=== PATIENT | female | born 1955 | race Caucasian/White ===

== ENCOUNTER 2016-11-17 13:54 | Outpatient (CLI) | payer MEDICAID | END 2016-11-17 13:55 | disposition home or self-care (01) | DX: M47.812 Spondylosis without myelopathy or radiculopathy, cervical region (principal) ==

== ENCOUNTER 2016-12-26 06:44 | Emergency (ER) | payer MEDICAID ==
[2016-12-26] MEDS ORDERED: ONDANSETRON ODT 4 MG TABLET TL STA (07:37)
[2016-12-26] MEDS ORDERED: MECLIZINE 12.5 MG TABLET PO STA (07:37)
[2016-12-26] MEDS ORDERED: MECLIZINE 12.5 MG TABLET PO ONE (07:41)
[2016-12-26] MEDS ORDERED: ONDANSETRON ODT 4 MG TABLET ONE (07:41)
== END 2016-12-26 09:35 | disposition home or self-care (01) ==
DX: R11.0 Nausea (principal); R42 Dizziness and giddiness
CPT/HCPCS: 36415; 80053; 82533; 83690; 83735; 85025; 85651; 87339; 99283; A9270; Q0162

== ENCOUNTER 2017-02-01 01:32 | Emergency (ER) | payer MEDICAID ==
[2017-02-01] MEDS ORDERED: OXYBUTYNIN 5MG TABLET PO STA (02:41)
== END 2017-02-01 02:56 | disposition home or self-care (01) ==
DX: R35.0 Frequency of micturition (principal); R30.0 Dysuria; R03.0 Elevated blood-pressure reading, without diagnosis of hypertension
CPT/HCPCS: 81003; 99283; A9270

== ENCOUNTER 2017-04-19 09:00 | Outpatient (CLI) | payer MEDICAID ==
[2017-04-19 09:49] LABS: FERRITIN 44.4 ng/mL (11.0-306.8)
[2017-04-19 09:54] LABS: FOLATE 21.55 ng/mL (5.90 - >24.8)
== END 2017-04-19 09:01 | disposition home or self-care (01) ==
LOC: LAB 09:00
PROVIDERS: ATTEND Family Medicine
DX: E87.6 Hypokalemia (principal)
CPT/HCPCS: 36415; 82728; 82746

== ENCOUNTER 2017-05-04 14:08 | Emergency (ER) | payer MEDICAID ==
--- NOTE | 2017-05-04 14:18 | ED Physician Documentation ---
PD HPI DYSPNEA - Stated complaint Stated Complaint: SOA - Chief complaint Chief Complaint: Resp - History obtained from History obtained from: Patient - History of Present Illness Timing - onset: How many days ago (9) Timing - onset during: Light activity Timing - duration: Days (9) Timing - details: Gradual onset, Still present, Waxing and waning Inciting event(s): URI (has had chest cough and congestion for 9 days, increased the past 2 days and with dyspnea at times.) Improved by: Sitting up Worsened by: Laying flat, Coughing Associated symptoms: Cough, Wheezing (tightness with cough). No: Fever, Hemoptysis, Palpitations, Bilateral edema Recently seen: Not recently seen Review of Systems Constitutional: reports: Chills (the past 2 days), Myalgias. denies: Fever Nose: reports: Congestion. denies: Rhinorrhea / runny nose Throat: denies: Sore throat Cardiac: denies: Chest pain / pressure, Palpitations Respiratory: reports: Dyspnea, Cough GI: denies: Nausea, Vomiting, Diarrhea Skin: denies: Rash, Lesions Neurologic: reports: Generalized weakness. 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 HEENT: Tonsil/Adenoidectomy - Present Medications Home Medications: Ambulatory Orders Medication Instructions Recorded Confirmed Cyclobenzaprine [Flexeril] 5 mg PO QPM PRN 12/15/14 02/01/17 Acetaminophen/Cod 300/30 [Tylenol 0.5 tab PO Q4HR PRN 08/04/15 02/01/17 #3] Cholecalciferol (Vitamin D3) 1,000 unit PO DAILY 10/14/16 02/01/17 [Vitamin D3] Cyanocobalamin (Vitamin B-12) 1,000 mcg PO DAILY 10/14/16 02/01/17 [Vitamin B-12] Multiple Herbs 10/14/16 Red Marine Algae 10/14/16 clonazePAM [KlonoPIN] 0.25 mg PO BID 10/14/16 02/01/17 Amitriptyline [Elavil] 10 mg ORAL QPM 12/26/16 02/01/17 Meclizine [Antivert] 12.5 mg PO Q6H PRN #30 tablet 12/26/16 02/01/17 Ondansetron HCl [Zofran] 4 mg PO Q6H PRN #20 tablet 12/26/16 02/01/17 Oxybutynin Chloride [Ditropan Xl] 5 mg PO DAILY #10 tab.er.24 02/01/17 Azithromycin [Zithromax] 250 mg PO DAILY #6 tablet 05/04/17 Dexamethasone [Decadron] 4 mg PO DAILY #5 tablet 05/04/17 - Allergies Allergies/Adverse Reactions: Allergies Allergy/AdvReac Type Severity Reaction Status Date / Time lithium [[place]] Allergy Severe swelling Verified 02/01/17 01:41 albuterol Allergy Intermediate tachycardia Verified 02/01/17 01:41 hydromorphone HCl * Allergy Mild itchy Verified 02/01/17 01:41 [From Dilaudid] - Social History Does the pt smoke?: No Smoking Status: Never smoker Does the pt drink ETOH?: No Does the pt have substance abuse?: Yes - Immunizations Immunizations are current?: Yes - POLST Patient has POLST: No PD ED PE NORMAL - Vitals Vital signs reviewed: Yes - General General: Alert and oriented X 3, No acute distress, Well developed/nourished - HEENT HEENT: Ears normal, Moist mucous membranes, Pharynx benign - Neck Neck: Supple, no meningeal sign, No adenopathy - Cardiac Cardiac: RRR, No murmur - Respiratory Respiratory: Clear bilaterally - Abdomen Abdomen: Normal bowel sounds, Soft, Non tender - Back Back: No CVA TTP - Derm Derm: Normal color, Warm and dry - Extremities Extremities: No edema, No calf tenderness / cord - Neuro Neuro: Alert and oriented X 3, No motor deficit, Normal speech Results - Vitals Vitals: Vital Signs - 24 hr 05/04/17 05/04/17 05/04/17 14:13 15:18 16:11 Temperature 36.8 C 36.9 C Heart Rate 117 H 79 77 Respiratory 22 18 16 Rate Blood Pressure 179/87 H 139/57 H 132/62 H O2 Saturation 99 99 98 Oxygen O2 Source Room air - Labs Labs: Laboratory Tests 05/04/17 05/04/17 05/04/17 15:07 15:07 15:07 WBC 5.5 RBC 4.53 Hgb 13.5 Hct 39.2 MCV 86.6 MCH 29.9 MCHC 34.5 RDW 12.3 Plt Count 254 MPV 7.3 L Neut # 3.1 Lymph # 1.9 [place] # 0.5 Eos # 0.1 Baso # 0.0 Absolute Nucleated RBC 0.00 Nucleated RBCs 0.0 Sodium 139 Potassium 3.7 Chloride 106 Carbon Dioxide 26 Anion Gap 7.0 BUN 12 Creatinine 0.6 Estimated GFR (MDRD) 101 Glucose 99 Calcium 9.3 Total Bilirubin 0.4 AST 21 ALT 12 Alkaline Phosphatase 96 Troponin I < 0.04 B-Natriuretic Peptide Total Protein 7.0 Albumin 4.6 Globulin 2.4 Albumin/Globulin Ratio 1.9 Lipase 34 05/04/17 15:07 WBC RBC Hgb Hct MCV MCH MCHC RDW Plt Count MPV Neut # Lymph # [place] # Eos # Baso # Absolute Nucleated RBC Nucleated RBCs Sodium Potassium Chloride Carbon Dioxide Anion Gap BUN Creatinine Estimated GFR (MDRD) Glucose Calcium Total Bilirubin AST ALT Alkaline Phosphatase Troponin I B-Natriuretic Peptide 30 Total Protein Albumin Globulin Albumin/Globulin Ratio Lipase - Rads (name of study) chest Radiology: Prelim report reviewed, EMP read contemporaneously (no infiltrates nor acute process) PD MEDICAL DECISION MAKING - ED course Complexity details: reviewed results, considered differential, d/w patient (she says she gets very jittery with Albuterol MDI. SOunds likely viral URI, though with some increased symptoms the past 2 days. Could be bacterial starting. She prefers not taking abx and they would have low chance of working, so will go with steroids and hebal tea/honey. She will contact her PMD tomorrow, but in case of worsening and delay in getting PMD, I wrote for steroid/abx combination in case. ) Departure - Departure Disposition: 01 Home, Self Care Clinical Impression: Dyspnea Qualifiers: Dyspnea type: shortness of breath Qualified Code(s): R06.02 - Shortness of breath Upper respiratory infection Qualifiers: URI type: unspecified URI Qualified Code(s): J06.9 - Acute upper respiratory infection, unspecified Condition: Stable Record reviewed to determine appropriate education?: Yes Instructions: ED URI Viral W Wheezing Follow-Up: Summer Price DO [Primary Care Provider] - Prescriptions: Dexamethasone [Decadron] 4 mg PO DAILY #5 tablet Azithromycin [Zithromax] 250 mg PO DAILY #6 tablet Comments: At this point, it sounds like a viral illness. No signs of heart attack, heart failure, pneumonia, other bad things. I would have you drink lots of fluids. We gave an anti-inflammatory dose here that will last for 2-3 days, so see how much improved you are. Follow up with your PMD. If you get worse and there is any problem with getting into her, then you could start the Zithromax antibiotic and continue the Decadron steroid for 5 days. I would not start those right now with current symptoms as I don't think an antibiotic would help right now. Your initial blood pressure was elevated here, but then it improved. Recheck with your PMD to see that it is consistently okay in follow up. Discharge Date/Time: 05/04/17 16:11
--- NOTE | 2017-05-04 15:07 | XRAY Preliminary Report ---
Exam: XR Chest 2 View PA/LAT IMPRESSION: Normal 2-view chest radiography. [facility] SITE ID: [id number]
--- NOTE | 2017-05-04 15:12 | XRAY Report ---
EXAM: CHEST RADIOGRAPHY EXAM DATE: 05/04/2017 02:53 PM. CLINICAL HISTORY: Dyspnea and congestion for 8-9 days. COMPARISON: 11/17/2014. TECHNIQUE: 2 views. FINDINGS: Lungs/Pleura: No focal opacities evident. No pleural effusion. No pneumothorax. Normal volumes. Mediastinum: Heart and mediastinal contours are unremarkable. Other: None. IMPRESSION: Normal 2-view chest radiography. [facility] Referring Provider Line: [phone] SITE ID: [id number]
[2017-05-04 15:20] LABS: BASOPHILS % (AUTO) 0.6 %; EOSINOPHILS # (AUTO) 0.1 10^3/uL (0.0-0.7); EOSINOPHILS % (AUTO) 1.2 %; HCT - HEMATOCRIT 39.2 % (37.0-47.0); HGB - HEMOGLOBIN 13.5 g/dL (12.0-16.0); LYMPHOCYTES # (AUTO) 1.9 10^3/uL (1.5-3.5); LYMPHOCYTES % (AUTO) 33.5 %; MEAN CORPUSCULAR HEMOGLOBIN 29.9 pg (27.0-31.0); MEAN CORPUSCULAR HGB CONC 34.5 g/dL (32.0-36.0); MEAN CORPUSCULAR VOLUME 86.6 fL (81.0-99.0); MEAN PLATELET VOLUME 7.3 fL (7.9-10.8); MONOCYTES # (AUTO) 0.5 10^3/uL (0.0-1.0); MONOCYTES % (AUTO) 8.3 %; NEUTROPHILS # (AUTO) 3.1 10^3/uL (1.5-6.6); NEUTROPHILS % (AUTO) 56.4 %; RED BLOOD COUNT 4.53 10^6/uL (4.20-5.40); RED CELL DISTRIBUTION WIDTH 12.3 % (12.0-15.0); UNCORRECTED WHITE BLOOD COUNT 5.5 x10^3/uL; WHITE BLOOD COUNT 5.5 x10^3/uL (4.8-10.8)
[2017-05-04 15:28] LABS: ALBUMIN/GLOBULIN RATIO 1.9 (1.0-2.2); BILIRUBIN,TOTAL 0.4 mg/dL (0.2-1.0); CALCIUM 9.3 mg/dL (8.5-10.3); CREATININE 0.6 mg/dL (0.4-1.0); POTASSIUM 3.7 mmol/L (3.5-5.0)
[2017-05-04] MEDS ORDERED: DEXAMETHASONE 10 MG/ML VIAL PO STA (16:05)
[2017-05-04] MEDS ORDERED: DEXAMETHASONE 10 MG/ML VIAL ONE (16:07)
[2017-05-04] MEDS ORDERED: CHERRY SYRUP 10 ML UDC PO ONE (16:07)
[2017-05-04 16:13] VITALS: BP 132/62
== END 2017-05-04 16:11 | disposition home or self-care (01) ==
LOC: ED 14:08
DX: J06.9 Acute upper respiratory infection, unspecified (principal); R03.0 Elevated blood-pressure reading, without diagnosis of hypertension
CPT/HCPCS: 36415; 71020; 80053; 83690; 83880; 84484; 85025; 93005; 99283; 99284; A9270

== ENCOUNTER 2017-07-02 09:25 | Outpatient (CLI) | payer MEDICAID | END 2017-07-02 09:26 | disposition home or self-care (01) | LOC: LAB 09:25 | PROVIDERS: ATTEND Family Medicine | DX: E87.6 Hypokalemia (principal) | CPT/HCPCS: 36415; 84132 ==

== ENCOUNTER 2017-09-23 13:08 | Outpatient (CLI) | payer MEDICAID ==
[2017-09-23 14:03] LABS: BASOPHILS % (AUTO) 0.6 %; EOSINOPHILS % (AUTO) 0.8 %; HCT - HEMATOCRIT 38.4 % (37.0-47.0); HGB - HEMOGLOBIN 13.3 g/dL (12.0-16.0); LYMPHOCYTES # (AUTO) 2.1 10^3/uL (1.5-3.5); LYMPHOCYTES % (AUTO) 41.9 %; MEAN CORPUSCULAR HEMOGLOBIN 30.1 pg (27.0-31.0); MEAN CORPUSCULAR HGB CONC 34.7 g/dL (32.0-36.0); MEAN CORPUSCULAR VOLUME 86.7 fL (81.0-99.0); MEAN PLATELET VOLUME 7.7 fL (7.9-10.8); MONOCYTES # (AUTO) 0.4 10^3/uL (0.0-1.0); MONOCYTES % (AUTO) 8.2 %; NEUTROPHILS # (AUTO) 2.4 10^3/uL (1.5-6.6); NEUTROPHILS % (AUTO) 48.5 %; RED BLOOD COUNT 4.43 10^6/uL (4.20-5.40); RED CELL DISTRIBUTION WIDTH 12.3 % (12.0-15.0); UNCORRECTED WHITE BLOOD COUNT 4.9 x10^3/uL; WHITE BLOOD COUNT 4.9 x10^3/uL (4.8-10.8)
[2017-09-23 14:41] LABS: THYROID STIMULATING HORMONE 0.49 uIU/mL (0.34-5.60)
== END 2017-09-23 13:09 | disposition home or self-care (01) ==
LOC: LAB 13:08
PROVIDERS: ATTEND Family Medicine
DX: E53.8 Deficiency of other specified B group vitamins (principal); K90.9 Intestinal malabsorption, unspecified
CPT/HCPCS: 36415; 83690; 84207; 84439; 84443; 84481; 85025

== ENCOUNTER 2017-10-07 11:44 | Emergency (ER) | payer MEDICAID ==
--- NOTE | 2017-10-07 12:12 | ED Physician Documentation ---
PD HPI ABD PAIN - Stated complaint Stated Complaint: ABD PX/FEVER - Chief complaint Chief Complaint: Abd Pain - History obtained from History obtained from: Patient - History of Present Illness Timing - onset: How many months ago Timing - duration: Months Timing - details: Gradual onset, Waxing and waning Quality: Cramping, Aching, Sharp, Pain Location: LLQ Improved by: No: BM, Position Worsened by: Eating. No: Position Associated symptoms: Nausea, Diarrhea, Constipation (alternates stool type from soft to solid, without blood nor melena, no mucous.), Chest pain (left lower ribs pain from costchondral inflammation chronically.). No: Fever, Vomiting, Dysuria, Near syncope / syncope Similar symptoms before: No diagnosis Recently seen: Clinic (about 12 days ago, with lab tests. Patient says her PMD was going to do U/S of left abd about this pain.) Review of Systems Constitutional: reports: Myalgias, Fatigue. denies: Fever, Chills Nose: denies: Rhinorrhea / runny nose, Congestion Throat: denies: Sore throat Respiratory: denies: Cough GI: reports: Nausea, Constipation, Diarrhea. denies: Vomiting, Bloody / black stool : denies: Dysuria, Frequency Skin: denies: Rash, Lesions Neurologic: reports: Generalized weakness. 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 HEENT: Tonsil/Adenoidectomy - Present Medications Home Medications: Ambulatory Orders Medication Instructions Recorded Confirmed Cyclobenzaprine [Flexeril] 5 mg PO QPM PRN 12/15/14 02/01/17 Acetaminophen/Cod 300/30 [Tylenol 0.5 tab PO Q4HR PRN 08/04/15 02/01/17 #3] Cholecalciferol (Vitamin D3) 1,000 unit PO DAILY 10/14/16 02/01/17 [Vitamin D3] Cyanocobalamin (Vitamin B-12) 1,000 mcg PO DAILY 12/07/16 03/27/17 [Vitamin B-12] Multiple Herbs 10/14/16 Red Marine Algae 10/14/16 clonazePAM [KlonoPIN] 0.25 mg PO BID 10/14/16 02/01/17 Amitriptyline [Elavil] 10 mg ORAL QPM 12/26/16 02/01/17 Meclizine [Antivert] 12.5 mg PO Q6H PRN #30 tablet 12/26/16 02/01/17 Ondansetron HCl [Zofran] 4 mg PO Q6H PRN #20 tablet 12/26/16 02/01/17 Oxybutynin Chloride [Ditropan Xl] 5 mg PO DAILY #10 tab.er.24 02/01/17 Azithromycin [Zithromax] 250 mg PO DAILY #6 tablet 05/04/17 Dexamethasone [Decadron] 4 mg PO DAILY #5 tablet 05/04/17 Digestive 8/L.acidoph/Pectin 2 each PO DAILY #60 tablet 10/07/17 [Digestive Enzymes Tablet] Psyllium [Metamucil] 1 each PO DAILY #30 packet 10/07/17 - Allergies Allergies/Adverse Reactions: Allergies Allergy/AdvReac Type Severity Reaction Status Date / Time lithium [[place]] Allergy Severe swelling Verified 10/07/17 12:00 albuterol Allergy Intermediate tachycardia Verified 10/07/17 12:00 hydromorphone HCl * Allergy Mild itchy Verified 10/07/17 12:00 [From Dilaudid] - Social History Does the pt smoke?: No Smoking Status: Never smoker Does the pt drink ETOH?: No Does the pt have substance abuse?: Yes - Immunizations Immunizations are current?: Yes - POLST Patient has POLST: No PD ED PE NORMAL - Vitals Vital signs reviewed: Yes - General General: Alert and oriented X 3, No acute distress, Well developed/nourished - HEENT HEENT: Atraumatic, Ears normal, Moist mucous membranes, Pharynx benign - Neck Neck: Supple, no meningeal sign, No adenopathy, Thyroid normal - Cardiac Cardiac: RRR, No murmur, No rub - Respiratory Respiratory: Clear bilaterally, Other (left lower costal margin with cartilage tenderness. ) - Abdomen Abdomen: Normal bowel sounds, Soft, Non distended, No organomegaly, Other ( tender left mid to lower abd without guarding nor percussion tenderness. ) - Female Female : Deferred - Rectal Rectal: Deferred - Back Back: No CVA TTP - Derm Derm: Normal color, Warm and dry, No rash - Extremities Extremities: No deformity, No tenderness to palpate, Normal ROM s pain, No edema , No calf tenderness / cord - Neuro Neuro: Alert and oriented X 3, No motor deficit, Normal speech Eye Opening: Spontaneous Motor: Obeys Commands Verbal: Oriented GCS Score: 15 - Psych Psych: Normal mood Results - Vitals Vitals: Vital Signs - 24 hr 10/07/17 10/07/17 10/07/17 11:50 13:37 15:17 Temperature 36.9 C Heart Rate 134 H 82 76 Respiratory 18 16 16 Rate Blood Pressure 137/79 H 135/75 H 132/67 H O2 Saturation 100 99 17 L Oxygen O2 Source Room air - Labs Labs: Laboratory Tests 10/07/17 10/07/17 10/07/17 12:15 12:15 12:15 WBC 6.7 RBC 4.56 Hgb 13.9 Hct 39.3 MCV 86.3 MCH 30.4 MCHC 35.3 RDW 12.5 Plt Count 255 MPV 7.2 L Neut # 4.3 Lymph # 1.9 [place] # 0.5 Eos # 0.0 Baso # 0.0 Absolute Nucleated RBC 0.00 Nucleated RBC % 0.0 ESR 5 Sodium 138 Potassium 3.6 Chloride 103 Carbon Dioxide 26 Anion Gap 9.0 BUN 10 Creatinine 0.7 Estimated GFR (MDRD) 85 L Glucose 131 H Calcium 9.1 Total Bilirubin 0.6 AST 18 ALT < 10 L Alkaline Phosphatase 86 C-Reactive Protein < 0.5 Total Protein 7.2 Albumin 4.9 Globulin 2.3 Albumin/Globulin Ratio 2.1 Lipase 23 Vitamin B12 Cortisol Urine Color Urine Clarity Urine pH Ur Specific [place] Urine Protein Urine Glucose (UA) Urine Ketones Urine Occult Blood Urine Nitrite Urine Bilirubin Urine Urobilinogen Ur Leukocyte Esterase Ur Microscopic Review Urine Culture Comments 10/07/17 10/07/17 12:15 13:22 WBC RBC Hgb Hct MCV MCH MCHC RDW Plt Count MPV Neut # Lymph # [place] # Eos # Baso # Absolute Nucleated RBC Nucleated RBC % ESR Sodium Potassium Chloride Carbon Dioxide Anion Gap BUN Creatinine Estimated GFR (MDRD) Glucose Calcium Total Bilirubin AST ALT Alkaline Phosphatase C-Reactive Protein Total Protein Albumin Globulin Albumin/Globulin Ratio Lipase Vitamin B12 > 7000 H Cortisol 12.6 Urine Color YELLOW Urine Clarity CLEAR Urine pH 6.5 Ur Specific [place] 1.015 Urine Protein NEGATIVE Urine Glucose (UA) NEGATIVE Urine Ketones NEGATIVE Urine Occult Blood TRACE-INTA Urine Nitrite NEGATIVE Urine Bilirubin NEGATIVE Urine Urobilinogen 0.2 (NORMAL) Ur Leukocyte Esterase NEGATIVE Ur Microscopic Review NOT INDICATED Urine Culture Comments NOT INDICATED - Rads (name of study) abd CT Radiology: Prelim report reviewed (no acute process seen) PD MEDICAL DECISION MAKING - ED course Complexity details: reviewed results, considered differential, d/w patient Departure - Departure Disposition: Home, Self Care Clinical Impression: Abdominal pain Qualifiers: Abdominal location: left upper quadrant Qualified Code(s): R10.12 - Left upper quadrant pain Condition: Stable Record reviewed to determine appropriate education?: Yes Instructions: ED Abdominal Pain Unkn Cause Follow-Up: Summre Price DO [Primary Care Provider] - Prescriptions: Digestive 8/L.acidoph/Pectin [Digestive Enzymes Tablet] 2 each PO DAILY #60 tablet Psyllium [Metamucil] 1 each PO DAILY #30 packet Comments: There is not an obvious cause of your pain based on the CT scan or blood tests we did today. I did print the results of what we had done. There is one test still pending results which is a heavy metal screen. Continue usual medications. Consider possible irritable bowel and you could try daily added fiber (I knew you eat well vegan diet already) and digestive enzymes daily. Follow-up with your primary care for further evaluation. Discharge Date/Time: 10/07/17 15:23
[2017-10-07] MEDS ORDERED: KETOROLAC 60 MG/2 ML VIAL IVP STA (12:35)
[2017-10-07] MEDS ORDERED: SODIUM CHLORIDE 0.9% 1,000 ML IV ONE (12:35)
[2017-10-07] MEDS ORDERED: KETOROLAC 30 MG/ML VIAL ONE (12:57)
[2017-10-07 13:07] LABS: BASOPHILS % (AUTO) 0.4 %; EOSINOPHILS % (AUTO) 0.7 %; HCT - HEMATOCRIT 39.3 % (37.0-47.0); HGB - HEMOGLOBIN 13.9 g/dL (12.0-16.0); LYMPHOCYTES # (AUTO) 1.9 10^3/uL (1.5-3.5); LYMPHOCYTES % (AUTO) 27.7 %; MEAN CORPUSCULAR HEMOGLOBIN 30.4 pg (27.0-31.0); MEAN CORPUSCULAR HGB CONC 35.3 g/dL (32.0-36.0); MEAN CORPUSCULAR VOLUME 86.3 fL (81.0-99.0); MEAN PLATELET VOLUME 7.2 fL (7.9-10.8); MONOCYTES # (AUTO) 0.5 10^3/uL (0.0-1.0); MONOCYTES % (AUTO) 7.6 %; NEUTROPHILS # (AUTO) 4.3 10^3/uL (1.5-6.6); NEUTROPHILS % (AUTO) 63.6 %; RED BLOOD COUNT 4.56 10^6/uL (4.20-5.40); RED CELL DISTRIBUTION WIDTH 12.5 % (12.0-15.0); UNCORRECTED WHITE BLOOD COUNT 6.7 x10^3/uL; WHITE BLOOD COUNT 6.7 x10^3/uL (4.8-10.8)
[2017-10-07 13:17] LABS: ALBUMIN/GLOBULIN RATIO 2.1 (1.0-2.2); BILIRUBIN,TOTAL 0.6 mg/dL (0.2-1.0); BUN - BLOOD UREA NITROGEN 10 mg/dL (6-20); CALCIUM 9.1 mg/dL (8.5-10.3); CARBON DIOXIDE - CO2 26 mmol/L (21-32); CHLORIDE 103 mmol/L (101-111); CREATININE 0.7 mg/dL (0.4-1.0); GFR - MDRD 85 (>89); GLUCOSE 131 mg/dL (70-100); LIPASE 23 U/L (22-51); POTASSIUM 3.6 mmol/L (3.5-5.0); SODIUM 138 mmol/L (135-145); TOTAL PROTEIN 7.2 g/dL (6.7-8.2)
[2017-10-07] MEDS ORDERED: IOPAMIDOL-300 100 ML VIAL ONE (13:25)
[2017-10-07 13:28] LABS: CORTISOL 12.6 ug/dL
[2017-10-07 13:41] LABS: BILIRUBIN,URINE NEGATIVE (NEGATIVE); PH,URINE 6.5 PH (5.0-7.5)
[2017-10-07 13:43] LABS: UA CHARGE (STRIP ONLY) YES; UR CULTURE IF IND NOT INDICATED
[2017-10-07] MEDS ORDERED: IOPAMIDOL-300 100 ML VIAL IVP ONE (13:53)
--- NOTE | 2017-10-07 14:12 | CT Preliminary Report ---
Exam: CT ABDOMEN/PELVIS W/ IMPRESSION: Normal abdomen and pelvis CT. [facility] SITE ID: [id number]
--- NOTE | 2017-10-07 14:15 | CT Report ---
EXAM: CT ABDOMEN AND PELVIS EXAM DATE: 10/07/2017 01:54 PM. CLINICAL HISTORY: Left sided abd pain for months. COMPARISONS: 12/08/2014. TECHNIQUE: Routine helical CT imaging was performed through the abdomen and pelvis. IV contrast: Isov ue 300 100mL. Enteric contrast: No. Reconstructions: Coronal and sagittal. In accordance with CT protocol optimization, one or more of the following dose reduction techniques w ere utilized for this exam: automated exposure control, adjustment of mA and/or KV based on patient s ize, or use of iterative reconstructive technique. FINDINGS: Lung Bases: Unremarkable. Liver: Normal. No masses. Gallbladder/Bile Ducts: Unremarkable. Spleen: Normal. Small accessory spleen. Pancreas: Normal. Adrenal Glands: Normal. Kidneys: Normal. No masses or hydronephrosis. Peritoneal Cavity/Bowel: Normal. No free fluid, free air or adenopathy. No masses or acute inflammato ry process. The appendix is well visualized and normal. Pelvic Organs: Normal. The bladder and visualized pelvic organs are within normal limits. Vasculature: No aneurysms or other significant abnormality. Bones: No significant abnormality. Other: None. IMPRESSION: Normal abdomen and pelvis CT. [facility] Referring Provider Line: [phone] SITE ID: [id number]
[2017-10-07 15:18] VITALS: BP 132/67
[2017-10-12 09:01] LABS: LEAD (B) COLLECTION SAMPLE Venous
== END 2017-10-07 15:23 | disposition home or self-care (01) ==
LOC: ED 11:44
DX: R10.32 Left lower quadrant pain (principal); R50.9 Fever, unspecified; R11.0 Nausea; E03.9 Hypothyroidism, unspecified
CPT/HCPCS: 36415; 74177; 80053; 81003; 82175; 82533; 82607; 83655; 83690; 83825; 85025; 85651; 86140; 96361; 96374; 99283; Q9967; 81001; 87086

== ENCOUNTER 2017-11-01 05:40 | Emergency (ER) | payer MEDICAID ==
--- NOTE | 2017-11-01 06:05 | ED Physician Documentation ---
History of Present Illness - Stated complaint Stated Complaint: BLINDNESS RT EYE - Chief complaint Chief Complaint: Heent - History obtained from History obtained from: Patient (pt here for evaluation of loss of vision to the right eye. states that it has happened 3 jackson over the past week. no pain with the symptoms. states that it happended this AM when she walked out of the bathroom (light to dark). lasted a few minutes, no pain, completely resolved. No fevers, does wear glasses. staetes that she had a "complete" eye exam a couple months ago for "neurologic problems".) Review of Systems Constitutional: denies: Fever, Chills Eyes: reports: Loss of vision. denies: Decreased vision, Photophobia, Discharge , Irritation Ears: denies: Loss of hearing, Ear pain, Drainage/discharge Nose: denies: Epistaxis, Sinus pressure / pain, Foreign Body Throat: denies: Dental pain / toothache Cardiac: denies: Chest pain / pressure, Palpitations Respiratory: denies: Dyspnea, Cough GI: denies: Abdominal Pain, Nausea, Vomiting, Constipation, Diarrhea : denies: Dysuria Skin: denies: Rash, Lesions Musculoskeletal: denies: Neck pain, Back pain Neurologic: denies: Generalized weakness, Focal weakness, Headache PD PAST MEDICAL HISTORY - Past Medical History Cardiovascular: None Respiratory: None Neuro: None Endocrine/Autoimmune: HyPOthyroidism GI: Hiatal hernia 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 : None HEENT: Other Psych: Anxiety Musculoskeletal: None Derm: None Other Past Medical History: B12 deficiency - Past Surgical History Past Surgical History: Yes General: Hiatal hernia 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: Breast 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 HEENT: Tonsil/Adenoidectomy - Present Medications Home Medications: Ambulatory Orders Medication Instructions Recorded Confirmed Cyclobenzaprine [Flexeril] 10 mg PO PRN PRN 12/15/14 02/01/17 Acetaminophen/Cod 300/30 [Tylenol 0.5 tab PO PRN PRN 08/04/15 02/01/17 #3] Cholecalciferol (Vitamin D3) 1,000 unit PO DAILY 10/14/16 11/01/17 [Vitamin D3] Cyanocobalamin (Vitamin B-12) 1,000 mcg PO DAILY 10/14/16 02/01/17 [Vitamin B-12] Multiple Herbs 10/14/16 Red Marine Algae 12/07/16 clonazePAM [KlonoPIN] 0.5 mg PO PRN PRN 10/14/16 11/01/17 Amitriptyline [Elavil] 10 mg ORAL PRN PRN 12/26/16 02/01/17 Digestive 8/L.acidoph/Pectin 2 each PO DAILY #60 tablet 10/07/17 [Digestive Enzymes Tablet] Ondansetron HCl [Zofran] 4 mg PO PRN PRN 11/01/17 11/01/17 - Allergies Allergies/Adverse Reactions: Allergies Allergy/AdvReac Type Severity Reaction Status Date / Time lithium [[place]] Allergy Severe swelling Verified 10/07/17 12:00 albuterol Allergy Intermediate tachycardia Verified 10/07/17 12:00 hydromorphone HCl * Allergy Mild itchy Verified 10/07/17 12:00 [From Dilaudid] - Social History Does the pt smoke?: No Smoking Status: Never smoker Does the pt drink ETOH?: No Does the pt have substance abuse?: Yes - Immunizations Immunizations are current?: Yes - POLST Patient has POLST: No PD ED PE NORMAL - Vitals Vital signs reviewed: Yes - General General: Alert and oriented X 3, No acute distress, Well developed/nourished - HEENT HEENT: Atraumatic, PERRL, EOMI, Moist mucous membranes, Pharynx benign - Neck Neck: Supple, no meningeal sign, No bony TTP - Cardiac Cardiac: No murmur. No: RRR (tachycardic to 03 but regular) - Respiratory Respiratory: No respiratory distress - Derm Derm: Normal color, Warm and dry, No rash - Neuro Neuro: Alert and oriented X 3, electrophysiology nurse practitioner 2-12 intact, No motor deficit, No sensory deficit, Normal speech Eye Opening: Spontaneous Motor: Obeys Commands Verbal: Oriented GCS Score: 15 - Psych Psych: Normal mood, Normal affect PD ED PE EXPANDED - Eyes Eyes: Visual acuity - see nn, PERRL, Normal accommodation, EOMI, Normal eyelids , Nl conjunctiva/sclera, Normal corneas, Temp arteries nontender, Other (IOP right eye 18, IOP left eye 20). No: Unequal pupils, Abnormal accommodation, Injected conj/sclera, Subconj hemorrhage, Corneal FB, Corneal abrasion, Corneal ulcer, Fluorescein uptake, Temp artery TTP Results - Vitals Vitals: Vital Signs - 24 hr 11/01/17 05:47 Temperature 36.7 C Heart Rate 103 H Respiratory 18 Rate Blood Pressure 154/79 H O2 Saturation 99 Oxygen O2 Source Room air - Rads (name of study) Head CT Radiology: Final report received PD MEDICAL DECISION MAKING - ED course Complexity details: reviewed results, re-evaluated patient, considered differential, d/w patient ED course: pt with painless vision loss to her right eye this morning that has since resolved. she has no symptoms at the time of my evaluation. head CT neg. discussed her symptoms with her. she has a primary care provider and a eye provider. she discussed return precautions. doubt emergent condition today. Departure - Departure Disposition: 01 Home, Self Care Clinical Impression: Vision loss Condition: Good Instructions: Vision Probs Follow-Up: Summer Price DO [Primary Care Provider] - Comments: You need to follow up with your primary care provider to discuss a consult to see neurology and an eye provider. Return to the ER for any new or worsening symptoms.
--- NOTE | 2017-11-01 06:39 | CT Preliminary Report ---
Exam: CT HEAD W/O IMPRESSION: Generalized age-related cortical atrophic changes without evidence of acute intracranial abnormality. [facility] SITE ID: [id number]
--- NOTE | 2017-11-01 06:44 | CT Report ---
EXAM: CT HEAD EXAM DATE: 11/01/2017 06:21 AM. CLINICAL HISTORY: Right-sided vision loss. COMPARISON: Brain CT from 10/14/2016 and brain MRI from 11/17/2016. TECHNIQUE: Multiaxial CT images were obtained from the foramen magnum to the vertex. Reformats: Coron al. IV contrast: None. In accordance with CT protocol optimization, one or more of the following dose reduction techniques w ere utilized for this exam: automated exposure control, adjustment of mA and/or KV based on patient s ize, or use of iterative reconstructive technique. FINDINGS: Parenchyma: No intraparenchymal hemorrhage. No evidence of mass, midline shift, or CT findings of acu te infarction. Balbuena-white differentiation is distinct. Diffuse chronic microangiopathic white matter changes are evident. Extraaxial Spaces: Normal for age. No subdural or epidural collections identified. Ventricles: The ventricles and cortical sulci are mildly enlarged, consistent with age-related tissue loss. Sinuses and orbits: A small mucous retention cyst is noted in the left maxillary sinus. The orbits an d mastoid sinuses are unremarkable. Bones: No evidence of fracture or calvarial defect. Other: Mild intracranial atherosclerosis is noted. IMPRESSION: Generalized age-related cortical atrophic changes without evidence of acute intracranial abnormality. [facility] Referring Provider Line: [phone] SITE ID: [id number]
[2017-11-01 06:57] VITALS: BP 137/69
== END 2017-11-01 07:02 | disposition home or self-care (01) ==
LOC: ED 05:40
DX: H54.61 Unqualified visual loss, right eye, normal vision left eye (principal); E03.9 Hypothyroidism, unspecified; E53.8 Deficiency of other specified B group vitamins; K44.9 Diaphragmatic hernia without obstruction or gangrene
CPT/HCPCS: 70450; 99283

== ENCOUNTER 2017-12-14 07:11 | Outpatient (CLI) | payer MEDICAID ==
[2017-12-14 07:56] LABS: CALCIUM 9.2 mg/dL (8.5-10.3); CREATININE 0.7 mg/dL (0.4-1.0)
[2017-12-14 08:16] LABS: THYROID STIMULATING HORMONE 0.25 uIU/mL (0.34-5.60)
[2017-12-14 08:18] LABS: FREE T4 (FREE THYROXINE) 0.85 ng/dL (0.58-1.64)
[2017-12-14 08:23] LABS: FERRITIN 68.3 ng/mL (11.0-306.8)
[2017-12-15 11:51] LABS: HOMOCYSTEINE 6.3 umol/L (<10.4)
== END 2017-12-14 07:12 | disposition home or self-care (01) ==
LOC: LAB 07:11
PROVIDERS: ATTEND Family Medicine
DX: E53.8 Deficiency of other specified B group vitamins (principal); G62.9 Polyneuropathy, unspecified; E55.9 Vitamin D deficiency, unspecified; E03.9 Hypothyroidism, unspecified
CPT/HCPCS: 36415; 80048; 82306; 82728; 82746; 83090; 83921; 84439; 84443; 84481

== ENCOUNTER 2018-01-20 06:57 | Emergency (ER) | payer MEDICAID ==
[2018-01-20] MEDS ORDERED: DEXAMETHASONE 10 MG/ML VIAL PO STA (07:24)
--- NOTE | 2018-01-20 07:27 | ED Physician Documentation ---
PD HPI BACK PAIN - Stated complaint Stated Complaint: LOW BACK PX - Chief complaint Chief Complaint: Back Pain - History obtained from History obtained from: Patient - History of Present Illness Timing - onset: How many days ago (3) Timing - duration: Days (3) Timing - details: Gradual onset, Still present, Waxing and waning Location: Lower Quality: Pain, Spasm, Sharp, Similar to prior episodes Associated symptoms: No: Fever, Weakness, Numbness, Incontinent of urine, Unable to urinate, Hematuria, Incontinent of stool Improves with: Rest, Position, Meds Worsened by: Movement Contributing factors: Lifting Similar symptoms before: Diagnosis (sciatica) Recently seen: Clinic - Additional information Additional information: 62-year-old female reports that she has chronic low back pain and muscle spasms as well as sciatic symptoms. She had an adjustment done by her primary care doctor and the following day she lifted something heavy and her back is been in spasm since. She has had a hard time sleeping she is taking some pain medication muscle relaxant. She gives additional history that she is constantly and chronically having a hard time staying hydrated and she feels she has some nutritional deficiencies. Review of Systems Constitutional: denies: Fever Eyes: reports: Loss of vision (now resolved) Ears: denies: Ear pain Nose: denies: Congestion Throat: denies: Sore throat Respiratory: reports: Dyspnea. denies: Cough GI: reports: Abdominal Pain, Nausea : reports: Dysuria. denies: Frequency Skin: denies: Rash Musculoskeletal: reports: Back pain, Extremity pain. denies: Neck pain Neurologic: reports: Generalized weakness. denies: Focal weakness, Numbness PD PAST MEDICAL HISTORY - Past Medical History Cardiovascular: None Respiratory: None Neuro: None Endocrine/Autoimmune: HyPOthyroidism GI: Hiatal hernia YACHT HAND: None : None HEENT: Other Psych: Anxiety Musculoskeletal: None Derm: None - Past Surgical History Past Surgical History: Yes General: Hiatal hernia repair /YACHT HAND: Breast reduction HEENT: Tonsil/Adenoidectomy - Present Medications Home Medications: Ambulatory Orders Medication Instructions Recorded Confirmed Cyclobenzaprine [Flexeril] 10 mg PO PRN PRN 12/15/14 02/01/17 Acetaminophen/Cod 300/30 [Tylenol 0.5 tab PO PRN PRN 08/04/15 02/01/17 #3] Cholecalciferol (Vitamin D3) 1,000 unit PO DAILY 10/14/16 11/01/17 [Vitamin D3] Cyanocobalamin (Vitamin B-12) 1,000 mcg PO DAILY 10/14/16 02/01/17 [Vitamin B-12] Multiple Herbs 10/14/16 Red Marine Algae 10/14/16 clonazePAM [KlonoPIN] 0.5 mg PO PRN PRN 10/14/16 11/01/17 Amitriptyline [Elavil] 10 mg ORAL PRN PRN 12/26/16 02/01/17 Digestive 8/L.acidoph/Pectin 2 each PO DAILY #60 tablet 10/07/17 [Digestive Enzymes Tablet] Ondansetron HCl [Zofran] 4 mg PO PRN PRN 11/01/17 11/01/17 - Allergies Allergies/Adverse Reactions: Allergies Allergy/AdvReac Type Severity Reaction Status Date / Time lithium [[place]] Allergy Severe swelling Verified 10/07/17 12:00 albuterol Allergy Intermediate tachycardia Verified 10/07/17 12:00 hydromorphone HCl * Allergy Mild itchy Verified 10/07/17 12:00 [From Dilaudid] - Social History Does the pt smoke?: No Smoking Status: Never smoker Does the pt drink ETOH?: No Does the pt have substance abuse?: Yes - Immunizations Immunizations are current?: Yes - POLST Patient has POLST: No PD ED PE NORMAL - Vitals Vital signs reviewed: Yes (tachy and hypertensive ) - General General: Alert and oriented X 3, Well developed/nourished, 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 The patient is thin and the muscles are small and densely in spasm. ) - Derm Derm: Normal color, Warm and dry, No rash - Extremities Extremities: No deformity, No edema - Neuro Neuro: Alert and oriented X 3, No motor deficit, No sensory deficit, Normal speech Eye Opening: Spontaneous Motor: Obeys Commands Verbal: Oriented GCS Score: 15 - Psych Psych: Other (mood is helpless and the affect is flat. ) Results - Vitals Vitals: Vital Signs - 24 hr 01/20/18 01/20/18 01/20/18 07:00 08:40 10:57 Temperature 36.6 C 36.3 C L Heart Rate 114 H 74 82 Respiratory 20 14 15 Rate Blood Pressure 174/73 H 113/54 L 129/74 O2 Saturation 99 98 97 Oxygen O2 Source Room air - Labs Labs: Laboratory Tests 01/20/18 01/20/18 01/20/18 07:51 07:51 08:20 WBC 7.5 RBC 4.68 Hgb 13.9 Hct 40.7 MCV 87.1 MCH 29.7 MCHC 34.0 RDW 12.6 Plt Count 242 MPV 7.2 L Neut # 5.2 Lymph # 1.7 [place] # 0.6 Eos # 0.0 Baso # 0.1 Absolute Nucleated RBC 0.00 Nucleated RBC % 0.0 Sodium 138 Potassium 3.6 Chloride 101 Carbon Dioxide 29 Anion Gap 8.0 BUN 11 Creatinine 0.7 Estimated GFR (MDRD) 85 L Glucose 122 H Calcium 9.5 Total Bilirubin 0.5 AST 20 ALT 11 Alkaline Phosphatase 92 Total Protein 7.6 Albumin 4.9 Globulin 2.7 Albumin/Globulin Ratio 1.8 Lipase 22 Urine Color YELLOW Urine Clarity CLEAR Urine pH 7.0 Ur Specific [place] 1.010 Urine Protein NEGATIVE Urine Glucose (UA) NEGATIVE Urine Ketones NEGATIVE Urine Occult Blood NEGATIVE Urine Nitrite NEGATIVE Urine Bilirubin NEGATIVE Urine Urobilinogen 0.2 (NORMAL) Ur Leukocyte Esterase NEGATIVE Ur Microscopic Review NOT INDICATED Urine Culture Comments NOT INDICATED Procedures - IVC sono (time) 0730 Bedside IVC sono: IVC measures (cm) (0.71), IVC collapsed c insp (cm) (complete) , Significant dehydration (est 3 liter deficit) PD MEDICAL DECISION MAKING - ED course Complexity details: reviewed old records, reviewed results, re-evaluated patient , considered differential, d/w patient ED course: 62-year-old female with a history of depression and chronic back pain has developed worsening of her back pain and has dense muscle spasm. The patient presents to the emergency department with a heart rate of 114 And has dense spasm of her muscles. I suspected dehydration as a etiology of the tachycardia and the denseness of the muscle spasm. In addition in review of her history she appears to have had episodes of loss of vision which I also suspect are related to dehydration. She relates further history that her episodes of dizziness and lightheadedness are worse than usual. I suspect she has an issue with chronic dehydration. On interrogation of the inferior vena cava her level of dehydration is significant in fact the estimation of the deficit is about 3 L. I suspect that a lot of the symptoms the patient is experiencing are related specifically to dehydration and I have offered intravenous hydration to the patient and she has accepted. She is administered 2 liters of saline IV with improvement in her symptoms. Departure - Departure Disposition: 01 Home, Self Care Clinical Impression: Dehydration, Spasm of back muscles Condition: Stable Instructions: ED Spasm Back No Trauma, ED Dehydration Follow-Up: Summer Price DO [Primary Care Provider] - Discharge Date/Time: 01/20/18 10:57
[2018-01-20] MEDS ORDERED: SODIUM CHLORIDE 0.9% 1,000 ML IV ONE ×2 (07:42→08:48)
[2018-01-20] MEDS ORDERED: DEXAMETHASONE 10 MG/ML VIAL IVP STA (07:42)
[2018-01-20 07:56] LABS: BASOPHILS # (AUTO) 0.1 10^3/uL (0.0-0.1); BASOPHILS % (AUTO) 0.8 %; EOSINOPHILS % (AUTO) 0.5 %; HGB - HEMOGLOBIN 13.9 g/dL (12.0-16.0); LYMPHOCYTES # (AUTO) 1.7 10^3/uL (1.5-3.5); LYMPHOCYTES % (AUTO) 22.4 %; MEAN CORPUSCULAR HEMOGLOBIN 29.7 pg (27.0-31.0); MEAN CORPUSCULAR VOLUME 87.1 fL (81.0-99.0); MEAN PLATELET VOLUME 7.2 fL (7.9-10.8); MONOCYTES # (AUTO) 0.6 10^3/uL (0.0-1.0); MONOCYTES % (AUTO) 7.4 %; NEUTROPHILS # (AUTO) 5.2 10^3/uL (1.5-6.6); NEUTROPHILS % (AUTO) 68.9 %; PLT - PLATELET COUNT 242 10^3/uL (130-450); RED BLOOD COUNT 4.68 10^6/uL (4.20-5.40); RED CELL DISTRIBUTION WIDTH 12.6 % (12.0-15.0); WHITE BLOOD COUNT 7.5 x10^3/uL (4.8-10.8)
[2018-01-20 08:09] LABS: ALBUMIN 4.9 g/dL (3.2-5.5); ALBUMIN/GLOBULIN RATIO 1.8 (1.0-2.2); BILIRUBIN,TOTAL 0.5 mg/dL (0.2-1.0); CALCIUM 9.5 mg/dL (8.5-10.3); CREATININE 0.7 mg/dL (0.4-1.0); TOTAL PROTEIN 7.6 g/dL (6.7-8.2)
[2018-01-20 08:24] LABS: BILIRUBIN,URINE NEGATIVE (NEGATIVE); GLUCOSE, URINE (UA) NEGATIVE (NEGATIVE); KETONES,URINE (UA) NEGATIVE (NEGATIVE); LEUKOCYTE ESTERASE, URINE NEGATIVE (NEGATIVE); NITRITE,URINE NEGATIVE (NEGATIVE); OCCULT BLOOD,URINE NEGATIVE (NEGATIVE); PROTEIN,URINE NEGATIVE (NEGATIVE); UROBILINOGEN,URINE 0.2 (NORMAL) E.U./dL (NORMAL)
[2018-01-20 08:28] LABS: CLARITY,URINE CLEAR (CLEAR)
[2018-01-20 10:58] VITALS: BP 129/74
== END 2018-01-20 10:57 | disposition home or self-care (01) ==
LOC: ED 06:57
DX: E86.0 Dehydration (principal); M62.830 Muscle spasm of back; M54.5 Low back pain; G89.29 Other chronic pain; F32.9 Major depressive disorder, single episode, unspecified; E03.9 Hypothyroidism, unspecified
CPT/HCPCS: 36415; 80053; 81001; 81003; 83690; 85025; 87086; 99283

== ENCOUNTER 2018-01-20 14:42 | Outpatient (CLI) | payer MEDICAID | END 2018-01-20 14:43 | disposition critical access hospital (66) | LOC: EMS 14:42 | PROVIDERS: ATTEND Surgery | DX: R53.81 Other malaise (principal) | CPT/HCPCS: A0425; A0427 ==

== ENCOUNTER 2018-01-20 14:47 | Emergency (ER) | payer MEDICAID ==
[2018-01-20] MEDS ORDERED: IOPAMIDOL-300 100 ML VIAL IVP ONE ×3 (14:48→16:37)
--- NOTE | 2018-01-20 15:22 | ED Physician Documentation ---
History of Present Illness - Stated complaint Stated Complaint: RHR - Chief complaint Chief Complaint: Cardiac - History obtained from History obtained from: Patient - History of Present Illness Timing: Today - Additonal information Additional information: 62-year-old female who was seen in the emergency department earlier today for low back pain was found to be significantly dehydrated and was hydrated with 2 L of normal saline. She went home and drinks more fluids and she suddenly felt her heart race and called the ambulance. They found her with a heart rate of 121 and transported her to the hospital. The patient complains that she has had some issues with being short of breath for an extended period of time and having to spend most of her time in bed without energy. Review of Systems Constitutional: denies: Fever Eyes: denies: Decreased vision Ears: denies: Ear pain Nose: denies: Rhinorrhea / runny nose, Congestion Throat: denies: Sore throat Cardiac: reports: Chest pain / pressure. denies: Palpitations, Pedal edema, Calf pain Respiratory: reports: Dyspnea. 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 HEENT: Tonsil/Adenoidectomy - Present Medications Home Medications: Ambulatory Orders Medication Instructions Recorded Confirmed Cyclobenzaprine [Flexeril] 10 mg PO PRN PRN 12/15/14 02/01/17 Acetaminophen/Cod 300/30 [Tylenol 0.5 tab PO PRN PRN 08/04/15 02/01/17 #3] Cholecalciferol (Vitamin D3) 1,000 unit PO DAILY 10/14/16 11/01/17 [Vitamin D3] Cyanocobalamin (Vitamin B-12) 1,000 mcg PO DAILY 10/14/16 02/01/17 [Vitamin B-12] Multiple Herbs 10/14/16 Red Marine Algae 10/14/16 clonazePAM [KlonoPIN] 0.5 mg PO PRN PRN 10/14/16 11/01/17 Amitriptyline [Elavil] 10 mg ORAL PRN PRN 12/26/16 02/01/17 Digestive 8/L.acidoph/Pectin 2 each PO DAILY #60 tablet 10/07/17 [Digestive Enzymes Tablet] Ondansetron HCl [Zofran] 4 mg PO PRN PRN 11/01/17 11/01/17 - Allergies Allergies/Adverse Reactions: Allergies Allergy/AdvReac Type Severity Reaction Status Date / Time lithium [[place]] Allergy Severe swelling Verified 10/07/17 12:00 albuterol Allergy Intermediate tachycardia Verified 10/07/17 12:00 hydromorphone HCl * Allergy Mild itchy Verified 10/07/17 12:00 [From Dilaudid] - Social History Does the pt smoke?: No Smoking Status: Never smoker Does the pt drink ETOH?: No Does the pt have substance abuse?: Yes - Immunizations Immunizations are current?: Yes - POLST Patient has POLST: No PD ED PE NORMAL - Vitals Vital signs reviewed: Yes (Tachycardic and hypertensive) - General General: Alert and oriented X 3, No acute distress, Well developed/nourished - HEENT HEENT: Atraumatic, PERRL, EOMI - Neck Neck: Supple, no meningeal sign, No bony TTP - Cardiac Cardiac: RRR (Rate is 90), No murmur - Respiratory Respiratory: No respiratory distress, Clear bilaterally - Abdomen Abdomen: Soft, Non tender - Back Back: No CVA TTP, No spinal TTP - Derm Derm: Normal color, Warm and dry, No rash - Extremities Extremities: No deformity, No edema - Neuro Neuro: Alert and oriented X 3, clinical science liaison 2-12 intact, No motor deficit, No sensory deficit, Normal speech Eye Opening: Spontaneous Motor: Obeys Commands Verbal: Oriented GCS Score: 15 - Psych Psych: Normal mood, Other (affect is flat) Results - Vitals Vitals: Vital Signs - 24 hr 01/20/18 01/20/18 14:49 15:15 Temperature 36.7 C Heart Rate 114 H 107 H Respiratory 17 16 Rate Blood Pressure 152/82 H 142/72 H O2 Saturation 99 97 Oxygen O2 Source Room air - EKG (time done) 1455 Rate: Rate (enter#) (113) Rhythm: Sinus tachycardia Intervals: Prolonged QT Ischemia: ST depression (lateral leads) Compare to prior EKG: Changed from prior EKG (SPT 05-04-17 rate has increased, QT is prolonged and ST depression laterally has occurred. ) Computer interpretation: Agree with computer - Labs Labs: Laboratory Tests 01/20/18 01/20/18 01/20/18 15:35 15:35 15:35 WBC 5.6 RBC 4.66 Hgb 14.0 Hct 40.3 MCV 86.6 MCH 30.1 MCHC 34.8 RDW 12.4 Plt Count 242 MPV 7.4 L Neut # 5.2 Lymph # 0.3 L [place] # 0.0 Eos # 0.0 Baso # 0.0 Absolute Nucleated RBC 0.00 Nucleated RBC % 0.0 Sodium 138 Potassium 3.6 Chloride 105 Carbon Dioxide 19 L Anion Gap 14.0 H BUN 8 Creatinine 0.7 Estimated GFR (MDRD) 85 L Glucose 167 H Calcium 9.6 Magnesium 2.0 Total Bilirubin 0.6 AST 33 ALT 12 Alkaline Phosphatase 91 Troponin I < 0.04 B-Natriuretic Peptide Total Protein 7.7 Albumin 5.1 Globulin 2.6 Albumin/Globulin Ratio 2.0 Lipase 19 L TSH Urine Color Urine Clarity Urine pH Ur Specific [place] Urine Protein Urine Glucose (UA) Urine Ketones Urine Occult Blood Urine Nitrite Urine Bilirubin Urine Urobilinogen Ur Leukocyte Esterase Ur Microscopic Review Urine Culture Comments Ethyl Alcohol < 5.0 01/20/18 01/20/18 01/20/18 15:35 15:35 15:52 WBC RBC Hgb Hct MCV MCH MCHC RDW Plt Count MPV Neut # Lymph # [place] # Eos # Baso # Absolute Nucleated RBC Nucleated RBC % Sodium Potassium Chloride Carbon Dioxide Anion Gap BUN Creatinine Estimated GFR (MDRD) Glucose Calcium Magnesium Total Bilirubin AST ALT Alkaline Phosphatase Troponin I B-Natriuretic Peptide 53 Total Protein Albumin Globulin Albumin/Globulin Ratio Lipase TSH 0.27 L Urine Color YELLOW Urine Clarity CLEAR Urine pH 6.5 Ur Specific [place] 1.010 Urine Protein NEGATIVE Urine Glucose (UA) NEGATIVE Urine Ketones NEGATIVE Urine Occult Blood TRACE-INTA Urine Nitrite NEGATIVE Urine Bilirubin NEGATIVE Urine Urobilinogen 0.2 (NORMAL) Ur Leukocyte Esterase NEGATIVE Ur Microscopic Review NOT INDICATED Urine Culture Comments NOT INDICATED Ethyl Alcohol 01/20/18 17:14 WBC RBC Hgb Hct MCV MCH MCHC RDW Plt Count MPV Neut # Lymph # [place] # Eos # Baso # Absolute Nucleated RBC Nucleated RBC % Sodium Potassium Chloride Carbon Dioxide Anion Gap BUN Creatinine Estimated GFR (MDRD) Glucose Calcium Magnesium Total Bilirubin AST ALT Alkaline Phosphatase Troponin I < 0.04 B-Natriuretic Peptide Total Protein Albumin Globulin Albumin/Globulin Ratio Lipase TSH Urine Color Urine Clarity Urine pH Ur Specific [place] Urine Protein Urine Glucose (UA) Urine Ketones Urine Occult Blood Urine Nitrite Urine Bilirubin Urine Urobilinogen Ur Leukocyte Esterase Ur Microscopic Review Urine Culture Comments Ethyl Alcohol Procedures - IVC sono (time) 1510 Bedside IVC sono: IVC measures (cm) (1.34), IVC collapsed c insp (cm) (complete) , Dehydration (mild about 500ml deficit marked improvement from this morning.) PD MEDICAL DECISION MAKING - ED course Complexity details: reviewed old records, reviewed results, re-evaluated patient , considered differential, d/w patient ED course: 62 y/o female seen in the ED earlier today with back pain was diagnosed with dehydration and hydrated intravenously. She went home and developed some tachycardia and called the ambulance. On arrival here to the emergency department her heart rate is about 110 and does go down to about 85 on evaluation. She is reevaluated to include workup for pulmonary embolism and this is a negative study. She has no abnormalities within her chest.Troponins are negative 2 her TSH is low and a T4 is added onto her laboratories and she will follow-up with her primary care doctor for results of this. She is fixated on vitamin deficiency as a cause for not feeling well and she is taking a lot of supplements. Departure - Departure Disposition: 01 Home, Self Care Clinical Impression: Dehydration Condition: Stable Instructions: ED Dehydration Follow-Up: Summer Price DO [Primary Care Provider] - Comments: Today we did not find any additional abnormalities with the exception of a low TSH. Low TSH can indicate an elevated thyroid function and this result will be available to your primary care doctor tomorrow.
[2018-01-20 15:42] LABS: BASOPHILS % (AUTO) 0.2 %; LYMPHOCYTES # (AUTO) 0.3 10^3/uL (1.5-3.5); LYMPHOCYTES % (AUTO) 5.6 %; MEAN CORPUSCULAR HEMOGLOBIN 30.1 pg (27.0-31.0); MEAN CORPUSCULAR HGB CONC 34.8 g/dL (32.0-36.0); MEAN CORPUSCULAR VOLUME 86.6 fL (81.0-99.0); MEAN PLATELET VOLUME 7.4 fL (7.9-10.8); MONOCYTES % (AUTO) 0.4 %; NEUTROPHILS # (AUTO) 5.2 10^3/uL (1.5-6.6); NEUTROPHILS % (AUTO) 93.8 %; PLT - PLATELET COUNT 242 10^3/uL (130-450); RED BLOOD COUNT 4.66 10^6/uL (4.20-5.40); RED CELL DISTRIBUTION WIDTH 12.4 % (12.0-15.0); WHITE BLOOD COUNT 5.6 x10^3/uL (4.8-10.8)
[2018-01-20 15:58] LABS: ALBUMIN 5.1 g/dL (3.2-5.5); ALKALINE PHOSPHATASE 91 IU/L (42-121); ALT ALANINE AMINOTRANSFERASE 12 IU/L (10-60); AST ASPARTATE AMINOTRANSFERASE 33 IU/L (10-42); BILIRUBIN,TOTAL 0.6 mg/dL (0.2-1.0); BUN - BLOOD UREA NITROGEN 8 mg/dL (6-20); CALCIUM 9.6 mg/dL (8.5-10.3); CARBON DIOXIDE - CO2 19 mmol/L (21-32); CHLORIDE 105 mmol/L (101-111); CREATININE 0.7 mg/dL (0.4-1.0); GFR - MDRD 85 (>89); GLUCOSE 167 mg/dL (70-100); LIPASE 19 U/L (22-51); SODIUM 138 mmol/L (135-145); TOTAL PROTEIN 7.7 g/dL (6.7-8.2)
[2018-01-20 16:00] LABS: BILIRUBIN,URINE NEGATIVE (NEGATIVE); GLUCOSE, URINE (UA) NEGATIVE (NEGATIVE); KETONES,URINE (UA) NEGATIVE (NEGATIVE); LEUKOCYTE ESTERASE, URINE NEGATIVE (NEGATIVE); NITRITE,URINE NEGATIVE (NEGATIVE); OCCULT BLOOD,URINE TRACE-INTA (NEGATIVE); PH,URINE 6.5 PH (5.0-7.5); PROTEIN,URINE NEGATIVE (NEGATIVE); UROBILINOGEN,URINE 0.2 (NORMAL) E.U./dL (NORMAL)
[2018-01-20 16:02] LABS: CLARITY,URINE CLEAR (CLEAR)
[2018-01-20] MEDS ORDERED: IOPAMIDOL-300 100 ML VIAL ONE (16:19)
--- NOTE | 2018-01-20 16:54 | CT Preliminary Report ---
Exam: CT CHEST ANGIO (PE) IMPRESSION: 1. Negative for pulmonary embolism. 2. Clear lungs. 3. No other acute abnormality in the chest. [facility] SITE ID: [id number]
--- NOTE | 2018-01-20 16:54 | CT Report ---
EXAM: CT ANGIOGRAM CHEST EXAM DATE: 01/20/2018 04:32 PM. CLINICAL HISTORY: Shortness of air and tachycardia COMPARISON: None. TECHNIQUE: Routine helical imaging was performed through the chest in the pulmonary arterial phase. I V Contrast: 80 cc Isovue 300 IV. Reconstructions: Coronal 3-D MIP reconstructions.Sagittal and agustin l. In accordance with CT protocol optimization, one or more of the following dose reduction techniques w ere utilized for this exam: automated exposure control, adjustment of mA and/or KV based on patient s ize, or use of iterative reconstructive technique. FINDINGS: Pulmonary Arteries: Diagnostic quality: Adequate through the segmental arteries. Negative for acute pulmonary embolism. The main pulmonary artery is normal in size. Lungs/Pleura: No consolidation, nodules, or edema. No effusions or pneumothorax. Mediastinum: Normal. No cardiac enlargement or adenopathy. Thoracic Aorta: Thoracic aorta is normal in caliber. There is mild to moderate calcified plaque. Upper Abdomen: Unremarkable. Other: None. IMPRESSION: 1. Negative for pulmonary embolism. 2. Clear lungs. 3. No other acute abnormality in the chest. [facility] Referring Provider Line: [phone] SITE ID: [id number]
[2018-01-20 18:13] VITALS: BP 150/66
== END 2018-01-20 18:16 | disposition home or self-care (01) ==
LOC: EDUNIT# → ED 14:47
DX: E86.0 Dehydration (principal); M54.5 Low back pain; G89.29 Other chronic pain; M62.830 Muscle spasm of back; F32.9 Major depressive disorder, single episode, unspecified; E03.9 Hypothyroidism, unspecified; R30.0 Dysuria; R10.9 Unspecified abdominal pain
CPT/HCPCS: 36415; 71275; 80053; 80320; 81003; 83690; 83735; 83880; 84436; 84443; 84484; 85025; 93005; 96361; 96374; 99283; 99284; Q9967; 81001; 87086

== ENCOUNTER 2018-01-25 02:31 | Emergency (ER) | payer MEDICAID ==
[2018-01-25 02:40] VITALS: BP 148/81
[2018-01-25 02:51] LABS: BILIRUBIN,URINE NEGATIVE (NEGATIVE); GLUCOSE, URINE (UA) NEGATIVE (NEGATIVE); KETONES,URINE (UA) NEGATIVE (NEGATIVE); LEUKOCYTE ESTERASE, URINE NEGATIVE (NEGATIVE); NITRITE,URINE NEGATIVE (NEGATIVE); OCCULT BLOOD,URINE NEGATIVE (NEGATIVE); PH,URINE 5.5 PH (5.0-7.5); PROTEIN,URINE NEGATIVE (NEGATIVE); UROBILINOGEN,URINE 0.2 (NORMAL) E.U./dL (NORMAL)
[2018-01-25 02:52] LABS: CLARITY,URINE CLEAR (CLEAR)
--- NOTE | 2018-01-25 03:10 | ED Physician Documentation ---
PD HPI FEMALE - Stated complaint Stated Complaint: FEMALE - Chief complaint Chief Complaint: Abd Pain - History obtained from History obtained from: Patient - History of Present Illness Timing - onset: Today Timing - details: Gradual onset, Still present Associated symptoms: Pelvic pain, Dysuria Similar symptoms before: Has not had sx before Recently seen: Emergency Dept - Additional information Additional information: Patient is a 62 year old female who is presenting to the emergency department for pelvic pain and dysuria. Patient states that the pain has been going on for the last couple of days. patient reports that she thinks it started after taking dexamethasone. Review of Systems Constitutional: denies: Fever, Chills Eyes: reports: Reviewed and negative Ears: reports: Reviewed and negative Nose: reports: Reviewed and negative Throat: reports: Reviewed and negative Cardiac: reports: Reviewed and negative Respiratory: reports: Reviewed and negative GI: denies: Abdominal Pain, Nausea, Vomiting : reports: Dysuria. 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 HEENT: Tonsil/Adenoidectomy - Present Medications Home Medications: Ambulatory Orders Medication Instructions Recorded Confirmed Cyclobenzaprine [Flexeril] 10 mg PO PRN PRN 12/15/14 02/01/17 Acetaminophen/Cod 300/30 [Tylenol 0.5 tab PO PRN PRN 08/04/15 02/01/17 #3] Cholecalciferol (Vitamin D3) 1,000 unit PO DAILY 10/14/16 11/01/17 [Vitamin D3] Cyanocobalamin (Vitamin B-12) 1,000 mcg PO DAILY 10/14/16 02/01/17 [Vitamin B-12] Multiple Herbs 10/14/16 Red Marine Algae 10/14/16 clonazePAM [KlonoPIN] 0.5 mg PO PRN PRN 10/14/16 11/01/17 Amitriptyline [Elavil] 10 mg ORAL PRN PRN 12/26/16 02/01/17 Digestive 8/L.acidoph/Pectin 2 each PO DAILY #60 tablet 10/07/17 [Digestive Enzymes Tablet] Ondansetron HCl [Zofran] 4 mg PO PRN PRN 11/01/17 11/01/17 Clotrimazole [Clotrimazole AF] 1 applic TP BID #28 gm 01/25/18 - Allergies Allergies/Adverse Reactions: Allergies Allergy/AdvReac Type Severity Reaction Status Date / Time lithium [[place]] Allergy Severe swelling Verified 01/25/18 02:40 albuterol Allergy Intermediate tachycardia Verified 01/25/18 02:40 hydromorphone HCl * Allergy Mild itchy Verified 01/25/18 02:40 [From Dilaudid] - Social History Does the pt smoke?: No Smoking Status: Never smoker Does the pt drink ETOH?: No Does the pt have substance abuse?: Yes - Immunizations Immunizations are current?: Yes - POLST Patient has POLST: No PD ED PE NORMAL - Vitals Vital signs reviewed: Yes - General General: Alert and oriented X 3, No acute distress - HEENT HEENT: Atraumatic - Neck Neck: Supple, no meningeal sign - Cardiac Cardiac: RRR - Respiratory Respiratory: No respiratory distress - Abdomen Abdomen: Soft, Non tender, Non distended - Extremities Extremities: No deformity - Neuro Neuro: Alert and oriented X 3, Normal speech Eye Opening: Spontaneous PD ED PE EXPANDED - Female Female : Skin lesions (rash consistent with tinea crusis) Results - Vitals Vitals: Vital Signs - 24 hr 01/25/18 02:36 Temperature 36.9 C Heart Rate 100 Respiratory 16 Rate Blood Pressure 148/81 H O2 Saturation 98 Oxygen O2 Source Room air - Labs Labs: Laboratory Tests 01/25/18 02:45 Urine Color YELLOW Urine Clarity CLEAR Urine pH 5.5 Ur Specific [place] <=1.005 Urine Protein NEGATIVE Urine Glucose (UA) NEGATIVE Urine Ketones NEGATIVE Urine Occult Blood NEGATIVE Urine Nitrite NEGATIVE Urine Bilirubin NEGATIVE Urine Urobilinogen 0.2 (NORMAL) Ur Leukocyte Esterase NEGATIVE Ur Microscopic Review NOT INDICATED Urine Culture Comments NOT INDICATED PD MEDICAL DECISION MAKING - ED course Complexity details: reviewed old records, reviewed results, re-evaluated patient , considered differential, d/w patient ED course: patient was seen and examined at bedside. urine was collected and sent. physical exam revealed tinea crusis. Patient's urinalysis was unremarkable. prescriptions were written and patient was stable for discharge with outpatient follow up. Departure - Departure Disposition: 01 Home, Self Care Clinical Impression: Tinea cruris Condition: Good Instructions: ED Tinea Cruris General Follow-Up: Summer Price DO [Primary Care Provider] - As Needed Prescriptions: Clotrimazole [Clotrimazole AF] 1 applic TP BID #28 gm Comments: Your symptoms today are being caused by a fungal infection. You will need to apply the cream twice a day until your rash clears. You should follow up with your doctor for further care. You may return to the emergency department at any time for new, worsening or uncontrollable symptoms.
== END 2018-01-25 03:22 | disposition home or self-care (01) ==
LOC: ED 02:31
DX: B35.6 Tinea cruris (principal); E03.9 Hypothyroidism, unspecified
CPT/HCPCS: 81001; 81003; 87086; 99283

== ENCOUNTER 2018-01-26 14:05 | Outpatient (CLI) | payer MEDICAID ==
--- NOTE | 2018-01-26 15:38 | XRAY Report ---
THREE VIEW LUMBAR SPINE: 01/26/2018 CLINICAL INDICATION: Low back pain. FINDINGS: AP, lateral, coned down views of the lumbar spine demonstrate mild degenerative disk and facet disease. There is no evidence of fracture or subluxation. The bowel gas pattern is normal. IMPRESSION: MILD DEGENERATIVE CHANGES. TD: 01/26/2018 15:36
== END 2018-01-26 14:06 | disposition home or self-care (01) ==
LOC: DI 14:05
PROVIDERS: ATTEND Family Medicine
DX: M51.36 Other intervertebral disc degeneration, lumbar region (principal); M47.896 Other spondylosis, lumbar region
CPT/HCPCS: 72100

== ENCOUNTER 2018-03-17 07:09 | Outpatient (CLI) | payer MEDICAID ==
[2018-03-17 07:51] LABS: BILIRUBIN,URINE NEGATIVE (NEGATIVE); GLUCOSE, URINE (UA) NEGATIVE (NEGATIVE); KETONES,URINE (UA) NEGATIVE (NEGATIVE); LEUKOCYTE ESTERASE, URINE NEGATIVE (NEGATIVE); NITRITE,URINE NEGATIVE (NEGATIVE); OCCULT BLOOD,URINE NEGATIVE (NEGATIVE); PROTEIN,URINE NEGATIVE (NEGATIVE); UROBILINOGEN,URINE 0.2 (NORMAL) E.U./dL (NORMAL)
[2018-03-17 07:58] LABS: BACTERIA,URINE Rare /HPF (None Seen); CLARITY,URINE CLEAR (CLEAR); RBC,URINE 0-5 /HPF (0-5); SQUAMOUS EPITHELIAL CELL,UR RARE Squamous (<= Few)
[2018-03-18 12:12] LABS: HOMOCYSTEINE 7.7 umol/L (<10.4)
== END 2018-03-17 07:10 | disposition home or self-care (01) ==
LOC: LAB 07:09
PROVIDERS: ATTEND Family Medicine
DX: F41.9 Anxiety disorder, unspecified (principal); E03.9 Hypothyroidism, unspecified; E53.8 Deficiency of other specified B group vitamins; M81.8 Other osteoporosis without current pathological fracture
CPT/HCPCS: 36415; 81001; 82306; 82728; 83090; 83921

== ENCOUNTER 2018-04-01 18:25 | Emergency (ER) | payer MEDICAID ==
--- NOTE | 2018-04-01 19:01 | XRAY Report ---
EXAM: CHEST RADIOGRAPHY EXAM DATE: 04/01/2018 06:50 PM. CLINICAL HISTORY: Shortness of breath COMPARISON: 05/04/2017 chest x-ray. TECHNIQUE: 2 views. FINDINGS: Lungs/Pleura: No focal opacities evident. No pleural effusion. No pneumothorax. Normal volumes. Mediastinum: Heart and mediastinal contours are unremarkable. Other: None. IMPRESSION: Normal 2-view chest radiography. [facility] Referring Provider Line: [phone] SITE ID: [id number]
--- NOTE | 2018-04-01 19:39 | ED Physician Documentation ---
PD HPI DYSPNEA - Stated complaint Stated Complaint: SOA - Chief complaint Chief Complaint: Resp - History obtained from History obtained from: Patient - History of Present Illness Timing - onset: How many days ago (several days) Timing - onset during: Light activity (she is feeling short of breath both at rest and with activity. No chest pain. No orthopnea.) Timing - duration: Days Timing - details: Gradual onset, Still present Inciting event(s): No: Out of meds, URI Improved by: Rest Worsened by: Exertion Associated symptoms: No: Fever, Cough, Wheezing, Chest pain / discomfort, Palpitations, Bilateral edema Similar symptoms before: No diagnosis (normal heart tests in the past, but was about 7 years ago (ECHO, Stress test).) Review of Systems Constitutional: denies: Fever, Chills Nose: denies: Rhinorrhea / runny nose, Congestion Throat: denies: Sore throat Respiratory: denies: Cough GI: denies: Abdominal Pain, Nausea, Vomiting, Diarrhea Skin: denies: Rash, Lesions PD PAST MEDICAL HISTORY - Past Medical History Cardiovascular: None Respiratory: None Endocrine/Autoimmune: HyPOthyroidism GI: Hiatal hernia 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 : None HEENT: Other Psych: Anxiety Musculoskeletal: None Derm: None - Past Surgical History Past Surgical History: Yes General: Hiatal hernia repair /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 SCIENCES PROFESSOR: Breast reduction HEENT: Tonsil/Adenoidectomy - Present Medications Home Medications: Ambulatory Orders Medication Instructions Recorded Confirmed Cyclobenzaprine [Flexeril] 10 mg PO PRN PRN 12/15/14 02/01/17 Acetaminophen/Cod 300/30 [Tylenol 0.5 tab PO PRN PRN 08/04/15 02/01/17 #3] Cholecalciferol (Vitamin D3) 1,000 unit PO DAILY 10/14/16 11/01/17 [Vitamin D3] Cyanocobalamin (Vitamin B-12) 1,000 mcg PO DAILY 10/14/16 02/01/17 [Vitamin B-12] Multiple Herbs 10/14/16 Red Marine Algae 10/14/16 clonazePAM [KlonoPIN] 0.5 mg PO PRN PRN 10/14/16 11/01/17 Amitriptyline [Elavil] 10 mg ORAL PRN PRN 12/26/16 02/01/17 Digestive 8/L.acidoph/Pectin 2 each PO DAILY #60 tablet 11/30/17 [Digestive Enzymes Tablet] Ondansetron HCl [Zofran] 4 mg PO PRN PRN 11/01/17 11/01/17 Clotrimazole [Clotrimazole AF] 1 applic TP BID #28 gm 01/25/18 - Allergies Allergies/Adverse Reactions: Allergies Allergy/AdvReac Type Severity Reaction Status Date / Time lithium [[place]] Allergy Severe swelling Verified 01/25/18 02:40 albuterol Allergy Intermediate tachycardia Verified 01/25/18 02:40 hydromorphone HCl * Allergy Mild itchy Verified 01/25/18 02:40 [From Dilaudid] - Social History Does the pt smoke?: No Smoking Status: Never smoker Does the pt drink ETOH?: No Does the pt have substance abuse?: Yes - Immunizations Immunizations are current?: Yes - POLST Patient has POLST: No PD ED PE NORMAL - Vitals Vital signs reviewed: Yes - General General: Alert and oriented X 3, Well developed/nourished - HEENT HEENT: Ears normal, Pharynx benign - Neck Neck: Supple, no meningeal sign, No adenopathy - Cardiac Cardiac: RRR, No murmur - Respiratory Respiratory: No: Clear bilaterally (with just slight wheezing diffusely) - Abdomen Abdomen: Soft, Non tender Results - Vitals Vitals: Vital Signs - 24 hr 04/01/18 04/01/18 18:30 21:22 Temperature 36.9 C Heart Rate 82 61 Respiratory 16 13 Rate Blood Pressure 144/58 H 138/78 H O2 Saturation 96 98 Oxygen O2 Source Room air - EKG (time done) 18:40 Rate: Rate (enter#) (68) Rhythm: NSR [place]: Normal Intervals: Normal [place] QRS: Normal Ischemia: Normal ST segments. No: ST elevation c/w ischemia, ST depression - Labs Labs: Laboratory Tests 04/01/18 04/01/18 04/01/18 19:40 19:40 19:40 WBC 5.4 RBC 4.10 L Hgb 12.2 Hct 36.1 L MCV 88.1 MCH 29.7 MCHC 33.8 RDW 12.4 Plt Count 239 MPV 7.2 L Neut # 2.7 Lymph # 2.0 [place] # 0.6 Eos # 0.1 Baso # 0.0 Absolute Nucleated RBC 0.00 Nucleated RBC % 0.0 Sodium 138 Potassium 4.1 Chloride 103 Carbon Dioxide 29 Anion Gap 6.0 BUN 15 Creatinine 0.6 Estimated GFR (MDRD) 101 Glucose 92 Calcium 9.2 Total Bilirubin 0.6 AST 16 ALT 12 Alkaline Phosphatase 84 Troponin I < 0.04 Total Protein 6.5 L Albumin 4.3 Globulin 2.2 Albumin/Globulin Ratio 2.0 Lipase 29 - Rads (name of study) chest Radiology: Prelim report reviewed, EMP read contemporaneously (no acute infiltrates. ) PD MEDICAL DECISION MAKING - ED course Complexity details: reviewed results (no suggestion of [place],CAD, CHF by labs and CXR and exam. Seems pulmonary. ), considered differential (she says MDI/nebs make her too jittery, and steroids "shot yeast through my body immediately" and she got "jock itch" and other yeast infections. I asked how we can help her, and she said she mainly wnated to ensure "it is not my heart". ), d/w patient Departure - Departure Disposition: 01 Home, Self Care Clinical Impression: Dyspnea Qualifiers: Dyspnea type: dyspnea on exertion Qualified Code(s): R06.09 - Other forms of dyspnea Condition: Stable Record reviewed to determine appropriate education?: Yes Instructions: ED Dyspnea Shortness of Breath Follow-Up: Summer Price DO [Primary Care Provider] - Comments: Your shortness of breath is more likely lung related and can be from airway irritation from allergies or smoking. There is no signs of heart failure or heart attack at this time. If you did not have the sensitivities to the medicine, an inhaler or steroids may be helpful but not if they make it feel worse. Continue usual medications. Follow-up with the hoop puncher as you have planned. Discharge Date/Time: 04/01/18 21:30
[2018-04-01 19:45] LABS: BASOPHILS % (AUTO) 0.8 %; EOSINOPHILS # (AUTO) 0.1 10^3/uL (0.0-0.7); EOSINOPHILS % (AUTO) 1.4 %; HGB - HEMOGLOBIN 12.2 g/dL (12.0-16.0); LYMPHOCYTES % (AUTO) 37.2 %; MEAN CORPUSCULAR HEMOGLOBIN 29.7 pg (27.0-31.0); MEAN CORPUSCULAR HGB CONC 33.8 g/dL (32.0-36.0); MEAN CORPUSCULAR VOLUME 88.1 fL (81.0-99.0); MEAN PLATELET VOLUME 7.2 fL (7.9-10.8); MONOCYTES # (AUTO) 0.6 10^3/uL (0.0-1.0); MONOCYTES % (AUTO) 10.6 %; NEUTROPHILS # (AUTO) 2.7 10^3/uL (1.5-6.6); PLT - PLATELET COUNT 239 10^3/uL (130-450); RED CELL DISTRIBUTION WIDTH 12.4 % (12.0-15.0); WHITE BLOOD COUNT 5.4 x10^3/uL (4.8-10.8)
[2018-04-01 20:07] LABS: ALBUMIN 4.3 g/dL (3.2-5.5); BILIRUBIN,TOTAL 0.6 mg/dL (0.2-1.0); CREATININE 0.6 mg/dL (0.4-1.0); TOTAL PROTEIN 6.5 g/dL (6.7-8.2)
[2018-04-01 20:18] LABS: CALCIUM 9.2 mg/dL (8.5-10.3)
[2018-04-01 21:23] VITALS: BP 138/78
== END 2018-04-01 21:30 | disposition home or self-care (01) ==
LOC: ED 18:25
DX: R06.02 Shortness of breath (principal)
CPT/HCPCS: 36415; 71046; 80053; 83690; 84484; 85025; 93005; 99282; 99284

== ENCOUNTER 2018-04-12 17:50 | Emergency (ER) | payer MEDICAID ==
[2018-04-12 18:11] VITALS: BP 175/66
[2018-04-12 18:48] LABS: BASOPHILS % (AUTO) 0.6 %; EOSINOPHILS % (AUTO) 0.4 %; LYMPHOCYTES # (AUTO) 2.2 10^3/uL (1.5-3.5); LYMPHOCYTES % (AUTO) 28.9 %; MEAN CORPUSCULAR HGB CONC 34.6 g/dL (32.0-36.0); MEAN CORPUSCULAR VOLUME 86.7 fL (81.0-99.0); MEAN PLATELET VOLUME 7.1 fL (7.9-10.8); MONOCYTES # (AUTO) 0.5 10^3/uL (0.0-1.0); MONOCYTES % (AUTO) 6.8 %; NEUTROPHILS # (AUTO) 4.7 10^3/uL (1.5-6.6); NEUTROPHILS % (AUTO) 63.3 %; PLT - PLATELET COUNT 239 10^3/uL (130-450); RED BLOOD COUNT 4.35 10^6/uL (4.20-5.40); RED CELL DISTRIBUTION WIDTH 12.5 % (12.0-15.0); WHITE BLOOD COUNT 7.5 x10^3/uL (4.8-10.8)
[2018-04-12 19:12] LABS: ALBUMIN 4.8 g/dL (3.2-5.5); ALBUMIN/GLOBULIN RATIO 1.9 (1.0-2.2); BILIRUBIN,TOTAL 0.5 mg/dL (0.2-1.0); CALCIUM 9.4 mg/dL (8.5-10.3); CREATININE 0.6 mg/dL (0.4-1.0); TOTAL PROTEIN 7.3 g/dL (6.7-8.2)
== END 2018-04-12 19:59 | disposition left against medical advice (07) ==
LOC: ED 17:50
DX: Z53.21 Procedure and treatment not carried out due to patient leaving prior to being seen by health care provider (principal)
CPT/HCPCS: 36415; 80053; 83690; 85025

== ENCOUNTER 2018-04-13 06:05 | Emergency (ER) | payer MEDICAID ==
[2018-04-13 06:31] LABS: BASOPHILS # (AUTO) 0.1 10^3/uL (0.0-0.1); BASOPHILS % (AUTO) 0.7 %; EOSINOPHILS % (AUTO) 0.5 %; HGB - HEMOGLOBIN 13.8 g/dL (12.0-16.0); LYMPHOCYTES # (AUTO) 2.5 10^3/uL (1.5-3.5); LYMPHOCYTES % (AUTO) 33.7 %; MEAN CORPUSCULAR HEMOGLOBIN 29.6 pg (27.0-31.0); MEAN CORPUSCULAR HGB CONC 34.2 g/dL (32.0-36.0); MEAN CORPUSCULAR VOLUME 86.7 fL (81.0-99.0); MEAN PLATELET VOLUME 7.5 fL (7.9-10.8); MONOCYTES # (AUTO) 0.7 10^3/uL (0.0-1.0); MONOCYTES % (AUTO) 9.2 %; NEUTROPHILS # (AUTO) 4.2 10^3/uL (1.5-6.6); NEUTROPHILS % (AUTO) 55.9 %; PLT - PLATELET COUNT 272 10^3/uL (130-450); RED BLOOD COUNT 4.64 10^6/uL (4.20-5.40); RED CELL DISTRIBUTION WIDTH 12.5 % (12.0-15.0); WHITE BLOOD COUNT 7.4 x10^3/uL (4.8-10.8)
[2018-04-13 06:42] LABS: ALBUMIN/GLOBULIN RATIO 1.9 (1.0-2.2); CALCIUM 9.4 mg/dL (8.5-10.3); CREATININE 0.6 mg/dL (0.4-1.0); TOTAL PROTEIN 7.6 g/dL (6.7-8.2)
[2018-04-13 06:43] LABS: BILIRUBIN,URINE NEGATIVE (NEGATIVE); GLUCOSE, URINE (UA) NEGATIVE (NEGATIVE); KETONES,URINE (UA) NEGATIVE (NEGATIVE); LEUKOCYTE ESTERASE, URINE NEGATIVE (NEGATIVE); NITRITE,URINE NEGATIVE (NEGATIVE); OCCULT BLOOD,URINE SMALL (NEGATIVE); PH,URINE 5.5 PH (5.0-7.5); PROTEIN,URINE NEGATIVE (NEGATIVE); UROBILINOGEN,URINE 0.2 (NORMAL) E.U./dL (NORMAL)
[2018-04-13 06:50] LABS: CLARITY,URINE CLEAR (CLEAR)
[2018-04-13 06:51] LABS: BACTERIA,URINE Rare /HPF (None Seen); MUCUS,URINE Moderate Strands; RBC,URINE 0-5 /HPF (0-5); SQUAMOUS EPITHELIAL CELL,UR FEW Squamous (<= Few)
[2018-04-13] MEDS ORDERED: MAG HYDROX/AL HYDROX/SIMETH 30 ML UDC PO STA (07:46)
[2018-04-13] MEDS ORDERED: LIDOCAINE VISCOUS 2% 15 ML UDC MM STA (07:46)
--- NOTE | 2018-04-13 08:25 | ED Physician Documentation ---
PD HPI ABD PAIN - Stated complaint Stated Complaint: ABDOMINAL PAIN - Chief complaint Chief Complaint: Abd Pain - History obtained from History obtained from: Patient - History of Present Illness Timing - onset: How many years ago (2) Timing - duration: Years (2) Timing - details: Gradual onset, Still present, Waxing and waning Quality: Sharp, Pain Location: LUQ Improved by: Other (nothing) Worsened by: Eating Associated symptoms: Nausea, Vomiting, Near syncope / syncope, Loss of appetite Similar symptoms before: No diagnosis Recently seen: Clinic - Additional information Additional information: 63-year-old female with a long history of intestinal symptoms complains of left upper quadrant pain that is worse when she tries to eat or drink anything. 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 She has found the food that she is eating is making her feel discomfort in the left upper quadrant and she developes some nausea and gas. Review of Systems Constitutional: denies: Fever Eyes: denies: Decreased vision Ears: denies: Ear pain Nose: denies: Rhinorrhea / runny nose, Congestion Throat: denies: Sore throat Cardiac: denies: Chest pain / pressure, Palpitations Respiratory: reports: Dyspnea. denies: Cough GI: reports: Abdominal Pain, Nausea, Constipation, Diarrhea : denies: Dysuria, Frequency Skin: denies: Rash Musculoskeletal: denies: Neck pain Neurologic: reports: Generalized weakness. 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 : None HEENT: Other Psych: Anxiety Musculoskeletal: None Derm: None - Past Surgical History Past Surgical History: Yes General: Hiatal hernia repair /FASHION COORDINATOR: Breast reduction HEENT: Tonsil/Adenoidectomy - Present Medications Home Medications: Ambulatory Orders Medication Instructions Recorded Confirmed Cyclobenzaprine [Flexeril] 10 mg PO PRN PRN 12/15/14 02/01/17 Acetaminophen/Cod 300/30 [Tylenol 0.5 tab PO PRN PRN 08/04/15 02/01/17 #3] Cholecalciferol (Vitamin D3) 1,000 unit PO DAILY 10/14/16 11/01/17 [Vitamin D3] Cyanocobalamin (Vitamin B-12) 1,000 mcg PO DAILY 10/14/16 02/01/17 [Vitamin B-12] Multiple Herbs 10/14/16 Red Marine Algae 10/14/16 clonazePAM [KlonoPIN] 0.5 mg PO PRN PRN 10/14/16 11/01/17 Amitriptyline [Elavil] 10 mg ORAL PRN PRN 12/26/16 02/01/17 Digestive 8/L.acidoph/Pectin 2 each PO DAILY #60 tablet 10/07/17 [Digestive Enzymes Tablet] Ondansetron HCl [Zofran] 4 mg PO PRN PRN 11/01/17 11/01/17 Clotrimazole [Clotrimazole AF] 1 applic TP BID #28 gm 01/25/18 Sucralfate [Carafate] 1 gm PO ACHS #30 tablet 04/13/18 - Allergies Allergies/Adverse Reactions: Allergies Allergy/AdvReac Type Severity Reaction Status Date / Time lithium [[place]] Allergy Severe swelling Verified 04/13/18 06:21 albuterol Allergy Intermediate tachycardia Verified 04/13/18 06:21 hydromorphone HCl * Allergy Mild itchy Verified 04/13/18 06:21 [From Dilaudid] - Social History Does the pt smoke?: No Smoking Status: Never smoker Does the pt drink ETOH?: No Does the pt have substance abuse?: Yes - Immunizations Immunizations are current?: Yes - POLST Patient has POLST: No PD ED PE NORMAL - Vitals Vital signs reviewed: Yes (tachy and hypertensive ) - General General: Alert and oriented X 3, No acute distress, Well developed/nourished - HEENT HEENT: Atraumatic, PERRL, EOMI - Neck Neck: Supple, no meningeal sign - Cardiac Cardiac: No murmur, Other (tachy to 100) - Respiratory Respiratory: No respiratory distress, Clear bilaterally - Abdomen Abdomen: Soft, Other (minimal tenderness to the LUQ) - Back Back: No CVA TTP, No spinal TTP - Derm Derm: Normal color, Warm and dry, No rash - Extremities Extremities: No deformity, No edema - Neuro Neuro: No motor deficit, No sensory deficit Eye Opening: Spontaneous Motor: Obeys Commands Verbal: Oriented GCS Score: 15 - Psych Psych: Other (mood is defeated and the affect is flat. ) Results - Vitals Vitals: Vital Signs - 24 hr 04/13/18 06:12 Temperature 36.9 C Heart Rate 122 H Respiratory 22 Rate Blood Pressure 154/92 H O2 Saturation 99 Oxygen O2 Source Room air - Labs Labs: Laboratory Tests 04/13/1818 18 06:18 06:18 06:28 WBC 7.4 RBC 4.64 Hgb 13.8 Hct 40.3 MCV 86.7 MCH 29.6 MCHC 34.2 RDW 12.5 Plt Count 272 MPV 7.5 L Neut # (Auto) 4.2 Lymph # (Auto) 2.5 [place] # (Auto) 0.7 Eos # (Auto) 0.0 Baso # (Auto) 0.1 Absolute Nucleated RBC 0.01 Nucleated RBC % 0.1 Sodium 137 Potassium 3.1 L Chloride 102 Carbon Dioxide 24 Anion Gap 11.0 BUN 10 Creatinine 0.6 Estimated GFR (MDRD) 101 Glucose 122 H Calcium 9.4 Total Bilirubin 1.0 AST 23 ALT 12 Alkaline Phosphatase 93 Total Protein 7.6 Albumin 5.0 Globulin 2.6 Albumin/Globulin Ratio 1.9 Lipase 36 Urine Color YELLOW Urine Clarity CLEAR Urine pH 5.5 Ur Specific [place] 1.015 Urine Protein NEGATIVE Urine Glucose (UA) NEGATIVE Urine Ketones NEGATIVE Urine Occult Blood SMALL H Urine Nitrite NEGATIVE Urine Bilirubin NEGATIVE Urine Urobilinogen 0.2 (NORMAL) Ur Leukocyte Esterase NEGATIVE Urine RBC 0-5 Urine WBC 0-3 Ur Squamous Epith Cells FEW Squamous Urine Bacteria Rare Urine Mucus Moderate Strands Ur Microscopic Review INDICATED Urine Culture Comments NOT INDICATED Procedures - IVC sono (time) 0810 Bedside IVC sono: IVC measures (cm) (1.34), IVC collapsed c insp (cm) (complete) , Dehydration (mild est <1 liter deficit) PD MEDICAL DECISION MAKING - ED course Complexity details: reviewed old records, reviewed results, re-evaluated patient , considered differential, d/w patient ED course: 63-year-old female with chronic complaints of abdominal malabsorption and left upper quadrant pain by history likely has a gastritis. She was able to ingest viscous lidocaine and Mylanta with some improvement in her pain. She has not been able to follow through with upper GI that she has had scheduled twice previously. This is likely the only interrogation of the patient's stomach and we will be able to get and I have discussed with her treatment of gastritis as a short course of a H2 bernardino and avoidance of proton pump inhibitor as well as 1 week of Carafate. She has a regular physician to follow-up with her list of chronic complaints. Departure - Departure Disposition: 01 Home, Self Care Clinical Impression: Dehydration Gastritis Qualifiers: Gastritis type: unspecified gastritis Chronicity: chronic Gastritis bleeding: without bleeding Qualified Code(s): K29.50 - Unspecified chronic gastritis without bleeding Condition: Stable Instructions: ED Dehydration, ED Gastritis Follow-Up: Summer Price DO [Primary Care Provider] - Prescriptions: Sucralfate [Carafate] 1 gm PO ACHS #30 tablet Comments: Today it appears that there is inflammation in the lining of your stomach. I recommend that you take Pepcid daily for at least 1 week. In addition take the Carafate as prescribed before meals and at bedtime. Allow the tablet to dissolve on your tongue befor swallowing.
[2018-04-13 09:05] VITALS: BP 153/87
== END 2018-04-13 09:03 | disposition home or self-care (01) ==
LOC: ED 06:05
DX: K29.50 Unspecified chronic gastritis without bleeding (principal); E86.0 Dehydration; E03.9 Hypothyroidism, unspecified
CPT/HCPCS: 36415; 80053; 81001; 83690; 85025; 99283; 99284; A9270; 81003; 87086

== ENCOUNTER 2018-05-27 07:28 | Outpatient (CLI) | payer MEDICAID ==
[2018-05-27 08:59] LABS: % IRON SATURATION 23 % (20-50); BUN - BLOOD UREA NITROGEN 10 mg/dL (6-20); CALCIUM 9.1 mg/dL (8.5-10.3); CARBON DIOXIDE - CO2 28 mmol/L (21-32); CHLORIDE 102 mmol/L (101-111); CREATININE 0.6 mg/dL (0.4-1.0); GFR - MDRD 101 (>89); GLUCOSE 106 mg/dL (70-100); IRON 82 ug/dL (28-170); SODIUM 138 mmol/L (135-145); TOTAL IRON BINDING CAPACITY 353 ug/dL (250-450); TRANSFERRIN 252 mg/dL (192-382)
[2018-05-27 09:13] LABS: THYROID STIMULATING HORMONE 0.73 uIU/mL (0.34-5.60)
[2018-05-27 09:19] LABS: FERRITIN 61.2 ng/mL (11.0-306.8)
== END 2018-05-27 07:29 | disposition home or self-care (01) ==
LOC: LAB 07:28
PROVIDERS: ATTEND Family Medicine
DX: E61.1 Iron deficiency (principal); E55.9 Vitamin D deficiency, unspecified; F32.9 Major depressive disorder, single episode, unspecified; E03.9 Hypothyroidism, unspecified; E53.8 Deficiency of other specified B group vitamins
CPT/HCPCS: 36415; 80048; 82306; 82728; 82747; 83540; 84443; 84466

== ENCOUNTER 2018-08-21 04:13 | Emergency (ER) | payer MEDICAID ==
[2018-08-21] MEDS ORDERED: SODIUM CHLORIDE 0.9% 1,000 ML IV ONE (05:00)
[2018-08-21] MEDS ORDERED: FAMOTIDINE 20 MG/50 ML 50 ML IV ONE (05:00)
[2018-08-21 05:43] LABS: EOSINOPHILS # (AUTO) 0.1 10^3/uL (0.0-0.7); MONOCYTES # (AUTO) 0.4 10^3/uL (0.0-1.0); NEUTROPHILS # (AUTO) 3.1 10^3/uL (1.5-6.6); WHITE BLOOD COUNT 5.3 x10^3/uL (4.8-10.8)
[2018-08-21 05:48] LABS: BASOPHILS % (AUTO) 0.7 %; EOSINOPHILS % (AUTO) 0.9 %; HGB - HEMOGLOBIN 13.9 g/dL (12.0-16.0); LYMPHOCYTES # (AUTO) 1.7 10^3/uL (1.5-3.5); LYMPHOCYTES % (AUTO) 31.6 %; MEAN CORPUSCULAR HEMOGLOBIN 30.2 pg (27.0-31.0); MEAN CORPUSCULAR HGB CONC 35.1 g/dL (32.0-36.0); MEAN CORPUSCULAR VOLUME 86.2 fL (81.0-99.0); MEAN PLATELET VOLUME 7.3 fL (7.9-10.8); NEUTROPHILS % (AUTO) 58.8 %; PLT - PLATELET COUNT 274 10^3/uL (130-450); RED BLOOD COUNT 4.59 10^6/uL (4.20-5.40); RED CELL DISTRIBUTION WIDTH 12.6 % (12.0-15.0)
[2018-08-21 05:57] LABS: BILIRUBIN,URINE NEGATIVE (NEGATIVE); GLUCOSE, URINE (UA) NEGATIVE (NEGATIVE); KETONES,URINE (UA) NEGATIVE (NEGATIVE); LEUKOCYTE ESTERASE, URINE NEGATIVE (NEGATIVE); NITRITE,URINE NEGATIVE (NEGATIVE); OCCULT BLOOD,URINE TRACE-LYSE (NEGATIVE); PROTEIN,URINE NEGATIVE (NEGATIVE); UROBILINOGEN,URINE 0.2 (NORMAL) E.U./dL (NORMAL)
[2018-08-21 05:58] LABS: CLARITY,URINE CLEAR (CLEAR)
[2018-08-21 05:58] LABS: ALBUMIN 4.6 g/dL (3.2-5.5); ALBUMIN/GLOBULIN RATIO 1.9 (1.0-2.2); CALCIUM 9.3 mg/dL (8.5-10.3); CREATININE 0.7 mg/dL (0.4-1.0)
--- NOTE | 2018-08-21 06:17 | ED Physician Documentation ---
PD HPI ABD PAIN - Stated complaint Stated Complaint: ABD PAIN - Chief complaint Chief Complaint: Abd Pain - History obtained from History obtained from: Patient - History of Present Illness Timing - onset: How many years ago (2+) Timing - duration: Years Timing - details: Gradual onset, Still present, Waxing and waning Quality: Sharp, Pain Location: LUQ Improved by: Other (nothing) Worsened by: Eating, Position, Palpation Associated symptoms: Nausea, Loss of appetite. No: Fever, Vomiting Similar symptoms before: Diagnosis (gastritis) Recently seen: Clinic - Additional information Additional information: 63-year-old female complains of a chronic left upper quadrant abdominal pain that sometimes limits what she can eat and is keeping her awake at night. She states that she has been awake all night with this pain in her left upper quadrant. She was able to eat only once yesterday. She states she has been hydrating with herbal teas. She takes a number of herbal preparations and is averse to taking prescribed medications. She sees a natural path as well as her primary care doctor. The patient indicates that she has had an endoscopy with a capsule and she has not had follow-up from that. She has not had endoscopy of her stomach. She relates that she feels she has some malabsorption issues and requires extra vitamins for replacement. She brings a bag with her containing a number of supplements. She was seen here in April of this year with similar symptoms at that time she had improvement with use of a GI cocktail and it was recommended she take both Carafate and Pepcid at that time. She did not take either of these medications. Review of Systems Constitutional: reports: Sweats. denies: Fever Eyes: denies: Decreased vision Ears: denies: Ear pain Nose: denies: Congestion Throat: denies: Sore throat Cardiac: denies: Chest pain / pressure, Palpitations Respiratory: denies: Dyspnea, Cough GI: reports: Abdominal Pain, Nausea. denies: Vomiting : denies: Dysuria, Frequency Skin: denies: Rash Musculoskeletal: denies: Neck pain, Back pain, Extremity pain Neurologic: reports: Generalized weakness. denies: Focal weakness, Numbness PD PAST MEDICAL HISTORY - Past Medical History Cardiovascular: None Respiratory: None Endocrine/Autoimmune: HyPOthyroidism GI: Hiatal hernia RN IV THERAPY: None : None HEENT: Other Psych: Anxiety Musculoskeletal: None Derm: None - Past Surgical History Past Surgical History: Yes General: Hiatal hernia repair /RN IV THERAPY: Breast reduction HEENT: Tonsil/Adenoidectomy - Present Medications Home Medications: Ambulatory Orders Medication Instructions Recorded Confirmed Cyclobenzaprine [Flexeril] 10 mg PO PRN PRN 12/15/14 02/01/17 Acetaminophen/Cod 300/30 [Tylenol 0.5 tab PO PRN PRN 08/04/15 02/01/17 #3] Cholecalciferol (Vitamin D3) 1,000 unit PO DAILY 10/14/16 11/01/17 [Vitamin D3] Cyanocobalamin (Vitamin B-12) 1,000 mcg PO DAILY 10/14/16 02/01/17 [Vitamin B-12] Multiple Herbs 10/14/16 Red Marine Algae 10/14/16 clonazePAM [KlonoPIN] 0.5 mg PO PRN PRN 10/14/16 11/01/17 Amitriptyline [Elavil] 10 mg ORAL PRN PRN 12/26/16 02/01/17 Digestive 8/L.acidoph/Pectin 2 each PO DAILY #60 tablet 10/07/17 [Digestive Enzymes Tablet] Ondansetron HCl [Zofran] 4 mg PO PRN PRN 11/01/17 11/01/17 Clotrimazole [Clotrimazole AF] 1 applic TP BID #28 gm 01/25/18 Sucralfate [Carafate] 1 gm PO ACHS #30 tablet 04/13/18 Sucralfate [Carafate] 1 gm PO ACHS #30 tablet 08/21/18 - Allergies Allergies/Adverse Reactions: Allergies Allergy/AdvReac Type Severity Reaction Status Date / Time lithium [[place]] Allergy Severe swelling Verified 08/21/18 04:21 albuterol Allergy Intermediate tachycardia Verified 08/21/18 04:21 hydromorphone HCl * Allergy Mild itchy Verified 08/21/18 04:21 [From Dilaudid] - Social History Does the pt smoke?: No Smoking Status: Never smoker Does the pt drink ETOH?: No Does the pt have substance abuse?: Yes - Immunizations Immunizations are current?: Yes - POLST Patient has POLST: No PD ED PE NORMAL - Vitals Vital signs reviewed: Yes (tachycardic and hypertensive) - General General: Alert and oriented X 3, No acute distress, Well developed/nourished - HEENT HEENT: Atraumatic, PERRL, EOMI - Neck Neck: Supple, no meningeal sign, No bony TTP - Cardiac Cardiac: RRR, No murmur - Respiratory Respiratory: No respiratory distress, Clear bilaterally - Abdomen Abdomen: Soft, Other (mild left upper quadrant tenderness) - Back Back: No CVA TTP, No spinal TTP - Derm Derm: Normal color, Warm and dry, No rash - Extremities Extremities: No deformity, No edema - Neuro Neuro: Alert and oriented X 3, treatment coordinator 2-12 intact, No motor deficit, No sensory deficit, Normal speech Eye Opening: Spontaneous Motor: Obeys Commands Verbal: Oriented GCS Score: 15 - Psych Psych: Normal mood, Normal affect Results - Vitals Vitals: Vital Signs - 24 hr 08/21/18 08/21/18 04:17 06:18 Temperature 36.6 C Heart Rate 139 H 88 Respiratory 20 16 Rate Blood Pressure 177/88 H 133/78 H O2 Saturation 99 98 Oxygen O2 Source Room air - Labs Labs: Laboratory Tests 08/21/18 08/21/18 08/21/18 05:20 05:20 05:20 WBC 5.3 RBC 4.59 Hgb 13.9 Hct 39.6 MCV 86.2 MCH 30.2 MCHC 35.1 RDW 12.6 Plt Count 274 MPV 7.3 L Neut # (Auto) 3.1 Lymph # (Auto) 1.7 [place] # (Auto) 0.4 Eos # (Auto) 0.1 Baso # (Auto) 0.0 Absolute Nucleated RBC 0.01 Nucleated RBC % 0.1 Sodium 139 Potassium 3.6 Chloride 103 Carbon Dioxide 23 Anion Gap 13.0 BUN 12 Creatinine 0.7 Estimated GFR (MDRD) 84 L Glucose 106 H Calcium 9.3 Total Bilirubin 1.0 AST 26 ALT 11 Alkaline Phosphatase 97 Troponin I < 0.04 Total Protein 7.0 Albumin 4.6 Globulin 2.4 Albumin/Globulin Ratio 1.9 Lipase 26 Urine Color Urine Clarity Urine pH Ur Specific Cost Urine Protein Urine Glucose (UA) Urine Ketones Urine Occult Blood Urine Nitrite Urine Bilirubin Urine Urobilinogen Ur Leukocyte Esterase Ur Microscopic Review Urine Culture Comments 08/21/18 05:50 WBC RBC Hgb Hct MCV MCH MCHC RDW Plt Count MPV Neut # (Auto) Lymph # (Auto) [place] # (Auto) Eos # (Auto) Baso # (Auto) Absolute Nucleated RBC Nucleated RBC % Sodium Potassium Chloride Carbon Dioxide Anion Gap BUN Creatinine Estimated GFR (MDRD) Glucose Calcium Total Bilirubin AST ALT Alkaline Phosphatase Troponin I Total Protein Albumin Globulin Albumin/Globulin Ratio Lipase Urine Color YELLOW Urine Clarity CLEAR Urine pH 7.0 Ur Specific [place] 1.010 Urine Protein NEGATIVE Urine Glucose (UA) NEGATIVE Urine Ketones NEGATIVE Urine Occult Blood TRACE-LYSE Urine Nitrite NEGATIVE Urine Bilirubin NEGATIVE Urine Urobilinogen 0.2 (NORMAL) Ur Leukocyte Esterase NEGATIVE Ur Microscopic Review NOT INDICATED Urine Culture Comments NOT INDICATED Procedures - IVC sono (time) 0450 Bedside IVC sono: IVC measures (cm) (0.84), IVC collapsed c insp (cm) (complete), Dehydration (est 2 liter deficit) PD MEDICAL DECISION MAKING - ED course Complexity details: reviewed old records, reviewed results, re-evaluated patient, considered differential, d/w patient ED course: 63-year-old female again with left upper quadrant abdominal pain and a decreased appetite appears dehydrated on interrogation of the inferior vena cava. She has been diagnosed previously with gastritis and has not completed a course of treatment. Here in the emergency department she is administered intravenous saline and an intravenous dose of famotidine. I have recommended she complete a course of treatment with the encouragement that this would be a short course and not a continued treatment. Departure - Departure Disposition: 01 Home, Self Care Clinical Impression: Gastritis Qualifiers: Gastritis type: unspecified gastritis Chronicity: chronic Gastritis bleeding: without bleeding Qualified Code(s): K29.50 - Unspecified chronic gastritis wit hout bleeding Condition: Stable Instructions: ED PUD Vs Gastritis Follow-Up: Summer Price DO [Primary Care Provider] - Prescriptions: Sucralfate [Carafate] 1 gm PO ACHS #30 tablet Comments: Today it appears the pain in your stomach is related to irritation of the s tomach lining. I recommend you take famotadine 20mg daily to reduce acid in your stomach and the carafate to help the stomach heal. This treatment should only be needed temporarily. Give it a try.
[2018-08-21 06:20] VITALS: BP 133/78
== END 2018-08-21 06:42 | disposition home or self-care (01) ==
LOC: ED 04:13
DX: K29.50 Unspecified chronic gastritis without bleeding (principal); E03.9 Hypothyroidism, unspecified
CPT/HCPCS: 36415; 80053; 81001; 81003; 83690; 84484; 85025; 87086; 96374; 99283

== ENCOUNTER 2018-09-19 07:33 | Outpatient (CLI) | payer MEDICAID ==
[2018-09-19 08:16] LABS: THYROID STIMULATING HORMONE 1.26 uIU/mL (0.34-5.60)
[2018-09-19 08:18] LABS: FREE T4 (FREE THYROXINE) 0.61 ng/dL (0.58-1.64)
== END 2018-09-19 07:34 | disposition home or self-care (01) ==
LOC: LAB 07:33
PROVIDERS: ATTEND Family Medicine
DX: E03.9 Hypothyroidism, unspecified (principal)
CPT/HCPCS: 36415; 84439; 84443; 84481

== ENCOUNTER 2018-11-18 07:54 | Emergency (ER) | payer MEDICAID ==
[2018-11-18 08:42] LABS: BILIRUBIN,URINE NEGATIVE (NEGATIVE); GLUCOSE, URINE (UA) NEGATIVE (NEGATIVE); KETONES,URINE (UA) NEGATIVE (NEGATIVE); LEUKOCYTE ESTERASE, URINE NEGATIVE (NEGATIVE); NITRITE,URINE NEGATIVE (NEGATIVE); OCCULT BLOOD,URINE TRACE-INTA (NEGATIVE); PROTEIN,URINE NEGATIVE (NEGATIVE); UROBILINOGEN,URINE 0.2 (NORMAL) E.U./dL (NORMAL)
[2018-11-18 08:46] LABS: CLARITY,URINE CLEAR (CLEAR)
[2018-11-18 09:23] LABS: BASOPHILS % (AUTO) 0.7 %; EOSINOPHILS % (AUTO) 0.8 %; HGB - HEMOGLOBIN 12.6 g/dL (12.0-16.0); LYMPHOCYTES # (AUTO) 1.4 10^3/uL (1.5-3.5); LYMPHOCYTES % (AUTO) 25.9 %; MEAN CORPUSCULAR HEMOGLOBIN 30.5 pg (27.0-31.0); MEAN CORPUSCULAR HGB CONC 35.6 g/dL (32.0-36.0); MEAN CORPUSCULAR VOLUME 85.7 fL (81.0-99.0); MONOCYTES # (AUTO) 0.5 10^3/uL (0.0-1.0); MONOCYTES % (AUTO) 8.4 %; NEUTROPHILS # (AUTO) 3.5 10^3/uL (1.5-6.6); NEUTROPHILS % (AUTO) 64.2 %; PLT - PLATELET COUNT 229 10^3/uL (130-450); RED BLOOD COUNT 4.14 10^6/uL (4.20-5.40); RED CELL DISTRIBUTION WIDTH 12.6 % (12.0-15.0); WHITE BLOOD COUNT 5.4 x10^3/uL (4.8-10.8)
[2018-11-18 09:36] LABS: ALBUMIN 4.3 g/dL (3.2-5.5); ALBUMIN/GLOBULIN RATIO 2.2 (1.0-2.2); BILIRUBIN,TOTAL 0.5 mg/dL (0.2-1.0); CALCIUM 8.9 mg/dL (8.5-10.3); CREATININE 0.7 mg/dL (0.4-1.0); TOTAL PROTEIN 6.3 g/dL (6.7-8.2)
[2018-11-18] MEDS ORDERED: MAG HYDROX/AL HYDROX/SIMETH 30 ML UDC PO STA (09:55)
--- NOTE | 2018-11-18 10:43 | ED Physician Documentation ---
History of Present Illness - Stated complaint Stated Complaint: ABD PX - Chief complaint Chief Complaint: Back Pain - History obtained from History obtained from: Patient - Additonal information Additional information: The patient is a 63-year-old female who complains of lower back pain that has been waxing and waning for the past month, radiating to her buttocks. She also reports dysuria, urgency of urination, and suprapubic abdominal discomfort. She reports nausea, without vomiting. She denies fever or diarrhea. She has a history of gastritis and gastroesophageal reflux disease. She has been taking a "detoxifying diet" consisting of numerous herbs and supplements for the past month. Part of this regimen includes drinking a vinegar containing liquid solution. She has been prescribed medication for GERD in the past, but she refuses to take the medication, stating it would counteract the detoxifying regimen that she has been pursuing. Review of Systems Constitutional: denies: Fever Nose: denies: Congestion Throat: denies: Sore throat Cardiac: denies: Chest pain / pressure Respiratory: denies: Dyspnea, Cough GI: reports: Abdominal Pain (suprapubic.), Nausea. denies: Vomiting, Diarrhea : reports: Dysuria, Frequency Skin: denies: Rash Musculoskeletal: reports: Back pain. 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 : None HEENT: Other Psych: Anxiety Musculoskeletal: None Derm: None - Past Surgical History Past Surgical History: Yes General: Hiatal hernia repair /EARLY CHILDHOOD ASSISTANT: Breast reduction HEENT: Tonsil/Adenoidectomy - Present Medications Home Medications: Ambulatory Orders Medication Instructions Recorded Confirmed Cyclobenzaprine [Flexeril] 10 mg PO PRN PRN 12/15/14 02/01/17 Cholecalciferol (Vitamin D3) 1,000 unit PO DAILY 10/14/16 11/01/17 [Vitamin D3] Cyanocobalamin (Vitamin B-12) 1,000 mcg PO DAILY 10/14/16 02/01/17 [Vitamin B-12] Multiple Herbs 0 10/14/16 Red Marine Algae 0 10/14/16 Digestive 8/L.acidoph/Pectin 2 each PO DAILY #60 tablet 10/07/17 [Digestive Enzymes Tablet] Clotrimazole [Clotrimazole AF] 1 applic TP BID #28 gm 01/25/18 - Allergies Allergies/Adverse Reactions: Allergies Allergy/AdvReac Type Severity Reaction Status Date / Time lithium [Amorita] Allergy Severe swelling Verified 08/21/18 04:21 albuterol Allergy Intermediate tachycardia Verified 08/21/18 04:21 hydromorphone HCl * Allergy Mild itchy Verified 08/21/18 04:21 [From Dilaudid] - Social History Does the pt smoke?: No Smoking Status: Never smoker Does the pt drink ETOH?: No Does the pt have substance abuse?: Yes - Immunizations Immunizations are current?: Yes - POLST Patient has POLST: No PD ED PE NORMAL - Vitals Vital signs reviewed: Yes (Initially hypertensive.) - General General: Alert and oriented X 3, Well developed/nourished, Other (Has a worried appearance.) - HEENT HEENT: Atraumatic, EOMI, Moist mucous membranes, Pharynx benign - Neck Neck: Supple, no meningeal sign, No adenopathy, No JVD - Cardiac Cardiac: RRR, No murmur - Respiratory Respiratory: No respiratory distress, Clear bilaterally - Abdomen Abdomen: Soft, Non tender - Back Back: No CVA TTP - Derm Derm: No rash - Extremities Extremities: No edema, No calf tenderness / cord - Neuro Neuro: Alert and oriented X 3, No motor deficit, No sensory deficit, Normal speech Results - Vitals Vitals: Oxygen O2 Source Room air - Labs Labs: Laboratory Tests 11/18/18 11/18/18 11/18/18 08:09 08:49 08:49 WBC 5.4 RBC 4.14 L Hgb 12.6 Hct 35.5 L MCV 85.7 MCH 30.5 MCHC 35.6 RDW 12.6 Plt Count 229 MPV 7.0 L Neut # (Auto) 3.5 Lymph # (Auto) 1.4 L [place] # (Auto) 0.5 Eos # (Auto) 0.0 Baso # (Auto) 0.0 Absolute Nucleated RBC 0.01 Nucleated RBC % 0.1 Sodium 139 Potassium 3.8 Chloride 104 Carbon Dioxide 27 Anion Gap 8.0 BUN 14 Creatinine 0.7 Estimated GFR (MDRD) 84 L Glucose 104 H Calcium 8.9 Total Bilirubin 0.5 AST 19 ALT 11 Alkaline Phosphatase 75 Total Protein 6.3 L Albumin 4.3 Globulin 2.0 L Albumin/Globulin Ratio 2.2 Lipase 37 Urine Color COLORLESS Urine Clarity CLEAR Urine pH 5.0 Ur Specific [place] <=1.005 Urine Protein NEGATIVE Urine Glucose (UA) NEGATIVE Urine Ketones NEGATIVE Urine Occult Blood TRACE-INTA Urine Nitrite NEGATIVE Urine Bilirubin NEGATIVE Urine Urobilinogen 0.2 (NORMAL) Ur Leukocyte Esterase NEGATIVE Ur Microscopic Review NOT INDICATED Urine Culture Comments NOT INDICATED PD MEDICAL DECISION MAKING - ED course Complexity details: reviewed old records, reviewed results, re-evaluated patient, considered differential, d/w patient ED course: The underlying cause for the patient's symptoms is unclear at this time. There is no evidence of urinary tract infection, with a completely negative UA. There is no specific finding on physical examination. CBC and chemistry panel are unremarkable. I suspect the patient's peculiar use of a potpourri of herbs, supplements, and vinegar water contributing to her symptoms. She is quite adamant that this is the course she wants to continue. She declines the use of any medication to help with gastritis or gastroesophageal reflux. I discussed with her the importance of outpatient follow-up, as well as potentially worrisome signs or symptoms that should prompt reevaluation in the emergency department. Departure - Departure Disposition: 01 Home, Self Care Clinical Impression: Urinary frequency, H/O gastritis Back pain Qualifiers: Back pain location: low back pain Chronicity: chronic Back pain laterality: bilateral Sciatica presence: without sciatica Qualified Code(s): M54.5 - Low back pain Condition: Stable Instructions: ED Abdominal Pain Unkn Cause, ED Low Back Pain Injury Follow-Up: Summer Price DO [Primary Care Provider] - Comments: You can try using liquid antacid, such as Maalox or Mylanta, if you develop recurrent gastric pain. Discuss with your primary physician the detox regimen which you are taking. Call to schedule follow-up appointment Return to the emergency department if you develop increasing pain, persistent vomiting, or otherwise worsening symptoms. Discharge Date/Time: 11/18/18 10:51
[2018-11-18 10:51] VITALS: BP 125/65
== END 2018-11-18 10:51 | disposition home or self-care (01) ==
LOC: ED 07:54
DX: R35.0 Frequency of micturition (principal); M54.5 Low back pain; E03.9 Hypothyroidism, unspecified
CPT/HCPCS: 36415; 80053; 81003; 83690; 85025; 99282; 99283; A9270; 81001; 87086

== ENCOUNTER 2018-11-21 15:29 | Outpatient (CLI) | payer MEDICAID ==
--- NOTE | 2018-11-22 01:53 | XRAY Report ---
Reason: BACK PAIN,DORSALGIA, UNSPECIFIED Procedure Date: 11/21/2018 Accession Number: [id number] / [id number] Procedure: XR - Lumbar Spine 2 View CPT Code: FULL RESULT: EXAM: LUMBOSACRAL SPINE RADIOGRAPHY EXAM DATE: 11/21/2018 04:18 PM. CLINICAL HISTORY: BACK PAIN,DORSALGIA, UNSPECIFIED. COMPARISONS: LUMBAR SPINE 2 VIEW 01/26/2018 2:07 PM. TECHNIQUE: 2 views. FINDINGS: Alignment: Normal. No spondylolisthesis or scoliosis. Bones: Five [id number] lumbar vertebral bodies are present. No fractures or bone lesions. Disks: Mild degenerative disk disease. Facets: Mild facet arthropathy. Sacroiliac Joints: Unremarkable. Soft Tissues: Normal. The visualized bowel gas pattern is normal. IMPRESSION: Mild degenerative changes. No evidence of fracture. RADIA
== END 2018-11-21 15:30 | disposition home or self-care (01) ==
LOC: DI 15:29
PROVIDERS: ATTEND Family Medicine
DX: M51.36 Other intervertebral disc degeneration, lumbar region (principal)
CPT/HCPCS: 72100

== ENCOUNTER 2018-12-06 07:01 | Outpatient (CLI) | payer MEDICAID ==
[2018-12-06] MEDS ORDERED: IOVERSOL 320 100 ML VIAL IVP ONE (07:12)
[2018-12-06] MEDS ORDERED: IOVERSOL 320 50 ML VIAL ONE (07:12)
[2018-12-06] MEDS: IOVERSOL 320 100 ML VIAL IVP ONE (08:51)
[2018-12-06] MEDS: IOVERSOL 320 50 ML VIAL PO ONE (08:51)
--- NOTE | 2018-12-06 11:12 | CT Report ---
Reason: ABDOMINAL PAIN,BLADDER PAIN,PARESTHESIA Procedure Date: 12/06/2018 Accession Number: [id number] / [id number] Procedure: CT - Abdomen/Pelvis W/ CPT Code: FULL RESULT: EXAM: CT ABDOMEN AND PELVIS EXAM DATE: 12/06/2018 08:15 AM. CLINICAL HISTORY: Abdominal pain, bladder pain, paresthesia. COMPARISONS: ABDOMEN/PELVIS W/ 10/07/2017 1:50 PM. TECHNIQUE: Routine helical CT imaging was performed through the abdomen and pelvis. IV contrast: OPTI 320 90 mL. Enteric contrast: Yes. Reconstructions: Coronal and sagittal. In accordance with CT protocol optimization, one or more of the following dose reduction techniques were utilized for this exam: automated exposure control, adjustment of mA and/or KV based on patient size, or use of iterative reconstructive technique. FINDINGS: Lung Bases: Unremarkable. Liver: Normal. No masses. Gallbladder/Bile Ducts: Unremarkable. Spleen: Normal. Pancreas: Normal. Adrenal Glands: Normal. Kidneys: Normal. No masses or hydronephrosis. Peritoneal Cavity/Bowel: Normal. No free fluid, free air or adenopathy. No masses or acute inflammatory process. The appendix is well visualized and normal. Pelvic Organs: Normal. The bladder and visualized pelvic organs are within normal limits. Vasculature: Mild to moderate atherosclerotic disease without aneurysm. Bones: No significant abnormality. Other: None. IMPRESSION: The etiology of the patient's abdominal and bladder pain is not identified. RADIA
--- NOTE | 2018-12-06 13:12 | CT Report ---
Reason: ABDOMINAL PAIN,BLADDER PAIN,PARESTHESIA Procedure Date: 12/06/2018 Accession Number: [id number] / [id number] Procedure: CT - Lumbar Spine W/ CPT Code: FULL RESULT: EXAM: CT LUMBAR SPINE WITH CONTRAST EXAM DATE: 12/06/2018 08:48 AM. CLINICAL HISTORY: Abdominal pain, bladder pain, paresthesia. COMPARISONS: Lumbar spine radiographs 11/21/2018. TECHNIQUE: Thin-section axial images were acquired of the lumbar spine from T12 to S1 after administration of intravenous contrast. Post-processing: Coronal and sagittal reformats. Other: None. IV contrast: OPTI 320 [address] mL. In accordance with [address] protocol optimization, one or more of the following dose reduction techniques were utilized for this exam: automated exposure control, adjustment of mA and/or KV based on patient size, or use of iterative reconstructive technique. FINDINGS: No suspicious lytic or blastic lesion is present in the lumbar vertebral bodies or in the sacrum. No fracture line is present in the lumbar vertebral bodies. No significant spondylolisthesis is present. Disk space height is preserved throughout the lumbar spine. Mild loss of disk space height is seen at T12-L1 with a minimal posterior disk protrusion at T12-L1. L1-L2: A minimal posterior disk protrusion is seen. No central canal or foraminal stenosis. L2-L3: A minimal posterior disk protrusion is seen. No central canal or foraminal stenosis. L3-L4: No posterior disk protrusion. L4-L5: Minimal posterior disk protrusion. L5-S1: No posterior disk protrusion. No central canal or foraminal stenosis. IMPRESSION: 1. Minimal posterior disk protrusions are present. No central canal or foraminal stenosis is identified. 2. No significant spondylolisthesis is present. 3. No suspicious lytic or blastic region is identified in the lumbar vertebral bodies. RADIA
== END 2018-12-06 07:02 | disposition home or self-care (01) ==
LOC: DI 07:01
PROVIDERS: ATTEND Family Medicine
DX: R10.9 Unspecified abdominal pain (principal); R39.89 Other symptoms and signs involving the genitourinary system; M51.26 Other intervertebral disc displacement, lumbar region; M51.25 Other intervertebral disc displacement, thoracolumbar region
CPT/HCPCS: 72132; 74177; Q9967

== ENCOUNTER 2019-02-22 07:16 | Outpatient (CLI) | payer MEDICAID ==
[2019-02-22 08:14] LABS: FERRITIN 64.5 ng/mL (11.0-306.8)
[2019-02-22 09:09] LABS: HB2 TOTAL 14.4 g/dL; HEMOGLOBIN A1C 0.53 g/dL; HEMOGLOBIN A1C % 5.5 % (4.6-6.2)
== END 2019-02-22 07:17 | disposition home or self-care (01) ==
LOC: LAB 07:16
PROVIDERS: ATTEND Family Medicine
DX: E72.12 Methylenetetrahydrofolate reductase deficiency (principal); E61.1 Iron deficiency; G35 Multiple sclerosis; Z13.1 Encounter for screening for diabetes mellitus
CPT/HCPCS: 36415; 82306; 82607; 82728; 83036

== ENCOUNTER 2019-03-02 07:35 | Outpatient (CLI) | payer MEDICAID, MEDICARE ==
[2019-03-02 07:56] LABS: BASOPHILS % (AUTO) 0.5 %; EOSINOPHILS % (AUTO) 0.8 %; LYMPHOCYTES % (AUTO) 34.7 %; MEAN CORPUSCULAR HEMOGLOBIN 29.9 pg (27.0-31.0); MEAN CORPUSCULAR HGB CONC 33.8 g/dL (32.0-36.0); MEAN CORPUSCULAR VOLUME 88.5 fL (81.0-99.0); MEAN PLATELET VOLUME 6.9 fL (7.9-10.8); MONOCYTES # (AUTO) 0.5 10^3/uL (0.0-1.0); MONOCYTES % (AUTO) 9.2 %; NEUTROPHILS # (AUTO) 3.1 10^3/uL (1.5-6.6); NEUTROPHILS % (AUTO) 54.8 %; PLT - PLATELET COUNT 269 10^3/uL (130-450); RED BLOOD COUNT 4.68 10^6/uL (4.20-5.40); RED CELL DISTRIBUTION WIDTH 12.5 % (12.0-15.0); WHITE BLOOD COUNT 5.7 x10^3/uL (4.8-10.8)
== END 2019-03-02 07:36 | disposition home or self-care (01) ==
LOC: LAB 07:35
PROVIDERS: ATTEND Family Medicine
DX: D52.9 Folate deficiency anemia, unspecified (principal); E61.1 Iron deficiency
CPT/HCPCS: 36415; 82746; 85025

== ENCOUNTER 2019-03-09 04:54 | Emergency (ER) | payer MEDICAID, MEDICARE ==
--- NOTE | 2019-03-09 05:05 | ED Physician Documentation ---
PD HPI CHEST PAIN - Stated complaint Stated Complaint: CHEST PX - Chief complaint Chief Complaint: Cardiac - History obtained from History obtained from: Patient - History of Present Illness Timing - onset: How many hours ago (4 11/09), Today Timing - onset during: Sleep (She states she awoke from sleep with a feeling of her heart racing, short of breath and lightheaded. This lasted for several minutes and then decreased. She continued with the feeling of her heart going fast at times. She was concerned about it being a "heart event".) Timing - duration: Minutes Timing - details: Abrupt onset, Now resolved Quality: Tightness. No: Pressure Location: Substernal Radiation: Back Improved by: Other (sitting up and doing breathing exercises) Associated symptoms: Shortness of air, Feeling faint / dizzy, Palpitations. No: Nausea, Cough Similar symptoms before: Has not had sx before Review of Systems Constitutional: reports: Myalgias, Fatigue. denies: Fever, Chills, Weight Loss Nose: denies: Rhinorrhea / runny nose, Congestion Throat: denies: Sore throat Respiratory: denies: Cough GI: reports: Nausea. 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 : None HEENT: Other Psych: Anxiety Musculoskeletal: None Derm: None - Past Surgical History Past Surgical History: Yes General: Hiatal hernia repair /PROCESS TREATER: Breast reduction HEENT: Tonsil/Adenoidectomy - Present Medications Home Medications: Ambulatory Orders Medication Instructions Recorded Confirmed Cyclobenzaprine [Flexeril] 10 mg PO PRN PRN 12/15/14 02/01/17 Cholecalciferol (Vitamin D3) 1,000 unit PO DAILY 10/14/16 11/01/17 [Vitamin D3] Cyanocobalamin (Vitamin B-12) 1,000 mcg PO DAILY 10/14/16 02/01/17 [Vitamin B-12] Multiple Herbs 0 10/14/16 Red Marine Algae 0 10/14/16 Digestive 8/L.acidoph/Pectin 2 each PO DAILY #60 tablet 10/07/17 [Digestive Enzymes Tablet] Clotrimazole [Clotrimazole AF] 1 applic TP BID #28 gm 01/25/18 - Allergies Allergies/Adverse Reactions: Allergies Allergy/AdvReac Type Severity Reaction Status Date / Time lithium [[place]] Allergy Severe swelling Verified 03/09/19 05:06 albuterol Allergy Intermediate tachycardia Verified 03/09/19 05:06 hydromorphone HCl * Allergy Mild itchy Verified 03/09/19 05:06 [From Dilaudid] - Social History Does the pt smoke?: No Smoking Status: Never smoker Does the pt drink ETOH?: No Does the pt have substance abuse?: Yes - Immunizations Immunizations are current?: Yes - POLST Patient has POLST: No PD ED PE NORMAL - Vitals Vital signs reviewed: Yes - General General: Alert and oriented X 3, No acute distress, Well developed/nourished - HEENT HEENT: Pharynx benign - Neck Neck: Supple, no meningeal sign, No adenopathy - Cardiac Cardiac: RRR, No murmur - Respiratory Respiratory: Clear bilaterally - Abdomen Abdomen: Normal bowel sounds, Soft, Non tender - Back Back: No CVA TTP - Derm Derm: Normal color, Warm and dry - Extremities Extremities: No deformity, No tenderness to palpate, Normal ROM s pain, No edema, No calf tenderness / cord - Neuro Neuro: Alert and oriented X 3, No motor deficit, Normal speech Eye Opening: Spontaneous Motor: Obeys Commands Verbal: Oriented GCS Score: 15 Results - Vitals Vitals: Vital Signs - 24 hr 03/09/19 03/09/19 03/09/19 05:03 05:47 06:20 Temperature 36.5 C Heart Rate 106 H 91 87 Respiratory 21 15 12 Rate Blood Pressure 164/76 H 154/79 H 154/79 H O2 Saturation 99 99 100 Oxygen O2 Source Room air - EKG (time done) 05:07 Rate: Rate (enter#) (104) Rhythm: Sinus tachycardia [place]: Normal Intervals: Normal CT QRS: Normal Ischemia: Normal ST segments. No: ST elevation c/w ischemia, ST depression - Labs Labs: Laboratory Tests 03/09/19 03/09/19 03/09/19 05:49 05:49 05:49 WBC 5.4 RBC 4.59 Hgb 13.6 Hct 40.2 MCV 87.6 MCH 29.7 MCHC 33.9 RDW 12.7 Plt Count 268 MPV 6.9 L Neut # (Auto) 3.1 Lymph # (Auto) 1.8 [place] # (Auto) 0.4 Eos # (Auto) 0.0 Baso # (Auto) 0.0 Absolute Nucleated RBC 0.00 Nucleated RBC % 0.0 Sodium 140 Potassium 3.6 Chloride 103 Carbon Dioxide 26 Anion Gap 11.0 BUN 9 Creatinine 0.5 Estimated GFR (MDRD) 124 Glucose 107 H Calcium 9.4 Total Bilirubin 1.0 AST 21 ALT 13 Alkaline Phosphatase 91 Troponin I < 0.04 B-Natriuretic Peptide Total Protein 6.9 Albumin 4.7 Globulin 2.2 Albumin/Globulin Ratio 2.1 Lipase 32 03/09/19 05:49 WBC RBC Hgb Hct MCV MCH MCHC RDW Plt Count MPV Neut # (Auto) Lymph # (Auto) [place] # (Auto) Eos # (Auto) Baso # (Auto) Absolute Nucleated RBC Nucleated RBC % Sodium Potassium Chloride Carbon Dioxide Anion Gap BUN Creatinine Estimated GFR (MDRD) Glucose Calcium Total Bilirubin AST ALT Alkaline Phosphatase Troponin I B-Natriuretic Peptide 34 Total Protein Albumin Globulin Albumin/Globulin Ratio Lipase PD MEDICAL DECISION MAKING - ED course Complexity details: reviewed results, considered differential (Sounds like it ma y have been reflux or heartburn or vasovagal lightheadedness. She is slightly tachycardic but does not have symptoms here and has a normal EKG and troponin.), d/w patient Departure - Departure Disposition: 01 Home, Self Care Clinical Impression: Chest discomfort, Near syncope Clinical Impression: (Ruled Out): Myocardial infarction Condition: Stable Record reviewed to determine appropriate education?: Yes Instructions: ED Chest Pain Atypical Unkn Cause Follow-Up: Summer Price DO [Primary Care Provider] - Comments: Your EKG and blood tests are good without any signs of a heart event. Continue usual medications. Stay well-hydrated. Follow-up with your primary care.
[2019-03-09 05:55] LABS: BASOPHILS % (AUTO) 0.7 %; EOSINOPHILS % (AUTO) 0.4 %; HGB - HEMOGLOBIN 13.6 g/dL (12.0-16.0); LYMPHOCYTES # (AUTO) 1.8 10^3/uL (1.5-3.5); LYMPHOCYTES % (AUTO) 32.8 %; MEAN CORPUSCULAR HEMOGLOBIN 29.7 pg (27.0-31.0); MEAN CORPUSCULAR HGB CONC 33.9 g/dL (32.0-36.0); MEAN CORPUSCULAR VOLUME 87.6 fL (81.0-99.0); MEAN PLATELET VOLUME 6.9 fL (7.9-10.8); MONOCYTES # (AUTO) 0.4 10^3/uL (0.0-1.0); MONOCYTES % (AUTO) 7.5 %; NEUTROPHILS # (AUTO) 3.1 10^3/uL (1.5-6.6); NEUTROPHILS % (AUTO) 58.6 %; PLT - PLATELET COUNT 268 10^3/uL (130-450); RED BLOOD COUNT 4.59 10^6/uL (4.20-5.40); RED CELL DISTRIBUTION WIDTH 12.7 % (12.0-15.0); WHITE BLOOD COUNT 5.4 x10^3/uL (4.8-10.8)
[2019-03-09 06:08] LABS: ALBUMIN 4.7 g/dL (3.2-5.5); ALBUMIN/GLOBULIN RATIO 2.1 (1.0-2.2); CALCIUM 9.4 mg/dL (8.5-10.3); CREATININE 0.5 mg/dL (0.4-1.0); TOTAL PROTEIN 6.9 g/dL (6.7-8.2)
[2019-03-09 06:38] VITALS: BP 144/69
== END 2019-03-09 06:48 | disposition home or self-care (01) ==
LOC: ED 04:54
DX: R07.89 Other chest pain (principal); R55 Syncope and collapse; R00.0 Tachycardia, unspecified
CPT/HCPCS: 36415; 80053; 83690; 83880; 84484; 85025; 93005; 99283; 99284

== ENCOUNTER 2019-08-16 07:23 | Outpatient (CLI) | payer MEDICARE, MEDICAID ==
[2019-08-16 07:48] LABS: CALCIUM 9.1 mg/dL (8.5-10.3); CREATININE 0.6 mg/dL (0.4-1.0)
== END 2019-08-16 07:24 | disposition home or self-care (01) ==
LOC: LAB 07:23
PROVIDERS: ATTEND Family Medicine
DX: E61.1 Iron deficiency (principal); E72.12 Methylenetetrahydrofolate reductase deficiency; E03.9 Hypothyroidism, unspecified; B53.8 Other malaria, not elsewhere classified; M81.8 Other osteoporosis without current pathological fracture; E55.9 Vitamin D deficiency, unspecified
CPT/HCPCS: 36415; 80048

== ENCOUNTER 2019-09-18 08:00 | Outpatient (CLI) | payer MEDICARE, MEDICAID | END 2019-09-18 23:59 | disposition home or self-care (01) | LOC: LAB.R 08:00 | PROVIDERS: ATTEND Physician Assistant | DX: R19.7 Diarrhea, unspecified (principal) | CPT/HCPCS: 81599; 87507 ==

== ENCOUNTER 2019-11-07 12:40 | Emergency (ER) | payer MEDICARE, MEDICAID ==
--- NOTE | 2019-11-07 13:01 | ED Physician Documentation ---
PD HPI HEADACHE - Stated complaint Stated Complaint: HEADACHE - Chief complaint Chief Complaint: Heent - History obtained from History obtained from: Patient - History of Present Illness Timing - onset: Yesterday (64-year-old woman with history of occipital neuralgia presents with headache since yesterday. It is over the bridge of the nose and over the maxillary sinuses. It does not worsen with change of position. She is unable to state whether it is similar to or different than prior headaches or episodes of occipital neuralgia. She states her pain started yesterday after a bout of crying related to something her [id number] said that was mean. She denies fevers or chills. No dental pain. No visual difficulty but she was photophobic more than normal yesterday, but she says she is also always photophobic to some extent. She denies neck stiffness or fevers.) Review of Systems Constitutional: reports: Fatigue (Chronic). 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 : None HEENT: Other Psych: Anxiety Musculoskeletal: None Derm: None - Past Surgical History Past Surgical History: Yes General: Hiatal hernia repair /SENIOR SPECIALIST: Breast reduction HEENT: Tonsil/Adenoidectomy - Present Medications Home Medications: Ambulatory Orders Medication Instructions Recorded Confirmed Cyclobenzaprine [Flexeril] 10 mg PO PRN PRN 12/15/14 02/01/17 Cholecalciferol (Vitamin D3) 1,000 unit PO DAILY 10/14/16 11/01/17 [Vitamin D3] Cyanocobalamin (Vitamin B-12) 1,000 mcg PO DAILY 10/14/16 02/01/17 [Vitamin B-12] Multiple Herbs 0 10/14/16 Red Marine Algae 0 10/14/16 Digestive 8/L.acidoph/Pectin 2 each PO DAILY #60 tablet 10/07/17 [Digestive Enzymes Tablet] Clotrimazole [Clotrimazole AF] 1 applic TP BID #28 gm 03/20/18 Amox/Clav 875/125 [Augmentin] 1 each PO Q12H #20 tablet 11/07/19 Mometasone Furoate [Nasonex] 1 spray NS BID #1 spray.pump 11/07/19 - Allergies Allergies/Adverse Reactions: Allergies Allergy/AdvReac Type Severity Reaction Status Date / Time lithium [Flushing] Allergy Severe swelling Verified 11/07/19 12:42 albuterol Allergy Intermediate tachycardia Verified 11/07/19 12:42 hydromorphone HCl * Allergy Mild itchy Verified 11/07/19 12:42 [From Dilaudid] - Social History Does the pt smoke?: No Smoking Status: Never smoker Does the pt drink ETOH?: No Does the pt have substance abuse?: Yes - Immunizations Immunizations are current?: Yes - POLST Patient has POLST: No PD ED PE NORMAL - Vitals Vital signs reviewed: Yes - General General: Alert and oriented X 3, No acute distress - HEENT HEENT: PERRL, EOMI, Ears normal, Pharynx benign, Other (No tenderness over the sinuses or temporal arteries) - Neck Neck: Supple, no meningeal sign, No bony TTP - Derm Derm: No rash - Neuro Neuro: Alert and oriented 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, 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, No motor deficit, No sensory deficit, Normal speech - Psych Psych: Normal mood, Normal affect Results - Vitals Vitals: Vital Signs - 24 hr 11/07/19 12:43 Temperature 36.6 C Heart Rate 93 Respiratory 18 Rate Blood Pressure 160/82 H O2 Saturation 98 Oxygen O2 Source Room air - Labs Labs: Laboratory Tests 11/07/19 11/07/19 11/07/19 13:10 13:10 13:10 WBC 7.5 RBC 4.67 Hgb 14.2 Hct 41.0 MCV 87.8 MCH 30.4 MCHC 34.6 RDW 12.0 Plt Count 285 MPV 8.5 Neut # (Auto) 4.0 Lymph # (Auto) 2.7 [place] # (Auto) 0.7 Eos # (Auto) 0.1 Baso # (Auto) 0.0 Absolute Nucleated RBC 0.00 Nucleated RBC % 0.0 ESR 7 Sodium 139 Potassium 3.4 L Chloride 101 Carbon Dioxide 26 Anion Gap 12.0 BUN 11 Creatinine 0.7 Estimated GFR (MDRD) 84 L Glucose 107 H Calcium 9.6 Total Bilirubin 0.9 AST 22 ALT 15 Alkaline Phosphatase 95 C-Reactive Protein < 1.0 Total Protein 7.1 Albumin 4.8 Globulin 2.3 Albumin/Globulin Ratio 2.1 Lipase 37 PD MEDICAL DECISION MAKING - ED course ED course: 64-year-old woman presents with facial pain, distribution is most consistent with sinusitis, and her age though other/vasculitis etiologies were considered but her sed rate and CRP are negative. Departure - Departure Disposition: Home, Self Care Clinical Impression: Sinusitis Qualifiers: Sinusitis location: maxillary Chronicity: acute Recurrence: recurrent Qualified Code(s): J01.01 - Acute recurrent maxillary sinusitis Condition: Good Record reviewed to determine appropriate education?: Yes Instructions: ED Sinusitis Abx Tx Prescriptions: Amox/Clav 875/125 [Augmentin] 1 each PO Q12H #20 tablet Mometasone Furoate [Nasonex] 1 spray NS BID #1 spray.pump Comments: Call your doctor to arrange a follow-up appointment, make the next available appointment. In the interim, return anytime if worse or if new symptoms develop. Your blood pressure was elevated today on check into the emergency department. This does not mean that you have hypertension, it is a common phenomenon to come to the emergency department and have elevated blood pressure. I recommend that you see your primary care physician within the week to have it rechecked when you are feeling better.
[2019-11-07 13:19] LABS: BASOPHILS % (AUTO) 0.4 %; EOSINOPHILS # (AUTO) 0.1 10^3/uL (0.0-0.7); EOSINOPHILS % (AUTO) 0.7 %; HGB - HEMOGLOBIN 14.2 g/dL (12.0-16.0); LYMPHOCYTES # (AUTO) 2.7 10^3/uL (1.5-3.5); MEAN CORPUSCULAR HEMOGLOBIN 30.4 pg (27.0-31.0); MEAN CORPUSCULAR HGB CONC 34.6 g/dL (32.0-36.0); MEAN CORPUSCULAR VOLUME 87.8 fL (81.0-99.0); MEAN PLATELET VOLUME 8.5 fL (7.9-10.8); MONOCYTES # (AUTO) 0.7 10^3/uL (0.0-1.0); MONOCYTES % (AUTO) 8.7 %; NEUTROPHILS % (AUTO) 53.9 %; PLT - PLATELET COUNT 285 10^3/uL (130-450); RED BLOOD COUNT 4.67 10^6/uL (4.20-5.40); WHITE BLOOD COUNT 7.5 x10^3/uL (4.8-10.8)
[2019-11-07 13:37] LABS: ALBUMIN 4.8 g/dL (3.2-5.5); ALBUMIN/GLOBULIN RATIO 2.1 (1.0-2.2); ALKALINE PHOSPHATASE 95 IU/L (42-121); ALT ALANINE AMINOTRANSFERASE 15 IU/L (10-60); AST ASPARTATE AMINOTRANSFERASE 22 IU/L (10-42); BILIRUBIN,TOTAL 0.9 mg/dL (0.2-1.0); BUN - BLOOD UREA NITROGEN 11 mg/dL (6-20); CALCIUM 9.6 mg/dL (8.5-10.3); CARBON DIOXIDE - CO2 26 mmol/L (21-32); CHLORIDE 101 mmol/L (101-111); CREATININE 0.7 mg/dL (0.4-1.0); GFR - MDRD 84 (>89); GLUCOSE 107 mg/dL (70-100); LIPASE 37 U/L (22-51); SODIUM 139 mmol/L (135-145); TOTAL PROTEIN 7.1 g/dL (6.7-8.2)
[2019-11-07 13:43] LABS: CRP - C-REACTIVE PROTEIN < 1.0 mg/dL (0-1.0)
[2019-11-07 13:56] VITALS: BP 143/72
== END 2019-11-07 14:29 | disposition home or self-care (01) ==
LOC: ED 12:40
DX: J01.01 Acute recurrent maxillary sinusitis (principal); R03.0 Elevated blood-pressure reading, without diagnosis of hypertension
CPT/HCPCS: 36415; 80053; 83690; 85025; 85651; 86140; 99283; 99284

== ENCOUNTER 2019-11-22 05:56 | Emergency (ER) | payer MEDICARE, MEDICAID ==
[2019-11-22] MEDS ORDERED: MAG HYDROX/AL HYDROX/SIMETH 30 ML UDC PO STA ×2 (06:44→09:26)
[2019-11-22] MEDS ORDERED: LIDOCAINE VISCOUS 2% 15 ML UDC MM STA ×2 (06:44→09:26)
--- NOTE | 2019-11-22 06:48 | ED Physician Documentation ---
PD HPI ABD PAIN - Stated complaint Stated Complaint: UPPER ABD PX - Chief complaint Chief Complaint: Abd Pain - History obtained from History obtained from: Patient - History of Present Illness Timing - onset: How many weeks ago (2) Timing - duration: Weeks (2) Timing - details: Gradual onset, Still present Quality: Sharp, Pain Location: Epigastric Radiation: Chest Improved by: Other (nothing) Worsened by: Eating Associated symptoms: No: Fever, Nausea, Vomiting, Hematemesis, Diarrhea, Constipation Similar symptoms before: Diagnosis (esophagitis and gastritis) Recently seen: Other - Additional information Additional information: 64-year-old female who has had a prior diagnosis of gastritis and duodenitis has had an endoscopy done 6 weeks ago and following that she took 2 weeks of Diflucan for esophageal candidiasis. She states that she did not feel that she had esophageal pain but that the left upper quadrant pain that she had been experiencing improved and she felt that that was most improved with the use of Pepcid AC.The patient is a poor historian and usually has some circumlocution revolving around use of supplements and things that are bad for her or good for her. She does a lot of self diagnosis and self treatment with herbs and teas. She indicates that she thinks she has been drinking lots of fluids yesterday. Review of Systems Constitutional: reports: Weight Loss, Other (Reports that her temperature is usually low and has something to do with her thyroid and now its normal.). denies: Fever Eyes: denies: Decreased vision Ears: denies: Ear pain Nose: denies: Congestion Throat: denies: Sore throat Cardiac: denies: Chest pain / pressure, Palpitations Respiratory: denies: Dyspnea, Cough GI: reports: Abdominal Pain, Nausea. 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 : None HEENT: Other Psych: Anxiety Musculoskeletal: None Derm: None Other Past Medical History: B12 deficiency, Occipital neuralgia - Past Surgical History Past Surgical History: Yes General: Hiatal hernia repair, EGD /COMPUTER NETWORK SPECIALIST: Breast reduction HEENT: Tonsil/Adenoidectomy - Present Medications Home Medications: Ambulatory Orders Medication Instructions Recorded Confirmed Cyclobenzaprine [Flexeril] 10 mg PO PRN PRN 12/15/14 02/01/17 Cholecalciferol (Vitamin D3) 1,000 unit PO DAILY 10/14/16 11/01/17 [Vitamin D3] Cyanocobalamin (Vitamin B-12) 1,000 mcg PO DAILY 10/14/16 02/01/17 [Vitamin B-12] Multiple Herbs 0 10/14/16 Red Marine Algae 0 10/14/16 Digestive 8/L.acidoph/Pectin 2 each PO DAILY #60 tablet 10/07/17 [Digestive Enzymes Tablet] Clotrimazole [Clotrimazole AF] 1 applic TP BID #28 gm 01/25/18 Amox/Clav 875/125 [Augmentin] 1 each PO Q12H #20 tablet 11/07/19 Mometasone Furoate [Nasonex] 1 spray NS BID #1 spray.pump 11/07/19 Sucralfate [Carafate] 1 gm PO ACHS #60 tablet 11/22/19 - Allergies Allergies/Adverse Reactions: Allergies Allergy/AdvReac Type Severity Reaction Status Date / Time lithium [[place]ex] Allergy Severe swelling Verified 11/07/19 12:42 albuterol Allergy Intermediate tachycardia Verified 11/07/19 12:42 hydromorphone HCl * Allergy Mild itchy Verified 11/07/19 12:42 [From Dilaudid] gluten Allergy Unknown Verified 11/22/19 06:25 - Social History Does the pt smoke?: No Smoking Status: Never smoker Does the pt drink ETOH?: No Does the pt have substance abuse?: Yes Substance Use and Type: Marijuana - Immunizations Immunizations are current?: Yes - POLST Patient has POLST: No PD ED PE NORMAL - Vitals Vital signs reviewed: Yes (Tachycardic and hypertensive) - General General: Alert and oriented X 3, No acute distress, Well developed/nourished - HEENT HEENT: Atraumatic, PERRL, EOMI - Neck Neck: Supple, no meningeal sign, No bony TTP - Cardiac Cardiac: No murmur, Other (tachy to 120) - Abdomen Abdomen: Soft, Non tender - Back Back: No CVA TTP, No spinal TTP - Derm Derm: Normal color, Warm and dry, No rash - Extremities Extremities: No deformity, No edema - Neuro Neuro: Alert and oriented X 3, pals specialist 2-12 intact, No motor deficit, No sensory deficit, Normal speech Eye Opening: Spontaneous Motor: Obeys Commands Verbal: Oriented GCS Score: 15 - Psych Psych: Normal mood, Normal affect Results - Vitals Vitals: Vital Signs - 24 hr 11/22/19 06:03 Heart Rate 156 H Respiratory 20 Rate Blood Pressure 139/88 H O2 Saturation 96 Oxygen O2 Source Room air - EKG (time done) 0609 Rate: Rate (enter#) (140) Rhythm: Sinus tachycardia Intervals: Prolonged QT Ischemia: ST depression Compare to prior EKG: Changed from prior EKG (SPT 03-09-2019 the rate has increased and the ST depressions have deepened. ) Computer interpretation: Agree with computer - Labs Labs: Laboratory Tests 11/22/19 11/22/19 11/22/19 06:50 06:50 06:50 WBC 4.3 L RBC 4.54 Hgb 13.6 Hct 38.8 MCV 85.5 MCH 30.0 MCHC 35.1 RDW 11.7 L Plt Count 271 MPV 8.6 Neut # (Auto) 1.8 Lymph # (Auto) 2.1 [place] # (Auto) 0.4 Eos # (Auto) 0.0 Baso # (Auto) 0.0 Absolute Nucleated RBC 0.00 Nucleated RBC % 0.0 Sodium 141 Potassium 2.9 L Chloride 105 Carbon Dioxide 22 Anion Gap 14.0 H BUN 11 Creatinine 0.8 Estimated GFR (MDRD) 72 L Glucose 114 H Calcium 10.0 Total Bilirubin 1.1 H AST 25 ALT 12 Alkaline Phosphatase 87 Troponin I High Sens < 2.3 L Total Protein 7.0 Albumin 4.7 Globulin 2.3 Albumin/Globulin Ratio 2.0 Lipase 36 Procedures - IVC sono (time) 0640 Bedside IVC sono: IVC measures (cm) (0.71), IVC collapsed c insp (cm) (complete), Significant dehydration (>2 liter deficit) PD MEDICAL DECISION MAKING - ED course Complexity details: reviewed old records, reviewed results, re-evaluated patient, considered differential, d/w patient ED course: 64-year-old female who uses a lot of supplements and teas has recently been treated for esophageal candidiasis and she is now having some epigastric pain that has been keeping her awake at night and has been present for about 2 weeks. She feels she is lost weight she is decreased her appetite and despite her thinking she is drinking plenty of fluids see significantly dehydrated and arrives to the emergency department with a heart rate of 140. Her IVC measures 0.71 with a complete collapse and estimated volume deficit of greater than 2 L. Patient is administered viscous lidocaine and Mylanta with improvement in her symptoms and once fluids are started her heart rate comes down as well. I have encouraged the patient again to take the Carafate as prescribed we will prescribe her some Carafate today and we have given her a dose here in the emergency department. Departure - Departure Clinical Impression: Dehydration, Hypokalemia Gastritis Qualifiers: Gastritis type: unspecified gastritis Chronicity: acute Gastritis bleeding: without bleeding Qualified Code(s): K29.00 - Acute gastritis without bleeding Condition: Stable Instructions: ED Dehydration, ED PUD Vs Gastritis, ED Diet High Potassium, ED Potassium Deficiency Follow-Up: Summer Price DO [Primary Care Provider] - Prescriptions: Sucralfate [Carafate] 1 gm PO ACHS #60 tablet
[2019-11-22] MEDS ORDERED: SODIUM CHLORIDE 0.9% 1,000 ML IV ONE (06:50)
[2019-11-22 06:58] LABS: BASOPHILS % (AUTO) 0.5 %; EOSINOPHILS % (AUTO) 0.9 %; HGB - HEMOGLOBIN 13.6 g/dL (12.0-16.0); LYMPHOCYTES # (AUTO) 2.1 10^3/uL (1.5-3.5); LYMPHOCYTES % (AUTO) 47.8 %; MEAN CORPUSCULAR HGB CONC 35.1 g/dL (32.0-36.0); MEAN CORPUSCULAR VOLUME 85.5 fL (81.0-99.0); MEAN PLATELET VOLUME 8.6 fL (7.9-10.8); MONOCYTES # (AUTO) 0.4 10^3/uL (0.0-1.0); NEUTROPHILS # (AUTO) 1.8 10^3/uL (1.5-6.6); NEUTROPHILS % (AUTO) 41.6 %; PLT - PLATELET COUNT 271 10^3/uL (130-450); RED BLOOD COUNT 4.54 10^6/uL (4.20-5.40); RED CELL DISTRIBUTION WIDTH 11.7 % (12.0-15.0); WHITE BLOOD COUNT 4.3 x10^3/uL (4.8-10.8)
[2019-11-22 07:15] LABS: ALBUMIN 4.7 g/dL (3.2-5.5); BILIRUBIN,TOTAL 1.1 mg/dL (0.2-1.0); CREATININE 0.8 mg/dL (0.4-1.0)
[2019-11-22] MEDS ORDERED: SUCRALFATE 1 GM/10 ML UDC PO STA (07:20)
[2019-11-22] MEDS ORDERED: POTASSIUM CHLOR 10 MEQ/100 ML 10 MEQ/100 ML BAG IV ONE (07:22)
[2019-11-22] MEDS ORDERED: POTASSIUM CHLORIDE 20 MEQ TABLET PO STA (07:22)
[2019-11-22 08:04] VITALS: BP 151/83
== END 2019-11-22 09:43 | disposition home or self-care (01) ==
LOC: ED 05:56
DX: E86.0 Dehydration (principal); E87.6 Hypokalemia; K29.00 Acute gastritis without bleeding; I45.81 Long QT syndrome
CPT/HCPCS: 36415; 80053; 83690; 84484; 85025; 93005; 96361; 96365; 99284; A9270

== ENCOUNTER 2019-12-05 07:30 | Outpatient (CLI) | payer MEDICARE, MEDICAID | END 2019-12-05 07:31 | disposition home or self-care (01) | LOC: LAB 07:30 | PROVIDERS: ATTEND Family Medicine | DX: E87.6 Hypokalemia (principal); K22.8 Other specified diseases of esophagus | CPT/HCPCS: 36415; 81599; 82088; 84132; 84244 ==

== ENCOUNTER 2019-12-13 00:50 | Emergency (ER) | payer MEDICARE, MEDICAID ==
--- NOTE | 2019-12-13 00:58 | ED Physician Documentation ---
History of Present Illness - Stated complaint Stated Complaint: THROAT PX/POST OP - History obtained from History obtained from: Patient (The patient is a 64-year-old female who had an EGD done yesterday by Dr. Lea Hastings, Because of the patient's dysphasia patient was dilated with a 50 [place] dilator. According to records she underwent a successful esophageal dilation. The patient's complaining of some left-sided neck pain anteriorly. She reports she is able to swallow but it hurts.She denies any swelling of the neck she denies any difficulty breathing she denies any drooling she denies any bleeding.) Review of Systems Constitutional: reports: Reviewed and negative Eyes: reports: Reviewed and negative Ears: reports: Reviewed and negative Nose: reports: Reviewed and negative Throat: reports: Sore throat, Other (dysphagia) Cardiac: reports: Reviewed and negative Respiratory: reports: Reviewed and negative GI: reports: Reviewed and negative : reports: Reviewed and negative Skin: reports: Reviewed and negative Musculoskeletal: reports: Reviewed and negative Neurologic: reports: Reviewed and negative Psychiatric: reports: Reviewed and negative Endocrine: reports: Reviewed and negative Immunocompromised: reports: Reviewed and negative PD PAST MEDICAL HISTORY - Past Medical History Cardiovascular: None Respiratory: None Neuro: Other Endocrine/Autoimmune: HyPOthyroidism GI: Hiatal hernia, Other 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 : None HEENT: Other Psych: Anxiety Musculoskeletal: None Derm: None - Past Surgical History Past Surgical History: Yes General: Hiatal hernia repair, EGD /SHIPPING/RECEIVING MANAGER: Breast reduction HEENT: Tonsil/Adenoidectomy - Present Medications Home Medications: Ambulatory Orders Medication Instructions Recorded Confirmed Cyclobenzaprine [Flexeril] 10 mg PO PRN PRN 12/15/14 02/01/17 Cholecalciferol (Vitamin D3) 1,000 unit PO DAILY 10/14/16 11/01/17 [Vitamin D3] Cyanocobalamin (Vitamin B-12) 1,000 mcg PO DAILY 10/14/16 02/01/17 [Vitamin B-12] Multiple Herbs 0 10/14/16 Red Marine Algae 0 10/14/16 Digestive 8/L.acidoph/Pectin 2 each PO DAILY #60 tablet 10/07/17 [Digestive Enzymes Tablet] Clotrimazole [Clotrimazole AF] 1 applic TP BID #28 gm 03/20/18 Amox/Clav 875/125 [Augmentin] 1 each PO Q12H #20 tablet 11/07/19 Mometasone Furoate [Nasonex] 1 spray NS BID #1 spray.pump 11/07/19 Lidocaine Viscous 2% [Xylocaine 5 ml PO Q4H PRN #100 ml 11/22/19 Viscous 2%] Sucralfate [Carafate] 1 gm PO ACHS #60 tablet 11/22/19 - Allergies Allergies/Adverse Reactions: Allergies Allergy/AdvReac Type Severity Reaction Status Date / Time lithium [[place]] Allergy Severe swelling Verified 12/13/19 01:00 albuterol Allergy Intermediate tachycardia Verified 12/13/19 01:00 hydromorphone HCl * Allergy Mild itchy Verified 12/13/19 01:00 [From Dilaudid] gluten Allergy Unknown Verified 12/13/19 01:00 - Social History Does the pt smoke?: No Smoking Status: Never smoker Does the pt drink ETOH?: No Does the pt have substance abuse?: Yes - Immunizations Immunizations are current?: Yes - POLST Patient has POLST: No PD ED PE NORMAL - Vitals Vital signs reviewed: Yes - General General: Alert and oriented X 3, No acute distress - HEENT HEENT: Atraumatic, PERRL, EOMI, Ears normal, Moist mucous membranes, Pharynx benign, Dentition benign, Other - Neck Neck: Supple, no meningeal sign, No bony TTP, No adenopathy, Thyroid normal, No JVD, No bruit, Other (Trachea midline there is no swelling, there is no crepitus there is mild tenderness between the left anterior sternocleidomastoid and the trachea the trachea is midline there is no thyromegaly there is no JVD and no carotid bruits there is no pulsatile mass there is no swelling or ecchymosis.) - Cardiac Cardiac: RRR, No murmur - Respiratory Respiratory: No respiratory distress, Clear bilaterally - Abdomen Abdomen: Normal bowel sounds, Soft, Non tender, Non distended - Derm Derm: Warm and dry - Extremities Extremities: No deformity - Neuro Neuro: Alert and oriented X 3 - Psych Psych: Normal mood, Normal affect Results - Vitals Vitals: Vital Signs - 24 hr 12/13/19 00:57 Temperature 36.5 C Heart Rate 94 Respiratory 17 Rate Blood Pressure 146/71 H O2 Saturation 98 Oxygen O2 Source Room air PD MEDICAL DECISION MAKING - ED course Complexity details: other (Postoperative pain from esophageal dilation.) Departure - Departure Disposition: 01 Home, Self Care Clinical Impression: Post-op pain Condition: Good Instructions: ED Post Op Pain Follow-Up: LEA PAIZ MD [Physician No Access] - 12/13/19
[2019-12-13 01:00] VITALS: BP 146/71
--- NOTE | 2019-12-13 02:06 | XRAY Report ---
Reason: post egd neck pain Procedure Date: 12/13/2019 Accession Number: [id number] / [id number] Procedure: XR - Neck Soft Tissue CPT Code: Final Report FULL RESULT: EXAM: SOFT TISSUE NECK RADIOGRAPHY EXAM DATE: 12/13/2019 01:50 AM. CLINICAL HISTORY: Post EGD neck pain. COMPARISONS: None. TECHNIQUE: 2 views. FINDINGS: Soft Tissues: No prevertebral soft tissue swelling or air. The epiglottis and aryepiglottic folds are unremarkable. No tonsillar or adenoidal enlargement. No radiopaque foreign body. Regional Skeleton: Mild degenerative changes of cervical spine, most prominent at C6-C7. Other: The visualized lung apices are clear. IMPRESSION: Unremarkable soft tissue neck radiography. [facility]
== END 2019-12-13 02:21 | disposition home or self-care (01) ==
LOC: ED 00:50
DX: G89.18 Other acute postprocedural pain (principal); R13.19 Other dysphagia; Z98.890 Other specified postprocedural states
CPT/HCPCS: 70360; 99283

== ENCOUNTER 2020-04-09 07:22 | Outpatient (CLI) | payer MEDICARE, MEDICAID ==
[2020-04-09 08:08] LABS: % IRON SATURATION 21 % (20-50); ALBUMIN 4.5 g/dL (3.2-5.5); ALBUMIN/GLOBULIN RATIO 2.1 (1.0-2.2); ALKALINE PHOSPHATASE 94 IU/L (42-121); ALT ALANINE AMINOTRANSFERASE 17 IU/L (10-60); AST ASPARTATE AMINOTRANSFERASE 24 IU/L (10-42); BILIRUBIN,TOTAL 0.7 mg/dL (0.2-1.0); BUN - BLOOD UREA NITROGEN 14 mg/dL (6-20); CALCIUM 9.1 mg/dL (8.5-10.3); CARBON DIOXIDE - CO2 25 mmol/L (21-32); CHLORIDE 104 mmol/L (101-111); CHOL/HDL RATIO 3.9 (<4.4); CHOLESTEROL 257 mg/dL; CREATININE 0.6 mg/dL (0.4-1.0); GLUCOSE 98 mg/dL (70-100); HDL CHOLESTEROL 66 mg/dL; IRON 72 ug/dL (28-170); LDL CHOLESTEROL,CALCULATED 156 mg/dL; LDL/HDL RATIO 2.4 (<4.4); SODIUM 139 mmol/L (135-145); TOTAL IRON BINDING CAPACITY 337 ug/dL (250-450); TOTAL PROTEIN 6.6 g/dL (6.7-8.2); TRANSFERRIN 241 mg/dL (192-382); VLDL CHOLESTEROL 35 mg/dL
[2020-04-09 08:17] LABS: BASOPHILS % (AUTO) 0.4 %; EOSINOPHILS # (AUTO) 0.1 10^3/uL (0.0-0.7); EOSINOPHILS % (AUTO) 1.3 %; HGB - HEMOGLOBIN 13.1 g/dL (12.0-16.0); LYMPHOCYTES # (AUTO) 2.4 10^3/uL (1.5-3.5); LYMPHOCYTES % (AUTO) 35.4 %; MEAN CORPUSCULAR HEMOGLOBIN 29.4 pg (27.0-31.0); MEAN CORPUSCULAR HGB CONC 33.7 g/dL (32.0-36.0); MEAN CORPUSCULAR VOLUME 87.2 fL (81.0-99.0); MEAN PLATELET VOLUME 8.8 fL (7.9-10.8); MONOCYTES # (AUTO) 0.7 10^3/uL (0.0-1.0); MONOCYTES % (AUTO) 10.6 %; NEUTROPHILS # (AUTO) 3.5 10^3/uL (1.5-6.6); NEUTROPHILS % (AUTO) 51.9 %; PLT - PLATELET COUNT 267 10^3/uL (130-450); RED BLOOD COUNT 4.46 10^6/uL (4.20-5.40); WHITE BLOOD COUNT 6.8 x10^3/uL (4.8-10.8)
[2020-04-09 08:19] LABS: THYROID STIMULATING HORMONE 2.59 uIU/mL (0.34-5.60)
[2020-04-09 08:21] LABS: FREE T3 2.79 pg/mL (2.5-3.9); FREE T4 (FREE THYROXINE) 0.73 ng/dL (0.58-1.64)
[2020-04-09 08:26] LABS: FERRITIN 74.2 ng/mL (11.0-306.8)
== END 2020-04-09 07:23 | disposition home or self-care (01) ==
LOC: LAB 07:22
PROVIDERS: ATTEND Family Medicine
DX: E72.12 Methylenetetrahydrofolate reductase deficiency (principal); E53.8 Deficiency of other specified B group vitamins; E61.1 Iron deficiency; E03.9 Hypothyroidism, unspecified; K58.0 Irritable bowel syndrome with diarrhea
CPT/HCPCS: 36415; 80053; 80061; 82728; 83540; 83721; 84432; 84439; 84443; 84466; 84481; 85025; 86800

== ENCOUNTER 2020-07-05 07:42 | Outpatient (CLI) | payer MEDICARE, MEDICAID ==
[2020-07-05 08:02] LABS: CALCIUM 9.2 mg/dL (8.5-10.3); CREATININE 0.8 mg/dL (0.4-1.0); MAGNESIUM 2.2 mg/dL (1.7-2.8)
== END 2020-07-05 07:43 | disposition home or self-care (01) ==
LOC: LAB 07:42
PROVIDERS: ATTEND Family Medicine
DX: E87.6 Hypokalemia (principal); R25.2 Cramp and spasm
CPT/HCPCS: 36415; 80048; 83735

== ENCOUNTER 2020-08-27 06:49 | Outpatient (CLI) | payer MEDICARE, MEDICAID ==
[2020-08-27] MEDS ORDERED: SINCALIDE 5 MCG VIAL ONE (10:22)
[2020-08-27] MEDS ORDERED: SODIUM CHLORIDE 0.9% IV ONE (10:56)
[2020-08-27] MEDS ORDERED: SINCALIDE IV ONE (10:56)
--- NOTE | 2020-08-27 12:22 | Nuclear Medicine Report ---
PROCEDURE: Hepatobiliary HIDA w/ Rx INDICATIONS: RUQ PAIN RADIOPHARMACEUTICAL: 5.1 mCi Tc-99m mebrofenin intravenously and 1.27 ?g sincalide intravenously TECHNIQUE: Following intravenous administration of Tc-99m mebrofenin, sequential anterior abdominal images were obtained through 60 minutes. To evaluate the contractile response of the gallbladder in response to Cholecystokinin (CCK), 1.27 microgram sincalide (0.02 ?g/kg) was administered by slow int ravenous infusion approximately 16 minutes after the administration of the radiopharmaceutical. Sequ ential imaging was continued for 30 minutes after the start of CCK infusion. Gallbladder ejection fr action was calculated. COMPARISON: None. FINDINGS: Biliary scan: There is normal tracer uptake and excretion by the liver. There is normal visualizati on of the intrahepatic ducts, common bile duct, and gallbladder. There is normal tracer transit into the duodenum. CCK stimulation: There is normal contractile response of the gallbladder to CCK infusion. The calcu lated gallbladder ejection fraction is 67%; normal values are above 35%. IMPRESSION: 1. Normal biliary imaging study. 2. Normal contractile response of gallbladder to CCK infusion.. Reviewed by: Cody Archer MD on 08/27/2020 12:20 PM PDT Approved by: Cody Archer MD on 08/27/2020 12:20 PM PDT Station ID: [id number]
--- NOTE | 2020-08-27 13:22 | Ultrasound Report ---
PROCEDURE: Abdomen Complete INDICATIONS: EPIGASTRIC PX TECHNIQUE: Real-time scanning was performed of the abdominal and retroperitoneal organs, with image documentatio n. COMPARISON: None. FINDINGS: Liver: The liver demonstrates diffusely increased hepatic echotexture without focal intrahepatic abno rmalities. Findings may be compatible with diffuse hepatic steatosis or sequela of chronic hepatocell ular disease. Liver is normal in size. Gallbladder: Gallbladder is normal in appearance without gallstones, gallbladder wall thickening, or pericholecystic fluid. Negative sonographic Evangelista's sign. Biliary ducts: Intrahepatic bile ducts are non-dilated. Extrahepatic bile duct caliber measures 4 m m. Normal is 6-7 mm or less in diameter, or 10 mm or less post-cholecystectomy. Pancreas: Visualized portions of the pancreas are sonographically normal. Spleen: Spleen is normal in size and homogeneous in echotexture. Kidneys: Kidneys are normal in size and echotexture. Right kidney measures 10.3 cm long; left kidne y measures 10.1 cm long. No hydronephrosis or nephrolithiasis. No solid masses. Aorta: Visualized aorta is normal in caliber at less than 3 cm. Scattered atherosclerotic plaques s een throughout the abdominal aorta. No abdominal aneurysm seen. Proximal abdominal aorta measures up to 2.3 cm in diameter. Iliacs: Proximal common iliac arteries are normal in caliber at less than 2.5 cm. IVC: Intrahepatic inferior vena cava is patent. Miscellaneous: No free abdominal fluid. IMPRESSION: 1. Diffuse hepatic steatosis versus chronic hepatocellular disease. Recommend correlation with liver function tests. 2. Atherosclerosis without aneurysmal dilatation of the abdominal aorta. Reviewed by: Aries Min MD on 08/27/2020 1:21 PM PDT Approved by: Aries Min MD on 08/27/2020 1:21 PM PDT Station ID: [id number]
== END 2020-08-27 06:50 | disposition home or self-care (01) ==
LOC: DI 06:49
PROVIDERS: ATTEND Internal Medicine
DX: R93.5 Abnormal findings on diagnostic imaging of other abdominal regions, including retroperitoneum (principal); R10.13 Epigastric pain; R14.0 Abdominal distension (gaseous); R10.11 Right upper quadrant pain; I70.0 Atherosclerosis of aorta
CPT/HCPCS: 76700; 78227; J7040

== ENCOUNTER 2021-01-07 17:33 | Emergency (ER) | payer MEDICARE, MEDICAID ==
[2021-01-07 18:35] LABS: BASOPHILS % (AUTO) 0.4 %; EOSINOPHILS # (AUTO) 0.1 10^3/uL (0.0-0.7); EOSINOPHILS % (AUTO) 0.8 %; HGB - HEMOGLOBIN 13.5 g/dL (12.0-16.0); LYMPHOCYTES # (AUTO) 2.3 10^3/uL (1.5-3.5); LYMPHOCYTES % (AUTO) 31.6 %; MEAN CORPUSCULAR HEMOGLOBIN 30.8 pg (27.0-31.0); MEAN CORPUSCULAR HGB CONC 34.6 g/dL (32.0-36.0); MEAN CORPUSCULAR VOLUME 88.8 fL (81.0-99.0); MEAN PLATELET VOLUME 8.1 fL (7.9-10.8); MONOCYTES # (AUTO) 0.7 10^3/uL (0.0-1.0); MONOCYTES % (AUTO) 8.9 %; NEUTROPHILS # (AUTO) 4.3 10^3/uL (1.5-6.6); NEUTROPHILS % (AUTO) 58.2 %; PLT - PLATELET COUNT 277 10^3/uL (130-450); RED BLOOD COUNT 4.39 10^6/uL (4.20-5.40); RED CELL DISTRIBUTION WIDTH 11.9 % (12.0-15.0); WHITE BLOOD COUNT 7.3 x10^3/uL (4.8-10.8)
[2021-01-07 18:47] LABS: ALBUMIN 4.4 g/dL (3.2-5.5); BILIRUBIN,TOTAL 0.4 mg/dL (0.2-1.0); CALCIUM 9.5 mg/dL (8.5-10.3); CREATININE 0.7 mg/dL (0.4-1.0); POTASSIUM 3.4 mmol/L (3.5-5.0); TOTAL PROTEIN 6.6 g/dL (6.7-8.2)
[2021-01-07 19:07] LABS: BILIRUBIN,URINE NEGATIVE (NEGATIVE); GLUCOSE, URINE (UA) NEGATIVE (NEGATIVE); KETONES,URINE (UA) NEGATIVE (NEGATIVE); LEUKOCYTE ESTERASE, URINE NEGATIVE (NEGATIVE); NITRITE,URINE NEGATIVE (NEGATIVE); OCCULT BLOOD,URINE TRACE-INTA (NEGATIVE); PH,URINE 5.5 PH (5.0-7.5); PROTEIN,URINE NEGATIVE (NEGATIVE); UROBILINOGEN,URINE 0.2 (NORMAL) E.U./dL (NORMAL)
[2021-01-07 19:09] LABS: CLARITY,URINE CLEAR (CLEAR)
[2021-01-07] MEDS ORDERED: CHERRY SYRUP 10 ML UDC PO ONE (19:17)
[2021-01-07] MEDS ORDERED: KETOROLAC 30 MG/ML VIAL IM STA (19:17)
[2021-01-07] MEDS ORDERED: DEXAMETHASONE 10 MG/ML VIAL PO STA (19:17)
[2021-01-07] MEDS ORDERED: methocarbamoL 500 MG TABLET PO STA (19:18)
--- NOTE | 2021-01-07 19:58 | CT Report ---
PROCEDURE: HEAD WO INDICATIONS: headache TECHNIQUE: Noncontrast 4.5 mm thick angled axial sections acquired from the foramen magnum to the vertex. For r adiation dose reduction, the following was used: automated exposure control, adjustment of mA and/or kV according to patient size. COMPARISON: None. FINDINGS: Image quality: Excellent. CSF spaces: Basal cisterns are patent. No extra-axial fluid collections. Ventricles are normal in size and shape. Brain: No midline shift. No intracranial masses or hemorrhage. Balbuena-white matter interface is norm al. Skull and face: Calvarium and visualized facial bones are intact, without suspicious lesions. Left maxillary mucous retention cyst or polyp. IMPRESSION: No acute intracranial process. Reviewed by: Benjamín Huertas MD on 01/07/2021 7:57 PM [facility] Approved by: Benjamín Huertas MD on 01/07/2021 7:57 PM [facility] Station ID: [id number]
--- NOTE | 2021-01-07 20:00 | CT Report ---
PROCEDURE: CERVICAL SPINE WO INDICATIONS: neck pain TECHNIQUE: Noncontrast 3 mm thick sections acquired from the skull base to the T4 level. Sagittal and coronal r eformats were then constructed. For radiation dose reduction, the following was used: automated exp osure control, adjustment of mA and/or kV according to patient size. COMPARISON: None. FINDINGS: Image quality: Excellent. Bones: No fractures or dislocations. Scattered multilevel endplate spurring and diffuse facet arthro ld. Visualized superior ribs are intact. Soft tissues: Prevertebral soft tissues are normal in thickness. No paravertebral hematomas. No ap ical pneumothoraces. Bilateral maxillary sinus disease with mucous retention cysts versus polyps. IMPRESSION: No fracture Mild bilateral maxillary sinus disease Reviewed by: Benjamín Huertas MD on 01/07/2021 7:59 PM PST Approved by: Benjamín Huertas MD on 01/07/2021 7:59 PM PST Station ID: [id number]
--- NOTE | 2021-01-07 20:29 | ED Physician Documentation ---
PD HPI HEADACHE - Stated complaint Stated Complaint: LAMBERT,NUMBNESS - Chief complaint Chief Complaint: General - History obtained from History obtained from: Patient - History of Present Illness Timing - onset: How many days ago (3) Timing - onset during: Light activity Timing - duration: Days (3) Timing - details: Gradual onset, Still present Worst headache ever?: No: Worst headache ever? (has had occipital neuralgia in the past but had been doing better with it. Had increased neck pain and headache for the past 3 days.) Location: Back, Right Quality: Throbbing, Aching Associated symptoms: Nausea, Numbness (some tingling feeling right back and side of head.). No: Fever, Stiff neck, Vomiting, Weakness, Syncope, Vision changes Improved by: No: Rest Worsened by: No: Light, Noise Contributing factors: No: Hypertension, Recent illness, Trauma Similar symptoms before: Diagnosis (occipital neuralgia and FM in the past. The current pain is similar but a bit worse. No noted rash nor sores. Has some tenderness scalp right occipital area.) Recently seen: Not recently seen Review of Systems Constitutional: denies: Fever, Chills Nose: denies: Rhinorrhea / runny nose, Congestion Throat: denies: Sore throat Cardiac: denies: Chest pain / pressure, Palpitations Respiratory: denies: Cough GI: reports: Nausea. denies: Abdominal Pain, Vomiting Skin: denies: Rash, Lesions Neurologic: reports: Headache. denies: Focal weakness, Near syncope, Altered mental status, Head injury, LOC PD PAST MEDICAL HISTORY - Past Medical History Past Medical History: Yes Cardiovascular: None Respiratory: None Neuro: None, Other Endocrine/Autoimmune: HyPOthyroidism GI: Hiatal hernia, Other AQUATICS LIFEGUARD: None : None HEENT: Other Psych: Anxiety Musculoskeletal: None Derm: None - Past Surgical History Past Surgical History: Yes General: Hiatal hernia repair, EGD /AQUATICS LIFEGUARD: Breast reduction HEENT: Tonsil/Adenoidectomy - Present Medications Home Medications: Ambulatory Orders Medication Instructions Recorded Confirmed Cyclobenzaprine [Flexeril] 10 mg PO PRN PRN 12/15/14 02/01/17 Cholecalciferol (Vitamin D3) 1,000 unit PO DAILY 10/14/16 11/01/17 [Vitamin D3] Cyanocobalamin (Vitamin B-12) 1,000 mcg PO DAILY 10/14/16 02/01/17 [Vitamin B-12] Multiple Herbs 0 10/14/16 Red Marine Algae 0 10/14/16 Digestive 8/L.acidoph/Pectin 2 each PO DAILY #60 tablet 10/07/17 [Digestive Enzymes Tablet] Clotrimazole [Clotrimazole AF] 1 applic TP BID #28 gm 01/25/18 Amox/Clav 875/125 [Augmentin] 1 each PO Q12H #20 tablet 11/07/19 Mometasone Furoate [Nasonex] 1 spray NS BID #1 spray.pump 11/07/19 Lidocaine Viscous 2% [Xylocaine 5 ml PO Q4H PRN #100 ml 11/22/19 Viscous 2%] Sucralfate [Carafate] 1 gm PO ACHS #60 tablet 11/22/19 Cyclobenzaprine [Flexeril] 10 mg PO TID PRN #14 tablet 04/23/20 Oxycodone HCl/Acetaminophen 1 - 2 each PO Q6H PRN #10 tablet 04/23/20 [Percocet 5-325 mg Tablet] dexAMETHasone [Decadron] 4 mg PO DAILY #5 tablet 01/07/21 tiZANidine [Zanaflex] 4 mg PO Q8H PRN #25 tablet 01/07/21 - Allergies Allergies/Adverse Reactions: Allergies Allergy/AdvReac Type Severity Reaction Status Date / Time lithium [[place]] Allergy Severe swelling Verified 01/07/21 17:48 albuterol Allergy Intermediate tachycardia Verified 01/07/21 17:48 hydromorphone HCl * Allergy Mild itchy Verified 01/07/21 17:48 [From Dilaudid] gluten Allergy Unknown Verified 01/07/21 17:48 - Social History Does the pt smoke?: No Smoking Status: Never smoker Does the pt drink ETOH?: No Does the pt have substance abuse?: Yes - Immunizations Immunizations are current?: Yes - POLST Patient has POLST: No PD ED PE NORMAL - Vitals Vital signs reviewed: Yes - General General: Alert and oriented X 3, No acute distress, Well developed/nourished - HEENT HEENT: Moist mucous membranes, Pharynx benign - Neck Neck: Supple, no meningeal sign, No adenopathy, Other (tender right occipital ridge area. No redness, sores, rash. 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, No motor deficit, Normal speech Results - Vitals Vitals: Vital Signs - 24 hr 01/07/21 01/07/21 17:40 20:41 Temperature 37.9 C 36.8 C Heart Rate 115 H 85 Respiratory 18 16 Rate Blood Pressure 150/77 H 147/76 H O2 Saturation 96 96 Oxygen O2 Source Room air - Labs Labs: Laboratory Tests 01/07/21 01/07/21 01/07/21 18:27 18:27 18:27 WBC 7.3 RBC 4.39 Hgb 13.5 Hct 39.0 MCV 88.8 MCH 30.8 MCHC 34.6 RDW 11.9 L Plt Count 277 MPV 8.1 Neut # (Auto) 4.3 Lymph # (Auto) 2.3 [place] # (Auto) 0.7 Eos # (Auto) 0.1 Baso # (Auto) 0.0 Absolute Nucleated RBC 0.00 Nucleated RBC % 0.0 ESR 7 Sodium 138 Potassium 3.4 L Chloride 100 L Carbon Dioxide 26 Anion Gap 12.0 BUN 14 Creatinine 0.7 Estimated GFR (MDRD) 84 L Glucose 123 H Calcium 9.5 Total Bilirubin 0.4 AST 23 ALT 18 Alkaline Phosphatase 116 Total Protein 6.6 L Albumin 4.4 Globulin 2.2 Albumin/Globulin Ratio 2.0 Lipase 30 Urine Color Urine Clarity Urine pH Ur Specific [place] Urine Protein Urine Glucose (UA) Urine Ketones Urine Occult Blood Urine Nitrite Urine Bilirubin Urine Urobilinogen Ur Leukocyte Esterase Ur Microscopic Review Urine Culture Comments 01/07/21 18:58 WBC RBC Hgb Hct MCV MCH MCHC RDW Plt Count MPV Neut # (Auto) Lymph # (Auto) [place] # (Auto) Eos # (Auto) Baso # (Auto) Absolute Nucleated RBC Nucleated RBC % ESR Sodium Potassium Chloride Carbon Dioxide Anion Gap BUN Creatinine Estimated GFR (MDRD) Glucose Calcium Total Bilirubin AST ALT Alkaline Phosphatase Total Protein Albumin Globulin Albumin/Globulin Ratio Lipase Urine Color LT. YELLOW Urine Clarity CLEAR Urine pH 5.5 Ur Specific [place] <=1.005 Urine Protein NEGATIVE Urine Glucose (UA) NEGATIVE Urine Ketones NEGATIVE Urine Occult Blood TRACE-INTA Urine Nitrite NEGATIVE Urine Bilirubin NEGATIVE Urine Urobilinogen 0.2 (NORMAL) Ur Leukocyte Esterase NEGATIVE Ur Microscopic Review NOT INDICATED Urine Culture Comments NOT INDICATED - Rads (name of study) head CT Radiology: Prelim report reviewed (no acute process), Other cervical CT Radiology: Prelim report reviewed (some mild facet arthropathy. No fractures, acute process. ), See rad report PD MEDICAL DECISION MAKING - ED course Complexity details: considered differential (likely some occipital neuralgia. No rash yet, but consider early shingles. May have just neck strain from looking down at new phone part of the day. Doubt mass lesion or bone process, but can get CT. ), d/w patient (she is concerned about mass lesion back of head, given not just current headache but some occipital pain longer term. ) Departure - Departure Disposition: 01 Home, Self Care Clinical Impression: Occipital neuralgia of right side Neck strain Qualifiers: Encounter type: initial encounter Qualified Code(s): S16.1XXA - Strain of muscle, fascia and tendon at neck level, initial encounter Condition: Stable Record reviewed to determine appropriate education?: Yes Instructions: ED Neck Pain No Trauma Follow-Up: Summer Price DO [Primary Care Provider] - Prescriptions: dexAMETHasone [Decadron] 4 mg PO DAILY #5 tablet tiZANidine [Zanaflex] 4 mg PO Q8H PRN #25 tablet PRN Reason: Spasms Comments: Watch for develpment of any rash or skin sores that might suggest shingles. Otherwise will treat it as muscle irritation and nerve irritation of occipital nerve. Add Decadron daily for 5 days, anti-inflammatory. Can try Tizanidine muscle relaxant instead of current one to see if any different. Add oxycodone as needed for pains. Discharge Date/Time: 01/07/21 20:42
[2021-01-07 20:42] VITALS: BP 147/76
== END 2021-01-07 20:42 | disposition home or self-care (01) ==
LOC: ED 17:33
DX: M54.81 Occipital neuralgia (principal); S16.1XXA Strain of muscle, fascia and tendon at neck level, initial encounter; X50.1XXA Overexertion from prolonged static or awkward postures, initial encounter; Y93.89 Activity, other specified; R00.0 Tachycardia, unspecified; J32.0 Chronic maxillary sinusitis
CPT/HCPCS: 70450; 72125; 80053; 81003; 83690; 85025; 85651; 93005; 96372; 99284; A9270; 81001; 87086

== ENCOUNTER 2021-04-09 07:33 | Outpatient (CLI) | payer MEDICARE, MEDICAID ==
[2021-04-09 08:27] LABS: THYROID STIMULATING HORMONE 2.39 uIU/mL (0.34-5.60)
[2021-04-09 08:28] LABS: FREE T3 3.57 pg/mL (2.5-3.9)
[2021-04-09 08:29] LABS: FREE T4 (FREE THYROXINE) 0.71 ng/dL (0.58-1.64)
== END 2021-04-09 07:34 | disposition home or self-care (01) ==
LOC: LAB 07:33
PROVIDERS: ATTEND Family Medicine
DX: E03.9 Hypothyroidism, unspecified (principal)
CPT/HCPCS: 36415; 84439; 84443; 84481

== ENCOUNTER 2021-04-21 03:00 | Emergency (ER) | payer MEDICARE, MEDICAID ==
--- OUTSIDE RECORDS SUMMARY | 2021-04-21 03:04 | EXTERNAL MEDICAL SUMMARY RPT | Continuity of Care Document ---
:1955 Demographics Phone Unavailable Preferred Language Japanese Marital Status Unknown Druze Affiliation Unknown Race Unknown Ethnic Group Unknown Author Organization [facility] Address [address] [phone] Phone Care Team Providers Name Role Phone Albert Unavailable Unavailable Allergies Encounters Medications date description facility 20210303 Cyclobenzaprine hydrochloride 10 MG Ora l [facility] 20210303 Clonazepam 1 MG Oral Tablet [facility] pital Problems Procedures date description facility 20210404 [facility] 20210303 [facility] Results Vital Signs date measurement value source 20210303 weight_standard 70.76 lb 20210303 weight_metric 32.1 kg 20210303 height_standard 63.5 in 20210303 height_metric 161.29 cm 20210303 heart_rate 71 /min 20210303 BP_systolic 136 mm[Hg] 20210303 BP_diastolic 68 mm[Hg] 20210303 BMI 27.1 kg/m2 20210404 weight_standard 71.21 lb 20210404 weight_metric 32.3 kg 20210404 height_standard 63.5 in 20210404 height_metric 161.29 cm 20210404 heart_rate 67 /min 20210404 BP_systolic 140 mm[Hg] 20210404 BP_diastolic 64 mm[Hg] 20210404 BMI 27.3 kg/m2
--- OUTSIDE RECORDS SUMMARY | 2021-04-21 03:06 | EXTERNAL MEDICAL SUMMARY RPT | Continuity of Care Document ---
:1955 Demographics Phone Unavailable Preferred Language Kuwaiti Marital Status Unknown Episcopal Affiliation Unknown Race Unknown Ethnic Group Unknown Author Organization [facility] Address [address] [phone] Phone Care Team Providers Name Role Phone Albert Unavailable Unavailable Allergies Encounters Medications date description facility 20210303 Cyclobenzaprine hydrochloride 10 MG Ora l [facility] 20210303 Clonazepam 1 MG Oral Tablet [facility] pital Problems Procedures date description facility 20210404 [facility] 20210303 [facility] Results Vital Signs date measurement value source [...]
[2021-04-21] MEDS ORDERED: DEXAMETHASONE 10 MG/ML VIAL PO STA (03:38)
[2021-04-21] MEDS ORDERED: CHERRY SYRUP 10 ML UDC PO ONE (03:38)
[2021-04-21] MEDS ORDERED: KETOROLAC 60 MG/2 ML VIAL IM STA (03:38)
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
[2021-04-21 05:29] VITALS: BP 182/98
--- NOTE | 2021-04-21 08:13 | XRAY Report ---
PROCEDURE: Thoracic Spine 2 View INDICATIONS: Lower thoracic spine pain TECHNIQUE: 3 views of the thoracic spine were acquired. COMPARISON: 04/01/2018 FINDINGS: Bones: There is shallow central depression of the inferior T7 endplate which is new from 04/01/2018 ex am, but is age indeterminate otherwise. Remaining thoracic vertebral body heights are maintained. Nor mal alignment of the thoracic spine. No suspicious lytic or blastic osseous lesion. Partially visuali zed ribs are intact. Soft tissues: No paravertebral stripe thickening. Included portions of the lungs are clear IMPRESSION: Shallow central depression of the inferior T7 endplate is new from 04/01/2018 exam but is age-indeterm inate otherwise. Correlate for any point tenderness in this region to evaluate for acute component. C T or MRI of the thoracic spine would be helpful if there is concern for an acute compression fracture . Reviewed by: Cody Archer MD on 04/21/2021 8:12 AM PDT Approved by: Cody Archer MD on 04/21/2021 8:12 AM PDT Station ID: [id number]
== END 2021-04-21 05:28 | disposition home or self-care (01) ==
LOC: ED 03:00
DX: S22.060A Wedge compression fracture of T7-T8 vertebra, initial encounter for closed fracture (principal); X50.0XXA Overexertion from strenuous movement or load, initial encounter; Y93.89 Activity, other specified; M62.830 Muscle spasm of back
CPT/HCPCS: 72070; 96372; 99283; 99284; A9270

== ENCOUNTER 2021-05-05 15:22 | Emergency (ER) | payer MEDICARE, MEDICAID ==
--- NOTE | 2021-05-05 15:45 | XRAY Report ---
PROCEDURE: Chest 1 View X-Ray INDICATIONS: Chest pain TECHNIQUE: One view of the chest was acquired. COMPARISON: None FINDINGS: Surgical changes and devices: None. Lungs and pleura: No pleural effusions or pneumothorax. Lungs are clear. Mediastinum: Mediastinal contours appear normal. Heart size is normal. Bones and chest wall: No suspicious bony lesions. Overlying soft tissues appear unremarkable. IMPRESSION: No acute cardiopulmonary pathology. Reviewed by: Dima Padilla MD on 05/05/2021 3:44 PM PDT Approved by: Dima Padilla MD on 05/05/2021 3:44 PM PDT Station ID: [id number]
[2021-05-05 15:49] LABS: BASOPHILS % (AUTO) 0.3 %; EOSINOPHILS # (AUTO) 0.1 10^3/uL (0.0-0.7); EOSINOPHILS % (AUTO) 0.6 %; HCT - HEMATOCRIT 38.7 % (37.0-47.0); HGB - HEMOGLOBIN 13.5 g/dL (12.0-16.0); LYMPHOCYTES # (AUTO) 3.5 10^3/uL (1.5-3.5); LYMPHOCYTES % (AUTO) 30.9 %; MEAN CORPUSCULAR HEMOGLOBIN 30.3 pg (27.0-31.0); MEAN CORPUSCULAR HGB CONC 34.9 g/dL (32.0-36.0); MEAN PLATELET VOLUME 8.2 fL (7.9-10.8); MONOCYTES # (AUTO) 1.2 10^3/uL (0.0-1.0); MONOCYTES % (AUTO) 10.5 %; NEUTROPHILS # (AUTO) 6.6 10^3/uL (1.5-6.6); NEUTROPHILS % (AUTO) 57.4 %; PLT - PLATELET COUNT 282 10^3/uL (130-450); RED BLOOD COUNT 4.45 10^6/uL (4.20-5.40); RED CELL DISTRIBUTION WIDTH 11.9 % (12.0-15.0); WHITE BLOOD COUNT 11.5 x10^3/uL (4.8-10.8)
[2021-05-05 16:05] LABS: ALBUMIN 4.7 g/dL (3.2-5.5); ALBUMIN/GLOBULIN RATIO 2.4 (1.0-2.2); BILIRUBIN,TOTAL 0.8 mg/dL (0.2-1.0); CALCIUM 9.6 mg/dL (8.5-10.3); CREATININE 0.9 mg/dL (0.4-1.0); POTASSIUM 3.4 mmol/L (3.5-5.0); TOTAL PROTEIN 6.7 g/dL (6.7-8.2)
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
[2021-05-05] MEDS ORDERED: SODIUM CHLORIDE 0.9% 1,000 ML IV STA (17:27)
[2021-05-05 17:45] VITALS: BP 147/70
== END 2021-05-05 17:48 | disposition home or self-care (01) ==
LOC: ED 15:22
DX: R07.89 Other chest pain (principal); R60.0 Localized edema; I49.3 Ventricular premature depolarization; M48.54XD Collapsed vertebra, not elsewhere classified, thoracic region, subsequent encounter for fracture with routine healing
CPT/HCPCS: 36415; 80053; 83690; 84484; 85025; 85379; 93005; 99284

== ENCOUNTER 2022-03-17 12:35 | Outpatient (CLI) | payer MEDICARE, MEDICAID ==
--- NOTE | 2022-03-17 16:48 | XRAY Report ---
PROCEDURE: Ankle 3 View LT INDICATIONS: ANKLE PAIN TECHNIQUE: 3 views of the ankle were acquired. COMPARISON: None FINDINGS: Bones: No fractures or dislocations. Ankle mortise is normally aligned. No suspicious bony lesions . Soft tissues: No tibiotalar joint effusion. Achilles tendon appears normal. IMPRESSION: No visualized acute fracture or dislocation. However, occult injury cannot be excluded. Recommend short interval imaging follow-up in 7-10 days as clinically indicated for additional evalua tion. Reviewed by: Nataliya Garcia MD on 03/17/2022 4:47 PM PDT Approved by: Nataliya Garcia MD on 03/17/2022 4:47 PM PDT Station ID: [id number]
== END 2022-03-17 12:36 | disposition home or self-care (01) ==
LOC: DI 12:35
PROVIDERS: ATTEND Physician Assistant
DX: M25.572 Pain in left ankle and joints of left foot (principal)

== ENCOUNTER 2023-01-01 11:15 | Emergency (ER) | payer MEDICARE, MEDICAID ==
[2023-01-01] MEDS ORDERED: KETOROLAC 60 MG/2 ML VIAL IM STA (11:46)
--- NOTE | 2023-01-01 11:48 | ED Physician Documentation ---
History of Present Illness - Stated complaint Stated Complaint: R FOOT INJ/L SHLDR PX - Chief complaint Chief Complaint: Trauma Ext - History obtained from History obtained from: Patient - Additonal information Additional information: 67-year-old woman with pernicious anemia and subsequently lower extremity neuropathy was 2-3 steps up on a ladder and slipped and fell. Initially hit her left shoulder which is mildly painful but then landed on the right leg which is much more painful about the foot radiating up to the hip. No head injury or loss of consciousness. Not anticoagulated. No neck pain. 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 PAINT: Breast reduction HEENT: Tonsil/Adenoidectomy - Present Medications Home Medications: Ambulatory Orders Medication Instructions Recorded Confirmed Cyclobenzaprine [Flexeril] 10 mg PO PRN PRN 12/15/14 05/05/21 Cholecalciferol (Vitamin D3) 1,000 unit PO DAILY 10/14/16 05/05/21 [Vitamin D3] Cyanocobalamin (Vitamin B-12) 1,000 mcg PO DAILY 10/14/16 05/05/21 [Vitamin B-12] Red Marine Algae 0 10/14/16 Cyclobenzaprine [Flexeril] 10 mg PO TID PRN #14 tablet 04/23/20 05/05/21 tiZANidine [Zanaflex] 4 mg PO Q8H PRN #25 tablet 01/07/21 05/05/21 clonazePAM [Clonazepam] 1 tab PO DAILY 05/05/21 05/05/21 Acetaminophen/Cod 300/30 [Tylenol 1 each PO Q4-6H PRN #30 tablet 01/01/23 #3] - Allergies Allergies/Adverse Reactions: Allergies Allergy/AdvReac Type Severity Reaction Status Date / Time lithium [[place]] Allergy Severe swelling Verified 01/01/23 11:28 albuterol Allergy Intermediate tachycardia Verified 01/01/23 11:28 hydromorphone HCl * Allergy Mild itchy Verified 01/01/23 11:28 [From Dilaudid] gluten Allergy Unknown Verified 01/01/23 11:28 peanut Allergy Unknown Verified 01/01/23 11:28 sesame seed Allergy Unknown Verified 01/01/23 11:28 wheat Allergy Unknown Verified 01/01/23 11:28 hydrocodone AdvReac Itching Verified 01/01/23 11:28 oxycodone AdvReac Itching Verified 01/01/23 11:28 dairy Allergy Unknown Uncoded 01/01/23 11:28 - Social History Does the pt smoke?: No Smoking Status: Never smoker Does the pt drink ETOH?: No Does the pt have substance abuse?: Yes - Immunizations Immunizations are current?: Yes - POLST Patient has POLST: No PD ED PE NORMAL - Vitals Vital signs reviewed: Yes - General General: Alert and oriented X 3, No acute distress - HEENT HEENT: PERRL, EOMI - Neck Neck: Supple, no meningeal sign, No bony TTP, C-Spine cleared by NEXUS criteria - Respiratory Respiratory: Clear bilaterally - Abdomen Abdomen: Non tender - Back Back: No spinal TTP - Extremities Extremities: Other (Mild tenderness about the right hip but able to internally externally rotate without pain. She has pain of the left shoulder with extreme lifting and mild tenderness. But relatively good range of motion. Diffuse tenderness about the proximal forefoot on the right. Good pedal pulses and sensation) - Neuro Neuro: Alert and oriented X 3, No motor deficit, No sensory deficit, Normal speech Eye Opening: Spontaneous Motor: Obeys Commands Verbal: Oriented GCS Score: 15 Results - Vitals Vitals: Vital Signs - 24 hr 01/01/23 01/01/23 11:23 14:33 Temperature 37.1 C 36.6 C Heart Rate 115 H 72 Respiratory 16 14 Rate Blood Pressure 146/71 H 143/54 H O2 Saturation 98 100 Oxygen O2 Source Room air - Rads (name of study) Three-view x-ray of the right ankle demonstrates a likely tibiotalar joint effusion without fracture Radiology: Final report received, EMP read indepedently X-ray of the right hip and pelvis and left shoulder are negative. Radiology: Final report received, EMP read indepedently X-ray of the right foot demonstrates possible calcaneal fracture. Radiology: Final report received, EMP read indepedently (I also wonder if there is a proximal fifth metatarsal fracture) CT of the lower extremity demonstrates an impacted calcaneal fracture. Mottled appearance of the bone concerning for osteopenia versus metabolic diso Radiology: Final report received, EMP read indepedently Procedures - Splint (location) - Minor She was placed in a bulky Neil splint with multiple layers of cotton and Manish wrap's for immobilization. Right lower extremity, short leg Splint applied by: Physician Medical Decision Making - ED course ED course: 67-year-old woman presents with a fall from a ladder and found to have a right calcaneus fracture. Remainder of her imaging was negative. She was placed in a bulky Neil splint and discussed Ortho follow-up. She has crutches and knee scooter at home. Departure - Departure Disposition: Home, Self Care Clinical Impression: Right calcaneal fracture Qualifiers: Encounter type: initial encounter Calcaneus location: body Fracture type: closed Fracture alignment: displaced Qualified Code(s): S92.011A - Displaced fracture of body of right calcaneus, initial encounter for closed fracture Contusion of right hip Qualifiers: Encounter type: initial encounter Qualified Code(s): S70.01XA - Contusion of right hip, initial encounter Contusion of right shoulder Qualifiers: Encounter type: initial encounter Qualified Code(s): S40.011A - Contusion of right shoulder, initial encounter Fall from ladder Qualifiers: Encounter type: initial encounter Qualified Code(s): W11.XXXA - Fall on and from ladder, initial encounter Condition: Good Record reviewed to determine appropriate education?: Yes Instructions: ED Fx Foot Follow-Up: Orthopedic Care [Provider Group] Prescriptions: Acetaminophen/Cod 300/30 [Tylenol #3] 1 each PO Q4-6H PRN #30 tablet PRN Reason: Pain Comments: You should follow-up with the orthopedic clinic regarding the calcaneus fracture. Thankfully you already have crutches and knee scooter at home. I sent a prescription for Tylenol 3 to the [facility] pharmacy here in town. If you need a "lift assist" from the fire departments, you can call the [facility] emergency services nonemergency line at [phone]. Call the orthopedic office on Wednesday for the next available appointment. Until then elevate foot is much as possible, do not walk or bear weight on it. I am prescribing a short course of narcotic pain medication for you. These are potentially dangerous and addictive medications that should be used carefully. These medications may constipate you. Take an axqh-[id number] stool softener (docusate) twice daily with plenty of water while taking these medications. If you go 24 hours without a bowel movement, take [id number] miralax, per package instructions. Do not drink or drive while taking these medications. If you received narcotic or sedating medications while in the emergency department, do not drive for 24 hours. Store this medication in a safe, secure place and out of reach of children. It is a violation of federal law to give or sell this medication to another rson or to use in a manner other than prescribed. The ED will not refill narcotic prescriptions, including prescriptions lost or stolen. To dispose of unwanted medications: 1. [facility] [address] in [place] has a medication drop box. They accept prescription medications (in pill form) Wednesday through Wednesday 9:00 a.m. to 5:00 p.m. 2. The [facility] accepts prescription medications (in pill form only) for disposal year round. Call for more information. 3. Contact the [facility] for the next [facility] sponsored prescription drug collection event. , [phone], or [phone]; Note that many narcotic pain relievers also contain Tylenol/acetaminophen. Please ensure that your total dose of acetaminophen from all sources does not exceed 3 g (3000 mg) per day. Discharge Date/Time: 01/01/23 15:00
--- NOTE | 2023-01-01 12:28 | XRAY Report ---
PROCEDURE: Ankle 3 View RT INDICATIONS: Fall from ladder with shoulder and leg injuries TECHNIQUE: 3 views of the ankle were acquired. COMPARISON: None FINDINGS: Bones: Generalized decreased osseous mineralization present No fractures or dislocations. Ankle mor tise is normally aligned. No suspicious bony lesions. Soft tissues: Probable tibiotalar joint effusion noted. Achilles tendon appears normal. IMPRESSION: Probable tibiotalar joint effusion without evidence of fracture. Osteopenia Reviewed by: Jude Meneses MD on 01/01/2023 11:27 AM [facility] Approved by: Jude Meneses MD on 01/01/2023 11:27 AM [facility] Station ID: [id number]
--- NOTE | 2023-01-01 12:32 | XRAY Report ---
PROCEDURE: Foot 3 View RT INDICATIONS: Fall from ladder with shoulder and leg injuries TECHNIQUE: 3 views of the foot were acquired. COMPARISON: None FINDINGS: Bones: There is trabecular irregularity in the calcaneus. Generalized decreased osseous mineralizatio n present. Possible tibiotalar joint effusion Soft tissues: No tibiotalar joint effusion. Achilles tendon appears normal. IMPRESSION: Possible calcaneal nondisplaced fracture. Consider follow-up CT or MRI evaluation Reviewed by: Jude Meneses MD on 01/01/2023 11:31 AM [facility] Approved by: Jude Meneses MD on 01/01/2023 11:31 AM [facility] Station ID: [id number]
--- NOTE | 2023-01-01 12:35 | XRAY Report ---
PROCEDURE: Hip w/Pelvis 2-3V RT INDICATIONS: Fall from ladder with shoulder and leg injuries TECHNIQUE: AP pelvis with lateral view(s) of the right hip(s). COMPARISON: None. FINDINGS: Bones: No fractures or dislocations. Pelvic ring appears intact. No suspicious bony lesions. Soft tissues: The visualized bowel gas pattern is normal. No suspicious soft tissue calcifications. IMPRESSION: Unremarkable pelvis and right hip radiographs Reviewed by: Jude Meneses MD on 01/01/2023 11:34 AM [facility] Approved by: Jude Meneses MD on 01/01/2023 11:34 AM [facility] Station ID: [id number]
--- OUTSIDE RECORDS SUMMARY | 2023-01-01 12:38 | EXTERNAL MEDICAL SUMMARY RPT | Continuity of Care Document ---
:1955 Author Organization [facility] Address [address] [place] [address] Phone Care Team Providers Name Role Phone Summer Price Unavailable Unavailable Allergies and Intolerances date description facility type (no date) [facility] (unknown) Encounters No information. Functional Status No information. Immunizations No information. Medications date description facility 2022-11-17 00:00 Acetaminophen-Codeine [facility] Problems date description facility 2022-11-17 00:00 Post viral syndrome [facility] Procedures No information. Results/Labs test date author facility value unit interpret ation Result panel 1 (unknown) (no (unknown) (unknown) (no value) (units (unk nown) date) unknown) (unknown) (no (unknown) (unknown) [id number] (units (unkn own) date) unknown) (unknown) (no (unknown) (unknown) 11/11/22 (units (unkno wn) date) unknown) (unknown) (no (unknown) (unknown) Age/Sex: 67 / F (units (unknown) date) Date of Service: unknown) (unknown) (no (unknown) (unknown) Allergies (units (unkn own) date) unknown) (unknown) (no (unknown) (unknown) [place], [place] (units ( unknown) date) [id number] unknown) (unknown) (no (unknown) (unknown) Attending Dr: (units ( unknown) date) Laura Parikh D.O. unknown) (unknown) (no (unknown) (unknown) DAIRY Allergy (units ( unknown) date) (Intermediate, unknown) Uncoded 09/15/22 10:25) (unknown) (no (unknown) (unknown) : 1955 (units (unknown) date) Acct:[id number] unknown) (unknown) (no (unknown) (unknown) Dept at (units (unkno wn) date) . unknown) (unknown) (no (unknown) (unknown) Documented By: (units (unknown) date) Laura Parikh D.O. unknown) 11/11/22 1254 (unknown) (no (unknown) (unknown) Draft (units (unkno wn) date) unknown) (unknown) (no (unknown) (unknown) [facility] ([facility]) (unknown) (no (unknown) (unknown) Hives (units (unkno wn) date) unknown) (unknown) (no (unknown) (unknown) 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) unknown) (unknown) (no (unknown) (unknown) Intake performed (units (unknown) date) by: unknown) Charo Hale (unknown) (no (unknown) (unknown) Intake (units (unkno wn) date) unknown) (unknown) (no (unknown) (unknown) Intake- Clincial (units (unknown) date) Staff unknown) (unknown) (no (unknown) (unknown) Last Menstural (units (unknown) date) Cycle + Details unknown) (unknown) (no (unknown) (unknown) Loc: [facility] (units (unkno wn) date) unknown) (unknown) (no (unknown) (unknown) Nurse Office (units (u nknown) date) Visit unknown) (unknown) (no (unknown) (unknown) Other Menstrual (units (unknown) date) Period: unknown) Postmenopausal (unknown) (no (unknown) (unknown) Patient: (units (unkno wn) date) Whitley Oakes unknown) MR#: M (unknown) (no (unknown) (unknown) Reason For Visit (units (unknown) date) unknown) (unknown) (no (unknown) (unknown) SWELLING (units (unkno wn) date) unknown) (unknown) (no (unknown) (unknown) Signed By: (units (unk nown) date) unknown) (unknown) (no (unknown) (unknown) Smoking Status: (units (unknown) date) Former smoker unknown) (unknown) (no (unknown) (unknown) This note may (units ( unknown) date) have been all or unknown) partially generated using voice recognition (unknown) (no (unknown) (unknown) Tobacco Status (units (unknown) date) unknown) (unknown) (no (unknown) (unknown) Visit Reasons: (units (unknown) date) B12 shot unknown) (unknown) (no (unknown) (unknown) albuterol (units (unkn own) date) [ALBUTEROL] unknown) Allergy (Unknown, Verified 09/15/22 10:25) (unknown) (no (unknown) (unknown) bladder pain (units (u nknown) date) unknown) (unknown) (no (unknown) (unknown) congestion and (units (unknown) date) stomach problems unknown) (unknown) (no (unknown) (unknown) dexamethasone (units ( unknown) date) Adverse Reaction unknown) (Severe, Unverified 09/15/22 10:25) (unknown) (no (unknown) (unknown) gluten [GLUTEN] (units (unknown) date) Allergy (Unknown, unknown) Verified 09/15/22 10:25) (unknown) (no (unknown) (unknown) grass pollen (units (u nknown) date) Allergy (Severe, unknown) Verified 09/15/22 10:25) (unknown) (no (unknown) (unknown) have occurred. (units (unknown) date) If there are any unknown) questions, please contact the Medical Records (unknown) (no (unknown) (unknown) hydromorphone (units ( unknown) date) [HYDROMORPHONE] unknown) Allergy (Mild, Verified 09/15/22 10:25) (unknown) (no (unknown) (unknown) lithium (units (unkno wn) date) [LITHIUM] Allergy unknown) (Unknown, Verified 09/15/22 10:25) (unknown) (no (unknown) (unknown) may occur. (units (unk nown) date) Occasional unknown) wrong-word or 'sound-alike' substitutions may have (unknown) (no (unknown) (unknown) occurred due to (units (unknown) date) the inherent unknown) limitations of voice recognition software. Please (unknown) (no (unknown) (unknown) read the note (units ( unknown) date) carefully and unknown) recognize, using context, where these substitutions (unknown) (no (unknown) (unknown) software. 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 errors (unknown) (no (unknown) (unknown) tachycardia (units (un known) date) unknown) Result panel 2 (unknown) (no (unknown) (unknown) (no value) (units (unk nown) date) unknown) (unknown) (no (unknown) (unknown) (1) Vitamin B (units ( unknown) date) deficiency: unknown) (unknown) (no (unknown) (unknown) [id number] (units (unkn own) date) unknown) (unknown) (no (unknown) (unknown) 11/11/22 (units (unkno wn) date) unknown) (unknown) (no (unknown) (unknown) 1,000 mcg IM right (units (unknown) date) deltoid [id number] unknown) 02/06/24 [id number] [facility] (unknown) (no (unknown) (unknown) Administered by: (units (unknown) date) Diana Hale, unknown) RN on 11/11/22 13:04 (unknown) (no (unknown) (unknown) Age/Sex: 67 / F (units (unknown) date) Date of Service: unknown) (unknown) (no (unknown) (unknown) Allergies (units (unkn own) date) unknown) (unknown) (no (unknown) (unknown) AMIE [place] (units ( unknown) date) [id number] unknown) (unknown) (no (unknown) (unknown) Attending Dr: Laura (units (unknown) date) Jl D.O. unknown) (unknown) (no (unknown) (unknown) Chief Complaint: (units (unknown) date) B-12 injection unknown) (unknown) (no (unknown) (unknown) Code(s): (units (unkno wn) date) unknown) (unknown) (no (unknown) (unknown) Comments: Pt (units (u nknown) date) tolerated well unknown) (unknown) (no (unknown) (unknown) DAIRY Allergy (units ( unknown) date) (Intermediate, unknown) Uncoded 09/15/22 10:25) (unknown) (no (unknown) (unknown) : 1955 (units (unknown) date) Acct:[id number] unknown) (unknown) (no (unknown) (unknown) Dept at (units (unkno wn) date) . unknown) (unknown) (no (unknown) (unknown) Documented By: (units (unknown) date) Laura Parikh D.O. unknown) 11/11/22 1254 (unknown) (no (unknown) (unknown) Dose Route Admin (units (unknown) date) Location Lot Number unknown) Expiration Date NDC (unknown) (no (unknown) (unknown) Draft (units (unkno wn) date) unknown) (unknown) (no (unknown) (unknown) E53.9 - Vitamin B (units (unknown) date) deficiency, unknown) unspecified (unknown) (no (unknown) (unknown) [facility]) (unknown) (no (unknown) (unknown) Hives (units (unkno wn) date) unknown) (unknown) (no (unknown) (unknown) 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) unknown) (unknown) (no (unknown) (unknown) Intake performed (units (unknown) date) by: unknown) Diana Hale (unknown) (no (unknown) (unknown) Intake (units (unkno wn) date) unknown) (unknown) (no (unknown) (unknown) Intake- Clincial (units (unknown) date) Staff unknown) (unknown) (no (unknown) (unknown) Last Menstural (units (unknown) date) Cycle + Details unknown) (unknown) (no (unknown) (unknown) Loc: [facility] (units (unkno wn) date) unknown) (unknown) (no (unknown) (unknown) 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) (unknown) (no (unknown) (unknown) Note (units (unkno wn) date) unknown) (unknown) (no (unknown) (unknown) Note: (units (unkno wn) date) unknown) (unknown) (no (unknown) (unknown) Nurse Office Visit (units (unknown) date) unknown) (unknown) (no (unknown) (unknown) Office Meds (units (un known) date) unknown) (unknown) (no (unknown) (unknown) Other Menstrual (units (unknown) date) Period: unknown) Postmenopausal (unknown) (no (unknown) (unknown) Patient: (units (unkno wn) date) Violette,Whitley D unknown) MR#: M (unknown) (no (unknown) (unknown) Performing (units (unk nown) date) Provider: Laura unknown) DO Jl (unknown) (no (unknown) (unknown) Pt presents for IM (units (unknown) date) injection of B-12. unknown) She had been expecting hydroxycobalamin (unknown) (no (unknown) (unknown) Reason For Visit (units (unknown) date) unknown) (unknown) (no (unknown) (unknown) SWELLING (units (unkno wn) date) unknown) (unknown) (no (unknown) (unknown) Signed By: (units (unk nown) date) unknown) (unknown) (no (unknown) (unknown) Smoking Status: (units (unknown) date) Former smoker unknown) (unknown) (no (unknown) (unknown) This note may have (units (unknown) date) been all or unknown) partially generated using voice recognition (unknown) (no (unknown) (unknown) Tobacco Status (units (unknown) date) unknown) (unknown) (no (unknown) (unknown) Visit Diagnosis (units (unknown) date) unknown) (unknown) (no (unknown) (unknown) Visit Reasons: B12 (units (unknown) date) shot unknown) (unknown) (no (unknown) (unknown) albuterol (units (unkn own) date) [ALBUTEROL] Allergy unknown) (Unknown, Verified 09/15/22 10:25) (unknown) (no (unknown) (unknown) bladder pain (units (u nknown) date) unknown) (unknown) (no (unknown) (unknown) congestion and (units (unknown) date) stomach problems unknown) (unknown) (no (unknown) (unknown) cyanocobalamin (units (unknown) date) (vitamin B-12) unknown) (unknown) (no (unknown) (unknown) dexamethasone (units ( unknown) date) Adverse Reaction unknown) (Severe, Unverified 09/15/22 10:25) (unknown) (no (unknown) (unknown) gluten [GLUTEN] (units (unknown) date) Allergy (Unknown, unknown) Verified 09/15/22 10:25) (unknown) (no (unknown) (unknown) grass pollen (units (u nknown) date) Allergy (Severe, unknown) Verified 09/15/22 10:25) (unknown) (no (unknown) (unknown) have occurred. If (units (unknown) date) there are any unknown) questions, please contact the Medical Records (unknown) (no (unknown) (unknown) her own medication (units (unknown) date) as she reports that unknown) she has had better results with that (unknown) (no (unknown) (unknown) hydromorphone (units ( unknown) date) [HYDROMORPHONE] unknown) Allergy (Mild, Verified 09/15/22 10:25) (unknown) (no (unknown) (unknown) lithium [LITHIUM] (units (unknown) date) Allergy (Unknown, unknown) Verified 09/15/22 10:25) (unknown) (no (unknown) (unknown) may occur. (units (unk nown) date) Occasional unknown) wrong-word or 'sound-alike' substitutions may have (unknown) (no (unknown) (unknown) occurred due to (units (unknown) date) the inherent unknown) limitations of voice recognition software. Please (unknown) (no (unknown) (unknown) other formulation (units (unknown) date) of B-12. unknown) (unknown) (no (unknown) (unknown) read the note (units ( unknown) date) carefully and unknown) recognize, using context, where these substitutions (unknown) (no (unknown) (unknown) software. 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 (unknown) (no (unknown) (unknown) tachycardia (units (un known) date) unknown) (unknown) (no (unknown) (unknown) which is not a (units (unknown) date) medication that we unknown) can get in clinic. In future she will provide Result panel 3 (unknown) (no (unknown) (unknown) (no value) (units (unk nown) date) unknown) (unknown) (no (unknown) (unknown) (1) Vitamin B (units ( unknown) date) deficiency: unknown) (unknown) (no (unknown) (unknown) [id number] (units (unkn own) date) unknown) (unknown) (no (unknown) (unknown) 11/11/22 1315 (units ( unknown) date) unknown) (unknown) (no (unknown) (unknown) 11/11/22 (units (unkno wn) date) unknown) (unknown) (no (unknown) (unknown) 1,000 mcg IM right (units (unknown) date) deltoid [id number] unknown) 02/06/24 [id number] [facility] (unknown) (no (unknown) (unknown) Administered by: (units (unknown) date) Diana Hale unknown) RN on 11/11/22 13:04 (unknown) (no (unknown) (unknown) Age/Sex: 67 / F (units (unknown) date) Date of Service: unknown) (unknown) (no (unknown) (unknown) Allergies (units (unkn own) date) unknown) (unknown) (no (unknown) (unknown) [place], [place] (units ( unknown) date) [id number] unknown) (unknown) (no (unknown) (unknown) Attending Dr: Laura (units (unknown) date) Jl D.O. unknown) (unknown) (no (unknown) (unknown) Chief Complaint: (units (unknown) date) B-12 injection unknown) (unknown) (no (unknown) (unknown) Code(s): (units (unkno wn) date) unknown) (unknown) (no (unknown) (unknown) Comments: Pt (units (u nknown) date) tolerated well unknown) (unknown) (no (unknown) (unknown) DAIRY Allergy (units ( unknown) date) (Intermediate, unknown) Uncoded 09/15/22 10:25) (unknown) (no (unknown) (unknown) : 1955 (units (unknown) date) Acct:[id number] unknown) (unknown) (no (unknown) (unknown) Dept at (units (unkno wn) date) . unknown) (unknown) (no (unknown) (unknown) Documented By: (units (unknown) date) Laura Parikh D.O. unknown) 11/11/22 1254 (unknown) (no (unknown) (unknown) Dose Route Admin (units (unknown) date) Location Lot Number unknown) Expiration Date NDC (unknown) (no (unknown) (unknown) E53.9 - Vitamin B (units (unknown) date) deficiency, unknown) unspecified (unknown) (no (unknown) (unknown) [facility] ([facility]) (unknown) (no (unknown) (unknown) Hives (units (unkno wn) date) unknown) (unknown) (no (unknown) (unknown) 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) unknown) (unknown) (no (unknown) (unknown) Intake performed (units (unknown) date) by: unknown) Diana Hale (unknown) (no (unknown) (unknown) Intake (units (unkno wn) date) unknown) (unknown) (no (unknown) (unknown) Intake- Clincial (units (unknown) date) Staff unknown) (unknown) (no (unknown) (unknown) Last Menstural (units (unknown) date) Cycle + Details unknown) (unknown) (no (unknown) (unknown) Loc: [facility] (units (unkno wn) date) unknown) (unknown) (no (unknown) (unknown) 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) (unknown) (no (unknown) (unknown) Note (units (unkno wn) date) unknown) (unknown) (no (unknown) (unknown) Note: (units (unkno wn) date) unknown) (unknown) (no (unknown) (unknown) Nurse Office Visit (units (unknown) date) unknown) (unknown) (no (unknown) (unknown) Office Meds (units (un known) date) unknown) (unknown) (no (unknown) (unknown) Other Menstrual (units (unknown) date) Period: unknown) Postmenopausal (unknown) (no (unknown) (unknown) Patient: (units (unkno wn) date) Whitley Oakes unknown) MR#: M (unknown) (no (unknown) (unknown) Performing (units (unk nown) date) Provider: Laura unknown) Weeks, DO (unknown) (no (unknown) (unknown) Pt presents for IM (units (unknown) date) injection of B-12. unknown) She had been expecting hydroxycobalamin (unknown) (no (unknown) (unknown) Reason For Visit (units (unknown) date) unknown) (unknown) (no (unknown) (unknown) SWELLING (units (unkno wn) date) unknown) (unknown) (no (unknown) (unknown) Signed By: (units (unk nown) date) <Electronically unknown) signed by Laura Parikh D.O.> (unknown) (no (unknown) (unknown) Signed (units (unkno wn) date) unknown) (unknown) (no (unknown) (unknown) Smoking Status: (units (unknown) date) Former smoker unknown) (unknown) (no (unknown) (unknown) This note may have (units (unknown) date) been all or unknown) partially generated using voice recognition (unknown) (no (unknown) (unknown) Tobacco Status (units (unknown) date) unknown) (unknown) (no (unknown) (unknown) Visit Diagnosis (units (unknown) date) unknown) (unknown) (no (unknown) (unknown) Visit Reasons: B12 (units (unknown) date) shot unknown) (unknown) (no (unknown) (unknown) albuterol (units (unkn own) date) [ALBUTEROL] Allergy unknown) (Unknown, Verified 09/15/22 10:25) (unknown) (no (unknown) (unknown) bladder pain (units (u nknown) date) unknown) (unknown) (no (unknown) (unknown) congestion and (units (unknown) date) stomach problems unknown) (unknown) (no (unknown) (unknown) cyanocobalamin (units (unknown) date) (vitamin B-12) unknown) (unknown) (no (unknown) (unknown) dexamethasone (units ( unknown) date) Adverse Reaction unknown) (Severe, Unverified 09/15/22 10:25) (unknown) (no (unknown) (unknown) gluten [GLUTEN] (units (unknown) date) Allergy (Unknown, unknown) Verified 09/15/22 10:25) (unknown) (no (unknown) (unknown) grass pollen (units (u nknown) date) Allergy (Severe, unknown) Verified 09/15/22 10:25) (unknown) (no (unknown) (unknown) have occurred. If (units (unknown) date) there are any unknown) questions, please contact the Medical Records (unknown) (no (unknown) (unknown) her own medication (units (unknown) date) as she reports that unknown) she has had better results with that (unknown) (no (unknown) (unknown) hydromorphone (units ( unknown) date) [HYDROMORPHONE] unknown) Allergy (Mild, Verified 09/15/22 10:25) (unknown) (no (unknown) (unknown) lithium [LITHIUM] (units (unknown) date) Allergy (Unknown, unknown) Verified 09/15/22 10:25) (unknown) (no (unknown) (unknown) may occur. (units (unk nown) date) Occasional unknown) wrong-word or 'sound-alike' substitutions may have (unknown) (no (unknown) (unknown) occurred due to (units (unknown) date) the inherent unknown) limitations of voice recognition software. Please (unknown) (no (unknown) (unknown) other formulation (units (unknown) date) of B-12. unknown) (unknown) (no (unknown) (unknown) read the note (units ( unknown) date) carefully and unknown) recognize, using context, where these substitutions (unknown) (no (unknown) (unknown) software. 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 (unknown) (no (unknown) (unknown) tachycardia (units (un known) date) unknown) (unknown) (no (unknown) (unknown) which is not a (units (unknown) date) medication that we unknown) can get in clinic. In future she will provide Result panel 4 (unknown) (no (unknown) (unknown) (no value) (units (unk nown) date) unknown) (unknown) (no (unknown) (unknown) [id number] (units (unkn own) date) unknown) (unknown) (no (unknown) (unknown) 11/17/22 (units (unkno wn) date) unknown) (unknown) (no (unknown) (unknown) Acute pain of (units ( unknown) date) left shoulder unknown) (unknown) (no (unknown) (unknown) Age/Sex: 67 / F (units (unknown) date) Date of Service: unknown) (unknown) (no (unknown) (unknown) Allergic (units (unkno wn) date) reaction to grass unknown) pollen (unknown) (no (unknown) (unknown) Allergic to cats (units (unknown) date) unknown) (unknown) (no (unknown) (unknown) Allergies (units (unkn own) date) unknown) (unknown) (no (unknown) (unknown) [place], [place] (units ( unknown) date) [id number] unknown) (unknown) (no (unknown) (unknown) Anesthesia (units (unk nown) date) unknown) (unknown) (no (unknown) (unknown) Angina pectoris (units (unknown) date) unknown) (unknown) (no (unknown) (unknown) Ankle pain, (units (un known) date) chronic (2013) unknown) (unknown) (no (unknown) (unknown) Ankle pain, (units (un known) date) chronic unknown) (unknown) (no (unknown) (unknown) Anxiety (units (unkno wn) date) unknown) (unknown) (no (unknown) (unknown) Attending Dr: (units ( unknown) date) Laura Parikh D.O. unknown) (unknown) (no (unknown) (unknown) Bipolar disorder (units (unknown) date) unknown) (unknown) (no (unknown) (unknown) Brain cancer (units (u nknown) date) unknown) (unknown) (no (unknown) (unknown) Cervical somatic (units (unknown) date) dysfunction unknown) (unknown) (no (unknown) (unknown) Chicken pox (units (un known) date) unknown) (unknown) (no (unknown) (unknown) Child Age: 34 Hx (units (unknown) date) of appendectomy unknown) (unknown) (no (unknown) (unknown) Child Age: 37 (units ( unknown) date) Penicillin unknown) allergy (unknown) (no (unknown) (unknown) Child Age: 46 (units ( unknown) date) Hay fever unknown) (unknown) (no (unknown) (unknown) 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 (unknown) (no (unknown) (unknown) Chronic (units (unkno wn) date) left-sided unknown) thoracic back pain (unknown) (no (unknown) (unknown) 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 () (unknown) (no (unknown) (unknown) Compression (units (un known) date) fracture of body unknown) of thoracic vertebra (-04/2021) (unknown) (no (unknown) (unknown) Cranial somatic (units (unknown) date) dysfunction unknown) (unknown) (no (unknown) (unknown) DAIRY Allergy (units ( unknown) date) (Intermediate, unknown) Uncoded 09/15/22 10:25) (unknown) (no (unknown) (unknown) : 1955 (units (unknown) date) Acct:[id number] unknown) (unknown) (no (unknown) (unknown) Depression (units (unk nown) date) (09/21/14) unknown) (unknown) (no (unknown) (unknown) Depression (units (unk nown) date) unknown) (unknown) (no (unknown) (unknown) Dept at (units (unkno wn) date) . unknown) (unknown) (no (unknown) (unknown) Documented By: (units (unknown) date) Laura Parikh D.O. unknown) 11/17/22 1441 (unknown) (no (unknown) (unknown) Draft (units (unkno wn) date) unknown) (unknown) (no (unknown) (unknown) Environmental (units ( unknown) date) allergies unknown) (unknown) (no (unknown) (unknown) Esophageal (units (unk nown) date) stricture unknown) (unknown) (no (unknown) (unknown) Esophagitis (units (un known) date) unknown) (unknown) (no (unknown) (unknown) Family History (units (unknown) date) (Updated 06/08/18 unknown) @ 12:37 by Raiba Jacob) (unknown) (no (unknown) (unknown) Family Practice (units (unknown) date) Office Visit unknown) (unknown) (no (unknown) (unknown) Fibromyalgia (units (u nknown) date) unknown) (unknown) (no (unknown) (unknown) [facility]units ([facility] date[facility] unknown) (unknown) (no (unknown) (unknown) Foot pain (2012) (units (unknown) date) unknown) (unknown) (no (unknown) (unknown) Gastropathy (units (un known) date) unknown) (unknown) (no (unknown) (unknown) Grandmother (units (un known) date) Diabetes mellitus unknown) (unknown) (no (unknown) (unknown) Hayfever (units (unkno wn) date) unknown) (unknown) (no (unknown) (unknown) Heart disease (units ( unknown) date) unknown) (unknown) (no (unknown) (unknown) Hemorrhoids (units (un known) date) unknown) (unknown) (no (unknown) (unknown) Hiatal hernia (units ( unknown) date) unknown) (unknown) (no (unknown) (unknown) High cholesterol (units (unknown) date) unknown) (unknown) (no (unknown) (unknown) History of (units (unk nown) date) diabetes mellitus unknown) (unknown) (no (unknown) (unknown) History of (units (unk nown) date) fundoplication unknown) (unknown) (no (unknown) (unknown) History of (units (unk nown) date) repair of hiatal unknown) hernia (11/2011) (unknown) (no (unknown) (unknown) History of (units (unk nown) date) tonsillectomy unknown) (1972) (unknown) (no (unknown) (unknown) Hives (units (unkno wn) date) unknown) (unknown) (no (unknown) (unknown) Hypertension (units (u nknown) date) unknown) (unknown) (no (unknown) (unknown) Hypothyroidism (units (unknown) date) unknown) (unknown) (no (unknown) (unknown) IBS (irritable (units (unknown) date) bowel syndrome) unknown) (unknown) (no (unknown) (unknown) 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) unknown) (unknown) (no (unknown) (unknown) Intake (units (unkno wn) date) unknown) (unknown) (no (unknown) (unknown) Last Menstural (units (unknown) date) Cycle + Details unknown) (unknown) (no (unknown) (unknown) Liver cancer (units (u nknown) date) unknown) (unknown) (no (unknown) (unknown) Loc: [facility] (units (unkno wn) date) unknown) (unknown) (no (unknown) (unknown) Lumbar facet (units (u nknown) date) arthropathy unknown) (2013) (unknown) (no (unknown) (unknown) Lumbar region (units ( unknown) date) somatic unknown) dysfunction (unknown) (no (unknown) (unknown) Lung cancer (units (un known) date) unknown) (unknown) (no (unknown) (unknown) Medical History (units (unknown) date) (Updated 09/08/22 unknown) @ 11:04 by Reinier Pettit DO) (unknown) (no (unknown) (unknown) Mother (units (unknown) date) Diabetes mellitus unknown) (unknown) (no (unknown) (unknown) Obesity (units (unkno wn) date) unknown) (unknown) (no (unknown) (unknown) Osteoarthritis (units (unknown) date) (2011) unknown) (unknown) (no (unknown) (unknown) 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 unknown) (unknown) (no (unknown) (unknown) Osteoporosis (units (u nknown) date) unknown) (unknown) (no (unknown) (unknown) Other Menstrual (units (unknown) date) Period: unknown) Postmenopausal (unknown) (no (unknown) (unknown) PFSH (units (unkno wn) date) unknown) (unknown) (no (unknown) (unknown) PTSD (units (unkno wn) date) (post-traumatic unknown) stress disorder) (unknown) (no (unknown) (unknown) Patient: (units (unkno wn) date) Whitley Oakes unknown) MR#: M (unknown) (no (unknown) (unknown) Pelvic somatic (units (unknown) date) dysfunction unknown) (unknown) (no (unknown) (unknown) Pernicious (units (unk nown) date) anemia unknown) (unknown) (no (unknown) (unknown) Personality (units (un known) date) disorder unknown) (unknown) (no (unknown) (unknown) 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) unknown) (unknown) (no (unknown) (unknown) Reason For Visit (units (unknown) date) unknown) (unknown) (no (unknown) (unknown) Right shoulder (units (unknown) date) pain unknown) (unknown) (no (unknown) (unknown) SWELLING (units (unkno wn) date) unknown) (unknown) (no (unknown) (unknown) Sacral region (units ( unknown) date) somatic unknown) dysfunction (unknown) (no (unknown) (unknown) Sacroiliitis (units (u nknown) date) (2012) unknown) (unknown) (no (unknown) (unknown) Seborrheic (units (unk nown) date) keratosis unknown) (unknown) (no (unknown) (unknown) Segmental and (units ( unknown) date) somatic unknown) dysfunction of abdomen and other regions (unknown) (no (unknown) (unknown) Signed By: (units (unk nown) date) unknown) (unknown) (no (unknown) (unknown) Sister (units (unknown) date) Diabetes mellitus unknown) (unknown) (no (unknown) (unknown) Smoking Status: (units (unknown) date) Former smoker unknown) (unknown) (no (unknown) (unknown) Status post (units (un known) date) colonoscopy unknown) (09/2019) (unknown) (no (unknown) (unknown) Status post (units (un known) date) endoscopy unknown) (12/2019) (unknown) (no (unknown) (unknown) Status post (units (un known) date) reduction unknown) mammoplasty (07/2010) (unknown) (no (unknown) (unknown) Stroke (units (unkno wn) date) unknown) (unknown) (no (unknown) (unknown) Substance abuse (units (unknown) date) unknown) (unknown) (no (unknown) (unknown) Surgical History (units (unknown) date) (Updated 01/18/20 unknown) @ 15:38 by Summer Price DO) (unknown) (no (unknown) (unknown) This note may (units ( unknown) date) have been all or unknown) partially generated using voice recognition (unknown) (no (unknown) (unknown) Thoracic region (units (unknown) date) somatic unknown) dysfunction (unknown) (no (unknown) (unknown) Tinnitus (units (unkno wn) date) unknown) (unknown) (no (unknown) (unknown) Tobacco + (units (unkn own) date) Substance Use unknown) (unknown) (no (unknown) (unknown) Tobacco Status (units (unknown) date) unknown) (unknown) (no (unknown) (unknown) Tubular adenoma (units (unknown) date) of colon unknown) (12/2014) (unknown) (no (unknown) (unknown) Visit Reasons: (units (unknown) date) [facility]) OMT (unknown) (no (unknown) (unknown) albuterol (units (unkn own) date) [ALBUTEROL] unknown) Allergy (Unknown, Verified 09/15/22 10:25) (unknown) (no (unknown) (unknown) bladder pain (units (u nknown) date) unknown) (unknown) (no (unknown) (unknown) congestion and (units (unknown) date) stomach problems unknown) (unknown) (no (unknown) (unknown) dexamethasone (units ( unknown) date) Adverse Reaction unknown) (Severe, Unverified 09/15/22 10:25) (unknown) (no (unknown) (unknown) gluten [GLUTEN] (units (unknown) date) Allergy (Unknown, unknown) Verified 09/15/22 10:25) (unknown) (no (unknown) (unknown) grass pollen (units (u nknown) date) Allergy (Severe, unknown) Verified 09/15/22 10:25) (unknown) (no (unknown) (unknown) have occurred. (units (unknown) date) If there are any unknown) questions, please contact the Medical Records (unknown) (no (unknown) (unknown) hydromorphone (units ( unknown) date) [HYDROMORPHONE] unknown) Allergy (Mild, Verified 09/15/22 10:25) (unknown) (no (unknown) (unknown) lithium (units (unkno wn) date) [LITHIUM] Allergy unknown) (Unknown, Verified 09/15/22 10:25) (unknown) (no (unknown) (unknown) may occur. (units (unk nown) date) Occasional unknown) wrong-word or 'sound-alike' substitutions may have (unknown) (no (unknown) (unknown) occurred due to (units (unknown) date) the inherent unknown) limitations of voice recognition software. Please (unknown) (no (unknown) (unknown) read the note (units ( unknown) date) carefully and unknown) recognize, using context, where these substitutions (unknown) (no (unknown) (unknown) software. 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 errors (unknown) (no (unknown) (unknown) tachycardia (units (un known) date) unknown) Result panel 5 (unknown) (no (unknown) (unknown) (no value) (units (unk nown) date) unknown) (unknown) (no (unknown) (unknown) [id number] (units (unkn own) date) unknown) (unknown) (no (unknown) (unknown) 11/17/22 (units (unkno wn) date) unknown) (unknown) (no (unknown) (unknown) 67 yo female (units (u nknown) date) presents today unknown) for [facility] follow from 11/04/22 for COVID (unknown) (no (unknown) (unknown) Accompanied by: (units (unknown) date) Self / Same As unknown) Patient (unknown) (no (unknown) (unknown) Acute pain of (units ( unknown) date) left shoulder unknown) (unknown) (no (unknown) (unknown) Age/Sex: 67 / F (units (unknown) date) Date of Service: unknown) (unknown) (no (unknown) (unknown) Allergic (units (unkno wn) date) reaction to grass unknown) pollen (unknown) (no (unknown) (unknown) Allergic to cats (units (unknown) date) unknown) (unknown) (no (unknown) (unknown) Allergies (units (unkn own) date) unknown) (unknown) (no (unknown) (unknown) [place], [place] (units ( unknown) date) [id number] unknown) (unknown) (no (unknown) (unknown) Anesthesia (units (unk nown) date) unknown) (unknown) (no (unknown) (unknown) Angina pectoris (units (unknown) date) unknown) (unknown) (no (unknown) (unknown) Ankle pain, (units (un known) date) chronic (2014) unknown) (unknown) (no (unknown) (unknown) Ankle pain, (units (un known) date) chronic unknown) (unknown) (no (unknown) (unknown) Anxiety (units (unkno wn) date) unknown) (unknown) (no (unknown) (unknown) Attending Dr: (units ( unknown) date) Laura Parikh D.O. unknown) (unknown) (no (unknown) (unknown) Bipolar disorder (units (unknown) date) unknown) (unknown) (no (unknown) (unknown) Brain cancer (units (u nknown) date) unknown) (unknown) (no (unknown) (unknown) Cervical somatic (units (unknown) date) dysfunction unknown) (unknown) (no (unknown) (unknown) Chicken pox (units (un known) date) unknown) (unknown) (no (unknown) (unknown) Child Age: 34 Hx (units (unknown) date) of appendectomy unknown) (unknown) (no (unknown) (unknown) Child Age: 37 (units ( unknown) date) Penicillin unknown) allergy (unknown) (no (unknown) (unknown) Child Age: 46 (units ( unknown) date) Hay fever unknown) (unknown) (no (unknown) (unknown) 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 (unknown) (no (unknown) (unknown) Chronic (units (unkno wn) date) left-sided unknown) thoracic back pain (unknown) (no (unknown) (unknown) 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 () (unknown) (no (unknown) (unknown) Compression (units (un known) date) fracture of body unknown) of thoracic vertebra () (unknown) (no (unknown) (unknown) Cranial somatic (units (unknown) date) dysfunction unknown) (unknown) (no (unknown) (unknown) DAIRY Allergy (units ( unknown) date) (Intermediate, unknown) Uncoded 09/15/22 10:25) (unknown) (no (unknown) (unknown) : 1955 (units (unknown) date) Acct:[id number] unknown) (unknown) (no (unknown) (unknown) Depression (units (unk nown) date) (09/21/14) unknown) (unknown) (no (unknown) (unknown) Depression (units (unk nown) date) unknown) (unknown) (no (unknown) (unknown) Dept at (units (unkno wn) date) . unknown) (unknown) (no (unknown) (unknown) Documented By: (units (unknown) date) Laura Parikh D.O. unknown) 11/17/22 1441 (unknown) (no (unknown) (unknown) Draft (units (unkno wn) date) unknown) (unknown) (no (unknown) (unknown) Environmental (units ( unknown) date) allergies unknown) (unknown) (no (unknown) (unknown) Esophageal (units (unk nown) date) stricture unknown) (unknown) (no (unknown) (unknown) Esophagitis (units (un known) date) unknown) (unknown) (no (unknown) (unknown) Experiences (units (un known) date) increase unknown) temperature ratings (Normally 96*F and reading 99*F most (unknown) (no (unknown) (unknown) Family History (units (unknown) date) (Updated 06/08/18 unknown) @ 12:37 by Rabia Jacob) (unknown) (no (unknown) (unknown) Family Practice (units (unknown) date) Office Visit unknown) (unknown) (no (unknown) (unknown) Fibromyalgia (units (u nknown) date) unknown) (unknown) (no (unknown) (unknown) [facility] ([facility] unknown) (unknown) (no (unknown) (unknown) Foot pain (2011) (units (unknown) date) unknown) (unknown) (no (unknown) (unknown) Gastropathy (units (un known) date) unknown) (unknown) (no (unknown) (unknown) Grandmother (units (un known) date) Diabetes mellitus unknown) (unknown) (no (unknown) (unknown) Hayfever (units (unkno wn) date) unknown) (unknown) (no (unknown) (unknown) Heart disease (units ( unknown) date) unknown) (unknown) (no (unknown) (unknown) Hemorrhoids (units (un known) date) unknown) (unknown) (no (unknown) (unknown) Hiatal hernia (units ( unknown) date) unknown) (unknown) (no (unknown) (unknown) High cholesterol (units (unknown) date) unknown) (unknown) (no (unknown) (unknown) History of (units (unk nown) date) diabetes mellitus unknown) (unknown) (no (unknown) (unknown) History of (units (unk nown) date) fundoplication unknown) (unknown) (no (unknown) (unknown) History of (units (unk nown) date) repair of hiatal unknown) hernia (11/2011) (unknown) (no (unknown) (unknown) History of (units (unk nown) date) tonsillectomy unknown) (1972) (unknown) (no (unknown) (unknown) Hives (units (unkno wn) date) unknown) (unknown) (no (unknown) (unknown) Hypertension (units (u nknown) date) unknown) (unknown) (no (unknown) (unknown) Hypothyroidism (units (unknown) date) unknown) (unknown) (no (unknown) (unknown) IBS (irritable (units (unknown) date) bowel syndrome) unknown) (unknown) (no (unknown) (unknown) 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) unknown) (unknown) (no (unknown) (unknown) Intake Note: (units (u nknown) date) unknown) (unknown) (no (unknown) (unknown) Intake (units (unkno wn) date) unknown) (unknown) (no (unknown) (unknown) Last Menstural (units (unknown) date) Cycle + Details unknown) (unknown) (no (unknown) (unknown) Liver cancer (units (u nknown) date) unknown) (unknown) (no (unknown) (unknown) Loc: [facility] (units (unkno wn) date) unknown) (unknown) (no (unknown) (unknown) Lumbar facet (units (u nknown) date) arthropathy unknown) (2013) (unknown) (no (unknown) (unknown) Lumbar region (units ( unknown) date) somatic unknown) dysfunction (unknown) (no (unknown) (unknown) Lung cancer (units (un known) date) unknown) (unknown) (no (unknown) (unknown) Medical History (units (unknown) date) (Updated 09/08/22 unknown) @ 11:04 by Reinier Pettit DO) (unknown) (no (unknown) (unknown) Mother (units (unknown) date) Diabetes mellitus unknown) (unknown) (no (unknown) (unknown) Obesity (units (unkno wn) date) unknown) (unknown) (no (unknown) (unknown) Osteoarthritis (units (unknown) date) (2012) unknown) (unknown) (no (unknown) (unknown) 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 unknown) (unknown) (no (unknown) (unknown) Osteoporosis (units (u nknown) date) unknown) (unknown) (no (unknown) (unknown) Other Menstrual (units (unknown) date) Period: unknown) Postmenopausal (unknown) (no (unknown) (unknown) PFSH (units (unkno wn) date) unknown) (unknown) (no (unknown) (unknown) PTSD (units (unkno wn) date) (post-traumatic unknown) stress disorder) (unknown) (no (unknown) (unknown) Patient: (units (unkno wn) date) Whitley Oakes unknown) MR#: M (unknown) (no (unknown) (unknown) Pelvic somatic (units (unknown) date) dysfunction unknown) (unknown) (no (unknown) (unknown) Pernicious (units (unk nown) date) anemia unknown) (unknown) (no (unknown) (unknown) Personality (units (un known) date) disorder unknown) (unknown) (no (unknown) (unknown) 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) unknown) (unknown) (no (unknown) (unknown) Reason For Visit (units (unknown) date) unknown) (unknown) (no (unknown) (unknown) Right shoulder (units (unknown) date) pain unknown) (unknown) (no (unknown) (unknown) SWELLING (units (unkno wn) date) unknown) (unknown) (no (unknown) (unknown) Sacral region (units ( unknown) date) somatic unknown) dysfunction (unknown) (no (unknown) (unknown) Sacroiliitis (units (u nknown) date) (2012) unknown) (unknown) (no (unknown) (unknown) Seborrheic (units (unk nown) date) keratosis unknown) (unknown) (no (unknown) (unknown) Segmental and (units ( unknown) date) somatic unknown) dysfunction of abdomen and other regions (unknown) (no (unknown) (unknown) Signed By: (units (unk nown) date) unknown) (unknown) (no (unknown) (unknown) Sister (units (unknown) date) Diabetes mellitus unknown) (unknown) (no (unknown) (unknown) Smoking Status: (units (unknown) date) Former smoker unknown) (unknown) (no (unknown) (unknown) Status post (units (un known) date) colonoscopy unknown) (09/2019) (unknown) (no (unknown) (unknown) Status post (units (un known) date) endoscopy unknown) (12/2019) (unknown) (no (unknown) (unknown) Status post (units (un known) date) reduction unknown) mammoplasty (07/2010) (unknown) (no (unknown) (unknown) Stroke (units (unkno wn) date) unknown) (unknown) (no (unknown) (unknown) Substance abuse (units (unknown) date) unknown) (unknown) (no (unknown) (unknown) Surgical History (units (unknown) date) (Updated 01/18/20 unknown) @ 15:38 by Summer Price DO) (unknown) (no (unknown) (unknown) This note may (units ( unknown) date) have been all or unknown) partially generated using voice recognition (unknown) (no (unknown) (unknown) Thoracic region (units (unknown) date) somatic unknown) dysfunction (unknown) (no (unknown) (unknown) Tinnitus (units (unkno wn) date) unknown) (unknown) (no (unknown) (unknown) Tobacco + (units (unkn own) date) Substance Use unknown) (unknown) (no (unknown) (unknown) Tobacco Status (units (unknown) date) unknown) (unknown) (no (unknown) (unknown) Tubular adenoma (units (unknown) date) of colon unknown) (12/2014) (unknown) (no (unknown) (unknown) Visit Reasons: (units (unknown) date) [facility]) OMT (unknown) (no (unknown) (unknown) [facility] unknown) due to fever and cough (unknown) (no (unknown) (unknown) albuterol (units (unkn own) date) [ALBUTEROL] unknown) Allergy (Unknown, Verified 09/15/22 10:25) (unknown) (no (unknown) (unknown) bladder pain (units (u nknown) date) unknown) (unknown) (no (unknown) (unknown) congestion and (units (unknown) date) stomach problems unknown) (unknown) (no (unknown) (unknown) dexamethasone (units ( unknown) date) Adverse Reaction unknown) (Severe, Unverified 09/15/22 10:25) (unknown) (no (unknown) (unknown) gluten [GLUTEN] (units (unknown) date) Allergy (Unknown, unknown) Verified 09/15/22 10:25) (unknown) (no (unknown) (unknown) grass pollen (units (u nknown) date) Allergy (Severe, unknown) Verified 09/15/22 10:25) (unknown) (no (unknown) (unknown) have occurred. (units (unknown) date) If there are any unknown) questions, please contact the Medical Records (unknown) (no (unknown) (unknown) hydromorphone (units ( unknown) date) [HYDROMORPHONE] unknown) Allergy (Mild, Verified 09/15/22 10:25) (unknown) (no (unknown) (unknown) lithium (units (unkno wn) date) [LITHIUM] Allergy unknown) (Unknown, Verified 09/15/22 10:25) (unknown) (no (unknown) (unknown) may occur. (units (unk nown) date) Occasional unknown) wrong-word or 'sound-alike' substitutions may have (unknown) (no (unknown) (unknown) nights) (units (unkno wn) date) unknown) (unknown) (no (unknown) (unknown) occurred due to (units (unknown) date) the inherent unknown) limitations of voice recognition software. Please (unknown) (no (unknown) (unknown) read the note (units ( unknown) date) carefully and unknown) recognize, using context, where these substitutions (unknown) (no (unknown) (unknown) software. 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 errors (unknown) (no (unknown) (unknown) tachycardia (units (un known) date) unknown) Result panel 6 (unknown) (no (unknown) (unknown) (no value) (units (unk nown) date) unknown) (unknown) (no (unknown) (unknown) [id number] (units (unkn own) date) unknown) (unknown) (no (unknown) (unknown) 11/17/22 (units (unkno wn) date) unknown) (unknown) (no (unknown) (unknown) 11/17/22] (units (unkn own) date) unknown) (unknown) (no (unknown) (unknown) 12/26/17 [History (units (unknown) date) Confirmed 11/17/22] unknown) (unknown) (no (unknown) (unknown) 03/25/22 [Rx (units (u nknown) date) Confirmed 11/17/22] unknown) (unknown) (no (unknown) (unknown) 04/25/21 [Rx (units (u nknown) date) Confirmed 11/17/22] unknown) (unknown) (no (unknown) (unknown) 14:53 (units (unkno wn) date) unknown) (unknown) (no (unknown) (unknown) 67 yo female (units (u nknown) date) presents today for unknown) [facility] follow from 11/04/22 for COVID (unknown) (no (unknown) (unknown) Accompanied by: (units (unknown) date) Self / Same As unknown) Patient (unknown) (no (unknown) (unknown) Acute pain of left (units (unknown) date) shoulder unknown) (unknown) (no (unknown) (unknown) Age/Sex: 67 / F (units (unknown) date) Date of Service: unknown) (unknown) (no (unknown) (unknown) Allergic reaction (units (unknown) date) to grass pollen unknown) (unknown) (no (unknown) (unknown) Allergic to cats (units (unknown) date) unknown) (unknown) (no (unknown) (unknown) Allergies (units (unkn own) date) unknown) (unknown) (no (unknown) (unknown) [place], [place] (units ( unknown) date) [id number] unknown) (unknown) (no (unknown) (unknown) Anesthesia (units (unk nown) date) unknown) (unknown) (no (unknown) (unknown) Angina pectoris (units (unknown) date) unknown) (unknown) (no (unknown) (unknown) Ankle pain, (units (un known) date) chronic (2014) unknown) (unknown) (no (unknown) (unknown) Ankle pain, (units (un known) date) chronic unknown) (unknown) (no (unknown) (unknown) Anxiety (units (unkno wn) date) unknown) (unknown) (no (unknown) (unknown) Attending Dr: Laura (units (unknown) date) Weeks D.O. unknown) (unknown) (no (unknown) (unknown) BMI 28.3 (units (unkno wn) date) unknown) (unknown) (no (unknown) (unknown) BP 156/88 H (units (un known) date) unknown) (unknown) (no (unknown) (unknown) Bipolar disorder (units (unknown) date) unknown) (unknown) (no (unknown) (unknown) Blood Pressure (units (unknown) date) Location Lt unknown) brachial (unknown) (no (unknown) (unknown) Brain cancer (units (u nknown) date) 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 (unknown) (no (unknown) (unknown) Chronic left-sided (units (unknown) date) thoracic back pain unknown) (unknown) (no (unknown) (unknown) 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 [id number] () (unknown) (no (unknown) (unknown) Compression (units (un known) date) fracture of body of unknown) thoracic vertebra () (unknown) (no (unknown) (unknown) Confirmed (units (unkn own) date) 11/17/22] unknown) (unknown) (no (unknown) (unknown) Cranial somatic (units (unknown) date) dysfunction unknown) (unknown) (no (unknown) (unknown) DAIRY Allergy (units ( unknown) date) (Intermediate, unknown) Uncoded 11/17/22 14:53) (unknown) (no (unknown) (unknown) : 1955 (units (unknown) date) Acct:[id number] unknown) (unknown) (no (unknown) (unknown) Depression (units (unk nown) date) (09/21/14) unknown) (unknown) (no (unknown) (unknown) Depression (units (unk nown) date) unknown) (unknown) (no (unknown) (unknown) Dept at (units (unkno wn) date) . unknown) (unknown) (no (unknown) (unknown) Disabled Parking (units (unknown) date) Permit #1 ea unknown) 04/08/22 [Rx Confirmed 11/17/22] (unknown) (no (unknown) (unknown) Documented By: (units (unknown) date) Laura Parikh D.O. unknown) 11/17/22 1441 (unknown) (no (unknown) (unknown) Draft (units (unkno wn) date) unknown) (unknown) (no (unknown) (unknown) Environmental (units ( unknown) date) allergies unknown) (unknown) (no (unknown) (unknown) Esophageal (units (unk nown) date) stricture unknown) (unknown) (no (unknown) (unknown) Esophagitis (units (un known) date) unknown) (unknown) (no (unknown) (unknown) Experiences (units (un known) date) increase unknown) temperature ratings (Normally 96*F and reading 99*F most (unknown) (no (unknown) (unknown) Family History (units (unknown) date) (Updated 06/08/18 @ unknown) 12:37 by Rabia Jacob) (unknown) (no (unknown) (unknown) Family Practice (units (unknown) date) Office Visit unknown) (unknown) (no (unknown) (unknown) Fibromyalgia (units (u nknown) date) unknown) (unknown) (no (unknown) (unknown) [facility]units ([facility] date[facility] unknown) (unknown) (no (unknown) (unknown) Fine) See Rx (units (u nknown) date) Instructions .Route unknown) .COMPLEX #[id number] ea 08/04/22 [Rx Confirmed (unknown) (no (unknown) (unknown) Foot pain (2011) (units (unknown) date) unknown) (unknown) (no (unknown) (unknown) Gastropathy (units (un known) date) unknown) (unknown) (no (unknown) (unknown) Grandmother (units (un known) date) Diabetes mellitus unknown) (unknown) (no (unknown) (unknown) Hayfever (units (unkno wn) date) unknown) (unknown) (no (unknown) (unknown) Health Management (units (unknown) date) reviewed with unknown) patient: No (unknown) (no (unknown) (unknown) Health Management (units (unknown) date) unknown) (unknown) (no (unknown) (unknown) Heart disease (units ( unknown) date) unknown) (unknown) (no (unknown) (unknown) Height 5 ft 3.5 in (units (unknown) date) unknown) (unknown) (no (unknown) (unknown) Hemorrhoids (units (un known) date) unknown) (unknown) (no (unknown) (unknown) Hiatal hernia (units ( unknown) date) unknown) (unknown) (no (unknown) (unknown) High cholesterol (units (unknown) date) unknown) (unknown) (no (unknown) (unknown) History of (units (unk nown) date) diabetes mellitus unknown) (unknown) (no (unknown) (unknown) History of (units (unk nown) date) fundoplication unknown) (unknown) (no (unknown) (unknown) History of repair (units (unknown) date) of hiatal hernia unknown) (11/2011) (unknown) (no (unknown) (unknown) History of (units (unk nown) date) tonsillectomy unknown) (1972) (unknown) (no (unknown) (unknown) Hives (units (unkno wn) date) unknown) (unknown) (no (unknown) (unknown) Hypertension (units (u nknown) date) unknown) (unknown) (no (unknown) (unknown) Hypothyroidism (units (unknown) date) unknown) (unknown) (no (unknown) (unknown) IBS (irritable (units (unknown) date) bowel syndrome) unknown) (unknown) (no (unknown) (unknown) 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) unknown) (unknown) (no (unknown) (unknown) Intake Note: (units (u nknown) date) unknown) (unknown) (no (unknown) (unknown) Intake performed (units (unknown) date) by: Lani Benavides unknown) (unknown) (no (unknown) (unknown) Intake (units (unkno wn) date) unknown) (unknown) (no (unknown) (unknown) Intake- Clincial (units (unknown) date) Staff unknown) (unknown) (no (unknown) (unknown) Last Menstural (units (unknown) date) Cycle + Details unknown) (unknown) (no (unknown) (unknown) Liver cancer (units (u nknown) date) unknown) (unknown) (no (unknown) (unknown) Loc: [facility] (units (unkno wn) date) unknown) (unknown) (no (unknown) (unknown) Lumbar facet (units (u nknown) date) arthropathy (2014) unknown) (unknown) (no (unknown) (unknown) Lumbar region (units ( unknown) date) somatic dysfunction unknown) (unknown) (no (unknown) (unknown) Lung cancer (units (un known) date) unknown) (unknown) (no (unknown) (unknown) Medical History (units (unknown) date) (Updated 09/08/22 @ unknown) 11:04 by Reinier Pettit DO) (unknown) (no (unknown) (unknown) Medications (units (un known) date) unknown) (unknown) (no (unknown) (unknown) Mother (units (unknown) date) Diabetes mellitus unknown) (unknown) (no (unknown) (unknown) Obesity (units (unkno wn) date) unknown) (unknown) (no (unknown) (unknown) Osteoarthritis (units (unknown) date) (2012) unknown) (unknown) (no (unknown) (unknown) 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 unknown) (unknown) (no (unknown) (unknown) Osteoporosis (units (u nknown) date) unknown) (unknown) (no (unknown) (unknown) Other Menstrual (units (unknown) date) Period: unknown) Postmenopausal (unknown) (no (unknown) (unknown) Oxygen Delivery (units (unknown) date) Method room air unknown) (unknown) (no (unknown) (unknown) PFSH (units (unkno wn) date) unknown) (unknown) (no (unknown) (unknown) PTSD (units (unkno wn) date) (post-traumatic unknown) stress disorder) (unknown) (no (unknown) (unknown) Patient: (units (unkno wn) date) VioletteWhitley unknown) MR#: M (unknown) (no (unknown) (unknown) Pelvic somatic (units (unknown) date) dysfunction unknown) (unknown) (no (unknown) (unknown) Pernicious anemia (units (unknown) date) unknown) (unknown) (no (unknown) (unknown) Personality (units (un known) date) disorder unknown) (unknown) (no (unknown) (unknown) Position Sitting (units (unknown) date) unknown) (unknown) (no (unknown) (unknown) Pulse 89 (units (unkno wn) date) unknown) (unknown) (no (unknown) (unknown) Pulse Oximetry (%) (units (unknown) date) 97 unknown) (unknown) (no (unknown) (unknown) Pulse Source (units (u nknown) date) Monitor unknown) (unknown) (no (unknown) (unknown) [id number] #1 mL (units (unknown) date) 08/04/22 [Rx unknown) Confirmed 11/17/22] (unknown) (no (unknown) (unknown) RLS (restless legs (units (unknown) date) syndrome) unknown) (unknown) (no (unknown) (unknown) Reason For Visit (units (unknown) date) unknown) (unknown) (no (unknown) (unknown) Right shoulder (units (unknown) date) pain unknown) (unknown) (no (unknown) (unknown) SWELLING (units (unkno wn) date) unknown) (unknown) (no (unknown) (unknown) Sacral region (units ( unknown) date) somatic dysfunction unknown) (unknown) (no (unknown) (unknown) Sacroiliitis (units (u nknown) date) (2012) unknown) (unknown) (no (unknown) (unknown) Seborrheic (units (unk nown) date) keratosis unknown) (unknown) (no (unknown) (unknown) Segmental and (units ( unknown) date) somatic dysfunction unknown) of abdomen and other regions (unknown) (no (unknown) (unknown) Signed By: (units (unk nown) date) unknown) (unknown) (no (unknown) (unknown) Sister (units (unknown) date) Diabetes mellitus unknown) (unknown) (no (unknown) (unknown) Smoking Status: (units (unknown) date) Former smoker unknown) (unknown) (no (unknown) (unknown) Status post (units (un known) date) colonoscopy unknown) (09/2019) (unknown) (no (unknown) (unknown) Status post (units (un known) date) endoscopy (12/2019) unknown) (unknown) (no (unknown) (unknown) Status post (units (un known) date) reduction unknown) mammoplasty (07/2010) (unknown) (no (unknown) (unknown) Stroke (units (unkno wn) date) unknown) (unknown) (no (unknown) (unknown) Substance abuse (units (unknown) date) unknown) (unknown) (no (unknown) (unknown) Surgical History (units (unknown) date) (Updated 01/18/20 @ unknown) 15:38 by Summer Price DO) (unknown) (no (unknown) (unknown) Temp 97.1 F L (units ( unknown) date) unknown) (unknown) (no (unknown) (unknown) Temp Source (units (un known) date) Temporal Artery unknown) Scan (unknown) (no (unknown) (unknown) This note may have (units (unknown) date) been all or unknown) partially generated using voice recognition (unknown) (no (unknown) (unknown) Thoracic region (units (unknown) date) somatic dysfunction unknown) (unknown) (no (unknown) (unknown) Tinnitus (units (unkno wn) date) unknown) (unknown) (no (unknown) (unknown) Tobacco + (units (unkn own) date) Substance Use unknown) (unknown) (no (unknown) (unknown) Tobacco Status (units (unknown) date) unknown) (unknown) (no (unknown) (unknown) Tubular adenoma of (units (unknown) date) colon (12/2014) unknown) (unknown) (no (unknown) (unknown) Visit Reasons: [place]units ([place]) date) F/U / discuss OMT unknown) (unknown) (no (unknown) (unknown) Vitals (units (unkno wn) date) unknown) (unknown) (no (unknown) (unknown) Was seen @ [facility] on (units (unknown) date) [facility] due unknown) to fever and cough (unknown) (no (unknown) (unknown) Weight 162 lb 6 oz (units (unknown) date) unknown) (unknown) (no (unknown) (unknown) Would like to (units ( unknown) date) discuss OMT for unknown) chronic shoulder pain, was seeing Dr Pettit (unknown) (no (unknown) (unknown) acetaminophen 300 (units (unknown) date) mg-codeine 30 mg unknown) tablet 1 tab PO Q6HP PRN pain #30 tabs (unknown) (no (unknown) (unknown) albuterol (units (unkn own) date) [ALBUTEROL] Allergy unknown) (Unknown, Verified 11/17/22 14:53) (unknown) (no (unknown) (unknown) bladder pain (units (u nknown) date) unknown) (unknown) (no (unknown) (unknown) cholecalciferol (units (unknown) date) (vitamin D3) 250 unknown) mcg (10,000 unit) tablet 10,000 tab PO QDAY ##0 (unknown) (no (unknown) (unknown) clonazepam 1 mg (units (unknown) date) tablet 0.5 mg PO unknown) BID PRN anxiety #10 tabs 02/19/22 [Rx Confirmed (unknown) (no (unknown) (unknown) congestion and (units (unknown) date) stomach problems unknown) (unknown) (no (unknown) (unknown) cyanocobalamin (units (unknown) date) (vitamin B-12) unknown) 1,000 mcg/mL injection solution 1,000 mcg IM (unknown) (no (unknown) (unknown) dexamethasone (units ( unknown) date) Adverse Reaction unknown) (Severe, Unverified 11/17/22 14:53) (unknown) (no (unknown) (unknown) folic acid 5 mg PO (units (unknown) date) 04/08/22 [History unknown) Confirmed 11/17/22] (unknown) (no (unknown) (unknown) gentle iron PO (units (unknown) date) 12/09/21 [History unknown) Confirmed 11/17/22] (unknown) (no (unknown) (unknown) gluten [GLUTEN] (units (unknown) date) Allergy (Unknown, unknown) Verified 11/17/22 14:53) (unknown) (no (unknown) (unknown) grass pollen (units (u nknown) date) Allergy (Severe, unknown) Verified 11/17/22 14:53) (unknown) (no (unknown) (unknown) have occurred. If (units (unknown) date) there are any unknown) questions, please contact the Medical Records (unknown) (no (unknown) (unknown) hydromorphone (units ( unknown) date) [HYDROMORPHONE] unknown) Allergy (Mild, Verified 11/17/22 14:53) (unknown) (no (unknown) (unknown) hydroxocobalamin (units (unknown) date) 1,000 mcg/mL unknown) intramuscular solution 500 mcg (0.5 mL) IM BID #30 (unknown) (no (unknown) (unknown) insulin (units (unkno wn) date) syringe-needle unknown) U-100 1 mL 30 gauge x 1/2' (BD Insulin Syringe Ultra (unknown) (no (unknown) (unknown) k2 with vit D PO (units (unknown) date) 12/09/21 [History unknown) Confirmed 11/17/22] (unknown) (no (unknown) (unknown) lithium [LITHIUM] (units (unknown) date) Allergy (Unknown, unknown) Verified 11/17/22 14:53) (unknown) (no (unknown) (unknown) loratadine 10 mg (units (unknown) date) tablet (Claritin) unknown) 10 mg PO DAILY PRN allergic symptoms #90 tabs (unknown) (no (unknown) (unknown) mL 08/04/22 [Rx (units (unknown) date) Confirmed 11/17/22] unknown) (unknown) (no (unknown) (unknown) may occur. (units (unk nown) date) Occasional unknown) wrong-word or 'sound-alike' substitutions may have (unknown) (no (unknown) (unknown) nights) (units (unkno wn) date) unknown) (unknown) (no (unknown) (unknown) occurred due to (units (unknown) date) the inherent unknown) limitations of voice recognition software. Please (unknown) (no (unknown) (unknown) ondansetron HCl 4 (units (unknown) date) mg tablet (Zofran) unknown) 4 mg PO Q4HP PRN #20 tabs 11/25/17 [Rx (unknown) (no (unknown) (unknown) previously (units (unk nown) date) unknown) (unknown) (no (unknown) (unknown) read the note (units ( unknown) date) carefully and unknown) recognize, using context, where these substitutions (unknown) (no (unknown) (unknown) software. 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 (unknown) (no (unknown) (unknown) tachycardia (units (un known) date) unknown) (unknown) (no (unknown) (unknown) tizanidine 4 mg (units (unknown) date) tablet 4 mg PO Q8H unknown) PRN muscle spasticity #20 tabs 02/05/22 [Rx (unknown) (no (unknown) (unknown) vitamin c 1000 mg (units (unknown) date) PO 12/09/21 unknown) [History Confirmed 11/17/22] Result panel 7 (unknown) (no (unknown) (unknown) (no value) (units (unk nown) date) unknown) (unknown) (no (unknown) (unknown) [id number] (units (unkn own) date) unknown) (unknown) (no (unknown) (unknown) 11/17/22 (units (unkno wn) date) unknown) (unknown) (no (unknown) (unknown) 11/17/22] (units (unkn own) date) unknown) (unknown) (no (unknown) (unknown) 12/26/17 [History (units (unknown) date) Confirmed 11/17/22] unknown) (unknown) (no (unknown) (unknown) 03/25/22 [Rx (units (u nknown) date) Confirmed 11/17/22] unknown) (unknown) (no (unknown) (unknown) 04/25/21 [Rx (units (u nknown) date) Confirmed 11/17/22] unknown) (unknown) (no (unknown) (unknown) 14:53 (units (unkno wn) date) unknown) (unknown) (no (unknown) (unknown) 67 yo female (units (u nknown) date) presents today for unknown) [facility] follow from 11/04/22 for COVID (unknown) (no (unknown) (unknown) Accompanied by: (units (unknown) date) Self / Same As unknown) Patient (unknown) (no (unknown) (unknown) Acute pain of left (units (unknown) date) shoulder unknown) (unknown) (no (unknown) (unknown) Age/Sex: 67 / F (units (unknown) date) Date of Service: unknown) (unknown) (no (unknown) (unknown) Allergic reaction (units (unknown) date) to grass pollen unknown) (unknown) (no (unknown) (unknown) Allergic to cats (units (unknown) date) unknown) (unknown) (no (unknown) (unknown) Allergies (units (unkn own) date) unknown) (unknown) (no (unknown) (unknown) [place], [place] (units ( unknown) date) [id number] unknown) (unknown) (no (unknown) (unknown) Anesthesia (units (unk nown) date) unknown) (unknown) (no (unknown) (unknown) Angina pectoris (units (unknown) date) unknown) (unknown) (no (unknown) (unknown) Ankle pain, (units (un known) date) chronic (2014) unknown) (unknown) (no (unknown) (unknown) Ankle pain, (units (un known) date) chronic unknown) (unknown) (no (unknown) (unknown) Anxiety (units (unkno wn) date) unknown) (unknown) (no (unknown) (unknown) Attending Dr: Laura (units (unknown) date) Weeks D.O. unknown) (unknown) (no (unknown) (unknown) BMI 28.3 (units (unkno wn) date) unknown) (unknown) (no (unknown) (unknown) BP 156/88 H (units (un known) date) unknown) (unknown) (no (unknown) (unknown) Bipolar disorder (units (unknown) date) unknown) (unknown) (no (unknown) (unknown) Blood Pressure (units (unknown) date) Location Lt unknown) brachial (unknown) (no (unknown) (unknown) Brain cancer (units (u nknown) date) unknown) (unknown) (no (unknown) (unknown) Cervical somatic (units (unknown) date) dysfunction unknown) (unknown) (no (unknown) (unknown) Chicken pox (units (un known) date) unknown) (unknown) (no (unknown) (unknown) Chief Complaint (units (unknown) date) unknown) (unknown) (no (unknown) (unknown) Chief Complaint: (units (unknown) date) [place] walk in unknown) follow up (unknown) (no (unknown) (unknown) Child Age: 34 Hx (units (unknown) date) of appendectomy unknown) (unknown) (no (unknown) (unknown) Child Age: 37 (units ( unknown) date) Penicillin allergy unknown) (unknown) (no (unknown) (unknown) Child Age: 46 Hay (units (unknown) date) fever unknown) (unknown) (no (unknown) (unknown) 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 (unknown) (no (unknown) (unknown) Chronic left-sided (units (unknown) date) thoracic back pain unknown) (unknown) (no (unknown) (unknown) 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) (unknown) (no (unknown) (unknown) Compression (units (un known) date) fracture of body of unknown) thoracic vertebra () (unknown) (no (unknown) (unknown) Confirmed (units (unkn own) date) 11/17/22] unknown) (unknown) (no (unknown) (unknown) Cranial somatic (units (unknown) date) dysfunction unknown) (unknown) (no (unknown) (unknown) DAIRY Allergy (units ( unknown) date) (Intermediate, unknown) Uncoded 11/17/22 14:53) (unknown) (no (unknown) (unknown) : 1955 (units (unknown) date) Acct:[id number] unknown) (unknown) (no (unknown) (unknown) Depression (units (unk nown) date) (09/21/14) unknown) (unknown) (no (unknown) (unknown) Depression (units (unk nown) date) unknown) (unknown) (no (unknown) (unknown) Dept at (units (unkno wn) date) . unknown) (unknown) (no (unknown) (unknown) Details: (units (unkno wn) date) unknown) (unknown) (no (unknown) (unknown) Disabled Parking (units (unknown) date) Permit #1 ea unknown) 04/08/22 [Rx Confirmed 11/17/22] (unknown) (no (unknown) (unknown) Documented By: (units (unknown) date) Laura Parikh D.O. unknown) 11/17/22 1441 (unknown) (no (unknown) (unknown) Draft (units (unkno wn) date) unknown) (unknown) (no (unknown) (unknown) Eating a high (units ( unknown) date) potassium and high unknown) magnesium diet. (unknown) (no (unknown) (unknown) Environmental (units ( unknown) date) allergies unknown) (unknown) (no (unknown) (unknown) Esophageal (units (unk nown) date) stricture unknown) (unknown) (no (unknown) (unknown) Esophagitis (units (un known) date) unknown) (unknown) (no (unknown) (unknown) Experiences (units (un known) date) increase unknown) temperature ratings (Normally 96*F and reading 99*F most (unknown) (no (unknown) (unknown) Family History (units (unknown) date) (Updated 06/08/18 @ unknown) 12:37 by Rabia Jacob) (unknown) (no (unknown) (unknown) Family Practice (units (unknown) date) Office Visit unknown) (unknown) (no (unknown) (unknown) Fibromyalgia (units (u nknown) date) unknown) (unknown) (no (unknown) (unknown) [facility]) (unknown) (no (unknown) (unknown) Fine) See Rx (units (u nknown) date) Instructions .Route unknown) .COMPLEX #200 ea 08/04/22 [Rx Confirmed (unknown) (no (unknown) (unknown) Foot pain (2011) (units (unknown) date) unknown) (unknown) (no (unknown) (unknown) Gastropathy (units (un known) date) unknown) (unknown) (no (unknown) (unknown) Grandmother (units (un known) date) Diabetes mellitus unknown) (unknown) (no (unknown) (unknown) HPI (units (unkno wn) date) unknown) (unknown) (no (unknown) (unknown) Hayfever (units (unkno wn) date) unknown) (unknown) (no (unknown) (unknown) Health Management (units (unknown) date) reviewed with unknown) patient: No (unknown) (no (unknown) (unknown) Health Management (units (unknown) date) unknown) (unknown) (no (unknown) (unknown) Heart disease (units ( unknown) date) unknown) (unknown) (no (unknown) (unknown) Height 5 ft 3.5 in (units (unknown) date) unknown) (unknown) (no (unknown) (unknown) Hemorrhoids (units (un known) date) unknown) (unknown) (no (unknown) (unknown) Hiatal hernia (units ( unknown) date) unknown) (unknown) (no (unknown) (unknown) High cholesterol (units (unknown) date) unknown) (unknown) (no (unknown) (unknown) History of (units (unk nown) date) diabetes mellitus unknown) (unknown) (no (unknown) (unknown) History of (units (unk nown) date) fundoplication unknown) (unknown) (no (unknown) (unknown) History of repair (units (unknown) date) of hiatal hernia unknown) (11/2011) (unknown) (no (unknown) (unknown) History of (units (unk nown) date) tonsillectomy unknown) (1972) (unknown) (no (unknown) (unknown) Hives (units (unkno wn) date) unknown) (unknown) (no (unknown) (unknown) Hypertension (units (u nknown) date) unknown) (unknown) (no (unknown) (unknown) Hypothyroidism (units (unknown) date) unknown) (unknown) (no (unknown) (unknown) IBS (irritable (units (unknown) date) bowel syndrome) unknown) (unknown) (no (unknown) (unknown) 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) unknown) (unknown) (no (unknown) (unknown) Intake Note: (units (u nknown) date) unknown) (unknown) (no (unknown) (unknown) Intake performed (units (unknown) date) by: Lani Benavides unknown) (unknown) (no (unknown) (unknown) Intake (units (unkno wn) date) unknown) (unknown) (no (unknown) (unknown) Intake- Clincial (units (unknown) date) Staff unknown) (unknown) (no (unknown) (unknown) Last Menstural (units (unknown) date) Cycle + Details unknown) (unknown) (no (unknown) (unknown) Liver cancer (units (u nknown) date) unknown) (unknown) (no (unknown) (unknown) Loc: [facility] (units (unkno wn) date) unknown) (unknown) (no (unknown) (unknown) Lumbar facet (units (u nknown) date) arthropathy (2013) unknown) (unknown) (no (unknown) (unknown) Lumbar region (units ( unknown) date) somatic dysfunction unknown) (unknown) (no (unknown) (unknown) Lung cancer (units (un known) date) unknown) (unknown) (no (unknown) (unknown) Medical History (units (unknown) date) (Updated 09/08/22 @ unknown) 11:04 by Reinier Pettit DO) (unknown) (no (unknown) (unknown) Medications (units (un known) date) unknown) (unknown) (no (unknown) (unknown) Mother (units (unknown) date) Diabetes mellitus unknown) (unknown) (no (unknown) (unknown) Obesity (units (unkno wn) date) unknown) (unknown) (no (unknown) (unknown) Osteoarthritis (units (unknown) date) (2012) unknown) (unknown) (no (unknown) (unknown) 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 unknown) (unknown) (no (unknown) (unknown) Osteoporosis (units (u nknown) date) unknown) (unknown) (no (unknown) (unknown) Other Menstrual (units (unknown) date) Period: unknown) Postmenopausal (unknown) (no (unknown) (unknown) Oxygen Delivery (units (unknown) date) Method room air unknown) (unknown) (no (unknown) (unknown) PFSH (units (unkno wn) date) unknown) (unknown) (no (unknown) (unknown) PTSD (units (unkno wn) date) (post-traumatic unknown) stress disorder) (unknown) (no (unknown) (unknown) Patient: (units (unkno wn) date) Nivia Oakesraji Pagan unknown) MR#: M (unknown) (no (unknown) (unknown) Pelvic somatic (units (unknown) date) dysfunction unknown) (unknown) (no (unknown) (unknown) Pernicious anemia (units (unknown) date) unknown) (unknown) (no (unknown) (unknown) Personality (units (un known) date) disorder unknown) (unknown) (no (unknown) (unknown) Position Sitting (units (unknown) date) unknown) (unknown) (no (unknown) (unknown) Post covid, still (units (unknown) date) having elevated unknown) temperatures 99 deg nightly (unknown) (no (unknown) (unknown) Pulse 89 (units (unkno wn) date) unknown) (unknown) (no (unknown) (unknown) Pulse Oximetry (%) (units (unknown) date) 97 unknown) (unknown) (no (unknown) (unknown) Pulse Source (units (u nknown) date) Monitor unknown) (unknown) (no (unknown) (unknown) A3WZCHIV #1 mL (units (unknown) date) 08/04/22 [Rx unknown) Confirmed 11/17/22] (unknown) (no (unknown) (unknown) RLS (restless legs (units (unknown) date) syndrome) unknown) (unknown) (no (unknown) (unknown) Reason For Visit (units (unknown) date) unknown) (unknown) (no (unknown) (unknown) Right shoulder (units (unknown) date) pain unknown) (unknown) (no (unknown) (unknown) SWELLING (units (unkno wn) date) unknown) (unknown) (no (unknown) (unknown) Sacral region (units ( unknown) date) somatic dysfunction unknown) (unknown) (no (unknown) (unknown) Sacroiliitis (units (u nknown) date) (2012) unknown) (unknown) (no (unknown) (unknown) Seborrheic (units (unk nown) date) keratosis unknown) (unknown) (no (unknown) (unknown) Segmental and (units ( unknown) date) somatic dysfunction unknown) of abdomen and other regions (unknown) (no (unknown) (unknown) Signed By: (units (unk nown) date) unknown) (unknown) (no (unknown) (unknown) Sister (units (unknown) date) Diabetes mellitus unknown) (unknown) (no (unknown) (unknown) Smoking Status: (units (unknown) date) Former smoker unknown) (unknown) (no (unknown) (unknown) Status post (units (un known) date) colonoscopy unknown) (09/2019) (unknown) (no (unknown) (unknown) Status post (units (un known) date) endoscopy (12/2019) unknown) (unknown) (no (unknown) (unknown) Status post (units (un known) date) reduction unknown) mammoplasty (07/2010) (unknown) (no (unknown) (unknown) Staying hydrated (units (unknown) date) unknown) (unknown) (no (unknown) (unknown) Stroke (units (unkno wn) date) unknown) (unknown) (no (unknown) (unknown) Substance abuse (units (unknown) date) unknown) (unknown) (no (unknown) (unknown) Surgical History (units (unknown) date) (Updated 01/18/20 @ unknown) 15:38 by Summer Price DO) (unknown) (no (unknown) (unknown) Temp 97.1 F L (units ( unknown) date) unknown) (unknown) (no (unknown) (unknown) Temp Source (units (un known) date) Temporal Artery unknown) Scan (unknown) (no (unknown) (unknown) This note may have (units (unknown) date) been all or unknown) partially generated using voice recognition (unknown) (no (unknown) (unknown) Thoracic region (units (unknown) date) somatic dysfunction unknown) (unknown) (no (unknown) (unknown) Tinnitus (units (unkno wn) date) unknown) (unknown) (no (unknown) (unknown) Tobacco + (units (unkn own) date) Substance Use unknown) (unknown) (no (unknown) (unknown) Tobacco Status (units (unknown) date) unknown) (unknown) (no (unknown) (unknown) Tubular adenoma of (units (unknown) date) colon (12/2014) unknown) (unknown) (no (unknown) (unknown) Using tylenol w (units (unknown) date) codeine for b/l unknown) ankle pain, seeing podiatry mid month (unknown) (no (unknown) (unknown) Visit Reasons: [facility] (units ([facility]) date) F/U / discuss OMT unknown) (unknown) (no (unknown) (unknown) Vitals (units (unkno wn) date) unknown) (unknown) (no (unknown) (unknown) Was seen @ [facility] on (units (unknown) date) [facility] due unknown) to fever and cough (unknown) (no (unknown) (unknown) Weight 162 lb 6 oz (units (unknown) date) unknown) (unknown) (no (unknown) (unknown) Would like to (units ( unknown) date) discuss OMT for unknown) chronic shoulder pain, was seeing Dr Pettit (unknown) (no (unknown) (unknown) acetaminophen 300 (units (unknown) date) mg-codeine 30 mg unknown) tablet 1 tab PO Q6HP PRN pain #30 tabs (unknown) (no (unknown) (unknown) albuterol (units (unkn own) date) [ALBUTEROL] Allergy unknown) (Unknown, Verified 11/17/22 14:53) (unknown) (no (unknown) (unknown) bladder pain (units (u nknown) date) unknown) (unknown) (no (unknown) (unknown) cholecalciferol (units (unknown) date) (vitamin D3) 250 unknown) mcg (10,000 unit) tablet 10,000 tab PO QDAY ##0 (unknown) (no (unknown) (unknown) clonazepam 1 mg (units (unknown) date) tablet 0.5 mg PO unknown) BID PRN anxiety #10 tabs 02/19/22 [Rx Confirmed (unknown) (no (unknown) (unknown) congestion and (units (unknown) date) stomach problems unknown) (unknown) (no (unknown) (unknown) cyanocobalamin (units (unknown) date) (vitamin B-12) unknown) 1,000 mcg/mL injection solution 1,000 mcg IM (unknown) (no (unknown) (unknown) dexamethasone (units ( unknown) date) Adverse Reaction unknown) (Severe, Unverified 11/17/22 14:53) (unknown) (no (unknown) (unknown) folic acid 5 mg PO (units (unknown) date) 04/08/22 [History unknown) Confirmed 11/17/22] (unknown) (no (unknown) (unknown) gentle iron PO (units (unknown) date) 12/09/21 [History unknown) Confirmed 11/17/22] (unknown) (no (unknown) (unknown) gluten [GLUTEN] (units (unknown) date) Allergy (Unknown, unknown) Verified 11/17/22 14:53) (unknown) (no (unknown) (unknown) grass pollen (units (u nknown) date) Allergy (Severe, unknown) Verified 11/17/22 14:53) (unknown) (no (unknown) (unknown) have occurred. If (units (unknown) date) there are any unknown) questions, please contact the Medical Records (unknown) (no (unknown) (unknown) hydromorphone (units ( unknown) date) [HYDROMORPHONE] unknown) Allergy (Mild, Verified 11/17/22 14:53) (unknown) (no (unknown) (unknown) hydroxocobalamin (units (unknown) date) 1,000 mcg/mL unknown) intramuscular solution 500 mcg (0.5 mL) IM BID #30 (unknown) (no (unknown) (unknown) insulin (units (unkno wn) date) syringe-needle unknown) U-100 1 mL 30 gauge x 1/2' (BD Insulin Syringe Ultra (unknown) (no (unknown) (unknown) k2 with vit D PO (units (unknown) date) 12/09/21 [History unknown) Confirmed 11/17/22] (unknown) (no (unknown) (unknown) lithium [LITHIUM] (units (unknown) date) Allergy (Unknown, unknown) Verified 11/17/22 14:53) (unknown) (no (unknown) (unknown) loratadine 10 mg (units (unknown) date) tablet (Claritin) unknown) 10 mg PO DAILY PRN allergic symptoms #90 tabs (unknown) (no (unknown) (unknown) mL 08/04/22 [Rx (units (unknown) date) Confirmed 11/17/22] unknown) (unknown) (no (unknown) (unknown) magnesium oil and (units (unknown) date) epsom salt unknown) (unknown) (no (unknown) (unknown) may occur. (units (unk nown) date) Occasional unknown) wrong-word or 'sound-alike' substitutions may have (unknown) (no (unknown) (unknown) nights) (units (unkno wn) date) unknown) (unknown) (no (unknown) (unknown) occurred due to (units (unknown) date) the inherent unknown) limitations of voice recognition software. Please (unknown) (no (unknown) (unknown) ondansetron HCl 4 (units (unknown) date) mg tablet (Zofran) unknown) 4 mg PO Q4HP PRN #20 tabs 11/25/17 [Rx (unknown) (no (unknown) (unknown) previously (units (unk nown) date) unknown) (unknown) (no (unknown) (unknown) read the note (units ( unknown) date) carefully and unknown) recognize, using context, where these substitutions (unknown) (no (unknown) (unknown) software. 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 (unknown) (no (unknown) (unknown) tachycardia (units (un known) date) unknown) (unknown) (no (unknown) (unknown) tizanidine 4 mg (units (unknown) date) tablet 4 mg PO Q8H unknown) PRN muscle spasticity #20 tabs 02/05/22 [Rx (unknown) (no (unknown) (unknown) tolerating PO, but (units (unknown) date) only from scratch unknown) cooking (unknown) (no (unknown) (unknown) vitamin c 1000 mg (units (unknown) date) PO 12/09/21 unknown) [History Confirmed 11/17/22] Result panel 8 (unknown) (no (unknown) (unknown) (no value) (units (unk nown) date) unknown) (unknown) (no (unknown) (unknown) (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: unknown) (unknown) (no (unknown) (unknown) (2) Ankle pain, (units (unknown) date) chronic: unknown) (unknown) (no (unknown) (unknown) (3) IBS (irritable (units (unknown) date) bowel syndrome): unknown) (unknown) (no (unknown) (unknown) (4) Pernicious (units (unknown) date) anemia: unknown) (unknown) (no (unknown) (unknown) [id number] (units (unkn own) date) unknown) (unknown) (no (unknown) (unknown) 11/17/22 1657 (units ( unknown) date) unknown) (unknown) (no (unknown) (unknown) 11/17/22 (units (unkno wn) date) unknown) (unknown) (no (unknown) (unknown) 11/17/22] (units (unkn own) date) unknown) (unknown) (no (unknown) (unknown) 12/26/17 [History (units (unknown) date) Confirmed 11/17/22] unknown) (unknown) (no (unknown) (unknown) 03/25/22 [Rx (units (u nknown) date) Confirmed 11/17/22] unknown) (unknown) (no (unknown) (unknown) 14:53 (units (unkno wn) date) unknown) (unknown) (no (unknown) (unknown) 67 yo female (units (u nknown) date) presents today for unknown) [facility] follow from 11/04/22 for COVID (unknown) (no (unknown) (unknown) Accompanied by: (units (unknown) date) Self / Same As unknown) Patient (unknown) (no (unknown) (unknown) Acute pain of left (units (unknown) date) shoulder unknown) (unknown) (no (unknown) (unknown) Age/Sex: 67 / F (units (unknown) date) Date of Service: unknown) (unknown) (no (unknown) (unknown) Allergic reaction (units (unknown) date) to grass pollen unknown) (unknown) (no (unknown) (unknown) Allergic to cats (units (unknown) date) unknown) (unknown) (no (unknown) (unknown) Allergies (units (unkn own) date) unknown) (unknown) (no (unknown) (unknown) [place], [place] (units ( unknown) date) [id number] unknown) (unknown) (no (unknown) (unknown) Anesthesia (units (unk nown) date) unknown) (unknown) (no (unknown) (unknown) Angina pectoris (units (unknown) date) unknown) (unknown) (no (unknown) (unknown) Ankle pain, (units (un known) date) chronic (2014) unknown) (unknown) (no (unknown) (unknown) Ankle pain, (units (un known) date) chronic unknown) (unknown) (no (unknown) (unknown) Anxiety (units (unkno wn) date) unknown) (unknown) (no (unknown) (unknown) Assessment + Plan (units (unknown) date) unknown) (unknown) (no (unknown) (unknown) Attending Dr: Laura (units (unknown) date) Weeks D.O. unknown) (unknown) (no (unknown) (unknown) BMI 28.3 (units (unkno wn) date) unknown) (unknown) (no (unknown) (unknown) BP 156/88 H (units (un known) date) unknown) (unknown) (no (unknown) (unknown) Bipolar disorder (units (unknown) date) unknown) (unknown) (no (unknown) (unknown) Blood Pressure (units (unknown) date) Location Lt unknown) brachial (unknown) (no (unknown) (unknown) Brain cancer (units (u nknown) date) unknown) (unknown) (no (unknown) (unknown) Cardio: regular (units (unknown) date) rate and rhythm, no unknown) murmurs (unknown) (no (unknown) (unknown) Cervical somatic (units (unknown) date) dysfunction unknown) (unknown) (no (unknown) (unknown) Changed (units (unkno wn) date) unknown) (unknown) (no (unknown) (unknown) Chicken pox (units (un known) date) unknown) (unknown) (no (unknown) (unknown) Chief Complaint (units (unknown) date) unknown) (unknown) (no (unknown) (unknown) Chief Complaint: (units (unknown) date) [place] walk in unknown) follow up (unknown) (no (unknown) (unknown) Child Age: 34 Hx (units (unknown) date) of appendectomy unknown) (unknown) (no (unknown) (unknown) Child Age: 37 (units ( unknown) date) Penicillin allergy unknown) (unknown) (no (unknown) (unknown) Child Age: 46 Hay (units (unknown) date) fever unknown) (unknown) (no (unknown) (unknown) 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 (unknown) (no (unknown) (unknown) Chronic left-sided (units (unknown) date) thoracic back pain unknown) (unknown) (no (unknown) (unknown) 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 () (unknown) (no (unknown) (unknown) Compression (units (un known) date) fracture of body of unknown) thoracic vertebra (-04/2021) (unknown) (no (unknown) (unknown) Confirmed (units (unkn own) date) 11/17/22] unknown) (unknown) (no (unknown) (unknown) Cranial somatic (units (unknown) date) dysfunction unknown) (unknown) (no (unknown) (unknown) DAIRY Allergy (units ( unknown) date) (Intermediate, unknown) Uncoded 11/17/22 14:53) (unknown) (no (unknown) (unknown) : 1955 (units (unknown) date) Acct:[id number] unknown) (unknown) (no (unknown) (unknown) Depression (units (unk nown) date) (09/21/14) unknown) (unknown) (no (unknown) (unknown) Depression (units (unk nown) date) unknown) (unknown) (no (unknown) (unknown) Dept at (units (unkno wn) date) . unknown) (unknown) (no (unknown) (unknown) Details: (units (unkno wn) date) unknown) (unknown) (no (unknown) (unknown) Disabled Parking (units (unknown) date) Permit #1 ea unknown) 04/08/22 [Rx Confirmed 11/17/22] (unknown) (no (unknown) (unknown) Documented By: (units (unknown) date) Laura Parikh D.O. unknown) 11/17/22 1441 (unknown) (no (unknown) (unknown) Eating a high (units ( unknown) date) potassium and high unknown) magnesium diet. (unknown) (no (unknown) (unknown) Environmental (units ( unknown) date) allergies unknown) (unknown) (no (unknown) (unknown) Esophageal (units (unk nown) date) stricture unknown) (unknown) (no (unknown) (unknown) Esophagitis (units (un known) date) unknown) (unknown) (no (unknown) (unknown) Exam Narrative (units (unknown) date) unknown) (unknown) (no (unknown) (unknown) Exam Narrative: (units (unknown) date) unknown) (unknown) (no (unknown) (unknown) Exam (units (unkno wn) date) unknown) (unknown) (no (unknown) (unknown) Experiences (units (un known) date) increase unknown) temperature ratings (Normally 96*F and reading 99*F most (unknown) (no (unknown) (unknown) Family History (units (unknown) date) (Updated 06/08/18 @ unknown) 12:37 by Rabia Jacob) (unknown) (no (unknown) (unknown) Family Practice (units (unknown) date) Office Visit unknown) (unknown) (no (unknown) (unknown) Fibromyalgia (units (u nknown) date) unknown) (unknown) (no (unknown) (unknown) [facility]) (unknown) (no (unknown) (unknown) Fine) See Rx (units (u nknown) date) Instructions .Route unknown) .COMPLEX #200 ea 08/04/22 [Rx Confirmed (unknown) (no (unknown) (unknown) Foot pain (2011) (units (unknown) date) unknown) (unknown) (no (unknown) (unknown) From (units (unkno wn) date) acetaminophen-codei unknown) ne 300-30 mg 1 tab PO Q6HP PRN 30 tabs 0RF pain (unknown) (no (unknown) (unknown) Gastropathy (units (un known) date) unknown) (unknown) (no (unknown) (unknown) General: pleasant, (units (unknown) date) cooperative, unknown) +central adiposity, sitting comfortably in no (unknown) (no (unknown) (unknown) Grandmother (units (un known) date) Diabetes mellitus unknown) (unknown) (no (unknown) (unknown) HPI (units (unkno wn) date) unknown) (unknown) (no (unknown) (unknown) Hayfever (units (unkno wn) date) unknown) (unknown) (no (unknown) (unknown) Health Management (units (unknown) date) reviewed with unknown) patient: No (unknown) (no (unknown) (unknown) Health Management (units (unknown) date) unknown) (unknown) (no (unknown) (unknown) Heart disease (units ( unknown) date) unknown) (unknown) (no (unknown) (unknown) Height 5 ft 3.5 in (units (unknown) date) unknown) (unknown) (no (unknown) (unknown) Hemorrhoids (units (un known) date) unknown) (unknown) (no (unknown) (unknown) Hiatal hernia (units ( unknown) date) unknown) (unknown) (no (unknown) (unknown) High cholesterol (units (unknown) date) unknown) (unknown) (no (unknown) (unknown) History of (units (unk nown) date) diabetes mellitus unknown) (unknown) (no (unknown) (unknown) History of (units (unk nown) date) fundoplication unknown) (unknown) (no (unknown) (unknown) History of repair (units (unknown) date) of hiatal hernia unknown) (11/2011) (unknown) (no (unknown) (unknown) History of (units (unk nown) date) tonsillectomy unknown) (1972) (unknown) (no (unknown) (unknown) Hives (units (unkno wn) date) unknown) (unknown) (no (unknown) (unknown) Hypertension (units (u nknown) date) unknown) (unknown) (no (unknown) (unknown) Hypothyroidism (units (unknown) date) unknown) (unknown) (no (unknown) (unknown) IBS (irritable (units (unknown) date) bowel syndrome) unknown) (unknown) (no (unknown) (unknown) 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) unknown) (unknown) (no (unknown) (unknown) Intake Note: (units (u nknown) date) unknown) (unknown) (no (unknown) (unknown) Intake performed (units (unknown) date) by: Lani Benavides unknown) (unknown) (no (unknown) (unknown) Intake (units (unkno wn) date) unknown) (unknown) (no (unknown) (unknown) Intake- Clincial (units (unknown) date) Staff unknown) (unknown) (no (unknown) (unknown) Irritable bowel (units (unknown) date) syndrome type: with unknown) both diarrhea and constipation (unknown) (no (unknown) (unknown) Last Menstural (units (unknown) date) Cycle + Details unknown) (unknown) (no (unknown) (unknown) Laterality: left (units (unknown) date) Qualified Code(s): unknown) M25.572 - Pain in left ankle and (unknown) (no (unknown) (unknown) Liver cancer (units (u nknown) date) unknown) (unknown) (no (unknown) (unknown) Loc: [facility] (units (unkno wn) date) unknown) (unknown) (no (unknown) (unknown) Lumbar facet (units (u nknown) date) arthropathy (2013) unknown) (unknown) (no (unknown) (unknown) Lumbar region (units ( unknown) date) somatic dysfunction unknown) (unknown) (no (unknown) (unknown) Lung cancer (units (un known) date) unknown) (unknown) (no (unknown) (unknown) Managing IBS and (units (unknown) date) pernicious anemia unknown) with supplementation and dietary (unknown) (no (unknown) (unknown) Medical History (units (unknown) date) (Updated 11/17/22 @ unknown) 16:55 by Laura Parikh DO) (unknown) (no (unknown) (unknown) Medications (units (un known) date) unknown) (unknown) (no (unknown) (unknown) Medications: (units (u nknown) date) unknown) (unknown) (no (unknown) (unknown) Mother (units (unknown) date) Diabetes mellitus unknown) (unknown) (no (unknown) (unknown) Neuro: alert and (units (unknown) date) oriented to person unknown) and situation, moving all limbs normally, (unknown) (no (unknown) (unknown) OMT as available. (units (unknown) date) unknown) (unknown) (no (unknown) (unknown) [facility] walk in (units (unknown) date) follow up, post unknown) viral. Having exacerbated autonomic (unknown) (no (unknown) (unknown) Obesity (units (unkno wn) date) unknown) (unknown) (no (unknown) (unknown) Osteoarthritis (units (unknown) date) (2012) unknown) (unknown) (no (unknown) (unknown) 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 unknown) (unknown) (no (unknown) (unknown) Osteoporosis (units (u nknown) date) unknown) (unknown) (no (unknown) (unknown) Other Menstrual (units (unknown) date) Period: unknown) Postmenopausal (unknown) (no (unknown) (unknown) Oxygen Delivery (units (unknown) date) Method room air unknown) (unknown) (no (unknown) (unknown) PFSH (units (unkno wn) date) unknown) (unknown) (no (unknown) (unknown) PTSD (units (unkno wn) date) (post-traumatic unknown) stress disorder) (unknown) (no (unknown) (unknown) Patient: (units (unkno wn) date) Whitley Oakes unknown) MR#: M (unknown) (no (unknown) (unknown) Pelvic somatic (units (unknown) date) dysfunction unknown) (unknown) (no (unknown) (unknown) Pernicious anemia (units (unknown) date) unknown) (unknown) (no (unknown) (unknown) Personality (units (un known) date) disorder unknown) (unknown) (no (unknown) (unknown) Plan (units (unkno wn) date) unknown) (unknown) (no (unknown) (unknown) Position Sitting (units (unknown) date) unknown) (unknown) (no (unknown) (unknown) Post covid, still (units (unknown) date) having elevated unknown) temperatures 99 deg nightly (unknown) (no (unknown) (unknown) Psych: well kempt, (units (unknown) date) speech and movement unknown) normal, normal affect (unknown) (no (unknown) (unknown) Pulse 89 (units (unkno wn) date) unknown) (unknown) (no (unknown) (unknown) Pulse Oximetry (%) (units (unknown) date) 97 unknown) (unknown) (no (unknown) (unknown) Pulse Source (units (u nknown) date) Monitor unknown) (unknown) (no (unknown) (unknown) Q1EVBFSO #1 mL (units (unknown) date) 08/04/22 [Rx unknown) Confirmed 11/17/22] (unknown) (no (unknown) (unknown) Qualified Code(s): (units (unknown) date) K58.2 - Mixed unknown) irritable bowel syndrome (unknown) (no (unknown) (unknown) Qualifiers: (units (un known) date) unknown) (unknown) (no (unknown) (unknown) RLS (restless legs (units (unknown) date) syndrome) unknown) (unknown) (no (unknown) (unknown) Reason For Visit (units (unknown) date) unknown) (unknown) (no (unknown) (unknown) Resp: normal (units (u nknown) date) effort, able to unknown) speak in complete sentences, clear to auscultation (unknown) (no (unknown) (unknown) Right shoulder (units (unknown) date) pain unknown) (unknown) (no (unknown) (unknown) SWELLING (units (unkno wn) date) unknown) (unknown) (no (unknown) (unknown) Sacral region (units ( unknown) date) somatic dysfunction unknown) (unknown) (no (unknown) (unknown) Sacroiliitis (units (u nknown) date) (2011) unknown) (unknown) (no (unknown) (unknown) Seborrheic (units (unk nown) date) keratosis unknown) (unknown) (no (unknown) (unknown) Segmental and (units ( unknown) date) somatic dysfunction unknown) of abdomen and other regions (unknown) (no (unknown) (unknown) Signed By: (units (unk nown) date) <Electronically unknown) signed by Laura Parikh D.O.> (unknown) (no (unknown) (unknown) Signed (units (unkno wn) date) unknown) (unknown) (no (unknown) (unknown) Sister (units (unknown) date) Diabetes mellitus unknown) (unknown) (no (unknown) (unknown) Smoking Status: (units (unknown) date) Former smoker unknown) (unknown) (no (unknown) (unknown) Status post (units (un known) date) colonoscopy unknown) (09/2019) (unknown) (no (unknown) (unknown) Status post (units (un known) date) endoscopy (12/2019) unknown) (unknown) (no (unknown) (unknown) Status post (units (un known) date) reduction unknown) mammoplasty (07/2010) (unknown) (no (unknown) (unknown) Status: Acute (units ( unknown) date) unknown) (unknown) (no (unknown) (unknown) Status: Chronic (units (unknown) date) unknown) (unknown) (no (unknown) (unknown) Staying hydrated (units (unknown) date) unknown) (unknown) (no (unknown) (unknown) Stroke (units (unkno wn) date) unknown) (unknown) (no (unknown) (unknown) Substance abuse (units (unknown) date) unknown) (unknown) (no (unknown) (unknown) Surgical History (units (unknown) date) (Updated 01/18/20 @ unknown) 15:38 by Summer Price DO) (unknown) (no (unknown) (unknown) Temp 97.1 F L (units ( unknown) date) unknown) (unknown) (no (unknown) (unknown) Temp Source (units (un known) date) Temporal Artery unknown) Scan (unknown) (no (unknown) (unknown) This note may have (units (unknown) date) been all or unknown) partially generated using voice recognition (unknown) (no (unknown) (unknown) Thoracic region (units (unknown) date) somatic dysfunction unknown) (unknown) (no (unknown) (unknown) Tinnitus (units (unkno wn) date) unknown) (unknown) (no (unknown) (unknown) To (units (unkno wn) date) acetaminophen-codei unknown) ne 300-30 mg 1 tab PO Q6H PRN 5 tabs 0RF pain (unknown) (no (unknown) (unknown) Tobacco + (units (unkn own) date) Substance Use unknown) (unknown) (no (unknown) (unknown) Tobacco Status (units (unknown) date) unknown) (unknown) (no (unknown) (unknown) Tubular adenoma of (units (unknown) date) colon (12/2014) unknown) (unknown) (no (unknown) (unknown) Using tylenol w (units (unknown) date) codeine for b/l unknown) ankle pain, seeing podiatry mid month (unknown) (no (unknown) (unknown) Visit Reasons: [place] date[place] F/U / discuss OMT unknown) (unknown) (no (unknown) (unknown) Vitals (units (unkno wn) date) unknown) (unknown) (no (unknown) (unknown) Was [facility] to fever and cough (unknown) (no (unknown) (unknown) Weight 162 lb 6 oz (units (unknown) date) unknown) (unknown) (no (unknown) (unknown) Would like to (units ( unknown) date) discuss OMT for unknown) chronic shoulder pain, was seeing Dr Pettit (unknown) (no (unknown) (unknown) [Rx Confirmed (units ( unknown) date) 11/17/22] unknown) (unknown) (no (unknown) (unknown) acetaminophen 300 (units (unknown) date) mg-codeine 30 mg unknown) tablet 1 tab PO Q6H PRN pain #5 tabs 11/17/22 (unknown) (no (unknown) (unknown) acute distress, (units (unknown) date) and able to unknown) transfer easily (unknown) (no (unknown) (unknown) albuterol (units (unkn own) date) [ALBUTEROL] Allergy unknown) (Unknown, Verified 11/17/22 14:53) (unknown) (no (unknown) (unknown) ankles. Will renew (units (unknown) date) tylenol w codeine, unknown) uses very judiciously. Will schedule for (unknown) (no (unknown) (unknown) bilaterally (units (un known) date) unknown) (unknown) (no (unknown) (unknown) bladder pain (units (u nknown) date) unknown) (unknown) (no (unknown) (unknown) cholecalciferol (units (unknown) date) (vitamin D3) 250 unknown) mcg (10,000 unit) tablet 10,000 tab PO QDAY ##0 (unknown) (no (unknown) (unknown) clonazepam 1 mg (units (unknown) date) tablet 0.5 mg PO unknown) BID PRN anxiety #10 tabs 02/19/22 [Rx Confirmed (unknown) (no (unknown) (unknown) congestion and (units (unknown) date) stomach problems unknown) (unknown) (no (unknown) (unknown) cyanocobalamin (units (unknown) date) (vitamin B-12) unknown) 1,000 mcg/mL injection solution 1,000 mcg IM (unknown) (no (unknown) (unknown) dexamethasone (units ( unknown) date) Adverse Reaction unknown) (Severe, Unverified 11/17/22 14:53) (unknown) (no (unknown) (unknown) folic acid 5 mg PO (units (unknown) date) 04/08/22 [History unknown) Confirmed 11/17/22] (unknown) (no (unknown) (unknown) gentle iron PO (units (unknown) date) 12/09/21 [History unknown) Confirmed 11/17/22] (unknown) (no (unknown) (unknown) gluten [GLUTEN] (units (unknown) date) Allergy (Unknown, unknown) Verified 11/17/22 14:53) (unknown) (no (unknown) (unknown) grass pollen (units (u nknown) date) Allergy (Severe, unknown) Verified 11/17/22 14:53) (unknown) (no (unknown) (unknown) have occurred. If (units (unknown) date) there are any unknown) questions, please contact the Medical Records (unknown) (no (unknown) (unknown) hydromorphone (units ( unknown) date) [HYDROMORPHONE] unknown) Allergy (Mild, Verified 11/17/22 14:53) (unknown) (no (unknown) (unknown) hydroxocobalamin (units (unknown) date) 1,000 mcg/mL unknown) intramuscular solution 500 mcg (0.5 mL) IM BID #30 (unknown) (no (unknown) (unknown) instability. Pain (units (unknown) date) worse than unknown) baseline. Does have upcoming podiatry to eval b/l (unknown) (no (unknown) (unknown) insulin (units (unkno wn) date) syringe-needle unknown) U-100 1 mL 30 gauge x 1/2' (BD Insulin Syringe Ultra (unknown) (no (unknown) (unknown) joints of left (units (unknown) date) foot; G89.29 - unknown) Other chronic pain (unknown) (no (unknown) (unknown) k2 with vit D PO (units (unknown) date) 12/09/21 [History unknown) Confirmed 11/17/22] (unknown) (no (unknown) (unknown) lithium [LITHIUM] (units (unknown) date) Allergy (Unknown, unknown) Verified 11/17/22 14:53) (unknown) (no (unknown) (unknown) loratadine 10 mg (units (unknown) date) tablet (Claritin) unknown) 10 mg PO DAILY PRN allergic symptoms #90 tabs (unknown) (no (unknown) (unknown) mL 08/04/22 [Rx (units (unknown) date) Confirmed 11/17/22] unknown) (unknown) (no (unknown) (unknown) magnesium oil and (units (unknown) date) epsom salt unknown) (unknown) (no (unknown) (unknown) may occur. (units (unk nown) date) Occasional unknown) wrong-word or 'sound-alike' substitutions may have (unknown) (no (unknown) (unknown) modifications. (units (unknown) date) unknown) (unknown) (no (unknown) (unknown) nights) (units (unkno wn) date) unknown) (unknown) (no (unknown) (unknown) normal gait (units (un known) date) unknown) (unknown) (no (unknown) (unknown) occurred due to (units (unknown) date) the inherent unknown) limitations of voice recognition software. Please (unknown) (no (unknown) (unknown) ondansetron HCl 4 (units (unknown) date) mg tablet (Zofran) unknown) 4 mg PO Q4HP PRN #20 tabs 11/25/17 [Rx (unknown) (no (unknown) (unknown) previously (units (unk nown) date) unknown) (unknown) (no (unknown) (unknown) read the note (units ( unknown) date) carefully and unknown) recognize, using context, where these substitutions (unknown) (no (unknown) (unknown) software. 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 (unknown) (no (unknown) (unknown) tachycardia (units (un known) date) unknown) (unknown) (no (unknown) (unknown) tizanidine 4 mg (units (unknown) date) tablet 4 mg PO Q8H unknown) PRN muscle spasticity #20 tabs 02/05/22 [Rx (unknown) (no (unknown) (unknown) tolerating PO, but (units (unknown) date) only from scratch unknown) cooking (unknown) (no (unknown) (unknown) vitamin c 1000 mg (units (unknown) date) PO 12/09/21 unknown) [History Confirmed 11/17/22] Result panel 9 (unknown) (no (unknown) (unknown) (no value) (units (unk nown) date) unknown) (unknown) (no (unknown) (unknown) [id number] (units (unkn own) date) unknown) (unknown) (no (unknown) (unknown) 11/24/22 (units (unkno wn) date) unknown) (unknown) (no (unknown) (unknown) Acute pain of (units ( unknown) date) left shoulder unknown) (unknown) (no (unknown) (unknown) Age/Sex: 67 / F (units (unknown) date) Date of Service: unknown) (unknown) (no (unknown) (unknown) Allergic (units (unkno wn) date) reaction to grass unknown) pollen (unknown) (no (unknown) (unknown) Allergic to cats (units (unknown) date) unknown) (unknown) (no (unknown) (unknown) Allergies (units (unkn own) date) unknown) (unknown) (no (unknown) (unknown) [place], [place] (units ( unknown) date) [id number] unknown) (unknown) (no (unknown) (unknown) Anesthesia (units (unk nown) date) unknown) (unknown) (no (unknown) (unknown) Angina pectoris (units (unknown) date) unknown) (unknown) (no (unknown) (unknown) Ankle pain, (units (un known) date) chronic (2014) unknown) (unknown) (no (unknown) (unknown) Ankle pain, (units (un known) date) chronic unknown) (unknown) (no (unknown) (unknown) Anxiety (units (unkno wn) date) unknown) (unknown) (no (unknown) (unknown) Attending Dr: (units ( unknown) date) Laura Parikh D.O. unknown) (unknown) (no (unknown) (unknown) Bipolar disorder (units (unknown) date) unknown) (unknown) (no (unknown) (unknown) Brain cancer (units (u nknown) date) unknown) (unknown) (no (unknown) (unknown) COVID Booster (units ( unknown) date) unknown) (unknown) (no (unknown) (unknown) Cervical somatic (units (unknown) date) dysfunction unknown) (unknown) (no (unknown) (unknown) Chicken pox (units (un known) date) unknown) (unknown) (no (unknown) (unknown) Child Age: 34 Hx (units (unknown) date) of appendectomy unknown) (unknown) (no (unknown) (unknown) Child Age: 37 (units ( unknown) date) Penicillin unknown) allergy (unknown) (no (unknown) (unknown) Child Age: 46 (units ( unknown) date) Hay fever unknown) (unknown) (no (unknown) (unknown) 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 (unknown) (no (unknown) (unknown) Chronic (units (unkno wn) date) left-sided unknown) thoracic back pain (unknown) (no (unknown) (unknown) 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 () (unknown) (no (unknown) (unknown) Compression (units (un known) date) fracture of body unknown) of thoracic vertebra () (unknown) (no (unknown) (unknown) Cranial somatic (units (unknown) date) dysfunction unknown) (unknown) (no (unknown) (unknown) DAIRY Allergy (units ( unknown) date) (Intermediate, unknown) Uncoded 11/17/22 14:53) (unknown) (no (unknown) (unknown) : 1955 (units (unknown) date) Acct:[id number] unknown) (unknown) (no (unknown) (unknown) Depression (units (unk nown) date) (09/21/14) unknown) (unknown) (no (unknown) (unknown) Depression (units (unk nown) date) unknown) (unknown) (no (unknown) (unknown) Dept at (units (unkno wn) date) . unknown) (unknown) (no (unknown) (unknown) Documented By: (units (unknown) date) Laura Parikh D.O. unknown) 11/24/22 1123 (unknown) (no (unknown) (unknown) Draft (units (unkno wn) date) unknown) (unknown) (no (unknown) (unknown) Environmental (units ( unknown) date) allergies unknown) (unknown) (no (unknown) (unknown) Esophageal (units (unk nown) date) stricture unknown) (unknown) (no (unknown) (unknown) Esophagitis (units (un known) date) unknown) (unknown) (no (unknown) (unknown) Family History (units (unknown) date) (Updated 06/08/18 unknown) @ 12:37 by Rabia Jacob) (unknown) (no (unknown) (unknown) Family Practice (units (unknown) date) Office Visit unknown) (unknown) (no (unknown) (unknown) Fibromyalgia (units (u nknown) date) unknown) (unknown) (no (unknown) (unknown) [facility] ([facility]) (unknown) (no (unknown) (unknown) Foot pain (2012) (units (unknown) date) unknown) (unknown) (no (unknown) (unknown) Gastropathy (units (un known) date) unknown) (unknown) (no (unknown) (unknown) Grandmother (units (un known) date) Diabetes mellitus unknown) (unknown) (no (unknown) (unknown) Hayfever (units (unkno wn) date) unknown) (unknown) (no (unknown) (unknown) Heart disease (units ( unknown) date) unknown) (unknown) (no (unknown) (unknown) Hemorrhoids (units (un known) date) unknown) (unknown) (no (unknown) (unknown) Hiatal hernia (units ( unknown) date) unknown) (unknown) (no (unknown) (unknown) High cholesterol (units (unknown) date) unknown) (unknown) (no (unknown) (unknown) History of (units (unk nown) date) diabetes mellitus unknown) (unknown) (no (unknown) (unknown) History of (units (unk nown) date) fundoplication unknown) (unknown) (no (unknown) (unknown) History of (units (unk nown) date) repair of hiatal unknown) hernia (11/2011) (unknown) (no (unknown) (unknown) History of (units (unk nown) date) tonsillectomy unknown) (1971) (unknown) (no (unknown) (unknown) Hives (units (unkno wn) date) unknown) (unknown) (no (unknown) (unknown) Hypertension (units (u nknown) date) unknown) (unknown) (no (unknown) (unknown) Hypothyroidism (units (unknown) date) unknown) (unknown) (no (unknown) (unknown) IBS (irritable (units (unknown) date) bowel syndrome) unknown) (unknown) (no (unknown) (unknown) 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) unknown) (unknown) (no (unknown) (unknown) Intake Note: (units (u nknown) date) unknown) (unknown) (no (unknown) (unknown) Intake performed (units (unknown) date) by: Yara Schmitz unknown) D (unknown) (no (unknown) (unknown) Intake (units (unkno wn) date) unknown) (unknown) (no (unknown) (unknown) Intake- Clincial (units (unknown) date) Staff unknown) (unknown) (no (unknown) (unknown) Last Menstural (units (unknown) date) Cycle + Details unknown) (unknown) (no (unknown) (unknown) Liver cancer (units (u nknown) date) unknown) (unknown) (no (unknown) (unknown) Loc: [facility] (units (unkno wn) date) unknown) (unknown) (no (unknown) (unknown) Lumbar facet (units (u nknown) date) arthropathy unknown) (2013) (unknown) (no (unknown) (unknown) Lumbar region (units ( unknown) date) somatic unknown) dysfunction (unknown) (no (unknown) (unknown) Lung cancer (units (un known) date) unknown) (unknown) (no (unknown) (unknown) Medical History (units (unknown) date) (Updated 11/17/22 unknown) @ 16:55 by Laura Parikh DO) (unknown) (no (unknown) (unknown) Mother (units (unknown) date) Diabetes mellitus unknown) (unknown) (no (unknown) (unknown) OMT. (units (unkno wn) date) unknown) (unknown) (no (unknown) (unknown) Obesity (units (unkno wn) date) unknown) (unknown) (no (unknown) (unknown) Osteoarthritis (units (unknown) date) (2012) unknown) (unknown) (no (unknown) (unknown) 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 unknown) (unknown) (no (unknown) (unknown) Osteoporosis (units (u nknown) date) unknown) (unknown) (no (unknown) (unknown) Other Menstrual (units (unknown) date) Period: unknown) Postmenopausal (unknown) (no (unknown) (unknown) PFSH (units (unkno wn) date) unknown) (unknown) (no (unknown) (unknown) PTSD (units (unkno wn) date) (post-traumatic unknown) stress disorder) (unknown) (no (unknown) (unknown) Patient: (units (unkno wn) date) Whitley Oakes unknown) MR#: M (unknown) (no (unknown) (unknown) Pelvic somatic (units (unknown) date) dysfunction unknown) (unknown) (no (unknown) (unknown) Pernicious (units (unk nown) date) anemia unknown) (unknown) (no (unknown) (unknown) Personality (units (un known) date) disorder unknown) (unknown) (no (unknown) (unknown) 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) unknown) (unknown) (no (unknown) (unknown) Reason For Visit (units (unknown) date) unknown) (unknown) (no (unknown) (unknown) Right shoulder (units (unknown) date) pain unknown) (unknown) (no (unknown) (unknown) SWELLING (units (unkno wn) date) unknown) (unknown) (no (unknown) (unknown) Sacral region (units ( unknown) date) somatic unknown) dysfunction (unknown) (no (unknown) (unknown) Sacroiliitis (units (u nknown) date) (2012) unknown) (unknown) (no (unknown) (unknown) Seborrheic (units (unk nown) date) keratosis unknown) (unknown) (no (unknown) (unknown) Segmental and (units ( unknown) date) somatic unknown) dysfunction of abdomen and other regions (unknown) (no (unknown) (unknown) Signed By: (units (unk nown) date) unknown) (unknown) (no (unknown) (unknown) Sister (units (unknown) date) Diabetes mellitus unknown) (unknown) (no (unknown) (unknown) Smoking Status: (units (unknown) date) Former smoker unknown) (unknown) (no (unknown) (unknown) Status post (units (un known) date) colonoscopy unknown) (09/2019) (unknown) (no (unknown) (unknown) Status post (units (un known) date) endoscopy unknown) (12/2019) (unknown) (no (unknown) (unknown) Status post (units (un known) date) reduction unknown) mammoplasty (07/2010) (unknown) (no (unknown) (unknown) Stroke (units (unkno wn) date) unknown) (unknown) (no (unknown) (unknown) Substance abuse (units (unknown) date) unknown) (unknown) (no (unknown) (unknown) Surgical History (units (unknown) date) (Updated 01/18/20 unknown) @ 15:38 by Summer Price DO) (unknown) (no (unknown) (unknown) This note may (units ( unknown) date) have been all or unknown) partially generated using voice recognition (unknown) (no (unknown) (unknown) Thoracic region (units (unknown) date) somatic unknown) dysfunction (unknown) (no (unknown) (unknown) Tinnitus (units (unkno wn) date) unknown) (unknown) (no (unknown) (unknown) Tobacco + (units (unkn own) date) Substance Use unknown) (unknown) (no (unknown) (unknown) Tobacco Status (units (unknown) date) unknown) (unknown) (no (unknown) (unknown) Tubular adenoma (units (unknown) date) of colon unknown) (12/2014) (unknown) (no (unknown) (unknown) Visit Reasons: (units (unknown) date) OMT #1/covid unknown) booster (unknown) (no (unknown) (unknown) albuterol (units (unkn own) date) [ALBUTEROL] unknown) Allergy (Unknown, Verified 11/17/22 14:53) (unknown) (no (unknown) (unknown) bladder pain (units (u nknown) date) unknown) (unknown) (no (unknown) (unknown) congestion and (units (unknown) date) stomach problems unknown) (unknown) (no (unknown) (unknown) dexamethasone (units ( unknown) date) Adverse Reaction unknown) (Severe, Unverified 11/17/22 14:53) (unknown) (no (unknown) (unknown) gluten [GLUTEN] (units (unknown) date) Allergy (Unknown, unknown) Verified 11/17/22 14:53) (unknown) (no (unknown) (unknown) grass pollen (units (u nknown) date) Allergy (Severe, unknown) Verified 11/17/22 14:53) (unknown) (no (unknown) (unknown) have occurred. (units (unknown) date) If there are any unknown) questions, please contact the Medical Records (unknown) (no (unknown) (unknown) hydromorphone (units ( unknown) date) [HYDROMORPHONE] unknown) Allergy (Mild, Verified 11/17/22 14:53) (unknown) (no (unknown) (unknown) lithium (units (unkno wn) date) [LITHIUM] Allergy unknown) (Unknown, Verified 11/17/22 14:53) (unknown) (no (unknown) (unknown) may occur. (units (unk nown) date) Occasional unknown) wrong-word or 'sound-alike' substitutions may have (unknown) (no (unknown) (unknown) occurred due to (units (unknown) date) the inherent unknown) limitations of voice recognition software. Please (unknown) (no (unknown) (unknown) read the note (units ( unknown) date) carefully and unknown) recognize, using context, where these substitutions (unknown) (no (unknown) (unknown) software. 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 errors (unknown) (no (unknown) (unknown) tachycardia (units (un known) date) unknown) Result panel 10 (unknown) (no (unknown) (unknown) (no value) (units (unk nown) date) unknown) (unknown) (no (unknown) (unknown) [id number] (units (unkn own) date) unknown) (unknown) (no (unknown) (unknown) 11/24/22 (units (unkno wn) date) unknown) (unknown) (no (unknown) (unknown) 11/24/22] (units (unkn own) date) unknown) (unknown) (no (unknown) (unknown) 12/26/17 [History (units (unknown) date) Confirmed 11/24/22] unknown) (unknown) (no (unknown) (unknown) 03/25/22 [Rx (units (u nknown) date) Confirmed 11/24/22] unknown) (unknown) (no (unknown) (unknown) Acute pain of left (units (unknown) date) shoulder unknown) (unknown) (no (unknown) (unknown) Age/Sex: 67 / F (units (unknown) date) Date of Service: unknown) (unknown) (no (unknown) (unknown) Allergic reaction (units (unknown) date) to grass pollen unknown) (unknown) (no (unknown) (unknown) Allergic to cats (units (unknown) date) unknown) (unknown) (no (unknown) (unknown) Allergies (units (unkn own) date) unknown) (unknown) (no (unknown) (unknown) [place], [place] (units ( unknown) date) [id number] unknown) (unknown) (no (unknown) (unknown) Anesthesia (units (unk nown) date) unknown) (unknown) (no (unknown) (unknown) Angina pectoris (units (unknown) date) unknown) (unknown) (no (unknown) (unknown) Ankle pain, (units (un known) date) chronic (2014) unknown) (unknown) (no (unknown) (unknown) Ankle pain, (units (un known) date) chronic unknown) (unknown) (no (unknown) (unknown) Anxiety (units (unkno wn) date) unknown) (unknown) (no (unknown) (unknown) Attending Dr: Laura (units (unknown) date) Jl D.OElliott unknown) (unknown) (no (unknown) (unknown) Bipolar disorder (units (unknown) date) unknown) (unknown) (no (unknown) (unknown) Brain cancer (units (u nknown) date) unknown) (unknown) (no (unknown) (unknown) COVID Booster (units ( unknown) date) 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 (unknown) (no (unknown) (unknown) Chronic left-sided (units (unknown) date) thoracic back pain unknown) (unknown) (no (unknown) (unknown) 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 [id number] () (unknown) (no (unknown) (unknown) Compression (units (un known) date) fracture of body of unknown) thoracic vertebra () (unknown) (no (unknown) (unknown) Confirmed (units (unkn own) date) 11/24/22] unknown) (unknown) (no (unknown) (unknown) Cranial somatic (units (unknown) date) dysfunction unknown) (unknown) (no (unknown) (unknown) DAIRY Allergy (units ( unknown) date) (Intermediate, unknown) Uncoded 11/24/22 11:27) (unknown) (no (unknown) (unknown) : 1955 (units (unknown) date) Acct:[id number] unknown) (unknown) (no (unknown) (unknown) Depression (units (unk nown) date) (09/21/14) unknown) (unknown) (no (unknown) (unknown) Depression (units (unk nown) date) unknown) (unknown) (no (unknown) (unknown) Dept at (units (unkno wn) date) . unknown) (unknown) (no (unknown) (unknown) Disabled Parking (units (unknown) date) Permit #1 ea unknown) 04/08/22 [Rx Confirmed 11/24/22] (unknown) (no (unknown) (unknown) Documented By: (units (unknown) date) Laura Parikh D.O. unknown) 11/24/22 1123 (unknown) (no (unknown) (unknown) Draft (units (unkno wn) date) unknown) (unknown) (no (unknown) (unknown) Environmental (units ( unknown) date) allergies unknown) (unknown) (no (unknown) (unknown) Esophageal (units (unk nown) date) stricture unknown) (unknown) (no (unknown) (unknown) Esophagitis (units (un known) date) unknown) (unknown) (no (unknown) (unknown) Family History (units (unknown) date) (Updated 06/08/18 @ unknown) 12:37 by Rabia Jacob) (unknown) (no (unknown) (unknown) Family Practice (units (unknown) date) Office Visit unknown) (unknown) (no (unknown) (unknown) Fibromyalgia (units (u nknown) date) unknown) (unknown) (no (unknown) (unknown) [facility] date[facility] unknown) (unknown) (no (unknown) (unknown) Fine) See Rx (units (u nknown) date) Instructions .Route unknown) .COMPLEX #200 ea 08/04/22 [Rx Confirmed (unknown) (no (unknown) (unknown) Foot pain (2011) (units (unknown) date) unknown) (unknown) (no (unknown) (unknown) Gastropathy (units (un known) date) unknown) (unknown) (no (unknown) (unknown) Grandmother (units (un known) date) Diabetes mellitus unknown) (unknown) (no (unknown) (unknown) Hayfever (units (unkno wn) date) unknown) (unknown) (no (unknown) (unknown) Heart disease (units ( unknown) date) unknown) (unknown) (no (unknown) (unknown) Hemorrhoids (units (un known) date) unknown) (unknown) (no (unknown) (unknown) Hiatal hernia (units ( unknown) date) unknown) (unknown) (no (unknown) (unknown) High cholesterol (units (unknown) date) unknown) (unknown) (no (unknown) (unknown) History of (units (unk nown) date) diabetes mellitus unknown) (unknown) (no (unknown) (unknown) History of (units (unk nown) date) fundoplication unknown) (unknown) (no (unknown) (unknown) History of repair (units (unknown) date) of hiatal hernia unknown) (11/2011) (unknown) (no (unknown) (unknown) History of (units (unk nown) date) tonsillectomy unknown) (1972) (unknown) (no (unknown) (unknown) Hives (units (unkno wn) date) unknown) (unknown) (no (unknown) (unknown) Hypertension (units (u nknown) date) unknown) (unknown) (no (unknown) (unknown) Hypothyroidism (units (unknown) date) unknown) (unknown) (no (unknown) (unknown) IBS (irritable (units (unknown) date) bowel syndrome) unknown) (unknown) (no (unknown) (unknown) 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) unknown) (unknown) (no (unknown) (unknown) Intake Note: (units (u nknown) date) unknown) (unknown) (no (unknown) (unknown) Intake performed (units (unknown) date) by: Yara Schmitz unknown) (unknown) (no (unknown) (unknown) Intake (units (unkno wn) date) unknown) (unknown) (no (unknown) (unknown) Intake- Clincial (units (unknown) date) Staff unknown) (unknown) (no (unknown) (unknown) Last Menstural (units (unknown) date) Cycle + Details unknown) (unknown) (no (unknown) (unknown) Liver cancer (units (u nknown) date) unknown) (unknown) (no (unknown) (unknown) Loc: [facility] (units (unkno wn) date) unknown) (unknown) (no (unknown) (unknown) Lumbar facet (units (u nknown) date) arthropathy (2014) unknown) (unknown) (no (unknown) (unknown) Lumbar region (units ( unknown) date) somatic dysfunction unknown) (unknown) (no (unknown) (unknown) Lung cancer (units (un known) date) unknown) (unknown) (no (unknown) (unknown) Medical History (units (unknown) date) (Updated 11/17/22 @ unknown) 16:55 by Laura Parikh DO) (unknown) (no (unknown) (unknown) Medications (units (un known) date) unknown) (unknown) (no (unknown) (unknown) Mother (units (unknown) date) Diabetes mellitus unknown) (unknown) (no (unknown) (unknown) OMT. (units (unkno wn) date) unknown) (unknown) (no (unknown) (unknown) Obesity (units (unkno wn) date) unknown) (unknown) (no (unknown) (unknown) Osteoarthritis (units (unknown) date) (2012) unknown) (unknown) (no (unknown) (unknown) 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 unknown) (unknown) (no (unknown) (unknown) Osteoporosis (units (u nknown) date) unknown) (unknown) (no (unknown) (unknown) Other Menstrual (units (unknown) date) Period: unknown) Postmenopausal (unknown) (no (unknown) (unknown) PFSH (units (unkno wn) date) unknown) (unknown) (no (unknown) (unknown) PTSD (units (unkno wn) date) (post-traumatic unknown) stress disorder) (unknown) (no (unknown) (unknown) Patient: (units (unkno wn) date) Whitley Oakes unknown) MR#: M (unknown) (no (unknown) (unknown) Pelvic somatic (units (unknown) date) dysfunction unknown) (unknown) (no (unknown) (unknown) Pernicious anemia (units (unknown) date) unknown) (unknown) (no (unknown) (unknown) Personality (units (un known) date) disorder unknown) (unknown) (no (unknown) (unknown) [id number] #1 mL (units (unknown) date) 08/04/22 [Rx unknown) Confirmed 11/24/22] (unknown) (no (unknown) (unknown) RLS (restless legs (units (unknown) date) syndrome) unknown) (unknown) (no (unknown) (unknown) Reason For Visit (units (unknown) date) unknown) (unknown) (no (unknown) (unknown) Review/Discuss. (units (unknown) date) unknown) (unknown) (no (unknown) (unknown) Right shoulder (units (unknown) date) pain unknown) (unknown) (no (unknown) (unknown) SWELLING (units (unkno wn) date) unknown) (unknown) (no (unknown) (unknown) Sacral region (units ( unknown) date) somatic dysfunction unknown) (unknown) (no (unknown) (unknown) Sacroiliitis (units (u nknown) date) (2012) unknown) (unknown) (no (unknown) (unknown) Seborrheic (units (unk nown) date) keratosis unknown) (unknown) (no (unknown) (unknown) Segmental and (units ( unknown) date) somatic dysfunction unknown) of abdomen and other regions (unknown) (no (unknown) (unknown) Signed By: (units (unk nown) date) unknown) (unknown) (no (unknown) (unknown) Sister (units (unknown) date) Diabetes mellitus unknown) (unknown) (no (unknown) (unknown) Smoking Status: (units (unknown) date) Former smoker unknown) (unknown) (no (unknown) (unknown) Status post (units (un known) date) colonoscopy unknown) (09/2019) (unknown) (no (unknown) (unknown) Status post (units (un known) date) endoscopy (12/2019) unknown) (unknown) (no (unknown) (unknown) Status post (units (un known) date) reduction unknown) mammoplasty (07/2010) (unknown) (no (unknown) (unknown) Stroke (units (unkno wn) date) unknown) (unknown) (no (unknown) (unknown) Substance abuse (units (unknown) date) unknown) (unknown) (no (unknown) (unknown) Surgical History (units (unknown) date) (Updated 01/18/20 @ unknown) 15:38 by Summer Price DO) (unknown) (no (unknown) (unknown) This note may have (units (unknown) date) been all or unknown) partially generated using voice recognition (unknown) (no (unknown) (unknown) Thoracic region (units (unknown) date) somatic dysfunction unknown) (unknown) (no (unknown) (unknown) Tinnitus (units (unkno wn) date) unknown) (unknown) (no (unknown) (unknown) Tobacco + (units (unkn own) date) Substance Use unknown) (unknown) (no (unknown) (unknown) Tobacco Status (units (unknown) date) unknown) (unknown) (no (unknown) (unknown) Tubular adenoma of (units (unknown) date) colon (12/2014) unknown) (unknown) (no (unknown) (unknown) Visit Reasons: OMT (units (unknown) date) #1/covid booster unknown) (unknown) (no (unknown) (unknown) [Rx Confirmed (units ( unknown) date) 11/24/22] unknown) (unknown) (no (unknown) (unknown) acetaminophen 300 (units (unknown) date) mg-codeine 30 mg unknown) tablet 1 tab PO Q6H PRN pain #5 tabs 11/17/22 (unknown) (no (unknown) (unknown) albuterol (units (unkn own) date) [ALBUTEROL] Allergy unknown) (Unknown, Verified 11/24/22 11:27) (unknown) (no (unknown) (unknown) bladder pain (units (u nknown) date) unknown) (unknown) (no (unknown) (unknown) cholecalciferol (units (unknown) date) (vitamin D3) 250 unknown) mcg (10,000 unit) tablet 10,000 tab PO QDAY ##0 (unknown) (no (unknown) (unknown) clonazepam 1 mg (units (unknown) date) tablet 0.5 mg PO unknown) BID PRN anxiety #10 tabs 02/19/22 [Rx Confirmed (unknown) (no (unknown) (unknown) congestion and (units (unknown) date) stomach problems unknown) (unknown) (no (unknown) (unknown) cyanocobalamin (units (unknown) date) (vitamin B-12) unknown) 1,000 mcg/mL injection solution 1,000 mcg IM (unknown) (no (unknown) (unknown) dexamethasone (units ( unknown) date) Adverse Reaction unknown) (Severe, Verified 11/24/22 11:27) (unknown) (no (unknown) (unknown) folic acid 5 mg PO (units (unknown) date) 04/08/22 [History unknown) Confirmed 11/24/22] (unknown) (no (unknown) (unknown) gentle iron PO (units (unknown) date) 12/09/21 [History unknown) Confirmed 11/24/22] (unknown) (no (unknown) (unknown) gluten [GLUTEN] (units (unknown) date) Allergy (Unknown, unknown) Verified 11/24/22 11:27) (unknown) (no (unknown) (unknown) grass pollen (units (u nknown) date) Allergy (Severe, unknown) Verified 11/24/22 11:27) (unknown) (no (unknown) (unknown) have occurred. If (units (unknown) date) there are any unknown) questions, please contact the Medical Records (unknown) (no (unknown) (unknown) hydromorphone (units ( unknown) date) [HYDROMORPHONE] unknown) Allergy (Mild, Verified 11/24/22 11:27) (unknown) (no (unknown) (unknown) hydroxocobalamin (units (unknown) date) 1,000 mcg/mL unknown) intramuscular solution 500 mcg (0.5 mL) IM BID #30 (unknown) (no (unknown) (unknown) insulin (units (unkno wn) date) syringe-needle unknown) U-100 1 mL 30 gauge x 1/2' (BD Insulin Syringe Ultra (unknown) (no (unknown) (unknown) k2 with vit D PO (units (unknown) date) 12/09/21 [History unknown) Confirmed 11/24/22] (unknown) (no (unknown) (unknown) lithium [LITHIUM] (units (unknown) date) Allergy (Unknown, unknown) Verified 11/24/22 11:27) (unknown) (no (unknown) (unknown) loratadine 10 mg (units (unknown) date) tablet (Claritin) unknown) 10 mg PO DAILY PRN allergic symptoms #90 tabs (unknown) (no (unknown) (unknown) mL 08/04/22 [Rx (units (unknown) date) Confirmed 11/24/22] unknown) (unknown) (no (unknown) (unknown) may occur. (units (unk nown) date) Occasional unknown) wrong-word or 'sound-alike' substitutions may have (unknown) (no (unknown) (unknown) occurred due to (units (unknown) date) the inherent unknown) limitations of voice recognition software. Please (unknown) (no (unknown) (unknown) ondansetron HCl 4 (units (unknown) date) mg tablet (Zofran) unknown) 4 mg PO Q4HP PRN #20 tabs 11/25/17 [Rx (unknown) (no (unknown) (unknown) read the note (units ( unknown) date) carefully and unknown) recognize, using context, where these substitutions (unknown) (no (unknown) (unknown) software. 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 (unknown) (no (unknown) (unknown) tachycardia (units (un known) date) unknown) (unknown) (no (unknown) (unknown) tizanidine 4 mg (units (unknown) date) tablet 4 mg PO Q8H unknown) PRN muscle spasticity #20 tabs 02/05/22 [Rx (unknown) (no (unknown) (unknown) vitamin c 1000 mg (units (unknown) date) PO 12/09/21 unknown) [History Confirmed 11/24/22] Result panel 11 (unknown) (no (unknown) (unknown) (no value) (units (unk nown) date) unknown) (unknown) (no (unknown) (unknown) [id number] (units (unkn own) date) unknown) (unknown) (no (unknown) (unknown) 11/24/22 (units (unkno wn) date) unknown) (unknown) (no (unknown) (unknown) 11/24/22] (units (unkn own) date) unknown) (unknown) (no (unknown) (unknown) 12/26/17 [History (units (unknown) date) Confirmed 11/24/22] unknown) (unknown) (no (unknown) (unknown) 03/25/22 [Rx (units (u nknown) date) Confirmed 11/24/22] unknown) (unknown) (no (unknown) (unknown) 11:33 (units (unkno wn) date) unknown) (unknown) (no (unknown) (unknown) Acute pain of left (units (unknown) date) shoulder unknown) (unknown) (no (unknown) (unknown) Age/Sex: 67 / F (units (unknown) date) Date of Service: unknown) (unknown) (no (unknown) (unknown) Allergic reaction (units (unknown) date) to grass pollen unknown) (unknown) (no (unknown) (unknown) Allergic to cats (units (unknown) date) unknown) (unknown) (no (unknown) (unknown) Allergies (units (unkn own) date) unknown) (unknown) (no (unknown) (unknown) [place], [place] (units ( unknown) date) [id number] unknown) (unknown) (no (unknown) (unknown) Anesthesia (units (unk nown) date) unknown) (unknown) (no (unknown) (unknown) Angina pectoris (units (unknown) date) unknown) (unknown) (no (unknown) (unknown) Ankle pain, (units (un known) date) chronic (2014) unknown) (unknown) (no (unknown) (unknown) Ankle pain, (units (un known) date) chronic unknown) (unknown) (no (unknown) (unknown) Anxiety (units (unkno wn) date) unknown) (unknown) (no (unknown) (unknown) Attending Dr: Laura (units (unknown) date) Weeks D.O. unknown) (unknown) (no (unknown) (unknown) BP 140/84 (units (unkn own) date) unknown) (unknown) (no (unknown) (unknown) Bipolar disorder (units (unknown) date) unknown) (unknown) (no (unknown) (unknown) Blood Pressure (units (unknown) date) Location Lt unknown) brachial (unknown) (no (unknown) (unknown) Brain cancer (units (u nknown) date) unknown) (unknown) (no (unknown) (unknown) COVID Booster -- (units (unknown) date) left arm preferred. 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 (unknown) (no (unknown) (unknown) Chronic left-sided (units (unknown) date) thoracic back pain unknown) (unknown) (no (unknown) (unknown) Comment PT (units (unk nown) date) declined weight unknown) today (unknown) (no (unknown) (unknown) 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 (-12/2016) (unknown) (no (unknown) (unknown) Compression (units (un known) date) fracture of body of unknown) thoracic vertebra (-04/2021) (unknown) (no (unknown) (unknown) Confirmed (units (unkn own) date) 11/24/22] unknown) (unknown) (no (unknown) (unknown) Cranial somatic (units (unknown) date) dysfunction unknown) (unknown) (no (unknown) (unknown) DAIRY Allergy (units ( unknown) date) (Intermediate, unknown) Uncoded 11/24/22 11:27) (unknown) (no (unknown) (unknown) : 1955 (units (unknown) date) Acct:[id number] unknown) (unknown) (no (unknown) (unknown) Depression (units (unk nown) date) (09/21/14) unknown) (unknown) (no (unknown) (unknown) Depression (units (unk nown) date) unknown) (unknown) (no (unknown) (unknown) Dept at (units (unkno wn) date) . unknown) (unknown) (no (unknown) (unknown) Disabled Parking (units (unknown) date) Permit #1 ea unknown) 04/08/22 [Rx Confirmed 11/24/22] (unknown) (no (unknown) (unknown) Documented By: (units (unknown) date) Laura Parikh D.O. unknown) 11/24/22 1123 (unknown) (no (unknown) (unknown) Draft (units (unkno wn) date) unknown) (unknown) (no (unknown) (unknown) Environmental (units ( unknown) date) allergies unknown) (unknown) (no (unknown) (unknown) Esophageal (units (unk nown) date) stricture unknown) (unknown) (no (unknown) (unknown) Esophagitis (units (un known) date) unknown) (unknown) (no (unknown) (unknown) Family History (units (unknown) date) (Updated 06/08/18 @ unknown) 12:37 by Rabia Jacob) (unknown) (no (unknown) (unknown) Family Practice (units (unknown) date) Office Visit unknown) (unknown) (no (unknown) (unknown) Fibromyalgia (units (u nknown) date) unknown) (unknown) (no (unknown) (unknown) [facility]) (unknown) (no (unknown) (unknown) Fine) See Rx (units (u nknown) date) Instructions .Route unknown) .COMPLEX #200 ea 08/04/22 [Rx Confirmed (unknown) (no (unknown) (unknown) Foot pain (2011) (units (unknown) date) unknown) (unknown) (no (unknown) (unknown) Gastropathy (units (un known) date) unknown) (unknown) (no (unknown) (unknown) Grandmother (units (un known) date) Diabetes mellitus unknown) (unknown) (no (unknown) (unknown) Hayfever (units (unkno wn) date) unknown) (unknown) (no (unknown) (unknown) Heart disease (units ( unknown) date) unknown) (unknown) (no (unknown) (unknown) Height 5 ft 3.5 in (units (unknown) date) unknown) (unknown) (no (unknown) (unknown) Hemorrhoids (units (un known) date) unknown) (unknown) (no (unknown) (unknown) Hiatal hernia (units ( unknown) date) unknown) (unknown) (no (unknown) (unknown) High cholesterol (units (unknown) date) unknown) (unknown) (no (unknown) (unknown) History of (units (unk nown) date) diabetes mellitus unknown) (unknown) (no (unknown) (unknown) History of (units (unk nown) date) fundoplication unknown) (unknown) (no (unknown) (unknown) History of repair (units (unknown) date) of hiatal hernia unknown) (11/2011) (unknown) (no (unknown) (unknown) History of (units (unk nown) date) tonsillectomy unknown) (1972) (unknown) (no (unknown) (unknown) Hives (units (unkno wn) date) unknown) (unknown) (no (unknown) (unknown) Hypertension (units (u nknown) date) unknown) (unknown) (no (unknown) (unknown) Hypothyroidism (units (unknown) date) unknown) (unknown) (no (unknown) (unknown) IBS (irritable (units (unknown) date) bowel syndrome) unknown) (unknown) (no (unknown) (unknown) 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) unknown) (unknown) (no (unknown) (unknown) Intake Note: (units (u nknown) date) unknown) (unknown) (no (unknown) (unknown) Intake performed (units (unknown) date) by: Yara Schmitz unknown) (unknown) (no (unknown) (unknown) Intake (units (unkno wn) date) unknown) (unknown) (no (unknown) (unknown) Intake- Clincial (units (unknown) date) Staff unknown) (unknown) (no (unknown) (unknown) Last Menstural (units (unknown) date) Cycle + Details unknown) (unknown) (no (unknown) (unknown) Liver cancer (units (u nknown) date) unknown) (unknown) (no (unknown) (unknown) Loc: [facility] (units (unkno wn) date) unknown) (unknown) (no (unknown) (unknown) Lumbar facet (units (u nknown) date) arthropathy (2014) unknown) (unknown) (no (unknown) (unknown) Lumbar region (units ( unknown) date) somatic dysfunction unknown) (unknown) (no (unknown) (unknown) Lung cancer (units (un known) date) unknown) (unknown) (no (unknown) (unknown) Medical History (units (unknown) date) (Updated 11/17/22 @ unknown) 16:55 by Laura Parikh DO) (unknown) (no (unknown) (unknown) Medications (units (un known) date) unknown) (unknown) (no (unknown) (unknown) Mother (units (unknown) date) Diabetes mellitus unknown) (unknown) (no (unknown) (unknown) OMT. (units (unkno wn) date) unknown) (unknown) (no (unknown) (unknown) Obesity (units (unkno wn) date) unknown) (unknown) (no (unknown) (unknown) Osteoarthritis (units (unknown) date) (2012) unknown) (unknown) (no (unknown) (unknown) 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 unknown) (unknown) (no (unknown) (unknown) Osteoporosis (units (u nknown) date) unknown) (unknown) (no (unknown) (unknown) Other Menstrual (units (unknown) date) Period: unknown) Postmenopausal (unknown) (no (unknown) (unknown) Oxygen Delivery (units (unknown) date) Method room air unknown) (unknown) (no (unknown) (unknown) PFSH (units (unkno wn) date) unknown) (unknown) (no (unknown) (unknown) PTSD (units (unkno wn) date) (post-traumatic unknown) stress disorder) (unknown) (no (unknown) (unknown) Patient: (units (unkno wn) date) Whitley Oakes unknown) MR#: M (unknown) (no (unknown) (unknown) Pelvic somatic (units (unknown) date) dysfunction unknown) (unknown) (no (unknown) (unknown) Pernicious anemia (units (unknown) date) unknown) (unknown) (no (unknown) (unknown) Personality (units (un known) date) disorder unknown) (unknown) (no (unknown) (unknown) Position Sitting (units (unknown) date) unknown) (unknown) (no (unknown) (unknown) Pulse 112 H (units (un known) date) unknown) (unknown) (no (unknown) (unknown) Pulse Oximetry (%) (units (unknown) date) 97 unknown) (unknown) (no (unknown) (unknown) Pulse Source (units (u nknown) date) Monitor unknown) (unknown) (no (unknown) (unknown) N0MYHVRS #1 mL (units (unknown) date) 08/04/22 [Rx unknown) Confirmed 11/24/22] (unknown) (no (unknown) (unknown) RLS (restless legs (units (unknown) date) syndrome) unknown) (unknown) (no (unknown) (unknown) Reason For Visit (units (unknown) date) unknown) (unknown) (no (unknown) (unknown) Review/Discuss. (units (unknown) date) unknown) (unknown) (no (unknown) (unknown) Right shoulder (units (unknown) date) pain unknown) (unknown) (no (unknown) (unknown) SWELLING (units (unkno wn) date) unknown) (unknown) (no (unknown) (unknown) Sacral region (units ( unknown) date) somatic dysfunction unknown) (unknown) (no (unknown) (unknown) Sacroiliitis (units (u nknown) date) (2012) unknown) (unknown) (no (unknown) (unknown) Seborrheic (units (unk nown) date) keratosis unknown) (unknown) (no (unknown) (unknown) Segmental and (units ( unknown) date) somatic dysfunction unknown) of abdomen and other regions (unknown) (no (unknown) (unknown) Signed By: (units (unk nown) date) unknown) (unknown) (no (unknown) (unknown) Sister (units (unknown) date) Diabetes mellitus unknown) (unknown) (no (unknown) (unknown) Smoking Status: (units (unknown) date) Former smoker unknown) (unknown) (no (unknown) (unknown) Status post (units (un known) date) colonoscopy unknown) (09/2019) (unknown) (no (unknown) (unknown) Status post (units (un known) date) endoscopy (12/2019) unknown) (unknown) (no (unknown) (unknown) Status post (units (un known) date) reduction unknown) mammoplasty (07/2010) (unknown) (no (unknown) (unknown) Stroke (units (unkno wn) date) unknown) (unknown) (no (unknown) (unknown) Substance abuse (units (unknown) date) unknown) (unknown) (no (unknown) (unknown) Surgical History (units (unknown) date) (Updated 01/18/20 @ unknown) 15:38 by Summer Price DO) (unknown) (no (unknown) (unknown) This note may have (units (unknown) date) been all or unknown) partially generated using voice recognition (unknown) (no (unknown) (unknown) Thoracic region (units (unknown) date) somatic dysfunction unknown) (unknown) (no (unknown) (unknown) Tinnitus (units (unkno wn) date) unknown) (unknown) (no (unknown) (unknown) Tobacco + (units (unkn own) date) Substance Use unknown) (unknown) (no (unknown) (unknown) Tobacco Status (units (unknown) date) unknown) (unknown) (no (unknown) (unknown) Tubular adenoma of (units (unknown) date) colon (12/2014) unknown) (unknown) (no (unknown) (unknown) Visit Reasons: OMT (units (unknown) date) #1/covid booster unknown) (unknown) (no (unknown) (unknown) Vitals (units (unkno wn) date) unknown) (unknown) (no (unknown) (unknown) [Rx Confirmed (units ( unknown) date) 11/24/22] unknown) (unknown) (no (unknown) (unknown) acetaminophen 300 (units (unknown) date) mg-codeine 30 mg unknown) tablet 1 tab PO Q6H PRN pain #5 tabs 11/17/22 (unknown) (no (unknown) (unknown) albuterol (units (unkn own) date) [ALBUTEROL] Allergy unknown) (Unknown, Verified 11/24/22 11:27) (unknown) (no (unknown) (unknown) bladder pain (units (u nknown) date) unknown) (unknown) (no (unknown) (unknown) cholecalciferol (units (unknown) date) (vitamin D3) 250 unknown) mcg (10,000 unit) tablet 10,000 tab PO QDAY ##0 (unknown) (no (unknown) (unknown) clonazepam 1 mg (units (unknown) date) tablet 0.5 mg PO unknown) BID PRN anxiety #10 tabs 02/19/22 [Rx Confirmed (unknown) (no (unknown) (unknown) congestion and (units (unknown) date) stomach problems unknown) (unknown) (no (unknown) (unknown) cyanocobalamin (units (unknown) date) (vitamin B-12) unknown) 1,000 mcg/mL injection solution 1,000 mcg IM (unknown) (no (unknown) (unknown) dexamethasone (units ( unknown) date) Adverse Reaction unknown) (Severe, Verified 11/24/22 11:27) (unknown) (no (unknown) (unknown) folic acid 5 mg PO (units (unknown) date) 04/08/22 [History unknown) Confirmed 11/24/22] (unknown) (no (unknown) (unknown) gentle iron PO (units (unknown) date) 12/09/21 [History unknown) Confirmed 11/24/22] (unknown) (no (unknown) (unknown) gluten [GLUTEN] (units (unknown) date) Allergy (Unknown, unknown) Verified 11/24/22 11:27) (unknown) (no (unknown) (unknown) grass pollen (units (u nknown) date) Allergy (Severe, unknown) Verified 11/24/22 11:27) (unknown) (no (unknown) (unknown) have occurred. If (units (unknown) date) there are any unknown) questions, please contact the Medical Records (unknown) (no (unknown) (unknown) hydromorphone (units ( unknown) date) [HYDROMORPHONE] unknown) Allergy (Mild, Verified 11/24/22 11:27) (unknown) (no (unknown) (unknown) hydroxocobalamin (units (unknown) date) 1,000 mcg/mL unknown) intramuscular solution 500 mcg (0.5 mL) IM BID #30 (unknown) (no (unknown) (unknown) insulin (units (unkno wn) date) syringe-needle unknown) U-100 1 mL 30 gauge x 1/2' (BD Insulin Syringe Ultra (unknown) (no (unknown) (unknown) k2 with vit D PO (units (unknown) date) 12/09/21 [History unknown) Confirmed 11/24/22] (unknown) (no (unknown) (unknown) lithium [LITHIUM] (units (unknown) date) Allergy (Unknown, unknown) Verified 11/24/22 11:27) (unknown) (no (unknown) (unknown) loratadine 10 mg (units (unknown) date) tablet (Claritin) unknown) 10 mg PO DAILY PRN allergic symptoms #90 tabs (unknown) (no (unknown) (unknown) mL 08/04/22 [Rx (units (unknown) date) Confirmed 11/24/22] unknown) (unknown) (no (unknown) (unknown) may occur. (units (unk nown) date) Occasional unknown) wrong-word or 'sound-alike' substitutions may have (unknown) (no (unknown) (unknown) occurred due to (units (unknown) date) the inherent unknown) limitations of voice recognition software. Please (unknown) (no (unknown) (unknown) ondansetron HCl 4 (units (unknown) date) mg tablet (Zofran) unknown) 4 mg PO Q4HP PRN #20 tabs 11/25/17 [Rx (unknown) (no (unknown) (unknown) read the note (units ( unknown) date) carefully and unknown) recognize, using context, where these substitutions (unknown) (no (unknown) (unknown) software. 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 (unknown) (no (unknown) (unknown) tachycardia (units (un known) date) unknown) (unknown) (no (unknown) (unknown) tizanidine 4 mg (units (unknown) date) tablet 4 mg PO Q8H unknown) PRN muscle spasticity #20 tabs 02/05/22 [Rx (unknown) (no (unknown) (unknown) vitamin c 1000 mg (units (unknown) date) PO 12/09/21 unknown) [History Confirmed 11/24/22] Result panel 12 (unknown) (no (unknown) (unknown) (no value) (units (unk nown) date) unknown) (unknown) (no (unknown) (unknown) 0.3 mL IM Left (units (unknown) date) Deltoid [id number] unknown) 06/07/23 [address]-1 [employer] CONS.HLT (unknown) (no (unknown) (unknown) [id number] (units (unkn own) date) unknown) (unknown) (no (unknown) (unknown) 11/24/22 Single (units (unknown) date) Vaccine 07/14/22 unknown) (unknown) (no (unknown) (unknown) 11/24/22 (units (unkno wn) date) unknown) (unknown) (no (unknown) (unknown) 11/24/22] (units (unkn own) date) unknown) (unknown) (no (unknown) (unknown) 12/26/17 [History (units (unknown) date) Confirmed 11/24/22] unknown) (unknown) (no (unknown) (unknown) 05/18/22 [Rx (units (u nknown) date) Confirmed 11/24/22] unknown) (unknown) (no (unknown) (unknown) 11:33 (units (unkno wn) date) unknown) (unknown) (no (unknown) (unknown) Acute pain of left (units (unknown) date) shoulder unknown) (unknown) (no (unknown) (unknown) Administered by: (units (unknown) date) Lani Benavides CMA unknown) on 11/24/22 12:15 (unknown) (no (unknown) (unknown) Age/Sex: 67 / F (units (unknown) date) Date of Service: unknown) (unknown) (no (unknown) (unknown) Allergic reaction (units (unknown) date) to grass pollen unknown) (unknown) (no (unknown) (unknown) Allergic to cats (units (unknown) date) unknown) (unknown) (no (unknown) (unknown) Allergies (units (unkn own) date) unknown) (unknown) (no (unknown) (unknown) [place], [place] (units ( unknown) date) [id number] unknown) (unknown) (no (unknown) (unknown) Anesthesia (units (unk nown) date) unknown) (unknown) (no (unknown) (unknown) Angina pectoris (units (unknown) date) unknown) (unknown) (no (unknown) (unknown) Ankle pain, (units (un known) date) chronic (2014) unknown) (unknown) (no (unknown) (unknown) Ankle pain, (units (un known) date) chronic unknown) (unknown) (no (unknown) (unknown) Anxiety (units (unkno wn) date) unknown) (unknown) (no (unknown) (unknown) Assessment + Plan (units (unknown) date) unknown) (unknown) (no (unknown) (unknown) Attending Dr: Laura (units (unknown) date) Weeks D.O. unknown) (unknown) (no (unknown) (unknown) BP 140/84 (units (unkn own) date) unknown) (unknown) (no (unknown) (unknown) Bipolar disorder (units (unknown) date) unknown) (unknown) (no (unknown) (unknown) Blood Pressure (units (unknown) date) Location Lt unknown) brachial (unknown) (no (unknown) (unknown) Brain cancer (units (u nknown) date) unknown) (unknown) (no (unknown) (unknown) COVID PFIZER (units (u nknown) date) Bivalent Booster unknown) Today Z23 - Encounter for immunization (unknown) (no (unknown) (unknown) COVID-19 vac, bv (units (unknown) date) (Pfizer)(PF) 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 (unknown) (no (unknown) (unknown) Chronic left-sided (units (unknown) date) thoracic back pain unknown) (unknown) (no (unknown) (unknown) Comment PT (units (unk nown) date) declined weight unknown) today (unknown) (no (unknown) (unknown) 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 [id number] (-12/2016) (unknown) (no (unknown) (unknown) Compression (units (un known) date) fracture of body of unknown) thoracic vertebra () (unknown) (no (unknown) (unknown) Confirmed (units (unkn own) date) 11/24/22] unknown) (unknown) (no (unknown) (unknown) Cranial somatic (units (unknown) date) dysfunction unknown) (unknown) (no (unknown) (unknown) DAIRY Allergy (units ( unknown) date) (Intermediate, unknown) Uncoded 11/24/22 11:27) (unknown) (no (unknown) (unknown) : 1955 (units (unknown) date) Acct:[id number] unknown) (unknown) (no (unknown) (unknown) Depression (units (unk nown) date) (09/21/14) unknown) (unknown) (no (unknown) (unknown) Depression (units (unk nown) date) unknown) (unknown) (no (unknown) (unknown) Dept at (units (unkno wn) date) . unknown) (unknown) (no (unknown) (unknown) Disabled Parking (units (unknown) date) Permit #1 ea unknown) 04/08/22 [Rx Confirmed 11/24/22] (unknown) (no (unknown) (unknown) Documented By: (units (unknown) date) Laura Parikh D.O. unknown) 11/24/22 1136 (unknown) (no (unknown) (unknown) Dose Route Admin (units (unknown) date) Location Lot Number unknown) Expiration Date NDC (unknown) (no (unknown) (unknown) Draft (units (unkno wn) date) unknown) (unknown) (no (unknown) (unknown) Eligibility (units (un known) date) Eligibility Date unknown) Funding Source (unknown) (no (unknown) (unknown) Environmental (units ( unknown) date) allergies unknown) (unknown) (no (unknown) (unknown) Esophageal (units (unk nown) date) stricture unknown) (unknown) (no (unknown) (unknown) Esophagitis (units (un known) date) unknown) (unknown) (no (unknown) (unknown) Family History (units (unknown) date) (Updated 06/08/18 @ unknown) 12:37 by Rabia Jacob) (unknown) (no (unknown) (unknown) Family Practice (units (unknown) date) Office Visit unknown) (unknown) (no (unknown) (unknown) Fibromyalgia (units (u nknown) date) unknown) (unknown) (no (unknown) (unknown) [facility] (units (unknown) date[facility] unknown) (unknown) (no (unknown) (unknown) Fine) See Rx (units (u nknown) date) Instructions .Route unknown) .COMPLEX #200 ea 08/04/22 [Rx Confirmed (unknown) (no (unknown) (unknown) Foot pain (2011) (units (unknown) date) unknown) (unknown) (no (unknown) (unknown) Gastropathy (units (un known) date) unknown) (unknown) (no (unknown) (unknown) Grandmother (units (un known) date) Diabetes mellitus unknown) (unknown) (no (unknown) (unknown) Hayfever (units (unkno wn) date) unknown) (unknown) (no (unknown) (unknown) Heart disease (units ( unknown) date) unknown) (unknown) (no (unknown) (unknown) Height 5 ft 3.5 in (units (unknown) date) unknown) (unknown) (no (unknown) (unknown) Hemorrhoids (units (un known) date) unknown) (unknown) (no (unknown) (unknown) Hiatal hernia (units ( unknown) date) unknown) (unknown) (no (unknown) (unknown) High cholesterol (units (unknown) date) unknown) (unknown) (no (unknown) (unknown) History of (units (unk nown) date) diabetes mellitus unknown) (unknown) (no (unknown) (unknown) History of (units (unk nown) date) fundoplication unknown) (unknown) (no (unknown) (unknown) History of repair (units (unknown) date) of hiatal hernia unknown) (11/2011) (unknown) (no (unknown) (unknown) History of (units (unk nown) date) tonsillectomy unknown) (1972) (unknown) (no (unknown) (unknown) Hives (units (unkno wn) date) unknown) (unknown) (no (unknown) (unknown) Hypertension (units (u nknown) date) unknown) (unknown) (no (unknown) (unknown) Hypothyroidism (units (unknown) date) unknown) (unknown) (no (unknown) (unknown) IBS (irritable (units (unknown) date) bowel syndrome) unknown) (unknown) (no (unknown) (unknown) 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) unknown) (unknown) (no (unknown) (unknown) Immunizations (units ( unknown) date) unknown) (unknown) (no (unknown) (unknown) Intake (units (unkno wn) date) unknown) (unknown) (no (unknown) (unknown) Last Menstural (units (unknown) date) Cycle + Details unknown) (unknown) (no (unknown) (unknown) Liver cancer (units (u nknown) date) unknown) (unknown) (no (unknown) (unknown) Loc: [facility] (units (unkno wn) date) unknown) (unknown) (no (unknown) (unknown) Lumbar facet (units (u nknown) date) arthropathy (2014) unknown) (unknown) (no (unknown) (unknown) Lumbar region (units ( unknown) date) somatic dysfunction unknown) (unknown) (no (unknown) (unknown) Lung cancer (units (un known) date) unknown) (unknown) (no (unknown) (unknown) 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) (unknown) (no (unknown) (unknown) Medical History (units (unknown) date) (Updated 11/17/22 @ unknown) 16:55 by Laura Parikh DO) (unknown) (no (unknown) (unknown) Medications (units (un known) date) unknown) (unknown) (no (unknown) (unknown) Mother (units (unknown) date) Diabetes mellitus unknown) (unknown) (no (unknown) (unknown) Not [facility] Eligible (units (unknown) date) 11/24/22 Private unknown) Funds (unknown) (no (unknown) (unknown) Obesity (units (unkno wn) date) unknown) (unknown) (no (unknown) (unknown) Orders (units (unkno wn) date) unknown) (unknown) (no (unknown) (unknown) Orders: (units (unkno wn) date) unknown) (unknown) (no (unknown) (unknown) Osteoarthritis (units (unknown) date) (2011) unknown) (unknown) (no (unknown) (unknown) 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 unknown) (unknown) (no (unknown) (unknown) Osteoporosis (units (u nknown) date) unknown) (unknown) (no (unknown) (unknown) Other Menstrual (units (unknown) date) Period: unknown) Postmenopausal (unknown) (no (unknown) (unknown) Oxygen Delivery (units (unknown) date) Method room air unknown) (unknown) (no (unknown) (unknown) PFSH (units (unkno wn) date) unknown) (unknown) (no (unknown) (unknown) PTSD (units (unkno wn) date) (post-traumatic unknown) stress disorder) (unknown) (no (unknown) (unknown) Patient: (units (unkno wn) date) Whitley Oakes unknown) MR#: M (unknown) (no (unknown) (unknown) Pelvic somatic (units (unknown) date) dysfunction unknown) (unknown) (no (unknown) (unknown) Performing (units (unk nown) date) Provider: Laura unknown) Weeks, DO (unknown) (no (unknown) (unknown) Pernicious anemia (units (unknown) date) unknown) (unknown) (no (unknown) (unknown) Personality (units (un known) date) disorder unknown) (unknown) (no (unknown) (unknown) Position Sitting (units (unknown) date) unknown) (unknown) (no (unknown) (unknown) Pulse 112 H (units (un known) date) unknown) (unknown) (no (unknown) (unknown) Pulse Oximetry (%) (units (unknown) date) 97 unknown) (unknown) (no (unknown) (unknown) Pulse Source (units (u nknown) date) Monitor unknown) (unknown) (no (unknown) (unknown) [id number] #1 mL (units (unknown) date) 08/04/22 [Rx unknown) Confirmed 11/24/22] (unknown) (no (unknown) (unknown) RLS (restless legs (units (unknown) date) syndrome) unknown) (unknown) (no (unknown) (unknown) Reason For Visit (units (unknown) date) unknown) (unknown) (no (unknown) (unknown) Right shoulder (units (unknown) date) pain unknown) (unknown) (no (unknown) (unknown) SWELLING (units (unkno wn) date) unknown) (unknown) (no (unknown) (unknown) Sacral region (units ( unknown) date) somatic dysfunction unknown) (unknown) (no (unknown) (unknown) Sacroiliitis (units (u nknown) date) (2012) unknown) (unknown) (no (unknown) (unknown) Seborrheic (units (unk nown) date) keratosis unknown) (unknown) (no (unknown) (unknown) Segmental and (units ( unknown) date) somatic dysfunction unknown) of abdomen and other regions (unknown) (no (unknown) (unknown) Signed By: (units (unk nown) date) unknown) (unknown) (no (unknown) (unknown) Sister (units (unknown) date) Diabetes mellitus unknown) (unknown) (no (unknown) (unknown) Smoking Status: (units (unknown) date) Former smoker unknown) (unknown) (no (unknown) (unknown) Status post (units (un known) date) colonoscopy unknown) (09/2019) (unknown) (no (unknown) (unknown) Status post (units (un known) date) endoscopy (12/2019) unknown) (unknown) (no (unknown) (unknown) Status post (units (un known) date) reduction unknown) mammoplasty (07/2010) (unknown) (no (unknown) (unknown) Stroke (units (unkno wn) date) unknown) (unknown) (no (unknown) (unknown) Substance abuse (units (unknown) date) unknown) (unknown) (no (unknown) (unknown) Surgical History (units (unknown) date) (Updated 01/18/20 @ unknown) 15:38 by Summer Price DO) (unknown) (no (unknown) (unknown) This note may have (units (unknown) date) been all or unknown) partially generated using voice recognition (unknown) (no (unknown) (unknown) Thoracic region (units (unknown) date) somatic dysfunction unknown) (unknown) (no (unknown) (unknown) Tinnitus (units (unkno wn) date) unknown) (unknown) (no (unknown) (unknown) Tobacco + (units (unkn own) date) Substance Use unknown) (unknown) (no (unknown) (unknown) Tobacco Status (units (unknown) date) unknown) (unknown) (no (unknown) (unknown) Tubular adenoma of (units (unknown) date) colon (12/2014) unknown) (unknown) (no (unknown) (unknown) VIS Given Date VIS (units (unknown) date) Provided VIS unknown) Publication Date (unknown) (no (unknown) (unknown) Visit Reasons: OMT (units (unknown) date) #1/covid booster unknown) (unknown) (no (unknown) (unknown) Vitals (units (unkno wn) date) unknown) (unknown) (no (unknown) (unknown) [Rx Confirmed (units ( unknown) date) 11/24/22] unknown) (unknown) (no (unknown) (unknown) acetaminophen 300 (units (unknown) date) mg-codeine 30 mg unknown) tablet 1 tab PO Q6H PRN pain #5 tabs 11/17/22 (unknown) (no (unknown) (unknown) albuterol (units (unkn own) date) [ALBUTEROL] Allergy unknown) (Unknown, Verified 11/24/22 11:27) (unknown) (no (unknown) (unknown) bladder pain (units (u nknown) date) unknown) (unknown) (no (unknown) (unknown) cholecalciferol (units (unknown) date) (vitamin D3) 250 unknown) mcg (10,000 unit) tablet 10,000 tab PO QDAY ##0 (unknown) (no (unknown) (unknown) clonazepam 1 mg (units (unknown) date) tablet 0.5 mg PO unknown) BID PRN anxiety #10 tabs 02/19/22 [Rx Confirmed (unknown) (no (unknown) (unknown) congestion and (units (unknown) date) stomach problems unknown) (unknown) (no (unknown) (unknown) cyanocobalamin (units (unknown) date) (vitamin B-12) unknown) 1,000 mcg/mL injection solution 1,000 mcg IM (unknown) (no (unknown) (unknown) dexamethasone (units ( unknown) date) Adverse Reaction unknown) (Severe, Verified 11/24/22 11:27) (unknown) (no (unknown) (unknown) folic acid 5 mg PO (units (unknown) date) 04/08/22 [History unknown) Confirmed 11/24/22] (unknown) (no (unknown) (unknown) gentle iron PO (units (unknown) date) 12/09/21 [History unknown) Confirmed 11/24/22] (unknown) (no (unknown) (unknown) gluten [GLUTEN] (units (unknown) date) Allergy (Unknown, unknown) Verified 11/24/22 11:27) (unknown) (no (unknown) (unknown) grass pollen (units (u nknown) date) Allergy (Severe, unknown) Verified 11/24/22 11:27) (unknown) (no (unknown) (unknown) have occurred. If (units (unknown) date) there are any unknown) questions, please contact the Medical Records (unknown) (no (unknown) (unknown) hydromorphone (units ( unknown) date) [HYDROMORPHONE] unknown) Allergy (Mild, Verified 11/24/22 11:27) (unknown) (no (unknown) (unknown) hydroxocobalamin (units (unknown) date) 1,000 mcg/mL unknown) intramuscular solution 500 mcg (0.5 mL) IM BID #30 (unknown) (no (unknown) (unknown) insulin (units (unkno wn) date) syringe-needle unknown) U-100 1 mL 30 gauge x 1/2' (BD Insulin Syringe Ultra (unknown) (no (unknown) (unknown) k2 with vit D PO (units (unknown) date) 12/09/21 [History unknown) Confirmed 11/24/22] (unknown) (no (unknown) (unknown) lithium [LITHIUM] (units (unknown) date) Allergy (Unknown, unknown) Verified 11/24/22 11:27) (unknown) (no (unknown) (unknown) loratadine 10 mg (units (unknown) date) tablet (Claritin) unknown) 10 mg PO DAILY PRN allergic symptoms #90 tabs (unknown) (no (unknown) (unknown) mL 08/04/22 [Rx (units (unknown) date) Confirmed 11/24/22] unknown) (unknown) (no (unknown) (unknown) may occur. (units (unk nown) date) Occasional unknown) wrong-word or 'sound-alike' substitutions may have (unknown) (no (unknown) (unknown) occurred due to (units (unknown) date) the inherent unknown) limitations of voice recognition software. Please (unknown) (no (unknown) (unknown) ondansetron HCl 4 (units (unknown) date) mg tablet (Zofran) unknown) 4 mg PO Q4HP PRN #20 tabs 11/25/17 [Rx (unknown) (no (unknown) (unknown) read the note (units ( unknown) date) carefully and unknown) recognize, using context, where these substitutions (unknown) (no (unknown) (unknown) software. 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 (unknown) (no (unknown) (unknown) tachycardia (units (un known) date) unknown) (unknown) (no (unknown) (unknown) tizanidine 4 mg (units (unknown) date) tablet 4 mg PO Q8H unknown) PRN muscle spasticity #20 tabs 02/05/22 [Rx (unknown) (no (unknown) (unknown) vitamin c 1000 mg (units (unknown) date) PO 12/09/21 unknown) [History Confirmed 11/24/22] Result panel 13 (unknown) (no (unknown) (unknown) (no value) (units (unk nown) date) unknown) (unknown) (no (unknown) (unknown) 0.3 mL IM Left (units (unknown) date) Deltoid [id number] unknown) 06/07/23 [id number] [employer] CONS.HLT (unknown) (no (unknown) (unknown) [id number] (units (unkn own) date) unknown) (unknown) (no (unknown) (unknown) 11/24/22 Single (units (unknown) date) Vaccine 07/14/22 unknown) (unknown) (no (unknown) (unknown) 11/24/22 (units (unkno wn) date) unknown) (unknown) (no (unknown) (unknown) 11/24/22] (units (unkn own) date) unknown) (unknown) (no (unknown) (unknown) 12/26/17 [History (units (unknown) date) Confirmed 11/24/22] unknown) (unknown) (no (unknown) (unknown) 03/25/22 [Rx (units (u nknown) date) Confirmed 11/24/22] unknown) (unknown) (no (unknown) (unknown) 11:33 (units (unkno wn) date) unknown) (unknown) (no (unknown) (unknown) Acute pain of left (units (unknown) date) shoulder unknown) (unknown) (no (unknown) (unknown) Administered by: (units (unknown) date) Lani Benavides CMA unknown) on 11/24/22 12:15 (unknown) (no (unknown) (unknown) Age/Sex: 67 / F (units (unknown) date) Date of Service: unknown) (unknown) (no (unknown) (unknown) Allergic reaction (units (unknown) date) to grass pollen unknown) (unknown) (no (unknown) (unknown) Allergic to cats (units (unknown) date) unknown) (unknown) (no (unknown) (unknown) Allergies (units (unkn own) date) unknown) (unknown) (no (unknown) (unknown) [place], [place] (units ( unknown) date) [id number] unknown) (unknown) (no (unknown) (unknown) Anesthesia (units (unk nown) date) unknown) (unknown) (no (unknown) (unknown) Angina pectoris (units (unknown) date) unknown) (unknown) (no (unknown) (unknown) Ankle pain, (units (un known) date) chronic (2014) unknown) (unknown) (no (unknown) (unknown) Ankle pain, (units (un known) date) chronic unknown) (unknown) (no (unknown) (unknown) Anxiety (units (unkno wn) date) unknown) (unknown) (no (unknown) (unknown) Assessment + Plan (units (unknown) date) unknown) (unknown) (no (unknown) (unknown) Attending Dr: Laura (units (unknown) date) Weeks D.O. unknown) (unknown) (no (unknown) (unknown) BP 140/84 (units (unkn own) date) unknown) (unknown) (no (unknown) (unknown) Bipolar disorder (units (unknown) date) unknown) (unknown) (no (unknown) (unknown) Blood Pressure (units (unknown) date) Location Lt unknown) brachial (unknown) (no (unknown) (unknown) Brain cancer (units (u nknown) date) unknown) (unknown) (no (unknown) (unknown) COVID PFIZER (units (u nknown) date) Bivalent Booster unknown) Today Z23 - Encounter for immunization (unknown) (no (unknown) (unknown) COVID-19 vac, bv (units (unknown) date) (Pfizer)(PF) unknown) (unknown) (no (unknown) (unknown) Cancelled (units (unkn own) date) 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 (unknown) (no (unknown) (unknown) Chronic left-sided (units (unknown) date) thoracic back pain unknown) (unknown) (no (unknown) (unknown) Comment PT (units (unk nown) date) declined weight unknown) today (unknown) (no (unknown) (unknown) 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 () (unknown) (no (unknown) (unknown) Compression (units (un known) date) fracture of body of unknown) thoracic vertebra () (unknown) (no (unknown) (unknown) Confirmed (units (unkn own) date) 11/24/22] unknown) (unknown) (no (unknown) (unknown) Cranial somatic (units (unknown) date) dysfunction unknown) (unknown) (no (unknown) (unknown) DAIRY Allergy (units ( unknown) date) (Intermediate, unknown) Uncoded 11/24/22 11:27) (unknown) (no (unknown) (unknown) : 1955 (units (unknown) date) Acct:[id number] unknown) (unknown) (no (unknown) (unknown) Depression (units (unk nown) date) (09/21/14) unknown) (unknown) (no (unknown) (unknown) Depression (units (unk nown) date) unknown) (unknown) (no (unknown) (unknown) Dept at (units (unkno wn) date) . unknown) (unknown) (no (unknown) (unknown) Disabled Parking (units (unknown) date) Permit #1 ea unknown) 04/08/22 [Rx Confirmed 11/24/22] (unknown) (no (unknown) (unknown) Documented By: (units (unknown) date) Laura Parikh Te[place] unknown) 11/24/22 1136 (unknown) (no (unknown) (unknown) Dose Route Admin (units (unknown) date) Location Lot Number unknown) Expiration Date NDC (unknown) (no (unknown) (unknown) Eligibility (units (un known) date) Eligibility Date unknown) Funding Source (unknown) (no (unknown) (unknown) Environmental (units ( unknown) date) allergies unknown) (unknown) (no (unknown) (unknown) Esophageal (units (unk nown) date) stricture unknown) (unknown) (no (unknown) (unknown) Esophagitis (units (un known) date) unknown) (unknown) (no (unknown) (unknown) Family History (units (unknown) date) (Updated 06/08/18 @ unknown) 12:37 by Rabia Jacob) (unknown) (no (unknown) (unknown) Family Practice (units (unknown) date) Office Visit unknown) (unknown) (no (unknown) (unknown) Fibromyalgia (units (u nknown) date) unknown) (unknown) (no (unknown) (unknown) [facility]) (unknown) (no (unknown) (unknown) Fine) See Rx (units (u nknown) date) Instructions .Route unknown) .COMPLEX #200 ea 08/04/22 [Rx Confirmed (unknown) (no (unknown) (unknown) Foot pain (2011) (units (unknown) date) unknown) (unknown) (no (unknown) (unknown) Gastropathy (units (un known) date) unknown) (unknown) (no (unknown) (unknown) Grandmother (units (un known) date) Diabetes mellitus unknown) (unknown) (no (unknown) (unknown) Hayfever (units (unkno wn) date) unknown) (unknown) (no (unknown) (unknown) Heart disease (units ( unknown) date) unknown) (unknown) (no (unknown) (unknown) Height 5 ft 3.5 in (units (unknown) date) unknown) (unknown) (no (unknown) (unknown) Hemorrhoids (units (un known) date) unknown) (unknown) (no (unknown) (unknown) Hiatal hernia (units ( unknown) date) unknown) (unknown) (no (unknown) (unknown) High cholesterol (units (unknown) date) unknown) (unknown) (no (unknown) (unknown) History of (units (unk nown) date) diabetes mellitus unknown) (unknown) (no (unknown) (unknown) History of (units (unk nown) date) fundoplication unknown) (unknown) (no (unknown) (unknown) History of repair (units (unknown) date) of hiatal hernia unknown) (11/2011) (unknown) (no (unknown) (unknown) History of (units (unk nown) date) tonsillectomy unknown) (1972) (unknown) (no (unknown) (unknown) Hives (units (unkno wn) date) unknown) (unknown) (no (unknown) (unknown) Hypertension (units (u nknown) date) unknown) (unknown) (no (unknown) (unknown) Hypothyroidism (units (unknown) date) unknown) (unknown) (no (unknown) (unknown) IBS (irritable (units (unknown) date) bowel syndrome) unknown) (unknown) (no (unknown) (unknown) 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) unknown) (unknown) (no (unknown) (unknown) Immunizations (units ( unknown) date) unknown) (unknown) (no (unknown) (unknown) Intake (units (unkno wn) date) unknown) (unknown) (no (unknown) (unknown) Last Menstural (units (unknown) date) Cycle + Details unknown) (unknown) (no (unknown) (unknown) Liver cancer (units (u nknown) date) unknown) (unknown) (no (unknown) (unknown) Loc: [facility] (units (unkno wn) date) unknown) (unknown) (no (unknown) (unknown) Lumbar facet (units (u nknown) date) arthropathy (2014) unknown) (unknown) (no (unknown) (unknown) Lumbar region (units ( unknown) date) somatic dysfunction unknown) (unknown) (no (unknown) (unknown) Lung cancer (units (un known) date) unknown) (unknown) (no (unknown) (unknown) 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) (unknown) (no (unknown) (unknown) Medical History (units (unknown) date) (Updated 11/17/22 @ unknown) 16:55 by Laura Parikh DO) (unknown) (no (unknown) (unknown) Medications (units (un known) date) unknown) (unknown) (no (unknown) (unknown) Mother (units (unknown) date) Diabetes mellitus unknown) (unknown) (no (unknown) (unknown) Not [facility] Eligible (units (unknown) date) 11/24/22 Private unknown) Funds (unknown) (no (unknown) (unknown) Obesity (units (unkno wn) date) unknown) (unknown) (no (unknown) (unknown) Orders (units (unkno wn) date) unknown) (unknown) (no (unknown) (unknown) Orders: (units (unkno wn) date) unknown) (unknown) (no (unknown) (unknown) Osteoarthritis (units (unknown) date) (2012) unknown) (unknown) (no (unknown) (unknown) 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 unknown) (unknown) (no (unknown) (unknown) Osteoporosis (units (u nknown) date) unknown) (unknown) (no (unknown) (unknown) Other Menstrual (units (unknown) date) Period: unknown) Postmenopausal (unknown) (no (unknown) (unknown) Oxygen Delivery (units (unknown) date) Method room air unknown) (unknown) (no (unknown) (unknown) PFSH (units (unkno wn) date) unknown) (unknown) (no (unknown) (unknown) PTSD (units (unkno wn) date) (post-traumatic unknown) stress disorder) (unknown) (no (unknown) (unknown) Patient: (units (unkno wn) date) Whitley Oakes unknown) MR#: M (unknown) (no (unknown) (unknown) Pelvic somatic (units (unknown) date) dysfunction unknown) (unknown) (no (unknown) (unknown) Performing (units (unk nown) date) Provider: Laura unknown) DO Jl (unknown) (no (unknown) (unknown) Pernicious anemia (units (unknown) date) unknown) (unknown) (no (unknown) (unknown) Personality (units (un known) date) disorder unknown) (unknown) (no (unknown) (unknown) Position Sitting (units (unknown) date) unknown) (unknown) (no (unknown) (unknown) Pulse 112 H (units (un known) date) unknown) (unknown) (no (unknown) (unknown) Pulse Oximetry (%) (units (unknown) date) 97 unknown) (unknown) (no (unknown) (unknown) Pulse Source (units (u nknown) date) Monitor unknown) (unknown) (no (unknown) (unknown) [id number] #1 mL (units (unknown) date) 08/04/22 [Rx unknown) Confirmed 11/24/22] (unknown) (no (unknown) (unknown) RLS (restless legs (units (unknown) date) syndrome) unknown) (unknown) (no (unknown) (unknown) Reason For Visit (units (unknown) date) unknown) (unknown) (no (unknown) (unknown) Right shoulder (units (unknown) date) pain unknown) (unknown) (no (unknown) (unknown) SWELLING (units (unkno wn) date) unknown) (unknown) (no (unknown) (unknown) Sacral region (units ( unknown) date) somatic dysfunction unknown) (unknown) (no (unknown) (unknown) Sacroiliitis (units (u nknown) date) (2011) unknown) (unknown) (no (unknown) (unknown) Seborrheic (units (unk nown) date) keratosis unknown) (unknown) (no (unknown) (unknown) Segmental and (units ( unknown) date) somatic dysfunction unknown) of abdomen and other regions (unknown) (no (unknown) (unknown) Signed By: (units (unk nown) date) unknown) (unknown) (no (unknown) (unknown) Sister (units (unknown) date) Diabetes mellitus unknown) (unknown) (no (unknown) (unknown) Smoking Status: (units (unknown) date) Former smoker unknown) (unknown) (no (unknown) (unknown) Status post (units (un known) date) colonoscopy unknown) (09/2019) (unknown) (no (unknown) (unknown) Status post (units (un known) date) endoscopy (12/2019) unknown) (unknown) (no (unknown) (unknown) Status post (units (un known) date) reduction unknown) mammoplasty (07/2010) (unknown) (no (unknown) (unknown) Stroke (units (unkno wn) date) unknown) (unknown) (no (unknown) (unknown) Substance abuse (units (unknown) date) unknown) (unknown) (no (unknown) (unknown) Surgical History (units (unknown) date) (Updated 01/18/20 @ unknown) 15:38 by Summer Price DO) (unknown) (no (unknown) (unknown) This note may have (units (unknown) date) been all or unknown) partially generated using voice recognition (unknown) (no (unknown) (unknown) Thoracic region (units (unknown) date) somatic dysfunction unknown) (unknown) (no (unknown) (unknown) Tinnitus (units (unkno wn) date) unknown) (unknown) (no (unknown) (unknown) Tobacco + (units (unkn own) date) Substance Use unknown) (unknown) (no (unknown) (unknown) Tobacco Status (units (unknown) date) unknown) (unknown) (no (unknown) (unknown) Tubular adenoma of (units (unknown) date) colon (12/2014) unknown) (unknown) (no (unknown) (unknown) VIS Given Date VIS (units (unknown) date) Provided VIS unknown) Publication Date (unknown) (no (unknown) (unknown) Visit Reasons: OMT (units (unknown) date) #1/covid booster unknown) (unknown) (no (unknown) (unknown) Vitals (units (unkno wn) date) unknown) (unknown) (no (unknown) (unknown) [Rx Confirmed (units ( unknown) date) 11/24/22] unknown) (unknown) (no (unknown) (unknown) acetaminophen 300 (units (unknown) date) mg-codeine 30 mg unknown) tablet 1 tab PO Q6H PRN pain #5 tabs 11/17/22 (unknown) (no (unknown) (unknown) albuterol (units (unkn own) date) [ALBUTEROL] Allergy unknown) (Unknown, Verified 11/24/22 11:27) (unknown) (no (unknown) (unknown) bladder pain (units (u nknown) date) unknown) (unknown) (no (unknown) (unknown) cholecalciferol (units (unknown) date) (vitamin D3) 250 unknown) mcg (10,000 unit) tablet 10,000 tab PO QDAY ##0 (unknown) (no (unknown) (unknown) clonazepam 1 mg (units (unknown) date) tablet 0.5 mg PO unknown) BID PRN anxiety #10 tabs 02/19/22 [Rx Confirmed (unknown) (no (unknown) (unknown) congestion and (units (unknown) date) stomach problems unknown) (unknown) (no (unknown) (unknown) cyanocobalamin (units (unknown) date) (vitamin B-12) unknown) 1,000 mcg/mL injection solution 1,000 mcg IM (unknown) (no (unknown) (unknown) dexamethasone (units ( unknown) date) Adverse Reaction unknown) (Severe, Verified 11/24/22 11:27) (unknown) (no (unknown) (unknown) folic acid 5 mg PO (units (unknown) date) 04/08/22 [History unknown) Confirmed 11/24/22] (unknown) (no (unknown) (unknown) gentle iron PO (units (unknown) date) 12/09/21 [History unknown) Confirmed 11/24/22] (unknown) (no (unknown) (unknown) gluten [GLUTEN] (units (unknown) date) Allergy (Unknown, unknown) Verified 11/24/22 11:27) (unknown) (no (unknown) (unknown) grass pollen (units (u nknown) date) Allergy (Severe, unknown) Verified 11/24/22 11:27) (unknown) (no (unknown) (unknown) have occurred. If (units (unknown) date) there are any unknown) questions, please contact the Medical Records (unknown) (no (unknown) (unknown) hydromorphone (units ( unknown) date) [HYDROMORPHONE] unknown) Allergy (Mild, Verified 11/24/22 11:27) (unknown) (no (unknown) (unknown) hydroxocobalamin (units (unknown) date) 1,000 mcg/mL unknown) intramuscular solution 500 mcg (0.5 mL) IM BID #30 (unknown) (no (unknown) (unknown) insulin (units (unkno wn) date) syringe-needle unknown) U-100 1 mL 30 gauge x 1/2' (BD Insulin Syringe Ultra (unknown) (no (unknown) (unknown) k2 with vit D PO (units (unknown) date) 12/09/21 [History unknown) Confirmed 11/24/22] (unknown) (no (unknown) (unknown) lithium [LITHIUM] (units (unknown) date) Allergy (Unknown, unknown) Verified 11/24/22 11:27) (unknown) (no (unknown) (unknown) loratadine 10 mg (units (unknown) date) tablet (Claritin) unknown) 10 mg PO DAILY PRN allergic symptoms #90 tabs (unknown) (no (unknown) (unknown) mL 08/04/22 [Rx (units (unknown) date) Confirmed 11/24/22] unknown) (unknown) (no (unknown) (unknown) may occur. (units (unk nown) date) Occasional unknown) wrong-word or 'sound-alike' substitutions may have (unknown) (no (unknown) (unknown) occurred due to (units (unknown) date) the inherent unknown) limitations of voice recognition software. Please (unknown) (no (unknown) (unknown) ondansetron HCl 4 (units (unknown) date) mg tablet (Zofran) unknown) 4 mg PO Q4HP PRN #20 tabs 11/25/17 [Rx (unknown) (no (unknown) (unknown) read the note (units ( unknown) date) carefully and unknown) recognize, using context, where these substitutions (unknown) (no (unknown) (unknown) software. 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 (unknown) (no (unknown) (unknown) tachycardia (units (un known) date) unknown) (unknown) (no (unknown) (unknown) tizanidine 4 mg (units (unknown) date) tablet 4 mg PO Q8H unknown) PRN muscle spasticity #20 tabs 02/05/22 [Rx (unknown) (no (unknown) (unknown) vitamin c 1000 mg (units (unknown) date) PO 12/09/21 unknown) [History Confirmed 11/24/22] Result panel 14 (unknown) (no (unknown) (unknown) (no value) (units (unk nown) date) unknown) (unknown) (no (unknown) (unknown) 0.3 mL IM Left (units (unknown) date) Deltoid [id number] unknown) 06/07/23 [id number] PFIZER CONS.HLT (unknown) (no (unknown) (unknown) [id number] (units (unkn own) date) unknown) (unknown) (no (unknown) (unknown) 11/24/22 Single (units (unknown) date) Vaccine 07/14/22 unknown) (unknown) (no (unknown) (unknown) 11/24/22 (units (unkno wn) date) unknown) (unknown) (no (unknown) (unknown) 11/24/22] (units (unkn own) date) unknown) (unknown) (no (unknown) (unknown) 12/26/17 [History (units (unknown) date) Confirmed 11/24/22] unknown) (unknown) (no (unknown) (unknown) 03/25/22 [Rx (units (u nknown) date) Confirmed 11/24/22] unknown) (unknown) (no (unknown) (unknown) 11:33 (units (unkno wn) date) unknown) (unknown) (no (unknown) (unknown) Acute pain of left (units (unknown) date) shoulder unknown) (unknown) (no (unknown) (unknown) Administered by: (units (unknown) date) Lani Benavides CMA unknown) on 11/24/22 12:15 (unknown) (no (unknown) (unknown) Age/Sex: 67 / F (units (unknown) date) Date of Service: unknown) (unknown) (no (unknown) (unknown) Allergic reaction (units (unknown) date) to grass pollen unknown) (unknown) (no (unknown) (unknown) Allergic to cats (units (unknown) date) unknown) (unknown) (no (unknown) (unknown) Allergies (units (unkn own) date) unknown) (unknown) (no (unknown) (unknown) [place], [place] (units ( unknown) date) [id number] unknown) (unknown) (no (unknown) (unknown) Anesthesia (units (unk nown) date) unknown) (unknown) (no (unknown) (unknown) Angina pectoris (units (unknown) date) unknown) (unknown) (no (unknown) (unknown) Ankle pain, (units (un known) date) chronic (2014) unknown) (unknown) (no (unknown) (unknown) Ankle pain, (units (un known) date) chronic unknown) (unknown) (no (unknown) (unknown) Anxiety (units (unkno wn) date) unknown) (unknown) (no (unknown) (unknown) Assessment + Plan (units (unknown) date) unknown) (unknown) (no (unknown) (unknown) Attending Dr: Laura (units (unknown) date) Weeks D.O. unknown) (unknown) (no (unknown) (unknown) BP 140/84 (units (unkn own) date) unknown) (unknown) (no (unknown) (unknown) Bipolar disorder (units (unknown) date) unknown) (unknown) (no (unknown) (unknown) Blood Pressure (units (unknown) date) Location Lt unknown) brachial (unknown) (no (unknown) (unknown) Brain cancer (units (u nknown) date) unknown) (unknown) (no (unknown) (unknown) COVID Booster -- (units (unknown) date) left arm preferred. unknown) (unknown) (no (unknown) (unknown) COVID PFIZER (units (u nknown) date) Bivalent Booster unknown) Today Z23 - Encounter for immunization (unknown) (no (unknown) (unknown) COVID-19 vac, bv (units (unknown) date) (Pfizer)(PF) 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 (unknown) (no (unknown) (unknown) Chronic left-sided (units (unknown) date) thoracic back pain unknown) (unknown) (no (unknown) (unknown) Comment PT (units (unk nown) date) declined weight unknown) today (unknown) (no (unknown) (unknown) 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 (-12/2016) (unknown) (no (unknown) (unknown) Compression (units (un known) date) fracture of body of unknown) thoracic vertebra (-04/2021) (unknown) (no (unknown) (unknown) Confirmed (units (unkn own) date) 11/24/22] unknown) (unknown) (no (unknown) (unknown) Cranial somatic (units (unknown) date) dysfunction unknown) (unknown) (no (unknown) (unknown) DAIRY Allergy (units ( unknown) date) (Intermediate, unknown) Uncoded 11/24/22 11:27) (unknown) (no (unknown) (unknown) : 1955 (units (unknown) date) Acct:[id number] unknown) (unknown) (no (unknown) (unknown) Depression (units (unk nown) date) (09/21/14) unknown) (unknown) (no (unknown) (unknown) Depression (units (unk nown) date) unknown) (unknown) (no (unknown) (unknown) Dept at (units (unkno wn) date) . unknown) (unknown) (no (unknown) (unknown) Disabled Parking (units (unknown) date) Permit #1 ea unknown) 04/08/22 [Rx Confirmed 11/24/22] (unknown) (no (unknown) (unknown) Documented By: (units (unknown) date) Laura Parikh D.O. unknown) 11/24/22 1123 (unknown) (no (unknown) (unknown) Dose Route Admin (units (unknown) date) Location Lot Number unknown) Expiration Date NDC (unknown) (no (unknown) (unknown) Draft (units (unkno wn) date) unknown) (unknown) (no (unknown) (unknown) Eligibility (units (un known) date) Eligibility Date unknown) Funding Source (unknown) (no (unknown) (unknown) Environmental (units ( unknown) date) allergies unknown) (unknown) (no (unknown) (unknown) Esophageal (units (unk nown) date) stricture unknown) (unknown) (no (unknown) (unknown) Esophagitis (units (un known) date) unknown) (unknown) (no (unknown) (unknown) Family History (units (unknown) date) (Updated 06/08/18 @ unknown) 12:37 by Rabia Jacob) (unknown) (no (unknown) (unknown) Family Practice (units (unknown) date) Office Visit unknown) (unknown) (no (unknown) (unknown) Fibromyalgia (units (u nknown) date) unknown) (unknown) (no (unknown) (unknown) [facility] ([facility] unknown) (unknown) (no (unknown) (unknown) Fine) See Rx (units (u nknown) date) Instructions .Route unknown) .COMPLEX #200 ea 08/04/22 [Rx Confirmed (unknown) (no (unknown) (unknown) Foot pain (2011) (units (unknown) date) unknown) (unknown) (no (unknown) (unknown) Gastropathy (units (un known) date) unknown) (unknown) (no (unknown) (unknown) Grandmother (units (un known) date) Diabetes mellitus unknown) (unknown) (no (unknown) (unknown) Hayfever (units (unkno wn) date) unknown) (unknown) (no (unknown) (unknown) Heart disease (units ( unknown) date) unknown) (unknown) (no (unknown) (unknown) Height 5 ft 3.5 in (units (unknown) date) unknown) (unknown) (no (unknown) (unknown) Hemorrhoids (units (un known) date) unknown) (unknown) (no (unknown) (unknown) Hiatal hernia (units ( unknown) date) unknown) (unknown) (no (unknown) (unknown) High cholesterol (units (unknown) date) unknown) (unknown) (no (unknown) (unknown) History of (units (unk nown) date) diabetes mellitus unknown) (unknown) (no (unknown) (unknown) History of (units (unk nown) date) fundoplication unknown) (unknown) (no (unknown) (unknown) History of repair (units (unknown) date) of hiatal hernia unknown) (11/2011) (unknown) (no (unknown) (unknown) History of (units (unk nown) date) tonsillectomy unknown) (1972) (unknown) (no (unknown) (unknown) Hives (units (unkno wn) date) unknown) (unknown) (no (unknown) (unknown) Hypertension (units (u nknown) date) unknown) (unknown) (no (unknown) (unknown) Hypothyroidism (units (unknown) date) unknown) (unknown) (no (unknown) (unknown) IBS (irritable (units (unknown) date) bowel syndrome) unknown) (unknown) (no (unknown) (unknown) 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) unknown) (unknown) (no (unknown) (unknown) Immunizations (units ( unknown) date) unknown) (unknown) (no (unknown) (unknown) Intake Note: (units (u nknown) date) unknown) (unknown) (no (unknown) (unknown) Intake performed (units (unknown) date) by: Yara Schmitz unknown) (unknown) (no (unknown) (unknown) Intake (units (unkno wn) date) unknown) (unknown) (no (unknown) (unknown) Intake- Clincial (units (unknown) date) Staff unknown) (unknown) (no (unknown) (unknown) Last Menstural (units (unknown) date) Cycle + Details unknown) (unknown) (no (unknown) (unknown) Liver cancer (units (u nknown) date) unknown) (unknown) (no (unknown) (unknown) Loc: [facility] (units (unkno wn) date) unknown) (unknown) (no (unknown) (unknown) Lumbar facet (units (u nknown) date) arthropathy (2014) unknown) (unknown) (no (unknown) (unknown) Lumbar region (units ( unknown) date) somatic dysfunction unknown) (unknown) (no (unknown) (unknown) Lung cancer (units (un known) date) unknown) (unknown) (no (unknown) (unknown) 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 (units (unkno wn) date) unknown) (unknown) (no (unknown) (unknown) Obesity (units (unkno wn) date) unknown) (unknown) (no (unknown) (unknown) Orders (units (unkno wn) date) unknown) (unknown) (no (unknown) (unknown) Orders: (units (unkno wn) date) unknown) (unknown) (no (unknown) (unknown) Osteoarthritis (units (unknown) date) (2012) unknown) (unknown) (no (unknown) (unknown) 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 unknown) (unknown) (no (unknown) (unknown) Osteoporosis (units (u nknown) date) unknown) (unknown) (no (unknown) (unknown) Other Menstrual (units (unknown) date) Period: unknown) Postmenopausal (unknown) (no (unknown) (unknown) Oxygen Delivery (units (unknown) date) Method room air unknown) (unknown) (no (unknown) (unknown) PFSH (units (unkno wn) date) unknown) (unknown) (no (unknown) (unknown) PTSD (units (unkno wn) date) (post-traumatic unknown) stress disorder) (unknown) (no (unknown) (unknown) Patient: (units (unkno wn) date) Whitley Oakes unknown) MR#: M (unknown) (no (unknown) (unknown) Pelvic somatic (units (unknown) date) dysfunction unknown) (unknown) (no (unknown) (unknown) Performing (units (unk nown) date) Provider: Laura unknown) Weeks, DO (unknown) (no (unknown) (unknown) Pernicious anemia (units (unknown) date) unknown) (unknown) (no (unknown) (unknown) Personality (units (un known) date) disorder unknown) (unknown) (no (unknown) (unknown) Position Sitting (units (unknown) date) unknown) (unknown) (no (unknown) (unknown) Pulse 112 H (units (un known) date) unknown) (unknown) (no (unknown) (unknown) Pulse Oximetry (%) (units (unknown) date) 97 unknown) (unknown) (no (unknown) (unknown) Pulse Source (units (u nknown) date) Monitor unknown) (unknown) (no (unknown) (unknown) S0LIWNUV #1 mL (units (unknown) date) 08/04/22 [Rx unknown) Confirmed 11/24/22] (unknown) (no (unknown) (unknown) RLS (restless legs (units (unknown) date) syndrome) unknown) (unknown) (no (unknown) (unknown) Reason For Visit (units (unknown) date) unknown) (unknown) (no (unknown) (unknown) Review/Discuss. (units (unknown) date) unknown) (unknown) (no (unknown) (unknown) Right shoulder (units (unknown) date) pain unknown) (unknown) (no (unknown) (unknown) SWELLING (units (unkno wn) date) unknown) (unknown) (no (unknown) (unknown) Sacral region (units ( unknown) date) somatic dysfunction unknown) (unknown) (no (unknown) (unknown) Sacroiliitis (units (u nknown) date) (2011) unknown) (unknown) (no (unknown) (unknown) Seborrheic (units (unk nown) date) keratosis unknown) (unknown) (no (unknown) (unknown) Segmental and (units ( unknown) date) somatic dysfunction unknown) of abdomen and other regions (unknown) (no (unknown) (unknown) Signed By: (units (unk nown) date) unknown) (unknown) (no (unknown) (unknown) Sister (units (unknown) date) Diabetes mellitus unknown) (unknown) (no (unknown) (unknown) Smoking Status: (units (unknown) date) Former smoker unknown) (unknown) (no (unknown) (unknown) Status post (units (un known) date) colonoscopy unknown) (09/2019) (unknown) (no (unknown) (unknown) Status post (units (un known) date) endoscopy (12/2019) unknown) (unknown) (no (unknown) (unknown) Status post (units (un known) date) reduction unknown) mammoplasty (07/2010) (unknown) (no (unknown) (unknown) Stroke (units (unkno wn) date) unknown) (unknown) (no (unknown) (unknown) Substance abuse (units (unknown) date) unknown) (unknown) (no (unknown) (unknown) Surgical History (units (unknown) date) (Updated 01/18/20 @ unknown) 15:38 by Summer Price DO) (unknown) (no (unknown) (unknown) This note may have (units (unknown) date) been all or unknown) partially generated using voice recognition (unknown) (no (unknown) (unknown) Thoracic region (units (unknown) date) somatic dysfunction unknown) (unknown) (no (unknown) (unknown) Tinnitus (units (unkno wn) date) unknown) (unknown) (no (unknown) (unknown) Tobacco + (units (unkn own) date) Substance Use unknown) (unknown) (no (unknown) (unknown) Tobacco Status (units (unknown) date) unknown) (unknown) (no (unknown) (unknown) Tubular adenoma of (units (unknown) date) colon (12/2014) unknown) (unknown) (no (unknown) (unknown) VIS Given Date VIS (units (unknown) date) Provided VIS unknown) Publication Date (unknown) (no (unknown) (unknown) Visit Reasons: OMT (units (unknown) date) #1/covid booster unknown) (unknown) (no (unknown) (unknown) Vitals (units (unkno wn) date) unknown) (unknown) (no (unknown) (unknown) [Rx Confirmed (units ( unknown) date) 11/24/22] unknown) (unknown) (no (unknown) (unknown) acetaminophen 300 (units (unknown) date) mg-codeine 30 mg unknown) tablet 1 tab PO Q6H PRN pain #5 tabs 11/17/22 (unknown) (no (unknown) (unknown) albuterol (units (unkn own) date) [ALBUTEROL] Allergy unknown) (Unknown, Verified 11/24/22 11:27) (unknown) (no (unknown) (unknown) bladder pain (units (u nknown) date) unknown) (unknown) (no (unknown) (unknown) cholecalciferol (units (unknown) date) (vitamin D3) 250 unknown) mcg (10,000 unit) tablet 10,000 tab PO QDAY ##0 (unknown) (no (unknown) (unknown) clonazepam 1 mg (units (unknown) date) tablet 0.5 mg PO unknown) BID PRN anxiety #10 tabs 02/19/22 [Rx Confirmed (unknown) (no (unknown) (unknown) congestion and (units (unknown) date) stomach problems unknown) (unknown) (no (unknown) (unknown) cyanocobalamin (units (unknown) date) (vitamin B-12) unknown) 1,000 mcg/mL injection solution 1,000 mcg IM (unknown) (no (unknown) (unknown) dexamethasone (units ( unknown) date) Adverse Reaction unknown) (Severe, Verified 11/24/22 11:27) (unknown) (no (unknown) (unknown) folic acid 5 mg PO (units (unknown) date) 04/08/22 [History unknown) Confirmed 11/24/22] (unknown) (no (unknown) (unknown) gentle iron PO (units (unknown) date) 12/09/21 [History unknown) Confirmed 11/24/22] (unknown) (no (unknown) (unknown) gluten [GLUTEN] (units (unknown) date) Allergy (Unknown, unknown) Verified 11/24/22 11:27) (unknown) (no (unknown) (unknown) grass pollen (units (u nknown) date) Allergy (Severe, unknown) Verified 11/24/22 11:27) (unknown) (no (unknown) (unknown) have occurred. If (units (unknown) date) there are any unknown) questions, please contact the Medical Records (unknown) (no (unknown) (unknown) hydromorphone (units ( unknown) date) [HYDROMORPHONE] unknown) Allergy (Mild, Verified 11/24/22 11:27) (unknown) (no (unknown) (unknown) hydroxocobalamin (units (unknown) date) 1,000 mcg/mL unknown) intramuscular solution 500 mcg (0.5 mL) IM BID #30 (unknown) (no (unknown) (unknown) insulin (units (unkno wn) date) syringe-needle unknown) U-100 1 mL 30 gauge x 1/2' (BD Insulin Syringe Ultra (unknown) (no (unknown) (unknown) k2 with vit D PO (units (unknown) date) 12/09/21 [History unknown) Confirmed 11/24/22] (unknown) (no (unknown) (unknown) lithium [LITHIUM] (units (unknown) date) Allergy (Unknown, unknown) Verified 11/24/22 11:27) (unknown) (no (unknown) (unknown) loratadine 10 mg (units (unknown) date) tablet (Claritin) unknown) 10 mg PO DAILY PRN allergic symptoms #90 tabs (unknown) (no (unknown) (unknown) mL 08/04/22 [Rx (units (unknown) date) Confirmed 11/24/22] unknown) (unknown) (no (unknown) (unknown) may occur. (units (unk nown) date) Occasional unknown) wrong-word or 'sound-alike' substitutions may have (unknown) (no (unknown) (unknown) occurred due to (units (unknown) date) the inherent unknown) limitations of voice recognition software. Please (unknown) (no (unknown) (unknown) ondansetron HCl 4 (units (unknown) date) mg tablet (Zofran) unknown) 4 mg PO Q4HP PRN #20 tabs 11/25/17 [Rx (unknown) (no (unknown) (unknown) read the note (units ( unknown) date) carefully and unknown) recognize, using context, where these substitutions (unknown) (no (unknown) (unknown) software. 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 (unknown) (no (unknown) (unknown) tachycardia (units (un known) date) unknown) (unknown) (no (unknown) (unknown) tizanidine 4 mg (units (unknown) date) tablet 4 mg PO Q8H unknown) PRN muscle spasticity #20 tabs 02/05/22 [Rx (unknown) (no (unknown) (unknown) vitamin c 1000 mg (units (unknown) date) PO 12/09/21 unknown) [History Confirmed 11/24/22] Result panel 15 (unknown) (no (unknown) (unknown) (no value) (units (unk nown) date) unknown) (unknown) (no (unknown) (unknown) 0.3 mL IM Left (units (unknown) date) Deltoid [id number] unknown) 06/07/23 [id number] [employer] CONS.HLT (unknown) (no (unknown) (unknown) [id number] (units (unkn own) date) unknown) (unknown) (no (unknown) (unknown) 11/24/22 Single (units (unknown) date) Vaccine 07/14/22 unknown) (unknown) (no (unknown) (unknown) 11/24/22 (units (unkno wn) date) unknown) (unknown) (no (unknown) (unknown) 11/24/22] (units (unkn own) date) unknown) (unknown) (no (unknown) (unknown) 12/26/17 [History (units (unknown) date) Confirmed 11/24/22] unknown) (unknown) (no (unknown) (unknown) 03/25/22 [Rx (units (u nknown) date) Confirmed 11/24/22] unknown) (unknown) (no (unknown) (unknown) 11:33 (units (unkno wn) date) unknown) (unknown) (no (unknown) (unknown) 7th day [facility] (units (unknown) date) unknown) (unknown) (no (unknown) (unknown) Abdomen: linea (units (unknown) date) alba restr, celiac unknown) ganglion restr (unknown) (no (unknown) (unknown) Acute pain of left (units (unknown) date) shoulder unknown) (unknown) (no (unknown) (unknown) Add'l Complaint: (units (unknown) date) unknown) (unknown) (no (unknown) (unknown) Administered by: (units (unknown) date) Lani Benavides CMA unknown) on 11/24/22 12:15 (unknown) (no (unknown) (unknown) Age/Sex: 67 / F (units (unknown) date) Date of Service: unknown) (unknown) (no (unknown) (unknown) Allergic reaction (units (unknown) date) to grass pollen unknown) (unknown) (no (unknown) (unknown) Allergic to cats (units (unknown) date) unknown) (unknown) (no (unknown) (unknown) Allergies (units (unkn own) date) unknown) (unknown) (no (unknown) (unknown) AMIE Allen (units ( unknown) date) [id number] unknown) (unknown) (no (unknown) (unknown) Anesthesia (units (unk nown) date) unknown) (unknown) (no (unknown) (unknown) Angina pectoris (units (unknown) date) unknown) (unknown) (no (unknown) (unknown) Ankle pain, (units (un known) date) chronic (2014) unknown) (unknown) (no (unknown) (unknown) Ankle pain, (units (un known) date) chronic unknown) (unknown) (no (unknown) (unknown) Anxiety (units (unkno wn) date) unknown) (unknown) (no (unknown) (unknown) Assessment + Plan (units (unknown) date) unknown) (unknown) (no (unknown) (unknown) Attending Dr: Laura (units (unknown) date) Weeks D.O. unknown) (unknown) (no (unknown) (unknown) B12 (IM after (units ( unknown) date) failing high dose unknown) sublingual) for occipital neuralgia, as well as (unknown) (no (unknown) (unknown) BP 140/84 (units (unkn own) date) unknown) (unknown) (no (unknown) (unknown) Bipolar disorder (units (unknown) date) unknown) (unknown) (no (unknown) (unknown) Blood Pressure (units (unknown) date) Location Lt unknown) brachial (unknown) (no (unknown) (unknown) Brain cancer (units (u nknown) date) unknown) (unknown) (no (unknown) (unknown) COVID Booster -- (units (unknown) date) left arm preferred. unknown) (unknown) (no (unknown) (unknown) COVID PFIZER (units (u nknown) date) Bivalent Booster unknown) Today Z23 - Encounter for immunization (unknown) (no (unknown) (unknown) COVID-19 vac, bv (units (unknown) date) (Pfizer)(PF) unknown) (unknown) (no (unknown) (unknown) Cervical somatic (units (unknown) date) dysfunction unknown) (unknown) (no (unknown) (unknown) Cervical: C4 FRSL (units (unknown) date) ? 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 (unknown) (no (unknown) (unknown) Chronic left-sided (units (unknown) date) thoracic back pain unknown) (unknown) (no (unknown) (unknown) Comment PT (units (unk nown) date) declined weight unknown) today (unknown) (no (unknown) (unknown) 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 [id number] () (unknown) (no (unknown) (unknown) Compression (units (un known) date) fracture of body of unknown) thoracic vertebra () (unknown) (no (unknown) (unknown) Confirmed (units (unkn own) date) 11/24/22] unknown) (unknown) (no (unknown) (unknown) Cranial somatic (units (unknown) date) dysfunction unknown) (unknown) (no (unknown) (unknown) DAIRY Allergy (units ( unknown) date) (Intermediate, unknown) Uncoded 11/24/22 11:27) (unknown) (no (unknown) (unknown) : 1955 (units (unknown) date) Acct:[id number] unknown) (unknown) (no (unknown) (unknown) Depression (units (unk nown) date) (09/21/14) unknown) (unknown) (no (unknown) (unknown) Depression (units (unk nown) date) unknown) (unknown) (no (unknown) (unknown) Dept at (units (unkno wn) date) . unknown) (unknown) (no (unknown) (unknown) Details: (units (unkno wn) date) unknown) (unknown) (no (unknown) (unknown) Disabled Parking (units (unknown) date) Permit #1 ea unknown) 04/08/22 [Rx Confirmed 11/24/22] (unknown) (no (unknown) (unknown) Documented By: (units (unknown) date) Laura Parikh D.O. unknown) 11/24/22 1123 (unknown) (no (unknown) (unknown) Dose Route Admin (units (unknown) date) Location Lot Number unknown) Expiration Date NDC (unknown) (no (unknown) (unknown) Draft (units (unkno wn) date) unknown) (unknown) (no (unknown) (unknown) Eligibility (units (un known) date) Eligibility Date unknown) Funding Source (unknown) (no (unknown) (unknown) Environmental (units ( unknown) date) allergies unknown) (unknown) (no (unknown) (unknown) Esophageal (units (unk nown) date) stricture unknown) (unknown) (no (unknown) (unknown) Esophagitis (units (un known) date) unknown) (unknown) (no (unknown) (unknown) Exam Narrative (units (unknown) date) unknown) (unknown) (no (unknown) (unknown) Exam Narrative: (units (unknown) date) unknown) (unknown) (no (unknown) (unknown) Exam (units (unkno wn) date) unknown) (unknown) (no (unknown) (unknown) Family History (units (unknown) date) (Updated 06/08/18 @ unknown) 12:37 by Rabia Jacob) (unknown) (no (unknown) (unknown) Family Practice (units (unknown) date) Office Visit unknown) (unknown) (no (unknown) (unknown) Fibromyalgia (units (u nknown) date) unknown) (unknown) (no (unknown) (unknown) [facility] unknown) (unknown) (no (unknown) (unknown) Fine) See Rx (units (u nknown) date) Instructions .Route unknown) .COMPLEX #200 ea 08/04/22 [Rx Confirmed (unknown) (no (unknown) (unknown) Foot pain (2011) (units (unknown) date) unknown) (unknown) (no (unknown) (unknown) Gastropathy (units (un known) date) unknown) (unknown) (no (unknown) (unknown) General: pleasant, (units (unknown) date) cooperative, unknown) +central adiposity, sitting comfortably in no (unknown) (no (unknown) (unknown) Gets relief with (units (unknown) date) OMT unknown) (unknown) (no (unknown) (unknown) Grandmother (units (un known) date) Diabetes mellitus unknown) (unknown) (no (unknown) (unknown) HPI (units (unkno wn) date) unknown) (unknown) (no (unknown) (unknown) Hayfever (units (unkno wn) date) unknown) (unknown) (no (unknown) (unknown) Head: b/l OM (units (u nknown) date) restr, SBS compr unknown) (unknown) (no (unknown) (unknown) Heart disease (units ( unknown) date) unknown) (unknown) (no (unknown) (unknown) Height 5 ft 3.5 in (units (unknown) date) unknown) (unknown) (no (unknown) (unknown) Hemorrhoids (units (un known) date) unknown) (unknown) (no (unknown) (unknown) Hiatal hernia (units ( unknown) date) unknown) (unknown) (no (unknown) (unknown) High cholesterol (units (unknown) date) unknown) (unknown) (no (unknown) (unknown) History of (units (unk nown) date) diabetes mellitus unknown) (unknown) (no (unknown) (unknown) History of (units (unk nown) date) fundoplication unknown) (unknown) (no (unknown) (unknown) History of repair (units (unknown) date) of hiatal hernia unknown) (11/2011) (unknown) (no (unknown) (unknown) History of (units (unk nown) date) tonsillectomy unknown) (1972) (unknown) (no (unknown) (unknown) Hives (units (unkno wn) date) unknown) (unknown) (no (unknown) (unknown) Hypertension (units (u nknown) date) unknown) (unknown) (no (unknown) (unknown) Hypothyroidism (units (unknown) date) unknown) (unknown) (no (unknown) (unknown) IBS (irritable (units (unknown) date) bowel syndrome) unknown) (unknown) (no (unknown) (unknown) 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) unknown) (unknown) (no (unknown) (unknown) Immunizations (units ( unknown) date) unknown) (unknown) (no (unknown) (unknown) Intake Note: (units (u nknown) date) unknown) (unknown) (no (unknown) (unknown) Intake performed (units (unknown) date) by: Yara Schmitz unknown) (unknown) (no (unknown) (unknown) Intake (units (unkno wn) date) unknown) (unknown) (no (unknown) (unknown) Intake- Clincial (units (unknown) date) Staff unknown) (unknown) (no (unknown) (unknown) Last Menstural (units (unknown) date) Cycle + Details unknown) (unknown) (no (unknown) (unknown) Liver cancer (units (u nknown) date) unknown) (unknown) (no (unknown) (unknown) Loc: [facility] (units (unkno wn) date) unknown) (unknown) (no (unknown) (unknown) Lower extremities: (units (unknown) date) R subtalar restr unknown) (unknown) (no (unknown) (unknown) Lumbar facet (units (u nknown) date) arthropathy (2014) unknown) (unknown) (no (unknown) (unknown) Lumbar region (units ( unknown) date) somatic dysfunction unknown) (unknown) (no (unknown) (unknown) Lumbar: L1 FRSR (units (unknown) date) unknown) (unknown) (no (unknown) (unknown) Lung cancer (units (un known) date) unknown) (unknown) (no (unknown) (unknown) 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 (units (unkno wn) date) unknown) (unknown) (no (unknown) (unknown) Obesity (units (unkno wn) date) unknown) (unknown) (no (unknown) (unknown) Orders (units (unkno wn) date) unknown) (unknown) (no (unknown) (unknown) Orders: (units (unkno wn) date) unknown) (unknown) (no (unknown) (unknown) Osteoarthritis (units (unknown) date) (2012) unknown) (unknown) (no (unknown) (unknown) Osteopathic (units (un known) date) Structural Exam: unknown) (unknown) (no (unknown) (unknown) 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 unknown) (unknown) (no (unknown) (unknown) Osteoporosis (units (u nknown) date) unknown) (unknown) (no (unknown) (unknown) Other Menstrual (units (unknown) date) Period: unknown) Postmenopausal (unknown) (no (unknown) (unknown) Oxygen Delivery (units (unknown) date) Method room air unknown) (unknown) (no (unknown) (unknown) PFSH (units (unkno wn) date) unknown) (unknown) (no (unknown) (unknown) PTSD (units (unkno wn) date) (post-traumatic unknown) stress disorder) (unknown) (no (unknown) (unknown) Patient: (units (unkno wn) date) Whitley Oakes unknown) MR#: M (unknown) (no (unknown) (unknown) Pelvic somatic (units (unknown) date) dysfunction unknown) (unknown) (no (unknown) (unknown) Pelvis: L ant (units ( unknown) date) unknown) (unknown) (no (unknown) (unknown) Performing (units (unk nown) date) Provider: Laura unknown) Weeks, DO (unknown) (no (unknown) (unknown) Pernicious anemia (units (unknown) date) unknown) (unknown) (no (unknown) (unknown) Personality (units (un known) date) disorder unknown) (unknown) (no (unknown) (unknown) Position Sitting (units (unknown) date) unknown) (unknown) (no (unknown) (unknown) Psych: well kempt, (units (unknown) date) speech and movement unknown) normal, normal affect (unknown) (no (unknown) (unknown) Pulse 112 H (units (un known) date) unknown) (unknown) (no (unknown) (unknown) Pulse Oximetry (%) (units (unknown) date) 97 unknown) (unknown) (no (unknown) (unknown) Pulse Source (units (u nknown) date) Monitor unknown) (unknown) (no (unknown) (unknown) [id number] #1 mL (units (unknown) date) 08/04/22 [Rx unknown) Confirmed 11/24/22] (unknown) (no (unknown) (unknown) RLS (restless legs (units (unknown) date) syndrome) unknown) (unknown) (no (unknown) (unknown) Reason For Visit (units (unknown) date) unknown) (unknown) (no (unknown) (unknown) Resp: normal (units (u nknown) date) effort, able to unknown) speak in complete sentences (unknown) (no (unknown) (unknown) Review/Discuss. (units (unknown) date) unknown) (unknown) (no (unknown) (unknown) Ribcage: R2-3 post (units (unknown) date) unknown) (unknown) (no (unknown) (unknown) Right shoulder (units (unknown) date) pain unknown) (unknown) (no (unknown) (unknown) SWELLING (units (unkno wn) date) unknown) (unknown) (no (unknown) (unknown) Sacral region (units ( unknown) date) somatic dysfunction unknown) (unknown) (no (unknown) (unknown) Sacroiliitis (units (u nknown) date) (2012) unknown) (unknown) (no (unknown) (unknown) Sacrum: b/l F, L>R (units (unknown) date) SI restr unknown) (unknown) (no (unknown) (unknown) Seborrheic (units (unk nown) date) keratosis unknown) (unknown) (no (unknown) (unknown) Seeing podiatry (units (unknown) date) later today for now unknown) R>L, prev L>R ankle pain (unknown) (no (unknown) (unknown) Seems like small (units (unknown) date) stumbles cause unknown) injuries (unknown) (no (unknown) (unknown) Segmental and (units ( unknown) date) somatic dysfunction unknown) of abdomen and other regions (unknown) (no (unknown) (unknown) Signed By: (units (unk nown) date) unknown) (unknown) (no (unknown) (unknown) Sister (units (unknown) date) Diabetes mellitus unknown) (unknown) (no (unknown) (unknown) Smoking Status: (units (unknown) date) Former smoker unknown) (unknown) (no (unknown) (unknown) Status post (units (un known) date) colonoscopy unknown) (09/2019) (unknown) (no (unknown) (unknown) Status post (units (un known) date) endoscopy (12/2019) unknown) (unknown) (no (unknown) (unknown) Status post (units (un known) date) reduction unknown) mammoplasty (07/2010) (unknown) (no (unknown) (unknown) Stroke (units (unkno wn) date) unknown) (unknown) (no (unknown) (unknown) Substance abuse (units (unknown) date) unknown) (unknown) (no (unknown) (unknown) Surgical History (units (unknown) date) (Updated 01/18/20 @ unknown) 15:38 by Summer Price DO) (unknown) (no (unknown) (unknown) This note may have (units (unknown) date) been all or unknown) partially generated using voice recognition (unknown) (no (unknown) (unknown) Thoracic region (units (unknown) date) somatic dysfunction unknown) (unknown) (no (unknown) (unknown) Thoracic: T5-9 (units (unknown) date) paraspinal htn, T7 unknown) FRSR (unknown) (no (unknown) (unknown) Tinnitus (units (unkno wn) date) unknown) (unknown) (no (unknown) (unknown) Tobacco + (units (unkn own) date) Substance Use unknown) (unknown) (no (unknown) (unknown) Tobacco Status (units (unknown) date) unknown) (unknown) (no (unknown) (unknown) Tubular adenoma of (units (unknown) date) colon (12/2014) unknown) (unknown) (no (unknown) (unknown) Upper extremities: (units (unknown) date) unknown) (unknown) (no (unknown) (unknown) VIS Given Date VIS (units (unknown) date) Provided VIS unknown) Publication Date (unknown) (no (unknown) (unknown) Visit Reasons: OMT (units (unknown) date) #1/covid booster unknown) (unknown) (no (unknown) (unknown) Vitals (units (unkno wn) date) unknown) (unknown) (no (unknown) (unknown) Albert's (units (unkn own) date) unknown) (unknown) (no (unknown) (unknown) [Rx Confirmed (units ( unknown) date) 11/24/22] unknown) (unknown) (no (unknown) (unknown) acetaminophen 300 (units (unknown) date) mg-codeine 30 mg unknown) tablet 1 tab PO Q6H PRN pain #5 tabs 11/17/22 (unknown) (no (unknown) (unknown) acute distress, (units (unknown) date) has crutch for unknown) ambulation (unknown) (no (unknown) (unknown) albuterol (units (unkn own) date) [ALBUTEROL] Allergy unknown) (Unknown, Verified 11/24/22 11:27) (unknown) (no (unknown) (unknown) ankle pain (units (unk nown) date) unknown) (unknown) (no (unknown) (unknown) bladder pain (units (u nknown) date) unknown) (unknown) (no (unknown) (unknown) cholecalciferol (units (unknown) date) (vitamin D3) 250 unknown) mcg (10,000 unit) tablet 10,000 tab PO QDAY ##0 (unknown) (no (unknown) (unknown) clonazepam 1 mg (units (unknown) date) tablet 0.5 mg PO unknown) BID PRN anxiety #10 tabs 02/19/22 [Rx Confirmed (unknown) (no (unknown) (unknown) congestion and (units (unknown) date) stomach problems unknown) (unknown) (no (unknown) (unknown) cyanocobalamin (units (unknown) date) (vitamin B-12) unknown) 1,000 mcg/mL injection solution 1,000 mcg IM (unknown) (no (unknown) (unknown) dexamethasone (units ( unknown) date) Adverse Reaction unknown) (Severe, Verified 11/24/22 11:27) (unknown) (no (unknown) (unknown) did comprehensive (units (unknown) date) stool analysis unknown) through [facility] too (unknown) (no (unknown) (unknown) did have SIBO (units ( unknown) date) breath through unknown) [facility] but unable to get results because was Dr (unknown) (no (unknown) (unknown) folic acid 5 mg PO (units (unknown) date) 04/08/22 [History unknown) Confirmed 11/24/22] (unknown) (no (unknown) (unknown) folic acid (units (unk nown) date) unknown) (unknown) (no (unknown) (unknown) gastritis flares (units (unknown) date) unknown) (unknown) (no (unknown) (unknown) gentle iron PO (units (unknown) date) 12/09/21 [History unknown) Confirmed 11/24/22] (unknown) (no (unknown) (unknown) gluten [GLUTEN] (units (unknown) date) Allergy (Unknown, unknown) Verified 11/24/22 11:27) (unknown) (no (unknown) (unknown) gluten free vegan (units (unknown) date) unknown) (unknown) (no (unknown) (unknown) grass pollen (units (u nknown) date) Allergy (Severe, unknown) Verified 11/24/22 11:27) (unknown) (no (unknown) (unknown) have occurred. If (units (unknown) date) there are any unknown) questions, please contact the Medical Records (unknown) (no (unknown) (unknown) hoping to get a (units (unknown) date) formulation without unknown) additive (unknown) (no (unknown) (unknown) hydromorphone (units ( unknown) date) [HYDROMORPHONE] unknown) Allergy (Mild, Verified 11/24/22 11:27) (unknown) (no (unknown) (unknown) hydroxocobalamin (units (unknown) date) 1,000 mcg/mL unknown) intramuscular solution 500 mcg (0.5 mL) IM BID #30 (unknown) (no (unknown) (unknown) insulin (units (unkno wn) date) syringe-needle unknown) U-100 1 mL 30 gauge x 1/2' (BD Insulin Syringe Ultra (unknown) (no (unknown) (unknown) iodine and (units (unk nown) date) selenium for unknown) thyroid, rather than taking thyroid (unknown) (no (unknown) (unknown) k2 with vit D PO (units (unknown) date) 12/09/21 [History unknown) Confirmed 11/24/22] (unknown) (no (unknown) (unknown) lithium [LITHIUM] (units (unknown) date) Allergy (Unknown, unknown) Verified 11/24/22 11:27) (unknown) (no (unknown) (unknown) loratadine 10 mg (units (unknown) date) tablet (Claritin) unknown) 10 mg PO DAILY PRN allergic symptoms #90 tabs (unknown) (no (unknown) (unknown) mL 08/04/22 [Rx (units (unknown) date) Confirmed 11/24/22] unknown) (unknown) (no (unknown) (unknown) magnesium (units (unkn own) date) unknown) (unknown) (no (unknown) (unknown) may occur. (units (unk nown) date) Occasional unknown) wrong-word or 'sound-alike' substitutions may have (unknown) (no (unknown) (unknown) occurred due to (units (unknown) date) the inherent unknown) limitations of voice recognition software. Please (unknown) (no (unknown) (unknown) ondansetron HCl 4 (units (unknown) date) mg tablet (Zofran) unknown) 4 mg PO Q4HP PRN #20 tabs 11/25/17 [Rx (unknown) (no (unknown) (unknown) polyneuropathies (units (unknown) date) unknown) (unknown) (no (unknown) (unknown) read the note (units ( unknown) date) carefully and unknown) recognize, using context, where these substitutions (unknown) (no (unknown) (unknown) software. 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 (unknown) (no (unknown) (unknown) tachycardia (units (un known) date) unknown) (unknown) (no (unknown) (unknown) takes: (units (unkno wn) date) unknown) (unknown) (no (unknown) (unknown) tizanidine 4 mg (units (unknown) date) tablet 4 mg PO Q8H unknown) PRN muscle spasticity #20 tabs 02/05/22 [Rx (unknown) (no (unknown) (unknown) vitamin C / iron (units (unknown) date) 125mg plant based unknown) (unknown) (no (unknown) (unknown) vitamin D / K2 (units (unknown) date) / unknown) (unknown) (no (unknown) (unknown) vitamin c 1000 mg (units (unknown) date) PO 12/09/21 unknown) [History Confirmed 11/24/22] (unknown) (no (unknown) (unknown) wants refills on (units (unknown) date) B12 and needles unknown) Result panel 16 (unknown) (no (unknown) (unknown) (no value) (units (unk nown) date) unknown) (unknown) (no (unknown) (unknown) (1) Ankle pain, (units (unknown) date) chronic: unknown) (unknown) (no (unknown) (unknown) (10) Somatic (units (u nknown) date) dysfunction of unknown) abdominal region: (unknown) (no (unknown) (unknown) (11) Somatic (units (u nknown) date) dysfunction of rib unknown) region: (unknown) (no (unknown) (unknown) (12) Somatic (units (u nknown) date) dysfunction of unknown) lower extremity: (unknown) (no (unknown) (unknown) (2) IBS (irritable (units (unknown) date) bowel syndrome): unknown) (unknown) (no (unknown) (unknown) (3) Pernicious (units (unknown) date) anemia: unknown) (unknown) (no (unknown) (unknown) (4) Cranial (units (un known) date) somatic unknown) dysfunction: (unknown) (no (unknown) (unknown) (5) Cervical (units (u nknown) date) somatic unknown) dysfunction: (unknown) (no (unknown) (unknown) (6) Thoracic (units (u nknown) date) region somatic unknown) dysfunction: (unknown) (no (unknown) (unknown) (7) Lumbar region (units (unknown) date) somatic unknown) dysfunction: (unknown) (no (unknown) (unknown) (8) Pelvic somatic (units (unknown) date) dysfunction: unknown) (unknown) (no (unknown) (unknown) (9) Sacral region (units (unknown) date) somatic unknown) dysfunction: (unknown) (no (unknown) (unknown) 0.3 mL IM Left (units (unknown) date) Deltoid [id number] unknown) 06/07/23 [id number] PFIZER CONS.HLT (unknown) (no (unknown) (unknown) [id number] (units (unkn own) date) unknown) (unknown) (no (unknown) (unknown) 11/24/22 1349 (units ( unknown) date) unknown) (unknown) (no (unknown) (unknown) 11/24/22 Single (units (unknown) date) Vaccine 07/14/22 unknown) (unknown) (no (unknown) (unknown) 11/24/22 (units (unkno wn) date) unknown) (unknown) (no (unknown) (unknown) 11/24/22] (units (unkn own) date) unknown) (unknown) (no (unknown) (unknown) 12/26/17 [History (units (unknown) date) Confirmed 11/24/22] unknown) (unknown) (no (unknown) (unknown) 03/25/22 [Rx (units (u nknown) date) Confirmed 11/24/22] unknown) (unknown) (no (unknown) (unknown) 11:33 (units (unkno wn) date) unknown) (unknown) (no (unknown) (unknown) 7th day [facility] (units (unknown) date) unknown) (unknown) (no (unknown) (unknown) Abdomen: linea (units (unknown) date) alba restr, celiac unknown) ganglion restr (unknown) (no (unknown) (unknown) Acute pain of left (units (unknown) date) shoulder unknown) (unknown) (no (unknown) (unknown) Add'l Complaint: (units (unknown) date) unknown) (unknown) (no (unknown) (unknown) Administered by: (units (unknown) date) Lani Benavides CMA unknown) on 11/24/22 12:15 (unknown) (no (unknown) (unknown) Age/Sex: 67 / F (units (unknown) date) Date of Service: unknown) (unknown) (no (unknown) (unknown) Allergic reaction (units (unknown) date) to grass pollen unknown) (unknown) (no (unknown) (unknown) Allergic to cats (units (unknown) date) unknown) (unknown) (no (unknown) (unknown) Allergies (units (unkn own) date) unknown) (unknown) (no (unknown) (unknown) [place] (units ( unknown) date) [id number] unknown) (unknown) (no (unknown) (unknown) Anesthesia (units (unk nown) date) unknown) (unknown) (no (unknown) (unknown) Angina pectoris (units (unknown) date) unknown) (unknown) (no (unknown) (unknown) Ankle pain, (units (un known) date) chronic (2014) unknown) (unknown) (no (unknown) (unknown) Ankle pain, (units (un known) date) chronic unknown) (unknown) (no (unknown) (unknown) Anxiety (units (unkno wn) date) unknown) (unknown) (no (unknown) (unknown) Assessment + Plan (units (unknown) date) unknown) (unknown) (no (unknown) (unknown) Attending Dr: Laura (units (unknown) date) Weeks D.O. unknown) (unknown) (no (unknown) (unknown) B12 (IM after (units ( unknown) date) failing high dose unknown) sublingual) for occipital neuralgia, as well as (unknown) (no (unknown) (unknown) BP 140/84 (units (unkn own) date) unknown) (unknown) (no (unknown) (unknown) Billing- OMT (units (u nknown) date) Therapy: OMT 9-10 unknown) Body Regions- 89000 (unknown) (no (unknown) (unknown) Bipolar disorder (units (unknown) date) unknown) (unknown) (no (unknown) (unknown) Blood Pressure (units (unknown) date) Location Lt unknown) brachial (unknown) (no (unknown) (unknown) Brain cancer (units (u nknown) date) unknown) (unknown) (no (unknown) (unknown) COVID Booster -- (units (unknown) date) left arm preferred. unknown) (unknown) (no (unknown) (unknown) COVID PFIZER (units (u nknown) date) Bivalent Booster unknown) Today Z23 - Encounter for immunization (unknown) (no (unknown) (unknown) COVID-19 vac, bv (units (unknown) date) (Pfizer)(PF) unknown) (unknown) (no (unknown) (unknown) Cervical somatic (units (unknown) date) dysfunction unknown) (unknown) (no (unknown) (unknown) Cervical: C4 FRSL (units (unknown) date) ? 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 (unknown) (no (unknown) (unknown) Chronic left-sided (units (unknown) date) thoracic back pain unknown) (unknown) (no (unknown) (unknown) Comment PT (units (unk nown) date) declined weight unknown) today (unknown) (no (unknown) (unknown) 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) (unknown) (no (unknown) (unknown) Compression (units (un known) date) fracture of body of unknown) thoracic vertebra (-04/2021) (unknown) (no (unknown) (unknown) Confirmed (units (unkn own) date) 11/24/22] unknown) (unknown) (no (unknown) (unknown) Cranial somatic (units (unknown) date) dysfunction unknown) (unknown) (no (unknown) (unknown) DAIRY Allergy (units ( unknown) date) (Intermediate, unknown) Uncoded 11/24/22 11:27) (unknown) (no (unknown) (unknown) : 1955 (units (unknown) date) Acct:[id number] unknown) (unknown) (no (unknown) (unknown) Depression (units (unk nown) date) (09/21/14) unknown) (unknown) (no (unknown) (unknown) Depression (units (unk nown) date) unknown) (unknown) (no (unknown) (unknown) Dept at (units (unkno wn) date) . unknown) (unknown) (no (unknown) (unknown) Details: (units (unkno wn) date) unknown) (unknown) (no (unknown) (unknown) Disabled Parking (units (unknown) date) Permit #1 ea unknown) 04/08/22 [Rx Confirmed 11/24/22] (unknown) (no (unknown) (unknown) Documented By: (units (unknown) date) Laura Parikh D.O. unknown) 11/24/22 1123 (unknown) (no (unknown) (unknown) Dose Route Admin (units (unknown) date) Location Lot Number unknown) Expiration Date NDC (unknown) (no (unknown) (unknown) Eligibility (units (un known) date) Eligibility Date unknown) Funding Source (unknown) (no (unknown) (unknown) Environmental (units ( unknown) date) allergies unknown) (unknown) (no (unknown) (unknown) Esophageal (units (unk nown) date) stricture unknown) (unknown) (no (unknown) (unknown) Esophagitis (units (un known) date) unknown) (unknown) (no (unknown) (unknown) Exam Narrative (units (unknown) date) unknown) (unknown) (no (unknown) (unknown) Exam Narrative: (units (unknown) date) unknown) (unknown) (no (unknown) (unknown) Exam (units (unkno wn) date) unknown) (unknown) (no (unknown) (unknown) Family History (units (unknown) date) (Updated 06/08/18 @ unknown) 12:37 by Rabia Jacob) (unknown) (no (unknown) (unknown) Family Practice (units (unknown) date) Office Visit unknown) (unknown) (no (unknown) (unknown) Fibromyalgia (units (u nknown) date) unknown) (unknown) (no (unknown) (unknown) [facility] unknown) (unknown) (no (unknown) (unknown) Fine) See Rx (units (u nknown) date) Instructions .Route unknown) .COMPLEX #200 ea 08/04/22 [Rx Confirmed (unknown) (no (unknown) (unknown) Foot pain (2011) (units (unknown) date) unknown) (unknown) (no (unknown) (unknown) Gastropathy (units (un known) date) unknown) (unknown) (no (unknown) (unknown) General: pleasant, (units (unknown) date) cooperative, unknown) +central adiposity, sitting comfortably in no (unknown) (no (unknown) (unknown) Gets relief with (units (unknown) date) OMT unknown) (unknown) (no (unknown) (unknown) Grandmother (units (un known) date) Diabetes mellitus unknown) (unknown) (no (unknown) (unknown) HPI (units (unkno wn) date) unknown) (unknown) (no (unknown) (unknown) Hayfever (units (unkno wn) date) unknown) (unknown) (no (unknown) (unknown) Head: b/l OM (units (u nknown) date) restr, SBS compr unknown) (unknown) (no (unknown) (unknown) Heart disease (units ( unknown) date) unknown) (unknown) (no (unknown) (unknown) Height 5 ft 3.5 in (units (unknown) date) unknown) (unknown) (no (unknown) (unknown) Hemorrhoids (units (un known) date) unknown) (unknown) (no (unknown) (unknown) Hiatal hernia (units ( unknown) date) unknown) (unknown) (no (unknown) (unknown) High cholesterol (units (unknown) date) unknown) (unknown) (no (unknown) (unknown) History of (units (unk nown) date) diabetes mellitus unknown) (unknown) (no (unknown) (unknown) History of (units (unk nown) date) fundoplication unknown) (unknown) (no (unknown) (unknown) History of repair (units (unknown) date) of hiatal hernia unknown) (11/2011) (unknown) (no (unknown) (unknown) History of (units (unk nown) date) tonsillectomy unknown) (1972) (unknown) (no (unknown) (unknown) Hives (units (unkno wn) date) unknown) (unknown) (no (unknown) (unknown) Hypertension (units (u nknown) date) unknown) (unknown) (no (unknown) (unknown) Hypothyroidism (units (unknown) date) unknown) (unknown) (no (unknown) (unknown) IBS (irritable (units (unknown) date) bowel syndrome) unknown) (unknown) (no (unknown) (unknown) 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) unknown) (unknown) (no (unknown) (unknown) Immunizations (units ( unknown) date) unknown) (unknown) (no (unknown) (unknown) Informed consent (units (unknown) date) given: Yes unknown) (unknown) (no (unknown) (unknown) Intake Note: (units (u nknown) date) unknown) (unknown) (no (unknown) (unknown) Intake performed (units (unknown) date) by: Yara Schmitz unknown) (unknown) (no (unknown) (unknown) Intake (units (unkno wn) date) unknown) (unknown) (no (unknown) (unknown) Intake- Clincial (units (unknown) date) Staff unknown) (unknown) (no (unknown) (unknown) Irritable bowel (units (unknown) date) syndrome type: with unknown) both diarrhea and constipation (unknown) (no (unknown) (unknown) Last Menstural (units (unknown) date) Cycle + Details unknown) (unknown) (no (unknown) (unknown) Laterality: left (units (unknown) date) Qualified Code(s): unknown) M25.572 - Pain in left ankle and (unknown) (no (unknown) (unknown) Liver cancer (units (u nknown) date) unknown) (unknown) (no (unknown) (unknown) Loc: [facility] (units (unkno wn) date) unknown) (unknown) (no (unknown) (unknown) Lower extremities: (units (unknown) date) R subtalar restr unknown) (unknown) (no (unknown) (unknown) Lumbar facet (units (u nknown) date) arthropathy (2014) unknown) (unknown) (no (unknown) (unknown) Lumbar region (units ( unknown) date) somatic dysfunction unknown) (unknown) (no (unknown) (unknown) Lumbar: L1 FRSR (units (unknown) date) unknown) (unknown) (no (unknown) (unknown) Lung cancer (units (un known) date) unknown) (unknown) (no (unknown) (unknown) MFR, BLT, cranial, (units (unknown) date) GOT, PH unknown) (unknown) (no (unknown) (unknown) Managing IBS and (units (unknown) date) pernicious anemia unknown) with supplementation and dietary (unknown) (no (unknown) (unknown) 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) (unknown) (no (unknown) (unknown) Medical History (units (unknown) date) (Updated 11/24/22 @ unknown) 13:48 by Laura Parikh DO) (unknown) (no (unknown) (unknown) Medications (units (un known) date) unknown) (unknown) (no (unknown) (unknown) Mother (units (unknown) date) Diabetes mellitus unknown) (unknown) (no (unknown) (unknown) Neuro: alert and (units (unknown) date) oriented to person unknown) and situation (unknown) (no (unknown) (unknown) Not VFC Eligible (units (unknown) date) 11/24/22 Private unknown) Funds (unknown) (no (unknown) (unknown) OMM Procedure (units ( unknown) date) Notes: unknown) (unknown) (no (unknown) (unknown) OMT today per OSE (units (unknown) date) unknown) (unknown) (no (unknown) (unknown) OMT. (units (unkno wn) date) unknown) (unknown) (no (unknown) (unknown) Obesity (units (unkno wn) date) unknown) (unknown) (no (unknown) (unknown) Office Procedures (units (unknown) date) unknown) (unknown) (no (unknown) (unknown) Orders (units (unkno wn) date) unknown) (unknown) (no (unknown) (unknown) Orders: (units (unkno wn) date) unknown) (unknown) (no (unknown) (unknown) Osteoarthritis (units (unknown) date) (2012) unknown) (unknown) (no (unknown) (unknown) Osteopathic (units (un known) date) Structural Exam: unknown) (unknown) (no (unknown) (unknown) 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 unknown) (unknown) (no (unknown) (unknown) Osteoporosis (units (u nknown) date) unknown) (unknown) (no (unknown) (unknown) Other Menstrual (units (unknown) date) Period: unknown) Postmenopausal (unknown) (no (unknown) (unknown) Oxygen Delivery (units (unknown) date) Method room air unknown) (unknown) (no (unknown) (unknown) PFSH (units (unkno wn) date) unknown) (unknown) (no (unknown) (unknown) PTSD (units (unkno wn) date) (post-traumatic unknown) stress disorder) (unknown) (no (unknown) (unknown) Pain worse than (units (unknown) date) baseline. Does have unknown) upcoming podiatry to eval b/l ankles. (unknown) (no (unknown) (unknown) Patient: (units (unkno wn) date) Whitley Oakes unknown) MR#: M (unknown) (no (unknown) (unknown) Pelvic somatic (units (unknown) date) dysfunction unknown) (unknown) (no (unknown) (unknown) Pelvis: L ant (units ( unknown) date) unknown) (unknown) (no (unknown) (unknown) Performing (units (unk nown) date) Provider: Laura unknown) Weeks, DO (unknown) (no (unknown) (unknown) Pernicious anemia (units (unknown) date) unknown) (unknown) (no (unknown) (unknown) Personality (units (un known) date) disorder unknown) (unknown) (no (unknown) (unknown) Plan (units (unkno wn) date) unknown) (unknown) (no (unknown) (unknown) Position Sitting (units (unknown) date) unknown) (unknown) (no (unknown) (unknown) Psych: well kempt, (units (unknown) date) speech and movement unknown) normal, normal affect (unknown) (no (unknown) (unknown) Pulse 112 H (units (un known) date) unknown) (unknown) (no (unknown) (unknown) Pulse Oximetry (%) (units (unknown) date) 97 unknown) (unknown) (no (unknown) (unknown) Pulse Source (units (u nknown) date) Monitor unknown) (unknown) (no (unknown) (unknown) [id number] #1 mL (units (unknown) date) 08/04/22 [Rx unknown) Confirmed 11/24/22] (unknown) (no (unknown) (unknown) Qualified Code(s): (units (unknown) date) K58.2 - Mixed unknown) irritable bowel syndrome (unknown) (no (unknown) (unknown) Qualifiers: (units (un known) date) unknown) (unknown) (no (unknown) (unknown) RLS (restless legs (units (unknown) date) syndrome) unknown) (unknown) (no (unknown) (unknown) Reason For Visit (units (unknown) date) unknown) (unknown) (no (unknown) (unknown) Resp: normal (units (u nknown) date) effort, able to unknown) speak in complete sentences (unknown) (no (unknown) (unknown) Review/Discuss. (units (unknown) date) unknown) (unknown) (no (unknown) (unknown) Ribcage: R2-3 post (units (unknown) date) unknown) (unknown) (no (unknown) (unknown) Right shoulder (units (unknown) date) pain unknown) (unknown) (no (unknown) (unknown) SWELLING (units (unkno wn) date) unknown) (unknown) (no (unknown) (unknown) Sacral region (units ( unknown) date) somatic dysfunction unknown) (unknown) (no (unknown) (unknown) Sacroiliitis (units (u nknown) date) (2012) unknown) (unknown) (no (unknown) (unknown) Sacrum: b/l F, L>R (units (unknown) date) SI restr unknown) (unknown) (no (unknown) (unknown) Seborrheic (units (unk nown) date) keratosis unknown) (unknown) (no (unknown) (unknown) Seeing podiatry (units (unknown) date) later today for now unknown) R>L, prev L>R ankle pain (unknown) (no (unknown) (unknown) Seems like small (units (unknown) date) stumbles cause unknown) injuries (unknown) (no (unknown) (unknown) Signed By: (units (unk nown) date) <Electronically unknown) signed by aLura Parikh D.O.> (unknown) (no (unknown) (unknown) Signed (units (unkno wn) date) unknown) (unknown) (no (unknown) (unknown) Sister (units (unknown) date) Diabetes mellitus unknown) (unknown) (no (unknown) (unknown) Smoking Status: (units (unknown) date) Former smoker unknown) (unknown) (no (unknown) (unknown) Status post (units (un known) date) colonoscopy unknown) (09/2019) (unknown) (no (unknown) (unknown) Status post (units (un known) date) endoscopy (12/2019) unknown) (unknown) (no (unknown) (unknown) Status post (units (un known) date) reduction unknown) mammoplasty (07/2010) (unknown) (no (unknown) (unknown) Status: Acute (units ( unknown) date) unknown) (unknown) (no (unknown) (unknown) Status: Chronic (units (unknown) date) unknown) (unknown) (no (unknown) (unknown) Still having (units (u nknown) date) exacerbated unknown) autonomic instability. (unknown) (no (unknown) (unknown) Stroke (units (unkno wn) date) unknown) (unknown) (no (unknown) (unknown) Substance abuse (units (unknown) date) unknown) (unknown) (no (unknown) (unknown) Surgical History (units (unknown) date) (Updated 01/18/20 @ unknown) 15:38 by Summer Price DO) (unknown) (no (unknown) (unknown) This note may have (units (unknown) date) been all or unknown) partially generated using voice recognition (unknown) (no (unknown) (unknown) Thoracic region (units (unknown) date) somatic dysfunction unknown) (unknown) (no (unknown) (unknown) Thoracic: T5-9 (units (unknown) date) paraspinal htn, T7 unknown) FRSR (unknown) (no (unknown) (unknown) Time Coding (units (un known) date) Minutes Spent: unknown) (must be on same date of service/appointment ) (unknown) (no (unknown) (unknown) Time Spent (units (unk nown) date) unknown) (unknown) (no (unknown) (unknown) Tinnitus (units (unkno wn) date) unknown) (unknown) (no (unknown) (unknown) Tobacco + (units (unkn own) date) Substance Use unknown) (unknown) (no (unknown) (unknown) Tobacco Status (units (unknown) date) unknown) (unknown) (no (unknown) (unknown) Total visit time (units (unknown) date) apart from OMT 31 unknown) minutes today, including 20 minutes face to (unknown) (no (unknown) (unknown) Tubular adenoma of (units (unknown) date) colon (12/2014) unknown) (unknown) (no (unknown) (unknown) Upper extremities: (units (unknown) date) unknown) (unknown) (no (unknown) (unknown) VIS Given Date VIS (units (unknown) date) Provided VIS unknown) Publication Date (unknown) (no (unknown) (unknown) Visit Reasons: OMT (units (unknown) date) #1/covid booster unknown) (unknown) (no (unknown) (unknown) Vitals (units (unkno wn) date) unknown) (unknown) (no (unknown) (unknown) Albert's (units (unkn own) date) unknown) (unknown) (no (unknown) (unknown) [Rx Confirmed (units ( unknown) date) 11/24/22] unknown) (unknown) (no (unknown) (unknown) acetaminophen 300 (units (unknown) date) mg-codeine 30 mg unknown) tablet 1 tab PO Q6H PRN pain #5 tabs 11/17/22 (unknown) (no (unknown) (unknown) acute distress, (units (unknown) date) has crutch for unknown) ambulation (unknown) (no (unknown) (unknown) albuterol (units (unkn own) date) [ALBUTEROL] Allergy unknown) (Unknown, Verified 11/24/22 11:27) (unknown) (no (unknown) (unknown) ankle pain (units (unk nown) date) unknown) (unknown) (no (unknown) (unknown) bladder pain (units (u nknown) date) unknown) (unknown) (no (unknown) (unknown) cholecalciferol (units (unknown) date) (vitamin D3) 250 unknown) mcg (10,000 unit) tablet 10,000 tab PO QDAY ##0 (unknown) (no (unknown) (unknown) clonazepam 1 mg (units (unknown) date) tablet 0.5 mg PO unknown) BID PRN anxiety #10 tabs 02/19/22 [Rx Confirmed (unknown) (no (unknown) (unknown) congestion and (units (unknown) date) stomach problems unknown) (unknown) (no (unknown) (unknown) coordinating care. (units (unknown) date) unknown) (unknown) (no (unknown) (unknown) cyanocobalamin (units (unknown) date) (vitamin B-12) unknown) 1,000 mcg/mL injection solution 1,000 mcg IM (unknown) (no (unknown) (unknown) dexamethasone (units ( unknown) date) Adverse Reaction unknown) (Severe, Verified 11/24/22 11:27) (unknown) (no (unknown) (unknown) did comprehensive (units (unknown) date) stool analysis unknown) through [facility] too (unknown) (no (unknown) (unknown) did have SIBO (units ( unknown) date) breath through unknown) [facility] but unable to get results because was Dr (unknown) (no (unknown) (unknown) face on history, (units (unknown) date) exam, and unknown) counseling, and 11 minutes reviewing, charting, and (unknown) (no (unknown) (unknown) folic acid 5 mg PO (units (unknown) date) 04/08/22 [History unknown) Confirmed 11/24/22] (unknown) (no (unknown) (unknown) folic acid (units (unk nown) date) unknown) (unknown) (no (unknown) (unknown) gastritis flares (units (unknown) date) unknown) (unknown) (no (unknown) (unknown) gentle iron PO (units (unknown) date) 12/09/21 [History unknown) Confirmed 11/24/22] (unknown) (no (unknown) (unknown) gluten [GLUTEN] (units (unknown) date) Allergy (Unknown, unknown) Verified 11/24/22 11:27) (unknown) (no (unknown) (unknown) gluten free vegan (units (unknown) date) unknown) (unknown) (no (unknown) (unknown) grass pollen (units (u nknown) date) Allergy (Severe, unknown) Verified 11/24/22 11:27) (unknown) (no (unknown) (unknown) have occurred. If (units (unknown) date) there are any unknown) questions, please contact the Medical Records (unknown) (no (unknown) (unknown) hoping to get a (units (unknown) date) formulation without unknown) additive (unknown) (no (unknown) (unknown) hydromorphone (units ( unknown) date) [HYDROMORPHONE] unknown) Allergy (Mild, Verified 11/24/22 11:27) (unknown) (no (unknown) (unknown) hydroxocobalamin (units (unknown) date) 1,000 mcg/mL unknown) intramuscular solution 500 mcg (0.5 mL) IM BID #30 (unknown) (no (unknown) (unknown) insulin (units (unkno wn) date) syringe-needle unknown) U-100 1 mL 30 gauge x 1/2' (BD Insulin Syringe Ultra (unknown) (no (unknown) (unknown) iodine and (units (unk nown) date) selenium for unknown) thyroid, rather than taking thyroid (unknown) (no (unknown) (unknown) joints of left (units (unknown) date) foot; G89.29 - unknown) Other chronic pain (unknown) (no (unknown) (unknown) k2 with vit D PO (units (unknown) date) 12/09/21 [History unknown) Confirmed 11/24/22] (unknown) (no (unknown) (unknown) lithium [LITHIUM] (units (unknown) date) Allergy (Unknown, unknown) Verified 11/24/22 11:27) (unknown) (no (unknown) (unknown) loratadine 10 mg (units (unknown) date) tablet (Claritin) unknown) 10 mg PO DAILY PRN allergic symptoms #90 tabs (unknown) (no (unknown) (unknown) mL 08/04/22 [Rx (units (unknown) date) Confirmed 11/24/22] unknown) (unknown) (no (unknown) (unknown) magnesium (units (unkn own) date) unknown) (unknown) (no (unknown) (unknown) may occur. (units (unk nown) date) Occasional unknown) wrong-word or 'sound-alike' substitutions may have (unknown) (no (unknown) (unknown) modifications. (units (unknown) date) unknown) (unknown) (no (unknown) (unknown) occurred due to (units (unknown) date) the inherent unknown) limitations of voice recognition software. Please (unknown) (no (unknown) (unknown) ondansetron HCl 4 (units (unknown) date) mg tablet (Zofran) unknown) 4 mg PO Q4HP PRN #20 tabs 11/25/17 [Rx (unknown) (no (unknown) (unknown) polyneuropathies (units (unknown) date) unknown) (unknown) (no (unknown) (unknown) read the note (units ( unknown) date) carefully and unknown) recognize, using context, where these substitutions (unknown) (no (unknown) (unknown) software. 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 (unknown) (no (unknown) (unknown) tachycardia (units (un known) date) unknown) (unknown) (no (unknown) (unknown) takes: (units (unkno wn) date) unknown) (unknown) (no (unknown) (unknown) tizanidine 4 mg (units (unknown) date) tablet 4 mg PO Q8H unknown) PRN muscle spasticity #20 tabs 02/05/22 [Rx (unknown) (no (unknown) (unknown) vitamin C / iron (units (unknown) date) 125mg plant based unknown) (unknown) (no (unknown) (unknown) vitamin D / K2 (units (unknown) date) 10273/100 unknown) (unknown) (no (unknown) (unknown) vitamin c 1000 mg (units (unknown) date) PO 12/09/21 unknown) [History Confirmed 11/24/22] (unknown) (no (unknown) (unknown) wants refills on (units (unknown) date) B12 and needles unknown) Social History date description facility 2022-11-11 00:00 Ex-smoker (finding) [facility] 2022-11-17 00:00 Ex-smoker (finding) [facility] 2022-11-24 00:00 Ex-smoker (finding) [facility] Vital Signs date measurement value units 2022-11-17 00:00 BMI 28.3 kg/m2 2022-11-17 00:00 BP_diastolic 88 mmHg 2022-11-17 00:00 BP_systolic 156 mmHg 2022-11-17 00:00 heart_rate 89 /min 2022-11-17 00:00 height_metric 161.29 cm 2022-11-17 00:00 height_standard 63.5 in 2022-11-17 00:00 o2_saturation 97 % 2022-11-17 00:00 temperature_metric 36.17 C 2022-11-17 00:00 temperature_standard 97.1 F 2022-11-17 00:00 weight_metric 73.65 kg 2022-11-17 00:00 weight_standard 162.37 lb 2022-11-24 00:00 BP_diastolic 84 mmHg 2022-11-24 00:00 BP_systolic 140 mmHg 2022-11-24 00:00 heart_rate 112 /min 2022-11-24 00:00 height_metric 161.29 cm 2022-11-24 00:00 height_standard 63.5 in 2022-11-24 00:00 o2_saturation 97 %
--- NOTE | 2023-01-01 12:39 | XRAY Report ---
PROCEDURE: Shoulder 3 View LT INDICATIONS: Fall from ladder with shoulder and leg injuries TECHNIQUE: 3 views of the shoulder were acquired. COMPARISON: None. FINDINGS: Bones: No fractures or dislocations. No suspicious bony lesions. Visualized ribs appear intact. Soft tissues: No suspicious soft tissue calcifications. IMPRESSION: Unremarkable left shoulder radiographs Reviewed by: Jude Meneses MD on 01/01/2023 11:38 AM [facility] Approved by: Jude Meneses MD on 01/01/2023 11:38 AM [facility] Station ID: [id number]
[2023-01-01] MEDS ORDERED: diphenhydrAMINE INJ 50 MG/ML VIAL IM STA (12:53)
[2023-01-01] MEDS ORDERED: HYDROmorphone 1 MG/ML CARPUJECT IM STA (12:54)
--- NOTE | 2023-01-01 14:17 | CT Report ---
PROCEDURE: LOWER EXTREMITY WO - RT INDICATIONS: foot injury - poss calcaneal frx on xr TECHNIQUE: Noncontrast 3-mm axial sections acquired from the distal tibial shaft to the talar dome, with coronal and sagittal reformats. For radiation dose reduction, the following was used: automated exposure c ontrol, adjustment of mA and/or kV according to patient size. COMPARISON: Same-day radiographs FINDINGS: Image quality: Good Bones: Nondisplaced, impacted fracture of the proximal calcaneus. Subtalar joint remains congruent. Diffuse mottled appearance of the bones. Soft tissues: Soft tissue swelling is present. Impression: Impacted calcaneal fracture. Diffuse mottled appearance of the bones, possibly osteopenia/demineralization, with differential incl uding underlying metabolic disorder or malignancy. Correlate with clinical history. Reviewed by: Cesar Garcia MD on 01/01/2023 2:16 PM PST Approved by: Cesar Garcia MD on 01/01/2023 2:16 PM PST Station ID: [id number]
[2023-01-01 14:34] VITALS: BP 143/54
== END 2023-01-01 15:00 | disposition home or self-care (01) ==
LOC: ED 11:15
DX: S92.011A Displaced fracture of body of right calcaneus, initial encounter for closed fracture (principal); S70.01XA Contusion of right hip, initial encounter; S40.011A Contusion of right shoulder, initial encounter; W11.XXXA Fall on and from ladder, initial encounter
CPT/HCPCS: 29515; 73030; 73502; 73610; 73630; 73700; 96372; 99284; J1170; J1200

== ENCOUNTER 2023-03-03 15:54 | Outpatient (CLI) | payer MEDICARE, MEDICAID | END 2023-03-03 23:59 | disposition EMS.NT | LOC: EMS 15:54 | DX: Z03.89 Encounter for observation for other suspected diseases and conditions ruled out (principal) ==

== ENCOUNTER 2023-03-25 14:03 | Emergency (ER) | payer MEDICARE, MEDICAID ==
--- OUTSIDE RECORDS SUMMARY | 2023-03-25 14:40 | EXTERNAL MEDICAL SUMMARY RPT | Continuity of Care Document ---
Author Name Unknown Address [address] [place] [address] Phone Organization [facility] Address [address] [place] [address] Phone Care Team Providers Care Director Personal Name Role Phone Gaston Ismael Unavailable Unavailable Summer Price Unavailable Unavailable Allergies and Intolerances date description facility type (no date) [facility] (unknown) Medications date description facility 2023-01-26 00:00 [facility] 2023-01-26 00:00 [facility] 2023-01-05 00:00 [facility] 2023-01-05 00:00 [facility] Problems date description facility 2023-01-26 00:00 Pathological fractur e of right foot, initial encounter [facility] 2023-02-09 00:00 Pathological fracture of right foot, [facility] 2023-02-09 00:00 Pathological fracture of right foot, [facility] 2023-03-03 00:00 Paronychia of great toe of [facility] Results/Labs test date author facility value unit interpretation Result panel 1 (unknown) (no date) (unknown) [facility] (no value) (units unknown) (unknown) Result panel 2 (unknown) (no date) (unknown) [facility] (no value) (units unknown) (unknown) Result panel 3 (unknown) (no date) (unknown) [facility] (no value) (units unknown) (unknown) Result panel 4 (unknown) (no date) (unknown) [facility] (no value) (units unknown) (unknown) Result panel 5 (unknown) (no date) (unknown) [facility] (no value) (units unknown) (unknown) Result panel 6 (unknown) (no date) (unknown) [facility] (no value) (units unknown) (unknown) Result panel 7 (unknown) (no date) (unknown) [facility] (no value) (units unknown) (unknown) Result panel 8 (unknown) (no date) (unknown) [facility] (no value) (units unknown) (unknown) Result panel 9 (unknown) (no date) (unknown) [facility] (no value) (units unknown) (unknown) Result panel 10 (unknown) (no date) (unknown) [facility] (no value) (units unknown) (unknown) Result panel 11 (unknown) (no date) (unknown) [facility] (no value) (units unknown) (unknown) Result panel 12 (unknown) (no date) (unknown) [facility] (no value) (units unknown) (unknown) Result panel 13 (unknown) (no date) (unknown) [facility] (no value) (units unknown) (unknown) Result panel 14 (unknown) (no date) (unknown) [facility] (no value) (units unknown) (unknown) Result panel 15 (unknown) (no date) (unknown) [facility] (no value) (units unknown) (unknown) Result panel 16 (unknown) (no date) (unknown) [facility] (no value) (units unknown) (unknown) Result panel 17 (unknown) (no date) (unknown) [facility] (no value) (units unknown) (unknown) Result panel 18 (unknown) (no date) (unknown) [facility] (no value) (units unknown) (unknown) Result panel 19 (unknown) (no date) (unknown) [facility] (no value) (units unknown) (unknown) Result panel 20 (unknown) (no date) (unknown) [facility] (no value) (units unknown) (unknown) Result panel 21 (unknown) (no date) (unknown) [facility] (no value) (units unknown) (unknown) Result panel 22 (unknown) (no date) (unknown) [facility] (no value) (units unknown) (unknown) Result panel 23 (unknown) (no date) (unknown) [facility] (no value) (units unknown) (unknown) Result panel 24 (unknown) (no date) (unknown) [facility] (no value) (units unknown) (unknown) Result panel 25 (unknown) (no date) (unknown) [facility] (no value) (units unknown) (unknown) Result panel 26 (unknown) (no date) (unknown) [facility] (no value) (units unknown) (unknown) Result panel 27 (unknown) (no date) (unknown) (unknown) (no value) (units unknown) (unknown) (unknown) (no date) (unknown) (unknown) [id number] (units unknown) (unknown) (unknown) (no date) (unknown) (unknown) 01/26/23 (units unknown) (unknown) (unknown) (no date) (unknown) (unknown) 10:59 (units unknown) (unknown) (unknown) (no date) (unknown) (unknown) Acute pain of left shoulder (units unknown) (unknown) (unknown) (no date) (unknown) (unknown) Age/Sex: 67 / F Date of Service: (units unknown) (unknown) (unknown) (no date) (unknown) (unknown) Allergic react ion to grass pollen (units unknown) (unknown) (unknown) (no date) (unknown) (unknown) Allergic to cats (un its unknown) (unknown) (unknown) (no date) (unknown) (unknown) Allergies (units unknown) (unknown) (unknown) (no date) (unknown) (unknown) [place] [address] (units unknown) (unknown) (unknown) (no date) (unknown) (unknown) Anesthesia (units unknown) (unknown) (unknown) (no date) (unknown) (unknown) Angina pectoris (uni ts unknown) (unknown) (unknown) (no date) (unknown) (unknown) Ankle pain, ch ronic (2014) (units unknown) (unknown) (unknown) (no date) (unknown) (unknown) Ankle pain, chronic (units unknown) (unknown) (unknown) (no date) (unknown) (unknown) Anxiety (units unknown) (unknown) (unknown) (no date) (unknown) (unknown) Assessment + Plan (u nits unknown) (unknown) (unknown) (no date) (unknown) (unknown) Attending Dr: Laura Parikh D.O. (units unknown) (unknown) (unknown) (no date) (unknown) (unknown) Bipolar disorder (un its unknown) (unknown) (unknown) (no date) (unknown) (unknown) Brain cancer (units unknown) (unknown) (unknown) (no date) (unknown) (unknown) Cervical somat ic dysfunction (units unknown) (unknown) (unknown) (no date) (unknown) (unknown) Chicken pox (units unknown) (unknown) (unknown) (no date) (unknown) (unknown) Child Age: 34 Hx of appendectomy (units unknown) (unknown) (unknown) (no date) (unknown) (unknown) Child Age: 37 Penicillin allergy (units unknown) (unknown) (unknown) (no date) (unknown) (unknown) Child Age: 46 Hay fever (units unknown) (unknown) (unknown) (no date) (unknown) (unknown) 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 (units unknown) (unknown) (unknown) (no date) (unknown) (unknown) Chronic left-s ided thoracic back pain (units unknown) (unknown) (unknown) (no date) (unknown) (unknown) 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 () (units unknown) (unknown) (unknown) (no date) (unknown) (unknown) Compression fr acture of body of thoracic vertebra () (units unknown) (unknown) (unknown) (no date) (unknown) (unknown) Cranial somati c dysfunction (units unknown) (unknown) (unknown) (no date) (unknown) (unknown) DAIRY Allergy (Intermediate, Uncoded 11/24/22 11:27) (units unknown) (unknown) (unknown) (no date) (unknown) (unknown) : 4 Acct:[id number] (units unknown) (unknown) (unknown) (no date) (unknown) (unknown) Depression (09/21/14) (units unknown) (unknown) (unknown) (no date) (unknown) (unknown) Depression (units unknown) (unknown) (unknown) (no date) (unknown) (unknown) Dept at . (units unknown) (unknown) (unknown) (no date) (unknown) (unknown) Documented By: Laura Parikh D.O. 01/26/23 1059 (units unknown) (unknown) (unknown) (no date) (unknown) (unknown) Draft (units unknown) (unknown) (unknown) (no date) (unknown) (unknown) Environmental allergies (units unknown) (unknown) (unknown) (no date) (unknown) (unknown) Esophageal stricture (units unknown) (unknown) (unknown) (no date) (unknown) (unknown) Esophagitis (units unknown) (unknown) (unknown) (no date) (unknown) (unknown) Family History (Updated 06/08/18 @ 12:37 by Rabia Jacob) (units unknown) (unknown) (unknown) (no date) (unknown) (unknown) Family Practic e Office Visit (units unknown) (unknown) (unknown) (no date) (unknown) (unknown) Fibromyalgia (units unknown) (unknown) (unknown) (no date) (unknown) (unknown) [facility] (units unknown) (unknown) (unknown) (no date) (unknown) (unknown) Foot pain (2011) (un its unknown) (unknown) (unknown) (no date) (unknown) (unknown) Gastropathy (units unknown) (unknown) (unknown) (no date) (unknown) (unknown) Grandmother Di abetes mellitus (units unknown) (unknown) (unknown) (no date) (unknown) (unknown) Hayfever (units unknown) (unknown) (unknown) (no date) (unknown) (unknown) Heart disease (units unknown) (unknown) (unknown) (no date) (unknown) (unknown) Height 5 ft 3.5 in ( units unknown) (unknown) (unknown) (no date) (unknown) (unknown) Hemorrhoids (units unknown) (unknown) (unknown) (no date) (unknown) (unknown) Hiatal hernia (units unknown) (unknown) (unknown) (no date) (unknown) (unknown) High cholesterol (un its unknown) (unknown) (unknown) (no date) (unknown) (unknown) History of candice betes mellitus (units unknown) (unknown) (unknown) (no date) (unknown) (unknown) History of fundoplication (units unknown) (unknown) (unknown) (no date) (unknown) (unknown) History of rep air of hiatal hernia (11/2011) (units unknown) (unknown) (unknown) (no date) (unknown) (unknown) History of tonsillectomy (1971) (units unknown) (unknown) (unknown) (no date) (unknown) (unknown) Hives (units unknown) (unknown) (unknown) (no date) (unknown) (unknown) Hypertension (units unknown) (unknown) (unknown) (no date) (unknown) (unknown) Hypothyroidism (unit s unknown) (unknown) (unknown) (no date) (unknown) (unknown) IBS (irritable bowel syndrome) (units unknown) (unknown) (unknown) (no date) (unknown) (unknown) 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 unknown) (unknown) (unknown) (no date) (unknown) (unknown) Intake (units unknown) (unknown) (unknown) (no date) (unknown) (unknown) Last Menstural Cycle + Details (units unknown) (unknown) (unknown) (no date) (unknown) (unknown) Liver cancer (units unknown) (unknown) (unknown) (no date) (unknown) (unknown) Loc: [facility] (units unknown) (unknown) (unknown) (no date) (unknown) (unknown) Lumbar facet arthropathy (2013) (units unknown) (unknown) (unknown) (no date) (unknown) (unknown) Lumbar region somatic dysfunction (units unknown) (unknown) (unknown) (no date) (unknown) (unknown) Lung cancer (units unknown) (unknown) (unknown) (no date) (unknown) (unknown) Medical Histor y (Updated 11/24/22 @ 13:48 by Laura Parikh DO) (units unknown) (unknown) (unknown) (no date) (unknown) (unknown) Mother d Diabetes mellitus (units unknown) (unknown) (unknown) (no date) (unknown) (unknown) Obesity (units unknown) (unknown) (unknown) (no date) (unknown) (unknown) Orders (units unknown) (unknown) (unknown) (no date) (unknown) (unknown) Orders: (units unknown) (unknown) (unknown) (no date) (unknown) (unknown) Osteoarthritis (2011) (units unknown) (unknown) (unknown) (no date) (unknown) (unknown) Osteoporosis o f lumbar spine (units unknown) (unknown) (unknown) (no date) (unknown) (unknown) Osteoporosis (units unknown) (unknown) (unknown) (no date) (unknown) (unknown) Other Menstrua l Period: Postmenopausal (units unknown) (unknown) (unknown) (no date) (unknown) (unknown) PFSH (units unknown) (unknown) (unknown) (no date) (unknown) (unknown) POC Urine Dip Today R30.0 - Dysuria (units unknown) (unknown) (unknown) (no date) (unknown) (unknown) PTSD (post-tra umatic stress disorder) (units unknown) (unknown) (unknown) (no date) (unknown) (unknown) Patient: Whitley Oakes MR#: M (units unknown) (unknown) (unknown) (no date) (unknown) (unknown) Pelvic somatic dysfunction (units unknown) (unknown) (unknown) (no date) (unknown) (unknown) Pernicious anemia (u nits unknown) (unknown) (unknown) (no date) (unknown) (unknown) Personality disorder (units unknown) (unknown) (unknown) (no date) (unknown) (unknown) RLS (restless legs syndrome) (units unknown) (unknown) (unknown) (no date) (unknown) (unknown) Reason For Visit (un its unknown) (unknown) (unknown) (no date) (unknown) (unknown) Right shoulder pain (units unknown) (unknown) (unknown) (no date) (unknown) (unknown) SWELLING (units unknown) (unknown) (unknown) (no date) (unknown) (unknown) Sacral region somatic dysfunction (units unknown) (unknown) (unknown) (no date) (unknown) (unknown) Sacroiliitis (2011) (units unknown) (unknown) (unknown) (no date) (unknown) (unknown) Seborrheic keratosis (units unknown) (unknown) (unknown) (no date) (unknown) (unknown) Signed By: (units unknown) (unknown) (unknown) (no date) (unknown) (unknown) Sister d Diabetes mellitus (units unknown) (unknown) (unknown) (no date) (unknown) (unknown) Smoking Status : Former smoker (units unknown) (unknown) (unknown) (no date) (unknown) (unknown) Status post colonoscopy (09/2019) (units unknown) (unknown) (unknown) (no date) (unknown) (unknown) Status post endoscopy (12/2019) (units unknown) (unknown) (unknown) (no date) (unknown) (unknown) Status post reduction mammoplasty (07/2010) (units unknown) (unknown) (unknown) (no date) (unknown) (unknown) Stroke (units unknown) (unknown) (unknown) (no date) (unknown) (unknown) Substance abuse (uni ts unknown) (unknown) (unknown) (no date) (unknown) (unknown) Surgical Histo ry (Updated 01/18/20 @ 15:38 by Summer Price DO) (units unknown) (unknown) (unknown) (no date) (unknown) (unknown) This note may have been all or partially generated using voice recognition (units unknown) (unknown) (unknown) (no date) (unknown) (unknown) Thoracic regio n somatic dysfunction (units unknown) (unknown) (unknown) (no date) (unknown) (unknown) Tinnitus (units unknown) (unknown) (unknown) (no date) (unknown) (unknown) Tobacco + Subs tance Use (units unknown) (unknown) (unknown) (no date) (unknown) (unknown) Tobacco Status (unit s unknown) (unknown) (unknown) (no date) (unknown) (unknown) Tubular adenom a of colon (12/2014) (units unknown) (unknown) (unknown) (no date) (unknown) (unknown) Visit Reasons: OMT #3 [id number] (units unknown) (unknown) (unknown) (no date) (unknown) (unknown) Vitals (units unknown) (unknown) (unknown) (no date) (unknown) (unknown) albuterol [ALBUTEROL] Allergy (Unknown, Verified 11/24/22 11:27) (units unknown) (unknown) (unknown) (no date) (unknown) (unknown) bladder pain (units unknown) (unknown) (unknown) (no date) (unknown) (unknown) congestion and stomach problems (units unknown) (unknown) (unknown) (no date) (unknown) (unknown) dexamethasone Adverse Reaction (Severe, Verified 11/24/22 11:27) (units unknown) (unknown) (unknown) (no date) (unknown) (unknown) gluten [GLUTEN ] Allergy (Unknown, Verified 11/24/22 11:27) (units unknown) (unknown) (unknown) (no date) (unknown) (unknown) grass pollen A llergy (Severe, Verified 11/24/22 11:27) (units unknown) (unknown) (unknown) (no date) (unknown) (unknown) have occurred. If there are any questions, please contact the Medical Records (units unknown) (unknown) (unknown) (no date) (unknown) (unknown) hydromorphone [HYDROMORPHONE] Allergy (Mild, Verified 11/24/22 11:27) (units unknown) (unknown) (unknown) (no date) (unknown) (unknown) lithium [LITHI UM] Allergy (Unknown, Verified 11/24/22 11:27) (units unknown) (unknown) (unknown) (no date) (unknown) (unknown) may occur. Occasional wrong-word or 'sound-alike' substitutions may have (units unknown) (unknown) (unknown) (no date) (unknown) (unknown) occurred due t o the inherent limitations of voice recognition software. Please (units unknown) (unknown) (unknown) (no date) (unknown) (unknown) read the note carefully and recognize, using context, where these substitutions (units unknown) (unknown) (unknown) (no date) (unknown) (unknown) software. Alth ough every effort is made to edit content, hand cell tuber errors (units unknown) (unknown) (unknown) (no date) (unknown) (unknown) tachycardia (units unknown) (unknown) Result panel 28 (unknown) (no date) (unknown) (unknown) (no value) (units unknown) (unknown) (unknown) (no date) (unknown) (unknown) [id number] (units unknown) (unknown) (unknown) (no date) (unknown) (unknown) 01/26/23 (units unknown) (unknown) (unknown) (no date) (unknown) (unknown) 10:59 (units unknown) (unknown) (unknown) (no date) (unknown) (unknown) Acute pain of left shoulder (units unknown) (unknown) (unknown) (no date) (unknown) (unknown) Age/Sex: 67 / F Date of Service: (units unknown) (unknown) (unknown) (no date) (unknown) (unknown) Allergic react ion to grass pollen (units unknown) (unknown) (unknown) (no date) (unknown) (unknown) Allergic to cats (un its unknown) (unknown) (unknown) (no date) (unknown) (unknown) Allergies (units unknown) (unknown) (unknown) (no date) (unknown) (unknown) [place] [address] (units unknown) (unknown) (unknown) (no date) (unknown) (unknown) Anesthesia (units unknown) (unknown) (unknown) (no date) (unknown) (unknown) Angina pectoris (uni ts unknown) (unknown) (unknown) (no date) (unknown) (unknown) Ankle pain, ch ronic (2014) (units unknown) (unknown) (unknown) (no date) (unknown) (unknown) Ankle pain, chronic (units unknown) (unknown) (unknown) (no date) (unknown) (unknown) Anxiety (units unknown) (unknown) (unknown) (no date) (unknown) (unknown) Assessment + Plan (u nits unknown) (unknown) (unknown) (no date) (unknown) (unknown) Attending Dr: Laura Parikh D.OElliott (units unknown) (unknown) (unknown) (no date) (unknown) (unknown) BP 170/88 H (units unknown) (unknown) (unknown) (no date) (unknown) (unknown) Bipolar disorder (un its unknown) (unknown) (unknown) (no date) (unknown) (unknown) Blood Pressure Location Lt brachial (units unknown) (unknown) (unknown) (no date) (unknown) (unknown) Brain cancer (units unknown) (unknown) (unknown) (no date) (unknown) (unknown) Cervical somat ic dysfunction (units unknown) (unknown) (unknown) (no date) (unknown) (unknown) Chicken pox (units unknown) (unknown) (unknown) (no date) (unknown) (unknown) Child Age: 34 Hx of appendectomy (units unknown) (unknown) (unknown) (no date) (unknown) (unknown) Child Age: 37 Penicillin allergy (units unknown) (unknown) (unknown) (no date) (unknown) (unknown) Child Age: 46 Hay fever (units unknown) (unknown) (unknown) (no date) (unknown) (unknown) 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 (units unknown) (unknown) (unknown) (no date) (unknown) (unknown) Chronic left-s ided thoracic back pain (units unknown) (unknown) (unknown) (no date) (unknown) (unknown) Compound heterozygous MTHFR mutation [id number] (-12/2016) (units unknown) (unknown) (unknown) (no date) (unknown) (unknown) Compression fr acture of body of thoracic vertebra () (units unknown) (unknown) (unknown) (no date) (unknown) (unknown) Cranial somati c dysfunction (units unknown) (unknown) (unknown) (no date) (unknown) (unknown) DAIRY Allergy (Intermediate, Uncoded 11/24/22 11:27) (units unknown) (unknown) (unknown) (no date) (unknown) (unknown) : 4 Acct:[id number] (units unknown) (unknown) (unknown) (no date) (unknown) (unknown) Depression (09/21/14) (units unknown) (unknown) (unknown) (no date) (unknown) (unknown) Depression (units unknown) (unknown) (unknown) (no date) (unknown) (unknown) Dept at . (units unknown) (unknown) (unknown) (no date) (unknown) (unknown) Documented By: Laura Parikh D.O. 01/26/23 1059 (units unknown) (unknown) (unknown) (no date) (unknown) (unknown) Draft (units unknown) (unknown) (unknown) (no date) (unknown) (unknown) Environmental allergies (units unknown) (unknown) (unknown) (no date) (unknown) (unknown) Esophageal stricture (units unknown) (unknown) (unknown) (no date) (unknown) (unknown) Esophagitis (units unknown) (unknown) (unknown) (no date) (unknown) (unknown) Family History (Updated 06/08/18 @ 12:37 by Rabia Jacob) (units unknown) (unknown) (unknown) (no date) (unknown) (unknown) Family Practic e Office Visit (units unknown) (unknown) (unknown) (no date) (unknown) (unknown) Fibromyalgia (units unknown) (unknown) (unknown) (no date) (unknown) (unknown) [facility] (units unknown) (unknown) (unknown) (no date) (unknown) (unknown) Foot pain (2011) (un its unknown) (unknown) (unknown) (no date) (unknown) (unknown) Gastropathy (units unknown) (unknown) (unknown) (no date) (unknown) (unknown) Grandmother Di abetes mellitus (units unknown) (unknown) (unknown) (no date) (unknown) (unknown) Hayfever (units unknown) (unknown) (unknown) (no date) (unknown) (unknown) Heart disease (units unknown) (unknown) (unknown) (no date) (unknown) (unknown) Height 5 ft 3.5 in ( units unknown) (unknown) (unknown) (no date) (unknown) (unknown) Hemorrhoids (units unknown) (unknown) (unknown) (no date) (unknown) (unknown) Hiatal hernia (units unknown) (unknown) (unknown) (no date) (unknown) (unknown) High cholesterol (un its unknown) (unknown) (unknown) (no date) (unknown) (unknown) History of candice betes mellitus (units unknown) (unknown) (unknown) (no date) (unknown) (unknown) History of fundoplication (units unknown) (unknown) (unknown) (no date) (unknown) (unknown) History of rep air of hiatal hernia (11/2011) (units unknown) (unknown) (unknown) (no date) (unknown) (unknown) History of tonsillectomy (1971) (units unknown) (unknown) (unknown) (no date) (unknown) (unknown) Hives (units unknown) (unknown) (unknown) (no date) (unknown) (unknown) Hypertension (units unknown) (unknown) (unknown) (no date) (unknown) (unknown) Hypothyroidism (unit s unknown) (unknown) (unknown) (no date) (unknown) (unknown) IBS (irritable bowel syndrome) (units unknown) (unknown) (unknown) (no date) (unknown) (unknown) 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 unknown) (unknown) (unknown) (no date) (unknown) (unknown) Intake (units unknown) (unknown) (unknown) (no date) (unknown) (unknown) Last Menstural Cycle + Details (units unknown) (unknown) (unknown) (no date) (unknown) (unknown) Liver cancer (units unknown) (unknown) (unknown) (no date) (unknown) (unknown) Loc: [facility] (units unknown) (unknown) (unknown) (no date) (unknown) (unknown) Lumbar facet arthropathy (2013) (units unknown) (unknown) (unknown) (no date) (unknown) (unknown) Lumbar region somatic dysfunction (units unknown) (unknown) (unknown) (no date) (unknown) (unknown) Lung cancer (units unknown) (unknown) (unknown) (no date) (unknown) (unknown) Medical Histor y (Updated 11/24/22 @ 13:48 by Laura Parikh DO) (units unknown) (unknown) (unknown) (no date) (unknown) (unknown) Mother d Diabetes mellitus (units unknown) (unknown) (unknown) (no date) (unknown) (unknown) Obesity (units unknown) (unknown) (unknown) (no date) (unknown) (unknown) Orders (units unknown) (unknown) (unknown) (no date) (unknown) (unknown) Orders: (units unknown) (unknown) (unknown) (no date) (unknown) (unknown) Osteoarthritis (2011) (units unknown) (unknown) (unknown) (no date) (unknown) (unknown) Osteoporosis o f lumbar spine (units unknown) (unknown) (unknown) (no date) (unknown) (unknown) Osteoporosis (units unknown) (unknown) (unknown) (no date) (unknown) (unknown) Other Menstrua l Period: Postmenopausal (units unknown) (unknown) (unknown) (no date) (unknown) (unknown) Oxygen Deliver y Method room air (units unknown) (unknown) (unknown) (no date) (unknown) (unknown) PFSH (units unknown) (unknown) (unknown) (no date) (unknown) (unknown) POC Urine Dip Today R30.0 - Dysuria (units unknown) (unknown) (unknown) (no date) (unknown) (unknown) PTSD (post-tra umatic stress disorder) (units unknown) (unknown) (unknown) (no date) (unknown) (unknown) Patient: VioletteWhitley D MR#: M (units unknown) (unknown) (unknown) (no date) (unknown) (unknown) Pelvic somatic dysfunction (units unknown) (unknown) (unknown) (no date) (unknown) (unknown) Pernicious anemia (u nits unknown) (unknown) (unknown) (no date) (unknown) (unknown) Personality disorder (units unknown) (unknown) (unknown) (no date) (unknown) (unknown) Position Sitting (un its unknown) (unknown) (unknown) (no date) (unknown) (unknown) Pulse 111 H (units unknown) (unknown) (unknown) (no date) (unknown) (unknown) Pulse Oximetry (%) 98 (units unknown) (unknown) (unknown) (no date) (unknown) (unknown) Pulse Source Monitor (units unknown) (unknown) (unknown) (no date) (unknown) (unknown) RLS (restless legs syndrome) (units unknown) (unknown) (unknown) (no date) (unknown) (unknown) Reason For Visit (un its unknown) (unknown) (unknown) (no date) (unknown) (unknown) Right shoulder pain (units unknown) (unknown) (unknown) (no date) (unknown) (unknown) SWELLING (units unknown) (unknown) (unknown) (no date) (unknown) (unknown) Sacral region somatic dysfunction (units unknown) (unknown) (unknown) (no date) (unknown) (unknown) Sacroiliitis (2011) (units unknown) (unknown) (unknown) (no date) (unknown) (unknown) Seborrheic keratosis (units unknown) (unknown) (unknown) (no date) (unknown) (unknown) Signed By: (units unknown) (unknown) (unknown) (no date) (unknown) (unknown) Sister d Diabetes mellitus (units unknown) (unknown) (unknown) (no date) (unknown) (unknown) Smoking Status : Former smoker (units unknown) (unknown) (unknown) (no date) (unknown) (unknown) Status post colonoscopy (09/2019) (units unknown) (unknown) (unknown) (no date) (unknown) (unknown) Status post endoscopy (12/2019) (units unknown) (unknown) (unknown) (no date) (unknown) (unknown) Status post reduction mammoplasty (07/2010) (units unknown) (unknown) (unknown) (no date) (unknown) (unknown) Stroke (units unknown) (unknown) (unknown) (no date) (unknown) (unknown) Substance abuse (uni ts unknown) (unknown) (unknown) (no date) (unknown) (unknown) Surgical Histo ry (Updated 01/18/20 @ 15:38 by Summer Price DO) (units unknown) (unknown) (unknown) (no date) (unknown) (unknown) Temp 96.8 F L (units unknown) (unknown) (unknown) (no date) (unknown) (unknown) Temp Source Te mporal Artery Scan (units unknown) (unknown) (unknown) (no date) (unknown) (unknown) This note may have been all or partially generated using voice recognition (units unknown) (unknown) (unknown) (no date) (unknown) (unknown) Thoracic regio n somatic dysfunction (units unknown) (unknown) (unknown) (no date) (unknown) (unknown) Tinnitus (units unknown) (unknown) (unknown) (no date) (unknown) (unknown) Tobacco + Subs tance Use (units unknown) (unknown) (unknown) (no date) (unknown) (unknown) Tobacco Status (unit s unknown) (unknown) (unknown) (no date) (unknown) (unknown) Tubular adenom a of colon (12/2014) (units unknown) (unknown) (unknown) (no date) (unknown) (unknown) Visit Reasons: OMT #3 03 (units unknown) (unknown) (unknown) (no date) (unknown) (unknown) Vitals (units unknown) (unknown) (unknown) (no date) (unknown) (unknown) albuterol [ALBUTEROL] Allergy (Unknown, Verified 11/24/22 11:27) (units unknown) (unknown) (unknown) (no date) (unknown) (unknown) bladder pain (units unknown) (unknown) (unknown) (no date) (unknown) (unknown) congestion and stomach problems (units unknown) (unknown) (unknown) (no date) (unknown) (unknown) dexamethasone Adverse Reaction (Severe, Verified 11/24/22 11:27) (units unknown) (unknown) (unknown) (no date) (unknown) (unknown) gluten [GLUTEN ] Allergy (Unknown, Verified 11/24/22 11:27) (units unknown) (unknown) (unknown) (no date) (unknown) (unknown) grass pollen A llergy (Severe, Verified 11/24/22 11:27) (units unknown) (unknown) (unknown) (no date) (unknown) (unknown) have occurred. If there are any questions, please contact the Medical Records (units unknown) (unknown) (unknown) (no date) (unknown) (unknown) hydromorphone [HYDROMORPHONE] Allergy (Mild, Verified 11/24/22 11:27) (units unknown) (unknown) (unknown) (no date) (unknown) (unknown) lithium [LITHI UM] Allergy (Unknown, Verified 11/24/22 11:27) (units unknown) (unknown) (unknown) (no date) (unknown) (unknown) may occur. Occasional wrong-word or 'sound-alike' substitutions may have (units unknown) (unknown) (unknown) (no date) (unknown) (unknown) occurred due t o the inherent limitations of voice recognition software. Please (units unknown) (unknown) (unknown) (no date) (unknown) (unknown) read the note carefully and recognize, using context, where these substitutions (units unknown) (unknown) (unknown) (no date) (unknown) (unknown) software. Alth ough every effort is made to edit content, hand cell tuber errors (units unknown) (unknown) (unknown) (no date) (unknown) (unknown) tachycardia (units unknown) (unknown) Result panel 29 (unknown) (no date) (unknown) (unknown) (no value) (units unknown) (unknown) (unknown) (no date) (unknown) (unknown) [id number] (units unknown) (unknown) (unknown) (no date) (unknown) (unknown) 01/26/23 (units unknown) (unknown) (unknown) (no date) (unknown) (unknown) 10:59 (units unknown) (unknown) (unknown) (no date) (unknown) (unknown) Acute pain of left shoulder (units unknown) (unknown) (unknown) (no date) (unknown) (unknown) Age/Sex: 67 / F Date of Service: (units unknown) (unknown) (unknown) (no date) (unknown) (unknown) Allergic react ion to grass pollen (units unknown) (unknown) (unknown) (no date) (unknown) (unknown) Allergic to cats (un its unknown) (unknown) (unknown) (no date) (unknown) (unknown) Allergies (units unknown) (unknown) (unknown) (no date) (unknown) (unknown) [place] [id number] (units unknown) (unknown) (unknown) (no date) (unknown) (unknown) Anesthesia (units unknown) (unknown) (unknown) (no date) (unknown) (unknown) Angina pectoris (uni ts unknown) (unknown) (unknown) (no date) (unknown) (unknown) Ankle pain, ch ronic (2014) (units unknown) (unknown) (unknown) (no date) (unknown) (unknown) Ankle pain, chronic (units unknown) (unknown) (unknown) (no date) (unknown) (unknown) Anxiety (units unknown) (unknown) (unknown) (no date) (unknown) (unknown) Assessment + Plan (u nits unknown) (unknown) (unknown) (no date) (unknown) (unknown) Attending Dr: Laura Parikh D.O. (units unknown) (unknown) (unknown) (no date) (unknown) (unknown) BP 170/88 H (units unknown) (unknown) (unknown) (no date) (unknown) (unknown) Bipolar disorder (un its unknown) (unknown) (unknown) (no date) (unknown) (unknown) Blood Pressure Location Lt brachial (units unknown) (unknown) (unknown) (no date) (unknown) (unknown) Brain cancer (units unknown) (unknown) (unknown) (no date) (unknown) (unknown) Cervical somat ic dysfunction (units unknown) (unknown) (unknown) (no date) (unknown) (unknown) Chicken pox (units unknown) (unknown) (unknown) (no date) (unknown) (unknown) Child Age: 34 Hx of appendectomy (units unknown) (unknown) (unknown) (no date) (unknown) (unknown) Child Age: 37 Penicillin allergy (units unknown) (unknown) (unknown) (no date) (unknown) (unknown) Child Age: 46 Hay fever (units unknown) (unknown) (unknown) (no date) (unknown) (unknown) 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 (units unknown) (unknown) (unknown) (no date) (unknown) (unknown) Chronic left-s ided thoracic back pain (units unknown) (unknown) (unknown) (no date) (unknown) (unknown) 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 () (units unknown) (unknown) (unknown) (no date) (unknown) (unknown) Compression fr acture of body of thoracic vertebra () (units unknown) (unknown) (unknown) (no date) (unknown) (unknown) Cranial somati c dysfunction (units unknown) (unknown) (unknown) (no date) (unknown) (unknown) DAIRY Allergy (Intermediate, Uncoded 11/24/22 11:27) (units unknown) (unknown) (unknown) (no date) (unknown) (unknown) : 4 Acct:[id number] (units unknown) (unknown) (unknown) (no date) (unknown) (unknown) Depression (09/21/14) (units unknown) (unknown) (unknown) (no date) (unknown) (unknown) Depression (units unknown) (unknown) (unknown) (no date) (unknown) (unknown) Dept at . (units unknown) (unknown) (unknown) (no date) (unknown) (unknown) Documented By: Laura Parikh D.O. 01/26/23 1059 (units unknown) (unknown) (unknown) (no date) (unknown) (unknown) Draft (units unknown) (unknown) (unknown) (no date) (unknown) (unknown) Environmental allergies (units unknown) (unknown) (unknown) (no date) (unknown) (unknown) Esophageal stricture (units unknown) (unknown) (unknown) (no date) (unknown) (unknown) Esophagitis (units unknown) (unknown) (unknown) (no date) (unknown) (unknown) Family History (Updated 06/08/18 @ 12:37 by Rabia Jacob) (units unknown) (unknown) (unknown) (no date) (unknown) (unknown) Family Practic e Office Visit (units unknown) (unknown) (unknown) (no date) (unknown) (unknown) Fibromyalgia (units unknown) (unknown) (unknown) (no date) (unknown) (unknown) [facility] (units unknown) (unknown) (unknown) (no date) (unknown) (unknown) Foot pain (2011) (un its unknown) (unknown) (unknown) (no date) (unknown) (unknown) Gastropathy (units unknown) (unknown) (unknown) (no date) (unknown) (unknown) Grandmother Di abetes mellitus (units unknown) (unknown) (unknown) (no date) (unknown) (unknown) Hayfever (units unknown) (unknown) (unknown) (no date) (unknown) (unknown) Heart disease (units unknown) (unknown) (unknown) (no date) (unknown) (unknown) Height 5 ft 3.5 in ( units unknown) (unknown) (unknown) (no date) (unknown) (unknown) Hemorrhoids (units unknown) (unknown) (unknown) (no date) (unknown) (unknown) Hiatal hernia (units unknown) (unknown) (unknown) (no date) (unknown) (unknown) High cholesterol (un its unknown) (unknown) (unknown) (no date) (unknown) (unknown) History of candice betes mellitus (units unknown) (unknown) (unknown) (no date) (unknown) (unknown) History of fundoplication (units unknown) (unknown) (unknown) (no date) (unknown) (unknown) History of rep air of hiatal hernia (11/2011) (units unknown) (unknown) (unknown) (no date) (unknown) (unknown) History of tonsillectomy (1971) (units unknown) (unknown) (unknown) (no date) (unknown) (unknown) Hives (units unknown) (unknown) (unknown) (no date) (unknown) (unknown) Hypertension (units unknown) (unknown) (unknown) (no date) (unknown) (unknown) Hypothyroidism (unit s unknown) (unknown) (unknown) (no date) (unknown) (unknown) IBS (irritable bowel syndrome) (units unknown) (unknown) (unknown) (no date) (unknown) (unknown) 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 unknown) (unknown) (unknown) (no date) (unknown) (unknown) Intake (units unknown) (unknown) (unknown) (no date) (unknown) (unknown) Last Menstural Cycle + Details (units unknown) (unknown) (unknown) (no date) (unknown) (unknown) Liver cancer (units unknown) (unknown) (unknown) (no date) (unknown) (unknown) Loc: [facility] (units unknown) (unknown) (unknown) (no date) (unknown) (unknown) Lumbar facet arthropathy (2013) (units unknown) (unknown) (unknown) (no date) (unknown) (unknown) Lumbar region somatic dysfunction (units unknown) (unknown) (unknown) (no date) (unknown) (unknown) Lung cancer (units unknown) (unknown) (unknown) (no date) (unknown) (unknown) Medical Histor y (Updated 11/24/22 @ 13:48 by Laura Parikh DO) (units unknown) (unknown) (unknown) (no date) (unknown) (unknown) Mother d Diabetes mellitus (units unknown) (unknown) (unknown) (no date) (unknown) (unknown) Obesity (units unknown) (unknown) (unknown) (no date) (unknown) (unknown) Orders (units unknown) (unknown) (unknown) (no date) (unknown) (unknown) Orders: (units unknown) (unknown) (unknown) (no date) (unknown) (unknown) Osteoarthritis (2011) (units unknown) (unknown) (unknown) (no date) (unknown) (unknown) Osteoporosis o f lumbar spine (units unknown) (unknown) (unknown) (no date) (unknown) (unknown) Osteoporosis (units unknown) (unknown) (unknown) (no date) (unknown) (unknown) Other Menstrua l Period: Postmenopausal (units unknown) (unknown) (unknown) (no date) (unknown) (unknown) Oxygen Deliver y Method room air (units unknown) (unknown) (unknown) (no date) (unknown) (unknown) PFSH (units unknown) (unknown) (unknown) (no date) (unknown) (unknown) POC Urine Dip Today R30.0 - Dysuria (units unknown) (unknown) (unknown) (no date) (unknown) (unknown) PTSD (post-tra umatic stress disorder) (units unknown) (unknown) (unknown) (no date) (unknown) (unknown) Patient: Whitley Oakes MR#: M (units unknown) (unknown) (unknown) (no date) (unknown) (unknown) Pelvic somatic dysfunction (units unknown) (unknown) (unknown) (no date) (unknown) (unknown) Pernicious anemia (u nits unknown) (unknown) (unknown) (no date) (unknown) (unknown) Personality disorder (units unknown) (unknown) (unknown) (no date) (unknown) (unknown) Position Sitting (un its unknown) (unknown) (unknown) (no date) (unknown) (unknown) Pulse 111 H (units unknown) (unknown) (unknown) (no date) (unknown) (unknown) Pulse Oximetry (%) 98 (units unknown) (unknown) (unknown) (no date) (unknown) (unknown) Pulse Source Monitor (units unknown) (unknown) (unknown) (no date) (unknown) (unknown) RLS (restless legs syndrome) (units unknown) (unknown) (unknown) (no date) (unknown) (unknown) Reason For Visit (un its unknown) (unknown) (unknown) (no date) (unknown) (unknown) Right shoulder pain (units unknown) (unknown) (unknown) (no date) (unknown) (unknown) SWELLING (units unknown) (unknown) (unknown) (no date) (unknown) (unknown) Sacral region somatic dysfunction (units unknown) (unknown) (unknown) (no date) (unknown) (unknown) Sacroiliitis (2012) (units unknown) (unknown) (unknown) (no date) (unknown) (unknown) Seborrheic keratosis (units unknown) (unknown) (unknown) (no date) (unknown) (unknown) Signed By: (units unknown) (unknown) (unknown) (no date) (unknown) (unknown) Sister d Diabetes mellitus (units unknown) (unknown) (unknown) (no date) (unknown) (unknown) Smoking Status : Former smoker (units unknown) (unknown) (unknown) (no date) (unknown) (unknown) Status post colonoscopy (09/2019) (units unknown) (unknown) (unknown) (no date) (unknown) (unknown) Status post endoscopy (12/2019) (units unknown) (unknown) (unknown) (no date) (unknown) (unknown) Status post reduction mammoplasty (07/2010) (units unknown) (unknown) (unknown) (no date) (unknown) (unknown) Stroke (units unknown) (unknown) (unknown) (no date) (unknown) (unknown) Substance abuse (uni ts unknown) (unknown) (unknown) (no date) (unknown) (unknown) Surgical Histo ry (Updated 01/18/20 @ 15:38 by Summer Price DO) (units unknown) (unknown) (unknown) (no date) (unknown) (unknown) Temp 96.8 F L (units unknown) (unknown) (unknown) (no date) (unknown) (unknown) Temp Source Te mporal Artery Scan (units unknown) (unknown) (unknown) (no date) (unknown) (unknown) This note may have been all or partially generated using voice recognition (units unknown) (unknown) (unknown) (no date) (unknown) (unknown) Thoracic regio n somatic dysfunction (units unknown) (unknown) (unknown) (no date) (unknown) (unknown) Tinnitus (units unknown) (unknown) (unknown) (no date) (unknown) (unknown) Tobacco + Subs tance Use (units unknown) (unknown) (unknown) (no date) (unknown) (unknown) Tobacco Status (unit s unknown) (unknown) (unknown) (no date) (unknown) (unknown) Tubular adenom a of colon (12/2014) (units unknown) (unknown) (unknown) (no date) (unknown) (unknown) Visit Reasons: OMT #3 03 (units unknown) (unknown) (unknown) (no date) (unknown) (unknown) Vitals (units unknown) (unknown) (unknown) (no date) (unknown) (unknown) albuterol [ALBUTEROL] Allergy (Unknown, Verified 11/24/22 11:27) (units unknown) (unknown) (unknown) (no date) (unknown) (unknown) bladder pain (units unknown) (unknown) (unknown) (no date) (unknown) (unknown) congestion and stomach problems (units unknown) (unknown) (unknown) (no date) (unknown) (unknown) dexamethasone Adverse Reaction (Severe, Verified 11/24/22 11:27) (units unknown) (unknown) (unknown) (no date) (unknown) (unknown) gluten [GLUTEN ] Allergy (Unknown, Verified 11/24/22 11:27) (units unknown) (unknown) (unknown) (no date) (unknown) (unknown) grass pollen A llergy (Severe, Verified 11/24/22 11:27) (units unknown) (unknown) (unknown) (no date) (unknown) (unknown) have occurred. If there are any questions, please contact the Medical Records (units unknown) (unknown) (unknown) (no date) (unknown) (unknown) hydromorphone [HYDROMORPHONE] Allergy (Mild, Verified 11/24/22 11:27) (units unknown) (unknown) (unknown) (no date) (unknown) (unknown) lithium [LITHI UM] Allergy (Unknown, Verified 11/24/22 11:27) (units unknown) (unknown) (unknown) (no date) (unknown) (unknown) may occur. Occasional wrong-word or 'sound-alike' substitutions may have (units unknown) (unknown) (unknown) (no date) (unknown) (unknown) occurred due t o the inherent limitations of voice recognition software. Please (units unknown) (unknown) (unknown) (no date) (unknown) (unknown) read the note carefully and recognize, using context, where these substitutions (units unknown) (unknown) (unknown) (no date) (unknown) (unknown) software. Alth ough every effort is made to edit content, hand cell tuber errors (units unknown) (unknown) (unknown) (no date) (unknown) (unknown) tachycardia (units unknown) (unknown) Result panel 30 (unknown) (no date) (unknown) (unknown) (no value) (units unknown) (unknown) (unknown) (no date) (unknown) (unknown) / (units unknown) (unknown) (unknown) (no date) (unknown) (unknown) [id number] (units unknown) (unknown) (unknown) (no date) (unknown) (unknown) 01/26/23 (units unknown) (unknown) (unknown) (no date) (unknown) (unknown) 10:59 (units unknown) (unknown) (unknown) (no date) (unknown) (unknown) 11:15 (units unknown) (unknown) (unknown) (no date) (unknown) (unknown) 23 (units unknown) (unknown) (unknown) (no date) (unknown) (unknown) :15 (units unknown) (unknown) (unknown) (no date) (unknown) (unknown) Acute pain of left shoulder (units unknown) (unknown) (unknown) (no date) (unknown) (unknown) Age/Sex: 67 / F Date of Service: (units unknown) (unknown) (unknown) (no date) (unknown) (unknown) Allergic react ion to grass pollen (units unknown) (unknown) (unknown) (no date) (unknown) (unknown) Allergic to cats (un its unknown) (unknown) (unknown) (no date) (unknown) (unknown) Allergies (units unknown) (unknown) (unknown) (no date) (unknown) (unknown) [place] [id number] (units unknown) (unknown) (unknown) (no date) (unknown) (unknown) Anesthesia (units unknown) (unknown) (unknown) (no date) (unknown) (unknown) Angina pectoris (uni ts unknown) (unknown) (unknown) (no date) (unknown) (unknown) Ankle pain, ch ronic (2014) (units unknown) (unknown) (unknown) (no date) (unknown) (unknown) Ankle pain, chronic (units unknown) (unknown) (unknown) (no date) (unknown) (unknown) Anxiety (units unknown) (unknown) (unknown) (no date) (unknown) (unknown) Assessment + Plan (u nits unknown) (unknown) (unknown) (no date) (unknown) (unknown) Attending Dr: Laura Parikh D.O. (units unknown) (unknown) (unknown) (no date) (unknown) (unknown) BP 170/88 H (units unknown) (unknown) (unknown) (no date) (unknown) (unknown) Bipolar disorder (un its unknown) (unknown) (unknown) (no date) (unknown) (unknown) Blood Pressure Location Lt brachial (units unknown) (unknown) (unknown) (no date) (unknown) (unknown) Brain cancer (units unknown) (unknown) (unknown) (no date) (unknown) (unknown) Cervical somat ic dysfunction (units unknown) (unknown) (unknown) (no date) (unknown) (unknown) Chicken pox (units unknown) (unknown) (unknown) (no date) (unknown) (unknown) Child Age: 34 Hx of appendectomy (units unknown) (unknown) (unknown) (no date) (unknown) (unknown) Child Age: 37 Penicillin allergy (units unknown) (unknown) (unknown) (no date) (unknown) (unknown) Child Age: 46 Hay fever (units unknown) (unknown) (unknown) (no date) (unknown) (unknown) 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 (units unknown) (unknown) (unknown) (no date) (unknown) (unknown) Chronic left-s ided thoracic back pain (units unknown) (unknown) (unknown) (no date) (unknown) (unknown) Compound heterozygous MTHFR mutation [id number] (-12/2016) (units unknown) (unknown) (unknown) (no date) (unknown) (unknown) Compression fr acture of body of thoracic vertebra () (units unknown) (unknown) (unknown) (no date) (unknown) (unknown) Cranial somati c dysfunction (units unknown) (unknown) (unknown) (no date) (unknown) (unknown) DAIRY Allergy (Intermediate, Uncoded 11/24/22 11:27) (units unknown) (unknown) (unknown) (no date) (unknown) (unknown) : 4 Acct:[id number] (units unknown) (unknown) (unknown) (no date) (unknown) (unknown) Depression (09/21/14) (units unknown) (unknown) (unknown) (no date) (unknown) (unknown) Depression (units unknown) (unknown) (unknown) (no date) (unknown) (unknown) Dept at . (units unknown) (unknown) (unknown) (no date) (unknown) (unknown) Documented By: Laura Parikh D.O. 01/26/23 1059 (units unknown) (unknown) (unknown) (no date) (unknown) (unknown) Draft (units unknown) (unknown) (unknown) (no date) (unknown) (unknown) Environmental allergies (units unknown) (unknown) (unknown) (no date) (unknown) (unknown) Esophageal stricture (units unknown) (unknown) (unknown) (no date) (unknown) (unknown) Esophagitis (units unknown) (unknown) (unknown) (no date) (unknown) (unknown) Family History (Updated 06/08/18 @ 12:37 by Rabia Jacob) (units unknown) (unknown) (unknown) (no date) (unknown) (unknown) Family Practic e Office Visit (units unknown) (unknown) (unknown) (no date) (unknown) (unknown) Fibromyalgia (units unknown) (unknown) (unknown) (no date) (unknown) (unknown) [facility] (units unknown) (unknown) (unknown) (no date) (unknown) (unknown) Foot pain (2011) (un its unknown) (unknown) (unknown) (no date) (unknown) (unknown) Gastropathy (units unknown) (unknown) (unknown) (no date) (unknown) (unknown) Grandmother Di abetes mellitus (units unknown) (unknown) (unknown) (no date) (unknown) (unknown) Hayfever (units unknown) (unknown) (unknown) (no date) (unknown) (unknown) Heart disease (units unknown) (unknown) (unknown) (no date) (unknown) (unknown) Height 5 ft 3.5 in ( units unknown) (unknown) (unknown) (no date) (unknown) (unknown) Hemorrhoids (units unknown) (unknown) (unknown) (no date) (unknown) (unknown) Hiatal hernia (units unknown) (unknown) (unknown) (no date) (unknown) (unknown) High cholesterol (un its unknown) (unknown) (unknown) (no date) (unknown) (unknown) History of candice betes mellitus (units unknown) (unknown) (unknown) (no date) (unknown) (unknown) History of fundoplication (units unknown) (unknown) (unknown) (no date) (unknown) (unknown) History of rep air of hiatal hernia (11/2011) (units unknown) (unknown) (unknown) (no date) (unknown) (unknown) History of tonsillectomy (1971) (units unknown) (unknown) (unknown) (no date) (unknown) (unknown) Hives (units unknown) (unknown) (unknown) (no date) (unknown) (unknown) Hypertension (units unknown) (unknown) (unknown) (no date) (unknown) (unknown) Hypothyroidism (unit s unknown) (unknown) (unknown) (no date) (unknown) (unknown) IBS (irritable bowel syndrome) (units unknown) (unknown) (unknown) (no date) (unknown) (unknown) 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 unknown) (unknown) (unknown) (no date) (unknown) (unknown) Intake (units unknown) (unknown) (unknown) (no date) (unknown) (unknown) Last Menstural Cycle + Details (units unknown) (unknown) (unknown) (no date) (unknown) (unknown) Liver cancer (units unknown) (unknown) (unknown) (no date) (unknown) (unknown) Loc: [facility] (units unknown) (unknown) (unknown) (no date) (unknown) (unknown) Lumbar facet arthropathy (2013) (units unknown) (unknown) (unknown) (no date) (unknown) (unknown) Lumbar region somatic dysfunction (units unknown) (unknown) (unknown) (no date) (unknown) (unknown) Lung cancer (units unknown) (unknown) (unknown) (no date) (unknown) (unknown) Medical Histor y (Updated 11/24/22 @ 13:48 by Laura Parikh DO) (units unknown) (unknown) (unknown) (no date) (unknown) (unknown) Mother d Diabetes mellitus (units unknown) (unknown) (unknown) (no date) (unknown) (unknown) Obesity (units unknown) (unknown) (unknown) (no date) (unknown) (unknown) Orders (units unknown) (unknown) (unknown) (no date) (unknown) (unknown) Orders: (units unknown) (unknown) (unknown) (no date) (unknown) (unknown) Osteoarthritis (2011) (units unknown) (unknown) (unknown) (no date) (unknown) (unknown) Osteoporosis o f lumbar spine (units unknown) (unknown) (unknown) (no date) (unknown) (unknown) Osteoporosis (units unknown) (unknown) (unknown) (no date) (unknown) (unknown) Other Menstrua l Period: Postmenopausal (units unknown) (unknown) (unknown) (no date) (unknown) (unknown) Oxygen Deliver y Method room air (units unknown) (unknown) (unknown) (no date) (unknown) (unknown) PFSH (units unknown) (unknown) (unknown) (no date) (unknown) (unknown) POC Urine Dip Today R30.0 - Dysuria (units unknown) (unknown) (unknown) (no date) (unknown) (unknown) PTSD (post-tra umatic stress disorder) (units unknown) (unknown) (unknown) (no date) (unknown) (unknown) Patient: Whitley Oakes MR#: M (units unknown) (unknown) (unknown) (no date) (unknown) (unknown) Pelvic somatic dysfunction (units unknown) (unknown) (unknown) (no date) (unknown) (unknown) Pernicious anemia (u nits unknown) (unknown) (unknown) (no date) (unknown) (unknown) Personality disorder (units unknown) (unknown) (unknown) (no date) (unknown) (unknown) Position Sitting (un its unknown) (unknown) (unknown) (no date) (unknown) (unknown) Pulse 111 H (units unknown) (unknown) (unknown) (no date) (unknown) (unknown) Pulse Oximetry (%) 98 (units unknown) (unknown) (unknown) (no date) (unknown) (unknown) Pulse Source Monitor (units unknown) (unknown) (unknown) (no date) (unknown) (unknown) RLS (restless legs syndrome) (units unknown) (unknown) (unknown) (no date) (unknown) (unknown) Reason For Visit (un its unknown) (unknown) (unknown) (no date) (unknown) (unknown) Results (units unknown) (unknown) (unknown) (no date) (unknown) (unknown) Right shoulder pain (units unknown) (unknown) (unknown) (no date) (unknown) (unknown) SWELLING (units unknown) (unknown) (unknown) (no date) (unknown) (unknown) Sacral region somatic dysfunction (units unknown) (unknown) (unknown) (no date) (unknown) (unknown) Sacroiliitis (2012) (units unknown) (unknown) (unknown) (no date) (unknown) (unknown) Seborrheic keratosis (units unknown) (unknown) (unknown) (no date) (unknown) (unknown) Signed By: (units unknown) (unknown) (unknown) (no date) (unknown) (unknown) Sister d Diabetes mellitus (units unknown) (unknown) (unknown) (no date) (unknown) (unknown) Smoking Status : Former smoker (units unknown) (unknown) (unknown) (no date) (unknown) (unknown) Status post colonoscopy (09/2019) (units unknown) (unknown) (unknown) (no date) (unknown) (unknown) Status post endoscopy (12/2019) (units unknown) (unknown) (unknown) (no date) (unknown) (unknown) Status post reduction mammoplasty (07/2010) (units unknown) (unknown) (unknown) (no date) (unknown) (unknown) Stroke (units unknown) (unknown) (unknown) (no date) (unknown) (unknown) Substance abuse (uni ts unknown) (unknown) (unknown) (no date) (unknown) (unknown) Surgical Histo ry (Updated 01/18/20 @ 15:38 by Summer Price DO) (units unknown) (unknown) (unknown) (no date) (unknown) (unknown) Temp 96.8 F L (units unknown) (unknown) (unknown) (no date) (unknown) (unknown) Temp Source Te mporal Artery Scan (units unknown) (unknown) (unknown) (no date) (unknown) (unknown) This note may have been all or partially generated using voice recognition (units unknown) (unknown) (unknown) (no date) (unknown) (unknown) Thoracic regio n somatic dysfunction (units unknown) (unknown) (unknown) (no date) (unknown) (unknown) Tinnitus (units unknown) (unknown) (unknown) (no date) (unknown) (unknown) Tobacco + Subs tance Use (units unknown) (unknown) (unknown) (no date) (unknown) (unknown) Tobacco Status (unit s unknown) (unknown) (unknown) (no date) (unknown) (unknown) Tubular adenom a of colon (12/2014) (units unknown) (unknown) (unknown) (no date) (unknown) (unknown) Urine Appearan ce Clear Last Edit by Lani Benavides CMA on 01/26/23 11:15 (units unknown) (unknown) (unknown) (no date) (unknown) (unknown) Urine Bilirubi n Negative Last Edit by Lani Benavides CMA on 01/26/23 11:15 (units unknown) (unknown) (unknown) (no date) (unknown) (unknown) Urine Blood +- 10 Ashish/uL Last Edit by Lani Benavides, [facility] on 01/26/23 11:15 (units unknown) (unknown) (unknown) (no date) (unknown) (unknown) Urine Color Ye llow Last Edit by Lani Benavides, [facility] on 01/26/23 11:15 (units unknown) (unknown) (unknown) (no date) (unknown) (unknown) Urine Dipstick (unit s unknown) (unknown) (unknown) (no date) (unknown) (unknown) Urine Glucose Negative mg/dL Last Edit by Lani Benavides, [facility] on 01/26/23 11 (units unknown) (unknown) (unknown) (no date) (unknown) (unknown) Urine Ketones Negative Last Edit by Lani Benavides, [facility] on 01/26/23 11:15 (units unknown) (unknown) (unknown) (no date) (unknown) (unknown) Urine Leukocyt e Esterase Negative Last Edit by Lani Benavides, [facility] on 01/26 (units unknown) (unknown) (unknown) (no date) (unknown) (unknown) Urine Nitrate Negative Last Edit by Lani Benavides, [facility] on 01/26/23 11:15 (units unknown) (unknown) (unknown) (no date) (unknown) (unknown) Urine Protein Negative Last Edit by Lani Benavides, [facility] on 01/26/23 11:15 (units unknown) (unknown) (unknown) (no date) (unknown) (unknown) Urine Specific [place] 1.010 Last Edit by Lani Benavides [facility] on 01/26/23 (units unknown) (unknown) (unknown) (no date) (unknown) (unknown) Urine Urobilin ogen - 0.2 mg/dL Last Edit by Lani Benavides, [facility] on (units unknown) (unknown) (unknown) (no date) (unknown) (unknown) Urine pH 7.0 L ast Edit by Lani Benavides, [facility] on 01/26/23 11:15 (units unknown) (unknown) (unknown) (no date) (unknown) (unknown) Visit Reasons: OMT #3 03 (units unknown) (unknown) (unknown) (no date) (unknown) (unknown) Vitals (units unknown) (unknown) (unknown) (no date) (unknown) (unknown) albuterol [ALBUTEROL] Allergy (Unknown, Verified 11/24/22 11:27) (units unknown) (unknown) (unknown) (no date) (unknown) (unknown) bladder pain (units unknown) (unknown) (unknown) (no date) (unknown) (unknown) congestion and stomach problems (units unknown) (unknown) (unknown) (no date) (unknown) (unknown) dexamethasone Adverse Reaction (Severe, Verified 11/24/22 11:27) (units unknown) (unknown) (unknown) (no date) (unknown) (unknown) gluten [GLUTEN ] Allergy (Unknown, Verified 11/24/22 11:27) (units unknown) (unknown) (unknown) (no date) (unknown) (unknown) grass pollen A llergy (Severe, Verified 11/24/22 11:27) (units unknown) (unknown) (unknown) (no date) (unknown) (unknown) have occurred. If there are any questions, please contact the Medical Records (units unknown) (unknown) (unknown) (no date) (unknown) (unknown) hydromorphone [HYDROMORPHONE] Allergy (Mild, Verified 11/24/22 11:27) (units unknown) (unknown) (unknown) (no date) (unknown) (unknown) lithium [LITHI UM] Allergy (Unknown, Verified 11/24/22 11:27) (units unknown) (unknown) (unknown) (no date) (unknown) (unknown) may occur. Occasional wrong-word or 'sound-alike' substitutions may have (units unknown) (unknown) (unknown) (no date) (unknown) (unknown) occurred due t o the inherent limitations of voice recognition software. Please (units unknown) (unknown) (unknown) (no date) (unknown) (unknown) read the note carefully and recognize, using context, where these substitutions (units unknown) (unknown) (unknown) (no date) (unknown) (unknown) software. Alth ough every effort is made to edit content, hand cell tuber errors (units unknown) (unknown) (unknown) (no date) (unknown) (unknown) tachycardia (units unknown) (unknown) Result panel 31 (unknown) (no date) (unknown) (unknown) (no value) (units unknown) (unknown) (unknown) (no date) (unknown) (unknown) (1) Pathologic al fracture, right foot, initial encounter for fracture: (units unknown) (unknown) (unknown) (no date) (unknown) (unknown) (10) Sacral re gion somatic dysfunction: (units unknown) (unknown) (unknown) (no date) (unknown) (unknown) (11) Somatic dysfunction of abdominal region: (units unknown) (unknown) (unknown) (no date) (unknown) (unknown) (12) Somatic dysfunction of rib region: (units unknown) (unknown) (unknown) (no date) (unknown) (unknown) (13) Somatic dysfunction of lower extremity: (units unknown) (unknown) (unknown) (no date) (unknown) (unknown) (14) Somatic dysfunction of upper extremity: (units unknown) (unknown) (unknown) (no date) (unknown) (unknown) (2) IBS (irrit able bowel syndrome): (units unknown) (unknown) (unknown) (no date) (unknown) (unknown) (3) Vitamin D deficiency disease: (units unknown) (unknown) (unknown) (no date) (unknown) (unknown) (4) Pernicious anemia: (units unknown) (unknown) (unknown) (no date) (unknown) (unknown) (5) Cranial so matic dysfunction: (units unknown) (unknown) (unknown) (no date) (unknown) (unknown) (6) Cervical s omatic dysfunction: (units unknown) (unknown) (unknown) (no date) (unknown) (unknown) (7) Thoracic r egion somatic dysfunction: (units unknown) (unknown) (unknown) (no date) (unknown) (unknown) (8) Lumbar reg ion somatic dysfunction: (units unknown) (unknown) (unknown) (no date) (unknown) (unknown) (9) Pelvic zoey atic dysfunction: (units unknown) (unknown) (unknown) (no date) (unknown) (unknown) /23 (units unknown) (unknown) (unknown) (no date) (unknown) (unknown) 0.5 mL 0RF NS Z23 - Encounter for immunization (units unknown) (unknown) (unknown) (no date) (unknown) (unknown) [id number] (units unknown) (unknown) (unknown) (no date) (unknown) (unknown) 01/26/23 (units unknown) (unknown) (unknown) (no date) (unknown) (unknown) 10:59 (units unknown) (unknown) (unknown) (no date) (unknown) (unknown) 11:15 (units unknown) (unknown) (unknown) (no date) (unknown) (unknown) 23 (units unknown) (unknown) (unknown) (no date) (unknown) (unknown) 7th day Confucianism (u nits unknown) (unknown) (unknown) (no date) (unknown) (unknown) :15 (units unknown) (unknown) (unknown) (no date) (unknown) (unknown) Abdomen: magaly c ganglion restr (units unknown) (unknown) (unknown) (no date) (unknown) (unknown) Acute pain of left shoulder (units unknown) (unknown) (unknown) (no date) (unknown) (unknown) Adacel(Tdap Adolesn/Adult)(PF) (diph,pertuss(acel), tet vac(PF)) 0.5 mL IM ONCE (units unknown) (unknown) (unknown) (no date) (unknown) (unknown) Age/Sex: 67 / F Date of Service: (units unknown) (unknown) (unknown) (no date) (unknown) (unknown) Allergic react ion to grass pollen (units unknown) (unknown) (unknown) (no date) (unknown) (unknown) Allergic to cats (un its unknown) (unknown) (unknown) (no date) (unknown) (unknown) Allergies (units unknown) (unknown) (unknown) (no date) (unknown) (unknown) [place] [id number] (units unknown) (unknown) (unknown) (no date) (unknown) (unknown) Anesthesia (units unknown) (unknown) (unknown) (no date) (unknown) (unknown) Angina pectoris (uni ts unknown) (unknown) (unknown) (no date) (unknown) (unknown) Ankle pain, ch ronic (2014) (units unknown) (unknown) (unknown) (no date) (unknown) (unknown) Ankle pain, chronic (units unknown) (unknown) (unknown) (no date) (unknown) (unknown) Anxiety (units unknown) (unknown) (unknown) (no date) (unknown) (unknown) Assessment + Plan (u nits unknown) (unknown) (unknown) (no date) (unknown) (unknown) Attending Dr: Laura LittleO. (units unknown) (unknown) (unknown) (no date) (unknown) (unknown) B12 (Cyanocoba l) Injection Today D51.0 - Vitamin B12 deficiency anemia due to (units unknown) (unknown) (unknown) (no date) (unknown) (unknown) B12 (IM after failing high dose sublingual) for occipital neuralgia, as well as (units unknown) (unknown) (unknown) (no date) (unknown) (unknown) BP 170/88 H (units unknown) (unknown) (unknown) (no date) (unknown) (unknown) Basic Metaboli c Panel Today D51.0 - Vitamin B12 deficiency anemia due to (units unknown) (unknown) (unknown) (no date) (unknown) (unknown) Billing- OMT Therapy: OMT 9-10 Body Regions- 20655 (units unknown) (unknown) (unknown) (no date) (unknown) (unknown) Bipolar disorder (un its unknown) (unknown) (unknown) (no date) (unknown) (unknown) Blood Pressure Location Lt brachial (units unknown) (unknown) (unknown) (no date) (unknown) (unknown) Brain cancer (units unknown) (unknown) (unknown) (no date) (unknown) (unknown) Broke R foot, very painful, still not weight bearing. Seeing ortho and podiatry. (units unknown) (unknown) (unknown) (no date) (unknown) (unknown) Cervical somat ic dysfunction (units unknown) (unknown) (unknown) (no date) (unknown) (unknown) Cervical: C4 FRSL ? (units unknown) (unknown) (unknown) (no date) (unknown) (unknown) Chicken pox (units unknown) (unknown) (unknown) (no date) (unknown) (unknown) Chief Complaint (uni ts unknown) (unknown) (unknown) (no date) (unknown) (unknown) Chief Complain t: multiple pain complaints (units unknown) (unknown) (unknown) (no date) (unknown) (unknown) Child Age: 34 Hx of appendectomy (units unknown) (unknown) (unknown) (no date) (unknown) (unknown) Child Age: 37 Penicillin allergy (units unknown) (unknown) (unknown) (no date) (unknown) (unknown) Child Age: 46 Hay fever (units unknown) (unknown) (unknown) (no date) (unknown) (unknown) 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 (units unknown) (unknown) (unknown) (no date) (unknown) (unknown) Chronic left-s ided thoracic back pain (units unknown) (unknown) (unknown) (no date) (unknown) (unknown) Complete Blood Count NO DIFF Today D51.0 - Vitamin B12 deficiency anemia due to (units unknown) (unknown) (unknown) (no date) (unknown) (unknown) 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 () (units unknown) (unknown) (unknown) (no date) (unknown) (unknown) Compression fr acture of body of thoracic vertebra () (units unknown) (unknown) (unknown) (no date) (unknown) (unknown) Cranial somati c dysfunction (units unknown) (unknown) (unknown) (no date) (unknown) (unknown) DAIRY Allergy (Intermediate, Uncoded 11/24/22 11:27) (units unknown) (unknown) (unknown) (no date) (unknown) (unknown) : 4 Acct:[id number] (units unknown) (unknown) (unknown) (no date) (unknown) (unknown) Depression (09/21/14) (units unknown) (unknown) (unknown) (no date) (unknown) (unknown) Depression (units unknown) (unknown) (unknown) (no date) (unknown) (unknown) Dept at . (units unknown) (unknown) (unknown) (no date) (unknown) (unknown) Details: (units unknown) (unknown) (unknown) (no date) (unknown) (unknown) Documented By: Laura Parikh D.O. 01/26/23 1059 (units unknown) (unknown) (unknown) (no date) (unknown) (unknown) Draft (units unknown) (unknown) (unknown) (no date) (unknown) (unknown) E87.6 - Hypokalemia (units unknown) (unknown) (unknown) (no date) (unknown) (unknown) Environmental allergies (units unknown) (unknown) (unknown) (no date) (unknown) (unknown) Esophageal stricture (units unknown) (unknown) (unknown) (no date) (unknown) (unknown) Esophagitis (units unknown) (unknown) (unknown) (no date) (unknown) (unknown) Exam Narrative (unit s unknown) (unknown) (unknown) (no date) (unknown) (unknown) Exam Narrative: (uni ts unknown) (unknown) (unknown) (no date) (unknown) (unknown) Exam (units unknown) (unknown) (unknown) (no date) (unknown) (unknown) Family History (Updated 06/08/18 @ 12:37 by Rabia Jacob) (units unknown) (unknown) (unknown) (no date) (unknown) (unknown) Family Practic e Office Visit (units unknown) (unknown) (unknown) (no date) (unknown) (unknown) Ferritin Today D51.0 - Vitamin B12 deficiency anemia due to intrinsic factor (units unknown) (unknown) (unknown) (no date) (unknown) (unknown) Fibromyalgia (units unknown) (unknown) (unknown) (no date) (unknown) (unknown) [facility] (units unknown) (unknown) (unknown) (no date) (unknown) (unknown) Foot pain (2011) (un its unknown) (unknown) (unknown) (no date) (unknown) (unknown) Gastropathy (units unknown) (unknown) (unknown) (no date) (unknown) (unknown) General: pleas ant, cooperative, +central adiposity, sitting comfortably in no (units unknown) (unknown) (unknown) (no date) (unknown) (unknown) Gets relief with OMT (units unknown) (unknown) (unknown) (no date) (unknown) (unknown) Grandmother Di abetes mellitus (units unknown) (unknown) (unknown) (no date) (unknown) (unknown) HPI (units unknown) (unknown) (unknown) (no date) (unknown) (unknown) Hayfever (units unknown) (unknown) (unknown) (no date) (unknown) (unknown) Head: b/l OM r estr, SBS compr (units unknown) (unknown) (unknown) (no date) (unknown) (unknown) Heart disease (units unknown) (unknown) (unknown) (no date) (unknown) (unknown) Height 5 ft 3.5 in ( units unknown) (unknown) (unknown) (no date) (unknown) (unknown) Hemorrhoids (units unknown) (unknown) (unknown) (no date) (unknown) (unknown) Hiatal hernia (units unknown) (unknown) (unknown) (no date) (unknown) (unknown) High cholesterol (un its unknown) (unknown) (unknown) (no date) (unknown) (unknown) History of candice betes mellitus (units unknown) (unknown) (unknown) (no date) (unknown) (unknown) History of fundoplication (units unknown) (unknown) (unknown) (no date) (unknown) (unknown) History of rep air of hiatal hernia (11/2011) (units unknown) (unknown) (unknown) (no date) (unknown) (unknown) History of tonsillectomy (1971) (units unknown) (unknown) (unknown) (no date) (unknown) (unknown) Hives (units unknown) (unknown) (unknown) (no date) (unknown) (unknown) Hypertension (units unknown) (unknown) (unknown) (no date) (unknown) (unknown) Hypothyroidism (unit s unknown) (unknown) (unknown) (no date) (unknown) (unknown) IBS (irritable bowel syndrome) (units unknown) (unknown) (unknown) (no date) (unknown) (unknown) 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 unknown) (unknown) (unknown) (no date) (unknown) (unknown) Informed conse nt given: Yes (units unknown) (unknown) (unknown) (no date) (unknown) (unknown) Intake (units unknown) (unknown) (unknown) (no date) (unknown) (unknown) Iron deficienc y, E87.6 - Hypokalemia (units unknown) (unknown) (unknown) (no date) (unknown) (unknown) Irritable julien l syndrome type: with both diarrhea and constipation (units unknown) (unknown) (unknown) (no date) (unknown) (unknown) Last Menstural Cycle + Details (units unknown) (unknown) (unknown) (no date) (unknown) (unknown) Leg worse compensating for foot positions (units unknown) (unknown) (unknown) (no date) (unknown) (unknown) Liver cancer (units unknown) (unknown) (unknown) (no date) (unknown) (unknown) Loc: [facility] (units unknown) (unknown) (unknown) (no date) (unknown) (unknown) Lower extremit ies: R FH ant (units unknown) (unknown) (unknown) (no date) (unknown) (unknown) Lumbar facet arthropathy (2013) (units unknown) (unknown) (unknown) (no date) (unknown) (unknown) Lumbar region somatic dysfunction (units unknown) (unknown) (unknown) (no date) (unknown) (unknown) Lumbar: L1 FRSR (uni ts unknown) (unknown) (unknown) (no date) (unknown) (unknown) Lung cancer (units unknown) (unknown) (unknown) (no date) (unknown) (unknown) Managing IBS a nd pernicious anemia with supplementation and dietary (units unknown) (unknown) (unknown) (no date) (unknown) (unknown) Medical Histor y (Updated 01/26/23 @ 11:31 by Laura Parikh DO) (units unknown) (unknown) (unknown) (no date) (unknown) (unknown) Medications: (units unknown) (unknown) (unknown) (no date) (unknown) (unknown) Mother d Diabetes mellitus (units unknown) (unknown) (unknown) (no date) (unknown) (unknown) Neuro: alert a nd oriented to person and situation (units unknown) (unknown) (unknown) (no date) (unknown) (unknown) New (units unknown) (unknown) (unknown) (no date) (unknown) (unknown) OMM Procedure Notes: (units unknown) (unknown) (unknown) (no date) (unknown) (unknown) OMT with PH an d avoiding R distal LE, focus on autonomic nervous system today (units unknown) (unknown) (unknown) (no date) (unknown) (unknown) Obesity (units unknown) (unknown) (unknown) (no date) (unknown) (unknown) Office Procedures (u nits unknown) (unknown) (unknown) (no date) (unknown) (unknown) Orders (units unknown) (unknown) (unknown) (no date) (unknown) (unknown) Orders: (units unknown) (unknown) (unknown) (no date) (unknown) (unknown) Osteoarthritis (2012) (units unknown) (unknown) (unknown) (no date) (unknown) (unknown) Osteopathic Structural Exam: (units unknown) (unknown) (unknown) (no date) (unknown) (unknown) Osteoporosis o f lumbar spine (units unknown) (unknown) (unknown) (no date) (unknown) (unknown) Osteoporosis (units unknown) (unknown) (unknown) (no date) (unknown) (unknown) Other Menstrua l Period: Postmenopausal (units unknown) (unknown) (unknown) (no date) (unknown) (unknown) Oxygen Deliver y Method room air (units unknown) (unknown) (unknown) (no date) (unknown) (unknown) PCV13 Adult (P revnar 13) Today Z23 - Encounter for immunization (units unknown) (unknown) (unknown) (no date) (unknown) (unknown) PFSH (units unknown) (unknown) (unknown) (no date) (unknown) (unknown) PH, cranial, G OT, BLT, MFR (units unknown) (unknown) (unknown) (no date) (unknown) (unknown) POC Urine Dip Today R30.0 - Dysuria (units unknown) (unknown) (unknown) (no date) (unknown) (unknown) PTSD (post-tra umatic stress disorder) (units unknown) (unknown) (unknown) (no date) (unknown) (unknown) Patient: Whitley Oakes MR#: M (units unknown) (unknown) (unknown) (no date) (unknown) (unknown) Pelvic somatic dysfunction (units unknown) (unknown) (unknown) (no date) (unknown) (unknown) Pelvis: L ant (units unknown) (unknown) (unknown) (no date) (unknown) (unknown) Pernicious anemia (u nits unknown) (unknown) (unknown) (no date) (unknown) (unknown) Personality disorder (units unknown) (unknown) (unknown) (no date) (unknown) (unknown) Plan (units unknown) (unknown) (unknown) (no date) (unknown) (unknown) Position Sitting (un its unknown) (unknown) (unknown) (no date) (unknown) (unknown) Prevnar 13 (PF ) (pneumoc 13-memo conj-dip cr(PF)) 0.5 mL IM ONCE 0.5 mL 0RF NS (units unknown) (unknown) (unknown) (no date) (unknown) (unknown) Psych: well ke mpt, speech and movement normal, normal affect (units unknown) (unknown) (unknown) (no date) (unknown) (unknown) Pulse 111 H (units unknown) (unknown) (unknown) (no date) (unknown) (unknown) Pulse Oximetry (%) 98 (units unknown) (unknown) (unknown) (no date) (unknown) (unknown) Pulse Source Monitor (units unknown) (unknown) (unknown) (no date) (unknown) (unknown) Qualified Code (s): K58.2 - Mixed irritable bowel syndrome (units unknown) (unknown) (unknown) (no date) (unknown) (unknown) Qualifiers: (units unknown) (unknown) (unknown) (no date) (unknown) (unknown) RLS (restless legs syndrome) (units unknown) (unknown) (unknown) (no date) (unknown) (unknown) Reason For Visit (un its unknown) (unknown) (unknown) (no date) (unknown) (unknown) Resp: normal e ffort, able to speak in complete sentences (units unknown) (unknown) (unknown) (no date) (unknown) (unknown) Results (units unknown) (unknown) (unknown) (no date) (unknown) (unknown) Ribcage: R2-3 post, b/l 12 exh (units unknown) (unknown) (unknown) (no date) (unknown) (unknown) Right shoulder pain (units unknown) (unknown) (unknown) (no date) (unknown) (unknown) SWELLING (units unknown) (unknown) (unknown) (no date) (unknown) (unknown) Sacral region somatic dysfunction (units unknown) (unknown) (unknown) (no date) (unknown) (unknown) Sacroiliitis (2012) (units unknown) (unknown) (unknown) (no date) (unknown) (unknown) Sacrum: b/l F, L>R SI restr (units unknown) (unknown) (unknown) (no date) (unknown) (unknown) Seborrheic keratosis (units unknown) (unknown) (unknown) (no date) (unknown) (unknown) Seeing podiatr y, getting splint re foot fracture. Still not weighted, will re (units unknown) (unknown) (unknown) (no date) (unknown) (unknown) Shoulders and neck worse having to use wheel chair (units unknown) (unknown) (unknown) (no date) (unknown) (unknown) Signed By: (units unknown) (unknown) (unknown) (no date) (unknown) (unknown) Sister d Diabetes mellitus (units unknown) (unknown) (unknown) (no date) (unknown) (unknown) Smoking Status : Former smoker (units unknown) (unknown) (unknown) (no date) (unknown) (unknown) Status post colonoscopy (09/2019) (units unknown) (unknown) (unknown) (no date) (unknown) (unknown) Status post endoscopy (12/2019) (units unknown) (unknown) (unknown) (no date) (unknown) (unknown) Status post reduction mammoplasty (07/2010) (units unknown) (unknown) (unknown) (no date) (unknown) (unknown) Status: Acute (units unknown) (unknown) (unknown) (no date) (unknown) (unknown) Status: Chronic (uni ts unknown) (unknown) (unknown) (no date) (unknown) (unknown) Stroke (units unknown) (unknown) (unknown) (no date) (unknown) (unknown) Substance abuse (uni ts unknown) (unknown) (unknown) (no date) (unknown) (unknown) Surgical Histo ry (Updated 01/18/20 @ 15:38 by Summer Price DO) (units unknown) (unknown) (unknown) (no date) (unknown) (unknown) Tdap Adult (Ad acel) Today Z23 - Encounter for immunization (units unknown) (unknown) (unknown) (no date) (unknown) (unknown) Temp 96.8 F L (units unknown) (unknown) (unknown) (no date) (unknown) (unknown) Temp Source Te mporal Artery Scan (units unknown) (unknown) (unknown) (no date) (unknown) (unknown) This note may have been all or partially generated using voice recognition (units unknown) (unknown) (unknown) (no date) (unknown) (unknown) Thoracic regio n somatic dysfunction (units unknown) (unknown) (unknown) (no date) (unknown) (unknown) 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, T7 FRSR (units unknown) (unknown) (unknown) (no date) (unknown) (unknown) Time Coding Mi nutes Spent: (must be on same date of service/appointment) (units unknown) (unknown) (unknown) (no date) (unknown) (unknown) Time Spent (units unknown) (unknown) (unknown) (no date) (unknown) (unknown) Tinnitus (units unknown) (unknown) (unknown) (no date) (unknown) (unknown) Tobacco + Subs tance Use (units unknown) (unknown) (unknown) (no date) (unknown) (unknown) Tobacco Status (unit s unknown) (unknown) (unknown) (no date) (unknown) (unknown) Total visit ti me apart from OMT 31 minutes today, including 20 minutes face to (units unknown) (unknown) (unknown) (no date) (unknown) (unknown) Tubular adenom a of colon (12/2014) (units unknown) (unknown) (unknown) (no date) (unknown) (unknown) Upper extremit ies: b/l scapulothoracic restr and levator scap htn (units unknown) (unknown) (unknown) (no date) (unknown) (unknown) Urine Appearan ce Clear Last Edit by Lani Benavides CMA on 01/26/23 11:15 (units unknown) (unknown) (unknown) (no date) (unknown) (unknown) Urine Bilirubi n Negative Last Edit by Lani Benavides CMA on 01/26/23 11:15 (units unknown) (unknown) (unknown) (no date) (unknown) (unknown) Urine Blood +- 10 Ashish/uL Last Edit by Lani Benavides CMA on 01/26/23 11:15 (units unknown) (unknown) (unknown) (no date) (unknown) (unknown) Urine Color Ye llow Last Edit by Lani Benavides CMA on 01/26/23 11:15 (units unknown) (unknown) (unknown) (no date) (unknown) (unknown) Urine Dipstick (unit s unknown) (unknown) (unknown) (no date) (unknown) (unknown) Urine Glucose Negative mg/dL Last Edit by Lani Benavides CMA on 01/26/23 11 (units unknown) (unknown) (unknown) (no date) (unknown) (unknown) Urine Ketones Negative Last Edit by Lani Devriesers, [facility] on 01/26/23 11:15 (units unknown) (unknown) (unknown) (no date) (unknown) (unknown) Urine Leukocyt e Esterase Negative Last Edit by Lani Devriesers, [facility] on 01/26 (units unknown) (unknown) (unknown) (no date) (unknown) (unknown) Urine Nitrate Negative Last Edit by Lani Devriesers, [facility] on 01/26/23 11:15 (units unknown) (unknown) (unknown) (no date) (unknown) (unknown) Urine Protein Negative Last Edit by Lani Devriesers, [facility] on 01/26/23 11:15 (units unknown) (unknown) (unknown) (no date) (unknown) (unknown) Urine Specific [place] 1.010 Last Edit by Lani Benavides, [facility] on 01/26/23 (units unknown) (unknown) (unknown) (no date) (unknown) (unknown) Urine Urobilin ogen - 0.2 mg/dL Last Edit by Lani Benavides, [facility] on (units unknown) (unknown) (unknown) (no date) (unknown) (unknown) Urine pH 7.0 L ast Edit by Lani Benavides, [facility] on 01/26/23 11:15 (units unknown) (unknown) (unknown) (no date) (unknown) (unknown) Visit Reasons: OMT #3 03 (units unknown) (unknown) (unknown) (no date) (unknown) (unknown) Vitals (units unknown) (unknown) (unknown) (no date) (unknown) (unknown) Vitamin D 25 H ydroxy (D3) Today D51.0 - Vitamin B12 deficiency anemia due to (units unknown) (unknown) (unknown) (no date) (unknown) (unknown) Albert's (units unknown) (unknown) (unknown) (no date) (unknown) (unknown) Z23 - Encounte r for immunization (units unknown) (unknown) (unknown) (no date) (unknown) (unknown) acute distress , has crutch for ambulation (units unknown) (unknown) (unknown) (no date) (unknown) (unknown) albuterol [ALBUTEROL] Allergy (Unknown, Verified 11/24/22 11:27) (units unknown) (unknown) (unknown) (no date) (unknown) (unknown) bladder pain (units unknown) (unknown) (unknown) (no date) (unknown) (unknown) congestion and stomach problems (units unknown) (unknown) (unknown) (no date) (unknown) (unknown) coordinating care. ( units unknown) (unknown) (unknown) (no date) (unknown) (unknown) cyanocobalamin (vitamin B-12) 1,000 mcg IM ONCE 1 mL 0RF D51.0 - Vitamin B12 (units unknown) (unknown) (unknown) (no date) (unknown) (unknown) deficiency ane mi due to intrinsic factor deficiency, E53.9 - Vitamin B (units unknown) (unknown) (unknown) (no date) (unknown) (unknown) deficiency, E5 5.9 - Vitamin D deficiency, unspecified, E61.1 - Iron deficiency, (units unknown) (unknown) (unknown) (no date) (unknown) (unknown) deficiency, unspecified (units unknown) (unknown) (unknown) (no date) (unknown) (unknown) dexamethasone Adverse Reaction (Severe, Verified 11/24/22 11:27) (units unknown) (unknown) (unknown) (no date) (unknown) (unknown) did comprehens cassy stool analysis through [facility] too (units unknown) (unknown) (unknown) (no date) (unknown) (unknown) did have SIBO breath through [facility] but unable to get results because was Dr (units unknown) (unknown) (unknown) (no date) (unknown) (unknown) eval after nex t ortho f/u. (units unknown) (unknown) (unknown) (no date) (unknown) (unknown) face on histor y, exam, and counseling, and 11 minutes reviewing, charting, and (units unknown) (unknown) (unknown) (no date) (unknown) (unknown) folic acid (units unknown) (unknown) (unknown) (no date) (unknown) (unknown) gastritis flares (un its unknown) (unknown) (unknown) (no date) (unknown) (unknown) gluten [GLUTEN ] Allergy (Unknown, Verified 11/24/22 11:27) (units unknown) (unknown) (unknown) (no date) (unknown) (unknown) gluten free vegan (u nits unknown) (unknown) (unknown) (no date) (unknown) (unknown) grass pollen A llergy (Severe, Verified 11/24/22 11:27) (units unknown) (unknown) (unknown) (no date) (unknown) (unknown) have occurred. If there are any questions, please contact the Medical Records (units unknown) (unknown) (unknown) (no date) (unknown) (unknown) hydromorphone [HYDROMORPHONE] Allergy (Mild, Verified 11/24/22 11:27) (units unknown) (unknown) (unknown) (no date) (unknown) (unknown) intrinsic fact or deficiency (units unknown) (unknown) (unknown) (no date) (unknown) (unknown) intrinsic fact or deficiency, E53.9 - Vitamin B deficiency, unspecified (units unknown) (unknown) (unknown) (no date) (unknown) (unknown) intrinsic fact or deficiency, E55.9 - Vitamin D deficiency, unspecified, E61.1 (units unknown) (unknown) (unknown) (no date) (unknown) (unknown) iodine and osmany enium for thyroid, rather than taking thyroid (units unknown) (unknown) (unknown) (no date) (unknown) (unknown) lithium [LITHI UM] Allergy (Unknown, Verified 11/24/22 11:27) (units unknown) (unknown) (unknown) (no date) (unknown) (unknown) magnesium (units unknown) (unknown) (unknown) (no date) (unknown) (unknown) may occur. Occasional wrong-word or 'sound-alike' substitutions may have (units unknown) (unknown) (unknown) (no date) (unknown) (unknown) modifications. Labs today and B12 injection. (units unknown) (unknown) (unknown) (no date) (unknown) (unknown) occurred due t o the inherent limitations of voice recognition software. Please (units unknown) (unknown) (unknown) (no date) (unknown) (unknown) per OSE. (units unknown) (unknown) (unknown) (no date) (unknown) (unknown) polyneuropathies (un its unknown) (unknown) (unknown) (no date) (unknown) (unknown) read the note carefully and recognize, using context, where these substitutions (units unknown) (unknown) (unknown) (no date) (unknown) (unknown) software. Alth ough every effort is made to edit content, hand cell tuber errors (units unknown) (unknown) (unknown) (no date) (unknown) (unknown) tachycardia (units unknown) (unknown) (unknown) (no date) (unknown) (unknown) takes: (units unknown) (unknown) (unknown) (no date) (unknown) (unknown) vitamin C / ir on 125mg plant based (units unknown) (unknown) (unknown) (no date) (unknown) (unknown) vitamin D / K2 52965/100 (units unknown) (unknown) (unknown) (no date) (unknown) (unknown) wants ongoing B12 and needles, hoping to get a formulation without additive (units unknown) (unknown) Result panel 32 (unknown) (no date) (unknown) (unknown) (no value) (units unknown) (unknown) (unknown) (no date) (unknown) (unknown) (1) Pathologic al fracture, right foot, initial encounter for fracture: (units unknown) (unknown) (unknown) (no date) (unknown) (unknown) (10) Sacral re gion somatic dysfunction: (units unknown) (unknown) (unknown) (no date) (unknown) (unknown) (11) Somatic dysfunction of abdominal region: (units unknown) (unknown) (unknown) (no date) (unknown) (unknown) (12) Somatic dysfunction of rib region: (units unknown) (unknown) (unknown) (no date) (unknown) (unknown) (13) Somatic dysfunction of lower extremity: (units unknown) (unknown) (unknown) (no date) (unknown) (unknown) (14) Somatic dysfunction of upper extremity: (units unknown) (unknown) (unknown) (no date) (unknown) (unknown) (2) IBS (irrit able bowel syndrome): (units unknown) (unknown) (unknown) (no date) (unknown) (unknown) (3) Vitamin D deficiency disease: (units unknown) (unknown) (unknown) (no date) (unknown) (unknown) (4) Pernicious anemia: (units unknown) (unknown) (unknown) (no date) (unknown) (unknown) (5) Cranial so matic dysfunction: (units unknown) (unknown) (unknown) (no date) (unknown) (unknown) (6) Cervical s omatic dysfunction: (units unknown) (unknown) (unknown) (no date) (unknown) (unknown) (7) Thoracic r egion somatic dysfunction: (units unknown) (unknown) (unknown) (no date) (unknown) (unknown) (8) Lumbar reg ion somatic dysfunction: (units unknown) (unknown) (unknown) (no date) (unknown) (unknown) (9) Pelvic zoey atic dysfunction: (units unknown) (unknown) (unknown) (no date) (unknown) (unknown) / (units unknown) (unknown) (unknown) (no date) (unknown) (unknown) [id number] (units unknown) (unknown) (unknown) (no date) (unknown) (unknown) 01/26/23 (units unknown) (unknown) (unknown) (no date) (unknown) (unknown) 10:59 (units unknown) (unknown) (unknown) (no date) (unknown) (unknown) 11:15 (units unknown) (unknown) (unknown) (no date) (unknown) (unknown) 23 (units unknown) (unknown) (unknown) (no date) (unknown) (unknown) 7th day Confucianism (u nits unknown) (unknown) (unknown) (no date) (unknown) (unknown) :15 (units unknown) (unknown) (unknown) (no date) (unknown) (unknown) Abdomen: magaly c ganglion restr (units unknown) (unknown) (unknown) (no date) (unknown) (unknown) Acute pain of left shoulder (units unknown) (unknown) (unknown) (no date) (unknown) (unknown) Age/Sex: 67 / F Date of Service: (units unknown) (unknown) (unknown) (no date) (unknown) (unknown) Allergic react ion to grass pollen (units unknown) (unknown) (unknown) (no date) (unknown) (unknown) Allergic to cats (un its unknown) (unknown) (unknown) (no date) (unknown) (unknown) Allergies (units unknown) (unknown) (unknown) (no date) (unknown) (unknown) AMIE Allen [id number] (units unknown) (unknown) (unknown) (no date) (unknown) (unknown) Anesthesia (units unknown) (unknown) (unknown) (no date) (unknown) (unknown) Angina pectoris (uni ts unknown) (unknown) (unknown) (no date) (unknown) (unknown) Ankle pain, ch ronic (2014) (units unknown) (unknown) (unknown) (no date) (unknown) (unknown) Ankle pain, chronic (units unknown) (unknown) (unknown) (no date) (unknown) (unknown) Anxiety (units unknown) (unknown) (unknown) (no date) (unknown) (unknown) Assessment + Plan (u nits unknown) (unknown) (unknown) (no date) (unknown) (unknown) Attending Dr: Laura Parikh D.O. (units unknown) (unknown) (unknown) (no date) (unknown) (unknown) B12 (Cyanocoba l) Injection Today D51.0 - Vitamin B12 deficiency anemia due to (units unknown) (unknown) (unknown) (no date) (unknown) (unknown) B12 (IM after failing high dose sublingual) for occipital neuralgia, as well as (units unknown) (unknown) (unknown) (no date) (unknown) (unknown) BP 170/88 H (units unknown) (unknown) (unknown) (no date) (unknown) (unknown) Basic Metaboli c Panel Today D51.0 - Vitamin B12 deficiency anemia due to (units unknown) (unknown) (unknown) (no date) (unknown) (unknown) Billing- OMT Therapy: OMT 9-10 Body Regions- [id number] (units unknown) (unknown) (unknown) (no date) (unknown) (unknown) Bipolar disorder (un its unknown) (unknown) (unknown) (no date) (unknown) (unknown) Blood Pressure Location Lt brachial (units unknown) (unknown) (unknown) (no date) (unknown) (unknown) Brain cancer (units unknown) (unknown) (unknown) (no date) (unknown) (unknown) Broke R foot, very painful, still not weight bearing. Seeing ortho and podiatry. (units unknown) (unknown) (unknown) (no date) (unknown) (unknown) Cervical somat ic dysfunction (units unknown) (unknown) (unknown) (no date) (unknown) (unknown) Cervical: C4 FRSL ? (units unknown) (unknown) (unknown) (no date) (unknown) (unknown) Chicken pox (units unknown) (unknown) (unknown) (no date) (unknown) (unknown) Chief Complaint (uni ts unknown) (unknown) (unknown) (no date) (unknown) (unknown) Chief Complain t: multiple pain complaints (units unknown) (unknown) (unknown) (no date) (unknown) (unknown) Child Age: 34 Hx of appendectomy (units unknown) (unknown) (unknown) (no date) (unknown) (unknown) Child Age: 37 Penicillin allergy (units unknown) (unknown) (unknown) (no date) (unknown) (unknown) Child Age: 46 Hay fever (units unknown) (unknown) (unknown) (no date) (unknown) (unknown) 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 (units unknown) (unknown) (unknown) (no date) (unknown) (unknown) Chronic left-s ided thoracic back pain (units unknown) (unknown) (unknown) (no date) (unknown) (unknown) Complete Blood Count NO DIFF Today D51.0 - Vitamin B12 deficiency anemia due to (units unknown) (unknown) (unknown) (no date) (unknown) (unknown) 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) (units unknown) (unknown) (unknown) (no date) (unknown) (unknown) Compression fr acture of body of thoracic vertebra () (units unknown) (unknown) (unknown) (no date) (unknown) (unknown) Cranial somati c dysfunction (units unknown) (unknown) (unknown) (no date) (unknown) (unknown) DAIRY Allergy (Intermediate, Uncoded 11/24/22 11:27) (units unknown) (unknown) (unknown) (no date) (unknown) (unknown) : 4 Acct:[id number] (units unknown) (unknown) (unknown) (no date) (unknown) (unknown) Depression (09/21/14) (units unknown) (unknown) (unknown) (no date) (unknown) (unknown) Depression (units unknown) (unknown) (unknown) (no date) (unknown) (unknown) Dept at . (units unknown) (unknown) (unknown) (no date) (unknown) (unknown) Details: (units unknown) (unknown) (unknown) (no date) (unknown) (unknown) Documented By: Laura Parikh D.O. 01/26/23 1059 (units unknown) (unknown) (unknown) (no date) (unknown) (unknown) Draft (units unknown) (unknown) (unknown) (no date) (unknown) (unknown) E87.6 - Hypokalemia (units unknown) (unknown) (unknown) (no date) (unknown) (unknown) Environmental allergies (units unknown) (unknown) (unknown) (no date) (unknown) (unknown) Esophageal stricture (units unknown) (unknown) (unknown) (no date) (unknown) (unknown) Esophagitis (units unknown) (unknown) (unknown) (no date) (unknown) (unknown) Exam Narrative (unit s unknown) (unknown) (unknown) (no date) (unknown) (unknown) Exam Narrative: (uni ts unknown) (unknown) (unknown) (no date) (unknown) (unknown) Exam (units unknown) (unknown) (unknown) (no date) (unknown) (unknown) Family History (Updated 06/08/18 @ 12:37 by Rabia Jacob) (units unknown) (unknown) (unknown) (no date) (unknown) (unknown) Family Practic e Office Visit (units unknown) (unknown) (unknown) (no date) (unknown) (unknown) Ferritin Today D51.0 - Vitamin B12 deficiency anemia due to intrinsic factor (units unknown) (unknown) (unknown) (no date) (unknown) (unknown) Fibromyalgia (units unknown) (unknown) (unknown) (no date) (unknown) (unknown) [facility] (units unknown) (unknown) (unknown) (no date) (unknown) (unknown) Foot pain (2011) (un its unknown) (unknown) (unknown) (no date) (unknown) (unknown) Gastropathy (units unknown) (unknown) (unknown) (no date) (unknown) (unknown) General: pleas ant, cooperative, +central adiposity, sitting comfortably in no (units unknown) (unknown) (unknown) (no date) (unknown) (unknown) Gets relief with OMT (units unknown) (unknown) (unknown) (no date) (unknown) (unknown) Grandmother Di abetes mellitus (units unknown) (unknown) (unknown) (no date) (unknown) (unknown) HPI (units unknown) (unknown) (unknown) (no date) (unknown) (unknown) Hayfever (units unknown) (unknown) (unknown) (no date) (unknown) (unknown) Head: b/l OM r estr, SBS compr (units unknown) (unknown) (unknown) (no date) (unknown) (unknown) Heart disease (units unknown) (unknown) (unknown) (no date) (unknown) (unknown) Height 5 ft 3.5 in ( units unknown) (unknown) (unknown) (no date) (unknown) (unknown) Hemorrhoids (units unknown) (unknown) (unknown) (no date) (unknown) (unknown) Hiatal hernia (units unknown) (unknown) (unknown) (no date) (unknown) (unknown) High cholesterol (un its unknown) (unknown) (unknown) (no date) (unknown) (unknown) History of candice betes mellitus (units unknown) (unknown) (unknown) (no date) (unknown) (unknown) History of fundoplication (units unknown) (unknown) (unknown) (no date) (unknown) (unknown) History of rep air of hiatal hernia (11/2011) (units unknown) (unknown) (unknown) (no date) (unknown) (unknown) History of tonsillectomy (1971) (units unknown) (unknown) (unknown) (no date) (unknown) (unknown) Hives (units unknown) (unknown) (unknown) (no date) (unknown) (unknown) Hypertension (units unknown) (unknown) (unknown) (no date) (unknown) (unknown) Hypothyroidism (unit s unknown) (unknown) (unknown) (no date) (unknown) (unknown) IBS (irritable bowel syndrome) (units unknown) (unknown) (unknown) (no date) (unknown) (unknown) 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 unknown) (unknown) (unknown) (no date) (unknown) (unknown) Informed conse nt given: Yes (units unknown) (unknown) (unknown) (no date) (unknown) (unknown) Intake (units unknown) (unknown) (unknown) (no date) (unknown) (unknown) Iron deficienc y, E87.6 - Hypokalemia (units unknown) (unknown) (unknown) (no date) (unknown) (unknown) Irritable julien l syndrome type: with both diarrhea and constipation (units unknown) (unknown) (unknown) (no date) (unknown) (unknown) Last Menstural Cycle + Details (units unknown) (unknown) (unknown) (no date) (unknown) (unknown) Leg worse compensating for foot positions (units unknown) (unknown) (unknown) (no date) (unknown) (unknown) Liver cancer (units unknown) (unknown) (unknown) (no date) (unknown) (unknown) Loc: [facility] (units unknown) (unknown) (unknown) (no date) (unknown) (unknown) Lower extremit ies: R FH ant (units unknown) (unknown) (unknown) (no date) (unknown) (unknown) Lumbar facet arthropathy (2013) (units unknown) (unknown) (unknown) (no date) (unknown) (unknown) Lumbar region somatic dysfunction (units unknown) (unknown) (unknown) (no date) (unknown) (unknown) Lumbar: L1 FRSR (uni ts unknown) (unknown) (unknown) (no date) (unknown) (unknown) Lung cancer (units unknown) (unknown) (unknown) (no date) (unknown) (unknown) Managing IBS a nd pernicious anemia with supplementation and dietary (units unknown) (unknown) (unknown) (no date) (unknown) (unknown) Medical Histor y (Updated 01/26/23 @ 11:31 by Laura Parikh DO) (units unknown) (unknown) (unknown) (no date) (unknown) (unknown) Medications: (units unknown) (unknown) (unknown) (no date) (unknown) (unknown) Mother d Diabetes mellitus (units unknown) (unknown) (unknown) (no date) (unknown) (unknown) Neuro: alert a nd oriented to person and situation (units unknown) (unknown) (unknown) (no date) (unknown) (unknown) New (units unknown) (unknown) (unknown) (no date) (unknown) (unknown) OMM Procedure Notes: (units unknown) (unknown) (unknown) (no date) (unknown) (unknown) OMT with PH an d avoiding R distal LE, focus on autonomic nervous system today (units unknown) (unknown) (unknown) (no date) (unknown) (unknown) Obesity (units unknown) (unknown) (unknown) (no date) (unknown) (unknown) Office Procedures (u nits unknown) (unknown) (unknown) (no date) (unknown) (unknown) Orders (units unknown) (unknown) (unknown) (no date) (unknown) (unknown) Orders: (units unknown) (unknown) (unknown) (no date) (unknown) (unknown) Osteoarthritis (2012) (units unknown) (unknown) (unknown) (no date) (unknown) (unknown) Osteopathic Structural Exam: (units unknown) (unknown) (unknown) (no date) (unknown) (unknown) Osteoporosis o f lumbar spine (units unknown) (unknown) (unknown) (no date) (unknown) (unknown) Osteoporosis (units unknown) (unknown) (unknown) (no date) (unknown) (unknown) Other Menstrua l Period: Postmenopausal (units unknown) (unknown) (unknown) (no date) (unknown) (unknown) Oxygen Deliver y Method room air (units unknown) (unknown) (unknown) (no date) (unknown) (unknown) PFSH (units unknown) (unknown) (unknown) (no date) (unknown) (unknown) PH, cranial, G OT, BLT, MFR (units unknown) (unknown) (unknown) (no date) (unknown) (unknown) POC Urine Dip Today R30.0 - Dysuria (units unknown) (unknown) (unknown) (no date) (unknown) (unknown) PTSD (post-tra umatic stress disorder) (units unknown) (unknown) (unknown) (no date) (unknown) (unknown) Patient: VioletteWhitley MR#: M (units unknown) (unknown) (unknown) (no date) (unknown) (unknown) Pelvic somatic dysfunction (units unknown) (unknown) (unknown) (no date) (unknown) (unknown) Pelvis: L ant (units unknown) (unknown) (unknown) (no date) (unknown) (unknown) Pernicious anemia (u nits unknown) (unknown) (unknown) (no date) (unknown) (unknown) Personality disorder (units unknown) (unknown) (unknown) (no date) (unknown) (unknown) Plan (units unknown) (unknown) (unknown) (no date) (unknown) (unknown) Position Sitting (un its unknown) (unknown) (unknown) (no date) (unknown) (unknown) Psych: well ke mpt, speech and movement normal, normal affect (units unknown) (unknown) (unknown) (no date) (unknown) (unknown) Pulse 111 H (units unknown) (unknown) (unknown) (no date) (unknown) (unknown) Pulse Oximetry (%) 98 (units unknown) (unknown) (unknown) (no date) (unknown) (unknown) Pulse Source Monitor (units unknown) (unknown) (unknown) (no date) (unknown) (unknown) Qualified Code (s): K58.2 - Mixed irritable bowel syndrome (units unknown) (unknown) (unknown) (no date) (unknown) (unknown) Qualifiers: (units unknown) (unknown) (unknown) (no date) (unknown) (unknown) RLS (restless legs syndrome) (units unknown) (unknown) (unknown) (no date) (unknown) (unknown) Reason For Visit (un its unknown) (unknown) (unknown) (no date) (unknown) (unknown) Resp: normal e ffort, able to speak in complete sentences (units unknown) (unknown) (unknown) (no date) (unknown) (unknown) Results (units unknown) (unknown) (unknown) (no date) (unknown) (unknown) Ribcage: R2-3 post, b/l 12 exh (units unknown) (unknown) (unknown) (no date) (unknown) (unknown) Right shoulder pain (units unknown) (unknown) (unknown) (no date) (unknown) (unknown) SWELLING (units unknown) (unknown) (unknown) (no date) (unknown) (unknown) Sacral region somatic dysfunction (units unknown) (unknown) (unknown) (no date) (unknown) (unknown) Sacroiliitis (2012) (units unknown) (unknown) (unknown) (no date) (unknown) (unknown) Sacrum: b/l F, L>R SI restr (units unknown) (unknown) (unknown) (no date) (unknown) (unknown) Seborrheic keratosis (units unknown) (unknown) (unknown) (no date) (unknown) (unknown) Seeing podiatr y, getting splint re foot fracture. Still not weighted, will re (units unknown) (unknown) (unknown) (no date) (unknown) (unknown) Shoulders and neck worse having to use wheel chair (units unknown) (unknown) (unknown) (no date) (unknown) (unknown) Signed By: (units unknown) (unknown) (unknown) (no date) (unknown) (unknown) Sister d Diabetes mellitus (units unknown) (unknown) (unknown) (no date) (unknown) (unknown) Smoking Status : Former smoker (units unknown) (unknown) (unknown) (no date) (unknown) (unknown) Status post colonoscopy (09/2019) (units unknown) (unknown) (unknown) (no date) (unknown) (unknown) Status post endoscopy (12/2019) (units unknown) (unknown) (unknown) (no date) (unknown) (unknown) Status post reduction mammoplasty (07/2010) (units unknown) (unknown) (unknown) (no date) (unknown) (unknown) Status: Acute (units unknown) (unknown) (unknown) (no date) (unknown) (unknown) Status: Chronic (uni ts unknown) (unknown) (unknown) (no date) (unknown) (unknown) Stroke (units unknown) (unknown) (unknown) (no date) (unknown) (unknown) Substance abuse (uni ts unknown) (unknown) (unknown) (no date) (unknown) (unknown) Surgical Histo ry (Updated 01/18/20 @ 15:38 by Summer Price DO) (units unknown) (unknown) (unknown) (no date) (unknown) (unknown) Temp 96.8 F L (units unknown) (unknown) (unknown) (no date) (unknown) (unknown) Temp Source Te mporal Artery Scan (units unknown) (unknown) (unknown) (no date) (unknown) (unknown) This note may have been all or partially generated using voice recognition (units unknown) (unknown) (unknown) (no date) (unknown) (unknown) Thoracic regio n somatic dysfunction (units unknown) (unknown) (unknown) (no date) (unknown) (unknown) 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, T7 FRSR (units unknown) (unknown) (unknown) (no date) (unknown) (unknown) Time Coding Mi nutes Spent: (must be on same date of service/appointment) (units unknown) (unknown) (unknown) (no date) (unknown) (unknown) Time Spent (units unknown) (unknown) (unknown) (no date) (unknown) (unknown) Tinnitus (units unknown) (unknown) (unknown) (no date) (unknown) (unknown) Tobacco + Subs tance Use (units unknown) (unknown) (unknown) (no date) (unknown) (unknown) Tobacco Status (unit s unknown) (unknown) (unknown) (no date) (unknown) (unknown) Total visit ti me apart from OMT 31 minutes today, including 20 minutes face to (units unknown) (unknown) (unknown) (no date) (unknown) (unknown) Tubular adenom a of colon (12/2014) (units unknown) (unknown) (unknown) (no date) (unknown) (unknown) Upper extremit ies: b/l scapulothoracic restr and levator scap htn (units unknown) (unknown) (unknown) (no date) (unknown) (unknown) Urine Appearan ce Clear Last Edit by Lani Benavides CMA on 01/26/23 11:15 (units unknown) (unknown) (unknown) (no date) (unknown) (unknown) Urine Bilirubi n Negative Last Edit by Lani Benavides CMA on 01/26/23 11:15 (units unknown) (unknown) (unknown) (no date) (unknown) (unknown) Urine Blood +- 10 Ashish/uL Last Edit by Lani Benavides CMA on 01/26/23 11:15 (units unknown) (unknown) (unknown) (no date) (unknown) (unknown) Urine Color Ye llow Last Edit by Lani Benavides CMA on 01/26/23 11:15 (units unknown) (unknown) (unknown) (no date) (unknown) (unknown) Urine Dipstick (unit s unknown) (unknown) (unknown) (no date) (unknown) (unknown) Urine Glucose Negative mg/dL Last Edit by Lani Benavides, [facility] on 01/26/23 11 (units unknown) (unknown) (unknown) (no date) (unknown) (unknown) Urine Ketones Negative Last Edit by Lani Benavides, [facility] on 01/26/23 11:15 (units unknown) (unknown) (unknown) (no date) (unknown) (unknown) Urine Leukocyt e Esterase Negative Last Edit by Lani Benavides, [facility] on 01/26 (units unknown) (unknown) (unknown) (no date) (unknown) (unknown) Urine Nitrate Negative Last Edit by Lani Benavides, [facility] on 01/26/23 11:15 (units unknown) (unknown) (unknown) (no date) (unknown) (unknown) Urine Protein Negative Last Edit by Lani Benavides, [facility] on 01/26/23 11:15 (units unknown) (unknown) (unknown) (no date) (unknown) (unknown) Urine Specific [place] 1.010 Last Edit by Lani Benavides, [facility] on 01/26/23 (units unknown) (unknown) (unknown) (no date) (unknown) (unknown) Urine Urobilin ogen - 0.2 mg/dL Last Edit by Lani Benavides, [facility] on units unknown) (unknown) (unknown) (no date) (unknown) (unknown) Urine pH 7.0 L ast Edit by Lani Benavides, [facility] on 01/26/23 11:15 (units unknown) (unknown) (unknown) (no date) (unknown) (unknown) Visit Reasons: OMT #3 03 (units unknown) (unknown) (unknown) (no date) (unknown) (unknown) Vitals (units unknown) (unknown) (unknown) (no date) (unknown) (unknown) Vitamin D 25 H ydroxy (D3) Today D51.0 - Vitamin B12 deficiency anemia due to (units unknown) (unknown) (unknown) (no date) (unknown) (unknown) Albert's (units unknown) (unknown) (unknown) (no date) (unknown) (unknown) acute distress , has crutch for ambulation (units unknown) (unknown) (unknown) (no date) (unknown) (unknown) albuterol [ALBUTEROL] Allergy (Unknown, Verified 11/24/22 11:27) (units unknown) (unknown) (unknown) (no date) (unknown) (unknown) bladder pain (units unknown) (unknown) (unknown) (no date) (unknown) (unknown) congestion and stomach problems (units unknown) (unknown) (unknown) (no date) (unknown) (unknown) coordinating care. ( units unknown) (unknown) (unknown) (no date) (unknown) (unknown) cyanocobalamin (vitamin B-12) 1,000 mcg IM ONCE 1 mL 0RF D51.0 - Vitamin B12 (units unknown) (unknown) (unknown) (no date) (unknown) (unknown) deficiency ane mi due to intrinsic factor deficiency, E53.9 - Vitamin B (units unknown) (unknown) (unknown) (no date) (unknown) (unknown) deficiency, E5 5.9 - Vitamin D deficiency, unspecified, E61.1 - Iron deficiency, (units unknown) (unknown) (unknown) (no date) (unknown) (unknown) deficiency, unspecified (units unknown) (unknown) (unknown) (no date) (unknown) (unknown) dexamethasone Adverse Reaction (Severe, Verified 11/24/22 11:27) (units unknown) (unknown) (unknown) (no date) (unknown) (unknown) did comprehens cassy stool analysis through [facility] too (units unknown) (unknown) (unknown) (no date) (unknown) (unknown) did have SIBO breath through [facility] but unable to get results because was Dr (units unknown) (unknown) (unknown) (no date) (unknown) (unknown) eval after nex t ortho f/u. (units unknown) (unknown) (unknown) (no date) (unknown) (unknown) face on histor y, exam, and counseling, and 11 minutes reviewing, charting, and (units unknown) (unknown) (unknown) (no date) (unknown) (unknown) folic acid (units unknown) (unknown) (unknown) (no date) (unknown) (unknown) gastritis flares (un its unknown) (unknown) (unknown) (no date) (unknown) (unknown) gluten [GLUTEN ] Allergy (Unknown, Verified 11/24/22 11:27) (units unknown) (unknown) (unknown) (no date) (unknown) (unknown) gluten free vegan (u nits unknown) (unknown) (unknown) (no date) (unknown) (unknown) grass pollen A llergy (Severe, Verified 11/24/22 11:27) (units unknown) (unknown) (unknown) (no date) (unknown) (unknown) have occurred. If there are any questions, please contact the Medical Records (units unknown) (unknown) (unknown) (no date) (unknown) (unknown) hydromorphone [HYDROMORPHONE] Allergy (Mild, Verified 11/24/22 11:27) (units unknown) (unknown) (unknown) (no date) (unknown) (unknown) intrinsic fact or deficiency (units unknown) (unknown) (unknown) (no date) (unknown) (unknown) intrinsic fact or deficiency, E53.9 - Vitamin B deficiency, unspecified (units unknown) (unknown) (unknown) (no date) (unknown) (unknown) intrinsic fact or deficiency, E55.9 - Vitamin D deficiency, unspecified, E61.1 (units unknown) (unknown) (unknown) (no date) (unknown) (unknown) iodine and osmany enium for thyroid, rather than taking thyroid (units unknown) (unknown) (unknown) (no date) (unknown) (unknown) lithium [LITHI UM] Allergy (Unknown, Verified 11/24/22 11:27) (units unknown) (unknown) (unknown) (no date) (unknown) (unknown) magnesium (units unknown) (unknown) (unknown) (no date) (unknown) (unknown) may occur. Occasional wrong-word or 'sound-alike' substitutions may have (units unknown) (unknown) (unknown) (no date) (unknown) (unknown) modifications. Labs today and B12 injection. (units unknown) (unknown) (unknown) (no date) (unknown) (unknown) occurred due t o the inherent limitations of voice recognition software. Please (units unknown) (unknown) (unknown) (no date) (unknown) (unknown) per OSE. (units unknown) (unknown) (unknown) (no date) (unknown) (unknown) polyneuropathies (un its unknown) (unknown) (unknown) (no date) (unknown) (unknown) read the note carefully and recognize, using context, where these substitutions (units unknown) (unknown) (unknown) (no date) (unknown) (unknown) software. Alth ough every effort is made to edit content, hand cell tuber errors (units unknown) (unknown) (unknown) (no date) (unknown) (unknown) tachycardia (units unknown) (unknown) (unknown) (no date) (unknown) (unknown) takes: (units unknown) (unknown) (unknown) (no date) (unknown) (unknown) vitamin C / ir on 125mg plant based (units unknown) (unknown) (unknown) (no date) (unknown) (unknown) vitamin D / K2 75277/100 (units unknown) (unknown) (unknown) (no date) (unknown) (unknown) wants ongoing B12 and needles, hoping to get a formulation without additive (units unknown) (unknown) Result panel 33 (unknown) (no date) (unknown) (unknown) (no value) (units unknown) (unknown) (unknown) (no date) (unknown) (unknown) (1) Pathologic al fracture, right foot, initial encounter for fracture: (units unknown) (unknown) (unknown) (no date) (unknown) (unknown) (10) Sacral re gion somatic dysfunction: (units unknown) (unknown) (unknown) (no date) (unknown) (unknown) (11) Somatic dysfunction of abdominal region: (units unknown) (unknown) (unknown) (no date) (unknown) (unknown) (12) Somatic dysfunction of rib region: (units unknown) (unknown) (unknown) (no date) (unknown) (unknown) (13) Somatic dysfunction of lower extremity: (units unknown) (unknown) (unknown) (no date) (unknown) (unknown) (14) Somatic dysfunction of upper extremity: (units unknown) (unknown) (unknown) (no date) (unknown) (unknown) (2) IBS (irrit able bowel syndrome): (units unknown) (unknown) (unknown) (no date) (unknown) (unknown) (3) Vitamin D deficiency disease: (units unknown) (unknown) (unknown) (no date) (unknown) (unknown) (4) Pernicious anemia: (units unknown) (unknown) (unknown) (no date) (unknown) (unknown) (5) Cranial so matic dysfunction: (units unknown) (unknown) (unknown) (no date) (unknown) (unknown) (6) Cervical s omatic dysfunction: (units unknown) (unknown) (unknown) (no date) (unknown) (unknown) (7) Thoracic r egion somatic dysfunction: (units unknown) (unknown) (unknown) (no date) (unknown) (unknown) (8) Lumbar reg ion somatic dysfunction: (units unknown) (unknown) (unknown) (no date) (unknown) (unknown) (9) Pelvic zoey atic dysfunction: (units unknown) (unknown) (unknown) (no date) (unknown) (unknown) /23 (units unknown) (unknown) (unknown) (no date) (unknown) (unknown) [id number] (units unknown) (unknown) (unknown) (no date) (unknown) (unknown) 12/26/17 [Hist ory Confirmed 01/26/23] (units unknown) (unknown) (unknown) (no date) (unknown) (unknown) 01/26/23 (units unknown) (unknown) (unknown) (no date) (unknown) (unknown) 01/26/23] (units unknown) (unknown) (unknown) (no date) (unknown) (unknown) 03/25/22 [Rx Confirmed 01/26/23] (units unknown) (unknown) (unknown) (no date) (unknown) (unknown) 10:59 (units unknown) (unknown) (unknown) (no date) (unknown) (unknown) 11:15 (units unknown) (unknown) (unknown) (no date) (unknown) (unknown) 23 (units unknown) (unknown) (unknown) (no date) (unknown) (unknown) 67 yo female presents today for OMT #2 and B12 injection (units unknown) (unknown) (unknown) (no date) (unknown) (unknown) 7th day Confucianism (u nits unknown) (unknown) (unknown) (no date) (unknown) (unknown) :15 (units unknown) (unknown) (unknown) (no date) (unknown) (unknown) Abdomen: magaly c ganglion restr (units unknown) (unknown) (unknown) (no date) (unknown) (unknown) Accompanied by : (units unknown) (unknown) (unknown) (no date) (unknown) (unknown) Acute pain of left shoulder (units unknown) (unknown) (unknown) (no date) (unknown) (unknown) Adult (CMS 138/2/22/69/61/64/16 5) (units unknown) (unknown) (unknown) (no date) (unknown) (unknown) Age/Sex: 67 / F Date of Service: (units unknown) (unknown) (unknown) (no date) (unknown) (unknown) Allergic react ion to grass pollen (units unknown) (unknown) (unknown) (no date) (unknown) (unknown) Allergic to cats (un its unknown) (unknown) (unknown) (no date) (unknown) (unknown) Allergies (units unknown) (unknown) (unknown) (no date) (unknown) (unknown) [place] [id number] (units unknown) (unknown) (unknown) (no date) (unknown) (unknown) Anesthesia (units unknown) (unknown) (unknown) (no date) (unknown) (unknown) Angina pectoris (uni ts unknown) (unknown) (unknown) (no date) (unknown) (unknown) Ankle pain, ch ronic (2014) (units unknown) (unknown) (unknown) (no date) (unknown) (unknown) Ankle pain, chronic (units unknown) (unknown) (unknown) (no date) (unknown) (unknown) Anxiety (units unknown) (unknown) (unknown) (no date) (unknown) (unknown) Assessment + Plan (u nits unknown) (unknown) (unknown) (no date) (unknown) (unknown) Attending Dr: Laura Parikh DElliottOElliott (units unknown) (unknown) (unknown) (no date) (unknown) (unknown) B12 (Cyanocoba l) Injection Today D51.0 - Vitamin B12 deficiency anemia due to (units unknown) (unknown) (unknown) (no date) (unknown) (unknown) B12 (IM after failing high dose sublingual) for occipital neuralgia, as well as (units unknown) (unknown) (unknown) (no date) (unknown) (unknown) BMI Refused (units unknown) (unknown) (unknown) (no date) (unknown) (unknown) BMI Screening: Yes BMI screening not done Reason: Yes Patient refused (units unknown) (unknown) (unknown) (no date) (unknown) (unknown) BP 170/88 H (units unknown) (unknown) (unknown) (no date) (unknown) (unknown) Basic Metaboli c Panel Today D51.0 - Vitamin B12 deficiency anemia due to (units unknown) (unknown) (unknown) (no date) (unknown) (unknown) Billing- OMT Therapy: OMT 9-10 Body Regions- [id number] (units unknown) (unknown) (unknown) (no date) (unknown) (unknown) Bipolar disorder (un its unknown) (unknown) (unknown) (no date) (unknown) (unknown) Blood Pressure Location Lt brachial (units unknown) (unknown) (unknown) (no date) (unknown) (unknown) Brain cancer (units unknown) (unknown) (unknown) (no date) (unknown) (unknown) Broke R foot, very painful, still not weight bearing. Seeing ortho and podiatry. (units unknown) (unknown) (unknown) (no date) (unknown) (unknown) Cervical somat ic dysfunction (units unknown) (unknown) (unknown) (no date) (unknown) (unknown) Cervical: C4 FRSL ? (units unknown) (unknown) (unknown) (no date) (unknown) (unknown) Chicken pox (units unknown) (unknown) (unknown) (no date) (unknown) (unknown) Chief Complaint (uni ts unknown) (unknown) (unknown) (no date) (unknown) (unknown) Chief Complain t: multiple pain complaints (units unknown) (unknown) (unknown) (no date) (unknown) (unknown) Child Age: 34 Hx of appendectomy (units unknown) (unknown) (unknown) (no date) (unknown) (unknown) Child Age: 37 Penicillin allergy (units unknown) (unknown) (unknown) (no date) (unknown) (unknown) Child Age: 46 Hay fever (units unknown) (unknown) (unknown) (no date) (unknown) (unknown) 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 (units unknown) (unknown) (unknown) (no date) (unknown) (unknown) Chronic left-s ided thoracic back pain (units unknown) (unknown) (unknown) (no date) (unknown) (unknown) Complete Blood Count NO DIFF Today D51.0 - Vitamin B12 deficiency anemia due to (units unknown) (unknown) (unknown) (no date) (unknown) (unknown) 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) (units unknown) (unknown) (unknown) (no date) (unknown) (unknown) Compression fr acture of body of thoracic vertebra (-04/2021) (units unknown) (unknown) (unknown) (no date) (unknown) (unknown) Confirmed 01/26/23] (units unknown) (unknown) (unknown) (no date) (unknown) (unknown) Cranial somati c dysfunction (units unknown) (unknown) (unknown) (no date) (unknown) (unknown) DAIRY Allergy (Intermediate, Uncoded 01/26/23 11:45) (units unknown) (unknown) (unknown) (no date) (unknown) (unknown) : 4 Acct:[id number] (units unknown) (unknown) (unknown) (no date) (unknown) (unknown) Depression (09/21/14) (units unknown) (unknown) (unknown) (no date) (unknown) (unknown) Depression (units unknown) (unknown) (unknown) (no date) (unknown) (unknown) Dept at . (units unknown) (unknown) (unknown) (no date) (unknown) (unknown) Details: (units unknown) (unknown) (unknown) (no date) (unknown) (unknown) Disabled Katharine Permit #1 ea 04/08/22 [Rx Confirmed 01/26/23] (units unknown) (unknown) (unknown) (no date) (unknown) (unknown) Documented By: Laura Parikh D.O. 01/26/23 1059 (units unknown) (unknown) (unknown) (no date) (unknown) (unknown) Draft (units unknown) (unknown) (unknown) (no date) (unknown) (unknown) Due for PCV13, TDaP and Shingrix. (units unknown) (unknown) (unknown) (no date) (unknown) (unknown) E87.6 - Hypokalemia (units unknown) (unknown) (unknown) (no date) (unknown) (unknown) Environmental allergies (units unknown) (unknown) (unknown) (no date) (unknown) (unknown) Esophageal stricture (units unknown) (unknown) (unknown) (no date) (unknown) (unknown) Esophagitis (units unknown) (unknown) (unknown) (no date) (unknown) (unknown) Exam Narrative (unit s unknown) (unknown) (unknown) (no date) (unknown) (unknown) Exam Narrative: (uni ts unknown) (unknown) (unknown) (no date) (unknown) (unknown) Exam (units unknown) (unknown) (unknown) (no date) (unknown) (unknown) Family History (Updated 06/08/18 @ 12:37 by Rabia Jacob) (units unknown) (unknown) (unknown) (no date) (unknown) (unknown) Family Practic e Office Visit (units unknown) (unknown) (unknown) (no date) (unknown) (unknown) Ferritin Today D51.0 - Vitamin B12 deficiency anemia due to intrinsic factor (units unknown) (unknown) (unknown) (no date) (unknown) (unknown) Fibromyalgia (units unknown) (unknown) (unknown) (no date) (unknown) (unknown) [facility] (units unknown) (unknown) (unknown) (no date) (unknown) (unknown) Fine) See Rx Instructions .Route .COMPLEX #200 ea 01/15/23 [Rx Confirmed (units unknown) (unknown) (unknown) (no date) (unknown) (unknown) Foot pain (2011) (un its unknown) (unknown) (unknown) (no date) (unknown) (unknown) Gastropathy (units unknown) (unknown) (unknown) (no date) (unknown) (unknown) General: pleas ant, cooperative, +central adiposity, sitting comfortably in no (units unknown) (unknown) (unknown) (no date) (unknown) (unknown) Gets relief with OMT (units unknown) (unknown) (unknown) (no date) (unknown) (unknown) Grandmother Di abetes mellitus (units unknown) (unknown) (unknown) (no date) (unknown) (unknown) HPI (units unknown) (unknown) (unknown) (no date) (unknown) (unknown) Hayfever (units unknown) (unknown) (unknown) (no date) (unknown) (unknown) Head: b/l OM r estr, SBS compr (units unknown) (unknown) (unknown) (no date) (unknown) (unknown) Health Managem ent reviewed with patient: Yes (units unknown) (unknown) (unknown) (no date) (unknown) (unknown) Health Management (u nits unknown) (unknown) (unknown) (no date) (unknown) (unknown) Heart disease (units unknown) (unknown) (unknown) (no date) (unknown) (unknown) Height 5 ft 3.5 in ( units unknown) (unknown) (unknown) (no date) (unknown) (unknown) Hemorrhoids (units unknown) (unknown) (unknown) (no date) (unknown) (unknown) Hiatal hernia (units unknown) (unknown) (unknown) (no date) (unknown) (unknown) High cholesterol (un its unknown) (unknown) (unknown) (no date) (unknown) (unknown) History of candice betes mellitus (units unknown) (unknown) (unknown) (no date) (unknown) (unknown) History of fundoplication (units unknown) (unknown) (unknown) (no date) (unknown) (unknown) History of rep air of hiatal hernia (11/2011) (units unknown) (unknown) (unknown) (no date) (unknown) (unknown) History of tonsillectomy (1971) (units unknown) (unknown) (unknown) (no date) (unknown) (unknown) Hives (units unknown) (unknown) (unknown) (no date) (unknown) (unknown) Hypertension (units unknown) (unknown) (unknown) (no date) (unknown) (unknown) Hypothyroidism (unit s unknown) (unknown) (unknown) (no date) (unknown) (unknown) IBS (irritable bowel syndrome) (units unknown) (unknown) (unknown) (no date) (unknown) (unknown) 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 unknown) (unknown) (unknown) (no date) (unknown) (unknown) Informed conse nt given: Yes (units unknown) (unknown) (unknown) (no date) (unknown) (unknown) Intake Note: (units unknown) (unknown) (unknown) (no date) (unknown) (unknown) Intake perform ed by: Lani Benavides (units unknown) (unknown) (unknown) (no date) (unknown) (unknown) Intake (units unknown) (unknown) (unknown) (no date) (unknown) (unknown) Intake- Clinci al Staff (units unknown) (unknown) (unknown) (no date) (unknown) (unknown) Iron deficienc y, E87.6 - Hypokalemia (units unknown) (unknown) (unknown) (no date) (unknown) (unknown) Irritable julien l syndrome type: with both diarrhea and constipation (units unknown) (unknown) (unknown) (no date) (unknown) (unknown) Last Menstural Cycle + Details (units unknown) (unknown) (unknown) (no date) (unknown) (unknown) Leg worse compensating for foot positions (units unknown) (unknown) (unknown) (no date) (unknown) (unknown) Liver cancer (units unknown) (unknown) (unknown) (no date) (unknown) (unknown) Loc: [facility] (units unknown) (unknown) (unknown) (no date) (unknown) (unknown) Lower extremit ies: R FH ant (units unknown) (unknown) (unknown) (no date) (unknown) (unknown) Lumbar facet arthropathy (2013) (units unknown) (unknown) (unknown) (no date) (unknown) (unknown) Lumbar region somatic dysfunction (units unknown) (unknown) (unknown) (no date) (unknown) (unknown) Lumbar: L1 FRSR (uni ts unknown) (unknown) (unknown) (no date) (unknown) (unknown) Lung cancer (units unknown) (unknown) (unknown) (no date) (unknown) (unknown) Managing IBS a nd pernicious anemia with supplementation and dietary (units unknown) (unknown) (unknown) (no date) (unknown) (unknown) Medical Histor y (Updated 01/26/23 @ 11:31 by Laura Parikh DO) (units unknown) (unknown) (unknown) (no date) (unknown) (unknown) Medications (units unknown) (unknown) (unknown) (no date) (unknown) (unknown) Medications: (units unknown) (unknown) (unknown) (no date) (unknown) (unknown) Mother d Diabetes mellitus (units unknown) (unknown) (unknown) (no date) (unknown) (unknown) Neuro: alert a nd oriented to person and situation (units unknown) (unknown) (unknown) (no date) (unknown) (unknown) New (units unknown) (unknown) (unknown) (no date) (unknown) (unknown) OMM Procedure Notes: (units unknown) (unknown) (unknown) (no date) (unknown) (unknown) OMT with PH an d avoiding R distal LE, focus on autonomic nervous system today (units unknown) (unknown) (unknown) (no date) (unknown) (unknown) Obesity (units unknown) (unknown) (unknown) (no date) (unknown) (unknown) Office Procedures (u nits unknown) (unknown) (unknown) (no date) (unknown) (unknown) Orders (units unknown) (unknown) (unknown) (no date) (unknown) (unknown) Orders: (units unknown) (unknown) (unknown) (no date) (unknown) (unknown) Osteoarthritis (2011) (units unknown) (unknown) (unknown) (no date) (unknown) (unknown) Osteopathic Structural Exam: (units unknown) (unknown) (unknown) (no date) (unknown) (unknown) Osteoporosis o f lumbar spine (units unknown) (unknown) (unknown) (no date) (unknown) (unknown) Osteoporosis (units unknown) (unknown) (unknown) (no date) (unknown) (unknown) Other Menstrua l Period: Postmenopausal (units unknown) (unknown) (unknown) (no date) (unknown) (unknown) Oxygen Deliver y Method room air (units unknown) (unknown) (unknown) (no date) (unknown) (unknown) PFSH (units unknown) (unknown) (unknown) (no date) (unknown) (unknown) PH, cranial, G OT, BLT, MFR (units unknown) (unknown) (unknown) (no date) (unknown) (unknown) POC Urine Dip Today R30.0 - Dysuria (units unknown) (unknown) (unknown) (no date) (unknown) (unknown) PTSD (post-tra umatic stress disorder) (units unknown) (unknown) (unknown) (no date) (unknown) (unknown) Patient: Whitley Oakes Latasha MR#: M (units unknown) (unknown) (unknown) (no date) (unknown) (unknown) Pelvic somatic dysfunction (units unknown) (unknown) (unknown) (no date) (unknown) (unknown) Pelvis: L ant (units unknown) (unknown) (unknown) (no date) (unknown) (unknown) Pernicious anemia (u nits unknown) (unknown) (unknown) (no date) (unknown) (unknown) Personality disorder (units unknown) (unknown) (unknown) (no date) (unknown) (unknown) Plan (units unknown) (unknown) (unknown) (no date) (unknown) (unknown) Position Sitting (un its unknown) (unknown) (unknown) (no date) (unknown) (unknown) Psych: well ke mpt, speech and movement normal, normal affect (units unknown) (unknown) (unknown) (no date) (unknown) (unknown) Pulse 111 H (units unknown) (unknown) (unknown) (no date) (unknown) (unknown) Pulse Oximetry (%) 98 (units unknown) (unknown) (unknown) (no date) (unknown) (unknown) Pulse Source Monitor (units unknown) (unknown) (unknown) (no date) (unknown) (unknown) [id number] #1 mL 08/04/22 [Rx Confirmed 01/26/23] (units unknown) (unknown) (unknown) (no date) (unknown) (unknown) Qualified Code (s): K58.2 - Mixed irritable bowel syndrome (units unknown) (unknown) (unknown) (no date) (unknown) (unknown) Qualifiers: (units unknown) (unknown) (unknown) (no date) (unknown) (unknown) Quality Reporting (u nits unknown) (unknown) (unknown) (no date) (unknown) (unknown) RLS (restless legs syndrome) (units unknown) (unknown) (unknown) (no date) (unknown) (unknown) Reason For Visit (un its unknown) (unknown) (unknown) (no date) (unknown) (unknown) Resp: normal e ffort, able to speak in complete sentences (units unknown) (unknown) (unknown) (no date) (unknown) (unknown) Results (units unknown) (unknown) (unknown) (no date) (unknown) (unknown) Ribcage: R2-3 post, b/l 12 exh (units unknown) (unknown) (unknown) (no date) (unknown) (unknown) Right shoulder pain (units unknown) (unknown) (unknown) (no date) (unknown) (unknown) SWELLING (units unknown) (unknown) (unknown) (no date) (unknown) (unknown) Sacral region somatic dysfunction (units unknown) (unknown) (unknown) (no date) (unknown) (unknown) Sacroiliitis (2012) (units unknown) (unknown) (unknown) (no date) (unknown) (unknown) Sacrum: b/l F, L>R SI restr (units unknown) (unknown) (unknown) (no date) (unknown) (unknown) Seborrheic keratosis (units unknown) (unknown) (unknown) (no date) (unknown) (unknown) Seeing podiatr y, getting splint re foot fracture. Still not weighted, will re (units unknown) (unknown) (unknown) (no date) (unknown) (unknown) Shoulders and neck worse having to use wheel chair (units unknown) (unknown) (unknown) (no date) (unknown) (unknown) Signed By: (units unknown) (unknown) (unknown) (no date) (unknown) (unknown) Sister d Diabetes mellitus (units unknown) (unknown) (unknown) (no date) (unknown) (unknown) Smoking Status : Former smoker (units unknown) (unknown) (unknown) (no date) (unknown) (unknown) Status post colonoscopy (09/2019) (units unknown) (unknown) (unknown) (no date) (unknown) (unknown) Status post endoscopy (12/2019) (units unknown) (unknown) (unknown) (no date) (unknown) (unknown) Status post reduction mammoplasty (07/2010) (units unknown) (unknown) (unknown) (no date) (unknown) (unknown) Status: Acute (units unknown) (unknown) (unknown) (no date) (unknown) (unknown) Status: Chronic (uni ts unknown) (unknown) (unknown) (no date) (unknown) (unknown) Stroke (units unknown) (unknown) (unknown) (no date) (unknown) (unknown) Substance abuse (uni ts unknown) (unknown) (unknown) (no date) (unknown) (unknown) Surgical Histo ry (Updated 01/18/20 @ 15:38 by Summer Price DO) (units unknown) (unknown) (unknown) (no date) (unknown) (unknown) Temp 96.8 F L (units unknown) (unknown) (unknown) (no date) (unknown) (unknown) Temp Source Te mporal Artery Scan (units unknown) (unknown) (unknown) (no date) (unknown) (unknown) This note may have been all or partially generated using voice recognition (units unknown) (unknown) (unknown) (no date) (unknown) (unknown) Thoracic regio n somatic dysfunction (units unknown) (unknown) (unknown) (no date) (unknown) (unknown) 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, T7 FRSR (units unknown) (unknown) (unknown) (no date) (unknown) (unknown) Time Coding Mi nutes Spent: (must be on same date of service/appointment) (units unknown) (unknown) (unknown) (no date) (unknown) (unknown) Time Spent (units unknown) (unknown) (unknown) (no date) (unknown) (unknown) Tinnitus (units unknown) (unknown) (unknown) (no date) (unknown) (unknown) Tobacco + Subs tance Use (units unknown) (unknown) (unknown) (no date) (unknown) (unknown) Tobacco Status (unit s unknown) (unknown) (unknown) (no date) (unknown) (unknown) Total visit ti me apart from OMT 31 minutes today, including 20 minutes face to (units unknown) (unknown) (unknown) (no date) (unknown) (unknown) Tubular adenom a of colon (12/2014) (units unknown) (unknown) (unknown) (no date) (unknown) (unknown) Upper extremit ies: b/l scapulothoracic restr and levator scap htn (units unknown) (unknown) (unknown) (no date) (unknown) (unknown) Urine Appearan ce Clear Last Edit by Lani Benavides CMA on 01/26/23 11:15 (units unknown) (unknown) (unknown) (no date) (unknown) (unknown) Urine Bilirubi n Negative Last Edit by Lani Benavides CMA on 01/26/23 11:15 (units unknown) (unknown) (unknown) (no date) (unknown) (unknown) Urine Blood +- 10 Ashish/uL Last Edit by Lani Benavides CMA on 01/26/23 11:15 (units unknown) (unknown) (unknown) (no date) (unknown) (unknown) Urine Color Ye llow Last Edit by Lani Benavides, [facility] on 01/26/23 11:15 (units unknown) (unknown) (unknown) (no date) (unknown) (unknown) Urine Dipstick (unit s unknown) (unknown) (unknown) (no date) (unknown) (unknown) Urine Glucose Negative mg/dL Last Edit by Lani Benavides, [facility] on 01/26/23 11 (units unknown) (unknown) (unknown) (no date) (unknown) (unknown) Urine Ketones Negative Last Edit by Lani Benavides, [facility] on 01/26/23 11:15 (units unknown) (unknown) (unknown) (no date) (unknown) (unknown) Urine Leukocyt e Esterase Negative Last Edit by Lani Benavides, [facility] on 01/26 (units unknown) (unknown) (unknown) (no date) (unknown) (unknown) Urine Nitrate Negative Last Edit by Lani Benavides, [facility] on 01/26/23 11:15 (units unknown) (unknown) (unknown) (no date) (unknown) (unknown) Urine Protein Negative Last Edit by Lani Benavides, [facility] on 01/26/23 11:15 (units unknown) (unknown) (unknown) (no date) (unknown) (unknown) Urine Specific [place] 1.010 Last Edit by Lani Benavides, [facility] on 01/26/23 (units unknown) (unknown) (unknown) (no date) (unknown) (unknown) Urine Urobilin ogen - 0.2 mg/dL Last Edit by Lani Benavides [facility] on units unknown) (unknown) (unknown) (no date) (unknown) (unknown) Urine pH 7.0 L ast Edit by Lani Benavides, [facility] on 01/26/23 11:15 (units unknown) (unknown) (unknown) (no date) (unknown) (unknown) Visit Reasons: OMT #2 (units unknown) (unknown) (unknown) (no date) (unknown) (unknown) Vitals (units unknown) (unknown) (unknown) (no date) (unknown) (unknown) Vitamin D 25 H ydroxy (D3) Today D51.0 - Vitamin B12 deficiency anemia due to (units unknown) (unknown) (unknown) (no date) (unknown) (unknown) Albert's (units unknown) (unknown) (unknown) (no date) (unknown) (unknown) [Rx Confirmed 01/26/23] (units unknown) (unknown) (unknown) (no date) (unknown) (unknown) acetaminophen 300 mg-codeine 30 mg tablet 1 tab PO Q6H PRN pain #5 tabs 11/17/22 (units unknown) (unknown) (unknown) (no date) (unknown) (unknown) acute distress , has crutch for ambulation (units unknown) (unknown) (unknown) (no date) (unknown) (unknown) albuterol [ALBUTEROL] Allergy (Unknown, Verified 01/26/23 11:45) (units unknown) (unknown) (unknown) (no date) (unknown) (unknown) bladder pain (units unknown) (unknown) (unknown) (no date) (unknown) (unknown) cholecalcifero l (vitamin D3) 250 mcg (10,000 unit) tablet 10,000 tab PO QDAY ##0 (units unknown) (unknown) (unknown) (no date) (unknown) (unknown) clonazepam 1 m g tablet 0.5 mg PO BID PRN anxiety #10 tabs 02/19/22 [Rx Confirmed (units unknown) (unknown) (unknown) (no date) (unknown) (unknown) congestion and stomach problems (units unknown) (unknown) (unknown) (no date) (unknown) (unknown) coordinating care. ( units unknown) (unknown) (unknown) (no date) (unknown) (unknown) cyanocobalamin (vitamin B-12) 1,000 mcg IM ONCE 1 mL 0RF D51.0 - Vitamin B12 (units unknown) (unknown) (unknown) (no date) (unknown) (unknown) cyanocobalamin (vitamin B-12) 1,000 mcg/mL injection solution 1,000 mcg IM (units unknown) (unknown) (unknown) (no date) (unknown) (unknown) deficiency ane mi due to intrinsic factor deficiency, E53.9 - Vitamin B (units unknown) (unknown) (unknown) (no date) (unknown) (unknown) deficiency, E5 5.9 - Vitamin D deficiency, unspecified, E61.1 - Iron deficiency, (units unknown) (unknown) (unknown) (no date) (unknown) (unknown) deficiency, unspecified (units unknown) (unknown) (unknown) (no date) (unknown) (unknown) dexamethasone Adverse Reaction (Severe, Verified 01/26/23 11:45) (units unknown) (unknown) (unknown) (no date) (unknown) (unknown) did comprehens cassy stool analysis through [facility] [employer] [facility] too (units unknown) (unknown) (unknown) (no date) (unknown) (unknown) did have SIBO breath through [facility] but unable to get results because was Dr (units unknown) (unknown) (unknown) (no date) (unknown) (unknown) eval after nex t ortho f/u. (units unknown) (unknown) (unknown) (no date) (unknown) (unknown) face on histor y, exam, and counseling, and 11 minutes reviewing, charting, and (units unknown) (unknown) (unknown) (no date) (unknown) (unknown) folic acid 5 m g PO 04/08/22 [History Confirmed 01/26/23] (units unknown) (unknown) (unknown) (no date) (unknown) (unknown) folic acid (units unknown) (unknown) (unknown) (no date) (unknown) (unknown) gastritis flares (un its unknown) (unknown) (unknown) (no date) (unknown) (unknown) gentle iron PO 12/09/21 [History Confirmed 01/26/23] (units unknown) (unknown) (unknown) (no date) (unknown) (unknown) gluten [GLUTEN ] Allergy (Unknown, Verified 01/26/23 11:45) (units unknown) (unknown) (unknown) (no date) (unknown) (unknown) gluten free vegan (u nits unknown) (unknown) (unknown) (no date) (unknown) (unknown) grass pollen A llergy (Severe, Verified 01/26/23 11:45) (units unknown) (unknown) (unknown) (no date) (unknown) (unknown) have occurred. If there are any questions, please contact the Medical Records (units unknown) (unknown) (unknown) (no date) (unknown) (unknown) hydromorphone [HYDROMORPHONE] Allergy (Mild, Verified 01/26/23 11:45) (units unknown) (unknown) (unknown) (no date) (unknown) (unknown) hydroxocobalam in 1,000 mcg/mL intramuscular solution 500 mcg (0.5 mL) IM BID #30 (units unknown) (unknown) (unknown) (no date) (unknown) (unknown) insulin syringe-needle U-100 1 mL 30 gauge x 1/2' (BD Insulin Syringe Ultra (units unknown) (unknown) (unknown) (no date) (unknown) (unknown) intrinsic fact or deficiency (units unknown) (unknown) (unknown) (no date) (unknown) (unknown) intrinsic fact or deficiency, E53.9 - Vitamin B deficiency, unspecified (units unknown) (unknown) (unknown) (no date) (unknown) (unknown) intrinsic fact or deficiency, E55.9 - Vitamin D deficiency, unspecified, E61.1 (units unknown) (unknown) (unknown) (no date) (unknown) (unknown) iodine and osmany enium for thyroid, rather than taking thyroid (units unknown) (unknown) (unknown) (no date) (unknown) (unknown) k2 with vit D PO 12/09/21 [History Confirmed 01/26/23] (units unknown) (unknown) (unknown) (no date) (unknown) (unknown) lithium [LITHI UM] Allergy (Unknown, Verified 01/26/23 11:45) (units unknown) (unknown) (unknown) (no date) (unknown) (unknown) loratadine 10 mg tablet (Claritin) 10 mg PO DAILY PRN allergic symptoms #90 tabs (units unknown) (unknown) (unknown) (no date) (unknown) (unknown) mL 11/27/22 [R x Confirmed 01/26/23] (units unknown) (unknown) (unknown) (no date) (unknown) (unknown) magnesium (units unknown) (unknown) (unknown) (no date) (unknown) (unknown) may occur. Occasional wrong-word or 'sound-alike' substitutions may have (units unknown) (unknown) (unknown) (no date) (unknown) (unknown) modifications. Labs today and B12 injection. (units unknown) (unknown) (unknown) (no date) (unknown) (unknown) occurred due t o the inherent limitations of voice recognition software. Please (units unknown) (unknown) (unknown) (no date) (unknown) (unknown) ondansetron HC l 4 mg tablet (Zofran) 4 mg PO Q4HP PRN #20 tabs 11/25/17 [Rx (units unknown) (unknown) (unknown) (no date) (unknown) (unknown) per OSE. (units unknown) (unknown) (unknown) (no date) (unknown) (unknown) polyneuropathies (un its unknown) (unknown) (unknown) (no date) (unknown) (unknown) read the note carefully and recognize, using context, where these substitutions (units unknown) (unknown) (unknown) (no date) (unknown) (unknown) software. Alth ough every effort is made to edit content, hand cell tuber errors (units unknown) (unknown) (unknown) (no date) (unknown) (unknown) tachycardia (units unknown) (unknown) (unknown) (no date) (unknown) (unknown) takes: (units unknown) (unknown) (unknown) (no date) (unknown) (unknown) tizanidine 4 m g tablet 4 mg PO Q8H PRN muscle spasticity #20 tabs 01/05/23 [Rx (units unknown) (unknown) (unknown) (no date) (unknown) (unknown) vitamin C / ir on 125mg plant based (units unknown) (unknown) (unknown) (no date) (unknown) (unknown) vitamin D / K2 33858/100 (units unknown) (unknown) (unknown) (no date) (unknown) (unknown) vitamin c 1000 mg PO 12/09/21 [History Confirmed 01/26/23] (units unknown) (unknown) (unknown) (no date) (unknown) (unknown) wants ongoing B12 and needles, hoping to get a formulation without additive (units unknown) (unknown) Result panel 34 (unknown) (no date) (unknown) (unknown) (no value) (units unknown) (unknown) (unknown) (no date) (unknown) (unknown) (1) Pathologic al fracture, right foot, initial encounter for fracture: (units unknown) (unknown) (unknown) (no date) (unknown) (unknown) (10) Sacral re gion somatic dysfunction: (units unknown) (unknown) (unknown) (no date) (unknown) (unknown) (11) Somatic dysfunction of abdominal region: (units unknown) (unknown) (unknown) (no date) (unknown) (unknown) (12) Somatic dysfunction of rib region: (units unknown) (unknown) (unknown) (no date) (unknown) (unknown) (13) Somatic dysfunction of lower extremity: (units unknown) (unknown) (unknown) (no date) (unknown) (unknown) (14) Somatic dysfunction of upper extremity: (units unknown) (unknown) (unknown) (no date) (unknown) (unknown) (2) IBS (irrit able bowel syndrome): (units unknown) (unknown) (unknown) (no date) (unknown) (unknown) (3) Vitamin D deficiency disease: (units unknown) (unknown) (unknown) (no date) (unknown) (unknown) (4) Pernicious anemia: (units unknown) (unknown) (unknown) (no date) (unknown) (unknown) (5) Cranial so matic dysfunction: (units unknown) (unknown) (unknown) (no date) (unknown) (unknown) (6) Cervical s omatic dysfunction: (units unknown) (unknown) (unknown) (no date) (unknown) (unknown) (7) Thoracic r egion somatic dysfunction: (units unknown) (unknown) (unknown) (no date) (unknown) (unknown) (8) Lumbar reg ion somatic dysfunction: (units unknown) (unknown) (unknown) (no date) (unknown) (unknown) (9) Pelvic zoey atic dysfunction: (units unknown) (unknown) (unknown) (no date) (unknown) (unknown) (units unknown) (unknown) (unknown) (no date) (unknown) (unknown) [id number] (units unknown) (unknown) (unknown) (no date) (unknown) (unknown) 12/26/17 [Hist ory Confirmed 01/26/23] (units unknown) (unknown) (unknown) (no date) (unknown) (unknown) 01/26/23 (units unknown) (unknown) (unknown) (no date) (unknown) (unknown) 01/26/23] (units unknown) (unknown) (unknown) (no date) (unknown) (unknown) 03/25/22 [Rx Confirmed 01/26/23] (units unknown) (unknown) (unknown) (no date) (unknown) (unknown) 1. Little inte rest or pleasure in doing things: not at all (units unknown) (unknown) (unknown) (no date) (unknown) (unknown) 10:59 (units unknown) (unknown) (unknown) (no date) (unknown) (unknown) 11:15 (units unknown) (unknown) (unknown) (no date) (unknown) (unknown) 2. Feeling bailee n, depressed, or hopeless: several days (units unknown) (unknown) (unknown) (no date) (unknown) (unknown) 23 (units unknown) (unknown) (unknown) (no date) (unknown) (unknown) 3. Trouble fal ling or staying asleep, or sleeping too much: nearly every day (units unknown) (unknown) (unknown) (no date) (unknown) (unknown) 4. Feeling tir ed or having little energy: nearly every day (units unknown) (unknown) (unknown) (no date) (unknown) (unknown) 5. Poor appeti te or overeating: not at all (units unknown) (unknown) (unknown) (no date) (unknown) (unknown) 6. Feeling bad about yourself - or that you are a failure or have let yourself (units unknown) (unknown) (unknown) (no date) (unknown) (unknown) 67 yo female presents today for OMT #2 and B12 injection (units unknown) (unknown) (unknown) (no date) (unknown) (unknown) 7. Trouble concentrating on things, such as reading the newspaper or watching (units unknown) (unknown) (unknown) (no date) (unknown) (unknown) 7th day Confucianism (u nits unknown) (unknown) (unknown) (no date) (unknown) (unknown) 8. Moving or speaking so slowly that other people could have noticed? - Or the (units unknown) (unknown) (unknown) (no date) (unknown) (unknown) 9. Thoughts th at you would be better off or of hurting yourself in some (units unknown) (unknown) (unknown) (no date) (unknown) (unknown) :15 (units unknown) (unknown) (unknown) (no date) (unknown) (unknown) Abdomen: magaly c ganglion restr (units unknown) (unknown) (unknown) (no date) (unknown) (unknown) Accompanied by : (units unknown) (unknown) (unknown) (no date) (unknown) (unknown) Acute pain of left shoulder (units unknown) (unknown) (unknown) (no date) (unknown) (unknown) Adult (CMS 138/2/22/69/61/64/16 5) (units unknown) (unknown) (unknown) (no date) (unknown) (unknown) Age/Sex: 67 / F Date of Service: (units unknown) (unknown) (unknown) (no date) (unknown) (unknown) Allergic react ion to grass pollen (units unknown) (unknown) (unknown) (no date) (unknown) (unknown) Allergic to cats (un its unknown) (unknown) (unknown) (no date) (unknown) (unknown) Allergies (units unknown) (unknown) (unknown) (no date) (unknown) (unknown) [place] [address] (units unknown) (unknown) (unknown) (no date) (unknown) (unknown) Anesthesia (units unknown) (unknown) (unknown) (no date) (unknown) (unknown) Angina pectoris (uni ts unknown) (unknown) (unknown) (no date) (unknown) (unknown) Ankle pain, ch ronic (2014) (units unknown) (unknown) (unknown) (no date) (unknown) (unknown) Ankle pain, chronic (units unknown) (unknown) (unknown) (no date) (unknown) (unknown) Anxiety (units unknown) (unknown) (unknown) (no date) (unknown) (unknown) Assessment + Plan (u nits unknown) (unknown) (unknown) (no date) (unknown) (unknown) Attending Dr: Laura Parikh D.O. (units unknown) (unknown) (unknown) (no date) (unknown) (unknown) B12 (Cyanocoba l) Injection Today D51.0 - Vitamin B12 deficiency anemia due to (units unknown) (unknown) (unknown) (no date) (unknown) (unknown) B12 (IM after failing high dose sublingual) for occipital neuralgia, as well as (units unknown) (unknown) (unknown) (no date) (unknown) (unknown) BMI Refused (units unknown) (unknown) (unknown) (no date) (unknown) (unknown) BMI Screening: Yes BMI screening not done Reason: Yes Patient refused (units unknown) (unknown) (unknown) (no date) (unknown) (unknown) BP 170/88 H (units unknown) (unknown) (unknown) (no date) (unknown) (unknown) Basic Metaboli c Panel Today D51.0 - Vitamin B12 deficiency anemia due to (units unknown) (unknown) (unknown) (no date) (unknown) (unknown) Becoming easil y annoyed or irritable: 1 = Several days (units unknown) (unknown) (unknown) (no date) (unknown) (unknown) Being so restl ess that it is hard to sit still: 0 = Not at all (units unknown) (unknown) (unknown) (no date) (unknown) (unknown) Billing- OMT Therapy: OMT 9-10 Body Regions- [id number] (units unknown) (unknown) (unknown) (no date) (unknown) (unknown) Bipolar disorder (un its unknown) (unknown) (unknown) (no date) (unknown) (unknown) Blood Pressure Location Lt brachial (units unknown) (unknown) (unknown) (no date) (unknown) (unknown) Brain cancer (units unknown) (unknown) (unknown) (no date) (unknown) (unknown) Broke R foot, very painful, still not weight bearing. Seeing ortho and podiatry. (units unknown) (unknown) (unknown) (no date) (unknown) (unknown) Cervical somat ic dysfunction (units unknown) (unknown) (unknown) (no date) (unknown) (unknown) Cervical: C4 FRSL ? (units unknown) (unknown) (unknown) (no date) (unknown) (unknown) Chicken pox (units unknown) (unknown) (unknown) (no date) (unknown) (unknown) Chief Complaint (uni ts unknown) (unknown) (unknown) (no date) (unknown) (unknown) Chief Complain t: multiple pain complaints (units unknown) (unknown) (unknown) (no date) (unknown) (unknown) Child Age: 34 Hx of appendectomy (units unknown) (unknown) (unknown) (no date) (unknown) (unknown) Child Age: 37 Penicillin allergy (units unknown) (unknown) (unknown) (no date) (unknown) (unknown) Child Age: 46 Hay fever (units unknown) (unknown) (unknown) (no date) (unknown) (unknown) 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 (units unknown) (unknown) (unknown) (no date) (unknown) (unknown) Chronic left-s ided thoracic back pain (units unknown) (unknown) (unknown) (no date) (unknown) (unknown) Complete Blood Count NO DIFF Today D51.0 - Vitamin B12 deficiency anemia due to (units unknown) (unknown) (unknown) (no date) (unknown) (unknown) 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 () (units unknown) (unknown) (unknown) (no date) (unknown) (unknown) Compression fr acture of body of thoracic vertebra () (units unknown) (unknown) (unknown) (no date) (unknown) (unknown) Confirmed 01/26/23] (units unknown) (unknown) (unknown) (no date) (unknown) (unknown) Cranial somati c dysfunction (units unknown) (unknown) (unknown) (no date) (unknown) (unknown) DAIRY Allergy (Intermediate, Uncoded 01/26/23 11:45) (units unknown) (unknown) (unknown) (no date) (unknown) (unknown) : 4 Acct:[id number] (units unknown) (unknown) (unknown) (no date) (unknown) (unknown) Depression (09/21/14) (units unknown) (unknown) (unknown) (no date) (unknown) (unknown) Depression (units unknown) (unknown) (unknown) (no date) (unknown) (unknown) Depression/Bip olar (159/160/161/169/177 ) (units unknown) (unknown) (unknown) (no date) (unknown) (unknown) Dept at . (units unknown) (unknown) (unknown) (no date) (unknown) (unknown) Details: (units unknown) (unknown) (unknown) (no date) (unknown) (unknown) Disabled Katharine ng Permit #1 ea 04/08/22 [Rx Confirmed 03/21/23] (units unknown) (unknown) (unknown) (no date) (unknown) (unknown) Documented By: Laura Parikh D.O. 01/26/23 1059 (units unknown) (unknown) (unknown) (no date) (unknown) (unknown) Draft (units unknown) (unknown) (unknown) (no date) (unknown) (unknown) Due for PCV13, TDaP and Shingrix. (units unknown) (unknown) (unknown) (no date) (unknown) (unknown) E87.6 - Hypokalemia (units unknown) (unknown) (unknown) (no date) (unknown) (unknown) Environmental allergies (units unknown) (unknown) (unknown) (no date) (unknown) (unknown) Esophageal stricture (units unknown) (unknown) (unknown) (no date) (unknown) (unknown) Esophagitis (units unknown) (unknown) (unknown) (no date) (unknown) (unknown) Exam Narrative (unit s unknown) (unknown) (unknown) (no date) (unknown) (unknown) Exam Narrative: (uni ts unknown) (unknown) (unknown) (no date) (unknown) (unknown) Exam (units unknown) (unknown) (unknown) (no date) (unknown) (unknown) Family History (Updated 06/08/18 @ 12:37 by Rabia Jacob) (units unknown) (unknown) (unknown) (no date) (unknown) (unknown) Family Practic e Office Visit (units unknown) (unknown) (unknown) (no date) (unknown) (unknown) Feeling afraid as if something awful might happen: 0 = Not at all (units unknown) (unknown) (unknown) (no date) (unknown) (unknown) Feeling nervou s, anxious, or on edge: 1 = Several days (units unknown) (unknown) (unknown) (no date) (unknown) (unknown) Ferritin Today D51.0 - Vitamin B12 deficiency anemia due to intrinsic factor (units unknown) (unknown) (unknown) (no date) (unknown) (unknown) Fibromyalgia (units unknown) (unknown) (unknown) (no date) (unknown) (unknown) [facility] (units unknown) (unknown) (unknown) (no date) (unknown) (unknown) Fine) See Rx Instructions .Route .COMPLEX #200 ea 01/15/23 [Rx Confirmed (units unknown) (unknown) (unknown) (no date) (unknown) (unknown) Foot pain (2011) (un its unknown) (unknown) (unknown) (no date) (unknown) (unknown) ROSA-7 (units unknown) (unknown) (unknown) (no date) (unknown) (unknown) Gastropathy (units unknown) (unknown) (unknown) (no date) (unknown) (unknown) General: pleas ant, cooperative, +central adiposity, sitting comfortably in no (units unknown) (unknown) (unknown) (no date) (unknown) (unknown) Gets relief with OMT (units unknown) (unknown) (unknown) (no date) (unknown) (unknown) Grandmother Di abetes mellitus (units unknown) (unknown) (unknown) (no date) (unknown) (unknown) HPI (units unknown) (unknown) (unknown) (no date) (unknown) (unknown) Hayfever (units unknown) (unknown) (unknown) (no date) (unknown) (unknown) Head: b/l OM r estr, SBS compr (units unknown) (unknown) (unknown) (no date) (unknown) (unknown) Health Managem ent reviewed with patient: Yes (units unknown) (unknown) (unknown) (no date) (unknown) (unknown) Health Management (u nits unknown) (unknown) (unknown) (no date) (unknown) (unknown) Heart disease (units unknown) (unknown) (unknown) (no date) (unknown) (unknown) Height 5 ft 3.5 in ( units unknown) (unknown) (unknown) (no date) (unknown) (unknown) Hemorrhoids (units unknown) (unknown) (unknown) (no date) (unknown) (unknown) Hiatal hernia (units unknown) (unknown) (unknown) (no date) (unknown) (unknown) High cholesterol (un its unknown) (unknown) (unknown) (no date) (unknown) (unknown) History of candice betes mellitus (units unknown) (unknown) (unknown) (no date) (unknown) (unknown) History of fundoplication (units unknown) (unknown) (unknown) (no date) (unknown) (unknown) History of rep air of hiatal hernia (11/2011) (units unknown) (unknown) (unknown) (no date) (unknown) (unknown) History of tonsillectomy (1971) (units unknown) (unknown) (unknown) (no date) (unknown) (unknown) Hives (units unknown) (unknown) (unknown) (no date) (unknown) (unknown) Hypertension (units unknown) (unknown) (unknown) (no date) (unknown) (unknown) Hypothyroidism (unit s unknown) (unknown) (unknown) (no date) (unknown) (unknown) IBS (irritable bowel syndrome) (units unknown) (unknown) (unknown) (no date) (unknown) (unknown) 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 unknown) (unknown) (unknown) (no date) (unknown) (unknown) If you checked off any problems, how difficult have these problems made it for (units unknown) (unknown) (unknown) (no date) (unknown) (unknown) Informed conse nt given: Yes (units unknown) (unknown) (unknown) (no date) (unknown) (unknown) Intake Note: (units unknown) (unknown) (unknown) (no date) (unknown) (unknown) Intake perform ed by: Lani Benavides (units unknown) (unknown) (unknown) (no date) (unknown) (unknown) Intake (units unknown) (unknown) (unknown) (no date) (unknown) (unknown) Intake- Kasie carmichael Staff (units unknown) (unknown) (unknown) (no date) (unknown) (unknown) Iron deficienc y, E87.6 - Hypokalemia (units unknown) (unknown) (unknown) (no date) (unknown) (unknown) Irritable julien l syndrome type: with both diarrhea and constipation (units unknown) (unknown) (unknown) (no date) (unknown) (unknown) Last Menstural Cycle + Details (units unknown) (unknown) (unknown) (no date) (unknown) (unknown) Leg worse compensating for foot positions (units unknown) (unknown) (unknown) (no date) (unknown) (unknown) Liver cancer (units unknown) (unknown) (unknown) (no date) (unknown) (unknown) Loc: [facility] (units unknown) (unknown) (unknown) (no date) (unknown) (unknown) Lower extremit ies: R FH ant (units unknown) (unknown) (unknown) (no date) (unknown) (unknown) Lumbar facet arthropathy (2014) (units unknown) (unknown) (unknown) (no date) (unknown) (unknown) Lumbar region somatic dysfunction (units unknown) (unknown) (unknown) (no date) (unknown) (unknown) Lumbar: L1 FRSR (uni ts unknown) (unknown) (unknown) (no date) (unknown) (unknown) Lung cancer (units unknown) (unknown) (unknown) (no date) (unknown) (unknown) Managing IBS a nd pernicious anemia with supplementation and dietary (units unknown) (unknown) (unknown) (no date) (unknown) (unknown) Medical Histor y (Updated 01/26/23 @ 11:31 by Laura Parikh DO) (units unknown) (unknown) (unknown) (no date) (unknown) (unknown) Medications (units unknown) (unknown) (unknown) (no date) (unknown) (unknown) Medications: (units unknown) (unknown) (unknown) (no date) (unknown) (unknown) Mother d Diabetes mellitus (units unknown) (unknown) (unknown) (no date) (unknown) (unknown) Neuro: alert a nd oriented to person and situation (units unknown) (unknown) (unknown) (no date) (unknown) (unknown) New (units unknown) (unknown) (unknown) (no date) (unknown) (unknown) Not being able to stop or control worryin = Several days (units unknown) (unknown) (unknown) (no date) (unknown) (unknown) OMM Procedure Notes: (units unknown) (unknown) (unknown) (no date) (unknown) (unknown) OMT with PH an d avoiding R distal LE, focus on autonomic nervous system today (units unknown) (unknown) (unknown) (no date) (unknown) (unknown) Obesity (units unknown) (unknown) (unknown) (no date) (unknown) (unknown) Office Procedures (u nits unknown) (unknown) (unknown) (no date) (unknown) (unknown) Orders (units unknown) (unknown) (unknown) (no date) (unknown) (unknown) Orders: (units unknown) (unknown) (unknown) (no date) (unknown) (unknown) Osteoarthritis (2011) (units unknown) (unknown) (unknown) (no date) (unknown) (unknown) Osteopathic Structural Exam: (units unknown) (unknown) (unknown) (no date) (unknown) (unknown) Osteoporosis o f lumbar spine (units unknown) (unknown) (unknown) (no date) (unknown) (unknown) Osteoporosis (units unknown) (unknown) (unknown) (no date) (unknown) (unknown) Other Menstrua l Period: Postmenopausal (units unknown) (unknown) (unknown) (no date) (unknown) (unknown) Over the last 2 weeks, how often have you been bothered by any of the following (units unknown) (unknown) (unknown) (no date) (unknown) (unknown) Oxygen Deliver y Method room air (units unknown) (unknown) (unknown) (no date) (unknown) (unknown) PFSH (units unknown) (unknown) (unknown) (no date) (unknown) (unknown) PH, cranial, G OT, BLT, MFR (units unknown) (unknown) (unknown) (no date) (unknown) (unknown) PHQ-9 (units unknown) (unknown) (unknown) (no date) (unknown) (unknown) POC Urine Dip Today R30.0 - Dysuria (units unknown) (unknown) (unknown) (no date) (unknown) (unknown) PTSD (post-tra umatic stress disorder) (units unknown) (unknown) (unknown) (no date) (unknown) (unknown) Patient: Whitley Oakes MR#: M (units unknown) (unknown) (unknown) (no date) (unknown) (unknown) Pelvic somatic dysfunction (units unknown) (unknown) (unknown) (no date) (unknown) (unknown) Pelvis: L ant (units unknown) (unknown) (unknown) (no date) (unknown) (unknown) Pernicious anemia (u nits unknown) (unknown) (unknown) (no date) (unknown) (unknown) Personality disorder (units unknown) (unknown) (unknown) (no date) (unknown) (unknown) Plan (units unknown) (unknown) (unknown) (no date) (unknown) (unknown) Position Sitting (un its unknown) (unknown) (unknown) (no date) (unknown) (unknown) Psych: well ke mpt, speech and movement normal, normal affect (units unknown) (unknown) (unknown) (no date) (unknown) (unknown) Pulse 111 H (units unknown) (unknown) (unknown) (no date) (unknown) (unknown) Pulse Oximetry (%) 98 (units unknown) (unknown) (unknown) (no date) (unknown) (unknown) Pulse Source Monitor (units unknown) (unknown) (unknown) (no date) (unknown) (unknown) [id number] #1 mL 08/04/22 [Rx Confirmed 01/26/23] (units unknown) (unknown) (unknown) (no date) (unknown) (unknown) Qualified Code (s): K58.2 - Mixed irritable bowel syndrome (units unknown) (unknown) (unknown) (no date) (unknown) (unknown) Qualifiers: (units unknown) (unknown) (unknown) (no date) (unknown) (unknown) Quality Reporting (u nits unknown) (unknown) (unknown) (no date) (unknown) (unknown) Questionnaires (unit s unknown) (unknown) (unknown) (no date) (unknown) (unknown) RLS (restless legs syndrome) (units unknown) (unknown) (unknown) (no date) (unknown) (unknown) Reason For Visit (un its unknown) (unknown) (unknown) (no date) (unknown) (unknown) Resp: normal e ffort, able to speak in complete sentences (units unknown) (unknown) (unknown) (no date) (unknown) (unknown) Results (units unknown) (unknown) (unknown) (no date) (unknown) (unknown) Ribcage: R2-3 post, b/l 12 exh (units unknown) (unknown) (unknown) (no date) (unknown) (unknown) Right shoulder pain (units unknown) (unknown) (unknown) (no date) (unknown) (unknown) SWELLING (units unknown) (unknown) (unknown) (no date) (unknown) (unknown) Sacral region somatic dysfunction (units unknown) (unknown) (unknown) (no date) (unknown) (unknown) Sacroiliitis (2012) (units unknown) (unknown) (unknown) (no date) (unknown) (unknown) Sacrum: b/l F, L>R SI restr (units unknown) (unknown) (unknown) (no date) (unknown) (unknown) Seborrheic keratosis (units unknown) (unknown) (unknown) (no date) (unknown) (unknown) Seeing podiatr y, getting splint re foot fracture. Still not weighted, will re (units unknown) (unknown) (unknown) (no date) (unknown) (unknown) Shoulders and neck worse having to use wheel chair (units unknown) (unknown) (unknown) (no date) (unknown) (unknown) Signed By: (units unknown) (unknown) (unknown) (no date) (unknown) (unknown) Sister d Diabetes mellitus (units unknown) (unknown) (unknown) (no date) (unknown) (unknown) Smoking Status : Former smoker (units unknown) (unknown) (unknown) (no date) (unknown) (unknown) Source: [place] ped by Drs. Michael Kelsey, Anni Gunderson, Jay Spencer (units unknown) (unknown) (unknown) (no date) (unknown) (unknown) Status post colonoscopy (09/2019) (units unknown) (unknown) (unknown) (no date) (unknown) (unknown) Status post endoscopy (12/2019) (units unknown) (unknown) (unknown) (no date) (unknown) (unknown) Status post reduction mammoplasty (07/2010) (units unknown) (unknown) (unknown) (no date) (unknown) (unknown) Status: Acute (units unknown) (unknown) (unknown) (no date) (unknown) (unknown) Status: Chronic (uni ts unknown) (unknown) (unknown) (no date) (unknown) (unknown) Stroke (units unknown) (unknown) (unknown) (no date) (unknown) (unknown) Substance abuse (uni ts unknown) (unknown) (unknown) (no date) (unknown) (unknown) Surgical Histo ry (Updated 01/18/20 @ 15:38 by Summer Price DO) (units unknown) (unknown) (unknown) (no date) (unknown) (unknown) Temp 96.8 F L (units unknown) (unknown) (unknown) (no date) (unknown) (unknown) Temp Source Te mporal Artery Scan (units unknown) (unknown) (unknown) (no date) (unknown) (unknown) This note may have been all or partially generated using voice recognition (units unknown) (unknown) (unknown) (no date) (unknown) (unknown) Thoracic regio n somatic dysfunction (units unknown) (unknown) (unknown) (no date) (unknown) (unknown) 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, T7 FRSR (units unknown) (unknown) (unknown) (no date) (unknown) (unknown) Time Coding Mi nutes Spent: (must be on same date of service/appointment) (units unknown) (unknown) (unknown) (no date) (unknown) (unknown) Time Spent (units unknown) (unknown) (unknown) (no date) (unknown) (unknown) Tinnitus (units unknown) (unknown) (unknown) (no date) (unknown) (unknown) Tobacco + Subs tance Use (units unknown) (unknown) (unknown) (no date) (unknown) (unknown) Tobacco Status (unit s unknown) (unknown) (unknown) (no date) (unknown) (unknown) Total ROSA-7 sc ore (0-4 normal; 5-9 mild; 10-14 moderate; 15-21 severe): 4 (units unknown) (unknown) (unknown) (no date) (unknown) (unknown) Total score: 11 (uni ts unknown) (unknown) (unknown) (no date) (unknown) (unknown) Total visit ti me apart from OMT 31 minutes today, including 20 minutes face to (units unknown) (unknown) (unknown) (no date) (unknown) (unknown) Trouble relaxi n = Not at all (units unknown) (unknown) (unknown) (no date) (unknown) (unknown) Tubular adenom a of colon (12/2014) (units unknown) (unknown) (unknown) (no date) (unknown) (unknown) Upper extremit ies: b/l scapulothoracic restr and levator scap htn (units unknown) (unknown) (unknown) (no date) (unknown) (unknown) Urine Appearan ce Clear Last Edit by Lani Benavides CMA on 01/26/23 11:15 (units unknown) (unknown) (unknown) (no date) (unknown) (unknown) Urine Bilirubi n Negative Last Edit by Lani Benavides CMA on 01/26/23 11:15 (units unknown) (unknown) (unknown) (no date) (unknown) (unknown) Urine Blood +- 10 Ashish/uL Last Edit by Lani Benavides, [employer] on 01/26/23 11:15 (units unknown) (unknown) (unknown) (no date) (unknown) (unknown) Urine Color Ye llow Last Edit by Lani eBnavides, [facility] on 01/26/23 11:15 (units unknown) (unknown) (unknown) (no date) (unknown) (unknown) Urine Dipstick (unit s unknown) (unknown) (unknown) (no date) (unknown) (unknown) Urine Glucose Negative mg/dL Last Edit by Lani Benavides, [facility] on 01/26/23 11 (units unknown) (unknown) (unknown) (no date) (unknown) (unknown) Urine Ketones Negative Last Edit by Lani Benavides, [facility] on 01/26/23 11:15 (units unknown) (unknown) (unknown) (no date) (unknown) (unknown) Urine Leukocyt e Esterase Negative Last Edit by Lani Benavides, [facility] on 01/26 (units unknown) (unknown) (unknown) (no date) (unknown) (unknown) Urine Nitrate Negative Last Edit by Lani Benavides, [facility] on 01/26/23 11:15 (units unknown) (unknown) (unknown) (no date) (unknown) (unknown) Urine Protein Negative Last Edit by Lani Benavides, [facility] on 01/26/23 11:15 (units unknown) (unknown) (unknown) (no date) (unknown) (unknown) Urine Specific [place] 1.010 Last Edit by Lani Benavides, [facility] on 01/26/23 (units unknown) (unknown) (unknown) (no date) (unknown) (unknown) Urine Urobilin ogen - 0.2 mg/dL Last Edit by Lani Benavides, [facility] on units unknown) (unknown) (unknown) (no date) (unknown) (unknown) Urine pH 7.0 L ast Edit by Lani Benavides, [facility] on 01/26/23 11:15 (units unknown) (unknown) (unknown) (no date) (unknown) (unknown) Visit Reasons: OMT #2 (units unknown) (unknown) (unknown) (no date) (unknown) (unknown) Vitals (units unknown) (unknown) (unknown) (no date) (unknown) (unknown) Vitamin D 25 H ydroxy (D3) Today D51.0 - Vitamin B12 deficiency anemia due to (units unknown) (unknown) (unknown) (no date) (unknown) (unknown) Albert's (units unknown) (unknown) (unknown) (no date) (unknown) (unknown) Worrying too m uch about different things: 1 = Several days (units unknown) (unknown) (unknown) (no date) (unknown) (unknown) [Rx Confirmed 01/26/23] (units unknown) (unknown) (unknown) (no date) (unknown) (unknown) acetaminophen 300 mg-codeine 30 mg tablet 1 tab PO Q6H PRN pain #5 tabs 11/17/22 (units unknown) (unknown) (unknown) (no date) (unknown) (unknown) acute distress , has crutch for ambulation (units unknown) (unknown) (unknown) (no date) (unknown) (unknown) albuterol [ALBUTEROL] Allergy (Unknown, Verified 01/26/23 11:45) (units unknown) (unknown) (unknown) (no date) (unknown) (unknown) and colleagues , with an educational tej from [employer]. (units unknown) (unknown) (unknown) (no date) (unknown) (unknown) and your famil y down: several days (units unknown) (unknown) (unknown) (no date) (unknown) (unknown) bladder pain (units unknown) (unknown) (unknown) (no date) (unknown) (unknown) cholecalcifero l (vitamin D3) 250 mcg (10,000 unit) tablet 10,000 tab PO QDAY ##0 (units unknown) (unknown) (unknown) (no date) (unknown) (unknown) clonazepam 1 m g tablet 0.5 mg PO BID PRN anxiety #10 tabs 02/19/22 [Rx Confirmed (units unknown) (unknown) (unknown) (no date) (unknown) (unknown) congestion and stomach problems (units unknown) (unknown) (unknown) (no date) (unknown) (unknown) coordinating care. ( units unknown) (unknown) (unknown) (no date) (unknown) (unknown) cyanocobalamin (vitamin B-12) 1,000 mcg IM ONCE 1 mL 0RF D51.0 - Vitamin B12 (units unknown) (unknown) (unknown) (no date) (unknown) (unknown) cyanocobalamin (vitamin B-12) 1,000 mcg/mL injection solution 1,000 mcg IM (units unknown) (unknown) (unknown) (no date) (unknown) (unknown) deficiency ane mi due to intrinsic factor deficiency, E53.9 - Vitamin B (units unknown) (unknown) (unknown) (no date) (unknown) (unknown) deficiency, E5 5.9 - Vitamin D deficiency, unspecified, E61.1 - Iron deficiency, (units unknown) (unknown) (unknown) (no date) (unknown) (unknown) deficiency, unspecified (units unknown) (unknown) (unknown) (no date) (unknown) (unknown) dexamethasone Adverse Reaction (Severe, Verified 01/26/23 11:45) (units unknown) (unknown) (unknown) (no date) (unknown) (unknown) did comprehens cassy stool analysis through [employer] too (units unknown) (unknown) (unknown) (no date) (unknown) (unknown) did have SIBO breath through [facility] but unable to get results because was Dr (units unknown) (unknown) (unknown) (no date) (unknown) (unknown) eval after nex t ortho f/u. (units unknown) (unknown) (unknown) (no date) (unknown) (unknown) face on histor y, exam, and counseling, and 11 minutes reviewing, charting, and (units unknown) (unknown) (unknown) (no date) (unknown) (unknown) folic acid 5 m g PO 04/08/22 [History Confirmed 01/26/23] (units unknown) (unknown) (unknown) (no date) (unknown) (unknown) folic acid (units unknown) (unknown) (unknown) (no date) (unknown) (unknown) gastritis flares (un its unknown) (unknown) (unknown) (no date) (unknown) (unknown) gentle iron PO 12/09/21 [History Confirmed 01/26/23] (units unknown) (unknown) (unknown) (no date) (unknown) (unknown) gluten [GLUTEN ] Allergy (Unknown, Verified 01/26/23 11:45) (units unknown) (unknown) (unknown) (no date) (unknown) (unknown) gluten free vegan (u nits unknown) (unknown) (unknown) (no date) (unknown) (unknown) grass pollen A llergy (Severe, Verified 01/26/23 11:45) (units unknown) (unknown) (unknown) (no date) (unknown) (unknown) have occurred. If there are any questions, please contact the Medical Records (units unknown) (unknown) (unknown) (no date) (unknown) (unknown) hydromorphone [HYDROMORPHONE] Allergy (Mild, Verified 01/26/23 11:45) (units unknown) (unknown) (unknown) (no date) (unknown) (unknown) hydroxocobalam in 1,000 mcg/mL intramuscular solution 500 mcg (0.5 mL) IM BID #30 (units unknown) (unknown) (unknown) (no date) (unknown) (unknown) insulin syringe-needle U-100 1 mL 30 gauge x 1/2' (BD Insulin Syringe Ultra (units unknown) (unknown) (unknown) (no date) (unknown) (unknown) intrinsic fact or deficiency (units unknown) (unknown) (unknown) (no date) (unknown) (unknown) intrinsic fact or deficiency, E53.9 - Vitamin B deficiency, unspecified (units unknown) (unknown) (unknown) (no date) (unknown) (unknown) intrinsic fact or deficiency, E55.9 - Vitamin D deficiency, unspecified, E61.1 (units unknown) (unknown) (unknown) (no date) (unknown) (unknown) iodine and osmany enium for thyroid, rather than taking thyroid (units unknown) (unknown) (unknown) (no date) (unknown) (unknown) k2 with vit D PO 12/09/21 [History Confirmed 01/26/23] (units unknown) (unknown) (unknown) (no date) (unknown) (unknown) lithium [LITHI UM] Allergy (Unknown, Verified 01/26/23 11:45) (units unknown) (unknown) (unknown) (no date) (unknown) (unknown) loratadine 10 mg tablet (Claritin) 10 mg PO DAILY PRN allergic symptoms #90 tabs (units unknown) (unknown) (unknown) (no date) (unknown) (unknown) mL 11/27/22 [R x Confirmed 01/26/23] (units unknown) (unknown) (unknown) (no date) (unknown) (unknown) magnesium (units unknown) (unknown) (unknown) (no date) (unknown) (unknown) may occur. Occasional wrong-word or 'sound-alike' substitutions may have (units unknown) (unknown) (unknown) (no date) (unknown) (unknown) modifications. Labs today and B12 injection. (units unknown) (unknown) (unknown) (no date) (unknown) (unknown) more than usua l: not at all (units unknown) (unknown) (unknown) (no date) (unknown) (unknown) occurred due t o the inherent limitations of voice recognition software. Please (units unknown) (unknown) (unknown) (no date) (unknown) (unknown) ondansetron HC l 4 mg tablet (Zofran) 4 mg PO Q4HP PRN #20 tabs 11/25/17 [Rx (units unknown) (unknown) (unknown) (no date) (unknown) (unknown) opposite - joann ng so fidgety or restless that you have been moving around a lot (units unknown) (unknown) (unknown) (no date) (unknown) (unknown) people?: somew hat difficult (units unknown) (unknown) (unknown) (no date) (unknown) (unknown) per OSE. (units unknown) (unknown) (unknown) (no date) (unknown) (unknown) polyneuropathies (un its unknown) (unknown) (unknown) (no date) (unknown) (unknown) problems? (units unknown) (unknown) (unknown) (no date) (unknown) (unknown) read the note carefully and recognize, using context, where these substitutions (units unknown) (unknown) (unknown) (no date) (unknown) (unknown) software. Alth ough every effort is made to edit content, hand cell tuber errors (units unknown) (unknown) (unknown) (no date) (unknown) (unknown) tachycardia (units unknown) (unknown) (unknown) (no date) (unknown) (unknown) takes: (units unknown) (unknown) (unknown) (no date) (unknown) (unknown) television: ne dieudonne every day (units unknown) (unknown) (unknown) (no date) (unknown) (unknown) tizanidine 4 m g tablet 4 mg PO Q8H PRN muscle spasticity #20 tabs 01/05/23 [Rx (units unknown) (unknown) (unknown) (no date) (unknown) (unknown) vitamin C / ir on 125mg plant based (units unknown) (unknown) (unknown) (no date) (unknown) (unknown) vitamin D / K2 76350/100 (units unknown) (unknown) (unknown) (no date) (unknown) (unknown) vitamin c 1000 mg PO 12/09/21 [History Confirmed 01/26/23] (units unknown) (unknown) (unknown) (no date) (unknown) (unknown) wants ongoing B12 and needles, hoping to get a formulation without additive (units unknown) (unknown) (unknown) (no date) (unknown) (unknown) way: not at all (uni ts unknown) (unknown) (unknown) (no date) (unknown) (unknown) you to do your work, take care of things at home, or get along with other (units unknown) (unknown) Result panel 35 (unknown) (no date) (unknown) (unknown) (no value) (units unknown) (unknown) (unknown) (no date) (unknown) (unknown) (1) Pathologic al fracture, right foot, initial encounter for fracture: (units unknown) (unknown) (unknown) (no date) (unknown) (unknown) (10) Sacral re gion somatic dysfunction: (units unknown) (unknown) (unknown) (no date) (unknown) (unknown) (11) Somatic dysfunction of abdominal region: (units unknown) (unknown) (unknown) (no date) (unknown) (unknown) (12) Somatic dysfunction of rib region: (units unknown) (unknown) (unknown) (no date) (unknown) (unknown) (13) Somatic dysfunction of lower extremity: (units unknown) (unknown) (unknown) (no date) (unknown) (unknown) (14) Somatic dysfunction of upper extremity: (units unknown) (unknown) (unknown) (no date) (unknown) (unknown) (2) IBS (irrit able bowel syndrome): (units unknown) (unknown) (unknown) (no date) (unknown) (unknown) (3) Vitamin D deficiency disease: (units unknown) (unknown) (unknown) (no date) (unknown) (unknown) (4) Pernicious anemia: (units unknown) (unknown) (unknown) (no date) (unknown) (unknown) (5) Cranial so matic dysfunction: (units unknown) (unknown) (unknown) (no date) (unknown) (unknown) (6) Cervical s omatic dysfunction: (units unknown) (unknown) (unknown) (no date) (unknown) (unknown) (7) Thoracic r egion somatic dysfunction: (units unknown) (unknown) (unknown) (no date) (unknown) (unknown) (8) Lumbar reg ion somatic dysfunction: (units unknown) (unknown) (unknown) (no date) (unknown) (unknown) (9) Pelvic zoey atic dysfunction: (units unknown) (unknown) (unknown) (no date) (unknown) (unknown) (units unknown) (unknown) (unknown) (no date) (unknown) (unknown) [phone] (units unknown) (unknown) (unknown) (no date) (unknown) (unknown) 12/26/17 [Hist ory Confirmed 01/26/23] (units unknown) (unknown) (unknown) (no date) (unknown) (unknown) 01/26/23 (units unknown) (unknown) (unknown) (no date) (unknown) (unknown) 01/26/23] (units unknown) (unknown) (unknown) (no date) (unknown) (unknown) 03/25/22 [Rx Confirmed 01/26/23] (units unknown) (unknown) (unknown) (no date) (unknown) (unknown) 1,000 mcg IM l eft deltoid [id number] 04/08/25 [id number] [place] (units unknown) (unknown) (unknown) (no date) (unknown) (unknown) 1. Little inte rest or pleasure in doing things: not at all (units unknown) (unknown) (unknown) (no date) (unknown) (unknown) 10:59 01/26/23 (unit s unknown) (unknown) (unknown) (no date) (unknown) (unknown) 11:15 (units unknown) (unknown) (unknown) (no date) (unknown) (unknown) 12:01 (units unknown) (unknown) (unknown) (no date) (unknown) (unknown) 2. Feeling bailee n, depressed, or hopeless: several days (units unknown) (unknown) (unknown) (no date) (unknown) (unknown) 23 (units unknown) (unknown) (unknown) (no date) (unknown) (unknown) 3. Trouble fal ling or staying asleep, or sleeping too much: nearly every day (units unknown) (unknown) (unknown) (no date) (unknown) (unknown) 4. Feeling tir ed or having little energy: nearly every day (units unknown) (unknown) (unknown) (no date) (unknown) (unknown) 5. Poor appeti te or overeating: not at all (units unknown) (unknown) (unknown) (no date) (unknown) (unknown) 6. Feeling bad about yourself - or that you are a failure or have let yourself (units unknown) (unknown) (unknown) (no date) (unknown) (unknown) 67 yo female presents today for OMT #2 and B12 injection (units unknown) (unknown) (unknown) (no date) (unknown) (unknown) 7. Trouble concentrating on things, such as reading the newspaper or watching (units unknown) (unknown) (unknown) (no date) (unknown) (unknown) 7th day Confucianism (u nits unknown) (unknown) (unknown) (no date) (unknown) (unknown) 8. Moving or speaking so slowly that other people could have noticed? - Or the (units unknown) (unknown) (unknown) (no date) (unknown) (unknown) 9. Thoughts th at you would be better off or of hurting yourself in some (units unknown) (unknown) (unknown) (no date) (unknown) (unknown) :15 (units unknown) (unknown) (unknown) (no date) (unknown) (unknown) Abdomen: magaly c ganglion restr (units unknown) (unknown) (unknown) (no date) (unknown) (unknown) Accompanied by : (units unknown) (unknown) (unknown) (no date) (unknown) (unknown) Acute pain of left shoulder (units unknown) (unknown) (unknown) (no date) (unknown) (unknown) Administered b y: Lani BenavidesCHEKO on 01/26/23 11:55 (units unknown) (unknown) (unknown) (no date) (unknown) (unknown) Adult (CMS 138/2/22/69/61/64/16 5) (units unknown) (unknown) (unknown) (no date) (unknown) (unknown) Age/Sex: 67 / F Date of Service: (units unknown) (unknown) (unknown) (no date) (unknown) (unknown) Allergic react ion to grass pollen (units unknown) (unknown) (unknown) (no date) (unknown) (unknown) Allergic to cats (un its unknown) (unknown) (unknown) (no date) (unknown) (unknown) Allergies (units unknown) (unknown) (unknown) (no date) (unknown) (unknown) [place] [address] (units unknown) (unknown) (unknown) (no date) (unknown) (unknown) Anesthesia (units unknown) (unknown) (unknown) (no date) (unknown) (unknown) Angina pectoris (uni ts unknown) (unknown) (unknown) (no date) (unknown) (unknown) Ankle pain, ch ronic (2014) (units unknown) (unknown) (unknown) (no date) (unknown) (unknown) Ankle pain, chronic (units unknown) (unknown) (unknown) (no date) (unknown) (unknown) Anxiety (units unknown) (unknown) (unknown) (no date) (unknown) (unknown) Assessment + Plan (u nits unknown) (unknown) (unknown) (no date) (unknown) (unknown) Attending Dr: Laura Parikh D.O. (units unknown) (unknown) (unknown) (no date) (unknown) (unknown) B12 (Cyanocoba l) Injection Today D51.0 - Vitamin B12 deficiency anemia due to (units unknown) (unknown) (unknown) (no date) (unknown) (unknown) B12 (IM after failing high dose sublingual) for occipital neuralgia, as well as (units unknown) (unknown) (unknown) (no date) (unknown) (unknown) BMI Refused (units unknown) (unknown) (unknown) (no date) (unknown) (unknown) BMI Screening: Yes BMI screening not done Reason: Yes Patient refused (units unknown) (unknown) (unknown) (no date) (unknown) (unknown) BP 170/88 H 180/94 H (units unknown) (unknown) (unknown) (no date) (unknown) (unknown) Basic Metaboli c Panel Today D51.0 - Vitamin B12 deficiency anemia due to (units unknown) (unknown) (unknown) (no date) (unknown) (unknown) Becoming easil y annoyed or irritable: 1 = Several days (units unknown) (unknown) (unknown) (no date) (unknown) (unknown) Being so restl ess that it is hard to sit still: 0 = Not at all (units unknown) (unknown) (unknown) (no date) (unknown) (unknown) Billing- OMT Therapy: OMT 9-10 Body Regions- 93001 (units unknown) (unknown) (unknown) (no date) (unknown) (unknown) Bipolar disorder (un its unknown) (unknown) (unknown) (no date) (unknown) (unknown) Blood Pressure Location Lt brachial Lt brachial (units unknown) (unknown) (unknown) (no date) (unknown) (unknown) Brain cancer (units unknown) (unknown) (unknown) (no date) (unknown) (unknown) Broke R foot, very painful, still not weight bearing. Seeing ortho and podiatry. (units unknown) (unknown) (unknown) (no date) (unknown) (unknown) Cervical somat ic dysfunction (units unknown) (unknown) (unknown) (no date) (unknown) (unknown) Cervical: C4 FRSL ? (units unknown) (unknown) (unknown) (no date) (unknown) (unknown) Chicken pox (units unknown) (unknown) (unknown) (no date) (unknown) (unknown) Chief Complaint (uni ts unknown) (unknown) (unknown) (no date) (unknown) (unknown) Chief Complain t: multiple pain complaints (units unknown) (unknown) (unknown) (no date) (unknown) (unknown) Child Age: 34 Hx of appendectomy (units unknown) (unknown) (unknown) (no date) (unknown) (unknown) Child Age: 37 Penicillin allergy (units unknown) (unknown) (unknown) (no date) (unknown) (unknown) Child Age: 46 Hay fever (units unknown) (unknown) (unknown) (no date) (unknown) (unknown) 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 (units unknown) (unknown) (unknown) (no date) (unknown) (unknown) Chronic left-s ided thoracic back pain (units unknown) (unknown) (unknown) (no date) (unknown) (unknown) Complete Blood Count NO DIFF Today D51.0 - Vitamin B12 deficiency anemia due to (units unknown) (unknown) (unknown) (no date) (unknown) (unknown) 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 (-12/2016) (units unknown) (unknown) (unknown) (no date) (unknown) (unknown) Compression fr acture of body of thoracic vertebra () (units unknown) (unknown) (unknown) (no date) (unknown) (unknown) Confirmed 01/26/23] (units unknown) (unknown) (unknown) (no date) (unknown) (unknown) Cranial somati c dysfunction (units unknown) (unknown) (unknown) (no date) (unknown) (unknown) DAIRY Allergy (Intermediate, Uncoded 01/26/23 11:45) (units unknown) (unknown) (unknown) (no date) (unknown) (unknown) : 4 Acct:[id number] (units unknown) (unknown) (unknown) (no date) (unknown) (unknown) Depression (09/21/14) (units unknown) (unknown) (unknown) (no date) (unknown) (unknown) Depression (units unknown) (unknown) (unknown) (no date) (unknown) (unknown) Depression/Bip olar (159/160/161/169/177 ) (units unknown) (unknown) (unknown) (no date) (unknown) (unknown) Dept at . (units unknown) (unknown) (unknown) (no date) (unknown) (unknown) Details: (units unknown) (unknown) (unknown) (no date) (unknown) (unknown) Disabled Katharine ng Permit #1 ea 04/08/22 [Rx Confirmed 01/26/23] (units unknown) (unknown) (unknown) (no date) (unknown) (unknown) Documented By: Laura Parikh D.O. 01/26/23 1059 (units unknown) (unknown) (unknown) (no date) (unknown) (unknown) Dose Route Adm in Location Lot Number Expiration Date NDC (units unknown) (unknown) (unknown) (no date) (unknown) (unknown) Draft (units unknown) (unknown) (unknown) (no date) (unknown) (unknown) Due for PCV13, TDaP and Shingrix. (units unknown) (unknown) (unknown) (no date) (unknown) (unknown) E87.6 - Hypokalemia (units unknown) (unknown) (unknown) (no date) (unknown) (unknown) Environmental allergies (units unknown) (unknown) (unknown) (no date) (unknown) (unknown) Esophageal stricture (units unknown) (unknown) (unknown) (no date) (unknown) (unknown) Esophagitis (units unknown) (unknown) (unknown) (no date) (unknown) (unknown) Exam Narrative (unit s unknown) (unknown) (unknown) (no date) (unknown) (unknown) Exam Narrative: (uni ts unknown) (unknown) (unknown) (no date) (unknown) (unknown) Exam (units unknown) (unknown) (unknown) (no date) (unknown) (unknown) Family History (Updated 06/08/18 @ 12:37 by Rabia Jacob) (units unknown) (unknown) (unknown) (no date) (unknown) (unknown) Family Practic e Office Visit (units unknown) (unknown) (unknown) (no date) (unknown) (unknown) Feeling afraid as if something awful might happen: 0 = Not at all (units unknown) (unknown) (unknown) (no date) (unknown) (unknown) Feeling nervou s, anxious, or on edge: 1 = Several days (units unknown) (unknown) (unknown) (no date) (unknown) (unknown) Ferritin Today D51.0 - Vitamin B12 deficiency anemia due to intrinsic factor (units unknown) (unknown) (unknown) (no date) (unknown) (unknown) Fibromyalgia (units unknown) (unknown) (unknown) (no date) (unknown) (unknown) [facility] (units unknown) (unknown) (unknown) (no date) (unknown) (unknown) Fine) See Rx Instructions .Route .COMPLEX #200 ea 01/15/23 [Rx Confirmed (units unknown) (unknown) (unknown) (no date) (unknown) (unknown) Foot pain (2011) (un its unknown) (unknown) (unknown) (no date) (unknown) (unknown) ROSA-7 (units unknown) (unknown) (unknown) (no date) (unknown) (unknown) Gastropathy (units unknown) (unknown) (unknown) (no date) (unknown) (unknown) General: pleas ant, cooperative, +central adiposity, sitting comfortably in no (units unknown) (unknown) (unknown) (no date) (unknown) (unknown) Gets relief with OMT (units unknown) (unknown) (unknown) (no date) (unknown) (unknown) Grandmother Di abetes mellitus (units unknown) (unknown) (unknown) (no date) (unknown) (unknown) HPI (units unknown) (unknown) (unknown) (no date) (unknown) (unknown) Hayfever (units unknown) (unknown) (unknown) (no date) (unknown) (unknown) Head: b/l OM r estr, SBS compr (units unknown) (unknown) (unknown) (no date) (unknown) (unknown) Health Managem ent reviewed with patient: Yes (units unknown) (unknown) (unknown) (no date) (unknown) (unknown) Health Management (u nits unknown) (unknown) (unknown) (no date) (unknown) (unknown) Heart disease (units unknown) (unknown) (unknown) (no date) (unknown) (unknown) Height 5 ft 3.5 in ( units unknown) (unknown) (unknown) (no date) (unknown) (unknown) Hemorrhoids (units unknown) (unknown) (unknown) (no date) (unknown) (unknown) Hiatal hernia (units unknown) (unknown) (unknown) (no date) (unknown) (unknown) High cholesterol (un its unknown) (unknown) (unknown) (no date) (unknown) (unknown) History of candice betes mellitus (units unknown) (unknown) (unknown) (no date) (unknown) (unknown) History of fundoplication (units unknown) (unknown) (unknown) (no date) (unknown) (unknown) History of rep air of hiatal hernia (11/2011) (units unknown) (unknown) (unknown) (no date) (unknown) (unknown) History of tonsillectomy (1971) (units unknown) (unknown) (unknown) (no date) (unknown) (unknown) Hives (units unknown) (unknown) (unknown) (no date) (unknown) (unknown) Hypertension (units unknown) (unknown) (unknown) (no date) (unknown) (unknown) Hypothyroidism (unit s unknown) (unknown) (unknown) (no date) (unknown) (unknown) IBS (irritable bowel syndrome) (units unknown) (unknown) (unknown) (no date) (unknown) (unknown) 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 unknown) (unknown) (unknown) (no date) (unknown) (unknown) If you checked off any problems, how difficult have these problems made it for (units unknown) (unknown) (unknown) (no date) (unknown) (unknown) Informed conse nt given: Yes (units unknown) (unknown) (unknown) (no date) (unknown) (unknown) Intake Note: (units unknown) (unknown) (unknown) (no date) (unknown) (unknown) Intake perform ed by: Lani Benavides (units unknown) (unknown) (unknown) (no date) (unknown) (unknown) Intake (units unknown) (unknown) (unknown) (no date) (unknown) (unknown) Intake- Clinci al Staff (units unknown) (unknown) (unknown) (no date) (unknown) (unknown) Iron deficienc y, E87.6 - Hypokalemia (units unknown) (unknown) (unknown) (no date) (unknown) (unknown) Irritable julien l syndrome type: with both diarrhea and constipation (units unknown) (unknown) (unknown) (no date) (unknown) (unknown) Last Menstural Cycle + Details (units unknown) (unknown) (unknown) (no date) (unknown) (unknown) Leg worse compensating for foot positions (units unknown) (unknown) (unknown) (no date) (unknown) (unknown) Liver cancer (units unknown) (unknown) (unknown) (no date) (unknown) (unknown) Loc: [facility] (units unknown) (unknown) (unknown) (no date) (unknown) (unknown) Lower extremit ies: R FH ant (units unknown) (unknown) (unknown) (no date) (unknown) (unknown) Lumbar facet arthropathy (2013) (units unknown) (unknown) (unknown) (no date) (unknown) (unknown) Lumbar region somatic dysfunction (units unknown) (unknown) (unknown) (no date) (unknown) (unknown) Lumbar: L1 FRSR (uni ts unknown) (unknown) (unknown) (no date) (unknown) (unknown) Lung cancer (units unknown) (unknown) (unknown) (no date) (unknown) (unknown) Managing IBS a nd pernicious anemia with supplementation and dietary (units unknown) (unknown) (unknown) (no date) (unknown) (unknown) 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) (unknown) (unknown) (no date) (unknown) (unknown) Medical Histor y (Updated 01/26/23 @ 11:31 by Laura Parikh DO) (units unknown) (unknown) (unknown) (no date) (unknown) (unknown) Medications (units unknown) (unknown) (unknown) (no date) (unknown) (unknown) Mother d Diabetes mellitus (units unknown) (unknown) (unknown) (no date) (unknown) (unknown) Neuro: alert a nd oriented to person and situation (units unknown) (unknown) (unknown) (no date) (unknown) (unknown) Not being able to stop or control worryin = Several days (units unknown) (unknown) (unknown) (no date) (unknown) (unknown) OMM Procedure Notes: (units unknown) (unknown) (unknown) (no date) (unknown) (unknown) OMT with PH an d avoiding R distal LE, focus on autonomic nervous system today (units unknown) (unknown) (unknown) (no date) (unknown) (unknown) Obesity (units unknown) (unknown) (unknown) (no date) (unknown) (unknown) Office Meds (units unknown) (unknown) (unknown) (no date) (unknown) (unknown) Office Procedures (u nits unknown) (unknown) (unknown) (no date) (unknown) (unknown) Orders (units unknown) (unknown) (unknown) (no date) (unknown) (unknown) Orders: (units unknown) (unknown) (unknown) (no date) (unknown) (unknown) Osteoarthritis (2012) (units unknown) (unknown) (unknown) (no date) (unknown) (unknown) Osteopathic Structural Exam: (units unknown) (unknown) (unknown) (no date) (unknown) (unknown) Osteoporosis o f lumbar spine (units unknown) (unknown) (unknown) (no date) (unknown) (unknown) Osteoporosis (units unknown) (unknown) (unknown) (no date) (unknown) (unknown) Other Menstrua l Period: Postmenopausal (units unknown) (unknown) (unknown) (no date) (unknown) (unknown) Over the last 2 weeks, how often have you been bothered by any of the following (units unknown) (unknown) (unknown) (no date) (unknown) (unknown) Oxygen Deliver y Method room air room air (units unknown) (unknown) (unknown) (no date) (unknown) (unknown) PFSH (units unknown) (unknown) (unknown) (no date) (unknown) (unknown) PH, cranial, G OT, BLT, MFR (units unknown) (unknown) (unknown) (no date) (unknown) (unknown) PHQ-9 (units unknown) (unknown) (unknown) (no date) (unknown) (unknown) POC Urine Dip Today R30.0 - Dysuria (units unknown) (unknown) (unknown) (no date) (unknown) (unknown) PTSD (post-tra umatic stress disorder) (units unknown) (unknown) (unknown) (no date) (unknown) (unknown) Patient: VioletteWhitley MR#: M (units unknown) (unknown) (unknown) (no date) (unknown) (unknown) Pelvic somatic dysfunction (units unknown) (unknown) (unknown) (no date) (unknown) (unknown) Pelvis: L ant (units unknown) (unknown) (unknown) (no date) (unknown) (unknown) Performing Pro vider: Laura Parikh DO (units unknown) (unknown) (unknown) (no date) (unknown) (unknown) Pernicious anemia (u nits unknown) (unknown) (unknown) (no date) (unknown) (unknown) Personality disorder (units unknown) (unknown) (unknown) (no date) (unknown) (unknown) Plan (units unknown) (unknown) (unknown) (no date) (unknown) (unknown) Position Sitti ng Sitting (units unknown) (unknown) (unknown) (no date) (unknown) (unknown) Psych: well ke mpt, speech and movement normal, normal affect (units unknown) (unknown) (unknown) (no date) (unknown) (unknown) Pulse 111 H 97 H (un its unknown) (unknown) (unknown) (no date) (unknown) (unknown) Pulse Oximetry (%) 98 97 (units unknown) (unknown) (unknown) (no date) (unknown) (unknown) Pulse Source M onitor Monitor (units unknown) (unknown) (unknown) (no date) (unknown) (unknown) [id number] #1 mL 08/04/22 [Rx Confirmed 01/26/23] (units unknown) (unknown) (unknown) (no date) (unknown) (unknown) Qualified Code (s): K58.2 - Mixed irritable bowel syndrome (units unknown) (unknown) (unknown) (no date) (unknown) (unknown) Qualifiers: (units unknown) (unknown) (unknown) (no date) (unknown) (unknown) Quality Reporting (u nits unknown) (unknown) (unknown) (no date) (unknown) (unknown) Questionnaires (unit s unknown) (unknown) (unknown) (no date) (unknown) (unknown) RLS (restless legs syndrome) (units unknown) (unknown) (unknown) (no date) (unknown) (unknown) Reason For Visit (un its unknown) (unknown) (unknown) (no date) (unknown) (unknown) Resp: normal e ffort, able to speak in complete sentences (units unknown) (unknown) (unknown) (no date) (unknown) (unknown) Results (units unknown) (unknown) (unknown) (no date) (unknown) (unknown) Ribcage: R2-3 post, b/l 12 exh (units unknown) (unknown) (unknown) (no date) (unknown) (unknown) Right shoulder pain (units unknown) (unknown) (unknown) (no date) (unknown) (unknown) SWELLING (units unknown) (unknown) (unknown) (no date) (unknown) (unknown) Sacral region somatic dysfunction (units unknown) (unknown) (unknown) (no date) (unknown) (unknown) Sacroiliitis (2012) (units unknown) (unknown) (unknown) (no date) (unknown) (unknown) Sacrum: b/l F, L>R SI restr (units unknown) (unknown) (unknown) (no date) (unknown) (unknown) Seborrheic keratosis (units unknown) (unknown) (unknown) (no date) (unknown) (unknown) Seeing podiatr y, getting splint re foot fracture. Still not weighted, will re (units unknown) (unknown) (unknown) (no date) (unknown) (unknown) Shoulders and neck worse having to use wheel chair (units unknown) (unknown) (unknown) (no date) (unknown) (unknown) Signed By: (units unknown) (unknown) (unknown) (no date) (unknown) (unknown) Sister d Diabetes mellitus (units unknown) (unknown) (unknown) (no date) (unknown) (unknown) Smoking Status : Former smoker (units unknown) (unknown) (unknown) (no date) (unknown) (unknown) Source: [place] ped by Drs. Michael Kelsey, Anni Gunderson, Jay Spencer (units unknown) (unknown) (unknown) (no date) (unknown) (unknown) Status post colonoscopy (09/2019) (units unknown) (unknown) (unknown) (no date) (unknown) (unknown) Status post endoscopy (12/2019) (units unknown) (unknown) (unknown) (no date) (unknown) (unknown) Status post reduction mammoplasty (07/2010) (units unknown) (unknown) (unknown) (no date) (unknown) (unknown) Status: Acute (units unknown) (unknown) (unknown) (no date) (unknown) (unknown) Status: Chronic (uni ts unknown) (unknown) (unknown) (no date) (unknown) (unknown) Stroke (units unknown) (unknown) (unknown) (no date) (unknown) (unknown) Substance abuse (uni ts unknown) (unknown) (unknown) (no date) (unknown) (unknown) Surgical Histo ry (Updated 01/18/20 @ 15:38 by Summer Price DO) (units unknown) (unknown) (unknown) (no date) (unknown) (unknown) Temp 96.8 F L (units unknown) (unknown) (unknown) (no date) (unknown) (unknown) Temp Source Te mporal Artery Scan (units unknown) (unknown) (unknown) (no date) (unknown) (unknown) This note may have been all or partially generated using voice recognition (units unknown) (unknown) (unknown) (no date) (unknown) (unknown) Thoracic regio n somatic dysfunction (units unknown) (unknown) (unknown) (no date) (unknown) (unknown) 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, T7 FRSR (units unknown) (unknown) (unknown) (no date) (unknown) (unknown) Time Coding Mi nutes Spent: (must be on same date of service/appointment) (units unknown) (unknown) (unknown) (no date) (unknown) (unknown) Time Spent (units unknown) (unknown) (unknown) (no date) (unknown) (unknown) Tinnitus (units unknown) (unknown) (unknown) (no date) (unknown) (unknown) Tobacco + Subs tance Use (units unknown) (unknown) (unknown) (no date) (unknown) (unknown) Tobacco Status (unit s unknown) (unknown) (unknown) (no date) (unknown) (unknown) Total ROSA-7 sc ore (0-4 normal; 5-9 mild; 10-14 moderate; 15-21 severe): 4 (units unknown) (unknown) (unknown) (no date) (unknown) (unknown) Total score: 11 (uni ts unknown) (unknown) (unknown) (no date) (unknown) (unknown) Total visit ti me apart from OMT 31 minutes today, including 20 minutes face to (units unknown) (unknown) (unknown) (no date) (unknown) (unknown) Trouble relaxi n = Not at all (units unknown) (unknown) (unknown) (no date) (unknown) (unknown) Tubular adenom a of colon (12/2014) (units unknown) (unknown) (unknown) (no date) (unknown) (unknown) Upper extremit ies: b/l scapulothoracic restr and levator scap htn (units unknown) (unknown) (unknown) (no date) (unknown) (unknown) Urine Appearan ce Clear Last Edit by Lani Benavides, [facility] on 01/26/23 11:15 (units unknown) (unknown) (unknown) (no date) (unknown) (unknown) Urine Bilirubi n Negative Last Edit by Lani Benavides, [facility] on 01/26/23 11:15 (units unknown) (unknown) (unknown) (no date) (unknown) (unknown) Urine Blood +- 10 Ashish/uL Last Edit by Lani Benavides, [facility] on 01/26/23 11:15 (units unknown) (unknown) (unknown) (no date) (unknown) (unknown) Urine Color Ye llow Last Edit by Lani Benavides, [facility] on 01/26/23 11:15 (units unknown) (unknown) (unknown) (no date) (unknown) (unknown) Urine Dipstick (unit s unknown) (unknown) (unknown) (no date) (unknown) (unknown) Urine Glucose Negative mg/dL Last Edit by Lani Benavides, [facility] on 01/26/23 11 (units unknown) (unknown) (unknown) (no date) (unknown) (unknown) Urine Ketones Negative Last Edit by Lani Benavides, [facility] on 01/26/23 11:15 (units unknown) (unknown) (unknown) (no date) (unknown) (unknown) Urine Leukocyt e Esterase Negative Last Edit by Lani Benavides, [facility] on 01/26 (units unknown) (unknown) (unknown) (no date) (unknown) (unknown) Urine Nitrate Negative Last Edit by Lani Benavides, [facility] on 01/26/23 11:15 (units unknown) (unknown) (unknown) (no date) (unknown) (unknown) Urine Protein Negative Last Edit by Lani Benavides, [facility] on 01/26/23 11:15 (units unknown) (unknown) (unknown) (no date) (unknown) (unknown) Urine Specific [place] 1.010 Last Edit by Lani Benavides, [facility] on 01/26/23 (units unknown) (unknown) (unknown) (no date) (unknown) (unknown) Urine Urobilin ogen - 0.2 mg/dL Last Edit by Lani Benavides, [facility] on (units unknown) (unknown) (unknown) (no date) (unknown) (unknown) Urine pH 7.0 L ast Edit by Lani Benavides CMA on 01/26/23 11:15 (units unknown) (unknown) (unknown) (no date) (unknown) (unknown) Visit Reasons: OMT #2 (units unknown) (unknown) (unknown) (no date) (unknown) (unknown) Vitals (units unknown) (unknown) (unknown) (no date) (unknown) (unknown) Vitamin D 25 H ydroxy (D3) Today D51.0 - Vitamin B12 deficiency anemia due to (units unknown) (unknown) (unknown) (no date) (unknown) (unknown) [place] (units unknown) (unknown) (unknown) (no date) (unknown) (unknown) Worrying too m uch about different things: 1 = Several days (units unknown) (unknown) (unknown) (no date) (unknown) (unknown) [Rx Confirmed 01/26/23] (units unknown) (unknown) (unknown) (no date) (unknown) (unknown) acetaminophen 300 mg-codeine 30 mg tablet 1 tab PO Q6H PRN pain #5 tabs 11/17/22 (units unknown) (unknown) (unknown) (no date) (unknown) (unknown) acute distress , has crutch for ambulation (units unknown) (unknown) (unknown) (no date) (unknown) (unknown) albuterol [ALBUTEROL] Allergy (Unknown, Verified 01/26/23 11:45) (units unknown) (unknown) (unknown) (no date) (unknown) (unknown) and colleagues , with an educational tej from [employer]. (units unknown) (unknown) (unknown) (no date) (unknown) (unknown) and your famil y down: several days (units unknown) (unknown) (unknown) (no date) (unknown) (unknown) bladder pain (units unknown) (unknown) (unknown) (no date) (unknown) (unknown) cholecalcifero l (vitamin D3) 250 mcg (10,000 unit) tablet 10,000 tab PO QDAY ##0 (units unknown) (unknown) (unknown) (no date) (unknown) (unknown) clonazepam 1 m g tablet 0.5 mg PO BID PRN anxiety #10 tabs 02/19/22 [Rx Confirmed (units unknown) (unknown) (unknown) (no date) (unknown) (unknown) congestion and stomach problems (units unknown) (unknown) (unknown) (no date) (unknown) (unknown) coordinating care. ( units unknown) (unknown) (unknown) (no date) (unknown) (unknown) cyanocobalamin (vitamin B-12) 1,000 mcg/mL injection solution 1,000 mcg IM (units unknown) (unknown) (unknown) (no date) (unknown) (unknown) cyanocobalamin (vitamin B-12) (units unknown) (unknown) (unknown) (no date) (unknown) (unknown) deficiency, E5 5.9 - Vitamin D deficiency, unspecified, E61.1 - Iron deficiency, (units unknown) (unknown) (unknown) (no date) (unknown) (unknown) dexamethasone Adverse Reaction (Severe, Verified 01/26/23 11:45) (units unknown) (unknown) (unknown) (no date) (unknown) (unknown) did comprehens cassy stool analysis through [employer] too (units unknown) (unknown) (unknown) (no date) (unknown) (unknown) did have SIBO breath through [facility] but unable to get results because was Dr (units unknown) (unknown) (unknown) (no date) (unknown) (unknown) eval after nex t ortho f/u. (units unknown) (unknown) (unknown) (no date) (unknown) (unknown) face on histor y, exam, and counseling, and 11 minutes reviewing, charting, and (units unknown) (unknown) (unknown) (no date) (unknown) (unknown) folic acid 5 m g PO 04/08/22 [History Confirmed 01/26/23] (units unknown) (unknown) (unknown) (no date) (unknown) (unknown) folic acid (units unknown) (unknown) (unknown) (no date) (unknown) (unknown) gastritis flares (un its unknown) (unknown) (unknown) (no date) (unknown) (unknown) gentle iron PO 12/09/21 [History Confirmed 01/26/23] (units unknown) (unknown) (unknown) (no date) (unknown) (unknown) gluten [GLUTEN ] Allergy (Unknown, Verified 01/26/23 11:45) (units unknown) (unknown) (unknown) (no date) (unknown) (unknown) gluten free vegan (u nits unknown) (unknown) (unknown) (no date) (unknown) (unknown) grass pollen A llergy (Severe, Verified 01/26/23 11:45) (units unknown) (unknown) (unknown) (no date) (unknown) (unknown) have occurred. If there are any questions, please contact the Medical Records (units unknown) (unknown) (unknown) (no date) (unknown) (unknown) hydromorphone [HYDROMORPHONE] Allergy (Mild, Verified 01/26/23 11:45) (units unknown) (unknown) (unknown) (no date) (unknown) (unknown) hydroxocobalam in 1,000 mcg/mL intramuscular solution 500 mcg (0.5 mL) IM BID #30 (units unknown) (unknown) (unknown) (no date) (unknown) (unknown) insulin syringe-needle U-100 1 mL 30 gauge x 1/2' (BD Insulin Syringe Ultra (units unknown) (unknown) (unknown) (no date) (unknown) (unknown) intrinsic fact or deficiency (units unknown) (unknown) (unknown) (no date) (unknown) (unknown) intrinsic fact or deficiency, E53.9 - Vitamin B deficiency, unspecified (units unknown) (unknown) (unknown) (no date) (unknown) (unknown) intrinsic fact or deficiency, E55.9 - Vitamin D deficiency, unspecified, E61.1 (units unknown) (unknown) (unknown) (no date) (unknown) (unknown) iodine and osmany enium for thyroid, rather than taking thyroid (units unknown) (unknown) (unknown) (no date) (unknown) (unknown) k2 with vit D PO 12/09/21 [History Confirmed 01/26/23] (units unknown) (unknown) (unknown) (no date) (unknown) (unknown) lithium [LITHI UM] Allergy (Unknown, Verified 01/26/23 11:45) (units unknown) (unknown) (unknown) (no date) (unknown) (unknown) loratadine 10 mg tablet (Claritin) 10 mg PO DAILY PRN allergic symptoms #90 tabs (units unknown) (unknown) (unknown) (no date) (unknown) (unknown) mL 11/27/22 [R x Confirmed 01/26/23] (units unknown) (unknown) (unknown) (no date) (unknown) (unknown) magnesium (units unknown) (unknown) (unknown) (no date) (unknown) (unknown) may occur. Occasional wrong-word or 'sound-alike' substitutions may have (units unknown) (unknown) (unknown) (no date) (unknown) (unknown) modifications. Labs today and B12 injection. (units unknown) (unknown) (unknown) (no date) (unknown) (unknown) more than usua l: not at all (units unknown) (unknown) (unknown) (no date) (unknown) (unknown) occurred due t o the inherent limitations of voice recognition software. Please (units unknown) (unknown) (unknown) (no date) (unknown) (unknown) ondansetron HC l 4 mg tablet (Zofran) 4 mg PO Q4HP PRN #20 tabs 11/25/17 [Rx (units unknown) (unknown) (unknown) (no date) (unknown) (unknown) opposite - joann ng so fidgety or restless that you have been moving around a lot (units unknown) (unknown) (unknown) (no date) (unknown) (unknown) people?: somew hat difficult (units unknown) (unknown) (unknown) (no date) (unknown) (unknown) per OSE. (units unknown) (unknown) (unknown) (no date) (unknown) (unknown) polyneuropathies (un its unknown) (unknown) (unknown) (no date) (unknown) (unknown) problems? (units unknown) (unknown) (unknown) (no date) (unknown) (unknown) read the note carefully and recognize, using context, where these substitutions (units unknown) (unknown) (unknown) (no date) (unknown) (unknown) software. Alth ough every effort is made to edit content, hand cell tuber errors (units unknown) (unknown) (unknown) (no date) (unknown) (unknown) tachycardia (units unknown) (unknown) (unknown) (no date) (unknown) (unknown) takes: (units unknown) (unknown) (unknown) (no date) (unknown) (unknown) television: ne dieudonne every day (units unknown) (unknown) (unknown) (no date) (unknown) (unknown) tizanidine 4 m g tablet 4 mg PO Q8H PRN muscle spasticity #20 tabs 01/05/23 [Rx (units unknown) (unknown) (unknown) (no date) (unknown) (unknown) vitamin C / ir on 125mg plant based (units unknown) (unknown) (unknown) (no date) (unknown) (unknown) vitamin D / K2 06697/100 (units unknown) (unknown) (unknown) (no date) (unknown) (unknown) vitamin c 1000 mg PO 12/09/21 [History Confirmed 01/26/23] (units unknown) (unknown) (unknown) (no date) (unknown) (unknown) wants ongoing B12 and needles, hoping to get a formulation without additive (units unknown) (unknown) (unknown) (no date) (unknown) (unknown) way: not at all (uni ts unknown) (unknown) (unknown) (no date) (unknown) (unknown) you to do your work, take care of things at home, or get along with other (units unknown) (unknown) Result panel 36 (unknown) (no date) (unknown) (unknown) 13.0 % (unknown ) (unknown) (no date) (unknown) (unknown) 13.6 g/dl (unknown ) (unknown) (no date) (unknown) (unknown) 29.6 pg (unknown ) (unknown) (no date) (unknown) (unknown) 322 x10 3/ul (unknow n) (unknown) (no date) (unknown) (unknown) 34.5 % (unknown ) (unknown) (no date) (unknown) (unknown) 39.3 % (unknown ) (unknown) (no date) (unknown) (unknown) 4.58 x10 6/ul (unknow n) (unknown) (no date) (unknown) (unknown) 7.4 x10 3/ul (unknow n) (unknown) (no date) (unknown) (unknown) 85.8 fl (unknown ) Result panel 37 (unknown) (no date) (unknown) (unknown) > 60 ml/min (unknown ) (unknown) (no date) (unknown) (unknown) > 60 ml/min (unknown ) (unknown) (no date) (unknown) (unknown) 0.57 mg/dl (unknown ) (unknown) (no date) (unknown) (unknown) 101 mmol/l (unknown ) (unknown) (no date) (unknown) (unknown) 13 mg/dl (unknown ) (unknown) (no date) (unknown) (unknown) 138 mmol/l (unknown ) (unknown) (no date) (unknown) (unknown) 22.8 (units unknown) (unknown) (unknown) (no date) (unknown) (unknown) 27 mmol/l (unknown ) (unknown) (no date) (unknown) (unknown) 3.8 mmol/l (unknown ) (unknown) (no date) (unknown) (unknown) 9.2 mg/dl (unknown ) (unknown) (no date) (unknown) (unknown) 95 mg/dl (unknown ) (unknown) (no date) (unknown) (unknown) 95 mg/dl (unknown ) Result panel 38 (unknown) (no date) (unknown) (unknown) > 60 ml/min (unknown ) (unknown) (no date) (unknown) (unknown) > 60 ml/min (unknown ) (unknown) (no date) (unknown) (unknown) 0.57 mg/dl (unknown ) (unknown) (no date) (unknown) (unknown) 101 mmol/l (unknown ) (unknown) (no date) (unknown) (unknown) 13 mg/dl (unknown ) (unknown) (no date) (unknown) (unknown) 138 mmol/l (unknown ) (unknown) (no date) (unknown) (unknown) 22.8 (units unknown) (unknown) (unknown) (no date) (unknown) (unknown) 232 ng/ml (unknown ) (unknown) (no date) (unknown) (unknown) 27 mmol/l (unknown ) (unknown) (no date) (unknown) (unknown) 3.8 mmol/l (unknown ) (unknown) (no date) (unknown) (unknown) 9.2 mg/dl (unknown ) (unknown) (no date) (unknown) (unknown) 95 mg/dl (unknown ) (unknown) (no date) (unknown) (unknown) 95 mg/dl (unknown ) Result panel 39 (unknown) (no date) (unknown) (unknown) 51.9 ng/ml (unknown ) Result panel 40 (unknown) (no date) (unknown) (unknown) (no value) (units unknown) (unknown) (unknown) (no date) (unknown) (unknown) (1) Pathologic al fracture, right foot, initial encounter for fracture: (units unknown) (unknown) (unknown) (no date) (unknown) (unknown) (10) Sacral re gion somatic dysfunction: (units unknown) (unknown) (unknown) (no date) (unknown) (unknown) (11) Somatic dysfunction of abdominal region: (units unknown) (unknown) (unknown) (no date) (unknown) (unknown) (12) Somatic dysfunction of rib region: (units unknown) (unknown) (unknown) (no date) (unknown) (unknown) (13) Somatic dysfunction of lower extremity: (units unknown) (unknown) (unknown) (no date) (unknown) (unknown) (14) Somatic dysfunction of upper extremity: (units unknown) (unknown) (unknown) (no date) (unknown) (unknown) (2) IBS (irrit able bowel syndrome): (units unknown) (unknown) (unknown) (no date) (unknown) (unknown) (3) Vitamin D deficiency disease: (units unknown) (unknown) (unknown) (no date) (unknown) (unknown) (4) Pernicious anemia: (units unknown) (unknown) (unknown) (no date) (unknown) (unknown) (5) Cranial so matic dysfunction: (units unknown) (unknown) (unknown) (no date) (unknown) (unknown) (6) Cervical s omatic dysfunction: (units unknown) (unknown) (unknown) (no date) (unknown) (unknown) (7) Thoracic r egion somatic dysfunction: (units unknown) (unknown) (unknown) (no date) (unknown) (unknown) (8) Lumbar reg ion somatic dysfunction: (units unknown) (unknown) (unknown) (no date) (unknown) (unknown) (9) Pelvic zoey atic dysfunction: (units unknown) (unknown) (unknown) (no date) (unknown) (unknown) /23 (units unknown) (unknown) (unknown) (no date) (unknown) (unknown) [id number] (units unknown) (unknown) (unknown) (no date) (unknown) (unknown) 12/26/17 [Hist ory Confirmed 01/26/23] (units unknown) (unknown) (unknown) (no date) (unknown) (unknown) 01/26/23 1713 (units unknown) (unknown) (unknown) (no date) (unknown) (unknown) 01/26/23 (units unknown) (unknown) (unknown) (no date) (unknown) (unknown) 01/26/23] (units unknown) (unknown) (unknown) (no date) (unknown) (unknown) 03/25/22 [Rx Confirmed 01/26/23] (units unknown) (unknown) (unknown) (no date) (unknown) (unknown) 1,000 mcg IM l eft deltoid [id number] 04/08/25 [phone] [place] (units unknown) (unknown) (unknown) (no date) (unknown) (unknown) 1. Little inte rest or pleasure in doing things: not at all (units unknown) (unknown) (unknown) (no date) (unknown) (unknown) 10:59 01/26/23 (unit s unknown) (unknown) (unknown) (no date) (unknown) (unknown) 11:15 (units unknown) (unknown) (unknown) (no date) (unknown) (unknown) 12:01 (units unknown) (unknown) (unknown) (no date) (unknown) (unknown) 2. Feeling bailee n, depressed, or hopeless: several days (units unknown) (unknown) (unknown) (no date) (unknown) (unknown) 01/01/23 fall f rom step stool, saw ortho ([place]), mildly displaced (units unknown) (unknown) (unknown) (no date) (unknown) (unknown) (units unknown) (unknown) (unknown) (no date) (unknown) (unknown) 3. Trouble fal ling or staying asleep, or sleeping too much: nearly every day (units unknown) (unknown) (unknown) (no date) (unknown) (unknown) 4. Feeling tir ed or having little energy: nearly every day (units unknown) (unknown) (unknown) (no date) (unknown) (unknown) 5. Poor appeti te or overeating: not at all (units unknown) (unknown) (unknown) (no date) (unknown) (unknown) 6. Feeling bad about yourself - or that you are a failure or have let yourself (units unknown) (unknown) (unknown) (no date) (unknown) (unknown) 67 yo female presents today for OMT #2 and B12 injection (units unknown) (unknown) (unknown) (no date) (unknown) (unknown) 7. Trouble concentrating on things, such as reading the newspaper or watching (units unknown) (unknown) (unknown) (no date) (unknown) (unknown) 7th day Confucianism (u nits unknown) (unknown) (unknown) (no date) (unknown) (unknown) 8. Moving or speaking so slowly that other people could have noticed? - Or the (units unknown) (unknown) (unknown) (no date) (unknown) (unknown) 9. Thoughts th at you would be better off or of hurting yourself in some (units unknown) (unknown) (unknown) (no date) (unknown) (unknown) :15 (units unknown) (unknown) (unknown) (no date) (unknown) (unknown) Abdomen: magaly c ganglion restr (units unknown) (unknown) (unknown) (no date) (unknown) (unknown) Accompanied by : (units unknown) (unknown) (unknown) (no date) (unknown) (unknown) Acute pain of left shoulder (units unknown) (unknown) (unknown) (no date) (unknown) (unknown) Administered b y: Lani Benavides CMA on 01/26/23 11:55 (units unknown) (unknown) (unknown) (no date) (unknown) (unknown) Adult ([facility] 138/2/22/69/61/64/16 5) (units unknown) (unknown) (unknown) (no date) (unknown) (unknown) Age/Sex: 67 / F Date of Service: (units unknown) (unknown) (unknown) (no date) (unknown) (unknown) Allergic react ion to grass pollen (units unknown) (unknown) (unknown) (no date) (unknown) (unknown) Allergic to cats (un its unknown) (unknown) (unknown) (no date) (unknown) (unknown) Allergies (units unknown) (unknown) (unknown) (no date) (unknown) (unknown) [place] [address] (units unknown) (unknown) (unknown) (no date) (unknown) (unknown) Anesthesia (units unknown) (unknown) (unknown) (no date) (unknown) (unknown) Angina pectoris (uni ts unknown) (unknown) (unknown) (no date) (unknown) (unknown) Ankle pain, ch ronic (2013) (units unknown) (unknown) (unknown) (no date) (unknown) (unknown) Ankle pain, chronic (units unknown) (unknown) (unknown) (no date) (unknown) (unknown) Anxiety (units unknown) (unknown) (unknown) (no date) (unknown) (unknown) Assessment + Plan (u nits unknown) (unknown) (unknown) (no date) (unknown) (unknown) Attending Dr: Laura Parikh D.O. (units unknown) (unknown) (unknown) (no date) (unknown) (unknown) B12 (Cyanocoba l) Injection Today D51.0 - Vitamin B12 deficiency anemia due to (units unknown) (unknown) (unknown) (no date) (unknown) (unknown) B12 (IM after failing high dose sublingual) for occipital neuralgia, as well as (units unknown) (unknown) (unknown) (no date) (unknown) (unknown) BMI Refused (units unknown) (unknown) (unknown) (no date) (unknown) (unknown) BMI Screening: Yes BMI screening not done Reason: Yes Patient refused (units unknown) (unknown) (unknown) (no date) (unknown) (unknown) BP 170/88 H 180/94 H (units unknown) (unknown) (unknown) (no date) (unknown) (unknown) Basic Metaboli c Panel Today D51.0 - Vitamin B12 deficiency anemia due to (units unknown) (unknown) (unknown) (no date) (unknown) (unknown) Becoming easil y annoyed or irritable: 1 = Several days (units unknown) (unknown) (unknown) (no date) (unknown) (unknown) Being so restl ess that it is hard to sit still: 0 = Not at all (units unknown) (unknown) (unknown) (no date) (unknown) (unknown) Billing- OMT Therapy: OMT 9-10 Body Regions- [id number] (units unknown) (unknown) (unknown) (no date) (unknown) (unknown) Bipolar disorder (un its unknown) (unknown) (unknown) (no date) (unknown) (unknown) Blood Pressure Location Lt brachial Lt brachial (units unknown) (unknown) (unknown) (no date) (unknown) (unknown) Brain cancer (units unknown) (unknown) (unknown) (no date) (unknown) (unknown) Broke R foot, very painful, still not weight bearing. Seeing ortho and podiatry. (units unknown) (unknown) (unknown) (no date) (unknown) (unknown) Cervical somat ic dysfunction (units unknown) (unknown) (unknown) (no date) (unknown) (unknown) Cervical: C4 FRSL ? (units unknown) (unknown) (unknown) (no date) (unknown) (unknown) Chicken pox (units unknown) (unknown) (unknown) (no date) (unknown) (unknown) Chief Complaint (uni ts unknown) (unknown) (unknown) (no date) (unknown) (unknown) Chief Complain t: multiple pain complaints (units unknown) (unknown) (unknown) (no date) (unknown) (unknown) Child Age: 34 Hx of appendectomy (units unknown) (unknown) (unknown) (no date) (unknown) (unknown) Child Age: 37 Penicillin allergy (units unknown) (unknown) (unknown) (no date) (unknown) (unknown) Child Age: 46 Hay fever (units unknown) (unknown) (unknown) (no date) (unknown) (unknown) 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 (units unknown) (unknown) (unknown) (no date) (unknown) (unknown) Chronic left-s ided thoracic back pain (units unknown) (unknown) (unknown) (no date) (unknown) (unknown) Complete Blood Count NO DIFF Today D51.0 - Vitamin B12 deficiency anemia due to (units unknown) (unknown) (unknown) (no date) (unknown) (unknown) 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) (units unknown) (unknown) (unknown) (no date) (unknown) (unknown) Compression fr acture of body of thoracic vertebra () (units unknown) (unknown) (unknown) (no date) (unknown) (unknown) Confirmed 01/26/23] (units unknown) (unknown) (unknown) (no date) (unknown) (unknown) Cranial somati c dysfunction (units unknown) (unknown) (unknown) (no date) (unknown) (unknown) DAIRY Allergy (Intermediate, Uncoded 01/26/23 11:45) (units unknown) (unknown) (unknown) (no date) (unknown) (unknown) : 4 Acct:[id number] (units unknown) (unknown) (unknown) (no date) (unknown) (unknown) Depression (09/21/14) (units unknown) (unknown) (unknown) (no date) (unknown) (unknown) Depression (units unknown) (unknown) (unknown) (no date) (unknown) (unknown) Depression/Bip olar (159/160/161/169/177 ) (units unknown) (unknown) (unknown) (no date) (unknown) (unknown) Dept at . (units unknown) (unknown) (unknown) (no date) (unknown) (unknown) Details: (units unknown) (unknown) (unknown) (no date) (unknown) (unknown) Disabled Katharine ng Permit #1 ea 04/08/22 [Rx Confirmed 01/26/23] (units unknown) (unknown) (unknown) (no date) (unknown) (unknown) Documented By: Laura Parikh D.O. 01/26/23 1059 (units unknown) (unknown) (unknown) (no date) (unknown) (unknown) Dose Route Adm in Location Lot Number Expiration Date NDC (units unknown) (unknown) (unknown) (no date) (unknown) (unknown) Due for PCV13, TDaP and Shingrix. (units unknown) (unknown) (unknown) (no date) (unknown) (unknown) E87.6 - Hypokalemia (units unknown) (unknown) (unknown) (no date) (unknown) (unknown) Environmental allergies (units unknown) (unknown) (unknown) (no date) (unknown) (unknown) Esophageal stricture (units unknown) (unknown) (unknown) (no date) (unknown) (unknown) Esophagitis (units unknown) (unknown) (unknown) (no date) (unknown) (unknown) Exam Narrative (unit s unknown) (unknown) (unknown) (no date) (unknown) (unknown) Exam Narrative: (uni ts unknown) (unknown) (unknown) (no date) (unknown) (unknown) Exam (units unknown) (unknown) (unknown) (no date) (unknown) (unknown) Family History (Updated 06/08/18 @ 12:37 by Rabia Jacob) (units unknown) (unknown) (unknown) (no date) (unknown) (unknown) Family Practic e Office Visit (units unknown) (unknown) (unknown) (no date) (unknown) (unknown) Feeling afraid as if something awful might happen: 0 = Not at all (units unknown) (unknown) (unknown) (no date) (unknown) (unknown) Feeling nervou s, anxious, or on edge: 1 = Several days (units unknown) (unknown) (unknown) (no date) (unknown) (unknown) Ferritin Today D51.0 - Vitamin B12 deficiency anemia due to intrinsic factor (units unknown) (unknown) (unknown) (no date) (unknown) (unknown) Fibromyalgia (units unknown) (unknown) (unknown) (no date) (unknown) (unknown) [facility] (units unknown) (unknown) (unknown) (no date) (unknown) (unknown) Fine) See Rx Instructions .Route .COMPLEX #200 ea 01/15/23 [Rx Confirmed (units unknown) (unknown) (unknown) (no date) (unknown) (unknown) Foot pain (2011) (un its unknown) (unknown) (unknown) (no date) (unknown) (unknown) ROSA-7 (units unknown) (unknown) (unknown) (no date) (unknown) (unknown) Gastropathy (units unknown) (unknown) (unknown) (no date) (unknown) (unknown) General: pleas ant, cooperative, +central adiposity, sitting comfortably in no (units unknown) (unknown) (unknown) (no date) (unknown) (unknown) Gets relief with OMT (units unknown) (unknown) (unknown) (no date) (unknown) (unknown) Grandmother Di abetes mellitus (units unknown) (unknown) (unknown) (no date) (unknown) (unknown) HPI (units unknown) (unknown) (unknown) (no date) (unknown) (unknown) Hayfever (units unknown) (unknown) (unknown) (no date) (unknown) (unknown) Head: b/l OM r estr, SBS compr (units unknown) (unknown) (unknown) (no date) (unknown) (unknown) Health Managem ent reviewed with patient: Yes (units unknown) (unknown) (unknown) (no date) (unknown) (unknown) Health Management (u nits unknown) (unknown) (unknown) (no date) (unknown) (unknown) Heart disease (units unknown) (unknown) (unknown) (no date) (unknown) (unknown) Height 5 ft 3.5 in ( units unknown) (unknown) (unknown) (no date) (unknown) (unknown) Hemorrhoids (units unknown) (unknown) (unknown) (no date) (unknown) (unknown) Hiatal hernia (units unknown) (unknown) (unknown) (no date) (unknown) (unknown) High cholesterol (un its unknown) (unknown) (unknown) (no date) (unknown) (unknown) History of candice betes mellitus (units unknown) (unknown) (unknown) (no date) (unknown) (unknown) History of fundoplication (units unknown) (unknown) (unknown) (no date) (unknown) (unknown) History of rep air of hiatal hernia (11/2011) (units unknown) (unknown) (unknown) (no date) (unknown) (unknown) History of tonsillectomy (1971) (units unknown) (unknown) (unknown) (no date) (unknown) (unknown) Hives (units unknown) (unknown) (unknown) (no date) (unknown) (unknown) Hypertension (units unknown) (unknown) (unknown) (no date) (unknown) (unknown) Hypothyroidism (unit s unknown) (unknown) (unknown) (no date) (unknown) (unknown) IBS (irritable bowel syndrome) (units unknown) (unknown) (unknown) (no date) (unknown) (unknown) 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 unknown) (unknown) (unknown) (no date) (unknown) (unknown) If you checked off any problems, how difficult have these problems made it for (units unknown) (unknown) (unknown) (no date) (unknown) (unknown) Informed conse nt given: Yes (units unknown) (unknown) (unknown) (no date) (unknown) (unknown) Intake Note: (units unknown) (unknown) (unknown) (no date) (unknown) (unknown) Intake perform ed by: Lani Benavides (units unknown) (unknown) (unknown) (no date) (unknown) (unknown) Intake (units unknown) (unknown) (unknown) (no date) (unknown) (unknown) Intake- Kasie [facility] Staff (units unknown) (unknown) (unknown) (no date) (unknown) (unknown) Iron deficienc y, E87.6 - Hypokalemia (units unknown) (unknown) (unknown) (no date) (unknown) (unknown) Irritable julien l syndrome type: with both diarrhea and constipation (units unknown) (unknown) (unknown) (no date) (unknown) (unknown) Last Menstural Cycle + Details (units unknown) (unknown) (unknown) (no date) (unknown) (unknown) Leg worse compensating for foot positions (units unknown) (unknown) (unknown) (no date) (unknown) (unknown) Liver cancer (units unknown) (unknown) (unknown) (no date) (unknown) (unknown) Loc: [facility] (units unknown) (unknown) (unknown) (no date) (unknown) (unknown) Lower extremit ies: R FH ant (units unknown) (unknown) (unknown) (no date) (unknown) (unknown) Lumbar facet arthropathy (2013) (units unknown) (unknown) (unknown) (no date) (unknown) (unknown) Lumbar region somatic dysfunction (units unknown) (unknown) (unknown) (no date) (unknown) (unknown) Lumbar: L1 FRSR (uni ts unknown) (unknown) (unknown) (no date) (unknown) (unknown) Lung cancer (units unknown) (unknown) (unknown) (no date) (unknown) (unknown) Managing IBS a nd pernicious anemia with supplementation and dietary (units unknown) (unknown) (unknown) (no date) (unknown) (unknown) 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) (unknown) (unknown) (no date) (unknown) (unknown) Medical Histor y (Updated 01/26/23 @ 11:31 by Laura Parikh DO) (units unknown) (unknown) (unknown) (no date) (unknown) (unknown) Medications (units unknown) (unknown) (unknown) (no date) (unknown) (unknown) Mother d Diabetes mellitus (units unknown) (unknown) (unknown) (no date) (unknown) (unknown) Neuro: alert a nd oriented to person and situation (units unknown) (unknown) (unknown) (no date) (unknown) (unknown) Not being able to stop or control worryin = Several days (units unknown) (unknown) (unknown) (no date) (unknown) (unknown) OMM Procedure Notes: (units unknown) (unknown) (unknown) (no date) (unknown) (unknown) OMT with PH an d avoiding R distal LE, focus on autonomic nervous system today (units unknown) (unknown) (unknown) (no date) (unknown) (unknown) Obesity (units unknown) (unknown) (unknown) (no date) (unknown) (unknown) Office Meds (units unknown) (unknown) (unknown) (no date) (unknown) (unknown) Office Procedures (u nits unknown) (unknown) (unknown) (no date) (unknown) (unknown) Orders (units unknown) (unknown) (unknown) (no date) (unknown) (unknown) Orders: (units unknown) (unknown) (unknown) (no date) (unknown) (unknown) Osteoarthritis (2012) (units unknown) (unknown) (unknown) (no date) (unknown) (unknown) Osteopathic Structural Exam: (units unknown) (unknown) (unknown) (no date) (unknown) (unknown) Osteoporosis o f lumbar spine (units unknown) (unknown) (unknown) (no date) (unknown) (unknown) Osteoporosis (units unknown) (unknown) (unknown) (no date) (unknown) (unknown) Other Menstrua l Period: Postmenopausal (units unknown) (unknown) (unknown) (no date) (unknown) (unknown) Over the last 2 weeks, how often have you been bothered by any of the following (units unknown) (unknown) (unknown) (no date) (unknown) (unknown) Oxygen Deliver y Method room air room air (units unknown) (unknown) (unknown) (no date) (unknown) (unknown) PFSH (units unknown) (unknown) (unknown) (no date) (unknown) (unknown) PH, cranial, G OT, BLT, MFR (units unknown) (unknown) (unknown) (no date) (unknown) (unknown) PHQ-9 (units unknown) (unknown) (unknown) (no date) (unknown) (unknown) POC Urine Dip Today R30.0 - Dysuria (units unknown) (unknown) (unknown) (no date) (unknown) (unknown) PTSD (post-tra umatic stress disorder) (units unknown) (unknown) (unknown) (no date) (unknown) (unknown) Patient: Whitley Oakes MR#: M (units unknown) (unknown) (unknown) (no date) (unknown) (unknown) Pelvic somatic dysfunction (units unknown) (unknown) (unknown) (no date) (unknown) (unknown) Pelvis: L ant (units unknown) (unknown) (unknown) (no date) (unknown) (unknown) Performing Pro vider: Laura Parikh DO (units unknown) (unknown) (unknown) (no date) (unknown) (unknown) Pernicious anemia (u nits unknown) (unknown) (unknown) (no date) (unknown) (unknown) Personality disorder (units unknown) (unknown) (unknown) (no date) (unknown) (unknown) Plan (units unknown) (unknown) (unknown) (no date) (unknown) (unknown) Position Sitti ng Sitting (units unknown) (unknown) (unknown) (no date) (unknown) (unknown) Psych: well ke mpt, speech and movement normal, normal affect (units unknown) (unknown) (unknown) (no date) (unknown) (unknown) Pulse 111 H 97 H (un its unknown) (unknown) (unknown) (no date) (unknown) (unknown) Pulse Oximetry (%) 98 97 (units unknown) (unknown) (unknown) (no date) (unknown) (unknown) Pulse Source M onitor Monitor (units unknown) (unknown) (unknown) (no date) (unknown) (unknown) [id number] #1 mL 08/04/22 [Rx Confirmed 01/26/23] (units unknown) (unknown) (unknown) (no date) (unknown) (unknown) Qualified Code (s): K58.2 - Mixed irritable bowel syndrome (units unknown) (unknown) (unknown) (no date) (unknown) (unknown) Qualifiers: (units unknown) (unknown) (unknown) (no date) (unknown) (unknown) Quality Reporting (u nits unknown) (unknown) (unknown) (no date) (unknown) (unknown) Questionnaires (unit s unknown) (unknown) (unknown) (no date) (unknown) (unknown) RLS (restless legs syndrome) (units unknown) (unknown) (unknown) (no date) (unknown) (unknown) Reason For Visit (un its unknown) (unknown) (unknown) (no date) (unknown) (unknown) Resp: normal e ffort, able to speak in complete sentences (units unknown) (unknown) (unknown) (no date) (unknown) (unknown) Results (units unknown) (unknown) (unknown) (no date) (unknown) (unknown) Ribcage: R2-3 post, b/l 12 exh (units unknown) (unknown) (unknown) (no date) (unknown) (unknown) Right shoulder pain (units unknown) (unknown) (unknown) (no date) (unknown) (unknown) SWELLING (units unknown) (unknown) (unknown) (no date) (unknown) (unknown) Sacral region somatic dysfunction (units unknown) (unknown) (unknown) (no date) (unknown) (unknown) Sacroiliitis (2012) (units unknown) (unknown) (unknown) (no date) (unknown) (unknown) Sacrum: b/l F, L>R SI restr (units unknown) (unknown) (unknown) (no date) (unknown) (unknown) Seborrheic keratosis (units unknown) (unknown) (unknown) (no date) (unknown) (unknown) Seeing podiatr y, getting splint re foot fracture. Still not weighted, will re (units unknown) (unknown) (unknown) (no date) (unknown) (unknown) Shoulders and neck worse having to use wheel chair (units unknown) (unknown) (unknown) (no date) (unknown) (unknown) Signed By: <Electronically signed by Laura Parikh D.O.> (units unknown) (unknown) (unknown) (no date) (unknown) (unknown) Signed (units unknown) (unknown) (unknown) (no date) (unknown) (unknown) Sister d Diabetes mellitus (units unknown) (unknown) (unknown) (no date) (unknown) (unknown) Smoking Status : Former smoker (units unknown) (unknown) (unknown) (no date) (unknown) (unknown) Source: [place]velo ped by Drs. Michael Kelsey, Anni Gunderson, Jay Spencer (units unknown) (unknown) (unknown) (no date) (unknown) (unknown) Status post colonoscopy (09/2019) (units unknown) (unknown) (unknown) (no date) (unknown) (unknown) Status post endoscopy (12/2019) (units unknown) (unknown) (unknown) (no date) (unknown) (unknown) Status post reduction mammoplasty (07/2010) (units unknown) (unknown) (unknown) (no date) (unknown) (unknown) Status: Acute (units unknown) (unknown) (unknown) (no date) (unknown) (unknown) Status: Chronic (uni ts unknown) (unknown) (unknown) (no date) (unknown) (unknown) Stroke (units unknown) (unknown) (unknown) (no date) (unknown) (unknown) Substance abuse (uni ts unknown) (unknown) (unknown) (no date) (unknown) (unknown) Surgical Histo ry (Updated 01/18/20 @ 15:38 by Summer Price DO) (units unknown) (unknown) (unknown) (no date) (unknown) (unknown) Temp 96.8 F L (units unknown) (unknown) (unknown) (no date) (unknown) (unknown) Temp Source Te mporal Artery Scan (units unknown) (unknown) (unknown) (no date) (unknown) (unknown) This note may have been all or partially generated using voice recognition (units unknown) (unknown) (unknown) (no date) (unknown) (unknown) Thoracic regio n somatic dysfunction (units unknown) (unknown) (unknown) (no date) (unknown) (unknown) 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, T7 FRSR (units unknown) (unknown) (unknown) (no date) (unknown) (unknown) Time Coding Mi nutes Spent: (must be on same date of service/appointment) (units unknown) (unknown) (unknown) (no date) (unknown) (unknown) Time Spent (units unknown) (unknown) (unknown) (no date) (unknown) (unknown) Tinnitus (units unknown) (unknown) (unknown) (no date) (unknown) (unknown) Tobacco + Subs tance Use (units unknown) (unknown) (unknown) (no date) (unknown) (unknown) Tobacco Status (unit s unknown) (unknown) (unknown) (no date) (unknown) (unknown) Total ROSA-7 sc ore (0-4 normal; 5-9 mild; 10-14 moderate; 15-21 severe): 4 (units unknown) (unknown) (unknown) (no date) (unknown) (unknown) Total score: 11 (uni ts unknown) (unknown) (unknown) (no date) (unknown) (unknown) Total visit ti me apart from OMT 31 minutes today, including 20 minutes face to (units unknown) (unknown) (unknown) (no date) (unknown) (unknown) Trouble relaxi n = Not at all (units unknown) (unknown) (unknown) (no date) (unknown) (unknown) Tubular adenom a of colon (12/2014) (units unknown) (unknown) (unknown) (no date) (unknown) (unknown) Upper extremit ies: b/l scapulothoracic restr and levator scap htn (units unknown) (unknown) (unknown) (no date) (unknown) (unknown) Urine Appearan ce Clear Last Edit by Lani Benavides CMA on 01/26/23 11:15 (units unknown) (unknown) (unknown) (no date) (unknown) (unknown) Urine Bilirubi n Negative Last Edit by Lani Benavides, [facility] on 01/26/23 11:15 (units unknown) (unknown) (unknown) (no date) (unknown) (unknown) Urine Blood +- 10 Ashish/uL Last Edit by Lani Benavides, [facility] on 01/26/23 11:15 (units unknown) (unknown) (unknown) (no date) (unknown) (unknown) Urine Color Ye llow Last Edit by Lani Benavides, [facility] on 01/26/23 11:15 (units unknown) (unknown) (unknown) (no date) (unknown) (unknown) Urine Dipstick (unit s unknown) (unknown) (unknown) (no date) (unknown) (unknown) Urine Glucose Negative mg/dL Last Edit by Lani Benavides, [facility] on 01/26/23 11 (units unknown) (unknown) (unknown) (no date) (unknown) (unknown) Urine Ketones Negative Last Edit by Lani Benavides, [facility] on 01/26/23 11:15 (units unknown) (unknown) (unknown) (no date) (unknown) (unknown) Urine Leukocyt e Esterase Negative Last Edit by Lani Benavides, [facility] on 01/26 (units unknown) (unknown) (unknown) (no date) (unknown) (unknown) Urine Nitrate Negative Last Edit by Lani Benavides, [facility] on 01/26/23 11:15 (units unknown) (unknown) (unknown) (no date) (unknown) (unknown) Urine Protein Negative Last Edit by Lani Benavides, [facility] on 01/26/23 11:15 (units unknown) (unknown) (unknown) (no date) (unknown) (unknown) Urine Specific [place] 1.010 Last Edit by Lani Benavides, [facility] on 01/26/23 (units unknown) (unknown) (unknown) (no date) (unknown) (unknown) Urine Urobilin ogen - 0.2 mg/dL Last Edit by Lani Benavides, [facility] on units unknown) (unknown) (unknown) (no date) (unknown) (unknown) Urine pH 7.0 L ast Edit by Lani Benavides, [facility] on 01/26/23 11:15 (units unknown) (unknown) (unknown) (no date) (unknown) (unknown) Visit Reasons: OMT #2 (units unknown) (unknown) (unknown) (no date) (unknown) (unknown) Vitals (units unknown) (unknown) (unknown) (no date) (unknown) (unknown) Vitamin D 25 H ydroxy (D3) Today D51.0 - Vitamin B12 deficiency anemia due to (units unknown) (unknown) (unknown) (no date) (unknown) (unknown) Albert's (units unknown) (unknown) (unknown) (no date) (unknown) (unknown) Worrying too m uch about different things: 1 = Several days (units unknown) (unknown) (unknown) (no date) (unknown) (unknown) [Rx Confirmed 01/26/23] (units unknown) (unknown) (unknown) (no date) (unknown) (unknown) acetaminophen 300 mg-codeine 30 mg tablet 1 tab PO Q6H PRN pain #5 tabs 11/17/22 (units unknown) (unknown) (unknown) (no date) (unknown) (unknown) acute distress , has crutch for ambulation (units unknown) (unknown) (unknown) (no date) (unknown) (unknown) albuterol [ALBUTEROL] Allergy (Unknown, Verified 01/26/23 11:45) (units unknown) (unknown) (unknown) (no date) (unknown) (unknown) and colleagues , with an educational tej from [employer]. (units unknown) (unknown) (unknown) (no date) (unknown) (unknown) and your famil y down: several days (units unknown) (unknown) (unknown) (no date) (unknown) (unknown) bladder pain (units unknown) (unknown) (unknown) (no date) (unknown) (unknown) cholecalcifero l (vitamin D3) 250 mcg (10,000 unit) tablet 10,000 tab PO QDAY ##0 (units unknown) (unknown) (unknown) (no date) (unknown) (unknown) clonazepam 1 m g tablet 0.5 mg PO BID PRN anxiety #10 tabs 01/26/23 [Rx] (units unknown) (unknown) (unknown) (no date) (unknown) (unknown) congestion and stomach problems (units unknown) (unknown) (unknown) (no date) (unknown) (unknown) coordinating care. ( units unknown) (unknown) (unknown) (no date) (unknown) (unknown) cyanocobalamin (vitamin B-12) 1,000 mcg/mL injection solution 1,000 mcg IM (units unknown) (unknown) (unknown) (no date) (unknown) (unknown) cyanocobalamin (vitamin B-12) (units unknown) (unknown) (unknown) (no date) (unknown) (unknown) deficiency, E5 5.9 - Vitamin D deficiency, unspecified, E61.1 - Iron deficiency, (units unknown) (unknown) (unknown) (no date) (unknown) (unknown) dexamethasone Adverse Reaction (Severe, Verified 01/26/23 11:45) (units unknown) (unknown) (unknown) (no date) (unknown) (unknown) did comprehens cassy stool analysis through [employer] too (units unknown) (unknown) (unknown) (no date) (unknown) (unknown) did have SIBO breath through [facility] but unable to get results because was Dr (units unknown) (unknown) (unknown) (no date) (unknown) (unknown) eval after nex t ortho f/u. (units unknown) (unknown) (unknown) (no date) (unknown) (unknown) extraarticular R calcaneal fracture on XR and CT, plan on limit weight bearing, (units unknown) (unknown) (unknown) (no date) (unknown) (unknown) face on histor y, exam, and counseling, and 11 minutes reviewing, charting, and (units unknown) (unknown) (unknown) (no date) (unknown) (unknown) folic acid 5 m g PO 04/08/22 [History Confirmed 01/26/23] (units unknown) (unknown) (unknown) (no date) (unknown) (unknown) folic acid (units unknown) (unknown) (unknown) (no date) (unknown) (unknown) gastritis flares (un its unknown) (unknown) (unknown) (no date) (unknown) (unknown) gentle iron PO 12/09/21 [History Confirmed 01/26/23] (units unknown) (unknown) (unknown) (no date) (unknown) (unknown) gluten [GLUTEN ] Allergy (Unknown, Verified 01/26/23 11:45) (units unknown) (unknown) (unknown) (no date) (unknown) (unknown) gluten free vegan (u nits unknown) (unknown) (unknown) (no date) (unknown) (unknown) grass pollen A llergy (Severe, Verified 01/26/23 11:45) (units unknown) (unknown) (unknown) (no date) (unknown) (unknown) have occurred. If there are any questions, please contact the Medical Records (units unknown) (unknown) (unknown) (no date) (unknown) (unknown) hydromorphone [HYDROMORPHONE] Allergy (Mild, Verified 01/26/23 11:45) (units unknown) (unknown) (unknown) (no date) (unknown) (unknown) hydroxocobalam in 1,000 mcg/mL intramuscular solution 500 mcg (0.5 mL) IM BID #30 (units unknown) (unknown) (unknown) (no date) (unknown) (unknown) insulin syringe-needle U-100 1 mL 30 gauge x 1/2' (BD Insulin Syringe Ultra (units unknown) (unknown) (unknown) (no date) (unknown) (unknown) intrinsic fact or deficiency (units unknown) (unknown) (unknown) (no date) (unknown) (unknown) intrinsic fact or deficiency, E53.9 - Vitamin B deficiency, unspecified (units unknown) (unknown) (unknown) (no date) (unknown) (unknown) intrinsic fact or deficiency, E55.9 - Vitamin D deficiency, unspecified, E61.1 (units unknown) (unknown) (unknown) (no date) (unknown) (unknown) iodine and osmany enium for thyroid, rather than taking thyroid (units unknown) (unknown) (unknown) (no date) (unknown) (unknown) k2 with vit D PO 12/09/21 [History Confirmed 01/26/23] (units unknown) (unknown) (unknown) (no date) (unknown) (unknown) lithium [LITHI UM] Allergy (Unknown, Verified 01/26/23 11:45) (units unknown) (unknown) (unknown) (no date) (unknown) (unknown) loratadine 10 mg tablet (Claritin) 10 mg PO DAILY PRN allergic symptoms #90 tabs (units unknown) (unknown) (unknown) (no date) (unknown) (unknown) mL 11/27/22 [R x Confirmed 01/26/23] (units unknown) (unknown) (unknown) (no date) (unknown) (unknown) magnesium (units unknown) (unknown) (unknown) (no date) (unknown) (unknown) may occur. Occasional wrong-word or 'sound-alike' substitutions may have (units unknown) (unknown) (unknown) (no date) (unknown) (unknown) modifications. Labs today and B12 injection. (units unknown) (unknown) (unknown) (no date) (unknown) (unknown) more than usua l: not at all (units unknown) (unknown) (unknown) (no date) (unknown) (unknown) occurred due t o the inherent limitations of voice recognition software. Please (units unknown) (unknown) (unknown) (no date) (unknown) (unknown) ondansetron HC l 4 mg tablet (Zofran) 4 mg PO Q4HP PRN #20 tabs 11/25/17 [Rx (units unknown) (unknown) (unknown) (no date) (unknown) (unknown) opposite - joann ng so fidgety or restless that you have been moving around a lot (units unknown) (unknown) (unknown) (no date) (unknown) (unknown) people?: somew hat difficult (units unknown) (unknown) (unknown) (no date) (unknown) (unknown) per OSE. (units unknown) (unknown) (unknown) (no date) (unknown) (unknown) polyneuropathies (un its unknown) (unknown) (unknown) (no date) (unknown) (unknown) problems? (units unknown) (unknown) (unknown) (no date) (unknown) (unknown) read the note carefully and recognize, using context, where these substitutions (units unknown) (unknown) (unknown) (no date) (unknown) (unknown) mily palmer and brianna, recheck XR 1m. (units unknown) (unknown) (unknown) (no date) (unknown) (unknown) software. Alth ough every effort is made to edit content, hand cell tuber errors (units unknown) (unknown) (unknown) (no date) (unknown) (unknown) tachycardia (units unknown) (unknown) (unknown) (no date) (unknown) (unknown) takes: (units unknown) (unknown) (unknown) (no date) (unknown) (unknown) television: ne dieudonne every day (units unknown) (unknown) (unknown) (no date) (unknown) (unknown) tizanidine 4 m g tablet 4 mg PO Q8H PRN muscle spasticity #20 tabs 01/05/23 [Rx (units unknown) (unknown) (unknown) (no date) (unknown) (unknown) vitamin C / ir on 125mg plant based (units unknown) (unknown) (unknown) (no date) (unknown) (unknown) vitamin D / K2 83563/100 (units unknown) (unknown) (unknown) (no date) (unknown) (unknown) vitamin c 1000 mg PO 12/09/21 [History Confirmed 01/26/23] (units unknown) (unknown) (unknown) (no date) (unknown) (unknown) wants ongoing B12 and needles, hoping to get a formulation without additive (units unknown) (unknown) (unknown) (no date) (unknown) (unknown) way: not at all (uni ts unknown) (unknown) (unknown) (no date) (unknown) (unknown) you to do your work, take care of things at home, or get along with other (units unknown) (unknown) Result panel 41 (unknown) (no date) (unknown) (unknown) (no value) (units unknown) (unknown) (unknown) (no date) (unknown) (unknown) (1) Pathologic al fracture, right foot, initial encounter for fracture: (units unknown) (unknown) (unknown) (no date) (unknown) (unknown) (10) Sacral re gion somatic dysfunction: (units unknown) (unknown) (unknown) (no date) (unknown) (unknown) (11) Somatic dysfunction of abdominal region: (units unknown) (unknown) (unknown) (no date) (unknown) (unknown) (12) Somatic dysfunction of rib region: (units unknown) (unknown) (unknown) (no date) (unknown) (unknown) (13) Somatic dysfunction of lower extremity: (units unknown) (unknown) (unknown) (no date) (unknown) (unknown) (14) Somatic dysfunction of upper extremity: (units unknown) (unknown) (unknown) (no date) (unknown) (unknown) (2) IBS (irrit able bowel syndrome): (units unknown) (unknown) (unknown) (no date) (unknown) (unknown) (3) Vitamin D deficiency disease: (units unknown) (unknown) (unknown) (no date) (unknown) (unknown) (4) Pernicious anemia: (units unknown) (unknown) (unknown) (no date) (unknown) (unknown) (5) Cranial so matic dysfunction: (units unknown) (unknown) (unknown) (no date) (unknown) (unknown) (6) Cervical s omatic dysfunction: (units unknown) (unknown) (unknown) (no date) (unknown) (unknown) (7) Thoracic r egion somatic dysfunction: (units unknown) (unknown) (unknown) (no date) (unknown) (unknown) (8) Lumbar reg ion somatic dysfunction: (units unknown) (unknown) (unknown) (no date) (unknown) (unknown) (9) Pelvic zoey atic dysfunction: (units unknown) (unknown) (unknown) (no date) (unknown) (unknown) ADDENDUM (units unknown) (unknown) (unknown) (no date) (unknown) (unknown) (units unknown) (unknown) (unknown) (no date) (unknown) (unknown) [id number] (units unknown) (unknown) (unknown) (no date) (unknown) (unknown) 12/26/17 [Hist ory Confirmed 01/26/23] (units unknown) (unknown) (unknown) (no date) (unknown) (unknown) 01/26/23 1713 (units unknown) (unknown) (unknown) (no date) (unknown) (unknown) 01/26/23 (units unknown) (unknown) (unknown) (no date) (unknown) (unknown) 01/26/23] (units unknown) (unknown) (unknown) (no date) (unknown) (unknown) 01/29/23 0806 (units unknown) (unknown) (unknown) (no date) (unknown) (unknown) 03/25/22 [Rx Confirmed 01/26/23] (units unknown) (unknown) (unknown) (no date) (unknown) (unknown) 1,000 mcg IM l eft deltoid [id number] 04/08/25 [id number] VITRUVESTUARDO JHONATHANJo-Ann (units unknown) (unknown) (unknown) (no date) (unknown) (unknown) 1. Little inte rest or pleasure in doing things: not at all (units unknown) (unknown) (unknown) (no date) (unknown) (unknown) 10:59 01/26/23 (unit s unknown) (unknown) (unknown) (no date) (unknown) (unknown) 11:15 (units unknown) (unknown) (unknown) (no date) (unknown) (unknown) 12:01 (units unknown) (unknown) (unknown) (no date) (unknown) (unknown) 2. Feeling bailee n, depressed, or hopeless: several days (units unknown) (unknown) (unknown) (no date) (unknown) (unknown) 01/01/23 fall f rom step stool, saw ortho ([place]), mildly displaced (units unknown) (unknown) (unknown) (no date) (unknown) (unknown) (units unknown) (unknown) (unknown) (no date) (unknown) (unknown) 3. Trouble fal ling or staying asleep, or sleeping too much: nearly every day (units unknown) (unknown) (unknown) (no date) (unknown) (unknown) 4. Feeling tir ed or having little energy: nearly every day (units unknown) (unknown) (unknown) (no date) (unknown) (unknown) 5. Poor appeti te or overeating: not at all (units unknown) (unknown) (unknown) (no date) (unknown) (unknown) 6. Feeling bad about yourself - or that you are a failure or have let yourself (units unknown) (unknown) (unknown) (no date) (unknown) (unknown) 67 yo female presents today for OMT #2 and B12 injection (units unknown) (unknown) (unknown) (no date) (unknown) (unknown) 7. Trouble concentrating on things, such as reading the newspaper or watching (units unknown) (unknown) (unknown) (no date) (unknown) (unknown) 7th day Confucianism (u nits unknown) (unknown) (unknown) (no date) (unknown) (unknown) 8. Moving or speaking so slowly that other people could have noticed? - Or the (units unknown) (unknown) (unknown) (no date) (unknown) (unknown) 9. Thoughts th at you would be better off or of hurting yourself in some (units unknown) (unknown) (unknown) (no date) (unknown) (unknown) :15 (units unknown) (unknown) (unknown) (no date) (unknown) (unknown) Abdomen: magaly c ganglion restr (units unknown) (unknown) (unknown) (no date) (unknown) (unknown) Accompanied by : (units unknown) (unknown) (unknown) (no date) (unknown) (unknown) Acute pain of left shoulder (units unknown) (unknown) (unknown) (no date) (unknown) (unknown) Addendum Docum ented By: Laura Parikh D.O. (units unknown) (unknown) (unknown) (no date) (unknown) (unknown) Addendum Shonna d By: <Electronically signed by Laura Parikh D.O.> (units unknown) (unknown) (unknown) (no date) (unknown) (unknown) Administered b y: Lani Benavides CMA on 01/26/23 11:55 (units unknown) (unknown) (unknown) (no date) (unknown) (unknown) Adult (CMS 138/2/22/69/61/64/16 5) (units unknown) (unknown) (unknown) (no date) (unknown) (unknown) Age/Sex: 67 / F Date of Service: (units unknown) (unknown) (unknown) (no date) (unknown) (unknown) Allergic react ion to grass pollen (units unknown) (unknown) (unknown) (no date) (unknown) (unknown) Allergic to cats (un its unknown) (unknown) (unknown) (no date) (unknown) (unknown) Allergies (units unknown) (unknown) (unknown) (no date) (unknown) (unknown) [place] [id number] (units unknown) (unknown) (unknown) (no date) (unknown) (unknown) Anesthesia (units unknown) (unknown) (unknown) (no date) (unknown) (unknown) Angina pectoris (uni ts unknown) (unknown) (unknown) (no date) (unknown) (unknown) Ankle pain, ch ronic (2014) (units unknown) (unknown) (unknown) (no date) (unknown) (unknown) Ankle pain, chronic (units unknown) (unknown) (unknown) (no date) (unknown) (unknown) Anxiety (units unknown) (unknown) (unknown) (no date) (unknown) (unknown) Assessment + Plan (u nits unknown) (unknown) (unknown) (no date) (unknown) (unknown) Attending Dr: Laura Parikh D.O. (units unknown) (unknown) (unknown) (no date) (unknown) (unknown) B12 (Cyanocoba l) Injection Today D51.0 - Vitamin B12 deficiency anemia due to (units unknown) (unknown) (unknown) (no date) (unknown) (unknown) B12 (IM after failing high dose sublingual) for occipital neuralgia, as well as (units unknown) (unknown) (unknown) (no date) (unknown) (unknown) BMI Refused (units unknown) (unknown) (unknown) (no date) (unknown) (unknown) BMI Screening: Yes BMI screening not done Reason: Yes Patient refused (units unknown) (unknown) (unknown) (no date) (unknown) (unknown) BP 170/88 H 180/94 H (units unknown) (unknown) (unknown) (no date) (unknown) (unknown) Basic Metaboli c Panel Today D51.0 - Vitamin B12 deficiency anemia due to (units unknown) (unknown) (unknown) (no date) (unknown) (unknown) Becoming easil y annoyed or irritable: 1 = Several days (units unknown) (unknown) (unknown) (no date) (unknown) (unknown) Being so restl ess that it is hard to sit still: 0 = Not at all (units unknown) (unknown) (unknown) (no date) (unknown) (unknown) Billing- OMT Therapy: OMT 9-10 Body Regions- 12547 (units unknown) (unknown) (unknown) (no date) (unknown) (unknown) Bipolar disorder (un its unknown) (unknown) (unknown) (no date) (unknown) (unknown) Blood Pressure Location Lt brachial Lt brachial (units unknown) (unknown) (unknown) (no date) (unknown) (unknown) Brain cancer (units unknown) (unknown) (unknown) (no date) (unknown) (unknown) Broke R foot, very painful, still not weight bearing. Seeing ortho and podiatry. (units unknown) (unknown) (unknown) (no date) (unknown) (unknown) Cervical somat ic dysfunction (units unknown) (unknown) (unknown) (no date) (unknown) (unknown) Cervical: C4 FRSL ? (units unknown) (unknown) (unknown) (no date) (unknown) (unknown) Chicken pox (units unknown) (unknown) (unknown) (no date) (unknown) (unknown) Chief Complaint (uni ts unknown) (unknown) (unknown) (no date) (unknown) (unknown) Chief Complain t: multiple pain complaints (units unknown) (unknown) (unknown) (no date) (unknown) (unknown) Child Age: 34 Hx of appendectomy (units unknown) (unknown) (unknown) (no date) (unknown) (unknown) Child Age: 37 Penicillin allergy (units unknown) (unknown) (unknown) (no date) (unknown) (unknown) Child Age: 46 Hay fever (units unknown) (unknown) (unknown) (no date) (unknown) (unknown) 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 (units unknown) (unknown) (unknown) (no date) (unknown) (unknown) Chronic left-s ided thoracic back pain (units unknown) (unknown) (unknown) (no date) (unknown) (unknown) Complete Blood Count NO DIFF Today D51.0 - Vitamin B12 deficiency anemia due to (units unknown) (unknown) (unknown) (no date) (unknown) (unknown) 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 (-12/2016) (units unknown) (unknown) (unknown) (no date) (unknown) (unknown) Compression fr acture of body of thoracic vertebra () (units unknown) (unknown) (unknown) (no date) (unknown) (unknown) Confirmed 01/26/23] (units unknown) (unknown) (unknown) (no date) (unknown) (unknown) Cranial somati c dysfunction (units unknown) (unknown) (unknown) (no date) (unknown) (unknown) DAIRY Allergy (Intermediate, Uncoded 01/26/23 11:45) (units unknown) (unknown) (unknown) (no date) (unknown) (unknown) : 4 Acct:[id number] (units unknown) (unknown) (unknown) (no date) (unknown) (unknown) Depression (09/21/14) (units unknown) (unknown) (unknown) (no date) (unknown) (unknown) Depression (units unknown) (unknown) (unknown) (no date) (unknown) (unknown) Depression/Bip olar (159/160/161/169/177 ) (units unknown) (unknown) (unknown) (no date) (unknown) (unknown) Dept at . (units unknown) (unknown) (unknown) (no date) (unknown) (unknown) Details: (units unknown) (unknown) (unknown) (no date) (unknown) (unknown) [facility] Permit #1 ea 04/08/22 [Rx Confirmed 01/26/23] (units unknown) (unknown) (unknown) (no date) (unknown) (unknown) Documented By: Laura Parikh D.O. 01/26/23 1059 (units unknown) (unknown) (unknown) (no date) (unknown) (unknown) Dose Route Adm in Location Lot Number Expiration Date NDC (units unknown) (unknown) (unknown) (no date) (unknown) (unknown) Due for PCV13, TDaP and Shingrix. (units unknown) (unknown) (unknown) (no date) (unknown) (unknown) E87.6 - Hypokalemia (units unknown) (unknown) (unknown) (no date) (unknown) (unknown) Environmental allergies (units unknown) (unknown) (unknown) (no date) (unknown) (unknown) Esophageal stricture (units unknown) (unknown) (unknown) (no date) (unknown) (unknown) Esophagitis (units unknown) (unknown) (unknown) (no date) (unknown) (unknown) Exam Narrative (unit s unknown) (unknown) (unknown) (no date) (unknown) (unknown) Exam Narrative: (uni ts unknown) (unknown) (unknown) (no date) (unknown) (unknown) Exam (units unknown) (unknown) (unknown) (no date) (unknown) (unknown) Family History (Updated 06/08/18 @ 12:37 by Rabia Jacob) (units unknown) (unknown) (unknown) (no date) (unknown) (unknown) Family Practic e Office Visit (units unknown) (unknown) (unknown) (no date) (unknown) (unknown) Feeling afraid as if something awful might happen: 0 = Not at all (units unknown) (unknown) (unknown) (no date) (unknown) (unknown) Feeling nervou s, anxious, or on edge: 1 = Several days (units unknown) (unknown) (unknown) (no date) (unknown) (unknown) Ferritin Today D51.0 - Vitamin B12 deficiency anemia due to intrinsic factor (units unknown) (unknown) (unknown) (no date) (unknown) (unknown) Fibromyalgia (units unknown) (unknown) (unknown) (no date) (unknown) (unknown) [facility] (units unknown) (unknown) (unknown) (no date) (unknown) (unknown) Fine) See Rx Instructions .Route .COMPLEX #200 ea 01/15/23 [Rx Confirmed (units unknown) (unknown) (unknown) (no date) (unknown) (unknown) Foot pain (2011) (un its unknown) (unknown) (unknown) (no date) (unknown) (unknown) ROSA-7 (units unknown) (unknown) (unknown) (no date) (unknown) (unknown) Gastropathy (units unknown) (unknown) (unknown) (no date) (unknown) (unknown) General: pleas ant, cooperative, +central adiposity, sitting comfortably in no (units unknown) (unknown) (unknown) (no date) (unknown) (unknown) Gets relief with OMT (units unknown) (unknown) (unknown) (no date) (unknown) (unknown) Grandmother Di abetes mellitus (units unknown) (unknown) (unknown) (no date) (unknown) (unknown) HPI (units unknown) (unknown) (unknown) (no date) (unknown) (unknown) Hayfever (units unknown) (unknown) (unknown) (no date) (unknown) (unknown) Head: b/l OM r estr, SBS compr (units unknown) (unknown) (unknown) (no date) (unknown) (unknown) Health Managem ent reviewed with patient: Yes (units unknown) (unknown) (unknown) (no date) (unknown) (unknown) Health Management (u nits unknown) (unknown) (unknown) (no date) (unknown) (unknown) Heart disease (units unknown) (unknown) (unknown) (no date) (unknown) (unknown) Height 5 ft 3.5 in ( units unknown) (unknown) (unknown) (no date) (unknown) (unknown) Hemorrhoids (units unknown) (unknown) (unknown) (no date) (unknown) (unknown) Hiatal hernia (units unknown) (unknown) (unknown) (no date) (unknown) (unknown) High cholesterol (un its unknown) (unknown) (unknown) (no date) (unknown) (unknown) History of candice betes mellitus (units unknown) (unknown) (unknown) (no date) (unknown) (unknown) History of fundoplication (units unknown) (unknown) (unknown) (no date) (unknown) (unknown) History of rep air of hiatal hernia (11/2011) (units unknown) (unknown) (unknown) (no date) (unknown) (unknown) History of tonsillectomy (1971) (units unknown) (unknown) (unknown) (no date) (unknown) (unknown) Hives (units unknown) (unknown) (unknown) (no date) (unknown) (unknown) Hypertension (units unknown) (unknown) (unknown) (no date) (unknown) (unknown) Hypothyroidism (unit s unknown) (unknown) (unknown) (no date) (unknown) (unknown) IBS (irritable bowel syndrome) (units unknown) (unknown) (unknown) (no date) (unknown) (unknown) 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 unknown) (unknown) (unknown) (no date) (unknown) (unknown) If you checked off any problems, how difficult have these problems made it for (units unknown) (unknown) (unknown) (no date) (unknown) (unknown) Informed conse nt given: Yes (units unknown) (unknown) (unknown) (no date) (unknown) (unknown) Intake Note: (units unknown) (unknown) (unknown) (no date) (unknown) (unknown) Intake perform ed by: Lani Benavides (units unknown) (unknown) (unknown) (no date) (unknown) (unknown) Intake (units unknown) (unknown) (unknown) (no date) (unknown) (unknown) Intake- Kasie al Staff (units unknown) (unknown) (unknown) (no date) (unknown) (unknown) Iron deficienc y, E87.6 - Hypokalemia (units unknown) (unknown) (unknown) (no date) (unknown) (unknown) Irritable julien l syndrome type: with both diarrhea and constipation (units unknown) (unknown) (unknown) (no date) (unknown) (unknown) Last Menstural Cycle + Details (units unknown) (unknown) (unknown) (no date) (unknown) (unknown) Leg worse compensating for foot positions (units unknown) (unknown) (unknown) (no date) (unknown) (unknown) Liver cancer (units unknown) (unknown) (unknown) (no date) (unknown) (unknown) Loc: [facility] (units unknown) (unknown) (unknown) (no date) (unknown) (unknown) Lower extremit ies: R FH ant (units unknown) (unknown) (unknown) (no date) (unknown) (unknown) Lumbar facet arthropathy (2013) (units unknown) (unknown) (unknown) (no date) (unknown) (unknown) Lumbar region somatic dysfunction (units unknown) (unknown) (unknown) (no date) (unknown) (unknown) Lumbar: L1 FRSR (uni ts unknown) (unknown) (unknown) (no date) (unknown) (unknown) Lung cancer (units unknown) (unknown) (unknown) (no date) (unknown) (unknown) Managing IBS a nd pernicious anemia with supplementation and dietary (units unknown) (unknown) (unknown) (no date) (unknown) (unknown) 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) (unknown) (unknown) (no date) (unknown) (unknown) Medical Histor y (Updated 01/26/23 @ 11:31 by Laura Parikh DO) (units unknown) (unknown) (unknown) (no date) (unknown) (unknown) Medications (units unknown) (unknown) (unknown) (no date) (unknown) (unknown) Mother d Diabetes mellitus (units unknown) (unknown) (unknown) (no date) (unknown) (unknown) Neuro: alert a nd oriented to person and situation (units unknown) (unknown) (unknown) (no date) (unknown) (unknown) Not being able to stop or control worryin = Several days (units unknown) (unknown) (unknown) (no date) (unknown) (unknown) OMM Procedure Notes: (units unknown) (unknown) (unknown) (no date) (unknown) (unknown) OMT with PH an d avoiding R distal LE, focus on autonomic nervous system today (units unknown) (unknown) (unknown) (no date) (unknown) (unknown) Obesity (units unknown) (unknown) (unknown) (no date) (unknown) (unknown) Office Meds (units unknown) (unknown) (unknown) (no date) (unknown) (unknown) Office Procedures (u nits unknown) (unknown) (unknown) (no date) (unknown) (unknown) Orders (units unknown) (unknown) (unknown) (no date) (unknown) (unknown) Orders: (units unknown) (unknown) (unknown) (no date) (unknown) (unknown) Osteoarthritis (2012) (units unknown) (unknown) (unknown) (no date) (unknown) (unknown) Osteopathic Structural Exam: (units unknown) (unknown) (unknown) (no date) (unknown) (unknown) Osteoporosis o f lumbar spine (units unknown) (unknown) (unknown) (no date) (unknown) (unknown) Osteoporosis (units unknown) (unknown) (unknown) (no date) (unknown) (unknown) Other Menstrua l Period: Postmenopausal (units unknown) (unknown) (unknown) (no date) (unknown) (unknown) Over the last 2 weeks, how often have you been bothered by any of the following (units unknown) (unknown) (unknown) (no date) (unknown) (unknown) Oxygen Deliver y Method room air room air (units unknown) (unknown) (unknown) (no date) (unknown) (unknown) PFSH (units unknown) (unknown) (unknown) (no date) (unknown) (unknown) PH, cranial, G OT, BLT, MFR (units unknown) (unknown) (unknown) (no date) (unknown) (unknown) PHQ-9 (units unknown) (unknown) (unknown) (no date) (unknown) (unknown) POC Urine Dip Today R30.0 - Dysuria (units unknown) (unknown) (unknown) (no date) (unknown) (unknown) PTSD (post-tra umatic stress disorder) (units unknown) (unknown) (unknown) (no date) (unknown) (unknown) Patient: VioletteWhitley MR#: M (units unknown) (unknown) (unknown) (no date) (unknown) (unknown) Pelvic somatic dysfunction (units unknown) (unknown) (unknown) (no date) (unknown) (unknown) Pelvis: L ant (units unknown) (unknown) (unknown) (no date) (unknown) (unknown) Performing Pro vider: Laura Weeks, DO (units unknown) (unknown) (unknown) (no date) (unknown) (unknown) Pernicious anemia (u nits unknown) (unknown) (unknown) (no date) (unknown) (unknown) Personality disorder (units unknown) (unknown) (unknown) (no date) (unknown) (unknown) Plan (units unknown) (unknown) (unknown) (no date) (unknown) (unknown) Position Sitti ng Sitting (units unknown) (unknown) (unknown) (no date) (unknown) (unknown) Psych: well ke mpt, speech and movement normal, normal affect (units unknown) (unknown) (unknown) (no date) (unknown) (unknown) Pulse 111 H 97 H (un its unknown) (unknown) (unknown) (no date) (unknown) (unknown) Pulse Oximetry (%) 98 97 (units unknown) (unknown) (unknown) (no date) (unknown) (unknown) Pulse Source M onitor Monitor (units unknown) (unknown) (unknown) (no date) (unknown) (unknown) [id number] #1 mL 08/04/22 [Rx Confirmed 01/26/23] (units unknown) (unknown) (unknown) (no date) (unknown) (unknown) Qualified Code (s): K58.2 - Mixed irritable bowel syndrome (units unknown) (unknown) (unknown) (no date) (unknown) (unknown) Qualifiers: (units unknown) (unknown) (unknown) (no date) (unknown) (unknown) Quality Reporting (u nits unknown) (unknown) (unknown) (no date) (unknown) (unknown) Questionnaires (unit s unknown) (unknown) (unknown) (no date) (unknown) (unknown) RLS (restless legs syndrome) (units unknown) (unknown) (unknown) (no date) (unknown) (unknown) Reason For Visit (un its unknown) (unknown) (unknown) (no date) (unknown) (unknown) Resp: normal e ffort, able to speak in complete sentences (units unknown) (unknown) (unknown) (no date) (unknown) (unknown) Results (units unknown) (unknown) (unknown) (no date) (unknown) (unknown) Ribcage: R2-3 post, b/l 12 exh (units unknown) (unknown) (unknown) (no date) (unknown) (unknown) Right shoulder pain (units unknown) (unknown) (unknown) (no date) (unknown) (unknown) SWELLING (units unknown) (unknown) (unknown) (no date) (unknown) (unknown) Sacral region somatic dysfunction (units unknown) (unknown) (unknown) (no date) (unknown) (unknown) Sacroiliitis (2012) (units unknown) (unknown) (unknown) (no date) (unknown) (unknown) Sacrum: b/l F, L>R SI restr (units unknown) (unknown) (unknown) (no date) (unknown) (unknown) Seborrheic keratosis (units unknown) (unknown) (unknown) (no date) (unknown) (unknown) Seeing podiatr y, getting splint re foot fracture. Still not weighted, will re (units unknown) (unknown) (unknown) (no date) (unknown) (unknown) Shoulders and neck worse having to use wheel chair (units unknown) (unknown) (unknown) (no date) (unknown) (unknown) Signed By: <Electronically signed by Laura Parikh D.O.> (units unknown) (unknown) (unknown) (no date) (unknown) (unknown) Signed with Addenda (units unknown) (unknown) (unknown) (no date) (unknown) (unknown) Sister d Diabetes mellitus (units unknown) (unknown) (unknown) (no date) (unknown) (unknown) Smoking Status : Former smoker (units unknown) (unknown) (unknown) (no date) (unknown) (unknown) Source: Develo ped by Drs. Michael Kelsey, Anni Gunderson, Jay Spencer (units unknown) (unknown) (unknown) (no date) (unknown) (unknown) Status post colonoscopy (09/2019) (units unknown) (unknown) (unknown) (no date) (unknown) (unknown) Status post endoscopy (12/2019) (units unknown) (unknown) (unknown) (no date) (unknown) (unknown) Status post reduction mammoplasty (07/2010) (units unknown) (unknown) (unknown) (no date) (unknown) (unknown) Status: Acute (units unknown) (unknown) (unknown) (no date) (unknown) (unknown) Status: Chronic (uni ts unknown) (unknown) (unknown) (no date) (unknown) (unknown) Stroke (units unknown) (unknown) (unknown) (no date) (unknown) (unknown) Substance abuse (uni ts unknown) (unknown) (unknown) (no date) (unknown) (unknown) Surgical Histo ry (Updated 01/18/20 @ 15:38 by Summer Price DO) (units unknown) (unknown) (unknown) (no date) (unknown) (unknown) Temp 96.8 F L (units unknown) (unknown) (unknown) (no date) (unknown) (unknown) Temp Source Te mporal Artery Scan (units unknown) (unknown) (unknown) (no date) (unknown) (unknown) This note may have been all or partially generated using voice recognition (units unknown) (unknown) (unknown) (no date) (unknown) (unknown) Thoracic regio n somatic dysfunction (units unknown) (unknown) (unknown) (no date) (unknown) (unknown) 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, T7 FRSR (units unknown) (unknown) (unknown) (no date) (unknown) (unknown) Time Coding Mi nutes Spent: (must be on same date of service/appointment) (units unknown) (unknown) (unknown) (no date) (unknown) (unknown) Time Spent (units unknown) (unknown) (unknown) (no date) (unknown) (unknown) Tinnitus (units unknown) (unknown) (unknown) (no date) (unknown) (unknown) Tobacco + Subs tance Use (units unknown) (unknown) (unknown) (no date) (unknown) (unknown) Tobacco Status (unit s unknown) (unknown) (unknown) (no date) (unknown) (unknown) Total ROSA-7 sc ore (0-4 normal; 5-9 mild; 10-14 moderate; 15-21 severe): 4 (units unknown) (unknown) (unknown) (no date) (unknown) (unknown) Total score: 11 (uni ts unknown) (unknown) (unknown) (no date) (unknown) (unknown) Total visit ti me apart from OMT 31 minutes today, including 20 minutes face to (units unknown) (unknown) (unknown) (no date) (unknown) (unknown) Trouble relaxi n = Not at all (units unknown) (unknown) (unknown) (no date) (unknown) (unknown) Tubular adenom a of colon (12/2014) (units unknown) (unknown) (unknown) (no date) (unknown) (unknown) Upper extremit ies: b/l scapulothoracic restr and levator scap htn (units unknown) (unknown) (unknown) (no date) (unknown) (unknown) Urine Appearan ce Clear Last Edit by Lani Benavides, CONTINUOUS MINING MACHINE OPERATOR on 01/26/23 11:15 (units unknown) (unknown) (unknown) (no date) (unknown) (unknown) Urine Bilirubi n Negative Last Edit by Lani Benavides, CONTINUOUS MINING MACHINE OPERATOR on 01/26/23 11:15 (units unknown) (unknown) (unknown) (no date) (unknown) (unknown) Urine Blood +- 10 Ashish/uL Last Edit by Lani Benavides, CONTINUOUS MINING MACHINE OPERATOR on 01/26/23 11:15 (units unknown) (unknown) (unknown) (no date) (unknown) (unknown) Urine Color Ye llow Last Edit by Lani Benavides, CONTINUOUS MINING MACHINE OPERATOR on 01/26/23 11:15 (units unknown) (unknown) (unknown) (no date) (unknown) (unknown) Urine Dipstick (unit s unknown) (unknown) (unknown) (no date) (unknown) (unknown) Urine Glucose Negative mg/dL Last Edit by Lani Benavides, CONTINUOUS MINING MACHINE OPERATOR on 01/26/23 11 (units unknown) (unknown) (unknown) (no date) (unknown) (unknown) Urine Ketones Negative Last Edit by Lani Benavides, CONTINUOUS MINING MACHINE OPERATOR on 01/26/23 11:15 (units unknown) (unknown) (unknown) (no date) (unknown) (unknown) Urine Leukocyt e Esterase Negative Last Edit by Lani Benavides, CONTINUOUS MINING MACHINE OPERATOR on 01/26 (units unknown) (unknown) (unknown) (no date) (unknown) (unknown) Urine Nitrate Negative Last Edit by Lani Benavides, CONTINUOUS MINING MACHINE OPERATOR on 01/26/23 11:15 (units unknown) (unknown) (unknown) (no date) (unknown) (unknown) Urine Protein Negative Last Edit by Lani Benavides, CONTINUOUS MINING MACHINE OPERATOR on 01/26/23 11:15 (units unknown) (unknown) (unknown) (no date) (unknown) (unknown) Urine Specific [place] 1.010 Last Edit by Lani Benavides CMA on 01/26/23 (units unknown) (unknown) (unknown) (no date) (unknown) (unknown) Urine Urobilin ogen - 0.2 mg/dL Last Edit by Lani Benavides CMA on units unknown) (unknown) (unknown) (no date) (unknown) (unknown) Urine pH 7.0 L ast Edit by Lani Benavides CMA on 01/26/23 11:15 (units unknown) (unknown) (unknown) (no date) (unknown) (unknown) Visit Reasons: OMT #2 (units unknown) (unknown) (unknown) (no date) (unknown) (unknown) Vitals (units unknown) (unknown) (unknown) (no date) (unknown) (unknown) Vitamin D 25 H ydroxy (D3) Today D51.0 - Vitamin B12 deficiency anemia due to (units unknown) (unknown) (unknown) (no date) (unknown) (unknown) Albert's (units unknown) (unknown) (unknown) (no date) (unknown) (unknown) Worrying too m uch about different things: 1 = Several days (units unknown) (unknown) (unknown) (no date) (unknown) (unknown) [Rx Confirmed 01/26/23] (units unknown) (unknown) (unknown) (no date) (unknown) (unknown) acetaminophen 300 mg-codeine 30 mg tablet 1 tab PO Q6H PRN pain #5 tabs 11/17/22 (units unknown) (unknown) (unknown) (no date) (unknown) (unknown) acute distress , has crutch for ambulation (units unknown) (unknown) (unknown) (no date) (unknown) (unknown) albuterol [ALBUTEROL] Allergy (Unknown, Verified 01/26/23 11:45) (units unknown) (unknown) (unknown) (no date) (unknown) (unknown) and colleagues , with an educational tej from [employer] (units unknown) (unknown) (unknown) (no date) (unknown) (unknown) and your famil y down: several days (units unknown) (unknown) (unknown) (no date) (unknown) (unknown) bladder pain (units unknown) (unknown) (unknown) (no date) (unknown) (unknown) cholecalcifero l (vitamin D3) 250 mcg (10,000 unit) tablet 10,000 tab PO QDAY ##0 (units unknown) (unknown) (unknown) (no date) (unknown) (unknown) clonazepam 1 m g tablet 0.5 mg PO BID PRN anxiety #10 tabs 01/26/23 [Rx] (units unknown) (unknown) (unknown) (no date) (unknown) (unknown) congestion and stomach problems (units unknown) (unknown) (unknown) (no date) (unknown) (unknown) coordinating care. ( units unknown) (unknown) (unknown) (no date) (unknown) (unknown) cyanocobalamin (vitamin B-12) 1,000 mcg/mL injection solution 1,000 mcg IM (units unknown) (unknown) (unknown) (no date) (unknown) (unknown) cyanocobalamin (vitamin B-12) (units unknown) (unknown) (unknown) (no date) (unknown) (unknown) deficiency, E5 5.9 - Vitamin D deficiency, unspecified, E61.1 - Iron deficiency, (units unknown) (unknown) (unknown) (no date) (unknown) (unknown) dexamethasone Adverse Reaction (Severe, Verified 01/26/23 11:45) (units unknown) (unknown) (unknown) (no date) (unknown) (unknown) did comprehens cassy stool analysis through [employer] too (units unknown) (unknown) (unknown) (no date) (unknown) (unknown) did have SIBO breath through [facility] but unable to get results because was Dr (units unknown) (unknown) (unknown) (no date) (unknown) (unknown) eval after nex t ortho f/u. (units unknown) (unknown) (unknown) (no date) (unknown) (unknown) extraarticular R calcaneal fracture on XR and CT, plan on limit weight bearing, (units unknown) (unknown) (unknown) (no date) (unknown) (unknown) face on histor y, exam, and counseling, and 11 minutes reviewing, charting, and (units unknown) (unknown) (unknown) (no date) (unknown) (unknown) folic acid 5 m g PO 04/08/22 [History Confirmed 01/26/23] (units unknown) (unknown) (unknown) (no date) (unknown) (unknown) folic acid (units unknown) (unknown) (unknown) (no date) (unknown) (unknown) gastritis flares (un its unknown) (unknown) (unknown) (no date) (unknown) (unknown) gentle iron PO 12/09/21 [History Confirmed 01/26/23] (units unknown) (unknown) (unknown) (no date) (unknown) (unknown) gluten [GLUTEN ] Allergy (Unknown, Verified 01/26/23 11:45) (units unknown) (unknown) (unknown) (no date) (unknown) (unknown) gluten free vegan (u nits unknown) (unknown) (unknown) (no date) (unknown) (unknown) grass pollen A llergy (Severe, Verified 01/26/23 11:45) (units unknown) (unknown) (unknown) (no date) (unknown) (unknown) have occurred. If there are any questions, please contact the Medical Records (units unknown) (unknown) (unknown) (no date) (unknown) (unknown) hydromorphone [HYDROMORPHONE] Allergy (Mild, Verified 01/26/23 11:45) (units unknown) (unknown) (unknown) (no date) (unknown) (unknown) hydroxocobalam in 1,000 mcg/mL intramuscular solution 500 mcg (0.5 mL) IM BID #30 (units unknown) (unknown) (unknown) (no date) (unknown) (unknown) insulin syringe-needle U-100 1 mL 30 gauge x 1/2' (BD Insulin Syringe Ultra (units unknown) (unknown) (unknown) (no date) (unknown) (unknown) intrinsic fact or deficiency (units unknown) (unknown) (unknown) (no date) (unknown) (unknown) intrinsic fact or deficiency, E53.9 - Vitamin B deficiency, unspecified (units unknown) (unknown) (unknown) (no date) (unknown) (unknown) intrinsic fact or deficiency, E55.9 - Vitamin D deficiency, unspecified, E61.1 (units unknown) (unknown) (unknown) (no date) (unknown) (unknown) iodine and osmany enium for thyroid, rather than taking thyroid (units unknown) (unknown) (unknown) (no date) (unknown) (unknown) k2 with vit D PO 12/09/21 [History Confirmed 01/26/23] (units unknown) (unknown) (unknown) (no date) (unknown) (unknown) lithium [LITHI UM] Allergy (Unknown, Verified 01/26/23 11:45) (units unknown) (unknown) (unknown) (no date) (unknown) (unknown) loratadine 10 mg tablet (Claritin) 10 mg PO DAILY PRN allergic symptoms #90 tabs (units unknown) (unknown) (unknown) (no date) (unknown) (unknown) mL 11/27/22 [R x Confirmed 01/26/23] (units unknown) (unknown) (unknown) (no date) (unknown) (unknown) magnesium (units unknown) (unknown) (unknown) (no date) (unknown) (unknown) may occur. Occasional wrong-word or 'sound-alike' substitutions may have (units unknown) (unknown) (unknown) (no date) (unknown) (unknown) modifications. Labs today and B12 injection. (units unknown) (unknown) (unknown) (no date) (unknown) (unknown) more than usua l: not at all (units unknown) (unknown) (unknown) (no date) (unknown) (unknown) occurred due t o the inherent limitations of voice recognition software. Please (units unknown) (unknown) (unknown) (no date) (unknown) (unknown) ondansetron HC l 4 mg tablet (Zofran) 4 mg PO Q4HP PRN #20 tabs 11/25/17 [Rx (units unknown) (unknown) (unknown) (no date) (unknown) (unknown) opposite - joann ng so fidgety or restless that you have been moving around a lot (units unknown) (unknown) (unknown) (no date) (unknown) (unknown) people?: somew hat difficult (units unknown) (unknown) (unknown) (no date) (unknown) (unknown) per OSE. (units unknown) (unknown) (unknown) (no date) (unknown) (unknown) polyneuropathies (un its unknown) (unknown) (unknown) (no date) (unknown) (unknown) problems? (units unknown) (unknown) (unknown) (no date) (unknown) (unknown) read the note carefully and recognize, using context, where these substitutions (units unknown) (unknown) (unknown) (no date) (unknown) (unknown) recent UTI, TO C today negative (units unknown) (unknown) (unknown) (no date) (unknown) (unknown) mily palmer and brianna, recheck XR 1m. (units unknown) (unknown) (unknown) (no date) (unknown) (unknown) software. Alth ough every effort is made to edit content, hand cell tuber errors (units unknown) (unknown) (unknown) (no date) (unknown) (unknown) tachycardia (units unknown) (unknown) (unknown) (no date) (unknown) (unknown) takes: (units unknown) (unknown) (unknown) (no date) (unknown) (unknown) television: ne dieudonne every day (units unknown) (unknown) (unknown) (no date) (unknown) (unknown) tizanidine 4 m g tablet 4 mg PO Q8H PRN muscle spasticity #20 tabs 01/05/23 [Rx (units unknown) (unknown) (unknown) (no date) (unknown) (unknown) vitamin C / ir on 125mg plant based (units unknown) (unknown) (unknown) (no date) (unknown) (unknown) vitamin D / K2 68844/100 (units unknown) (unknown) (unknown) (no date) (unknown) (unknown) vitamin c 1000 mg PO 12/09/21 [History Confirmed 01/26/23] (units unknown) (unknown) (unknown) (no date) (unknown) (unknown) wants ongoing B12 and needles, hoping to get a formulation without additive (units unknown) (unknown) (unknown) (no date) (unknown) (unknown) way: not at all (uni ts unknown) (unknown) (unknown) (no date) (unknown) (unknown) you to do your work, take care of things at home, or get along with other (units unknown) (unknown) Result panel 42 (unknown) (no date) (unknown) (unknown) (no value) (units unknown) (unknown) (unknown) (no date) (unknown) (unknown) [id number] (units unknown) (unknown) (unknown) (no date) (unknown) (unknown) 02/09/23 (units unknown) (unknown) (unknown) (no date) (unknown) (unknown) 10:51 (units unknown) (unknown) (unknown) (no date) (unknown) (unknown) 67 yo female presents today for OMT (units unknown) (unknown) (unknown) (no date) (unknown) (unknown) Accompanied by : Self / Same As Patient (units unknown) (unknown) (unknown) (no date) (unknown) (unknown) Acute pain of left shoulder (units unknown) (unknown) (unknown) (no date) (unknown) (unknown) Age/Sex: 67 / F Date of Service: (units unknown) (unknown) (unknown) (no date) (unknown) (unknown) Allergic react ion to grass pollen (units unknown) (unknown) (unknown) (no date) (unknown) (unknown) Allergic to cats (un its unknown) (unknown) (unknown) (no date) (unknown) (unknown) Allergies (units unknown) (unknown) (unknown) (no date) (unknown) (unknown) [place] [id number] (units unknown) (unknown) (unknown) (no date) (unknown) (unknown) Anesthesia (units unknown) (unknown) (unknown) (no date) (unknown) (unknown) Angina pectoris (uni ts unknown) (unknown) (unknown) (no date) (unknown) (unknown) Ankle pain, ch ronic (2014) (units unknown) (unknown) (unknown) (no date) (unknown) (unknown) Ankle pain, chronic (units unknown) (unknown) (unknown) (no date) (unknown) (unknown) Anxiety (units unknown) (unknown) (unknown) (no date) (unknown) (unknown) Attending Dr: Laura LittleOElliott (units unknown) (unknown) (unknown) (no date) (unknown) (unknown) BP 134/80 (units unknown) (unknown) (unknown) (no date) (unknown) (unknown) Bipolar disorder (un its unknown) (unknown) (unknown) (no date) (unknown) (unknown) Blood Pressure Location Lt brachial (units unknown) (unknown) (unknown) (no date) (unknown) (unknown) Brain cancer (units unknown) (unknown) (unknown) (no date) (unknown) (unknown) Cervical somat ic dysfunction (units unknown) (unknown) (unknown) (no date) (unknown) (unknown) Chicken pox (units unknown) (unknown) (unknown) (no date) (unknown) (unknown) Child Age: 34 Hx of appendectomy (units unknown) (unknown) (unknown) (no date) (unknown) (unknown) Child Age: 37 Penicillin allergy (units unknown) (unknown) (unknown) (no date) (unknown) (unknown) Child Age: 46 Hay fever (units unknown) (unknown) (unknown) (no date) (unknown) (unknown) 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 (units unknown) (unknown) (unknown) (no date) (unknown) (unknown) Chronic left-s ided thoracic back pain (units unknown) (unknown) (unknown) (no date) (unknown) (unknown) Compound heterozygous MTHFR mutation 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 () (units unknown) (unknown) (unknown) (no date) (unknown) (unknown) Compression fr acture of body of thoracic vertebra () (units unknown) (unknown) (unknown) (no date) (unknown) (unknown) Cranial somati c dysfunction (units unknown) (unknown) (unknown) (no date) (unknown) (unknown) DAIRY Allergy (Intermediate, Uncoded 01/26/23 11:45) (units unknown) (unknown) (unknown) (no date) (unknown) (unknown) : 4 Acct:[id number] (units unknown) (unknown) (unknown) (no date) (unknown) (unknown) Depression (09/21/14) (units unknown) (unknown) (unknown) (no date) (unknown) (unknown) Depression (units unknown) (unknown) (unknown) (no date) (unknown) (unknown) Dept at . (units unknown) (unknown) (unknown) (no date) (unknown) (unknown) Documented By: Laura Parikh D.O. 02/09/23 1050 (units unknown) (unknown) (unknown) (no date) (unknown) (unknown) Draft (units unknown) (unknown) (unknown) (no date) (unknown) (unknown) Environmental allergies (units unknown) (unknown) (unknown) (no date) (unknown) (unknown) Esophageal stricture (units unknown) (unknown) (unknown) (no date) (unknown) (unknown) Esophagitis (units unknown) (unknown) (unknown) (no date) (unknown) (unknown) Family History (Updated 06/08/18 @ 12:37 by Rabia Jacob) (units unknown) (unknown) (unknown) (no date) (unknown) (unknown) Family Practic e Office Visit (units unknown) (unknown) (unknown) (no date) (unknown) (unknown) Fibromyalgia (units unknown) (unknown) (unknown) (no date) (unknown) (unknown) [facility] (units unknown) (unknown) (unknown) (no date) (unknown) (unknown) Foot pain (2011) (un its unknown) (unknown) (unknown) (no date) (unknown) (unknown) Gastropathy (units unknown) (unknown) (unknown) (no date) (unknown) (unknown) Grandmother Di abetes mellitus (units unknown) (unknown) (unknown) (no date) (unknown) (unknown) Hayfever (units unknown) (unknown) (unknown) (no date) (unknown) (unknown) Heart disease (units unknown) (unknown) (unknown) (no date) (unknown) (unknown) Height 5 ft 3.5 in ( units unknown) (unknown) (unknown) (no date) (unknown) (unknown) Hemorrhoids (units unknown) (unknown) (unknown) (no date) (unknown) (unknown) Hiatal hernia (units unknown) (unknown) (unknown) (no date) (unknown) (unknown) High cholesterol (un its unknown) (unknown) (unknown) (no date) (unknown) (unknown) History of candice betes mellitus (units unknown) (unknown) (unknown) (no date) (unknown) (unknown) History of fundoplication (units unknown) (unknown) (unknown) (no date) (unknown) (unknown) History of rep air of hiatal hernia (11/2011) (units unknown) (unknown) (unknown) (no date) (unknown) (unknown) History of tonsillectomy (1972) (units unknown) (unknown) (unknown) (no date) (unknown) (unknown) Hives (units unknown) (unknown) (unknown) (no date) (unknown) (unknown) Hypertension (units unknown) (unknown) (unknown) (no date) (unknown) (unknown) Hypothyroidism (unit s unknown) (unknown) (unknown) (no date) (unknown) (unknown) IBS (irritable bowel syndrome) (units unknown) (unknown) (unknown) (no date) (unknown) (unknown) 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 unknown) (unknown) (unknown) (no date) (unknown) (unknown) Intake Note: (units unknown) (unknown) (unknown) (no date) (unknown) (unknown) Intake perform ed by: Lani Benavides (units unknown) (unknown) (unknown) (no date) (unknown) (unknown) Intake (units unknown) (unknown) (unknown) (no date) (unknown) (unknown) Intake- [facility] Staff (units unknown) (unknown) (unknown) (no date) (unknown) (unknown) Last Menstural Cycle + Details (units unknown) (unknown) (unknown) (no date) (unknown) (unknown) Liver cancer (units unknown) (unknown) (unknown) (no date) (unknown) (unknown) Loc: [facility] (units unknown) (unknown) (unknown) (no date) (unknown) (unknown) Lumbar facet arthropathy (2013) (units unknown) (unknown) (unknown) (no date) (unknown) (unknown) Lumbar region somatic dysfunction (units unknown) (unknown) (unknown) (no date) (unknown) (unknown) Lung cancer (units unknown) (unknown) (unknown) (no date) (unknown) (unknown) Medical Histor y (Updated 01/26/23 @ 11:31 by Laura Parikh DO) (units unknown) (unknown) (unknown) (no date) (unknown) (unknown) Mother d Diabetes mellitus (units unknown) (unknown) (unknown) (no date) (unknown) (unknown) Obesity (units unknown) (unknown) (unknown) (no date) (unknown) (unknown) Osteoarthritis (2011) (units unknown) (unknown) (unknown) (no date) (unknown) (unknown) Osteoporosis o f lumbar spine (units unknown) (unknown) (unknown) (no date) (unknown) (unknown) Osteoporosis (units unknown) (unknown) (unknown) (no date) (unknown) (unknown) Other Menstrua l Period: Postmenopausal (units unknown) (unknown) (unknown) (no date) (unknown) (unknown) Oxygen Deliver y Method room air (units unknown) (unknown) (unknown) (no date) (unknown) (unknown) PFSH (units unknown) (unknown) (unknown) (no date) (unknown) (unknown) PTSD (post-tra umatic stress disorder) (units unknown) (unknown) (unknown) (no date) (unknown) (unknown) Patient: Whitley Oakes MR#: M (units unknown) (unknown) (unknown) (no date) (unknown) (unknown) Pelvic somatic dysfunction (units unknown) (unknown) (unknown) (no date) (unknown) (unknown) Pernicious anemia (u nits unknown) (unknown) (unknown) (no date) (unknown) (unknown) Personality disorder (units unknown) (unknown) (unknown) (no date) (unknown) (unknown) Position Sitting (un its unknown) (unknown) (unknown) (no date) (unknown) (unknown) Pulse 101 H (units unknown) (unknown) (unknown) (no date) (unknown) (unknown) Pulse Oximetry (%) 98 (units unknown) (unknown) (unknown) (no date) (unknown) (unknown) Pulse Source Monitor (units unknown) (unknown) (unknown) (no date) (unknown) (unknown) RLS (restless legs syndrome) (units unknown) (unknown) (unknown) (no date) (unknown) (unknown) Reason For Visit (un its unknown) (unknown) (unknown) (no date) (unknown) (unknown) Right shoulder pain (units unknown) (unknown) (unknown) (no date) (unknown) (unknown) SWELLING (units unknown) (unknown) (unknown) (no date) (unknown) (unknown) Sacral region somatic dysfunction (units unknown) (unknown) (unknown) (no date) (unknown) (unknown) Sacroiliitis (2012) (units unknown) (unknown) (unknown) (no date) (unknown) (unknown) Seborrheic keratosis (units unknown) (unknown) (unknown) (no date) (unknown) (unknown) Signed By: (units unknown) (unknown) (unknown) (no date) (unknown) (unknown) Sister d Diabetes mellitus (units unknown) (unknown) (unknown) (no date) (unknown) (unknown) Smoking Status : Former smoker (units unknown) (unknown) (unknown) (no date) (unknown) (unknown) Status post colonoscopy (09/2019) (units unknown) (unknown) (unknown) (no date) (unknown) (unknown) Status post endoscopy (12/2019) (units unknown) (unknown) (unknown) (no date) (unknown) (unknown) Status post reduction mammoplasty (07/2010) (units unknown) (unknown) (unknown) (no date) (unknown) (unknown) Stroke (units unknown) (unknown) (unknown) (no date) (unknown) (unknown) Substance abuse (uni ts unknown) (unknown) (unknown) (no date) (unknown) (unknown) Surgical Histo ry (Updated 01/18/20 @ 15:38 by Summer Price DO) (units unknown) (unknown) (unknown) (no date) (unknown) (unknown) Temp 96.9 F L (units unknown) (unknown) (unknown) (no date) (unknown) (unknown) Temp Source Te mporal Artery Scan (units unknown) (unknown) (unknown) (no date) (unknown) (unknown) This note may have been all or partially generated using voice recognition (units unknown) (unknown) (unknown) (no date) (unknown) (unknown) Thoracic regio n somatic dysfunction (units unknown) (unknown) (unknown) (no date) (unknown) (unknown) Tinnitus (units unknown) (unknown) (unknown) (no date) (unknown) (unknown) Tobacco + Subs tance Use (units unknown) (unknown) (unknown) (no date) (unknown) (unknown) Tobacco Status (unit s unknown) (unknown) (unknown) (no date) (unknown) (unknown) Tubular adenom a of colon (12/2014) (units unknown) (unknown) (unknown) (no date) (unknown) (unknown) Visit Reasons: OMT 04 (units unknown) (unknown) (unknown) (no date) (unknown) (unknown) Vitals (units unknown) (unknown) (unknown) (no date) (unknown) (unknown) albuterol [ALBUTEROL] Allergy (Unknown, Verified 01/26/23 11:45) (units unknown) (unknown) (unknown) (no date) (unknown) (unknown) bladder pain (units unknown) (unknown) (unknown) (no date) (unknown) (unknown) congestion and stomach problems (units unknown) (unknown) (unknown) (no date) (unknown) (unknown) dexamethasone Adverse Reaction (Severe, Verified 01/26/23 11:45) (units unknown) (unknown) (unknown) (no date) (unknown) (unknown) gluten [GLUTEN ] Allergy (Unknown, Verified 01/26/23 11:45) (units unknown) (unknown) (unknown) (no date) (unknown) (unknown) grass pollen A llergy (Severe, Verified 01/26/23 11:45) (units unknown) (unknown) (unknown) (no date) (unknown) (unknown) have occurred. If there are any questions, please contact the Medical Records (units unknown) (unknown) (unknown) (no date) (unknown) (unknown) hydromorphone [HYDROMORPHONE] Allergy (Mild, Verified 01/26/23 11:45) (units unknown) (unknown) (unknown) (no date) (unknown) (unknown) lithium [LITHI UM] Allergy (Unknown, Verified 01/26/23 11:45) (units unknown) (unknown) (unknown) (no date) (unknown) (unknown) may occur. Occasional wrong-word or 'sound-alike' substitutions may have (units unknown) (unknown) (unknown) (no date) (unknown) (unknown) occurred due t o the inherent limitations of voice recognition software. Please (units unknown) (unknown) (unknown) (no date) (unknown) (unknown) read the note carefully and recognize, using context, where these substitutions (units unknown) (unknown) (unknown) (no date) (unknown) (unknown) software. Alth ough every effort is made to edit content, hand cell tuber errors (units unknown) (unknown) (unknown) (no date) (unknown) (unknown) tachycardia (units unknown) (unknown) Result panel 43 (unknown) (no date) (unknown) (unknown) (no value) (units unknown) (unknown) (unknown) (no date) (unknown) (unknown) [id number] (units unknown) (unknown) (unknown) (no date) (unknown) (unknown) 02/09/23 (units unknown) (unknown) (unknown) (no date) (unknown) (unknown) 10:51 (units unknown) (unknown) (unknown) (no date) (unknown) (unknown) 01/01/23 fall f rom step stool, saw ortho ([place]), mildly displaced (units unknown) (unknown) (unknown) (no date) (unknown) (unknown) 67 yo female presents today for OMT (units unknown) (unknown) (unknown) (no date) (unknown) (unknown) 7th day Conf[employer] (u nits unknown) (unknown) (unknown) (no date) (unknown) (unknown) Accompanied by : Self / Same As Patient (units unknown) (unknown) (unknown) (no date) (unknown) (unknown) Acute pain of left shoulder (units unknown) (unknown) (unknown) (no date) (unknown) (unknown) Age/Sex: 67 / F Date of Service: (units unknown) (unknown) (unknown) (no date) (unknown) (unknown) Allergic react ion to grass pollen (units unknown) (unknown) (unknown) (no date) (unknown) (unknown) Allergic to cats (un its unknown) (unknown) (unknown) (no date) (unknown) (unknown) Allergies (units unknown) (unknown) (unknown) (no date) (unknown) (unknown) [place] [address] (units unknown) (unknown) (unknown) (no date) (unknown) (unknown) Anesthesia (units unknown) (unknown) (unknown) (no date) (unknown) (unknown) Angina pectoris (uni ts unknown) (unknown) (unknown) (no date) (unknown) (unknown) Ankle pain, ch ronic (2014) (units unknown) (unknown) (unknown) (no date) (unknown) (unknown) Ankle pain, chronic (units unknown) (unknown) (unknown) (no date) (unknown) (unknown) Anxiety (units unknown) (unknown) (unknown) (no date) (unknown) (unknown) Attending Dr: Laura Parikh DElliottO. (units unknown) (unknown) (unknown) (no date) (unknown) (unknown) B12 (IM after failing high dose sublingual) for occipital neuralgia, as well as (units unknown) (unknown) (unknown) (no date) (unknown) (unknown) BP 134/80 (units unknown) (unknown) (unknown) (no date) (unknown) (unknown) Bipolar disorder (un its unknown) (unknown) (unknown) (no date) (unknown) (unknown) Blood Pressure Location Lt brachial (units unknown) (unknown) (unknown) (no date) (unknown) (unknown) Brain cancer (units unknown) (unknown) (unknown) (no date) (unknown) (unknown) Broke R foot, very painful, still not weight bearing. Seeing ortho and podiatry. (units unknown) (unknown) (unknown) (no date) (unknown) (unknown) Cervical somat ic dysfunction (units unknown) (unknown) (unknown) (no date) (unknown) (unknown) Chicken pox (units unknown) (unknown) (unknown) (no date) (unknown) (unknown) Chief Complaint (uni ts unknown) (unknown) (unknown) (no date) (unknown) (unknown) Chief Complain t: multiple pain complaints (units unknown) (unknown) (unknown) (no date) (unknown) (unknown) Child Age: 34 Hx of appendectomy (units unknown) (unknown) (unknown) (no date) (unknown) (unknown) Child Age: 37 Penicillin allergy (units unknown) (unknown) (unknown) (no date) (unknown) (unknown) Child Age: 46 Hay fever (units unknown) (unknown) (unknown) (no date) (unknown) (unknown) 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 (units unknown) (unknown) (unknown) (no date) (unknown) (unknown) Chronic left-s ided thoracic back pain (units unknown) (unknown) (unknown) (no date) (unknown) (unknown) Compound heterozygous MTHFR mutation [id number] () (units unknown) (unknown) (unknown) (no date) (unknown) (unknown) Compression fr acture of body of thoracic vertebra () (units unknown) (unknown) (unknown) (no date) (unknown) (unknown) Cranial somati c dysfunction (units unknown) (unknown) (unknown) (no date) (unknown) (unknown) DAIRY Allergy (Intermediate, Uncoded 01/26/23 11:45) (units unknown) (unknown) (unknown) (no date) (unknown) (unknown) : 4 Acct:[id number] (units unknown) (unknown) (unknown) (no date) (unknown) (unknown) Depression (09/21/14) (units unknown) (unknown) (unknown) (no date) (unknown) (unknown) Depression (units unknown) (unknown) (unknown) (no date) (unknown) (unknown) Dept at . (units unknown) (unknown) (unknown) (no date) (unknown) (unknown) Details: (units unknown) (unknown) (unknown) (no date) (unknown) (unknown) Documented By: Laura Parikh D.O. 02/09/23 1050 (units unknown) (unknown) (unknown) (no date) (unknown) (unknown) Draft (units unknown) (unknown) (unknown) (no date) (unknown) (unknown) Environmental allergies (units unknown) (unknown) (unknown) (no date) (unknown) (unknown) Esophageal stricture (units unknown) (unknown) (unknown) (no date) (unknown) (unknown) Esophagitis (units unknown) (unknown) (unknown) (no date) (unknown) (unknown) Family History (Updated 06/08/18 @ 12:37 by Rabia Jacob) (units unknown) (unknown) (unknown) (no date) (unknown) (unknown) Family Practic e Office Visit (units unknown) (unknown) (unknown) (no date) (unknown) (unknown) Fibromyalgia (units unknown) (unknown) (unknown) (no date) (unknown) (unknown) [facility] (units unknown) (unknown) (unknown) (no date) (unknown) (unknown) Foot pain (2011) (un its unknown) (unknown) (unknown) (no date) (unknown) (unknown) Gastropathy (units unknown) (unknown) (unknown) (no date) (unknown) (unknown) Gets relief with OMT (units unknown) (unknown) (unknown) (no date) (unknown) (unknown) Grandmother Di abetes mellitus (units unknown) (unknown) (unknown) (no date) (unknown) (unknown) HPI (units unknown) (unknown) (unknown) (no date) (unknown) (unknown) Hayfever (units unknown) (unknown) (unknown) (no date) (unknown) (unknown) Heart disease (units unknown) (unknown) (unknown) (no date) (unknown) (unknown) Height 5 ft 3.5 in ( units unknown) (unknown) (unknown) (no date) (unknown) (unknown) Hemorrhoids (units unknown) (unknown) (unknown) (no date) (unknown) (unknown) Hiatal hernia (units unknown) (unknown) (unknown) (no date) (unknown) (unknown) High cholesterol (un its unknown) (unknown) (unknown) (no date) (unknown) (unknown) History of candice betes mellitus (units unknown) (unknown) (unknown) (no date) (unknown) (unknown) History of fundoplication (units unknown) (unknown) (unknown) (no date) (unknown) (unknown) History of rep air of hiatal hernia (11/2011) (units unknown) (unknown) (unknown) (no date) (unknown) (unknown) History of tonsillectomy (1971) (units unknown) (unknown) (unknown) (no date) (unknown) (unknown) Hives (units unknown) (unknown) (unknown) (no date) (unknown) (unknown) Hypertension (units unknown) (unknown) (unknown) (no date) (unknown) (unknown) Hypothyroidism (unit s unknown) (unknown) (unknown) (no date) (unknown) (unknown) IBS (irritable bowel syndrome) (units unknown) (unknown) (unknown) (no date) (unknown) (unknown) 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 unknown) (unknown) (unknown) (no date) (unknown) (unknown) Intake Note: (units unknown) (unknown) (unknown) (no date) (unknown) (unknown) Intake perform ed by: Lani Benavides (units unknown) (unknown) (unknown) (no date) (unknown) (unknown) Intake (units unknown) (unknown) (unknown) (no date) (unknown) (unknown) Intake- [place] [facility] (units unknown) (unknown) (unknown) (no date) (unknown) (unknown) Last Menstural Cycle + Details (units unknown) (unknown) (unknown) (no date) (unknown) (unknown) Leg worse compensating for foot positions (units unknown) (unknown) (unknown) (no date) (unknown) (unknown) Liver cancer (units unknown) (unknown) (unknown) (no date) (unknown) (unknown) Loc: [facility] (units unknown) (unknown) (unknown) (no date) (unknown) (unknown) Lumbar facet arthropathy (2013) (units unknown) (unknown) (unknown) (no date) (unknown) (unknown) Lumbar region somatic dysfunction (units unknown) (unknown) (unknown) (no date) (unknown) (unknown) Lung cancer (units unknown) (unknown) (unknown) (no date) (unknown) (unknown) Medical Histor y (Updated 01/26/23 @ 11:31 by Laura Parikh DO) (units unknown) (unknown) (unknown) (no date) (unknown) (unknown) Mother d Diabetes mellitus (units unknown) (unknown) (unknown) (no date) (unknown) (unknown) Obesity (units unknown) (unknown) (unknown) (no date) (unknown) (unknown) Osteoarthritis (2011) (units unknown) (unknown) (unknown) (no date) (unknown) (unknown) Osteoporosis o f lumbar spine (units unknown) (unknown) (unknown) (no date) (unknown) (unknown) Osteoporosis (units unknown) (unknown) (unknown) (no date) (unknown) (unknown) Other Menstrua l Period: Postmenopausal (units unknown) (unknown) (unknown) (no date) (unknown) (unknown) Oxygen Deliver y Method room air (units unknown) (unknown) (unknown) (no date) (unknown) (unknown) PFSH (units unknown) (unknown) (unknown) (no date) (unknown) (unknown) PTSD (post-tra umatic stress disorder) (units unknown) (unknown) (unknown) (no date) (unknown) (unknown) Patient: Whitley Oakes MR#: M (units unknown) (unknown) (unknown) (no date) (unknown) (unknown) Pelvic somatic dysfunction (units unknown) (unknown) (unknown) (no date) (unknown) (unknown) Pernicious anemia (u nits unknown) (unknown) (unknown) (no date) (unknown) (unknown) Personality disorder (units unknown) (unknown) (unknown) (no date) (unknown) (unknown) Position Sitting (un its unknown) (unknown) (unknown) (no date) (unknown) (unknown) Pulse 101 H (units unknown) (unknown) (unknown) (no date) (unknown) (unknown) Pulse Oximetry (%) 98 (units unknown) (unknown) (unknown) (no date) (unknown) (unknown) Pulse Source Monitor (units unknown) (unknown) (unknown) (no date) (unknown) (unknown) RLS (restless legs syndrome) (units unknown) (unknown) (unknown) (no date) (unknown) (unknown) Reason For Visit (un its unknown) (unknown) (unknown) (no date) (unknown) (unknown) Right shoulder pain (units unknown) (unknown) (unknown) (no date) (unknown) (unknown) SWELLING (units unknown) (unknown) (unknown) (no date) (unknown) (unknown) Sacral region somatic dysfunction (units unknown) (unknown) (unknown) (no date) (unknown) (unknown) Sacroiliitis (2011) (units unknown) (unknown) (unknown) (no date) (unknown) (unknown) Seborrheic keratosis (units unknown) (unknown) (unknown) (no date) (unknown) (unknown) Shoulders and neck worse having to use wheel chair (units unknown) (unknown) (unknown) (no date) (unknown) (unknown) Signed By: (units unknown) (unknown) (unknown) (no date) (unknown) (unknown) Sister d Diabetes mellitus (units unknown) (unknown) (unknown) (no date) (unknown) (unknown) Smoking Status : Former smoker (units unknown) (unknown) (unknown) (no date) (unknown) (unknown) Status post colonoscopy (09/2019) (units unknown) (unknown) (unknown) (no date) (unknown) (unknown) Status post endoscopy (12/2019) (units unknown) (unknown) (unknown) (no date) (unknown) (unknown) Status post reduction mammoplasty (07/2010) (units unknown) (unknown) (unknown) (no date) (unknown) (unknown) Stroke (units unknown) (unknown) (unknown) (no date) (unknown) (unknown) Substance abuse (uni ts unknown) (unknown) (unknown) (no date) (unknown) (unknown) Surgical Histo ry (Updated 01/18/20 @ 15:38 by Summer Price DO) (units unknown) (unknown) (unknown) (no date) (unknown) (unknown) Temp 96.9 F L (units unknown) (unknown) (unknown) (no date) (unknown) (unknown) Temp Source Te mporal Artery Scan (units unknown) (unknown) (unknown) (no date) (unknown) (unknown) This note may have been all or partially generated using voice recognition (units unknown) (unknown) (unknown) (no date) (unknown) (unknown) Thoracic regio n somatic dysfunction (units unknown) (unknown) (unknown) (no date) (unknown) (unknown) Tinnitus (units unknown) (unknown) (unknown) (no date) (unknown) (unknown) Tobacco + Subs tance Use (units unknown) (unknown) (unknown) (no date) (unknown) (unknown) Tobacco Status (unit s unknown) (unknown) (unknown) (no date) (unknown) (unknown) Tubular adenom a of colon (12/2014) (units unknown) (unknown) (unknown) (no date) (unknown) (unknown) Visit Reasons: OMT 04 (units unknown) (unknown) (unknown) (no date) (unknown) (unknown) Vitals (units unknown) (unknown) (unknown) (no date) (unknown) (unknown) Albert's (units unknown) (unknown) (unknown) (no date) (unknown) (unknown) _ (units unknown) (unknown) (unknown) (no date) (unknown) (unknown) (units unknown) (unknown) (unknown) (no date) (unknown) (unknown) albuterol [ALBUTEROL] Allergy (Unknown, Verified 01/26/23 11:45) (units unknown) (unknown) (unknown) (no date) (unknown) (unknown) bladder pain (units unknown) (unknown) (unknown) (no date) (unknown) (unknown) congestion and stomach problems (units unknown) (unknown) (unknown) (no date) (unknown) (unknown) dexamethasone Adverse Reaction (Severe, Verified 01/26/23 11:45) (units unknown) (unknown) (unknown) (no date) (unknown) (unknown) did comprehens cassy stool analysis through [facility] too (units unknown) (unknown) (unknown) (no date) (unknown) (unknown) did have SIBO breath through [facility] but unable to get results because was Dr (units unknown) (unknown) (unknown) (no date) (unknown) (unknown) extraarticular R calcaneal fracture on XR and CT, plan on limit weight bearing, (units unknown) (unknown) (unknown) (no date) (unknown) (unknown) folic acid (units unknown) (unknown) (unknown) (no date) (unknown) (unknown) gastritis flares (un its unknown) (unknown) (unknown) (no date) (unknown) (unknown) gluten [GLUTEN ] Allergy (Unknown, Verified 01/26/23 11:45) (units unknown) (unknown) (unknown) (no date) (unknown) (unknown) gluten free vegan (u nits unknown) (unknown) (unknown) (no date) (unknown) (unknown) grass pollen A llergy (Severe, Verified 01/26/23 11:45) (units unknown) (unknown) (unknown) (no date) (unknown) (unknown) have occurred. If there are any questions, please contact the Medical Records (units unknown) (unknown) (unknown) (no date) (unknown) (unknown) hydromorphone [HYDROMORPHONE] Allergy (Mild, Verified 01/26/23 11:45) (units unknown) (unknown) (unknown) (no date) (unknown) (unknown) iodine and osmany enium for thyroid, rather than taking thyroid (units unknown) (unknown) (unknown) (no date) (unknown) (unknown) lithium [LITHI UM] Allergy (Unknown, Verified 01/26/23 11:45) (units unknown) (unknown) (unknown) (no date) (unknown) (unknown) magnesium (units unknown) (unknown) (unknown) (no date) (unknown) (unknown) may occur. Occasional wrong-word or 'sound-alike' substitutions may have (units unknown) (unknown) (unknown) (no date) (unknown) (unknown) occurred due t o the inherent limitations of voice recognition software. Please (units unknown) (unknown) (unknown) (no date) (unknown) (unknown) polyneuropathies (un its unknown) (unknown) (unknown) (no date) (unknown) (unknown) read the note carefully and recognize, using context, where these substitutions (units unknown) (unknown) (unknown) (no date) (unknown) (unknown) mily palmer and brianna, recheck XR 1m. (units unknown) (unknown) (unknown) (no date) (unknown) (unknown) software. Alth ough every effort is made to edit content, hand cell tuber errors (units unknown) (unknown) (unknown) (no date) (unknown) (unknown) tachycardia (units unknown) (unknown) (unknown) (no date) (unknown) (unknown) takes: (units unknown) (unknown) (unknown) (no date) (unknown) (unknown) vitamin C / ir on 125mg plant based (units unknown) (unknown) (unknown) (no date) (unknown) (unknown) vitamin D / K2 99347/100 (units unknown) (unknown) (unknown) (no date) (unknown) (unknown) wants ongoing B12 and needles, hoping to get a formulation without additive (units unknown) (unknown) Result panel 44 (unknown) (no date) (unknown) (unknown) (no value) (units unknown) (unknown) (unknown) (no date) (unknown) (unknown) [id number] (units unknown) (unknown) (unknown) (no date) (unknown) (unknown) 02/09/23 (units unknown) (unknown) (unknown) (no date) (unknown) (unknown) 10:51 (units unknown) (unknown) (unknown) (no date) (unknown) (unknown) 01/01/23 fall f rom step stool, saw ortho ([place]), mildly displaced (units unknown) (unknown) (unknown) (no date) (unknown) (unknown) 67 yo female presents today for OMT (units unknown) (unknown) (unknown) (no date) (unknown) (unknown) 7th day Confucianism (u nits unknown) (unknown) (unknown) (no date) (unknown) (unknown) Accompanied by : Self / Same As Patient (units unknown) (unknown) (unknown) (no date) (unknown) (unknown) Acute pain of left shoulder (units unknown) (unknown) (unknown) (no date) (unknown) (unknown) Age/Sex: 67 / F Date of Service: (units unknown) (unknown) (unknown) (no date) (unknown) (unknown) Allergic react ion to grass pollen (units unknown) (unknown) (unknown) (no date) (unknown) (unknown) Allergic to cats (un its unknown) (unknown) (unknown) (no date) (unknown) (unknown) Allergies (units unknown) (unknown) (unknown) (no date) (unknown) (unknown) [place] [address] (units unknown) (unknown) (unknown) (no date) (unknown) (unknown) Anesthesia (units unknown) (unknown) (unknown) (no date) (unknown) (unknown) Angina pectoris (uni ts unknown) (unknown) (unknown) (no date) (unknown) (unknown) Ankle pain, ch ronic (2014) (units unknown) (unknown) (unknown) (no date) (unknown) (unknown) Ankle pain, chronic (units unknown) (unknown) (unknown) (no date) (unknown) (unknown) Anxiety (units unknown) (unknown) (unknown) (no date) (unknown) (unknown) Attending Dr: Laura Parikh D.O. (units unknown) (unknown) (unknown) (no date) (unknown) (unknown) B12 (IM after failing high dose sublingual) for occipital neuralgia, as well as (units unknown) (unknown) (unknown) (no date) (unknown) (unknown) BP 134/80 (units unknown) (unknown) (unknown) (no date) (unknown) (unknown) Bipolar disorder (un its unknown) (unknown) (unknown) (no date) (unknown) (unknown) Blood Pressure Location Lt brachial (units unknown) (unknown) (unknown) (no date) (unknown) (unknown) Brain cancer (units unknown) (unknown) (unknown) (no date) (unknown) (unknown) Broke R foot, very painful, still not weight bearing. Seeing ortho and podiatry. (units unknown) (unknown) (unknown) (no date) (unknown) (unknown) Cervical somat ic dysfunction (units unknown) (unknown) (unknown) (no date) (unknown) (unknown) Chicken pox (units unknown) (unknown) (unknown) (no date) (unknown) (unknown) Chief Complaint (uni ts unknown) (unknown) (unknown) (no date) (unknown) (unknown) Chief Complain t: multiple pain complaints (units unknown) (unknown) (unknown) (no date) (unknown) (unknown) Child Age: 34 Hx of appendectomy (units unknown) (unknown) (unknown) (no date) (unknown) (unknown) Child Age: 37 Penicillin allergy (units unknown) (unknown) (unknown) (no date) (unknown) (unknown) Child Age: 46 Hay fever (units unknown) (unknown) (unknown) (no date) (unknown) (unknown) 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 (units unknown) (unknown) (unknown) (no date) (unknown) (unknown) Chronic left-s ided thoracic back pain (units unknown) (unknown) (unknown) (no date) (unknown) (unknown) 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 () (units unknown) (unknown) (unknown) (no date) (unknown) (unknown) Compression fr acture of body of thoracic vertebra () (units unknown) (unknown) (unknown) (no date) (unknown) (unknown) Cranial somati c dysfunction (units unknown) (unknown) (unknown) (no date) (unknown) (unknown) DAIRY Allergy (Intermediate, Uncoded 01/26/23 11:45) (units unknown) (unknown) (unknown) (no date) (unknown) (unknown) : 4 Acct:[id number] (units unknown) (unknown) (unknown) (no date) (unknown) (unknown) Depression (09/21/14) (units unknown) (unknown) (unknown) (no date) (unknown) (unknown) Depression (units unknown) (unknown) (unknown) (no date) (unknown) (unknown) Dept at . (units unknown) (unknown) (unknown) (no date) (unknown) (unknown) Details: (units unknown) (unknown) (unknown) (no date) (unknown) (unknown) Documented By: Laura Parikh D.O. 02/09/23 1050 (units unknown) (unknown) (unknown) (no date) (unknown) (unknown) Draft (units unknown) (unknown) (unknown) (no date) (unknown) (unknown) Environmental allergies (units unknown) (unknown) (unknown) (no date) (unknown) (unknown) Esophageal stricture (units unknown) (unknown) (unknown) (no date) (unknown) (unknown) Esophagitis (units unknown) (unknown) (unknown) (no date) (unknown) (unknown) Family History (Updated 06/08/18 @ 12:37 by Rabia Jacob) (units unknown) (unknown) (unknown) (no date) (unknown) (unknown) Family Practic e Office Visit (units unknown) (unknown) (unknown) (no date) (unknown) (unknown) Fibromyalgia (units unknown) (unknown) (unknown) (no date) (unknown) (unknown) [facility] (units unknown) (unknown) (unknown) (no date) (unknown) (unknown) Foot pain (2011) (un its unknown) (unknown) (unknown) (no date) (unknown) (unknown) Gastropathy (units unknown) (unknown) (unknown) (no date) (unknown) (unknown) Gets relief with OMT (units unknown) (unknown) (unknown) (no date) (unknown) (unknown) Grandmother Di abetes mellitus (units unknown) (unknown) (unknown) (no date) (unknown) (unknown) HPI (units unknown) (unknown) (unknown) (no date) (unknown) (unknown) Hayfever (units unknown) (unknown) (unknown) (no date) (unknown) (unknown) Heart disease (units unknown) (unknown) (unknown) (no date) (unknown) (unknown) Height 5 ft 3.5 in ( units unknown) (unknown) (unknown) (no date) (unknown) (unknown) Hemorrhoids (units unknown) (unknown) (unknown) (no date) (unknown) (unknown) Hiatal hernia (units unknown) (unknown) (unknown) (no date) (unknown) (unknown) High cholesterol (un its unknown) (unknown) (unknown) (no date) (unknown) (unknown) History of candice betes mellitus (units unknown) (unknown) (unknown) (no date) (unknown) (unknown) History of fundoplication (units unknown) (unknown) (unknown) (no date) (unknown) (unknown) History of rep air of hiatal hernia (11/2011) (units unknown) (unknown) (unknown) (no date) (unknown) (unknown) History of tonsillectomy (1971) (units unknown) (unknown) (unknown) (no date) (unknown) (unknown) Hives (units unknown) (unknown) (unknown) (no date) (unknown) (unknown) Hypertension (units unknown) (unknown) (unknown) (no date) (unknown) (unknown) Hypothyroidism (unit s unknown) (unknown) (unknown) (no date) (unknown) (unknown) IBS (irritable bowel syndrome) (units unknown) (unknown) (unknown) (no date) (unknown) (unknown) 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 unknown) (unknown) (unknown) (no date) (unknown) (unknown) Intake Note: (units unknown) (unknown) (unknown) (no date) (unknown) (unknown) Intake perform ed by: Lani Benavides (units unknown) (unknown) (unknown) (no date) (unknown) (unknown) Intake (units unknown) (unknown) (unknown) (no date) (unknown) (unknown) Intake- [place] [facility] Staff (units unknown) (unknown) (unknown) (no date) (unknown) (unknown) Last Menstural Cycle + Details (units unknown) (unknown) (unknown) (no date) (unknown) (unknown) Leg worse compensating for foot positions (units unknown) (unknown) (unknown) (no date) (unknown) (unknown) Liver cancer (units unknown) (unknown) (unknown) (no date) (unknown) (unknown) Loc: [facility] (units unknown) (unknown) (unknown) (no date) (unknown) (unknown) Lumbar facet arthropathy (2013) (units unknown) (unknown) (unknown) (no date) (unknown) (unknown) Lumbar region somatic dysfunction (units unknown) (unknown) (unknown) (no date) (unknown) (unknown) Lung cancer (units unknown) (unknown) (unknown) (no date) (unknown) (unknown) Medical Histor y (Updated 01/26/23 @ 11:31 by Laura Parikh DO) (units unknown) (unknown) (unknown) (no date) (unknown) (unknown) Mother d Diabetes mellitus (units unknown) (unknown) (unknown) (no date) (unknown) (unknown) Obesity (units unknown) (unknown) (unknown) (no date) (unknown) (unknown) Osteoarthritis (2011) (units unknown) (unknown) (unknown) (no date) (unknown) (unknown) Osteoporosis o f lumbar spine (units unknown) (unknown) (unknown) (no date) (unknown) (unknown) Osteoporosis (units unknown) (unknown) (unknown) (no date) (unknown) (unknown) Other Menstrua l Period: Postmenopausal (units unknown) (unknown) (unknown) (no date) (unknown) (unknown) Oxygen Deliver y Method room air (units unknown) (unknown) (unknown) (no date) (unknown) (unknown) PFSH (units unknown) (unknown) (unknown) (no date) (unknown) (unknown) PTSD (post-tra umatic stress disorder) (units unknown) (unknown) (unknown) (no date) (unknown) (unknown) Patient: Whitley Oakes MR#: M (units unknown) (unknown) (unknown) (no date) (unknown) (unknown) Pelvic somatic dysfunction (units unknown) (unknown) (unknown) (no date) (unknown) (unknown) Pernicious anemia (u nits unknown) (unknown) (unknown) (no date) (unknown) (unknown) Personality disorder (units unknown) (unknown) (unknown) (no date) (unknown) (unknown) Position Sitting (un its unknown) (unknown) (unknown) (no date) (unknown) (unknown) Pulse 101 H (units unknown) (unknown) (unknown) (no date) (unknown) (unknown) Pulse Oximetry (%) 98 (units unknown) (unknown) (unknown) (no date) (unknown) (unknown) Pulse Source Monitor (units unknown) (unknown) (unknown) (no date) (unknown) (unknown) RLS (restless legs syndrome) (units unknown) (unknown) (unknown) (no date) (unknown) (unknown) Reason For Visit (un its unknown) (unknown) (unknown) (no date) (unknown) (unknown) Right shoulder pain (units unknown) (unknown) (unknown) (no date) (unknown) (unknown) SWELLING (units unknown) (unknown) (unknown) (no date) (unknown) (unknown) Sacral region somatic dysfunction (units unknown) (unknown) (unknown) (no date) (unknown) (unknown) Sacroiliitis (2011) (units unknown) (unknown) (unknown) (no date) (unknown) (unknown) Seborrheic keratosis (units unknown) (unknown) (unknown) (no date) (unknown) (unknown) Shoulders and neck worse having to use wheel chair (units unknown) (unknown) (unknown) (no date) (unknown) (unknown) Signed By: (units unknown) (unknown) (unknown) (no date) (unknown) (unknown) Sister d Diabetes mellitus (units unknown) (unknown) (unknown) (no date) (unknown) (unknown) Smoking Status : Former smoker (units unknown) (unknown) (unknown) (no date) (unknown) (unknown) Status post colonoscopy (09/2019) (units unknown) (unknown) (unknown) (no date) (unknown) (unknown) Status post endoscopy (12/2019) (units unknown) (unknown) (unknown) (no date) (unknown) (unknown) Status post reduction mammoplasty (07/2010) (units unknown) (unknown) (unknown) (no date) (unknown) (unknown) Still unable t o bear weight- seeing ortho later this week (units unknown) (unknown) (unknown) (no date) (unknown) (unknown) Stroke (units unknown) (unknown) (unknown) (no date) (unknown) (unknown) Substance abuse (uni ts unknown) (unknown) (unknown) (no date) (unknown) (unknown) Surgical Histo ry (Updated 01/18/20 @ 15:38 by Summer Price DO) (units unknown) (unknown) (unknown) (no date) (unknown) (unknown) Temp 96.9 F L (units unknown) (unknown) (unknown) (no date) (unknown) (unknown) Temp Source Te mporal Artery Scan (units unknown) (unknown) (unknown) (no date) (unknown) (unknown) This note may have been all or partially generated using voice recognition (units unknown) (unknown) (unknown) (no date) (unknown) (unknown) Thoracic regio n somatic dysfunction (units unknown) (unknown) (unknown) (no date) (unknown) (unknown) Tinnitus (units unknown) (unknown) (unknown) (no date) (unknown) (unknown) Tobacco + Subs tance Use (units unknown) (unknown) (unknown) (no date) (unknown) (unknown) Tobacco Status (unit s unknown) (unknown) (unknown) (no date) (unknown) (unknown) Tubular adenom a of colon (12/2014) (units unknown) (unknown) (unknown) (no date) (unknown) (unknown) Visit Reasons: OMT 04 (units unknown) (unknown) (unknown) (no date) (unknown) (unknown) Vitals (units unknown) (unknown) (unknown) (no date) (unknown) (unknown) [place] (units unknown) (unknown) (unknown) (no date) (unknown) (unknown) _ (units unknown) (unknown) (unknown) (no date) (unknown) (unknown) (units unknown) (unknown) (unknown) (no date) (unknown) (unknown) albuterol [ALBUTEROL] Allergy (Unknown, Verified 01/26/23 11:45) (units unknown) (unknown) (unknown) (no date) (unknown) (unknown) bladder pain (units unknown) (unknown) (unknown) (no date) (unknown) (unknown) congestion and stomach problems (units unknown) (unknown) (unknown) (no date) (unknown) (unknown) dexamethasone Adverse Reaction (Severe, Verified 01/26/23 11:45) (units unknown) (unknown) (unknown) (no date) (unknown) (unknown) did comprehens cassy stool analysis through [employer] too (units unknown) (unknown) (unknown) (no date) (unknown) (unknown) did have SIBO breath through [facility] but unable to get results because was Dr (units unknown) (unknown) (unknown) (no date) (unknown) (unknown) extraarticular R calcaneal fracture on XR and CT, plan on limit weight bearing, (units unknown) (unknown) (unknown) (no date) (unknown) (unknown) folic acid (units unknown) (unknown) (unknown) (no date) (unknown) (unknown) gastritis flares (un its unknown) (unknown) (unknown) (no date) (unknown) (unknown) gluten [GLUTEN ] Allergy (Unknown, Verified 01/26/23 11:45) (units unknown) (unknown) (unknown) (no date) (unknown) (unknown) gluten free vegan (u nits unknown) (unknown) (unknown) (no date) (unknown) (unknown) grass pollen A llergy (Severe, Verified 01/26/23 11:45) (units unknown) (unknown) (unknown) (no date) (unknown) (unknown) have occurred. If there are any questions, please contact the Medical Records (units unknown) (unknown) (unknown) (no date) (unknown) (unknown) hydromorphone [HYDROMORPHONE] Allergy (Mild, Verified 01/26/23 11:45) (units unknown) (unknown) (unknown) (no date) (unknown) (unknown) iodine and osmany enium for thyroid, rather than taking thyroid (units unknown) (unknown) (unknown) (no date) (unknown) (unknown) lithium [LITHI UM] Allergy (Unknown, Verified 01/26/23 11:45) (units unknown) (unknown) (unknown) (no date) (unknown) (unknown) magnesium (units unknown) (unknown) (unknown) (no date) (unknown) (unknown) may occur. Occasional wrong-word or 'sound-alike' substitutions may have (units unknown) (unknown) (unknown) (no date) (unknown) (unknown) occurred due t o the inherent limitations of voice recognition software. Please (units unknown) (unknown) (unknown) (no date) (unknown) (unknown) polyneuropathies (un its unknown) (unknown) (unknown) (no date) (unknown) (unknown) read the note carefully and recognize, using context, where these substitutions (units unknown) (unknown) (unknown) (no date) (unknown) (unknown) mily palmer and brianna, recheck XR 1m. (units unknown) (unknown) (unknown) (no date) (unknown) (unknown) software. Alth ough every effort is made to edit content, hand cell tuber errors (units unknown) (unknown) (unknown) (no date) (unknown) (unknown) tachycardia (units unknown) (unknown) (unknown) (no date) (unknown) (unknown) takes: (units unknown) (unknown) (unknown) (no date) (unknown) (unknown) vitamin C / ir on 125mg plant based (units unknown) (unknown) (unknown) (no date) (unknown) (unknown) vitamin D / K2 46281/100 (units unknown) (unknown) (unknown) (no date) (unknown) (unknown) wants ongoing B12 and needles, hoping to get a formulation without additive (units unknown) (unknown) Result panel 45 (unknown) (no date) (unknown) (unknown) (no value) (units unknown) (unknown) (unknown) (no date) (unknown) (unknown) (1) Pathologic al fracture, right foot, sequela: (units unknown) (unknown) (unknown) (no date) (unknown) (unknown) (10) Somatic dysfunction of abdominal region: (units unknown) (unknown) (unknown) (no date) (unknown) (unknown) (11) Somatic dysfunction of rib region: (units unknown) (unknown) (unknown) (no date) (unknown) (unknown) (12) Somatic dysfunction of lower extremity: (units unknown) (unknown) (unknown) (no date) (unknown) (unknown) (13) Somatic dysfunction of upper extremity: (units unknown) (unknown) (unknown) (no date) (unknown) (unknown) (2) IBS (irrit able bowel syndrome): (units unknown) (unknown) (unknown) (no date) (unknown) (unknown) (3) Pernicious anemia: (units unknown) (unknown) (unknown) (no date) (unknown) (unknown) (4) Cranial so matic dysfunction: (units unknown) (unknown) (unknown) (no date) (unknown) (unknown) (5) Cervical s omatic dysfunction: (units unknown) (unknown) (unknown) (no date) (unknown) (unknown) (6) Thoracic r egion somatic dysfunction: (units unknown) (unknown) (unknown) (no date) (unknown) (unknown) (7) Lumbar reg ion somatic dysfunction: (units unknown) (unknown) (unknown) (no date) (unknown) (unknown) (8) Pelvic zoey atic dysfunction: (units unknown) (unknown) (unknown) (no date) (unknown) (unknown) (9) Sacral reg ion somatic dysfunction: (units unknown) (unknown) (unknown) (no date) (unknown) (unknown) [id number] (units unknown) (unknown) (unknown) (no date) (unknown) (unknown) 02/09/23 (units unknown) (unknown) (unknown) (no date) (unknown) (unknown) 10:51 (units unknown) (unknown) (unknown) (no date) (unknown) (unknown) 01/01/23 fall f rom step stool, saw ortho ([place]), mildly displaced (units unknown) (unknown) (unknown) (no date) (unknown) (unknown) 67 yo female presents today for OMT (units unknown) (unknown) (unknown) (no date) (unknown) (unknown) 7th day Confucianism (u nits unknown) (unknown) (unknown) (no date) (unknown) (unknown) Abdomen: magaly c ganglion restr (units unknown) (unknown) (unknown) (no date) (unknown) (unknown) Accompanied by : Self / Same As Patient (units unknown) (unknown) (unknown) (no date) (unknown) (unknown) Acute pain of left shoulder (units unknown) (unknown) (unknown) (no date) (unknown) (unknown) Age/Sex: 67 / F Date of Service: (units unknown) (unknown) (unknown) (no date) (unknown) (unknown) Allergic react ion to grass pollen (units unknown) (unknown) (unknown) (no date) (unknown) (unknown) Allergic to cats (un its unknown) (unknown) (unknown) (no date) (unknown) (unknown) Allergies (units unknown) (unknown) (unknown) (no date) (unknown) (unknown) [place] [id number] (units unknown) (unknown) (unknown) (no date) (unknown) (unknown) Anesthesia (units unknown) (unknown) (unknown) (no date) (unknown) (unknown) Angina pectoris (uni ts unknown) (unknown) (unknown) (no date) (unknown) (unknown) Ankle pain, ch ronic (2014) (units unknown) (unknown) (unknown) (no date) (unknown) (unknown) Ankle pain, chronic (units unknown) (unknown) (unknown) (no date) (unknown) (unknown) Anxiety (units unknown) (unknown) (unknown) (no date) (unknown) (unknown) Assessment + Plan (u nits unknown) (unknown) (unknown) (no date) (unknown) (unknown) Attending Dr: Laura Parikh DElliottOElliott (units unknown) (unknown) (unknown) (no date) (unknown) (unknown) B12 (IM after failing high dose sublingual) for occipital neuralgia, as well as (units unknown) (unknown) (unknown) (no date) (unknown) (unknown) BP 134/80 (units unknown) (unknown) (unknown) (no date) (unknown) (unknown) Bipolar disorder (un its unknown) (unknown) (unknown) (no date) (unknown) (unknown) Blood Pressure Location Lt brachial (units unknown) (unknown) (unknown) (no date) (unknown) (unknown) Brain cancer (units unknown) (unknown) (unknown) (no date) (unknown) (unknown) Broke R foot, very painful, still not weight bearing. Seeing ortho and podiatry. (units unknown) (unknown) (unknown) (no date) (unknown) (unknown) Cervical somat ic dysfunction (units unknown) (unknown) (unknown) (no date) (unknown) (unknown) Cervical: C4 FRSL ? (units unknown) (unknown) (unknown) (no date) (unknown) (unknown) Chicken pox (units unknown) (unknown) (unknown) (no date) (unknown) (unknown) Chief Complaint (uni ts unknown) (unknown) (unknown) (no date) (unknown) (unknown) Chief Complain t: multiple pain complaints (units unknown) (unknown) (unknown) (no date) (unknown) (unknown) Child Age: 34 Hx of appendectomy (units unknown) (unknown) (unknown) (no date) (unknown) (unknown) Child Age: 37 Penicillin allergy (units unknown) (unknown) (unknown) (no date) (unknown) (unknown) Child Age: 46 Hay fever (units unknown) (unknown) (unknown) (no date) (unknown) (unknown) 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 (units unknown) (unknown) (unknown) (no date) (unknown) (unknown) Chronic left-s ided thoracic back pain (units unknown) (unknown) (unknown) (no date) (unknown) (unknown) 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 () (units unknown) (unknown) (unknown) (no date) (unknown) (unknown) Compression fr acture of body of thoracic vertebra () (units unknown) (unknown) (unknown) (no date) (unknown) (unknown) Cranial somati c dysfunction (units unknown) (unknown) (unknown) (no date) (unknown) (unknown) DAIRY Allergy (Intermediate, Uncoded 01/26/23 11:45) (units unknown) (unknown) (unknown) (no date) (unknown) (unknown) : 4 Acct:[id number] (units unknown) (unknown) (unknown) (no date) (unknown) (unknown) Depression (09/21/14) (units unknown) (unknown) (unknown) (no date) (unknown) (unknown) Depression (units unknown) (unknown) (unknown) (no date) (unknown) (unknown) Dept at . (units unknown) (unknown) (unknown) (no date) (unknown) (unknown) Details: (units unknown) (unknown) (unknown) (no date) (unknown) (unknown) Documented By: Laura Parikh D.O. 02/09/23 1050 (units unknown) (unknown) (unknown) (no date) (unknown) (unknown) Draft (units unknown) (unknown) (unknown) (no date) (unknown) (unknown) Environmental allergies (units unknown) (unknown) (unknown) (no date) (unknown) (unknown) Esophageal stricture (units unknown) (unknown) (unknown) (no date) (unknown) (unknown) Esophagitis (units unknown) (unknown) (unknown) (no date) (unknown) (unknown) Exam Narrative (unit s unknown) (unknown) (unknown) (no date) (unknown) (unknown) Exam Narrative: (uni ts unknown) (unknown) (unknown) (no date) (unknown) (unknown) Exam (units unknown) (unknown) (unknown) (no date) (unknown) (unknown) Extr: R should er ROM intact, R with limited F t 115 deg (units unknown) (unknown) (unknown) (no date) (unknown) (unknown) Family History (Updated 06/08/18 @ 12:37 by Rabia Jacob) (units unknown) (unknown) (unknown) (no date) (unknown) (unknown) Family Practic e Office Visit (units unknown) (unknown) (unknown) (no date) (unknown) (unknown) Fibromyalgia (units unknown) (unknown) (unknown) (no date) (unknown) (unknown) [facility] (units unknown) (unknown) (unknown) (no date) (unknown) (unknown) Foot pain (2011) (un its unknown) (unknown) (unknown) (no date) (unknown) (unknown) Gastropathy (units unknown) (unknown) (unknown) (no date) (unknown) (unknown) General: pleas ant, cooperative, +central adiposity, sitting comfortably in no (units unknown) (unknown) (unknown) (no date) (unknown) (unknown) Gets relief with OMT (units unknown) (unknown) (unknown) (no date) (unknown) (unknown) Grandmother Di abetes mellitus (units unknown) (unknown) (unknown) (no date) (unknown) (unknown) HPI (units unknown) (unknown) (unknown) (no date) (unknown) (unknown) Hayfever (units unknown) (unknown) (unknown) (no date) (unknown) (unknown) Head: b/l OM r estr, SBS compr (units unknown) (unknown) (unknown) (no date) (unknown) (unknown) Heart disease (units unknown) (unknown) (unknown) (no date) (unknown) (unknown) Height 5 ft 3.5 in ( units unknown) (unknown) (unknown) (no date) (unknown) (unknown) Hemorrhoids (units unknown) (unknown) (unknown) (no date) (unknown) (unknown) Hiatal hernia (units unknown) (unknown) (unknown) (no date) (unknown) (unknown) High cholesterol (un its unknown) (unknown) (unknown) (no date) (unknown) (unknown) History of candice betes mellitus (units unknown) (unknown) (unknown) (no date) (unknown) (unknown) History of fundoplication (units unknown) (unknown) (unknown) (no date) (unknown) (unknown) History of rep air of hiatal hernia (11/2011) (units unknown) (unknown) (unknown) (no date) (unknown) (unknown) History of tonsillectomy (1971) (units unknown) (unknown) (unknown) (no date) (unknown) (unknown) Hives (units unknown) (unknown) (unknown) (no date) (unknown) (unknown) Hypertension (units unknown) (unknown) (unknown) (no date) (unknown) (unknown) Hypothyroidism (unit s unknown) (unknown) (unknown) (no date) (unknown) (unknown) IBS (irritable bowel syndrome) (units unknown) (unknown) (unknown) (no date) (unknown) (unknown) 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 unknown) (unknown) (unknown) (no date) (unknown) (unknown) Intake Note: (units unknown) (unknown) (unknown) (no date) (unknown) (unknown) Intake perform ed by: Lani Benavides (units unknown) (unknown) (unknown) (no date) (unknown) (unknown) Intake (units unknown) (unknown) (unknown) (no date) (unknown) (unknown) Intake- Kasie [facility] Staff (units unknown) (unknown) (unknown) (no date) (unknown) (unknown) Irritable julien l syndrome type: with both diarrhea and constipation (units unknown) (unknown) (unknown) (no date) (unknown) (unknown) Last Menstural Cycle + Details (units unknown) (unknown) (unknown) (no date) (unknown) (unknown) Leg worse compensating for foot positions (units unknown) (unknown) (unknown) (no date) (unknown) (unknown) Liver cancer (units unknown) (unknown) (unknown) (no date) (unknown) (unknown) Loc: [facility] (units unknown) (unknown) (unknown) (no date) (unknown) (unknown) Lower extremit ies: R FH ant (units unknown) (unknown) (unknown) (no date) (unknown) (unknown) Lumbar facet arthropathy (2013) (units unknown) (unknown) (unknown) (no date) (unknown) (unknown) Lumbar region somatic dysfunction (units unknown) (unknown) (unknown) (no date) (unknown) (unknown) Lumbar: L1 FRSR (uni ts unknown) (unknown) (unknown) (no date) (unknown) (unknown) Lung cancer (units unknown) (unknown) (unknown) (no date) (unknown) (unknown) Managing IBS a nd pernicious anemia with supplementation and dietary (units unknown) (unknown) (unknown) (no date) (unknown) (unknown) Medical Histor y (Updated 02/09/23 @ 11:24 by Laura Parikh DO) (units unknown) (unknown) (unknown) (no date) (unknown) (unknown) Mother d Diabetes mellitus (units unknown) (unknown) (unknown) (no date) (unknown) (unknown) Neuro: alert a nd oriented to person and situation (units unknown) (unknown) (unknown) (no date) (unknown) (unknown) OMT with PH an d avoiding R distal LE, focus on autonomic nervous system today (units unknown) (unknown) (unknown) (no date) (unknown) (unknown) Obesity (units unknown) (unknown) (unknown) (no date) (unknown) (unknown) Osteoarthritis (2012) (units unknown) (unknown) (unknown) (no date) (unknown) (unknown) Osteopathic Structural Exam: (units unknown) (unknown) (unknown) (no date) (unknown) (unknown) Osteoporosis o f lumbar spine (units unknown) (unknown) (unknown) (no date) (unknown) (unknown) Osteoporosis (units unknown) (unknown) (unknown) (no date) (unknown) (unknown) Other Menstrua l Period: Postmenopausal (units unknown) (unknown) (unknown) (no date) (unknown) (unknown) Oxygen Deliver y Method room air (units unknown) (unknown) (unknown) (no date) (unknown) (unknown) PFSH (units unknown) (unknown) (unknown) (no date) (unknown) (unknown) PTSD (post-tra umatic stress disorder) (units unknown) (unknown) (unknown) (no date) (unknown) (unknown) Patient: Whitley Oakes MR#: M (units unknown) (unknown) (unknown) (no date) (unknown) (unknown) Pelvic somatic dysfunction (units unknown) (unknown) (unknown) (no date) (unknown) (unknown) Pelvis: L ant (units unknown) (unknown) (unknown) (no date) (unknown) (unknown) Pernicious anemia (u nits unknown) (unknown) (unknown) (no date) (unknown) (unknown) Personality disorder (units unknown) (unknown) (unknown) (no date) (unknown) (unknown) Plan (units unknown) (unknown) (unknown) (no date) (unknown) (unknown) Position Sitting (un its unknown) (unknown) (unknown) (no date) (unknown) (unknown) Psych: well ke mpt, speech and movement normal, normal affect (units unknown) (unknown) (unknown) (no date) (unknown) (unknown) Pulse 101 H (units unknown) (unknown) (unknown) (no date) (unknown) (unknown) Pulse Oximetry (%) 98 (units unknown) (unknown) (unknown) (no date) (unknown) (unknown) Pulse Source Monitor (units unknown) (unknown) (unknown) (no date) (unknown) (unknown) Qualified Code (s): K58.2 - Mixed irritable bowel syndrome (units unknown) (unknown) (unknown) (no date) (unknown) (unknown) Qualifiers: (units unknown) (unknown) (unknown) (no date) (unknown) (unknown) RLS (restless legs syndrome) (units unknown) (unknown) (unknown) (no date) (unknown) (unknown) Reason For Visit (un its unknown) (unknown) (unknown) (no date) (unknown) (unknown) Resp: normal e ffort, able to speak in complete sentences (units unknown) (unknown) (unknown) (no date) (unknown) (unknown) Ribcage: R2-3 post, b/l 12 exh (units unknown) (unknown) (unknown) (no date) (unknown) (unknown) Right shoulder pain (units unknown) (unknown) (unknown) (no date) (unknown) (unknown) SWELLING (units unknown) (unknown) (unknown) (no date) (unknown) (unknown) Sacral region somatic dysfunction (units unknown) (unknown) (unknown) (no date) (unknown) (unknown) Sacroiliitis (2012) (units unknown) (unknown) (unknown) (no date) (unknown) (unknown) Sacrum: b/l F, L>R SI restr (units unknown) (unknown) (unknown) (no date) (unknown) (unknown) Seborrheic keratosis (units unknown) (unknown) (unknown) (no date) (unknown) (unknown) Seeing podiatr y, getting splint re foot fracture. Still not weighted, will re (units unknown) (unknown) (unknown) (no date) (unknown) (unknown) Shoulders and neck worse having to use wheel chair (units unknown) (unknown) (unknown) (no date) (unknown) (unknown) Signed By: (units unknown) (unknown) (unknown) (no date) (unknown) (unknown) Sister d Diabetes mellitus (units unknown) (unknown) (unknown) (no date) (unknown) (unknown) Smoking Status : Former smoker (units unknown) (unknown) (unknown) (no date) (unknown) (unknown) Status post colonoscopy (09/2019) (units unknown) (unknown) (unknown) (no date) (unknown) (unknown) Status post endoscopy (12/2019) (units unknown) (unknown) (unknown) (no date) (unknown) (unknown) Status post reduction mammoplasty (07/2010) (units unknown) (unknown) (unknown) (no date) (unknown) (unknown) Status: Acute (units unknown) (unknown) (unknown) (no date) (unknown) (unknown) Status: Chronic (uni ts unknown) (unknown) (unknown) (no date) (unknown) (unknown) Still unable t o bear weight- seeing ortho later this week (units unknown) (unknown) (unknown) (no date) (unknown) (unknown) Stroke (units unknown) (unknown) (unknown) (no date) (unknown) (unknown) Substance abuse (uni ts unknown) (unknown) (unknown) (no date) (unknown) (unknown) Surgical Histo ry (Updated 01/18/20 @ 15:38 by Summer Price DO) (units unknown) (unknown) (unknown) (no date) (unknown) (unknown) Temp 96.9 F L (units unknown) (unknown) (unknown) (no date) (unknown) (unknown) Temp Source Te mporal Artery Scan (units unknown) (unknown) (unknown) (no date) (unknown) (unknown) This note may have been all or partially generated using voice recognition (units unknown) (unknown) (unknown) (no date) (unknown) (unknown) Thoracic regio n somatic dysfunction (units unknown) (unknown) (unknown) (no date) (unknown) (unknown) 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, T7 FRSR (units unknown) (unknown) (unknown) (no date) (unknown) (unknown) Time Coding Mi nutes Spent: (must be on same date of service/appointment) (units unknown) (unknown) (unknown) (no date) (unknown) (unknown) Time Spent (units unknown) (unknown) (unknown) (no date) (unknown) (unknown) Tinnitus (units unknown) (unknown) (unknown) (no date) (unknown) (unknown) Tobacco + Subs tance Use (units unknown) (unknown) (unknown) (no date) (unknown) (unknown) Tobacco Status (unit s unknown) (unknown) (unknown) (no date) (unknown) (unknown) Total visit ti me apart from OMT 31 minutes today, including 20 minutes face to (units unknown) (unknown) (unknown) (no date) (unknown) (unknown) Tubular adenom a of colon (12/2014) (units unknown) (unknown) (unknown) (no date) (unknown) (unknown) Upper extremit ies: b/l scapulothoracic restr and levator scap htn (units unknown) (unknown) (unknown) (no date) (unknown) (unknown) Visit Reasons: OMT 04 (units unknown) (unknown) (unknown) (no date) (unknown) (unknown) Vitals (units unknown) (unknown) (unknown) (no date) (unknown) (unknown) Albert's (units unknown) (unknown) (unknown) (no date) (unknown) (unknown) _ (units unknown) (unknown) (unknown) (no date) (unknown) (unknown) (units unknown) (unknown) (unknown) (no date) (unknown) (unknown) acute distress , has crutch for ambulation (units unknown) (unknown) (unknown) (no date) (unknown) (unknown) albuterol [ALBUTEROL] Allergy (Unknown, Verified 01/26/23 11:45) (units unknown) (unknown) (unknown) (no date) (unknown) (unknown) bladder pain (units unknown) (unknown) (unknown) (no date) (unknown) (unknown) congestion and stomach problems (units unknown) (unknown) (unknown) (no date) (unknown) (unknown) coordinating care. ( units unknown) (unknown) (unknown) (no date) (unknown) (unknown) dexamethasone Adverse Reaction (Severe, Verified 01/26/23 11:45) (units unknown) (unknown) (unknown) (no date) (unknown) (unknown) did comprehens cassy stool analysis through [facility] too (units unknown) (unknown) (unknown) (no date) (unknown) (unknown) did have SIBO breath through [facility] but unable to get results because was Dr (units unknown) (unknown) (unknown) (no date) (unknown) (unknown) eval after nex t ortho f/u. (units unknown) (unknown) (unknown) (no date) (unknown) (unknown) extraarticular R calcaneal fracture on XR and CT, plan on limit weight bearing, (units unknown) (unknown) (unknown) (no date) (unknown) (unknown) face on histor y, exam, and counseling, and 11 minutes reviewing, charting, and (units unknown) (unknown) (unknown) (no date) (unknown) (unknown) folic acid (units unknown) (unknown) (unknown) (no date) (unknown) (unknown) gastritis flares (un its unknown) (unknown) (unknown) (no date) (unknown) (unknown) gluten [GLUTEN ] Allergy (Unknown, Verified 01/26/23 11:45) (units unknown) (unknown) (unknown) (no date) (unknown) (unknown) gluten free vegan (u nits unknown) (unknown) (unknown) (no date) (unknown) (unknown) grass pollen A llergy (Severe, Verified 01/26/23 11:45) (units unknown) (unknown) (unknown) (no date) (unknown) (unknown) have occurred. If there are any questions, please contact the Medical Records (units unknown) (unknown) (unknown) (no date) (unknown) (unknown) hydromorphone [HYDROMORPHONE] Allergy (Mild, Verified 01/26/23 11:45) (units unknown) (unknown) (unknown) (no date) (unknown) (unknown) iodine and osmany enium for thyroid, rather than taking thyroid (units unknown) (unknown) (unknown) (no date) (unknown) (unknown) lithium [LITHI UM] Allergy (Unknown, Verified 01/26/23 11:45) (units unknown) (unknown) (unknown) (no date) (unknown) (unknown) magnesium (units unknown) (unknown) (unknown) (no date) (unknown) (unknown) may occur. Occasional wrong-word or 'sound-alike' substitutions may have (units unknown) (unknown) (unknown) (no date) (unknown) (unknown) modifications. Labs today and B12 injection. (units unknown) (unknown) (unknown) (no date) (unknown) (unknown) occurred due t o the inherent limitations of voice recognition software. Please (units unknown) (unknown) (unknown) (no date) (unknown) (unknown) per OSE. (units unknown) (unknown) (unknown) (no date) (unknown) (unknown) polyneuropathies (un its unknown) (unknown) (unknown) (no date) (unknown) (unknown) read the note carefully and recognize, using context, where these substitutions (units unknown) (unknown) (unknown) (no date) (unknown) (unknown) mily stover, recheck XR 1m. (units unknown) (unknown) (unknown) (no date) (unknown) (unknown) software. Alth ough every effort is made to edit content, hand cell tuber errors (units unknown) (unknown) (unknown) (no date) (unknown) (unknown) tachycardia (units unknown) (unknown) (unknown) (no date) (unknown) (unknown) takes: (units unknown) (unknown) (unknown) (no date) (unknown) (unknown) vitamin C / ir on 125mg plant based (units unknown) (unknown) (unknown) (no date) (unknown) (unknown) vitamin D / K2 16068/100 (units unknown) (unknown) (unknown) (no date) (unknown) (unknown) wants ongoing B12 and needles, hoping to get a formulation without additive (units unknown) (unknown) Result panel 46 (unknown) (no date) (unknown) (unknown) (no value) (units unknown) (unknown) (unknown) (no date) (unknown) (unknown) (1) Pathologic al fracture, right foot, sequela: (units unknown) (unknown) (unknown) (no date) (unknown) (unknown) (10) Sacral re gion somatic dysfunction: (units unknown) (unknown) (unknown) (no date) (unknown) (unknown) (11) Somatic dysfunction of abdominal region: (units unknown) (unknown) (unknown) (no date) (unknown) (unknown) (12) Somatic dysfunction of rib region: (units unknown) (unknown) (unknown) (no date) (unknown) (unknown) (13) Somatic dysfunction of lower extremity: (units unknown) (unknown) (unknown) (no date) (unknown) (unknown) (14) Somatic dysfunction of upper extremity: (units unknown) (unknown) (unknown) (no date) (unknown) (unknown) (2) IBS (irrit able bowel syndrome): (units unknown) (unknown) (unknown) (no date) (unknown) (unknown) (3) Chronic sinusitis: (units unknown) (unknown) (unknown) (no date) (unknown) (unknown) (4) Pernicious anemia: (units unknown) (unknown) (unknown) (no date) (unknown) (unknown) (5) Cranial so matic dysfunction: (units unknown) (unknown) (unknown) (no date) (unknown) (unknown) (6) Cervical s omatic dysfunction: (units unknown) (unknown) (unknown) (no date) (unknown) (unknown) (7) Thoracic r egion somatic dysfunction: (units unknown) (unknown) (unknown) (no date) (unknown) (unknown) (8) Lumbar reg ion somatic dysfunction: (units unknown) (unknown) (unknown) (no date) (unknown) (unknown) (9) Pelvic zoey atic dysfunction: (units unknown) (unknown) (unknown) (no date) (unknown) (unknown) [id number] (units unknown) (unknown) (unknown) (no date) (unknown) (unknown) 02/09/23 1137 (units unknown) (unknown) (unknown) (no date) (unknown) (unknown) 02/09/23 (units unknown) (unknown) (unknown) (no date) (unknown) (unknown) 10:51 (units unknown) (unknown) (unknown) (no date) (unknown) (unknown) 01/01/23 fall f rom step stool, saw ortho ([place]), mildly displaced (units unknown) (unknown) (unknown) (no date) (unknown) (unknown) 67 yo female presents today for OMT (units unknown) (unknown) (unknown) (no date) (unknown) (unknown) 7th day Confucianism (u nits unknown) (unknown) (unknown) (no date) (unknown) (unknown) Abdomen: magaly c ganglion restr (units unknown) (unknown) (unknown) (no date) (unknown) (unknown) Accompanied by : Self / Same As Patient (units unknown) (unknown) (unknown) (no date) (unknown) (unknown) Acute pain of left shoulder (units unknown) (unknown) (unknown) (no date) (unknown) (unknown) Age/Sex: 67 / F Date of Service: (units unknown) (unknown) (unknown) (no date) (unknown) (unknown) Allergic react ion to grass pollen (units unknown) (unknown) (unknown) (no date) (unknown) (unknown) Allergic to cats (un its unknown) (unknown) (unknown) (no date) (unknown) (unknown) Allergies (units unknown) (unknown) (unknown) (no date) (unknown) (unknown) [place] [address] (units unknown) (unknown) (unknown) (no date) (unknown) (unknown) Anesthesia (units unknown) (unknown) (unknown) (no date) (unknown) (unknown) Angina pectoris (uni ts unknown) (unknown) (unknown) (no date) (unknown) (unknown) Ankle pain, ch ronic (2014) (units unknown) (unknown) (unknown) (no date) (unknown) (unknown) Ankle pain, chronic (units unknown) (unknown) (unknown) (no date) (unknown) (unknown) Anxiety (units unknown) (unknown) (unknown) (no date) (unknown) (unknown) Assessment + Plan (u nits unknown) (unknown) (unknown) (no date) (unknown) (unknown) Attending Dr: Laura LittleOElliott (units unknown) (unknown) (unknown) (no date) (unknown) (unknown) B12 (IM after failing high dose sublingual) for occipital neuralgia, as well as (units unknown) (unknown) (unknown) (no date) (unknown) (unknown) BP 134/80 (units unknown) (unknown) (unknown) (no date) (unknown) (unknown) Billing- OMT Therapy: OMT 9-10 Body Regions- 11923 (units unknown) (unknown) (unknown) (no date) (unknown) (unknown) Bipolar disorder (un its unknown) (unknown) (unknown) (no date) (unknown) (unknown) Blood Pressure Location Lt brachial (units unknown) (unknown) (unknown) (no date) (unknown) (unknown) Brain cancer (units unknown) (unknown) (unknown) (no date) (unknown) (unknown) Broke R foot, very painful, still not weight bearing. Seeing ortho and podiatry. (units unknown) (unknown) (unknown) (no date) (unknown) (unknown) Cervical somat ic dysfunction (units unknown) (unknown) (unknown) (no date) (unknown) (unknown) Cervical: C4 FRSL ? (units unknown) (unknown) (unknown) (no date) (unknown) (unknown) Chicken pox (units unknown) (unknown) (unknown) (no date) (unknown) (unknown) Chief Complaint (uni ts unknown) (unknown) (unknown) (no date) (unknown) (unknown) Chief Complain t: multiple pain complaints (units unknown) (unknown) (unknown) (no date) (unknown) (unknown) Child Age: 34 Hx of appendectomy (units unknown) (unknown) (unknown) (no date) (unknown) (unknown) Child Age: 37 Penicillin allergy (units unknown) (unknown) (unknown) (no date) (unknown) (unknown) Child Age: 46 Hay fever (units unknown) (unknown) (unknown) (no date) (unknown) (unknown) 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 (units unknown) (unknown) (unknown) (no date) (unknown) (unknown) Chronic left-s ided thoracic back pain (units unknown) (unknown) (unknown) (no date) (unknown) (unknown) 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 () (units unknown) (unknown) (unknown) (no date) (unknown) (unknown) Compression fr acture of body of thoracic vertebra () (units unknown) (unknown) (unknown) (no date) (unknown) (unknown) Cranial somati c dysfunction (units unknown) (unknown) (unknown) (no date) (unknown) (unknown) DAIRY Allergy (Intermediate, Uncoded 01/26/23 11:45) (units unknown) (unknown) (unknown) (no date) (unknown) (unknown) : 4 Acct:[id number] (units unknown) (unknown) (unknown) (no date) (unknown) (unknown) Depression (09/21/14) (units unknown) (unknown) (unknown) (no date) (unknown) (unknown) Depression (units unknown) (unknown) (unknown) (no date) (unknown) (unknown) Dept at . (units unknown) (unknown) (unknown) (no date) (unknown) (unknown) Details: (units unknown) (unknown) (unknown) (no date) (unknown) (unknown) Documented By: Laura Parikh D.O. 02/09/23 1050 (units unknown) (unknown) (unknown) (no date) (unknown) (unknown) Environmental allergies (units unknown) (unknown) (unknown) (no date) (unknown) (unknown) Esophageal stricture (units unknown) (unknown) (unknown) (no date) (unknown) (unknown) Esophagitis (units unknown) (unknown) (unknown) (no date) (unknown) (unknown) Exam Narrative (unit s unknown) (unknown) (unknown) (no date) (unknown) (unknown) Exam Narrative: (uni ts unknown) (unknown) (unknown) (no date) (unknown) (unknown) Exam (units unknown) (unknown) (unknown) (no date) (unknown) (unknown) Extr: R should er ROM intact, R with limited F to 115 deg (units unknown) (unknown) (unknown) (no date) (unknown) (unknown) Family History (Updated 06/08/18 @ 12:37 by Rabia Jacob) (units unknown) (unknown) (unknown) (no date) (unknown) (unknown) Family Practic e Office Visit (units unknown) (unknown) (unknown) (no date) (unknown) (unknown) Fibromyalgia (units unknown) (unknown) (unknown) (no date) (unknown) (unknown) [facility] (units unknown) (unknown) (unknown) (no date) (unknown) (unknown) Foot pain (2011) (un its unknown) (unknown) (unknown) (no date) (unknown) (unknown) Gastropathy (units unknown) (unknown) (unknown) (no date) (unknown) (unknown) General: pleas ant, cooperative, +central adiposity, sitting comfortably in no (units unknown) (unknown) (unknown) (no date) (unknown) (unknown) Gets relief with OMT (units unknown) (unknown) (unknown) (no date) (unknown) (unknown) Grandmother Di abetes mellitus (units unknown) (unknown) (unknown) (no date) (unknown) (unknown) HPI (units unknown) (unknown) (unknown) (no date) (unknown) (unknown) Hayfever (units unknown) (unknown) (unknown) (no date) (unknown) (unknown) Head: b/l OM r estr, SBS compr (units unknown) (unknown) (unknown) (no date) (unknown) (unknown) Heart disease (units unknown) (unknown) (unknown) (no date) (unknown) (unknown) Height 5 ft 3.5 in ( units unknown) (unknown) (unknown) (no date) (unknown) (unknown) Hemorrhoids (units unknown) (unknown) (unknown) (no date) (unknown) (unknown) Hiatal hernia (units unknown) (unknown) (unknown) (no date) (unknown) (unknown) High cholesterol (un its unknown) (unknown) (unknown) (no date) (unknown) (unknown) History of candice betes mellitus (units unknown) (unknown) (unknown) (no date) (unknown) (unknown) History of fundoplication (units unknown) (unknown) (unknown) (no date) (unknown) (unknown) History of rep air of hiatal hernia (11/2011) (units unknown) (unknown) (unknown) (no date) (unknown) (unknown) History of tonsillectomy (1971) (units unknown) (unknown) (unknown) (no date) (unknown) (unknown) Hives (units unknown) (unknown) (unknown) (no date) (unknown) (unknown) Hypertension (units unknown) (unknown) (unknown) (no date) (unknown) (unknown) Hypothyroidism (unit s unknown) (unknown) (unknown) (no date) (unknown) (unknown) IBS (irritable bowel syndrome) (units unknown) (unknown) (unknown) (no date) (unknown) (unknown) 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 unknown) (unknown) (unknown) (no date) (unknown) (unknown) Informed conse nt given: Yes (units unknown) (unknown) (unknown) (no date) (unknown) (unknown) Intake Note: (units unknown) (unknown) (unknown) (no date) (unknown) (unknown) Intake perform ed by: Lani Benavides (units unknown) (unknown) (unknown) (no date) (unknown) (unknown) Intake (units unknown) (unknown) (unknown) (no date) (unknown) (unknown) Intake- Kasie al Staff (units unknown) (unknown) (unknown) (no date) (unknown) (unknown) Irritable julien l syndrome type: with both diarrhea and constipation (units unknown) (unknown) (unknown) (no date) (unknown) (unknown) Last Menstural Cycle + Details (units unknown) (unknown) (unknown) (no date) (unknown) (unknown) Leg worse compensating for foot positions (units unknown) (unknown) (unknown) (no date) (unknown) (unknown) Liver cancer (units unknown) (unknown) (unknown) (no date) (unknown) (unknown) Loc: [facility] (units unknown) (unknown) (unknown) (no date) (unknown) (unknown) Lower extremit ies: R FH ant (units unknown) (unknown) (unknown) (no date) (unknown) (unknown) Lumbar facet arthropathy (2013) (units unknown) (unknown) (unknown) (no date) (unknown) (unknown) Lumbar region somatic dysfunction (units unknown) (unknown) (unknown) (no date) (unknown) (unknown) Lumbar: L1 FRSR (uni ts unknown) (unknown) (unknown) (no date) (unknown) (unknown) Lung cancer (units unknown) (unknown) (unknown) (no date) (unknown) (unknown) Managing IBS a nd pernicious anemia with supplementation and dietary (units unknown) (unknown) (unknown) (no date) (unknown) (unknown) Medical Histor y (Updated 02/09/23 @ 11:24 by Laura Parikh DO) (units unknown) (unknown) (unknown) (no date) (unknown) (unknown) Mother d Diabetes mellitus (units unknown) (unknown) (unknown) (no date) (unknown) (unknown) Neuro: alert a nd oriented to person and situation (units unknown) (unknown) (unknown) (no date) (unknown) (unknown) OMM Procedure Notes: (units unknown) (unknown) (unknown) (no date) (unknown) (unknown) OMT with GOT a nd PH and avoiding R distal LE. (units unknown) (unknown) (unknown) (no date) (unknown) (unknown) Obesity (units unknown) (unknown) (unknown) (no date) (unknown) (unknown) Office Procedures (u nits unknown) (unknown) (unknown) (no date) (unknown) (unknown) Osteoarthritis (2012) (units unknown) (unknown) (unknown) (no date) (unknown) (unknown) Osteopathic Structural Exam: (units unknown) (unknown) (unknown) (no date) (unknown) (unknown) Osteoporosis o f lumbar spine (units unknown) (unknown) (unknown) (no date) (unknown) (unknown) Osteoporosis (units unknown) (unknown) (unknown) (no date) (unknown) (unknown) Other Menstrua l Period: Postmenopausal (units unknown) (unknown) (unknown) (no date) (unknown) (unknown) Oxygen Deliver y Method room air (units unknown) (unknown) (unknown) (no date) (unknown) (unknown) PFSH (units unknown) (unknown) (unknown) (no date) (unknown) (unknown) PH, GOT, MFR, BLT, cranial (units unknown) (unknown) (unknown) (no date) (unknown) (unknown) PTSD (post-tra umatic stress disorder) (units unknown) (unknown) (unknown) (no date) (unknown) (unknown) Patient: VioletteNiviaWhitley Latasha MR#: M (units unknown) (unknown) (unknown) (no date) (unknown) (unknown) Pelvic somatic dysfunction (units unknown) (unknown) (unknown) (no date) (unknown) (unknown) Pelvis: L ant (units unknown) (unknown) (unknown) (no date) (unknown) (unknown) Pernicious anemia (u nits unknown) (unknown) (unknown) (no date) (unknown) (unknown) Personality disorder (units unknown) (unknown) (unknown) (no date) (unknown) (unknown) Plan (units unknown) (unknown) (unknown) (no date) (unknown) (unknown) Position Sitting (un its unknown) (unknown) (unknown) (no date) (unknown) (unknown) Psych: well ke mpt, speech and movement normal, normal affect (units unknown) (unknown) (unknown) (no date) (unknown) (unknown) Pulse 101 H (units unknown) (unknown) (unknown) (no date) (unknown) (unknown) Pulse Oximetry (%) 98 (units unknown) (unknown) (unknown) (no date) (unknown) (unknown) Pulse Source Monitor (units unknown) (unknown) (unknown) (no date) (unknown) (unknown) Qualified Code (s): K58.2 - Mixed irritable bowel syndrome (units unknown) (unknown) (unknown) (no date) (unknown) (unknown) Qualifiers: (units unknown) (unknown) (unknown) (no date) (unknown) (unknown) RLS (restless legs syndrome) (units unknown) (unknown) (unknown) (no date) (unknown) (unknown) Reason For Visit (un its unknown) (unknown) (unknown) (no date) (unknown) (unknown) Resp: normal e ffort, able to speak in complete sentences (units unknown) (unknown) (unknown) (no date) (unknown) (unknown) Ribcage: R2-3 post, b/l 12 exh (units unknown) (unknown) (unknown) (no date) (unknown) (unknown) Right shoulder pain (units unknown) (unknown) (unknown) (no date) (unknown) (unknown) SWELLING (units unknown) (unknown) (unknown) (no date) (unknown) (unknown) Sacral region somatic dysfunction (units unknown) (unknown) (unknown) (no date) (unknown) (unknown) Sacroiliitis (2012) (units unknown) (unknown) (unknown) (no date) (unknown) (unknown) Sacrum: b/l F, L>R SI restr (units unknown) (unknown) (unknown) (no date) (unknown) (unknown) Seborrheic keratosis (units unknown) (unknown) (unknown) (no date) (unknown) (unknown) Seeing podiatr y and ortho, still not able to bear weight. Significant energy (units unknown) (unknown) (unknown) (no date) (unknown) (unknown) Shoulders and neck worse having to use wheel chair (units unknown) (unknown) (unknown) (no date) (unknown) (unknown) Signed By: <Electronically signed by Laura Parikh D.O.> (units unknown) (unknown) (unknown) (no date) (unknown) (unknown) Signed (units unknown) (unknown) (unknown) (no date) (unknown) (unknown) Sinusitis loca tion: maxillary Qualified Code(s): J32.0 - Chronic (units unknown) (unknown) (unknown) (no date) (unknown) (unknown) Sister d Diabetes mellitus (units unknown) (unknown) (unknown) (no date) (unknown) (unknown) Smoking Status : Former smoker (units unknown) (unknown) (unknown) (no date) (unknown) (unknown) Status post colonoscopy (09/2019) (units unknown) (unknown) (unknown) (no date) (unknown) (unknown) Status post endoscopy (12/2019) (units unknown) (unknown) (unknown) (no date) (unknown) (unknown) Status post reduction mammoplasty (07/2010) (units unknown) (unknown) (unknown) (no date) (unknown) (unknown) Status: Acute (units unknown) (unknown) (unknown) (no date) (unknown) (unknown) Status: Chronic (uni ts unknown) (unknown) (unknown) (no date) (unknown) (unknown) Still unable t o bear weight- seeing ortho later this week (units unknown) (unknown) (unknown) (no date) (unknown) (unknown) Stroke (units unknown) (unknown) (unknown) (no date) (unknown) (unknown) Substance abuse (uni ts unknown) (unknown) (unknown) (no date) (unknown) (unknown) Surgical Histo ry (Updated 01/18/20 @ 15:38 by Summer Price DO) (units unknown) (unknown) (unknown) (no date) (unknown) (unknown) Temp 96.9 F L (units unknown) (unknown) (unknown) (no date) (unknown) (unknown) Temp Source Te mporal Artery Scan (units unknown) (unknown) (unknown) (no date) (unknown) (unknown) This note may have been all or partially generated using voice recognition (units unknown) (unknown) (unknown) (no date) (unknown) (unknown) Thoracic regio n somatic dysfunction (units unknown) (unknown) (unknown) (no date) (unknown) (unknown) 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, T7 FRSR (units unknown) (unknown) (unknown) (no date) (unknown) (unknown) Time Coding Mi nutes Spent: (must be on same date of service/appointment) (units unknown) (unknown) (unknown) (no date) (unknown) (unknown) Time Spent (units unknown) (unknown) (unknown) (no date) (unknown) (unknown) Tinnitus (units unknown) (unknown) (unknown) (no date) (unknown) (unknown) Tobacco + Subs tance Use (units unknown) (unknown) (unknown) (no date) (unknown) (unknown) Tobacco Status (unit s unknown) (unknown) (unknown) (no date) (unknown) (unknown) Total visit ti me apart from OMT 31 minutes today, including 21 minutes face to (units unknown) (unknown) (unknown) (no date) (unknown) (unknown) Tubular adenom a of colon (12/2014) (units unknown) (unknown) (unknown) (no date) (unknown) (unknown) Upper extremit ies: b/l scapulothoracic restr and levator scap htn (units unknown) (unknown) (unknown) (no date) (unknown) (unknown) Visit Reasons: OMT 04 (units unknown) (unknown) (unknown) (no date) (unknown) (unknown) Vitals (units unknown) (unknown) (unknown) (no date) (unknown) (unknown) Albert's (units unknown) (unknown) (unknown) (no date) (unknown) (unknown) Will consider sterile silver nasal spray for chronic sinusitis. (units unknown) (unknown) (unknown) (no date) (unknown) (unknown) _ (units unknown) (unknown) (unknown) (no date) (unknown) (unknown) (units unknown) (unknown) (unknown) (no date) (unknown) (unknown) acute distress , has crutch for ambulation (units unknown) (unknown) (unknown) (no date) (unknown) (unknown) albuterol [ALBUTEROL] Allergy (Unknown, Verified 01/26/23 11:45) (units unknown) (unknown) (unknown) (no date) (unknown) (unknown) bladder pain (units unknown) (unknown) (unknown) (no date) (unknown) (unknown) congestion and stomach problems (units unknown) (unknown) (unknown) (no date) (unknown) (unknown) coordinating care. ( units unknown) (unknown) (unknown) (no date) (unknown) (unknown) depletion as w ell as upper back, upper limb, neck pain re compensating for (units unknown) (unknown) (unknown) (no date) (unknown) (unknown) dexamethasone Adverse Reaction (Severe, Verified 01/26/23 11:45) (units unknown) (unknown) (unknown) (no date) (unknown) (unknown) did comprehens cassy stool analysis through [facility] [employer] too (units unknown) (unknown) (unknown) (no date) (unknown) (unknown) did have SIBO breath through [facility] but unable to get results because was Dr (units unknown) (unknown) (unknown) (no date) (unknown) (unknown) extraarticular R calcaneal fracture on XR and CT, plan on limit weight bearing, (units unknown) (unknown) (unknown) (no date) (unknown) (unknown) face on histor y, exam, and counseling, and 10 minutes reviewing, charting, and (units unknown) (unknown) (unknown) (no date) (unknown) (unknown) folic acid (units unknown) (unknown) (unknown) (no date) (unknown) (unknown) gastritis flares (un its unknown) (unknown) (unknown) (no date) (unknown) (unknown) gluten [GLUTEN ] Allergy (Unknown, Verified 01/26/23 11:45) (units unknown) (unknown) (unknown) (no date) (unknown) (unknown) gluten free vegan (u nits unknown) (unknown) (unknown) (no date) (unknown) (unknown) grass pollen A llergy (Severe, Verified 01/26/23 11:45) (units unknown) (unknown) (unknown) (no date) (unknown) (unknown) have occurred. If there are any questions, please contact the Medical Records (units unknown) (unknown) (unknown) (no date) (unknown) (unknown) hydromorphone [HYDROMORPHONE] Allergy (Mild, Verified 01/26/23 11:45) (units unknown) (unknown) (unknown) (no date) (unknown) (unknown) iodine and osmany enium for thyroid, rather than taking thyroid (units unknown) (unknown) (unknown) (no date) (unknown) (unknown) limited mobility. (u nits unknown) (unknown) (unknown) (no date) (unknown) (unknown) lithium [LITHI UM] Allergy (Unknown, Verified 01/26/23 11:45) (units unknown) (unknown) (unknown) (no date) (unknown) (unknown) magnesium (units unknown) (unknown) (unknown) (no date) (unknown) (unknown) maxillary sinusitis (units unknown) (unknown) (unknown) (no date) (unknown) (unknown) may occur. Occasional wrong-word or 'sound-alike' substitutions may have (units unknown) (unknown) (unknown) (no date) (unknown) (unknown) modifications. (unit s unknown) (unknown) (unknown) (no date) (unknown) (unknown) occurred due t o the inherent limitations of voice recognition software. Please (units unknown) (unknown) (unknown) (no date) (unknown) (unknown) polyneuropathies (un its unknown) (unknown) (unknown) (no date) (unknown) (unknown) read the note carefully and recognize, using context, where these substitutions (units unknown) (unknown) (unknown) (no date) (unknown) (unknown) mily stover, recheck XR 1m. (units unknown) (unknown) (unknown) (no date) (unknown) (unknown) software. Alth ough every effort is made to edit content, hand cell tuber errors (units unknown) (unknown) (unknown) (no date) (unknown) (unknown) tachycardia (units unknown) (unknown) (unknown) (no date) (unknown) (unknown) takes: (units unknown) (unknown) (unknown) (no date) (unknown) (unknown) vitamin C / ir on 125mg plant based (units unknown) (unknown) (unknown) (no date) (unknown) (unknown) vitamin D / K2 91136/100 (units unknown) (unknown) (unknown) (no date) (unknown) (unknown) wants ongoing B12 and needles, hoping to get a formulation without additive (units unknown) (unknown) Result panel 47 (unknown) (no date) (unknown) (unknown) (no value) (units unknown) (unknown) (unknown) (no date) (unknown) (unknown) [id number] (units unknown) (unknown) (unknown) (no date) (unknown) (unknown) 03/03/23 (units unknown) (unknown) (unknown) (no date) (unknown) (unknown) 11:03 (units unknown) (unknown) (unknown) (no date) (unknown) (unknown) 67 yo female presents today for OMT (units unknown) (unknown) (unknown) (no date) (unknown) (unknown) Accompanied by : (units unknown) (unknown) (unknown) (no date) (unknown) (unknown) Acute pain of left shoulder (units unknown) (unknown) (unknown) (no date) (unknown) (unknown) Age/Sex: 67 / F Date of Service: (units unknown) (unknown) (unknown) (no date) (unknown) (unknown) Allergic react ion to grass pollen (units unknown) (unknown) (unknown) (no date) (unknown) (unknown) Allergic to cats (un its unknown) (unknown) (unknown) (no date) (unknown) (unknown) Allergies (units unknown) (unknown) (unknown) (no date) (unknown) (unknown) AMIE Allen [id number] (units unknown) (unknown) (unknown) (no date) (unknown) (unknown) Anesthesia (units unknown) (unknown) (unknown) (no date) (unknown) (unknown) Angina pectoris (uni ts unknown) (unknown) (unknown) (no date) (unknown) (unknown) Ankle pain, ch ronic (2014) (units unknown) (unknown) (unknown) (no date) (unknown) (unknown) Ankle pain, chronic (units unknown) (unknown) (unknown) (no date) (unknown) (unknown) Anxiety (units unknown) (unknown) (unknown) (no date) (unknown) (unknown) Attending Dr: Laura Parikh D.O. (units unknown) (unknown) (unknown) (no date) (unknown) (unknown) BP 136/84 (units unknown) (unknown) (unknown) (no date) (unknown) (unknown) Bipolar disorder (un its unknown) (unknown) (unknown) (no date) (unknown) (unknown) Blood Pressure Location Lt brachial (units unknown) (unknown) (unknown) (no date) (unknown) (unknown) Brain cancer (units unknown) (unknown) (unknown) (no date) (unknown) (unknown) Cervical somat ic dysfunction (units unknown) (unknown) (unknown) (no date) (unknown) (unknown) Chicken pox (units unknown) (unknown) (unknown) (no date) (unknown) (unknown) Child Age: 34 Hx of appendectomy (units unknown) (unknown) (unknown) (no date) (unknown) (unknown) Child Age: 37 Penicillin allergy (units unknown) (unknown) (unknown) (no date) (unknown) (unknown) Child Age: 46 Hay fever (units unknown) (unknown) (unknown) (no date) (unknown) (unknown) 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 (units unknown) (unknown) (unknown) (no date) (unknown) (unknown) Chronic left-s ided thoracic back pain (units unknown) (unknown) (unknown) (no date) (unknown) (unknown) Compound heterozygous MTHFR mutation [id number] () (units unknown) (unknown) (unknown) (no date) (unknown) (unknown) Compression fr acture of body of thoracic vertebra () (units unknown) (unknown) (unknown) (no date) (unknown) (unknown) Cranial somati c dysfunction (units unknown) (unknown) (unknown) (no date) (unknown) (unknown) DAIRY Allergy (Intermediate, Uncoded 01/26/23 11:45) (units unknown) (unknown) (unknown) (no date) (unknown) (unknown) : 4 Acct:[id number] (units unknown) (unknown) (unknown) (no date) (unknown) (unknown) Depression (09/21/14) (units unknown) (unknown) (unknown) (no date) (unknown) (unknown) Depression (units unknown) (unknown) (unknown) (no date) (unknown) (unknown) Dept at . (units unknown) (unknown) (unknown) (no date) (unknown) (unknown) Documented By: Laura Parikh D.O. 03/03/23 1102 (units unknown) (unknown) (unknown) (no date) (unknown) (unknown) Draft (units unknown) (unknown) (unknown) (no date) (unknown) (unknown) Environmental allergies (units unknown) (unknown) (unknown) (no date) (unknown) (unknown) Esophageal stricture (units unknown) (unknown) (unknown) (no date) (unknown) (unknown) Esophagitis (units unknown) (unknown) (unknown) (no date) (unknown) (unknown) Family History (Updated 06/08/18 @ 12:37 by Rabia Jacob) (units unknown) (unknown) (unknown) (no date) (unknown) (unknown) Family Practic e Office Visit (units unknown) (unknown) (unknown) (no date) (unknown) (unknown) Fibromyalgia (units unknown) (unknown) (unknown) (no date) (unknown) (unknown) [facility] (units unknown) (unknown) (unknown) (no date) (unknown) (unknown) Foot pain (2011) (un its unknown) (unknown) (unknown) (no date) (unknown) (unknown) Gastropathy (units unknown) (unknown) (unknown) (no date) (unknown) (unknown) Grandmother Di abetes mellitus (units unknown) (unknown) (unknown) (no date) (unknown) (unknown) Hayfever (units unknown) (unknown) (unknown) (no date) (unknown) (unknown) Heart disease (units unknown) (unknown) (unknown) (no date) (unknown) (unknown) Height 5 ft 3.5 in ( units unknown) (unknown) (unknown) (no date) (unknown) (unknown) Hemorrhoids (units unknown) (unknown) (unknown) (no date) (unknown) (unknown) Hiatal hernia (units unknown) (unknown) (unknown) (no date) (unknown) (unknown) High cholesterol (un its unknown) (unknown) (unknown) (no date) (unknown) (unknown) History of candice betes mellitus (units unknown) (unknown) (unknown) (no date) (unknown) (unknown) History of fundoplication (units unknown) (unknown) (unknown) (no date) (unknown) (unknown) History of rep air of hiatal hernia (11/2011) (units unknown) (unknown) (unknown) (no date) (unknown) (unknown) History of tonsillectomy (1971) (units unknown) (unknown) (unknown) (no date) (unknown) (unknown) Hives (units unknown) (unknown) (unknown) (no date) (unknown) (unknown) Hypertension (units unknown) (unknown) (unknown) (no date) (unknown) (unknown) Hypothyroidism (unit s unknown) (unknown) (unknown) (no date) (unknown) (unknown) IBS (irritable bowel syndrome) (units unknown) (unknown) (unknown) (no date) (unknown) (unknown) 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 unknown) (unknown) (unknown) (no date) (unknown) (unknown) Intake Note: (units unknown) (unknown) (unknown) (no date) (unknown) (unknown) Intake perform ed by: Lani Benavides (units unknown) (unknown) (unknown) (no date) (unknown) (unknown) Intake (units unknown) (unknown) (unknown) (no date) (unknown) (unknown) Intake- Kas[facility] Staff (units unknown) (unknown) (unknown) (no date) (unknown) (unknown) Last Menstural Cycle + Details (units unknown) (unknown) (unknown) (no date) (unknown) (unknown) Liver cancer (units unknown) (unknown) (unknown) (no date) (unknown) (unknown) Loc: [facility] (units unknown) (unknown) (unknown) (no date) (unknown) (unknown) Lumbar facet arthropathy (2013) (units unknown) (unknown) (unknown) (no date) (unknown) (unknown) Lumbar region somatic dysfunction (units unknown) (unknown) (unknown) (no date) (unknown) (unknown) Lung cancer (units unknown) (unknown) (unknown) (no date) (unknown) (unknown) Medical Histor y (Updated 02/09/23 @ 11:24 by Laura Parikh DO) (units unknown) (unknown) (unknown) (no date) (unknown) (unknown) Mother d Diabetes mellitus (units unknown) (unknown) (unknown) (no date) (unknown) (unknown) Obesity (units unknown) (unknown) (unknown) (no date) (unknown) (unknown) Osteoarthritis (2011) (units unknown) (unknown) (unknown) (no date) (unknown) (unknown) Osteoporosis o f lumbar spine (units unknown) (unknown) (unknown) (no date) (unknown) (unknown) Osteoporosis (units unknown) (unknown) (unknown) (no date) (unknown) (unknown) Other Menstrua l Period: Postmenopausal (units unknown) (unknown) (unknown) (no date) (unknown) (unknown) Oxygen Deliver y Method room air (units unknown) (unknown) (unknown) (no date) (unknown) (unknown) PFSH (units unknown) (unknown) (unknown) (no date) (unknown) (unknown) PTSD (post-tra umatic stress disorder) (units unknown) (unknown) (unknown) (no date) (unknown) (unknown) Patient: Nivia Oakesraji Pagan MR#: M (units unknown) (unknown) (unknown) (no date) (unknown) (unknown) Pelvic somatic dysfunction (units unknown) (unknown) (unknown) (no date) (unknown) (unknown) Pernicious anemia (u nits unknown) (unknown) (unknown) (no date) (unknown) (unknown) Personality disorder (units unknown) (unknown) (unknown) (no date) (unknown) (unknown) Position Sitting (un its unknown) (unknown) (unknown) (no date) (unknown) (unknown) Pulse 90 (units unknown) (unknown) (unknown) (no date) (unknown) (unknown) Pulse Oximetry (%) 96 (units unknown) (unknown) (unknown) (no date) (unknown) (unknown) Pulse Source Monitor (units unknown) (unknown) (unknown) (no date) (unknown) (unknown) RLS (restless legs syndrome) (units unknown) (unknown) (unknown) (no date) (unknown) (unknown) Reason For Visit (un its unknown) (unknown) (unknown) (no date) (unknown) (unknown) Right shoulder pain (units unknown) (unknown) (unknown) (no date) (unknown) (unknown) SWELLING (units unknown) (unknown) (unknown) (no date) (unknown) (unknown) Sacral region somatic dysfunction (units unknown) (unknown) (unknown) (no date) (unknown) (unknown) Sacroiliitis (2012) (units unknown) (unknown) (unknown) (no date) (unknown) (unknown) Seborrheic keratosis (units unknown) (unknown) (unknown) (no date) (unknown) (unknown) Signed By: (units unknown) (unknown) (unknown) (no date) (unknown) (unknown) Sister d Diabetes mellitus (units unknown) (unknown) (unknown) (no date) (unknown) (unknown) Smoking Status : Former smoker (units unknown) (unknown) (unknown) (no date) (unknown) (unknown) Status post colonoscopy (09/2019) (units unknown) (unknown) (unknown) (no date) (unknown) (unknown) Status post endoscopy (12/2019) (units unknown) (unknown) (unknown) (no date) (unknown) (unknown) Status post reduction mammoplasty (07/2010) (units unknown) (unknown) (unknown) (no date) (unknown) (unknown) Stroke (units unknown) (unknown) (unknown) (no date) (unknown) (unknown) Substance abuse (uni ts unknown) (unknown) (unknown) (no date) (unknown) (unknown) Surgical Histo ry (Updated 01/18/20 @ 15:38 by Summer Price DO) (units unknown) (unknown) (unknown) (no date) (unknown) (unknown) Temp 96.9 F L (units unknown) (unknown) (unknown) (no date) (unknown) (unknown) Temp Source Te mporal Artery Scan (units unknown) (unknown) (unknown) (no date) (unknown) (unknown) This note may have been all or partially generated using voice recognition (units unknown) (unknown) (unknown) (no date) (unknown) (unknown) Thoracic regio n somatic dysfunction (units unknown) (unknown) (unknown) (no date) (unknown) (unknown) Tinnitus (units unknown) (unknown) (unknown) (no date) (unknown) (unknown) Tobacco + Subs tance Use (units unknown) (unknown) (unknown) (no date) (unknown) (unknown) Tobacco Status (unit s unknown) (unknown) (unknown) (no date) (unknown) (unknown) Tubular adenom a of colon (12/2014) (units unknown) (unknown) (unknown) (no date) (unknown) (unknown) Visit Reasons: OMT 04 (units unknown) (unknown) (unknown) (no date) (unknown) (unknown) Vitals (units unknown) (unknown) (unknown) (no date) (unknown) (unknown) albuterol [ALBUTEROL] Allergy (Unknown, Verified 01/26/23 11:45) (units unknown) (unknown) (unknown) (no date) (unknown) (unknown) bladder pain (units unknown) (unknown) (unknown) (no date) (unknown) (unknown) congestion and stomach problems (units unknown) (unknown) (unknown) (no date) (unknown) (unknown) dexamethasone Adverse Reaction (Severe, Verified 01/26/23 11:45) (units unknown) (unknown) (unknown) (no date) (unknown) (unknown) gluten [GLUTEN ] Allergy (Unknown, Verified 01/26/23 11:45) (units unknown) (unknown) (unknown) (no date) (unknown) (unknown) grass pollen A llergy (Severe, Verified 01/26/23 11:45) (units unknown) (unknown) (unknown) (no date) (unknown) (unknown) have occurred. If there are any questions, please contact the Medical Records (units unknown) (unknown) (unknown) (no date) (unknown) (unknown) hydromorphone [HYDROMORPHONE] Allergy (Mild, Verified 01/26/23 11:45) (units unknown) (unknown) (unknown) (no date) (unknown) (unknown) lithium [LITHI UM] Allergy (Unknown, Verified 01/26/23 11:45) (units unknown) (unknown) (unknown) (no date) (unknown) (unknown) may occur. Occasional wrong-word or 'sound-alike' substitutions may have (units unknown) (unknown) (unknown) (no date) (unknown) (unknown) occurred due t o the inherent limitations of voice recognition software. Please (units unknown) (unknown) (unknown) (no date) (unknown) (unknown) read the note carefully and recognize, using context, where these substitutions (units unknown) (unknown) (unknown) (no date) (unknown) (unknown) software. Alth ough every effort is made to edit content, hand cell tuber errors (units unknown) (unknown) (unknown) (no date) (unknown) (unknown) tachycardia (units unknown) (unknown) Result panel 48 (unknown) (no date) (unknown) (unknown) (no value) (units unknown) (unknown) (unknown) (no date) (unknown) (unknown) [id number] (units unknown) (unknown) (unknown) (no date) (unknown) (unknown) 03/03/23 (units unknown) (unknown) (unknown) (no date) (unknown) (unknown) 11:03 (units unknown) (unknown) (unknown) (no date) (unknown) (unknown) 01/01/23 fall f rom step stool, saw ortho ([place]), mildly displaced (units unknown) (unknown) (unknown) (no date) (unknown) (unknown) 67 yo female presents today for OMT (units unknown) (unknown) (unknown) (no date) (unknown) (unknown) 7th day Confucianism (u nits unknown) (unknown) (unknown) (no date) (unknown) (unknown) Accompanied by : (units unknown) (unknown) (unknown) (no date) (unknown) (unknown) Acute pain of left shoulder (units unknown) (unknown) (unknown) (no date) (unknown) (unknown) Add'l Complaint: (un its unknown) (unknown) (unknown) (no date) (unknown) (unknown) Age/Sex: 67 / F Date of Service: (units unknown) (unknown) (unknown) (no date) (unknown) (unknown) Allergic react ion to grass pollen (units unknown) (unknown) (unknown) (no date) (unknown) (unknown) Allergic to cats (un its unknown) (unknown) (unknown) (no date) (unknown) (unknown) Allergies (units unknown) (unknown) (unknown) (no date) (unknown) (unknown) [place] [id number] (units unknown) (unknown) (unknown) (no date) (unknown) (unknown) Anesthesia (units unknown) (unknown) (unknown) (no date) (unknown) (unknown) Angina pectoris (uni ts unknown) (unknown) (unknown) (no date) (unknown) (unknown) Ankle pain, ch ronic (2014) (units unknown) (unknown) (unknown) (no date) (unknown) (unknown) Ankle pain, chronic (units unknown) (unknown) (unknown) (no date) (unknown) (unknown) Anxiety (units unknown) (unknown) (unknown) (no date) (unknown) (unknown) Attending Dr: Laura Parikh D.O. (units unknown) (unknown) (unknown) (no date) (unknown) (unknown) B12 (IM after failing high dose sublingual) for occipital neuralgia, as well as (units unknown) (unknown) (unknown) (no date) (unknown) (unknown) BP 136/84 (units unknown) (unknown) (unknown) (no date) (unknown) (unknown) Bipolar disorder (un its unknown) (unknown) (unknown) (no date) (unknown) (unknown) Blood Pressure Location Lt brachial (units unknown) (unknown) (unknown) (no date) (unknown) (unknown) Brain cancer (units unknown) (unknown) (unknown) (no date) (unknown) (unknown) Broke R foot, very painful, still not weight bearing. Seeing ortho and podiatry. (units unknown) (unknown) (unknown) (no date) (unknown) (unknown) Cervical somat ic dysfunction (units unknown) (unknown) (unknown) (no date) (unknown) (unknown) Chicken pox (units unknown) (unknown) (unknown) (no date) (unknown) (unknown) Chief Complaint (uni ts unknown) (unknown) (unknown) (no date) (unknown) (unknown) Chief Complain t: multiple pain complaints (units unknown) (unknown) (unknown) (no date) (unknown) (unknown) Child Age: 34 Hx of appendectomy (units unknown) (unknown) (unknown) (no date) (unknown) (unknown) Child Age: 37 Penicillin allergy (units unknown) (unknown) (unknown) (no date) (unknown) (unknown) Child Age: 46 Hay fever (units unknown) (unknown) (unknown) (no date) (unknown) (unknown) 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 (units unknown) (unknown) (unknown) (no date) (unknown) (unknown) Chronic left-s ided thoracic back pain (units unknown) (unknown) (unknown) (no date) (unknown) (unknown) 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) (units unknown) (unknown) (unknown) (no date) (unknown) (unknown) Compression fr acture of body of thoracic vertebra () (units unknown) (unknown) (unknown) (no date) (unknown) (unknown) Cranial somati c dysfunction (units unknown) (unknown) (unknown) (no date) (unknown) (unknown) DAIRY Allergy (Intermediate, Uncoded 01/26/23 11:45) (units unknown) (unknown) (unknown) (no date) (unknown) (unknown) : 4 Acct:[id number] (units unknown) (unknown) (unknown) (no date) (unknown) (unknown) Depression (09/21/14) (units unknown) (unknown) (unknown) (no date) (unknown) (unknown) Depression (units unknown) (unknown) (unknown) (no date) (unknown) (unknown) Dept at . (units unknown) (unknown) (unknown) (no date) (unknown) (unknown) Details: (units unknown) (unknown) (unknown) (no date) (unknown) (unknown) Documented By: Laura Parikh D.O. 03/03/23 1102 (units unknown) (unknown) (unknown) (no date) (unknown) (unknown) Draft (units unknown) (unknown) (unknown) (no date) (unknown) (unknown) Environmental allergies (units unknown) (unknown) (unknown) (no date) (unknown) (unknown) Esophageal stricture (units unknown) (unknown) (unknown) (no date) (unknown) (unknown) Esophagitis (units unknown) (unknown) (unknown) (no date) (unknown) (unknown) Family History (Updated 06/08/18 @ 12:37 by Rabia Jacob) (units unknown) (unknown) (unknown) (no date) (unknown) (unknown) Family Practic e Office Visit (units unknown) (unknown) (unknown) (no date) (unknown) (unknown) Fibromyalgia (units unknown) (unknown) (unknown) (no date) (unknown) (unknown) [facility] (units unknown) (unknown) (unknown) (no date) (unknown) (unknown) Foot pain (2011) (un its unknown) (unknown) (unknown) (no date) (unknown) (unknown) Gastropathy (units unknown) (unknown) (unknown) (no date) (unknown) (unknown) Gets relief with OMT (units unknown) (unknown) (unknown) (no date) (unknown) (unknown) Grandmother Di abetes mellitus (units unknown) (unknown) (unknown) (no date) (unknown) (unknown) HPI (units unknown) (unknown) (unknown) (no date) (unknown) (unknown) Hayfever (units unknown) (unknown) (unknown) (no date) (unknown) (unknown) Heart disease (units unknown) (unknown) (unknown) (no date) (unknown) (unknown) Height 5 ft 3.5 in ( units unknown) (unknown) (unknown) (no date) (unknown) (unknown) Hemorrhoids (units unknown) (unknown) (unknown) (no date) (unknown) (unknown) Hiatal hernia (units unknown) (unknown) (unknown) (no date) (unknown) (unknown) High cholesterol (un its unknown) (unknown) (unknown) (no date) (unknown) (unknown) History of candice betes mellitus (units unknown) (unknown) (unknown) (no date) (unknown) (unknown) History of fundoplication (units unknown) (unknown) (unknown) (no date) (unknown) (unknown) History of rep air of hiatal hernia (11/2011) (units unknown) (unknown) (unknown) (no date) (unknown) (unknown) History of tonsillectomy (1971) (units unknown) (unknown) (unknown) (no date) (unknown) (unknown) Hives (units unknown) (unknown) (unknown) (no date) (unknown) (unknown) Hypertension (units unknown) (unknown) (unknown) (no date) (unknown) (unknown) Hypothyroidism (unit s unknown) (unknown) (unknown) (no date) (unknown) (unknown) IBS (irritable bowel syndrome) (units unknown) (unknown) (unknown) (no date) (unknown) (unknown) 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 unknown) (unknown) (unknown) (no date) (unknown) (unknown) Intake Note: (units unknown) (unknown) (unknown) (no date) (unknown) (unknown) Intake perform ed by: Lani Benavides (units unknown) (unknown) (unknown) (no date) (unknown) (unknown) Intake (units unknown) (unknown) (unknown) (no date) (unknown) (unknown) Intake- Kasie al Staff (units unknown) (unknown) (unknown) (no date) (unknown) (unknown) Last Menstural Cycle + Details (units unknown) (unknown) (unknown) (no date) (unknown) (unknown) Leg worse compensating for foot positions (units unknown) (unknown) (unknown) (no date) (unknown) (unknown) Liver cancer (units unknown) (unknown) (unknown) (no date) (unknown) (unknown) Loc: [facility] (units unknown) (unknown) (unknown) (no date) (unknown) (unknown) Lumbar facet arthropathy (2013) (units unknown) (unknown) (unknown) (no date) (unknown) (unknown) Lumbar region somatic dysfunction (units unknown) (unknown) (unknown) (no date) (unknown) (unknown) Lung cancer (units unknown) (unknown) (unknown) (no date) (unknown) (unknown) Medical Histor y (Updated 02/09/23 @ 11:24 by Laura Parikh DO) (units unknown) (unknown) (unknown) (no date) (unknown) (unknown) Mother d Diabetes mellitus (units unknown) (unknown) (unknown) (no date) (unknown) (unknown) Obesity (units unknown) (unknown) (unknown) (no date) (unknown) (unknown) Osteoarthritis (2012) (units unknown) (unknown) (unknown) (no date) (unknown) (unknown) Osteoporosis o f lumbar spine (units unknown) (unknown) (unknown) (no date) (unknown) (unknown) Osteoporosis (units unknown) (unknown) (unknown) (no date) (unknown) (unknown) Other Menstrua l Period: Postmenopausal (units unknown) (unknown) (unknown) (no date) (unknown) (unknown) Oxygen Deliver y Method room air (units unknown) (unknown) (unknown) (no date) (unknown) (unknown) PFSH (units unknown) (unknown) (unknown) (no date) (unknown) (unknown) PTSD (post-tra umatic stress disorder) (units unknown) (unknown) (unknown) (no date) (unknown) (unknown) Patient: VioletteWhitley MR#: M (units unknown) (unknown) (unknown) (no date) (unknown) (unknown) Pelvic somatic dysfunction (units unknown) (unknown) (unknown) (no date) (unknown) (unknown) Pernicious anemia (u nits unknown) (unknown) (unknown) (no date) (unknown) (unknown) Personality disorder (units unknown) (unknown) (unknown) (no date) (unknown) (unknown) Position Sitting (un its unknown) (unknown) (unknown) (no date) (unknown) (unknown) Pulse 90 (units unknown) (unknown) (unknown) (no date) (unknown) (unknown) Pulse Oximetry (%) 96 (units unknown) (unknown) (unknown) (no date) (unknown) (unknown) Pulse Source Monitor (units unknown) (unknown) (unknown) (no date) (unknown) (unknown) R great toe pain (un its unknown) (unknown) (unknown) (no date) (unknown) (unknown) RLS (restless legs syndrome) (units unknown) (unknown) (unknown) (no date) (unknown) (unknown) Reason For Visit (un its unknown) (unknown) (unknown) (no date) (unknown) (unknown) Right shoulder pain (units unknown) (unknown) (unknown) (no date) (unknown) (unknown) SWELLING (units unknown) (unknown) (unknown) (no date) (unknown) (unknown) Sacral region somatic dysfunction (units unknown) (unknown) (unknown) (no date) (unknown) (unknown) Sacroiliitis (2012) (units unknown) (unknown) (unknown) (no date) (unknown) (unknown) Seborrheic keratosis (units unknown) (unknown) (unknown) (no date) (unknown) (unknown) Shoulders and neck worse having to use wheel chair (units unknown) (unknown) (unknown) (no date) (unknown) (unknown) Signed By: (units unknown) (unknown) (unknown) (no date) (unknown) (unknown) Sister d Diabetes mellitus (units unknown) (unknown) (unknown) (no date) (unknown) (unknown) Smoking Status : Former smoker (units unknown) (unknown) (unknown) (no date) (unknown) (unknown) Status post colonoscopy (09/2019) (units unknown) (unknown) (unknown) (no date) (unknown) (unknown) Status post endoscopy (12/2019) (units unknown) (unknown) (unknown) (no date) (unknown) (unknown) Status post reduction mammoplasty (07/2010) (units unknown) (unknown) (unknown) (no date) (unknown) (unknown) Still unable t o bear weight but touching down for balance - seeing ortho 2 more (units unknown) (unknown) (unknown) (no date) (unknown) (unknown) Stroke (units unknown) (unknown) (unknown) (no date) (unknown) (unknown) Substance abuse (uni ts unknown) (unknown) (unknown) (no date) (unknown) (unknown) Surgical Histo ry (Updated 01/18/20 @ 15:38 by Summer Price DO) (units unknown) (unknown) (unknown) (no date) (unknown) (unknown) Temp 96.9 F L (units unknown) (unknown) (unknown) (no date) (unknown) (unknown) Temp Source Te mporal Artery Scan (units unknown) (unknown) (unknown) (no date) (unknown) (unknown) This note may have been all or partially generated using voice recognition (units unknown) (unknown) (unknown) (no date) (unknown) (unknown) Thoracic regio n somatic dysfunction (units unknown) (unknown) (unknown) (no date) (unknown) (unknown) Tinnitus (units unknown) (unknown) (unknown) (no date) (unknown) (unknown) Tobacco + Subs tance Use (units unknown) (unknown) (unknown) (no date) (unknown) (unknown) Tobacco Status (unit s unknown) (unknown) (unknown) (no date) (unknown) (unknown) Tubular adenom a of colon (12/2014) (units unknown) (unknown) (unknown) (no date) (unknown) (unknown) Visit Reasons: OMT 04 (units unknown) (unknown) (unknown) (no date) (unknown) (unknown) Vitals (units unknown) (unknown) (unknown) (no date) (unknown) (unknown) Albert's (units unknown) (unknown) (unknown) (no date) (unknown) (unknown) _ (units unknown) (unknown) (unknown) (no date) (unknown) (unknown) (units unknown) (unknown) (unknown) (no date) (unknown) (unknown) albuterol [ALBUTEROL] Allergy (Unknown, Verified 01/26/23 11:45) (units unknown) (unknown) (unknown) (no date) (unknown) (unknown) also redness l ateral great toe cuticle, small pale spot (units unknown) (unknown) (unknown) (no date) (unknown) (unknown) bladder pain (units unknown) (unknown) (unknown) (no date) (unknown) (unknown) congestion and stomach problems (units unknown) (unknown) (unknown) (no date) (unknown) (unknown) dexamethasone Adverse Reaction (Severe, Verified 01/26/23 11:45) (units unknown) (unknown) (unknown) (no date) (unknown) (unknown) did comprehens cassy stool analysis through [facility] [employer] too (units unknown) (unknown) (unknown) (no date) (unknown) (unknown) did have SIBO breath through [facility] but unable to get results because was Dr (units unknown) (unknown) (unknown) (no date) (unknown) (unknown) extraarticular R calcaneal fracture on XR and CT, plan on limit weight bearing, (units unknown) (unknown) (unknown) (no date) (unknown) (unknown) folic acid (units unknown) (unknown) (unknown) (no date) (unknown) (unknown) gastritis flares (un its unknown) (unknown) (unknown) (no date) (unknown) (unknown) gluten [GLUTEN ] Allergy (Unknown, Verified 01/26/23 11:45) (units unknown) (unknown) (unknown) (no date) (unknown) (unknown) gluten free vegan (u nits unknown) (unknown) (unknown) (no date) (unknown) (unknown) grass pollen A llergy (Severe, Verified 01/26/23 11:45) (units unknown) (unknown) (unknown) (no date) (unknown) (unknown) have occurred. If there are any questions, please contact the Medical Records (units unknown) (unknown) (unknown) (no date) (unknown) (unknown) hydromorphone [HYDROMORPHONE] Allergy (Mild, Verified 01/26/23 11:45) (units unknown) (unknown) (unknown) (no date) (unknown) (unknown) iodine and osmany enium for thyroid, rather than taking thyroid (units unknown) (unknown) (unknown) (no date) (unknown) (unknown) lithium [LITHI UM] Allergy (Unknown, Verified 01/26/23 11:45) (units unknown) (unknown) (unknown) (no date) (unknown) (unknown) m spasm low ba ck, more L than R (units unknown) (unknown) (unknown) (no date) (unknown) (unknown) magnesium (units unknown) (unknown) (unknown) (no date) (unknown) (unknown) may occur. Occasional wrong-word or 'sound-alike' substitutions may have (units unknown) (unknown) (unknown) (no date) (unknown) (unknown) occurred due t o the inherent limitations of voice recognition software. Please (units unknown) (unknown) (unknown) (no date) (unknown) (unknown) polyneuropathies (un its unknown) (unknown) (unknown) (no date) (unknown) (unknown) read the note carefully and recognize, using context, where these substitutions (units unknown) (unknown) (unknown) (no date) (unknown) (unknown) mily stover, recheck XR 1m. (units unknown) (unknown) (unknown) (no date) (unknown) (unknown) soaking w epso m salt, has OTC antibacterial (units unknown) (unknown) (unknown) (no date) (unknown) (unknown) software. Alth ough every effort is made to edit content, hand cell tuber errors (units unknown) (unknown) (unknown) (no date) (unknown) (unknown) tachycardia (units unknown) (unknown) (unknown) (no date) (unknown) (unknown) takes: (units unknown) (unknown) (unknown) (no date) (unknown) (unknown) vitamin C / ir on 125mg plant based (units unknown) (unknown) (unknown) (no date) (unknown) (unknown) vitamin D / K2 29775/100 (units unknown) (unknown) (unknown) (no date) (unknown) (unknown) wants ongoing B12 and needles, hoping to get a formulation without additive (units unknown) (unknown) (unknown) (no date) (unknown) (unknown) weeks (units unknown) (unknown) Result panel 49 (unknown) (no date) (unknown) (unknown) (no value) (units unknown) (unknown) (unknown) (no date) (unknown) (unknown) (1) Pathologic al fracture, right foot, sequela: (units unknown) (unknown) (unknown) (no date) (unknown) (unknown) (10) Sacral re gion somatic dysfunction: (units unknown) (unknown) (unknown) (no date) (unknown) (unknown) (11) Somatic dysfunction of abdominal region: (units unknown) (unknown) (unknown) (no date) (unknown) (unknown) (12) Somatic dysfunction of rib region: (units unknown) (unknown) (unknown) (no date) (unknown) (unknown) (13) Somatic dysfunction of lower extremity: (units unknown) (unknown) (unknown) (no date) (unknown) (unknown) (14) Somatic dysfunction of upper extremity: (units unknown) (unknown) (unknown) (no date) (unknown) (unknown) (15) [place] a of great toe of right foot: (units unknown) (unknown) (unknown) (no date) (unknown) (unknown) (2) IBS (irrit able bowel syndrome): (units unknown) (unknown) (unknown) (no date) (unknown) (unknown) (3) Chronic sinusitis: (units unknown) (unknown) (unknown) (no date) (unknown) (unknown) (4) Pernicious anemia: (units unknown) (unknown) (unknown) (no date) (unknown) (unknown) (5) Cranial so matic dysfunction: (units unknown) (unknown) (unknown) (no date) (unknown) (unknown) (6) Cervical s omatic dysfunction: (units unknown) (unknown) (unknown) (no date) (unknown) (unknown) (7) Thoracic r egion somatic dysfunction: (units unknown) (unknown) (unknown) (no date) (unknown) (unknown) (8) Lumbar reg ion somatic dysfunction: (units unknown) (unknown) (unknown) (no date) (unknown) (unknown) (9) Pelvic zoey atic dysfunction: (units unknown) (unknown) (unknown) (no date) (unknown) (unknown) [id number] (units unknown) (unknown) (unknown) (no date) (unknown) (unknown) 03/03/23 (units unknown) (unknown) (unknown) (no date) (unknown) (unknown) 11:03 (units unknown) (unknown) (unknown) (no date) (unknown) (unknown) 01/01/23 fall f rom step stool, saw ortho ([place]), mildly displaced (units unknown) (unknown) (unknown) (no date) (unknown) (unknown) 67 yo female presents today for OMT (units unknown) (unknown) (unknown) (no date) (unknown) (unknown) 7th day Confucianism (u nits unknown) (unknown) (unknown) (no date) (unknown) (unknown) Accompanied by : (units unknown) (unknown) (unknown) (no date) (unknown) (unknown) Acute pain of left shoulder (units unknown) (unknown) (unknown) (no date) (unknown) (unknown) Add'l Complaint: (un its unknown) (unknown) (unknown) (no date) (unknown) (unknown) Age/Sex: 67 / F Date of Service: (units unknown) (unknown) (unknown) (no date) (unknown) (unknown) Allergic react ion to grass pollen (units unknown) (unknown) (unknown) (no date) (unknown) (unknown) Allergic to cats (un its unknown) (unknown) (unknown) (no date) (unknown) (unknown) Allergies (units unknown) (unknown) (unknown) (no date) (unknown) (unknown) [place] [id number] (units unknown) (unknown) (unknown) (no date) (unknown) (unknown) Anesthesia (units unknown) (unknown) (unknown) (no date) (unknown) (unknown) Angina pectoris (uni ts unknown) (unknown) (unknown) (no date) (unknown) (unknown) Ankle pain, ch ronic (2014) (units unknown) (unknown) (unknown) (no date) (unknown) (unknown) Ankle pain, chronic (units unknown) (unknown) (unknown) (no date) (unknown) (unknown) Anxiety (units unknown) (unknown) (unknown) (no date) (unknown) (unknown) Assessment + Plan (u nits unknown) (unknown) (unknown) (no date) (unknown) (unknown) Attending Dr: Laura Parikh DElliottOElliott (units unknown) (unknown) (unknown) (no date) (unknown) (unknown) B12 (IM after failing high dose sublingual) for occipital neuralgia, as well as (units unknown) (unknown) (unknown) (no date) (unknown) (unknown) BP 136/84 (units unknown) (unknown) (unknown) (no date) (unknown) (unknown) Bipolar disorder (un its unknown) (unknown) (unknown) (no date) (unknown) (unknown) Blood Pressure Location Lt brachial (units unknown) (unknown) (unknown) (no date) (unknown) (unknown) Brain cancer (units unknown) (unknown) (unknown) (no date) (unknown) (unknown) Broke R foot, very painful, still not weight bearing. Seeing ortho and podiatry. (units unknown) (unknown) (unknown) (no date) (unknown) (unknown) Cervical somat ic dysfunction (units unknown) (unknown) (unknown) (no date) (unknown) (unknown) Chicken pox (units unknown) (unknown) (unknown) (no date) (unknown) (unknown) Chief Complaint (uni ts unknown) (unknown) (unknown) (no date) (unknown) (unknown) Chief Complain t: multiple pain complaints (units unknown) (unknown) (unknown) (no date) (unknown) (unknown) Child Age: 34 Hx of appendectomy (units unknown) (unknown) (unknown) (no date) (unknown) (unknown) Child Age: 37 Penicillin allergy (units unknown) (unknown) (unknown) (no date) (unknown) (unknown) Child Age: 46 Hay fever (units unknown) (unknown) (unknown) (no date) (unknown) (unknown) 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 (units unknown) (unknown) (unknown) (no date) (unknown) (unknown) Chronic left-s ided thoracic back pain (units unknown) (unknown) (unknown) (no date) (unknown) (unknown) 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 () (units unknown) (unknown) (unknown) (no date) (unknown) (unknown) Compression fr acture of body of thoracic vertebra () (units unknown) (unknown) (unknown) (no date) (unknown) (unknown) Cranial somati c dysfunction (units unknown) (unknown) (unknown) (no date) (unknown) (unknown) DAIRY Allergy (Intermediate, Uncoded 01/26/23 11:45) (units unknown) (unknown) (unknown) (no date) (unknown) (unknown) : 4 Acct:[id number] (units unknown) (unknown) (unknown) (no date) (unknown) (unknown) Depression (09/21/14) (units unknown) (unknown) (unknown) (no date) (unknown) (unknown) Depression (units unknown) (unknown) (unknown) (no date) (unknown) (unknown) Dept at . (units unknown) (unknown) (unknown) (no date) (unknown) (unknown) Details: (units unknown) (unknown) (unknown) (no date) (unknown) (unknown) Documented By: Laura Parikh D.O. 03/03/23 1102 (units unknown) (unknown) (unknown) (no date) (unknown) (unknown) Draft (units unknown) (unknown) (unknown) (no date) (unknown) (unknown) Environmental allergies (units unknown) (unknown) (unknown) (no date) (unknown) (unknown) Esophageal stricture (units unknown) (unknown) (unknown) (no date) (unknown) (unknown) Esophagitis (units unknown) (unknown) (unknown) (no date) (unknown) (unknown) Family History (Updated 06/08/18 @ 12:37 by Rabia Jacob) (units unknown) (unknown) (unknown) (no date) (unknown) (unknown) Family Practic e Office Visit (units unknown) (unknown) (unknown) (no date) (unknown) (unknown) Fibromyalgia (units unknown) (unknown) (unknown) (no date) (unknown) (unknown) [facility] (units unknown) (unknown) (unknown) (no date) (unknown) (unknown) Foot pain (2012) (un its unknown) (unknown) (unknown) (no date) (unknown) (unknown) Gastropathy (units unknown) (unknown) (unknown) (no date) (unknown) (unknown) Gets relief with OMT (units unknown) (unknown) (unknown) (no date) (unknown) (unknown) Grandmother Di abetes mellitus (units unknown) (unknown) (unknown) (no date) (unknown) (unknown) HPI (units unknown) (unknown) (unknown) (no date) (unknown) (unknown) Hayfever (units unknown) (unknown) (unknown) (no date) (unknown) (unknown) Heart disease (units unknown) (unknown) (unknown) (no date) (unknown) (unknown) Height 5 ft 3.5 in ( units unknown) (unknown) (unknown) (no date) (unknown) (unknown) Hemorrhoids (units unknown) (unknown) (unknown) (no date) (unknown) (unknown) Hiatal hernia (units unknown) (unknown) (unknown) (no date) (unknown) (unknown) High cholesterol (un its unknown) (unknown) (unknown) (no date) (unknown) (unknown) History of candice betes mellitus (units unknown) (unknown) (unknown) (no date) (unknown) (unknown) History of fundoplication (units unknown) (unknown) (unknown) (no date) (unknown) (unknown) History of rep air of hiatal hernia (11/2011) (units unknown) (unknown) (unknown) (no date) (unknown) (unknown) History of tonsillectomy (1971) (units unknown) (unknown) (unknown) (no date) (unknown) (unknown) Hives (units unknown) (unknown) (unknown) (no date) (unknown) (unknown) Hypertension (units unknown) (unknown) (unknown) (no date) (unknown) (unknown) Hypothyroidism (unit s unknown) (unknown) (unknown) (no date) (unknown) (unknown) IBS (irritable bowel syndrome) (units unknown) (unknown) (unknown) (no date) (unknown) (unknown) 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 unknown) (unknown) (unknown) (no date) (unknown) (unknown) Intake Note: (units unknown) (unknown) (unknown) (no date) (unknown) (unknown) Intake perform ed by: Lani Benavides (units unknown) (unknown) (unknown) (no date) (unknown) (unknown) Intake (units unknown) (unknown) (unknown) (no date) (unknown) (unknown) Intake- [facility] Staff (units unknown) (unknown) (unknown) (no date) (unknown) (unknown) Irritable julien l syndrome type: with both diarrhea and constipation (units unknown) (unknown) (unknown) (no date) (unknown) (unknown) Last Menstural Cycle + Details (units unknown) (unknown) (unknown) (no date) (unknown) (unknown) Leg worse compensating for foot positions (units unknown) (unknown) (unknown) (no date) (unknown) (unknown) Liver cancer (units unknown) (unknown) (unknown) (no date) (unknown) (unknown) Loc: [facility] (units unknown) (unknown) (unknown) (no date) (unknown) (unknown) Lumbar facet arthropathy (2013) (units unknown) (unknown) (unknown) (no date) (unknown) (unknown) Lumbar region somatic dysfunction (units unknown) (unknown) (unknown) (no date) (unknown) (unknown) Lung cancer (units unknown) (unknown) (unknown) (no date) (unknown) (unknown) Managing IBS a nd pernicious anemia with supplementation and dietary (units unknown) (unknown) (unknown) (no date) (unknown) (unknown) Medical Histor y (Updated 03/03/23 @ 11:32 by Laura Parikh DO) (units unknown) (unknown) (unknown) (no date) (unknown) (unknown) Mother d Diabetes mellitus (units unknown) (unknown) (unknown) (no date) (unknown) (unknown) OMT per OSE to day, consider TPI (units unknown) (unknown) (unknown) (no date) (unknown) (unknown) Obesity (units unknown) (unknown) (unknown) (no date) (unknown) (unknown) Osteoarthritis (2011) (units unknown) (unknown) (unknown) (no date) (unknown) (unknown) Osteoporosis o f lumbar spine (units unknown) (unknown) (unknown) (no date) (unknown) (unknown) Osteoporosis (units unknown) (unknown) (unknown) (no date) (unknown) (unknown) Other Menstrua l Period: Postmenopausal (units unknown) (unknown) (unknown) (no date) (unknown) (unknown) Oxygen Deliver y Method room air (units unknown) (unknown) (unknown) (no date) (unknown) (unknown) PFSH (units unknown) (unknown) (unknown) (no date) (unknown) (unknown) PTSD (post-tra umatic stress disorder) (units unknown) (unknown) (unknown) (no date) (unknown) (unknown) Paronychia wit hout purulence. No target for drainage today. Continue soaking w (units unknown) (unknown) (unknown) (no date) (unknown) (unknown) Patient: Whitley Oakes MR#: M (units unknown) (unknown) (unknown) (no date) (unknown) (unknown) Pelvic somatic dysfunction (units unknown) (unknown) (unknown) (no date) (unknown) (unknown) Pernicious anemia (u nits unknown) (unknown) (unknown) (no date) (unknown) (unknown) Personality disorder (units unknown) (unknown) (unknown) (no date) (unknown) (unknown) Plan (units unknown) (unknown) (unknown) (no date) (unknown) (unknown) Position Sitting (un its unknown) (unknown) (unknown) (no date) (unknown) (unknown) Pulse 90 (units unknown) (unknown) (unknown) (no date) (unknown) (unknown) Pulse Oximetry (%) 96 (units unknown) (unknown) (unknown) (no date) (unknown) (unknown) Pulse Source Monitor (units unknown) (unknown) (unknown) (no date) (unknown) (unknown) Qualified Code (s): K58.2 - Mixed irritable bowel syndrome (units unknown) (unknown) (unknown) (no date) (unknown) (unknown) Qualifiers: (units unknown) (unknown) (unknown) (no date) (unknown) (unknown) R great toe pain (un its unknown) (unknown) (unknown) (no date) (unknown) (unknown) RLS (restless legs syndrome) (units unknown) (unknown) (unknown) (no date) (unknown) (unknown) Reason For Visit (un its unknown) (unknown) (unknown) (no date) (unknown) (unknown) Right shoulder pain (units unknown) (unknown) (unknown) (no date) (unknown) (unknown) SWELLING (units unknown) (unknown) (unknown) (no date) (unknown) (unknown) Sacral region somatic dysfunction (units unknown) (unknown) (unknown) (no date) (unknown) (unknown) Sacroiliitis (2012) (units unknown) (unknown) (unknown) (no date) (unknown) (unknown) Seborrheic keratosis (units unknown) (unknown) (unknown) (no date) (unknown) (unknown) Seeing podiatr y and ortho, still not able to fully bear weight. Significant (units unknown) (unknown) (unknown) (no date) (unknown) (unknown) Shoulders and neck worse having to use wheel chair (units unknown) (unknown) (unknown) (no date) (unknown) (unknown) Signed By: (units unknown) (unknown) (unknown) (no date) (unknown) (unknown) Sinusitis loca tion: maxillary Qualified Code(s): J32.0 - Chronic (units unknown) (unknown) (unknown) (no date) (unknown) (unknown) Sister d Diabetes mellitus (units unknown) (unknown) (unknown) (no date) (unknown) (unknown) Smoking Status : Former smoker (units unknown) (unknown) (unknown) (no date) (unknown) (unknown) Status post colonoscopy (09/2019) (units unknown) (unknown) (unknown) (no date) (unknown) (unknown) Status post endoscopy (12/2019) (units unknown) (unknown) (unknown) (no date) (unknown) (unknown) Status post reduction mammoplasty (07/2010) (units unknown) (unknown) (unknown) (no date) (unknown) (unknown) Status: Acute (units unknown) (unknown) (unknown) (no date) (unknown) (unknown) Status: Chronic (uni ts unknown) (unknown) (unknown) (no date) (unknown) (unknown) Still unable t o bear weight but touching down for balance - seeing ortho 2 more (units unknown) (unknown) (unknown) (no date) (unknown) (unknown) Stroke (units unknown) (unknown) (unknown) (no date) (unknown) (unknown) Substance abuse (uni ts unknown) (unknown) (unknown) (no date) (unknown) (unknown) Surgical Histo ry (Updated 01/18/20 @ 15:38 by Summer Price DO) (units unknown) (unknown) (unknown) (no date) (unknown) (unknown) Temp 96.9 F L (units unknown) (unknown) (unknown) (no date) (unknown) (unknown) Temp Source Te mporal Artery Scan (units unknown) (unknown) (unknown) (no date) (unknown) (unknown) This note may have been all or partially generated using voice recognition (units unknown) (unknown) (unknown) (no date) (unknown) (unknown) Thoracic regio n somatic dysfunction (units unknown) (unknown) (unknown) (no date) (unknown) (unknown) Time Coding Mi nutes Spent: (must be on same date of service/appointment) (units unknown) (unknown) (unknown) (no date) (unknown) (unknown) Time Spent (units unknown) (unknown) (unknown) (no date) (unknown) (unknown) Tinnitus (units unknown) (unknown) (unknown) (no date) (unknown) (unknown) Tobacco + Subs tance Use (units unknown) (unknown) (unknown) (no date) (unknown) (unknown) Tobacco Status (unit s unknown) (unknown) (unknown) (no date) (unknown) (unknown) Total visit ti me apart from OMT 31 minutes today, including 21 minutes face to (units unknown) (unknown) (unknown) (no date) (unknown) (unknown) Tubular adenom a of colon (12/2014) (units unknown) (unknown) (unknown) (no date) (unknown) (unknown) Visit Reasons: OMT 04 (units unknown) (unknown) (unknown) (no date) (unknown) (unknown) Vitals (units unknown) (unknown) (unknown) (no date) (unknown) (unknown) Albert's (units unknown) (unknown) (unknown) (no date) (unknown) (unknown) _ (units unknown) (unknown) (unknown) (no date) (unknown) (unknown) (units unknown) (unknown) (unknown) (no date) (unknown) (unknown) albuterol [ALBUTEROL] Allergy (Unknown, Verified 01/26/23 11:45) (units unknown) (unknown) (unknown) (no date) (unknown) (unknown) also redness l ateral great toe cuticle, small pale spot (units unknown) (unknown) (unknown) (no date) (unknown) (unknown) bladder pain (units unknown) (unknown) (unknown) (no date) (unknown) (unknown) congestion and stomach problems (units unknown) (unknown) (unknown) (no date) (unknown) (unknown) coordinating care. ( units unknown) (unknown) (unknown) (no date) (unknown) (unknown) dexamethasone Adverse Reaction (Severe, Verified 01/26/23 11:45) (units unknown) (unknown) (unknown) (no date) (unknown) (unknown) did comprehens cassy stool analysis through [employer] too (units unknown) (unknown) (unknown) (no date) (unknown) (unknown) did have SIBO breath through [facility] but unable to get results because was Dr (units unknown) (unknown) (unknown) (no date) (unknown) (unknown) energy depleti on as well as upper back, upper limb, neck pain re compensating (units unknown) (unknown) (unknown) (no date) (unknown) (unknown) epsom salt, fo llow with OTC antibacterial topical. Re-evaluate if worsening. (units unknown) (unknown) (unknown) (no date) (unknown) (unknown) extraarticular R calcaneal fracture on XR and CT, plan on limit weight bearing, (units unknown) (unknown) (unknown) (no date) (unknown) (unknown) face on histor y, exam, and counseling, and 10 minutes reviewing, charting, and (units unknown) (unknown) (unknown) (no date) (unknown) (unknown) folic acid (units unknown) (unknown) (unknown) (no date) (unknown) (unknown) for limited mobility. (units unknown) (unknown) (unknown) (no date) (unknown) (unknown) gastritis flares (un its unknown) (unknown) (unknown) (no date) (unknown) (unknown) gluten [GLUTEN ] Allergy (Unknown, Verified 01/26/23 11:45) (units unknown) (unknown) (unknown) (no date) (unknown) (unknown) gluten free vegan (u nits unknown) (unknown) (unknown) (no date) (unknown) (unknown) grass pollen A llergy (Severe, Verified 01/26/23 11:45) (units unknown) (unknown) (unknown) (no date) (unknown) (unknown) have occurred. If there are any questions, please contact the Medical Records (units unknown) (unknown) (unknown) (no date) (unknown) (unknown) hydromorphone [HYDROMORPHONE] Allergy (Mild, Verified 01/26/23 11:45) (units unknown) (unknown) (unknown) (no date) (unknown) (unknown) iodine and osmany enium for thyroid, rather than taking thyroid (units unknown) (unknown) (unknown) (no date) (unknown) (unknown) lithium [LITHI UM] Allergy (Unknown, Verified 01/26/23 11:45) (units unknown) (unknown) (unknown) (no date) (unknown) (unknown) m spasm low ba ck, more L than R (units unknown) (unknown) (unknown) (no date) (unknown) (unknown) magnesium (units unknown) (unknown) (unknown) (no date) (unknown) (unknown) maxillary sinusitis (units unknown) (unknown) (unknown) (no date) (unknown) (unknown) may occur. Occasional wrong-word or 'sound-alike' substitutions may have (units unknown) (unknown) (unknown) (no date) (unknown) (unknown) modifications. (unit s unknown) (unknown) (unknown) (no date) (unknown) (unknown) occurred due t o the inherent limitations of voice recognition software. Please (units unknown) (unknown) (unknown) (no date) (unknown) (unknown) polyneuropathies (un its unknown) (unknown) (unknown) (no date) (unknown) (unknown) read the note carefully and recognize, using context, where these substitutions (units unknown) (unknown) (unknown) (no date) (unknown) (unknown) mily stover, recheck XR 1m. (units unknown) (unknown) (unknown) (no date) (unknown) (unknown) soaking w epso m salt, has OTC antibacterial (units unknown) (unknown) (unknown) (no date) (unknown) (unknown) software. Alth ough every effort is made to edit content, hand cell tuber errors (units unknown) (unknown) (unknown) (no date) (unknown) (unknown) tachycardia (units unknown) (unknown) (unknown) (no date) (unknown) (unknown) takes: (units unknown) (unknown) (unknown) (no date) (unknown) (unknown) vitamin C / ir on 125mg plant based (units unknown) (unknown) (unknown) (no date) (unknown) (unknown) vitamin D / K2 78832/100 (units unknown) (unknown) (unknown) (no date) (unknown) (unknown) wants ongoing B12 and needles, hoping to get a formulation without additive (units unknown) (unknown) (unknown) (no date) (unknown) (unknown) weeks (units unknown) (unknown) Result panel 50 (unknown) (no date) (unknown) (unknown) (no value) (units unknown) (unknown) (unknown) (no date) (unknown) (unknown) (1) Pathologic al fracture, right foot, sequela: (units unknown) (unknown) (unknown) (no date) (unknown) (unknown) (10) Sacral re gion somatic dysfunction: (units unknown) (unknown) (unknown) (no date) (unknown) (unknown) (11) Somatic dysfunction of abdominal region: (units unknown) (unknown) (unknown) (no date) (unknown) (unknown) (12) Somatic dysfunction of rib region: (units unknown) (unknown) (unknown) (no date) (unknown) (unknown) (13) Somatic dysfunction of lower extremity: (units unknown) (unknown) (unknown) (no date) (unknown) (unknown) (14) Somatic dysfunction of upper extremity: (units unknown) (unknown) (unknown) (no date) (unknown) (unknown) (15) Paronychi a of great toe of right foot: (units unknown) (unknown) (unknown) (no date) (unknown) (unknown) (2) IBS (irrit able bowel syndrome): (units unknown) (unknown) (unknown) (no date) (unknown) (unknown) (3) Chronic sinusitis: (units unknown) (unknown) (unknown) (no date) (unknown) (unknown) (4) Pernicious anemia: (units unknown) (unknown) (unknown) (no date) (unknown) (unknown) (5) Cranial so matic dysfunction: (units unknown) (unknown) (unknown) (no date) (unknown) (unknown) (6) Cervical s omatic dysfunction: (units unknown) (unknown) (unknown) (no date) (unknown) (unknown) (7) Thoracic r egion somatic dysfunction: (units unknown) (unknown) (unknown) (no date) (unknown) (unknown) (8) Lumbar reg ion somatic dysfunction: (units unknown) (unknown) (unknown) (no date) (unknown) (unknown) (9) Pelvic zoey atic dysfunction: (units unknown) (unknown) (unknown) (no date) (unknown) (unknown) [id number] (units unknown) (unknown) (unknown) (no date) (unknown) (unknown) 03/03/23 (units unknown) (unknown) (unknown) (no date) (unknown) (unknown) 11:03 (units unknown) (unknown) (unknown) (no date) (unknown) (unknown) 01/01/23 fall f rom step stool, saw ortho ([place]), mildly displaced (units unknown) (unknown) (unknown) (no date) (unknown) (unknown) 67 yo female presents today for OMT (units unknown) (unknown) (unknown) (no date) (unknown) (unknown) 7th day Confucianism (u nits unknown) (unknown) (unknown) (no date) (unknown) (unknown) Accompanied by : (units unknown) (unknown) (unknown) (no date) (unknown) (unknown) Acute pain of left shoulder (units unknown) (unknown) (unknown) (no date) (unknown) (unknown) Add'l Complaint: (un its unknown) (unknown) (unknown) (no date) (unknown) (unknown) Age/Sex: 67 / F Date of Service: (units unknown) (unknown) (unknown) (no date) (unknown) (unknown) Allergic react ion to grass pollen (units unknown) (unknown) (unknown) (no date) (unknown) (unknown) Allergic to cats (un its unknown) (unknown) (unknown) (no date) (unknown) (unknown) Allergies (units unknown) (unknown) (unknown) (no date) (unknown) (unknown) [place] [id number] (units unknown) (unknown) (unknown) (no date) (unknown) (unknown) Anesthesia (units unknown) (unknown) (unknown) (no date) (unknown) (unknown) Angina pectoris (uni ts unknown) (unknown) (unknown) (no date) (unknown) (unknown) Ankle pain, ch ronic (2014) (units unknown) (unknown) (unknown) (no date) (unknown) (unknown) Ankle pain, chronic (units unknown) (unknown) (unknown) (no date) (unknown) (unknown) Anxiety (units unknown) (unknown) (unknown) (no date) (unknown) (unknown) Assessment + Plan (u nits unknown) (unknown) (unknown) (no date) (unknown) (unknown) Attending Dr: Laura LittleO. (units unknown) (unknown) (unknown) (no date) (unknown) (unknown) B12 (IM after failing high dose sublingual) for occipital neuralgia, as well as (units unknown) (unknown) (unknown) (no date) (unknown) (unknown) BP 136/84 (units unknown) (unknown) (unknown) (no date) (unknown) (unknown) Bipolar disorder (un its unknown) (unknown) (unknown) (no date) (unknown) (unknown) Blood Pressure Location Lt brachial (units unknown) (unknown) (unknown) (no date) (unknown) (unknown) Brain cancer (units unknown) (unknown) (unknown) (no date) (unknown) (unknown) Broke R foot, very painful, still not weight bearing. Seeing ortho and podiatry. (units unknown) (unknown) (unknown) (no date) (unknown) (unknown) Cervical somat ic dysfunction (units unknown) (unknown) (unknown) (no date) (unknown) (unknown) Chicken pox (units unknown) (unknown) (unknown) (no date) (unknown) (unknown) Chief Complaint (uni ts unknown) (unknown) (unknown) (no date) (unknown) (unknown) Chief Complain t: multiple pain complaints (units unknown) (unknown) (unknown) (no date) (unknown) (unknown) Child Age: 34 Hx of appendectomy (units unknown) (unknown) (unknown) (no date) (unknown) (unknown) Child Age: 37 Penicillin allergy (units unknown) (unknown) (unknown) (no date) (unknown) (unknown) Child Age: 46 Hay fever (units unknown) (unknown) (unknown) (no date) (unknown) (unknown) 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 (units unknown) (unknown) (unknown) (no date) (unknown) (unknown) Chronic left-s ided thoracic back pain (units unknown) (unknown) (unknown) (no date) (unknown) (unknown) Compound heterozygous MTHFR mutation [id number] () (units unknown) (unknown) (unknown) (no date) (unknown) (unknown) Compression fr acture of body of thoracic vertebra () (units unknown) (unknown) (unknown) (no date) (unknown) (unknown) Cranial somati c dysfunction (units unknown) (unknown) (unknown) (no date) (unknown) (unknown) DAIRY Allergy (Intermediate, Uncoded 01/26/23 11:45) (units unknown) (unknown) (unknown) (no date) (unknown) (unknown) : 4 Acct:[id number] (units unknown) (unknown) (unknown) (no date) (unknown) (unknown) Depression (09/21/14) (units unknown) (unknown) (unknown) (no date) (unknown) (unknown) Depression (units unknown) (unknown) (unknown) (no date) (unknown) (unknown) Dept at . (units unknown) (unknown) (unknown) (no date) (unknown) (unknown) Details: (units unknown) (unknown) (unknown) (no date) (unknown) (unknown) Documented By: Laura Parikh D.O. 03/03/23 1102 (units unknown) (unknown) (unknown) (no date) (unknown) (unknown) Draft (units unknown) (unknown) (unknown) (no date) (unknown) (unknown) Environmental allergies (units unknown) (unknown) (unknown) (no date) (unknown) (unknown) Esophageal stricture (units unknown) (unknown) (unknown) (no date) (unknown) (unknown) Esophagitis (units unknown) (unknown) (unknown) (no date) (unknown) (unknown) Family History (Updated 06/08/18 @ 12:37 by Rabia Jacob) (units unknown) (unknown) (unknown) (no date) (unknown) (unknown) Family Practic e Office Visit (units unknown) (unknown) (unknown) (no date) (unknown) (unknown) Fibromyalgia (units unknown) (unknown) (unknown) (no date) (unknown) (unknown) [facility] (units unknown) (unknown) (unknown) (no date) (unknown) (unknown) Foot pain (2011) (un its unknown) (unknown) (unknown) (no date) (unknown) (unknown) Gastropathy (units unknown) (unknown) (unknown) (no date) (unknown) (unknown) Gets relief with OMT (units unknown) (unknown) (unknown) (no date) (unknown) (unknown) Grandmother Di abetes mellitus (units unknown) (unknown) (unknown) (no date) (unknown) (unknown) HPI (units unknown) (unknown) (unknown) (no date) (unknown) (unknown) Hayfever (units unknown) (unknown) (unknown) (no date) (unknown) (unknown) Heart disease (units unknown) (unknown) (unknown) (no date) (unknown) (unknown) Height 5 ft 3.5 in ( units unknown) (unknown) (unknown) (no date) (unknown) (unknown) Hemorrhoids (units unknown) (unknown) (unknown) (no date) (unknown) (unknown) Hiatal hernia (units unknown) (unknown) (unknown) (no date) (unknown) (unknown) High cholesterol (un its unknown) (unknown) (unknown) (no date) (unknown) (unknown) History of candice betes mellitus (units unknown) (unknown) (unknown) (no date) (unknown) (unknown) History of fundoplication (units unknown) (unknown) (unknown) (no date) (unknown) (unknown) History of rep air of hiatal hernia (11/2011) (units unknown) (unknown) (unknown) (no date) (unknown) (unknown) History of tonsillectomy (1971) (units unknown) (unknown) (unknown) (no date) (unknown) (unknown) Hives (units unknown) (unknown) (unknown) (no date) (unknown) (unknown) Hypertension (units unknown) (unknown) (unknown) (no date) (unknown) (unknown) Hypothyroidism (unit s unknown) (unknown) (unknown) (no date) (unknown) (unknown) IBS (irritable bowel syndrome) (units unknown) (unknown) (unknown) (no date) (unknown) (unknown) 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 unknown) (unknown) (unknown) (no date) (unknown) (unknown) Intake Note: (units unknown) (unknown) (unknown) (no date) (unknown) (unknown) Intake perform ed by: Lani Benavides (units unknown) (unknown) (unknown) (no date) (unknown) (unknown) Intake (units unknown) (unknown) (unknown) (no date) (unknown) (unknown) Intake- Kasie carmichael Staff (units unknown) (unknown) (unknown) (no date) (unknown) (unknown) Irritable julien l syndrome type: with both diarrhea and constipation (units unknown) (unknown) (unknown) (no date) (unknown) (unknown) Last Menstural Cycle + Details (units unknown) (unknown) (unknown) (no date) (unknown) (unknown) Leg worse compensating for foot positions (units unknown) (unknown) (unknown) (no date) (unknown) (unknown) Liver cancer (units unknown) (unknown) (unknown) (no date) (unknown) (unknown) Loc: [facility] (units unknown) (unknown) (unknown) (no date) (unknown) (unknown) Lumbar facet arthropathy (2013) (units unknown) (unknown) (unknown) (no date) (unknown) (unknown) Lumbar region somatic dysfunction (units unknown) (unknown) (unknown) (no date) (unknown) (unknown) Lung cancer (units unknown) (unknown) (unknown) (no date) (unknown) (unknown) Managing IBS a nd pernicious anemia with supplementation and dietary (units unknown) (unknown) (unknown) (no date) (unknown) (unknown) Medical Histor y (Updated 03/03/23 @ 11:32 by Laura Parikh DO) (units unknown) (unknown) (unknown) (no date) (unknown) (unknown) Mother d Diabetes mellitus (units unknown) (unknown) (unknown) (no date) (unknown) (unknown) OMT per OSE to day, consider TPI (units unknown) (unknown) (unknown) (no date) (unknown) (unknown) Obesity (units unknown) (unknown) (unknown) (no date) (unknown) (unknown) Osteoarthritis (2011) (units unknown) (unknown) (unknown) (no date) (unknown) (unknown) Osteoporosis o f lumbar spine (units unknown) (unknown) (unknown) (no date) (unknown) (unknown) Osteoporosis (units unknown) (unknown) (unknown) (no date) (unknown) (unknown) Other Menstrua l Period: Postmenopausal (units unknown) (unknown) (unknown) (no date) (unknown) (unknown) Oxygen Deliver y Method room air (units unknown) (unknown) (unknown) (no date) (unknown) (unknown) PFSH (units unknown) (unknown) (unknown) (no date) (unknown) (unknown) PTSD (post-tra umatic stress disorder) (units unknown) (unknown) (unknown) (no date) (unknown) (unknown) Paronychia wit hout purulence. No target for drainage today. Continue soaking w (units unknown) (unknown) (unknown) (no date) (unknown) (unknown) Patient: VioletteWhitley MR#: M (units unknown) (unknown) (unknown) (no date) (unknown) (unknown) Pelvic somatic dysfunction (units unknown) (unknown) (unknown) (no date) (unknown) (unknown) Pernicious anemia (u nits unknown) (unknown) (unknown) (no date) (unknown) (unknown) Personality disorder (units unknown) (unknown) (unknown) (no date) (unknown) (unknown) Plan (units unknown) (unknown) (unknown) (no date) (unknown) (unknown) Position Sitting (un its unknown) (unknown) (unknown) (no date) (unknown) (unknown) Pulse 90 (units unknown) (unknown) (unknown) (no date) (unknown) (unknown) Pulse Oximetry (%) 96 (units unknown) (unknown) (unknown) (no date) (unknown) (unknown) Pulse Source Monitor (units unknown) (unknown) (unknown) (no date) (unknown) (unknown) Qualified Code (s): K58.2 - Mixed irritable bowel syndrome (units unknown) (unknown) (unknown) (no date) (unknown) (unknown) Qualifiers: (units unknown) (unknown) (unknown) (no date) (unknown) (unknown) R great toe pain (un its unknown) (unknown) (unknown) (no date) (unknown) (unknown) RLS (restless legs syndrome) (units unknown) (unknown) (unknown) (no date) (unknown) (unknown) Reason For Visit (un its unknown) (unknown) (unknown) (no date) (unknown) (unknown) Right shoulder pain (units unknown) (unknown) (unknown) (no date) (unknown) (unknown) SWELLING (units unknown) (unknown) (unknown) (no date) (unknown) (unknown) Sacral region somatic dysfunction (units unknown) (unknown) (unknown) (no date) (unknown) (unknown) Sacroiliitis (2012) (units unknown) (unknown) (unknown) (no date) (unknown) (unknown) Seborrheic keratosis (units unknown) (unknown) (unknown) (no date) (unknown) (unknown) Seeing podiatr y and ortho, still not able to fully bear weight. Significant (units unknown) (unknown) (unknown) (no date) (unknown) (unknown) Shoulders and neck worse having to use wheel chair (units unknown) (unknown) (unknown) (no date) (unknown) (unknown) Signed By: (units unknown) (unknown) (unknown) (no date) (unknown) (unknown) Sinusitis loca tion: maxillary Qualified Code(s): J32.0 - Chronic (units unknown) (unknown) (unknown) (no date) (unknown) (unknown) Sister d Diabetes mellitus (units unknown) (unknown) (unknown) (no date) (unknown) (unknown) Smoking Status : Former smoker (units unknown) (unknown) (unknown) (no date) (unknown) (unknown) Status post colonoscopy (09/2019) (units unknown) (unknown) (unknown) (no date) (unknown) (unknown) Status post endoscopy (12/2019) (units unknown) (unknown) (unknown) (no date) (unknown) (unknown) Status post reduction mammoplasty (07/2010) (units unknown) (unknown) (unknown) (no date) (unknown) (unknown) Status: Acute (units unknown) (unknown) (unknown) (no date) (unknown) (unknown) Status: Chronic (uni ts unknown) (unknown) (unknown) (no date) (unknown) (unknown) Still unable t o bear weight but touching down for balance - seeing ortho 2 more (units unknown) (unknown) (unknown) (no date) (unknown) (unknown) Stroke (units unknown) (unknown) (unknown) (no date) (unknown) (unknown) Substance abuse (uni ts unknown) (unknown) (unknown) (no date) (unknown) (unknown) Surgical Histo ry (Updated 01/18/20 @ 15:38 by Summer Price DO) (units unknown) (unknown) (unknown) (no date) (unknown) (unknown) Temp 96.9 F L (units unknown) (unknown) (unknown) (no date) (unknown) (unknown) Temp Source Te mporal Artery Scan (units unknown) (unknown) (unknown) (no date) (unknown) (unknown) This note may have been all or partially generated using voice recognition (units unknown) (unknown) (unknown) (no date) (unknown) (unknown) Thoracic regio n somatic dysfunction (units unknown) (unknown) (unknown) (no date) (unknown) (unknown) Time Coding Mi nutes Spent: (must be on same date of service/appointment) (units unknown) (unknown) (unknown) (no date) (unknown) (unknown) Time Spent (units unknown) (unknown) (unknown) (no date) (unknown) (unknown) Tinnitus (units unknown) (unknown) (unknown) (no date) (unknown) (unknown) Tobacco + Subs tance Use (units unknown) (unknown) (unknown) (no date) (unknown) (unknown) Tobacco Status (unit s unknown) (unknown) (unknown) (no date) (unknown) (unknown) Total visit ti me apart from OMT 31 minutes today, including 21 minutes face to (units unknown) (unknown) (unknown) (no date) (unknown) (unknown) Tubular adenom a of colon (12/2014) (units unknown) (unknown) (unknown) (no date) (unknown) (unknown) Visit Reasons: OMT 04 (units unknown) (unknown) (unknown) (no date) (unknown) (unknown) Vitals (units unknown) (unknown) (unknown) (no date) (unknown) (unknown) Albert's (units unknown) (unknown) (unknown) (no date) (unknown) (unknown) _ (units unknown) (unknown) (unknown) (no date) (unknown) (unknown) (units unknown) (unknown) (unknown) (no date) (unknown) (unknown) albuterol [ALBUTEROL] Allergy (Unknown, Verified 01/26/23 11:45) (units unknown) (unknown) (unknown) (no date) (unknown) (unknown) also redness l ateral great toe cuticle, small pale spot (units unknown) (unknown) (unknown) (no date) (unknown) (unknown) bladder pain (units unknown) (unknown) (unknown) (no date) (unknown) (unknown) congestion and stomach problems (units unknown) (unknown) (unknown) (no date) (unknown) (unknown) coordinating care. ( units unknown) (unknown) (unknown) (no date) (unknown) (unknown) dexamethasone Adverse Reaction (Severe, Verified 01/26/23 11:45) (units unknown) (unknown) (unknown) (no date) (unknown) (unknown) did comprehens cassy stool analysis through [facility] [employer] too (units unknown) (unknown) (unknown) (no date) (unknown) (unknown) did have SIBO breath through [facility] but unable to get results because was Dr (units unknown) (unknown) (unknown) (no date) (unknown) (unknown) energy depleti on as well as upper back, upper limb, neck pain re compensating (units unknown) (unknown) (unknown) (no date) (unknown) (unknown) epsom salt, fo llow with OTC antibacterial topical. Re-evaluate if worsening. (units unknown) (unknown) (unknown) (no date) (unknown) (unknown) extraarticular R calcaneal fracture on XR and CT, plan on limit weight bearing, (units unknown) (unknown) (unknown) (no date) (unknown) (unknown) face on histor y, exam, and counseling, and 10 minutes reviewing, charting, and (units unknown) (unknown) (unknown) (no date) (unknown) (unknown) folic acid (units unknown) (unknown) (unknown) (no date) (unknown) (unknown) for limited mobility. (units unknown) (unknown) (unknown) (no date) (unknown) (unknown) gastritis flares (un its unknown) (unknown) (unknown) (no date) (unknown) (unknown) gluten [GLUTEN ] Allergy (Unknown, Verified 01/26/23 11:45) (units unknown) (unknown) (unknown) (no date) (unknown) (unknown) gluten free vegan (u nits unknown) (unknown) (unknown) (no date) (unknown) (unknown) grass pollen A llergy (Severe, Verified 01/26/23 11:45) (units unknown) (unknown) (unknown) (no date) (unknown) (unknown) have occurred. If there are any questions, please contact the Medical Records (units unknown) (unknown) (unknown) (no date) (unknown) (unknown) hydromorphone [HYDROMORPHONE] Allergy (Mild, Verified 01/26/23 11:45) (units unknown) (unknown) (unknown) (no date) (unknown) (unknown) iodine and osmany enium for thyroid, rather than taking thyroid (units unknown) (unknown) (unknown) (no date) (unknown) (unknown) lithium [LITHI UM] Allergy (Unknown, Verified 01/26/23 11:45) (units unknown) (unknown) (unknown) (no date) (unknown) (unknown) m spasm low ba ck, more L than R (units unknown) (unknown) (unknown) (no date) (unknown) (unknown) magnesium (units unknown) (unknown) (unknown) (no date) (unknown) (unknown) maxillary sinusitis (units unknown) (unknown) (unknown) (no date) (unknown) (unknown) may occur. Occasional wrong-word or 'sound-alike' substitutions may have (units unknown) (unknown) (unknown) (no date) (unknown) (unknown) modifications. (unit s unknown) (unknown) (unknown) (no date) (unknown) (unknown) occurred due t o the inherent limitations of voice recognition software. Please (units unknown) (unknown) (unknown) (no date) (unknown) (unknown) polyneuropathies (un its unknown) (unknown) (unknown) (no date) (unknown) (unknown) read the note carefully and recognize, using context, where these substitutions (units unknown) (unknown) (unknown) (no date) (unknown) (unknown) mily stover, recheck XR 1m. (units unknown) (unknown) (unknown) (no date) (unknown) (unknown) soaking w epso m salt, has OTC antibacterial (units unknown) (unknown) (unknown) (no date) (unknown) (unknown) software. Alth ough every effort is made to edit content, hand cell tuber errors (units unknown) (unknown) (unknown) (no date) (unknown) (unknown) tachycardia (units unknown) (unknown) (unknown) (no date) (unknown) (unknown) takes: (units unknown) (unknown) (unknown) (no date) (unknown) (unknown) vitamin C / ir on 125mg plant based (units unknown) (unknown) (unknown) (no date) (unknown) (unknown) vitamin D / K2 87343/100 (units unknown) (unknown) (unknown) (no date) (unknown) (unknown) wants ongoing B12 and needles, hoping to get a formulation without additive (units unknown) (unknown) (unknown) (no date) (unknown) (unknown) weeks (units unknown) (unknown) Result panel 51 (unknown) (no date) (unknown) (unknown) (no value) (units unknown) (unknown) (unknown) (no date) (unknown) (unknown) (1) Pathologic al fracture, right foot, sequela: (units unknown) (unknown) (unknown) (no date) (unknown) (unknown) (10) Sacral re gion somatic dysfunction: (units unknown) (unknown) (unknown) (no date) (unknown) (unknown) (11) Somatic dysfunction of abdominal region: (units unknown) (unknown) (unknown) (no date) (unknown) (unknown) (12) Somatic dysfunction of rib region: (units unknown) (unknown) (unknown) (no date) (unknown) (unknown) (13) Somatic dysfunction of lower extremity: (units unknown) (unknown) (unknown) (no date) (unknown) (unknown) (14) Somatic dysfunction of upper extremity: (units unknown) (unknown) (unknown) (no date) (unknown) (unknown) (15) Paronychi a of great toe of right foot: (units unknown) (unknown) (unknown) (no date) (unknown) (unknown) (2) IBS (irrit able bowel syndrome): (units unknown) (unknown) (unknown) (no date) (unknown) (unknown) (3) Chronic sinusitis: (units unknown) (unknown) (unknown) (no date) (unknown) (unknown) (4) Pernicious anemia: (units unknown) (unknown) (unknown) (no date) (unknown) (unknown) (5) Cranial so matic dysfunction: (units unknown) (unknown) (unknown) (no date) (unknown) (unknown) (6) Cervical s omatic dysfunction: (units unknown) (unknown) (unknown) (no date) (unknown) (unknown) (7) Thoracic r egion somatic dysfunction: (units unknown) (unknown) (unknown) (no date) (unknown) (unknown) (8) Lumbar reg ion somatic dysfunction: (units unknown) (unknown) (unknown) (no date) (unknown) (unknown) (9) Pelvic zoey atic dysfunction: (units unknown) (unknown) (unknown) (no date) (unknown) (unknown) [id number] (units unknown) (unknown) (unknown) (no date) (unknown) (unknown) 03/03/23 (units unknown) (unknown) (unknown) (no date) (unknown) (unknown) 1,000 mcg IM l eft deltoid [id number] 09/07/24 85252-605-03 FRESENIUS KABI (units unknown) (unknown) (unknown) (no date) (unknown) (unknown) 11:03 (units unknown) (unknown) (unknown) (no date) (unknown) (unknown) 01/01/23 fall f rom step stool, saw ortho ([place]), mildly displaced (units unknown) (unknown) (unknown) (no date) (unknown) (unknown) 67 yo female presents today for OMT (units unknown) (unknown) (unknown) (no date) (unknown) (unknown) 7th day Confucianism (u nits unknown) (unknown) (unknown) (no date) (unknown) (unknown) Accompanied by : (units unknown) (unknown) (unknown) (no date) (unknown) (unknown) Acute pain of left shoulder (units unknown) (unknown) (unknown) (no date) (unknown) (unknown) Add'l Complaint: (un its unknown) (unknown) (unknown) (no date) (unknown) (unknown) Administered b y: Lani Benavides, CONTINUOUS MINING MACHINE OPERATOR on 03/03/23 11:53 (units unknown) (unknown) (unknown) (no date) (unknown) (unknown) Age/Sex: 67 / F Date of Service: (units unknown) (unknown) (unknown) (no date) (unknown) (unknown) Allergic react ion to grass pollen (units unknown) (unknown) (unknown) (no date) (unknown) (unknown) Allergic to cats (un its unknown) (unknown) (unknown) (no date) (unknown) (unknown) Allergies (units unknown) (unknown) (unknown) (no date) (unknown) (unknown) [place] [id number] (units unknown) (unknown) (unknown) (no date) (unknown) (unknown) Anesthesia (units unknown) (unknown) (unknown) (no date) (unknown) (unknown) Angina pectoris (uni ts unknown) (unknown) (unknown) (no date) (unknown) (unknown) Ankle pain, ch ronic (2014) (units unknown) (unknown) (unknown) (no date) (unknown) (unknown) Ankle pain, chronic (units unknown) (unknown) (unknown) (no date) (unknown) (unknown) Anxiety (units unknown) (unknown) (unknown) (no date) (unknown) (unknown) Assessment + Plan (u nits unknown) (unknown) (unknown) (no date) (unknown) (unknown) Attending Dr: Laura Parikh D.O. (units unknown) (unknown) (unknown) (no date) (unknown) (unknown) B12 (Cyanocoba l) Injection Today E53.9 - Vitamin B deficiency, unspecified (units unknown) (unknown) (unknown) (no date) (unknown) (unknown) B12 (IM after failing high dose sublingual) for occipital neuralgia, as well as (units unknown) (unknown) (unknown) (no date) (unknown) (unknown) BP 136/84 (units unknown) (unknown) (unknown) (no date) (unknown) (unknown) Bipolar disorder (un its unknown) (unknown) (unknown) (no date) (unknown) (unknown) Blood Pressure Location Lt brachial (units unknown) (unknown) (unknown) (no date) (unknown) (unknown) Brain cancer (units unknown) (unknown) (unknown) (no date) (unknown) (unknown) Broke R foot, very painful, still not weight bearing. Seeing ortho and podiatry. (units unknown) (unknown) (unknown) (no date) (unknown) (unknown) Cervical somat ic dysfunction (units unknown) (unknown) (unknown) (no date) (unknown) (unknown) Chicken pox (units unknown) (unknown) (unknown) (no date) (unknown) (unknown) Chief Complaint (uni ts unknown) (unknown) (unknown) (no date) (unknown) (unknown) Chief Complain t: multiple pain complaints (units unknown) (unknown) (unknown) (no date) (unknown) (unknown) Child Age: 34 Hx of appendectomy (units unknown) (unknown) (unknown) (no date) (unknown) (unknown) Child Age: 37 Penicillin allergy (units unknown) (unknown) (unknown) (no date) (unknown) (unknown) Child Age: 46 Hay fever (units unknown) (unknown) (unknown) (no date) (unknown) (unknown) 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 (units unknown) (unknown) (unknown) (no date) (unknown) (unknown) Chronic left-s ided thoracic back pain (units unknown) (unknown) (unknown) (no date) (unknown) (unknown) 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) (units unknown) (unknown) (unknown) (no date) (unknown) (unknown) Compression fr acture of body of thoracic vertebra () (units unknown) (unknown) (unknown) (no date) (unknown) (unknown) Cranial somati c dysfunction (units unknown) (unknown) (unknown) (no date) (unknown) (unknown) DAIRY Allergy (Intermediate, Uncoded 01/26/23 11:45) (units unknown) (unknown) (unknown) (no date) (unknown) (unknown) : [birth year] 4 Acct:[id number] (units unknown) (unknown) (unknown) (no date) (unknown) (unknown) Depression (09/21/14) (units unknown) (unknown) (unknown) (no date) (unknown) (unknown) Depression (units unknown) (unknown) (unknown) (no date) (unknown) (unknown) Dept at . (units unknown) (unknown) (unknown) (no date) (unknown) (unknown) Details: (units unknown) (unknown) (unknown) (no date) (unknown) (unknown) Documented By: Laura Parikh D.O. 03/03/23 1102 (units unknown) (unknown) (unknown) (no date) (unknown) (unknown) Dose Route Adm in Location Lot Number Expiration Date NDC (units unknown) (unknown) (unknown) (no date) (unknown) (unknown) Draft (units unknown) (unknown) (unknown) (no date) (unknown) (unknown) Environmental allergies (units unknown) (unknown) (unknown) (no date) (unknown) (unknown) Esophageal stricture (units unknown) (unknown) (unknown) (no date) (unknown) (unknown) Esophagitis (units unknown) (unknown) (unknown) (no date) (unknown) (unknown) Family History (Updated 06/08/18 @ 12:37 by Rabia Jacob) (units unknown) (unknown) (unknown) (no date) (unknown) (unknown) Family Practic e Office Visit (units unknown) (unknown) (unknown) (no date) (unknown) (unknown) Fibromyalgia (units unknown) (unknown) (unknown) (no date) (unknown) (unknown) [facility] (units unknown) (unknown) (unknown) (no date) (unknown) (unknown) Foot pain (2011) (un its unknown) (unknown) (unknown) (no date) (unknown) (unknown) Gastropathy (units unknown) (unknown) (unknown) (no date) (unknown) (unknown) Gets relief with OMT (units unknown) (unknown) (unknown) (no date) (unknown) (unknown) Grandmother Di abetes mellitus (units unknown) (unknown) (unknown) (no date) (unknown) (unknown) HPI (units unknown) (unknown) (unknown) (no date) (unknown) (unknown) Hayfever (units unknown) (unknown) (unknown) (no date) (unknown) (unknown) Heart disease (units unknown) (unknown) (unknown) (no date) (unknown) (unknown) Height 5 ft 3.5 in ( units unknown) (unknown) (unknown) (no date) (unknown) (unknown) Hemorrhoids (units unknown) (unknown) (unknown) (no date) (unknown) (unknown) Hiatal hernia (units unknown) (unknown) (unknown) (no date) (unknown) (unknown) High cholesterol (un its unknown) (unknown) (unknown) (no date) (unknown) (unknown) History of candice betes mellitus (units unknown) (unknown) (unknown) (no date) (unknown) (unknown) History of fundoplication (units unknown) (unknown) (unknown) (no date) (unknown) (unknown) History of rep air of hiatal hernia (11/2011) (units unknown) (unknown) (unknown) (no date) (unknown) (unknown) History of tonsillectomy (1971) (units unknown) (unknown) (unknown) (no date) (unknown) (unknown) Hives (units unknown) (unknown) (unknown) (no date) (unknown) (unknown) Hypertension (units unknown) (unknown) (unknown) (no date) (unknown) (unknown) Hypothyroidism (unit s unknown) (unknown) (unknown) (no date) (unknown) (unknown) IBS (irritable bowel syndrome) (units unknown) (unknown) (unknown) (no date) (unknown) (unknown) 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 unknown) (unknown) (unknown) (no date) (unknown) (unknown) Intake Note: (units unknown) (unknown) (unknown) (no date) (unknown) (unknown) Intake perform ed by: Lani Benavides (units unknown) (unknown) (unknown) (no date) (unknown) (unknown) Intake (units unknown) (unknown) (unknown) (no date) (unknown) (unknown) Intake- [place] [facility] Staff (units unknown) (unknown) (unknown) (no date) (unknown) (unknown) Irritable julien l syndrome type: with both diarrhea and constipation (units unknown) (unknown) (unknown) (no date) (unknown) (unknown) Last Menstural Cycle + Details (units unknown) (unknown) (unknown) (no date) (unknown) (unknown) Leg worse compensating for foot positions (units unknown) (unknown) (unknown) (no date) (unknown) (unknown) Liver cancer (units unknown) (unknown) (unknown) (no date) (unknown) (unknown) Loc: [facility] (units unknown) (unknown) (unknown) (no date) (unknown) (unknown) Lumbar facet arthropathy (2013) (units unknown) (unknown) (unknown) (no date) (unknown) (unknown) Lumbar region somatic dysfunction (units unknown) (unknown) (unknown) (no date) (unknown) (unknown) Lung cancer (units unknown) (unknown) (unknown) (no date) (unknown) (unknown) Managing IBS a nd pernicious anemia with supplementation and dietary (units unknown) (unknown) (unknown) (no date) (unknown) (unknown) 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) (unknown) (unknown) (no date) (unknown) (unknown) Medical Histor y (Updated 03/03/23 @ 11:32 by Laura Parikh DO) (units unknown) (unknown) (unknown) (no date) (unknown) (unknown) Mother d Diabetes mellitus (units unknown) (unknown) (unknown) (no date) (unknown) (unknown) OMT per OSE to day, consider TPI (units unknown) (unknown) (unknown) (no date) (unknown) (unknown) Obesity (units unknown) (unknown) (unknown) (no date) (unknown) (unknown) Office Meds (units unknown) (unknown) (unknown) (no date) (unknown) (unknown) Orders (units unknown) (unknown) (unknown) (no date) (unknown) (unknown) Orders: (units unknown) (unknown) (unknown) (no date) (unknown) (unknown) Osteoarthritis (2012) (units unknown) (unknown) (unknown) (no date) (unknown) (unknown) Osteoporosis o f lumbar spine (units unknown) (unknown) (unknown) (no date) (unknown) (unknown) Osteoporosis (units unknown) (unknown) (unknown) (no date) (unknown) (unknown) Other Menstrua l Period: Postmenopausal (units unknown) (unknown) (unknown) (no date) (unknown) (unknown) Oxygen Deliver y Method room air (units unknown) (unknown) (unknown) (no date) (unknown) (unknown) PFSH (units unknown) (unknown) (unknown) (no date) (unknown) (unknown) PTSD (post-tra umatic stress disorder) (units unknown) (unknown) (unknown) (no date) (unknown) (unknown) Paronychia wit hout purulence. No target for drainage today. Continue soaking w (units unknown) (unknown) (unknown) (no date) (unknown) (unknown) Patient: VioletteWhitley Latasha MR#: M (units unknown) (unknown) (unknown) (no date) (unknown) (unknown) Pelvic somatic dysfunction (units unknown) (unknown) (unknown) (no date) (unknown) (unknown) Performing Pro vider: Laura Parikh, DO (units unknown) (unknown) (unknown) (no date) (unknown) (unknown) Pernicious anemia (u nits unknown) (unknown) (unknown) (no date) (unknown) (unknown) Personality disorder (units unknown) (unknown) (unknown) (no date) (unknown) (unknown) Plan (units unknown) (unknown) (unknown) (no date) (unknown) (unknown) Position Sitting (un its unknown) (unknown) (unknown) (no date) (unknown) (unknown) Pulse 90 (units unknown) (unknown) (unknown) (no date) (unknown) (unknown) Pulse Oximetry (%) 96 (units unknown) (unknown) (unknown) (no date) (unknown) (unknown) Pulse Source Monitor (units unknown) (unknown) (unknown) (no date) (unknown) (unknown) Qualified Code (s): K58.2 - Mixed irritable bowel syndrome (units unknown) (unknown) (unknown) (no date) (unknown) (unknown) Qualifiers: (units unknown) (unknown) (unknown) (no date) (unknown) (unknown) R great toe pain (un its unknown) (unknown) (unknown) (no date) (unknown) (unknown) RLS (restless legs syndrome) (units unknown) (unknown) (unknown) (no date) (unknown) (unknown) Reason For Visit (un its unknown) (unknown) (unknown) (no date) (unknown) (unknown) Right shoulder pain (units unknown) (unknown) (unknown) (no date) (unknown) (unknown) SWELLING (units unknown) (unknown) (unknown) (no date) (unknown) (unknown) Sacral region somatic dysfunction (units unknown) (unknown) (unknown) (no date) (unknown) (unknown) Sacroiliitis (2012) (units unknown) (unknown) (unknown) (no date) (unknown) (unknown) Seborrheic keratosis (units unknown) (unknown) (unknown) (no date) (unknown) (unknown) Seeing podiatr y and ortho, still not able to fully bear weight. Significant (units unknown) (unknown) (unknown) (no date) (unknown) (unknown) Shoulders and neck worse having to use wheel chair (units unknown) (unknown) (unknown) (no date) (unknown) (unknown) Signed By: (units unknown) (unknown) (unknown) (no date) (unknown) (unknown) Sinusitis loca tion: maxillary Qualified Code(s): J32.0 - Chronic (units unknown) (unknown) (unknown) (no date) (unknown) (unknown) Sister d Diabetes mellitus (units unknown) (unknown) (unknown) (no date) (unknown) (unknown) Smoking Status : Former smoker (units unknown) (unknown) (unknown) (no date) (unknown) (unknown) Status post colonoscopy (09/2019) (units unknown) (unknown) (unknown) (no date) (unknown) (unknown) Status post endoscopy (12/2019) (units unknown) (unknown) (unknown) (no date) (unknown) (unknown) Status post reduction mammoplasty (07/2010) (units unknown) (unknown) (unknown) (no date) (unknown) (unknown) Status: Acute (units unknown) (unknown) (unknown) (no date) (unknown) (unknown) Status: Chronic (uni ts unknown) (unknown) (unknown) (no date) (unknown) (unknown) Still unable t o bear weight but touching down for balance - seeing ortho 2 more (units unknown) (unknown) (unknown) (no date) (unknown) (unknown) Stroke (units unknown) (unknown) (unknown) (no date) (unknown) (unknown) Substance abuse (uni ts unknown) (unknown) (unknown) (no date) (unknown) (unknown) Surgical Histo ry (Updated 01/18/20 @ 15:38 by Summer Price DO) (units unknown) (unknown) (unknown) (no date) (unknown) (unknown) Temp 96.9 F L (units unknown) (unknown) (unknown) (no date) (unknown) (unknown) Temp Source Te mporal Artery Scan (units unknown) (unknown) (unknown) (no date) (unknown) (unknown) This note may have been all or partially generated using voice recognition (units unknown) (unknown) (unknown) (no date) (unknown) (unknown) Thoracic regio n somatic dysfunction (units unknown) (unknown) (unknown) (no date) (unknown) (unknown) Time Coding Mi nutes Spent: (must be on same date of service/appointment) (units unknown) (unknown) (unknown) (no date) (unknown) (unknown) Time Spent (units unknown) (unknown) (unknown) (no date) (unknown) (unknown) Tinnitus (units unknown) (unknown) (unknown) (no date) (unknown) (unknown) Tobacco + Subs tance Use (units unknown) (unknown) (unknown) (no date) (unknown) (unknown) Tobacco Status (unit s unknown) (unknown) (unknown) (no date) (unknown) (unknown) Total visit ti me apart from OMT 31 minutes today, including 21 minutes face to (units unknown) (unknown) (unknown) (no date) (unknown) (unknown) Tubular adenom a of colon (12/2014) (units unknown) (unknown) (unknown) (no date) (unknown) (unknown) Visit Reasons: OMT 04 (units unknown) (unknown) (unknown) (no date) (unknown) (unknown) Vitals (units unknown) (unknown) (unknown) (no date) (unknown) (unknown) Albert's (units unknown) (unknown) (unknown) (no date) (unknown) (unknown) _ (units unknown) (unknown) (unknown) (no date) (unknown) (unknown) (units unknown) (unknown) (unknown) (no date) (unknown) (unknown) albuterol [ALBUTEROL] Allergy (Unknown, Verified 01/26/23 11:45) (units unknown) (unknown) (unknown) (no date) (unknown) (unknown) also redness l ateral great toe cuticle, small pale spot (units unknown) (unknown) (unknown) (no date) (unknown) (unknown) bladder pain (units unknown) (unknown) (unknown) (no date) (unknown) (unknown) congestion and stomach problems (units unknown) (unknown) (unknown) (no date) (unknown) (unknown) coordinating care. ( units unknown) (unknown) (unknown) (no date) (unknown) (unknown) cyanocobalamin (vitamin B-12) (units unknown) (unknown) (unknown) (no date) (unknown) (unknown) dexamethasone Adverse Reaction (Severe, Verified 01/26/23 11:45) (units unknown) (unknown) (unknown) (no date) (unknown) (unknown) did comprehens cassy stool analysis through [facility] [employer] too (units unknown) (unknown) (unknown) (no date) (unknown) (unknown) did have SIBO breath through [facility] but unable to get results because was Dr (units unknown) (unknown) (unknown) (no date) (unknown) (unknown) energy depleti on as well as upper back, upper limb, neck pain re compensating (units unknown) (unknown) (unknown) (no date) (unknown) (unknown) epsom salt, fo llow with OTC antibacterial topical. Re-evaluate if worsening. (units unknown) (unknown) (unknown) (no date) (unknown) (unknown) extraarticular R calcaneal fracture on XR and CT, plan on limit weight bearing, (units unknown) (unknown) (unknown) (no date) (unknown) (unknown) face on histor y, exam, and counseling, and 10 minutes reviewing, charting, and (units unknown) (unknown) (unknown) (no date) (unknown) (unknown) folic acid (units unknown) (unknown) (unknown) (no date) (unknown) (unknown) for limited mobility. (units unknown) (unknown) (unknown) (no date) (unknown) (unknown) gastritis flares (un its unknown) (unknown) (unknown) (no date) (unknown) (unknown) gluten [GLUTEN ] Allergy (Unknown, Verified 01/26/23 11:45) (units unknown) (unknown) (unknown) (no date) (unknown) (unknown) gluten free vegan (u nits unknown) (unknown) (unknown) (no date) (unknown) (unknown) grass pollen A llergy (Severe, Verified 01/26/23 11:45) (units unknown) (unknown) (unknown) (no date) (unknown) (unknown) have occurred. If there are any questions, please contact the Medical Records (units unknown) (unknown) (unknown) (no date) (unknown) (unknown) hydromorphone [HYDROMORPHONE] Allergy (Mild, Verified 01/26/23 11:45) (units unknown) (unknown) (unknown) (no date) (unknown) (unknown) iodine and osmany enium for thyroid, rather than taking thyroid (units unknown) (unknown) (unknown) (no date) (unknown) (unknown) lithium [LITHI UM] Allergy (Unknown, Verified 01/26/23 11:45) (units unknown) (unknown) (unknown) (no date) (unknown) (unknown) m spasm low ba ck, more L than R (units unknown) (unknown) (unknown) (no date) (unknown) (unknown) magnesium (units unknown) (unknown) (unknown) (no date) (unknown) (unknown) maxillary sinusitis (units unknown) (unknown) (unknown) (no date) (unknown) (unknown) may occur. Occasional wrong-word or 'sound-alike' substitutions may have (units unknown) (unknown) (unknown) (no date) (unknown) (unknown) modifications. (unit s unknown) (unknown) (unknown) (no date) (unknown) (unknown) occurred due t o the inherent limitations of voice recognition software. Please (units unknown) (unknown) (unknown) (no date) (unknown) (unknown) polyneuropathies (un its unknown) (unknown) (unknown) (no date) (unknown) (unknown) read the note carefully and recognize, using context, where these substitutions (units unknown) (unknown) (unknown) (no date) (unknown) (unknown) mily palmer and brianna, recheck XR 1m. (units unknown) (unknown) (unknown) (no date) (unknown) (unknown) soaking w epso m salt, has OTC antibacterial (units unknown) (unknown) (unknown) (no date) (unknown) (unknown) software. Alth ough every effort is made to edit content, hand cell tuber errors (units unknown) (unknown) (unknown) (no date) (unknown) (unknown) tachycardia (units unknown) (unknown) (unknown) (no date) (unknown) (unknown) takes: (units unknown) (unknown) (unknown) (no date) (unknown) (unknown) vitamin C / ir on 125mg plant based (units unknown) (unknown) (unknown) (no date) (unknown) (unknown) vitamin D / K2 98320/100 (units unknown) (unknown) (unknown) (no date) (unknown) (unknown) wants ongoing B12 and needles, hoping to get a formulation without additive (units unknown) (unknown) (unknown) (no date) (unknown) (unknown) weeks (units unknown) (unknown) Result panel 52 (unknown) (no date) (unknown) (unknown) (no value) (units unknown) (unknown) (unknown) (no date) (unknown) (unknown) (1) Pathologic al fracture, right foot, sequela: (units unknown) (unknown) (unknown) (no date) (unknown) (unknown) (10) Sacral re gion somatic dysfunction: (units unknown) (unknown) (unknown) (no date) (unknown) (unknown) (11) Somatic dysfunction of abdominal region: (units unknown) (unknown) (unknown) (no date) (unknown) (unknown) (12) Somatic dysfunction of rib region: (units unknown) (unknown) (unknown) (no date) (unknown) (unknown) (13) Somatic dysfunction of lower extremity: (units unknown) (unknown) (unknown) (no date) (unknown) (unknown) (14) Somatic dysfunction of upper extremity: (units unknown) (unknown) (unknown) (no date) (unknown) (unknown) (15) Paronychi a of great toe of right foot: (units unknown) (unknown) (unknown) (no date) (unknown) (unknown) (2) IBS (irrit able bowel syndrome): (units unknown) (unknown) (unknown) (no date) (unknown) (unknown) (3) Chronic sinusitis: (units unknown) (unknown) (unknown) (no date) (unknown) (unknown) (4) Pernicious anemia: (units unknown) (unknown) (unknown) (no date) (unknown) (unknown) (5) Cranial so matic dysfunction: (units unknown) (unknown) (unknown) (no date) (unknown) (unknown) (6) Cervical s omatic dysfunction: (units unknown) (unknown) (unknown) (no date) (unknown) (unknown) (7) Thoracic r egion somatic dysfunction: (units unknown) (unknown) (unknown) (no date) (unknown) (unknown) (8) Lumbar reg ion somatic dysfunction: (units unknown) (unknown) (unknown) (no date) (unknown) (unknown) (9) Pelvic zoey atic dysfunction: (units unknown) (unknown) (unknown) (no date) (unknown) (unknown) [id number] (units unknown) (unknown) (unknown) (no date) (unknown) (unknown) 03/03/23 (units unknown) (unknown) (unknown) (no date) (unknown) (unknown) 1,000 mcg IM l eft deltoid [id number] 09/07/24 [id number] FRESENIUS KABI (units unknown) (unknown) (unknown) (no date) (unknown) (unknown) 11:03 (units unknown) (unknown) (unknown) (no date) (unknown) (unknown) 01/01/23 fall f rom step stool, saw ortho ([place]), mildly displaced (units unknown) (unknown) (unknown) (no date) (unknown) (unknown) 67 yo female presents today for OMT (units unknown) (unknown) (unknown) (no date) (unknown) (unknown) 7th day Confucianism (u nits unknown) (unknown) (unknown) (no date) (unknown) (unknown) Accompanied by : (units unknown) (unknown) (unknown) (no date) (unknown) (unknown) Acute pain of left shoulder (units unknown) (unknown) (unknown) (no date) (unknown) (unknown) Add'l Complaint: (un its unknown) (unknown) (unknown) (no date) (unknown) (unknown) Administered b y: Lani Kennedy, CONTINUOUS MINING MACHINE OPERATOR on 03/03/23 11:53 (units unknown) (unknown) (unknown) (no date) (unknown) (unknown) Age/Sex: 67 / F Date of Service: (units unknown) (unknown) (unknown) (no date) (unknown) (unknown) Allergic react ion to grass pollen (units unknown) (unknown) (unknown) (no date) (unknown) (unknown) Allergic to cats (un its unknown) (unknown) (unknown) (no date) (unknown) (unknown) Allergies (units unknown) (unknown) (unknown) (no date) (unknown) (unknown) [place] [address] (units unknown) (unknown) (unknown) (no date) (unknown) (unknown) Anesthesia (units unknown) (unknown) (unknown) (no date) (unknown) (unknown) Angina pectoris (uni ts unknown) (unknown) (unknown) (no date) (unknown) (unknown) Ankle pain, ch ronic (2014) (units unknown) (unknown) (unknown) (no date) (unknown) (unknown) Ankle pain, chronic (units unknown) (unknown) (unknown) (no date) (unknown) (unknown) Anxiety (units unknown) (unknown) (unknown) (no date) (unknown) (unknown) Assessment + Plan (u nits unknown) (unknown) (unknown) (no date) (unknown) (unknown) Attending Dr: Laura Parikh D.O. (units unknown) (unknown) (unknown) (no date) (unknown) (unknown) B12 (Cyanocoba l) Injection Today E53.9 - Vitamin B deficiency, unspecified (units unknown) (unknown) (unknown) (no date) (unknown) (unknown) B12 (IM after failing high dose sublingual) for occipital neuralgia, as well as (units unknown) (unknown) (unknown) (no date) (unknown) (unknown) BP 136/84 (units unknown) (unknown) (unknown) (no date) (unknown) (unknown) Bipolar disorder (un its unknown) (unknown) (unknown) (no date) (unknown) (unknown) Blood Pressure Location Lt brachial (units unknown) (unknown) (unknown) (no date) (unknown) (unknown) Brain cancer (units unknown) (unknown) (unknown) (no date) (unknown) (unknown) Broke R foot, very painful, still not weight bearing. Seeing ortho and podiatry. (units unknown) (unknown) (unknown) (no date) (unknown) (unknown) Cervical somat ic dysfunction (units unknown) (unknown) (unknown) (no date) (unknown) (unknown) Chicken pox (units unknown) (unknown) (unknown) (no date) (unknown) (unknown) Chief Complaint (uni ts unknown) (unknown) (unknown) (no date) (unknown) (unknown) Chief Complain t: multiple pain complaints (units unknown) (unknown) (unknown) (no date) (unknown) (unknown) Child Age: 34 Hx of appendectomy (units unknown) (unknown) (unknown) (no date) (unknown) (unknown) Child Age: 37 Penicillin allergy (units unknown) (unknown) (unknown) (no date) (unknown) (unknown) Child Age: 46 Hay fever (units unknown) (unknown) (unknown) (no date) (unknown) (unknown) 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 (units unknown) (unknown) (unknown) (no date) (unknown) (unknown) Chronic left-s ided thoracic back pain (units unknown) (unknown) (unknown) (no date) (unknown) (unknown) 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) (units unknown) (unknown) (unknown) (no date) (unknown) (unknown) Compression fr acture of body of thoracic vertebra () (units unknown) (unknown) (unknown) (no date) (unknown) (unknown) Cranial somati c dysfunction (units unknown) (unknown) (unknown) (no date) (unknown) (unknown) DAIRY Allergy (Intermediate, Uncoded 01/26/23 11:45) (units unknown) (unknown) (unknown) (no date) (unknown) (unknown) : 4 Acct:[id number] (units unknown) (unknown) (unknown) (no date) (unknown) (unknown) Depression (09/21/14) (units unknown) (unknown) (unknown) (no date) (unknown) (unknown) Depression (units unknown) (unknown) (unknown) (no date) (unknown) (unknown) Dept at . (units unknown) (unknown) (unknown) (no date) (unknown) (unknown) Details: (units unknown) (unknown) (unknown) (no date) (unknown) (unknown) Documented By: Laura Parikh D.O. 03/03/23 1102 (units unknown) (unknown) (unknown) (no date) (unknown) (unknown) Dose Route Adm in Location Lot Number Expiration Date NDC (units unknown) (unknown) (unknown) (no date) (unknown) (unknown) Draft (units unknown) (unknown) (unknown) (no date) (unknown) (unknown) Environmental allergies (units unknown) (unknown) (unknown) (no date) (unknown) (unknown) Esophageal stricture (units unknown) (unknown) (unknown) (no date) (unknown) (unknown) Esophagitis (units unknown) (unknown) (unknown) (no date) (unknown) (unknown) Family History (Updated 06/08/18 @ 12:37 by Rabia Jacob) (units unknown) (unknown) (unknown) (no date) (unknown) (unknown) Family Practic e Office Visit (units unknown) (unknown) (unknown) (no date) (unknown) (unknown) Fibromyalgia (units unknown) (unknown) (unknown) (no date) (unknown) (unknown) [facility] (units unknown) (unknown) (unknown) (no date) (unknown) (unknown) Foot pain (2011) (un its unknown) (unknown) (unknown) (no date) (unknown) (unknown) Gastropathy (units unknown) (unknown) (unknown) (no date) (unknown) (unknown) Gets relief with OMT (units unknown) (unknown) (unknown) (no date) (unknown) (unknown) Grandmother Di abetes mellitus (units unknown) (unknown) (unknown) (no date) (unknown) (unknown) HPI (units unknown) (unknown) (unknown) (no date) (unknown) (unknown) Hayfever (units unknown) (unknown) (unknown) (no date) (unknown) (unknown) Heart disease (units unknown) (unknown) (unknown) (no date) (unknown) (unknown) Height 5 ft 3.5 in ( units unknown) (unknown) (unknown) (no date) (unknown) (unknown) Hemorrhoids (units unknown) (unknown) (unknown) (no date) (unknown) (unknown) Hiatal hernia (units unknown) (unknown) (unknown) (no date) (unknown) (unknown) High cholesterol (un its unknown) (unknown) (unknown) (no date) (unknown) (unknown) History of candice betes mellitus (units unknown) (unknown) (unknown) (no date) (unknown) (unknown) History of fundoplication (units unknown) (unknown) (unknown) (no date) (unknown) (unknown) History of rep air of hiatal hernia (11/2011) (units unknown) (unknown) (unknown) (no date) (unknown) (unknown) History of tonsillectomy (1971) (units unknown) (unknown) (unknown) (no date) (unknown) (unknown) Hives (units unknown) (unknown) (unknown) (no date) (unknown) (unknown) Hypertension (units unknown) (unknown) (unknown) (no date) (unknown) (unknown) Hypothyroidism (unit s unknown) (unknown) (unknown) (no date) (unknown) (unknown) IBS (irritable bowel syndrome) (units unknown) (unknown) (unknown) (no date) (unknown) (unknown) 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 unknown) (unknown) (unknown) (no date) (unknown) (unknown) Intake Note: (units unknown) (unknown) (unknown) (no date) (unknown) (unknown) Intake perform ed by: Lani Benavides (units unknown) (unknown) (unknown) (no date) (unknown) (unknown) Intake (units unknown) (unknown) (unknown) (no date) (unknown) (unknown) Intake- [facility] [facility] Staff (units unknown) (unknown) (unknown) (no date) (unknown) (unknown) Irritable julien l syndrome type: with both diarrhea and constipation (units unknown) (unknown) (unknown) (no date) (unknown) (unknown) Last Menstural Cycle + Details (units unknown) (unknown) (unknown) (no date) (unknown) (unknown) Leg worse compensating for foot positions (units unknown) (unknown) (unknown) (no date) (unknown) (unknown) Liver cancer (units unknown) (unknown) (unknown) (no date) (unknown) (unknown) Loc: [facility] (units unknown) (unknown) (unknown) (no date) (unknown) (unknown) Lumbar facet arthropathy (2013) (units unknown) (unknown) (unknown) (no date) (unknown) (unknown) Lumbar region somatic dysfunction (units unknown) (unknown) (unknown) (no date) (unknown) (unknown) Lung cancer (units unknown) (unknown) (unknown) (no date) (unknown) (unknown) Managing IBS a nd pernicious anemia with supplementation and dietary (units unknown) (unknown) (unknown) (no date) (unknown) (unknown) 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) (unknown) (unknown) (no date) (unknown) (unknown) Medical Histor y (Updated 03/03/23 @ 11:32 by Laura Parikh DO) (units unknown) (unknown) (unknown) (no date) (unknown) (unknown) Mother d Diabetes mellitus (units unknown) (unknown) (unknown) (no date) (unknown) (unknown) OMT per OSE to day, consider TPI (units unknown) (unknown) (unknown) (no date) (unknown) (unknown) Obesity (units unknown) (unknown) (unknown) (no date) (unknown) (unknown) Office Meds (units unknown) (unknown) (unknown) (no date) (unknown) (unknown) Orders (units unknown) (unknown) (unknown) (no date) (unknown) (unknown) Orders: (units unknown) (unknown) (unknown) (no date) (unknown) (unknown) Osteoarthritis (2012) (units unknown) (unknown) (unknown) (no date) (unknown) (unknown) Osteoporosis o f lumbar spine (units unknown) (unknown) (unknown) (no date) (unknown) (unknown) Osteoporosis (units unknown) (unknown) (unknown) (no date) (unknown) (unknown) Other Menstrua l Period: Postmenopausal (units unknown) (unknown) (unknown) (no date) (unknown) (unknown) Oxygen Deliver y Method room air (units unknown) (unknown) (unknown) (no date) (unknown) (unknown) PFSH (units unknown) (unknown) (unknown) (no date) (unknown) (unknown) PTSD (post-tra umatic stress disorder) (units unknown) (unknown) (unknown) (no date) (unknown) (unknown) Paronychia wit hout purulence. No target for drainage today. Continue soaking w (units unknown) (unknown) (unknown) (no date) (unknown) (unknown) Patient: Whitley Oakes MR#: M (units unknown) (unknown) (unknown) (no date) (unknown) (unknown) Pelvic somatic dysfunction (units unknown) (unknown) (unknown) (no date) (unknown) (unknown) Performing Pro vider: Laura Weeks, DO (units unknown) (unknown) (unknown) (no date) (unknown) (unknown) Pernicious anemia (u nits unknown) (unknown) (unknown) (no date) (unknown) (unknown) Personality disorder (units unknown) (unknown) (unknown) (no date) (unknown) (unknown) Plan (units unknown) (unknown) (unknown) (no date) (unknown) (unknown) Position Sitting (un its unknown) (unknown) (unknown) (no date) (unknown) (unknown) Pulse 90 (units unknown) (unknown) (unknown) (no date) (unknown) (unknown) Pulse Oximetry (%) 96 (units unknown) (unknown) (unknown) (no date) (unknown) (unknown) Pulse Source Monitor (units unknown) (unknown) (unknown) (no date) (unknown) (unknown) Qualified Code (s): K58.2 - Mixed irritable bowel syndrome (units unknown) (unknown) (unknown) (no date) (unknown) (unknown) Qualifiers: (units unknown) (unknown) (unknown) (no date) (unknown) (unknown) R great toe pain (un its unknown) (unknown) (unknown) (no date) (unknown) (unknown) RLS (restless legs syndrome) (units unknown) (unknown) (unknown) (no date) (unknown) (unknown) Reason For Visit (un its unknown) (unknown) (unknown) (no date) (unknown) (unknown) Right shoulder pain (units unknown) (unknown) (unknown) (no date) (unknown) (unknown) SWELLING (units unknown) (unknown) (unknown) (no date) (unknown) (unknown) Sacral region somatic dysfunction (units unknown) (unknown) (unknown) (no date) (unknown) (unknown) Sacroiliitis (2011) (units unknown) (unknown) (unknown) (no date) (unknown) (unknown) Seborrheic keratosis (units unknown) (unknown) (unknown) (no date) (unknown) (unknown) Seeing podiatr y and ortho, still not able to fully bear weight. Significant (units unknown) (unknown) (unknown) (no date) (unknown) (unknown) Shoulders and neck worse having to use wheel chair (units unknown) (unknown) (unknown) (no date) (unknown) (unknown) Signed By: (units unknown) (unknown) (unknown) (no date) (unknown) (unknown) Sinusitis loca tion: maxillary Qualified Code(s): J32.0 - Chronic (units unknown) (unknown) (unknown) (no date) (unknown) (unknown) Sister d Diabetes mellitus (units unknown) (unknown) (unknown) (no date) (unknown) (unknown) Smoking Status : Former smoker (units unknown) (unknown) (unknown) (no date) (unknown) (unknown) Status post colonoscopy (09/2019) (units unknown) (unknown) (unknown) (no date) (unknown) (unknown) Status post endoscopy (12/2019) (units unknown) (unknown) (unknown) (no date) (unknown) (unknown) Status post reduction mammoplasty (07/2010) (units unknown) (unknown) (unknown) (no date) (unknown) (unknown) Status: Acute (units unknown) (unknown) (unknown) (no date) (unknown) (unknown) Status: Chronic (uni ts unknown) (unknown) (unknown) (no date) (unknown) (unknown) Still unable t o bear weight but touching down for balance - seeing ortho 2 more (units unknown) (unknown) (unknown) (no date) (unknown) (unknown) Stroke (units unknown) (unknown) (unknown) (no date) (unknown) (unknown) Substance abuse (uni ts unknown) (unknown) (unknown) (no date) (unknown) (unknown) Surgical Histo ry (Updated 01/18/20 @ 15:38 by Summer Price DO) (units unknown) (unknown) (unknown) (no date) (unknown) (unknown) Temp 96.9 F L (units unknown) (unknown) (unknown) (no date) (unknown) (unknown) Temp Source Te mporal Artery Scan (units unknown) (unknown) (unknown) (no date) (unknown) (unknown) This note may have been all or partially generated using voice recognition (units unknown) (unknown) (unknown) (no date) (unknown) (unknown) Thoracic regio n somatic dysfunction (units unknown) (unknown) (unknown) (no date) (unknown) (unknown) Time Coding Mi nutes Spent: (must be on same date of service/appointment) (units unknown) (unknown) (unknown) (no date) (unknown) (unknown) Time Spent (units unknown) (unknown) (unknown) (no date) (unknown) (unknown) Tinnitus (units unknown) (unknown) (unknown) (no date) (unknown) (unknown) Tobacco + Subs tance Use (units unknown) (unknown) (unknown) (no date) (unknown) (unknown) Tobacco Status (unit s unknown) (unknown) (unknown) (no date) (unknown) (unknown) Total visit ti me apart from OMT 31 minutes today, including 21 minutes face to (units unknown) (unknown) (unknown) (no date) (unknown) (unknown) Tubular adenom a of colon (12/2014) (units unknown) (unknown) (unknown) (no date) (unknown) (unknown) Visit Reasons: OMT 04 (units unknown) (unknown) (unknown) (no date) (unknown) (unknown) Vitals (units unknown) (unknown) (unknown) (no date) (unknown) (unknown) Albert's (units unknown) (unknown) (unknown) (no date) (unknown) (unknown) _ (units unknown) (unknown) (unknown) (no date) (unknown) (unknown) (units unknown) (unknown) (unknown) (no date) (unknown) (unknown) albuterol [ALBUTEROL] Allergy (Unknown, Verified 01/26/23 11:45) (units unknown) (unknown) (unknown) (no date) (unknown) (unknown) also redness l ateral great toe cuticle, small pale spot (units unknown) (unknown) (unknown) (no date) (unknown) (unknown) bladder pain (units unknown) (unknown) (unknown) (no date) (unknown) (unknown) congestion and stomach problems (units unknown) (unknown) (unknown) (no date) (unknown) (unknown) coordinating care. ( units unknown) (unknown) (unknown) (no date) (unknown) (unknown) cyanocobalamin (vitamin B-12) (units unknown) (unknown) (unknown) (no date) (unknown) (unknown) dexamethasone Adverse Reaction (Severe, Verified 01/26/23 11:45) (units unknown) (unknown) (unknown) (no date) (unknown) (unknown) did comprehens cassy stool analysis through [facility] too (units unknown) (unknown) (unknown) (no date) (unknown) (unknown) did have SIBO breath through [facility] but unable to get results because was Dr (units unknown) (unknown) (unknown) (no date) (unknown) (unknown) energy depleti on as well as upper back, upper limb, neck pain re compensating (units unknown) (unknown) (unknown) (no date) (unknown) (unknown) epsom salt, fo llow with OTC antibacterial topical. Re-evaluate if worsening. (units unknown) (unknown) (unknown) (no date) (unknown) (unknown) extraarticular R calcaneal fracture on XR and CT, plan on limit weight bearing, (units unknown) (unknown) (unknown) (no date) (unknown) (unknown) face on histor y, exam, and counseling, and 10 minutes reviewing, charting, and (units unknown) (unknown) (unknown) (no date) (unknown) (unknown) folic acid (units unknown) (unknown) (unknown) (no date) (unknown) (unknown) for limited mobility. (units unknown) (unknown) (unknown) (no date) (unknown) (unknown) gastritis flares (un its unknown) (unknown) (unknown) (no date) (unknown) (unknown) gluten [GLUTEN ] Allergy (Unknown, Verified 01/26/23 11:45) (units unknown) (unknown) (unknown) (no date) (unknown) (unknown) gluten free vegan (u nits unknown) (unknown) (unknown) (no date) (unknown) (unknown) grass pollen A llergy (Severe, Verified 01/26/23 11:45) (units unknown) (unknown) (unknown) (no date) (unknown) (unknown) have occurred. If there are any questions, please contact the Medical Records (units unknown) (unknown) (unknown) (no date) (unknown) (unknown) hydromorphone [HYDROMORPHONE] Allergy (Mild, Verified 01/26/23 11:45) (units unknown) (unknown) (unknown) (no date) (unknown) (unknown) iodine and osmany enium for thyroid, rather than taking thyroid (units unknown) (unknown) (unknown) (no date) (unknown) (unknown) lithium [LITHI UM] Allergy (Unknown, Verified 01/26/23 11:45) (units unknown) (unknown) (unknown) (no date) (unknown) (unknown) m spasm low ba ck, more L than R (units unknown) (unknown) (unknown) (no date) (unknown) (unknown) magnesium (units unknown) (unknown) (unknown) (no date) (unknown) (unknown) maxillary sinusitis (units unknown) (unknown) (unknown) (no date) (unknown) (unknown) may occur. Occasional wrong-word or 'sound-alike' substitutions may have (units unknown) (unknown) (unknown) (no date) (unknown) (unknown) modifications. (unit s unknown) (unknown) (unknown) (no date) (unknown) (unknown) occurred due t o the inherent limitations of voice recognition software. Please (units unknown) (unknown) (unknown) (no date) (unknown) (unknown) polyneuropathies (un its unknown) (unknown) (unknown) (no date) (unknown) (unknown) read the note carefully and recognize, using context, where these substitutions (units unknown) (unknown) (unknown) (no date) (unknown) (unknown) mily palmer and brianna, recheck XR 1m. (units unknown) (unknown) (unknown) (no date) (unknown) (unknown) soaking w epso m salt, has OTC antibacterial (units unknown) (unknown) (unknown) (no date) (unknown) (unknown) software. Alth ough every effort is made to edit content, hand cell tuber errors (units unknown) (unknown) (unknown) (no date) (unknown) (unknown) tachycardia (units unknown) (unknown) (unknown) (no date) (unknown) (unknown) takes: (units unknown) (unknown) (unknown) (no date) (unknown) (unknown) vitamin C / ir on 125mg plant based (units unknown) (unknown) (unknown) (no date) (unknown) (unknown) vitamin D / K2 75400/100 (units unknown) (unknown) (unknown) (no date) (unknown) (unknown) wants ongoing B12 and needles, hoping to get a formulation without additive (units unknown) (unknown) (unknown) (no date) (unknown) (unknown) weeks (units unknown) (unknown) Result panel 53 (unknown) (no date) (unknown) (unknown) (no value) (units unknown) (unknown) (unknown) (no date) (unknown) (unknown) (1) Pathologic al fracture, right foot, sequela: (units unknown) (unknown) (unknown) (no date) (unknown) (unknown) (10) Somatic dysfunction of abdominal region: (units unknown) (unknown) (unknown) (no date) (unknown) (unknown) (11) Somatic dysfunction of rib region: (units unknown) (unknown) (unknown) (no date) (unknown) (unknown) (12) Somatic dysfunction of lower extremity: (units unknown) (unknown) (unknown) (no date) (unknown) (unknown) (13) Somatic dysfunction of upper extremity: (units unknown) (unknown) (unknown) (no date) (unknown) (unknown) (14) Paronychi a of great toe of right foot: (units unknown) (unknown) (unknown) (no date) (unknown) (unknown) (2) IBS (irrit able bowel syndrome): (units unknown) (unknown) (unknown) (no date) (unknown) (unknown) (3) Pernicious anemia: (units unknown) (unknown) (unknown) (no date) (unknown) (unknown) (4) Cranial so matic dysfunction: (units unknown) (unknown) (unknown) (no date) (unknown) (unknown) (5) Cervical s omatic dysfunction: (units unknown) (unknown) (unknown) (no date) (unknown) (unknown) (6) Thoracic r egion somatic dysfunction: (units unknown) (unknown) (unknown) (no date) (unknown) (unknown) (7) Lumbar reg ion somatic dysfunction: (units unknown) (unknown) (unknown) (no date) (unknown) (unknown) (8) Pelvic zoey atic dysfunction: (units unknown) (unknown) (unknown) (no date) (unknown) (unknown) (9) Sacral reg ion somatic dysfunction: (units unknown) (unknown) (unknown) (no date) (unknown) (unknown) [id number] (units unknown) (unknown) (unknown) (no date) (unknown) (unknown) 03/03/23 1734 (units unknown) (unknown) (unknown) (no date) (unknown) (unknown) 03/03/23 (units unknown) (unknown) (unknown) (no date) (unknown) (unknown) 1,000 mcg IM l eft deltoid [id number] 09/07/24 [id number] FRESENIUS KABI (units unknown) (unknown) (unknown) (no date) (unknown) (unknown) 11:03 (units unknown) (unknown) (unknown) (no date) (unknown) (unknown) 01/01/23 fall f rom step stool, saw ortho ([place]), mildly displaced (units unknown) (unknown) (unknown) (no date) (unknown) (unknown) 67 yo female presents today for OMT (units unknown) (unknown) (unknown) (no date) (unknown) (unknown) 7th day Confucianism (u nits unknown) (unknown) (unknown) (no date) (unknown) (unknown) Abdomen: magaly c ganglion restr (units unknown) (unknown) (unknown) (no date) (unknown) (unknown) Accompanied by : (units unknown) (unknown) (unknown) (no date) (unknown) (unknown) Acute pain of left shoulder (units unknown) (unknown) (unknown) (no date) (unknown) (unknown) Add'l Complaint: (un its unknown) (unknown) (unknown) (no date) (unknown) (unknown) Administered b y: Lani Benavides CMA on 03/03/23 11:53 (units unknown) (unknown) (unknown) (no date) (unknown) (unknown) Age/Sex: 67 / F Date of Service: (units unknown) (unknown) (unknown) (no date) (unknown) (unknown) Allergic react ion to grass pollen (units unknown) (unknown) (unknown) (no date) (unknown) (unknown) Allergic to cats (un its unknown) (unknown) (unknown) (no date) (unknown) (unknown) Allergies (units unknown) (unknown) (unknown) (no date) (unknown) (unknown) [place] [id number] (units unknown) (unknown) (unknown) (no date) (unknown) (unknown) Anesthesia (units unknown) (unknown) (unknown) (no date) (unknown) (unknown) Angina pectoris (uni ts unknown) (unknown) (unknown) (no date) (unknown) (unknown) Ankle pain, ch ronic (2014) (units unknown) (unknown) (unknown) (no date) (unknown) (unknown) Ankle pain, chronic (units unknown) (unknown) (unknown) (no date) (unknown) (unknown) Anxiety (units unknown) (unknown) (unknown) (no date) (unknown) (unknown) Assessment + Plan (u nits unknown) (unknown) (unknown) (no date) (unknown) (unknown) Attending Dr: Laura Parikh DElliottOElliott (units unknown) (unknown) (unknown) (no date) (unknown) (unknown) B12 (Cyanocoba l) Injection Today E53.9 - Vitamin B deficiency, unspecified (units unknown) (unknown) (unknown) (no date) (unknown) (unknown) B12 (IM after failing high dose sublingual) for occipital neuralgia, as well as (units unknown) (unknown) (unknown) (no date) (unknown) (unknown) BLT, MFR, cranial (u nits unknown) (unknown) (unknown) (no date) (unknown) (unknown) BP 136/84 (units unknown) (unknown) (unknown) (no date) (unknown) (unknown) Billing- OMT Therapy: OMT 9-10 Body Regions- [id number] (units unknown) (unknown) (unknown) (no date) (unknown) (unknown) Bipolar disorder (un its unknown) (unknown) (unknown) (no date) (unknown) (unknown) Blood Pressure Location Lt brachial (units unknown) (unknown) (unknown) (no date) (unknown) (unknown) Brain cancer (units unknown) (unknown) (unknown) (no date) (unknown) (unknown) Broke R foot, very painful, still not weight bearing. Seeing ortho and podiatry. (units unknown) (unknown) (unknown) (no date) (unknown) (unknown) Cervical somat ic dysfunction (units unknown) (unknown) (unknown) (no date) (unknown) (unknown) Cervical: C4 FRSL ? (units unknown) (unknown) (unknown) (no date) (unknown) (unknown) Chicken pox (units unknown) (unknown) (unknown) (no date) (unknown) (unknown) Chief Complaint (uni ts unknown) (unknown) (unknown) (no date) (unknown) (unknown) Chief Complain t: multiple pain complaints (units unknown) (unknown) (unknown) (no date) (unknown) (unknown) Child Age: 34 Hx of appendectomy (units unknown) (unknown) (unknown) (no date) (unknown) (unknown) Child Age: 37 Penicillin allergy (units unknown) (unknown) (unknown) (no date) (unknown) (unknown) Child Age: 46 Hay fever (units unknown) (unknown) (unknown) (no date) (unknown) (unknown) 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 (units unknown) (unknown) (unknown) (no date) (unknown) (unknown) Chronic left-s ided thoracic back pain (units unknown) (unknown) (unknown) (no date) (unknown) (unknown) 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) (units unknown) (unknown) (unknown) (no date) (unknown) (unknown) Compression fr acture of body of thoracic vertebra () (units unknown) (unknown) (unknown) (no date) (unknown) (unknown) Cranial somati c dysfunction (units unknown) (unknown) (unknown) (no date) (unknown) (unknown) DAIRY Allergy (Intermediate, Uncoded 01/26/23 11:45) (units unknown) (unknown) (unknown) (no date) (unknown) (unknown) : 4 Acct:[id number] (units unknown) (unknown) (unknown) (no date) (unknown) (unknown) Depression (09/21/14) (units unknown) (unknown) (unknown) (no date) (unknown) (unknown) Depression (units unknown) (unknown) (unknown) (no date) (unknown) (unknown) Dept at . (units unknown) (unknown) (unknown) (no date) (unknown) (unknown) Details: (units unknown) (unknown) (unknown) (no date) (unknown) (unknown) Documented By: Laura Parikh D.O. 03/03/23 1102 (units unknown) (unknown) (unknown) (no date) (unknown) (unknown) Dose Route Adm in Location Lot Number Expiration Date NDC (units unknown) (unknown) (unknown) (no date) (unknown) (unknown) Environmental allergies (units unknown) (unknown) (unknown) (no date) (unknown) (unknown) Esophageal stricture (units unknown) (unknown) (unknown) (no date) (unknown) (unknown) Esophagitis (units unknown) (unknown) (unknown) (no date) (unknown) (unknown) Exam Narrative (unit s unknown) (unknown) (unknown) (no date) (unknown) (unknown) Exam Narrative: (uni ts unknown) (unknown) (unknown) (no date) (unknown) (unknown) Exam (units unknown) (unknown) (unknown) (no date) (unknown) (unknown) Extr: R great toe with erythema adjacent to lateral nail, no purulence or (units unknown) (unknown) (unknown) (no date) (unknown) (unknown) Family History (Updated 06/08/18 @ 12:37 by Rabia Jacob) (units unknown) (unknown) (unknown) (no date) (unknown) (unknown) Family Practic e Office Visit (units unknown) (unknown) (unknown) (no date) (unknown) (unknown) Fibromyalgia (units unknown) (unknown) (unknown) (no date) (unknown) (unknown) [facility] (units unknown) (unknown) (unknown) (no date) (unknown) (unknown) Foot pain (2011) (un its unknown) (unknown) (unknown) (no date) (unknown) (unknown) Gastropathy (units unknown) (unknown) (unknown) (no date) (unknown) (unknown) General: pleas ant, cooperative, +central adiposity, sitting comfortably in no (units unknown) (unknown) (unknown) (no date) (unknown) (unknown) Gets relief with OMT (units unknown) (unknown) (unknown) (no date) (unknown) (unknown) Grandmother Di abetes mellitus (units unknown) (unknown) (unknown) (no date) (unknown) (unknown) HPI (units unknown) (unknown) (unknown) (no date) (unknown) (unknown) Hayfever (units unknown) (unknown) (unknown) (no date) (unknown) (unknown) Head: b/l OM r estr, SBS compr (units unknown) (unknown) (unknown) (no date) (unknown) (unknown) Heart disease (units unknown) (unknown) (unknown) (no date) (unknown) (unknown) Height 5 ft 3.5 in ( units unknown) (unknown) (unknown) (no date) (unknown) (unknown) Hemorrhoids (units unknown) (unknown) (unknown) (no date) (unknown) (unknown) Hiatal hernia (units unknown) (unknown) (unknown) (no date) (unknown) (unknown) High cholesterol (un its unknown) (unknown) (unknown) (no date) (unknown) (unknown) History of candice betes mellitus (units unknown) (unknown) (unknown) (no date) (unknown) (unknown) History of fundoplication (units unknown) (unknown) (unknown) (no date) (unknown) (unknown) History of rep air of hiatal hernia (11/2011) (units unknown) (unknown) (unknown) (no date) (unknown) (unknown) History of tonsillectomy (1971) (units unknown) (unknown) (unknown) (no date) (unknown) (unknown) Hives (units unknown) (unknown) (unknown) (no date) (unknown) (unknown) Hypertension (units unknown) (unknown) (unknown) (no date) (unknown) (unknown) Hypothyroidism (unit s unknown) (unknown) (unknown) (no date) (unknown) (unknown) IBS (irritable bowel syndrome) (units unknown) (unknown) (unknown) (no date) (unknown) (unknown) 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 unknown) (unknown) (unknown) (no date) (unknown) (unknown) Informed conse nt given: Yes (units unknown) (unknown) (unknown) (no date) (unknown) (unknown) Intake Note: (units unknown) (unknown) (unknown) (no date) (unknown) (unknown) Intake perform ed by: Lani Benavides (units unknown) (unknown) (unknown) (no date) (unknown) (unknown) Intake (units unknown) (unknown) (unknown) (no date) (unknown) (unknown) Intake- Kasie carmichael Staff (units unknown) (unknown) (unknown) (no date) (unknown) (unknown) Irritable julien l syndrome type: with both diarrhea and constipation (units unknown) (unknown) (unknown) (no date) (unknown) (unknown) Last Menstural Cycle + Details (units unknown) (unknown) (unknown) (no date) (unknown) (unknown) Leg worse compensating for foot positions (units unknown) (unknown) (unknown) (no date) (unknown) (unknown) Liver cancer (units unknown) (unknown) (unknown) (no date) (unknown) (unknown) Loc: [facility] (units unknown) (unknown) (unknown) (no date) (unknown) (unknown) Lower extremit ies: R FH ant (units unknown) (unknown) (unknown) (no date) (unknown) (unknown) Lumbar facet arthropathy (2013) (units unknown) (unknown) (unknown) (no date) (unknown) (unknown) Lumbar region somatic dysfunction (units unknown) (unknown) (unknown) (no date) (unknown) (unknown) Lumbar: L1 FRSR (uni ts unknown) (unknown) (unknown) (no date) (unknown) (unknown) Lung cancer (units unknown) (unknown) (unknown) (no date) (unknown) (unknown) Managing IBS a nd pernicious anemia with supplementation and dietary (units unknown) (unknown) (unknown) (no date) (unknown) (unknown) 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) (unknown) (unknown) (no date) (unknown) (unknown) Medical Histor y (Updated 03/03/23 @ 11:32 by Laura Parikh DO) (units unknown) (unknown) (unknown) (no date) (unknown) (unknown) Mother d Diabetes mellitus (units unknown) (unknown) (unknown) (no date) (unknown) (unknown) Neuro: alert a nd oriented to person and situation (units unknown) (unknown) (unknown) (no date) (unknown) (unknown) OMM Procedure Notes: (units unknown) (unknown) (unknown) (no date) (unknown) (unknown) OMT per OSE to day, consider TPI (units unknown) (unknown) (unknown) (no date) (unknown) (unknown) Obesity (units unknown) (unknown) (unknown) (no date) (unknown) (unknown) Office Meds (units unknown) (unknown) (unknown) (no date) (unknown) (unknown) Office Procedures (u nits unknown) (unknown) (unknown) (no date) (unknown) (unknown) Orders (units unknown) (unknown) (unknown) (no date) (unknown) (unknown) Orders: (units unknown) (unknown) (unknown) (no date) (unknown) (unknown) Osteoarthritis (2011) (units unknown) (unknown) (unknown) (no date) (unknown) (unknown) Osteopathic Structural Exam: (units unknown) (unknown) (unknown) (no date) (unknown) (unknown) Osteoporosis o f lumbar spine (units unknown) (unknown) (unknown) (no date) (unknown) (unknown) Osteoporosis (units unknown) (unknown) (unknown) (no date) (unknown) (unknown) Other Menstrua l Period: Postmenopausal (units unknown) (unknown) (unknown) (no date) (unknown) (unknown) Oxygen Deliver y Method room air (units unknown) (unknown) (unknown) (no date) (unknown) (unknown) PFSH (units unknown) (unknown) (unknown) (no date) (unknown) (unknown) PTSD (post-tra umatic stress disorder) (units unknown) (unknown) (unknown) (no date) (unknown) (unknown) Paronychia wit hout purulence. No target for drainage today. Continue soaking w (units unknown) (unknown) (unknown) (no date) (unknown) (unknown) Patient: Whitley Oakes MR#: M (units unknown) (unknown) (unknown) (no date) (unknown) (unknown) Pelvic somatic dysfunction (units unknown) (unknown) (unknown) (no date) (unknown) (unknown) Pelvis: L ant (units unknown) (unknown) (unknown) (no date) (unknown) (unknown) Performing Pro vider: Laura Pairkh DO (units unknown) (unknown) (unknown) (no date) (unknown) (unknown) Pernicious anemia (u nits unknown) (unknown) (unknown) (no date) (unknown) (unknown) Personality disorder (units unknown) (unknown) (unknown) (no date) (unknown) (unknown) Plan (units unknown) (unknown) (unknown) (no date) (unknown) (unknown) Position Sitting (un its unknown) (unknown) (unknown) (no date) (unknown) (unknown) Psych: well ke mpt, speech and movement normal, normal affect (units unknown) (unknown) (unknown) (no date) (unknown) (unknown) Pulse 90 (units unknown) (unknown) (unknown) (no date) (unknown) (unknown) Pulse Oximetry (%) 96 (units unknown) (unknown) (unknown) (no date) (unknown) (unknown) Pulse Source Monitor (units unknown) (unknown) (unknown) (no date) (unknown) (unknown) Qualified Code (s): K58.2 - Mixed irritable bowel syndrome (units unknown) (unknown) (unknown) (no date) (unknown) (unknown) Qualifiers: (units unknown) (unknown) (unknown) (no date) (unknown) (unknown) R great toe pain (un its unknown) (unknown) (unknown) (no date) (unknown) (unknown) RLS (restless legs syndrome) (units unknown) (unknown) (unknown) (no date) (unknown) (unknown) Reason For Visit (un its unknown) (unknown) (unknown) (no date) (unknown) (unknown) Resp: normal e ffort, able to speak in complete sentences (units unknown) (unknown) (unknown) (no date) (unknown) (unknown) Ribcage: R2-3 post, b/l 12 exh (units unknown) (unknown) (unknown) (no date) (unknown) (unknown) Right shoulder pain (units unknown) (unknown) (unknown) (no date) (unknown) (unknown) SWELLING (units unknown) (unknown) (unknown) (no date) (unknown) (unknown) Sacral region somatic dysfunction (units unknown) (unknown) (unknown) (no date) (unknown) (unknown) Sacroiliitis (2012) (units unknown) (unknown) (unknown) (no date) (unknown) (unknown) Sacrum: b/l F, L>R SI restr (units unknown) (unknown) (unknown) (no date) (unknown) (unknown) Seborrheic keratosis (units unknown) (unknown) (unknown) (no date) (unknown) (unknown) Seeing podiatr y and ortho, still not able to fully bear weight. Significant (units unknown) (unknown) (unknown) (no date) (unknown) (unknown) Shoulders and neck worse having to use wheel chair (units unknown) (unknown) (unknown) (no date) (unknown) (unknown) Signed By: <Electronically signed by Laura Parikh D.O.> (units unknown) (unknown) (unknown) (no date) (unknown) (unknown) Signed (units unknown) (unknown) (unknown) (no date) (unknown) (unknown) Sister d Diabetes mellitus (units unknown) (unknown) (unknown) (no date) (unknown) (unknown) Smoking Status : Former smoker (units unknown) (unknown) (unknown) (no date) (unknown) (unknown) Status post colonoscopy (09/2019) (units unknown) (unknown) (unknown) (no date) (unknown) (unknown) Status post endoscopy (12/2019) (units unknown) (unknown) (unknown) (no date) (unknown) (unknown) Status post reduction mammoplasty (07/2010) (units unknown) (unknown) (unknown) (no date) (unknown) (unknown) Status: Acute (units unknown) (unknown) (unknown) (no date) (unknown) (unknown) Status: Chronic (uni ts unknown) (unknown) (unknown) (no date) (unknown) (unknown) Still unable t o bear weight but touching down for balance - seeing ortho 2 more (units unknown) (unknown) (unknown) (no date) (unknown) (unknown) Stroke (units unknown) (unknown) (unknown) (no date) (unknown) (unknown) Substance abuse (uni ts unknown) (unknown) (unknown) (no date) (unknown) (unknown) Surgical Histo ry (Updated 01/18/20 @ 15:38 by Summer Price DO) (units unknown) (unknown) (unknown) (no date) (unknown) (unknown) Temp 96.9 F L (units unknown) (unknown) (unknown) (no date) (unknown) (unknown) Temp Source Te mporal Artery Scan (units unknown) (unknown) (unknown) (no date) (unknown) (unknown) This note may have been all or partially generated using voice recognition (units unknown) (unknown) (unknown) (no date) (unknown) (unknown) Thoracic regio n somatic dysfunction (units unknown) (unknown) (unknown) (no date) (unknown) (unknown) 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, T7 FRSR (units unknown) (unknown) (unknown) (no date) (unknown) (unknown) Time Coding Mi nutes Spent: (must be on same date of service/appointment) (units unknown) (unknown) (unknown) (no date) (unknown) (unknown) Time Spent (units unknown) (unknown) (unknown) (no date) (unknown) (unknown) Tinnitus (units unknown) (unknown) (unknown) (no date) (unknown) (unknown) Tobacco + Subs tance Use (units unknown) (unknown) (unknown) (no date) (unknown) (unknown) Tobacco Status (unit s unknown) (unknown) (unknown) (no date) (unknown) (unknown) Total visit ti me apart from OMT 31 minutes today, including 21 minutes face to (units unknown) (unknown) (unknown) (no date) (unknown) (unknown) Tubular adenom a of colon (12/2014) (units unknown) (unknown) (unknown) (no date) (unknown) (unknown) Upper extremit ies: b/l scapulothoracic restr and levator scap htn (units unknown) (unknown) (unknown) (no date) (unknown) (unknown) Visit Reasons: OMT 04 (units unknown) (unknown) (unknown) (no date) (unknown) (unknown) Vitals (units unknown) (unknown) (unknown) (no date) (unknown) (unknown) Albert's (units unknown) (unknown) (unknown) (no date) (unknown) (unknown) _ (units unknown) (unknown) (unknown) (no date) (unknown) (unknown) (units unknown) (unknown) (unknown) (no date) (unknown) (unknown) acute distress , has crutch for ambulation (units unknown) (unknown) (unknown) (no date) (unknown) (unknown) albuterol [ALBUTEROL] Allergy (Unknown, Verified 01/26/23 11:45) (units unknown) (unknown) (unknown) (no date) (unknown) (unknown) also redness l ateral great toe cuticle, small pale spot (units unknown) (unknown) (unknown) (no date) (unknown) (unknown) bladder pain (units unknown) (unknown) (unknown) (no date) (unknown) (unknown) congestion and stomach problems (units unknown) (unknown) (unknown) (no date) (unknown) (unknown) coordinating care. ( units unknown) (unknown) (unknown) (no date) (unknown) (unknown) cyanocobalamin (vitamin B-12) (units unknown) (unknown) (unknown) (no date) (unknown) (unknown) dexamethasone Adverse Reaction (Severe, Verified 01/26/23 11:45) (units unknown) (unknown) (unknown) (no date) (unknown) (unknown) did comprehens cassy stool analysis through [facility] too (units unknown) (unknown) (unknown) (no date) (unknown) (unknown) did have SIBO breath through [facility] but unable to get results because was Dr (units unknown) (unknown) (unknown) (no date) (unknown) (unknown) energy depleti on as well as upper back, upper limb, neck pain re compensating (units unknown) (unknown) (unknown) (no date) (unknown) (unknown) epsom salt, fo llow with OTC antibacterial topical. Re-evaluate if worsening. (units unknown) (unknown) (unknown) (no date) (unknown) (unknown) extraarticular R calcaneal fracture on XR and CT, plan on limit weight bearing, (units unknown) (unknown) (unknown) (no date) (unknown) (unknown) face on histor y, exam, and counseling, and 10 minutes reviewing, charting, and (units unknown) (unknown) (unknown) (no date) (unknown) (unknown) fluctuance. (units unknown) (unknown) (unknown) (no date) (unknown) (unknown) folic acid (units unknown) (unknown) (unknown) (no date) (unknown) (unknown) for limited mobility. (units unknown) (unknown) (unknown) (no date) (unknown) (unknown) gastritis flares (un its unknown) (unknown) (unknown) (no date) (unknown) (unknown) gluten [GLUTEN ] Allergy (Unknown, Verified 01/26/23 11:45) (units unknown) (unknown) (unknown) (no date) (unknown) (unknown) gluten free vegan (u nits unknown) (unknown) (unknown) (no date) (unknown) (unknown) grass pollen A llergy (Severe, Verified 01/26/23 11:45) (units unknown) (unknown) (unknown) (no date) (unknown) (unknown) have occurred. If there are any questions, please contact the Medical Records (units unknown) (unknown) (unknown) (no date) (unknown) (unknown) hydromorphone [HYDROMORPHONE] Allergy (Mild, Verified 01/26/23 11:45) (units unknown) (unknown) (unknown) (no date) (unknown) (unknown) iodine and osmany enium for thyroid, rather than taking thyroid (units unknown) (unknown) (unknown) (no date) (unknown) (unknown) lithium [LITHI UM] Allergy (Unknown, Verified 01/26/23 11:45) (units unknown) (unknown) (unknown) (no date) (unknown) (unknown) m spasm low ba ck, more L than R (units unknown) (unknown) (unknown) (no date) (unknown) (unknown) magnesium (units unknown) (unknown) (unknown) (no date) (unknown) (unknown) may occur. Occasional wrong-word or 'sound-alike' substitutions may have (units unknown) (unknown) (unknown) (no date) (unknown) (unknown) modifications. (unit s unknown) (unknown) (unknown) (no date) (unknown) (unknown) occurred due t o the inherent limitations of voice recognition software. Please (units unknown) (unknown) (unknown) (no date) (unknown) (unknown) polyneuropathies (un its unknown) (unknown) (unknown) (no date) (unknown) (unknown) read the note carefully and recognize, using context, where these substitutions (units unknown) (unknown) (unknown) (no date) (unknown) (unknown) mily stover, recheck XR 1m. (units unknown) (unknown) (unknown) (no date) (unknown) (unknown) soaking w epso m salt, has OTC antibacterial (units unknown) (unknown) (unknown) (no date) (unknown) (unknown) software. Alth ough every effort is made to edit content, hand cell tuber errors (units unknown) (unknown) (unknown) (no date) (unknown) (unknown) tachycardia (units unknown) (unknown) (unknown) (no date) (unknown) (unknown) takes: (units unknown) (unknown) (unknown) (no date) (unknown) (unknown) vitamin C / ir on 125mg plant based (units unknown) (unknown) (unknown) (no date) (unknown) (unknown) vitamin D / K2 26400/100 (units unknown) (unknown) (unknown) (no date) (unknown) (unknown) wants ongoing B12 and needles, hoping to get a formulation without additive (units unknown) (unknown) (unknown) (no date) (unknown) (unknown) weeks (units unknown) (unknown) Social History date description facility 2023-01-26 00:00 Ex-smoker (finding) [facility] 2023-02-09 00:00 Ex-smoker (finding) [facility] 2023-03-03 00:00 Ex-smoker (finding) [facility] Vital Signs date measurement value units 2023-01-26 00:00 BP_diastolic 88 mmHg 2023-01-26 00:00 BP_diastolic 94 mmHg 2023-01-26 00:00 BP_systolic 170 mmHg 2023-01-26 00:00 BP_systolic 180 mmHg 2023-01-26 00:00 heart_rate 111 /min 2023-01-26 00:00 heart_rate 97 /min 2023-01-26 00:00 height_metric 161.29 cm 2023-01-26 00:00 height_standard 63.5 in 2023-01-26 00:00 o2_saturation 97 % 2023-01-26 00:00 o2_saturation 98 % 2023-01-26 00:00 temperature_metric 36 C 2023-01-26 00:00 temperature_standard 96.8 F 2023-02-09 00:00 BP_diastolic 80 mmHg 2023-02-09 00:00 BP_systolic 134 mmHg 2023-02-09 00:00 heart_rate 101 /min 2023-02-09 00:00 height_metric 161.29 cm 2023-02-09 00:00 height_standard 63.5 in 2023-02-09 00:00 o2_saturation 98 % 2023-02-09 00:00 temperature_metric 36.06 C 2023-02-09 00:00 temperature_standard 96.9 F 2023-03-03 00:00 BP_diastolic 84 mmHg 2023-03-03 00:00 BP_systolic 136 mmHg 2023-03-03 00:00 heart_rate 90 /min 2023-03-03 00:00 height_metric 161.29 cm 2023-03-03 00:00 height_standard 63.5 in 2023-03-03 00:00 o2_saturation 96 % 2023-03-03 00:00 temperature_metric 36.06 C 2023-03-03 00:00 temperature_standard 96.9 F
--- NOTE | 2023-03-25 14:48 | ED Physician Documentation ---
PD HPI Fall - Stated complaint Stated Complaint: GLF,LT SIDE BACK PX - Chief complaint Chief Complaint: Back Pain - History obtained from History obtained from: Patient - History of Present Illness Mechanism of injury: Tripped, Lost balance Fall distance: Standing position Where injury occurred: Home Timing - onset: Today Injury(ies) location: Chest, Back, Other (lost balance and fell striking left posterolateral chest against door jam. Pain in ribs and back.). 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: Breast reduction HEENT: Tonsil/Adenoidectomy - Present Medications Home Medications: Ambulatory Orders Medication Instructions Recorded Confirmed Cyclobenzaprine [Flexeril] 10 mg PO PRN PRN 12/15/14 05/05/21 Cholecalciferol (Vitamin D3) 1,000 unit PO DAILY 10/14/16 05/05/21 [Vitamin D3] Cyanocobalamin (Vitamin B-12) 1,000 mcg PO DAILY 10/14/16 05/05/21 [Vitamin B-12] Red Marine Algae 0 10/14/16 Cyclobenzaprine [Flexeril] 10 mg PO TID PRN #14 tablet 04/23/20 05/05/21 tiZANidine [Zanaflex] 4 mg PO Q8H PRN #25 tablet 01/07/21 05/05/21 clonazePAM [Clonazepam] 1 tab PO DAILY 05/05/21 05/05/21 Acetaminophen/Cod 300/30 [Tylenol 1 each PO Q4-6H PRN #30 tablet 01/01/23 #3] methocarbamoL [Robaxin] 500 mg PO Q6H PRN #30 tablet 03/25/23 - Allergies Allergies/Adverse Reactions: Allergies Allergy/AdvReac Type Severity Reaction Status Date / Time lithium [Booth] Allergy Severe swelling Verified 03/25/23 14:27 albuterol Allergy Intermediate tachycardia Verified 03/25/23 14:27 hydromorphone HCl * Allergy Mild itchy Verified 03/25/23 14:27 [From Dilaudid] gluten Allergy Unknown Verified 03/25/23 14:27 peanut Allergy Unknown Verified 03/25/23 14:27 sesame seed Allergy Unknown Verified 03/25/23 14:27 wheat Allergy Unknown Verified 03/25/23 14:27 hydrocodone AdvReac Itching Verified 03/25/23 14:27 oxycodone AdvReac Itching Verified 03/25/23 14:27 dairy Allergy Unknown Uncoded 03/25/23 14:27 - Social History Does the pt smoke?: No Smoking Status: Never smoker Does the pt drink ETOH?: No Does the pt have substance abuse?: Yes - Immunizations Immunizations are current?: Yes - POLST Patient has POLST: No PD ED PE NORMAL - Vitals Vital signs reviewed: Yes - General General: Alert and oriented X 3, No acute distress, Well developed/nourished - HEENT HEENT: Atraumatic - Neck Neck: Supple, no meningeal sign, No bony TTP - Cardiac Cardiac: RRR, No murmur - Respiratory Respiratory: Clear bilaterally - Abdomen Abdomen: Soft, Non tender - Back Back: Other (tender in scapular line at scapula and ribs just below without crepitance. Some pain to percussion mid to lower thoracic back. ) - Derm Derm: Normal color, Warm and dry - Neuro Neuro: Alert and oriented X 3, No motor deficit, Normal speech Results - Vitals Vitals: Vital Signs - 24 hr 03/25/23 03/25/23 14:19 16:29 Temperature 37.0 C Heart Rate 101 H 94 Respiratory 16 18 Rate Blood Pressure 149/67 H 137/61 H O2 Saturation 96 100 Oxygen O2 Source Room air - Rads (name of study) chest CT without contrast Relevant Findings:: Prelim report reviewed (prior T7 comressive deformity without change. No new spine bony injury.), See rad report PD Medical Decision Making - ED course Complexity details: considered differential (fall and has history of osteopenia, prior thoracic compression fx and is having pain left posterior mid ribs but also mid spine area. xray not accurate enough. Will get CT. Low suspicion for organ injury, so can get noncontrast. ), d/w patient Departure - Departure Disposition: 01 Home, Self Care Clinical Impression: Accidental fall Qualifiers: Encounter type: initial encounter Qualified Code(s): W19.XXXA - Unspecified fall, initial encounter Chest wall contusion Qualifiers: Encounter type: initial encounter Laterality: left Qualified Code(s): S20.212A - Contusion of left front wall of thorax, initial encounter Condition: Stable Record reviewed to determine appropriate education?: Yes Follow-Up: JORGITO DORADO DO [Primary Care Provider] - Prescriptions: methocarbamoL [Robaxin] 500 mg PO Q6H PRN #30 tablet PRN Reason: Spasms Comments: Your CT scan does not show any obvious lung injury. There is no rib fractures noted. No new spine injuries. The chronic appearing T7 compression fracture is noted. It is good that you do not have any broken ribs or spine injury. Obviously falling like this can flareup your ongoing back pain. The pain and tenderness along the ribs area is soft tissue and not broken ribs so should get better in the shorter-term. Continue usual medications. Add Robaxin/methocarbamol muscle relaxant 4 times daily if needed. I sent a prescription to the [facility] pharmacy here in [place]. Discharge Date/Time: 03/25/23 16:31
[2023-03-25] MEDS ORDERED: methocarbamoL 500 MG TABLET PO STA (15:06)
[2023-03-25] MEDS ORDERED: ACETAMINOPHEN/CODEINE 300 MG/30 MG TABLET PO STA (15:07)
--- NOTE | 2023-03-25 16:01 | CT Report ---
PROCEDURE: CHEST WO INDICATIONS: fall, struck left chest/spine area. Pain TECHNIQUE: Noncontrast 1mm axial images were acquired from the pulmonary apices to the posterior costophrenic an gles. Axial 5 mm soft tissue kernel reconstructions were performed as well as 8 mm axial MIP and cor onal and sagittal 5 mm reformations. For radiation dose reduction, the following was used: automate d exposure control, adjustment of mA and/or kV according to patient size. COMPARISON: CT 01/20/2018 FINDINGS: Image quality: Excellent. Lungs and pleura: No consolidation. No pleural effusions. No pneumothorax. No suspicious pulmonary n odules which require follow up. Mediastinum: Heart size is normal. No pericardial effusions. No mediastinal adenopathy by size criter ia. No large vessel abnormality. Marked coronary calcifications for age. Small hiatal hernia. Chest wall and lower neck: Thyroid is unremarkable. No axillary or supraclavicular adenopathy by size . Bones: No aggressive osseous abnormality. Chronic T7 compression deformities at endplate retropulsion ; this is new since 2018. Upper Abdomen: Unremarkable. IMPRESSION: No acute, displaced fractures, pneumothorax or pulmonary contusion. Chronic appearing T7 compression deformity without endplate retropulsion. Marked coronary artery calcifications for age. Consider cardiology referral. Reviewed by: Emerson Weinstein on 03/25/2023 3:59 PM PDT Approved by: Emerson Weinstein on 03/25/2023 3:59 PM PDT Station ID: [id number]
[2023-03-25 16:32] VITALS: BP 137/61
== END 2023-03-25 16:31 | disposition home or self-care (01) ==
LOC: ED 14:03
DX: S20.212A Contusion of left front wall of thorax, initial encounter (principal); E03.9 Hypothyroidism, unspecified; W01.198A Fall on same level from slipping, tripping and stumbling with subsequent striking against other object, initial encounter; Y92.009 Unspecified place in unspecified non-institutional (private) residence as the place of occurrence of the external cause
CPT/HCPCS: 71250; 99283; 99284; A9270

== ENCOUNTER 2023-09-18 16:44 | Emergency (ER) | payer MEDICARE, MEDICAID ==
[2023-09-18] MEDS ORDERED: KETOROLAC 60 MG/2 ML VIAL IM STA (17:19)
--- NOTE | 2023-09-18 18:11 | ED Physician Documentation ---
History of Present Illness - Stated complaint Stated Complaint: BACK PX/MUSCLE SPASMS - Chief complaint Chief Complaint: Back Pain - History obtained from History obtained from: Patient - History of Present Illness Pain level max: 6 Pain level now: 5 - Additonal information Additional information: Patient is a 68-year-old female who presents to the emergency department with mid back pain and "muscle spasms". She states that this started earlier today. Does not recall any injury but states that she does have osteoporosis and has freitas d spinal fractures in the past. She believes that she has an old fracture at T5-T6. She took a half dose of Tylenol 3 and a half dose of tizanidine that she has at home she states that this helped but she is still having pain so came in to be evaluated. Denies any trauma. No loss of bowel or bladder control. 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 : None HEENT: Other Psych: Anxiety Musculoskeletal: None Derm: None - Past Surgical History Past Surgical History: Yes General: Hiatal hernia repair, 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: Breast 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 HEENT: Tonsil/Adenoidectomy - Present Medications Home Medications: Ambulatory Orders Medication Instructions Recorded Confirmed Cyclobenzaprine [Flexeril] 10 mg PO PRN PRN 12/15/14 05/05/21 Cholecalciferol (Vitamin D3) 1,000 unit PO DAILY 10/14/16 05/05/21 [Vitamin D3] Cyanocobalamin (Vitamin B-12) 1,000 mcg PO DAILY 10/14/16 05/05/21 [Vitamin B-12] Red Marine Algae 0 10/14/16 Cyclobenzaprine [Flexeril] 10 mg PO TID PRN #14 tablet 04/23/20 05/05/21 tiZANidine [Zanaflex] 4 mg PO Q8H PRN #25 tablet 01/07/21 05/05/21 clonazePAM [Clonazepam] 1 tab PO DAILY 05/05/21 05/05/21 Acetaminophen/Cod 300/30 [Tylenol 1 each PO Q4-6H PRN #30 tablet 01/01/23 #3] methocarbamoL [Robaxin] 500 mg PO Q6H PRN #30 tablet 03/25/23 Cyclobenzaprine [Flexeril] 10 mg PO TID PRN #20 tablet 09/18/23 - Allergies Allergies/Adverse Reactions: Allergies Allergy/AdvReac Type Severity Reaction Status Date / Time lithium [Pavo] Allergy Severe swelling Verified 03/25/23 14:27 albuterol Allergy Intermediate tachycardia Verified 03/25/23 14:27 hydromorphone HCl * Allergy Mild itchy Verified 03/25/23 14:27 [From Dilaudid] gluten Allergy Unknown Verified 03/25/23 14:27 peanut Allergy Unknown Verified 03/25/23 14:27 sesame seed Allergy Unknown Verified 03/25/23 14:27 wheat Allergy Unknown Verified 03/25/23 14:27 hydrocodone AdvReac Itching Verified 03/25/23 14:27 oxycodone AdvReac Itching Verified 03/25/23 14:27 dairy Allergy Unknown Uncoded 03/25/23 14:27 - Social History Does the pt smoke?: No Smoking Status: Never smoker Does the pt drink ETOH?: No Does the pt have substance abuse?: Yes - Immunizations Immunizations are current?: Yes - POLST Patient has POLST: No PD ED PE NORMAL - Vitals Vital signs reviewed: Yes - General General: Alert and oriented X 3, No acute distress - HEENT HEENT: Atraumatic, PERRL, Moist mucous membranes, Pharynx benign - Neck Neck: Supple, no meningeal sign, No bony TTP - Cardiac Cardiac: RRR, Strong equal pulses - Respiratory Respiratory: No respiratory distress, Clear bilaterally - Abdomen Abdomen: Soft, Non tender, Non distended - Back Back: Other (Mild tenderness to palpation in the lower thoracic spine and upper lumbar spine. No step-off or deformity. No skin changes. Neurovascularly intact.) - Derm Derm: Warm and dry, No rash - Extremities Extremities: No deformity, No edema - Neuro Neuro: Alert and oriented X 3, No motor deficit, No sensory deficit, Other (Normal bilateral lower extremity patellar and ankle jerk reflexes. Normal great toe extension bilaterally. no saddle anesthesia) - Psych Psych: Normal mood, Normal affect Results - Vitals Vitals: Vital Signs - 24 hr 09/18/23 09/18/23 16:58 18:50 Temperature 36.7 C Heart Rate 118 H 98 Respiratory 16 20 Rate Blood Pressure 169/63 H 144/89 H O2 Saturation 97 98 Oxygen O2 Source Room air - Rads (name of study) CT thoracic spine Relevant Findings:: Final report received, See rad report CT lumbar spine Relevant Findings:: Final report received, See rad report PD Medical Decision Making - ED course Complexity details: reviewed results, re-evaluated patient, considered differential, d/w patient ED course: 68-year-old female with back pain. History of osteoporosis and compression fractures, concerned about potential new compression fracture. No acute findings on CT scan. She states that Flexeril usually works better for her back pain, will prescribe this for her. She declines any other pain medication for home. Ambulating well. Neurovascular intact. No evidence of cauda equina, epidural abscess. No focal neurological deficits. Patient counseled regarding signs and symptoms for which I believe and urgent re-evaluation would be necessary. Patient with good understanding of and agreement to plan and is comfortable going home at this time This document was made in part using voice recognition software. While efforts are made to proofread this document, sound alike and grammatical errors may occur. Departure - Departure Disposition: 01 Home, Self Care Clinical Impression: Back spasm Condition: Good Instructions: ED Spasm Back No Trauma Follow-Up: JORGITO DORADO DO [Primary Care Provider] - Prescriptions: Cyclobenzaprine [Flexeril] 10 mg PO TID PRN #20 tablet PRN Reason: Spasms Comments: Your prescription was sent to the [facility] pharmacy. You can use the Flexeril as needed for pain at home. Please follow-up with your doctor for further care. Your CT scans did not show any acute fractures today. Discharge Date/Time: 09/18/23 18:51
--- NOTE | 2023-09-18 18:16 | CT Report ---
PROCEDURE: CT lumbar spine without contrast INDICATIONS: back pain, h/o fractures,osteoporosis, inc pain TECHNIQUE: Helical axial CT of the lumbar spine was obtained without contrast and reformatted in mul tiple planes. Radiation dose reduction was achieved utilizing automated exposure control or adjustmen t of mA and/or kV according to patient size. COMPARISON: None. FINDINGS: Bones: There is normal bony alignment. No acute vertebral body compression fractures. No suspiciou s lytic or blastic bony lesions. Central spinal caliber is of normal overall caliber. No pars defec ts. Soft tissues: No retroperitoneal masses or hematomas. Atherosclerotic calcification of the abdomina l aorta without evidence of aneurysm. T12-L1: Normal in appearance. L1-L2: Normal in appearance. L2-L3: Normal in appearance. L3-L4: Disc height is maintained. Hypertrophic facet joints and mild disc bulge with mild central s tenosis. No foraminal stenosis L4-L5: Disc height is maintained. Mild disc bulge and hypertrophic facet joints results in mild lyndon tral and no foraminal stenosis. L5-S1: Normal in appearance. IMPRESSION: Mild degenerative disc disease and arthropathy without significant central or foraminal stenosis thro ughout the exam Reviewed by: Jude Meneses MD on 09/18/2023 5:15 PM [place] Approved by: Jude Meneses MD on 09/18/2023 5:15 PM [place] Station ID: [id number]
--- NOTE | 2023-09-18 18:18 | CT Report ---
PROCEDURE: CT thoracic spine without contrast INDICATIONS: back pain, h/o fractures,osteoporosis, inc pain TECHNIQUE: Noncontrast 3 mm thick sections acquired through the region of interest in the thoracic spine. Sagit stanley and coronal reformats were then constructed. For radiation dose reduction, the following was used : automated exposure control, adjustment of mA and/or kV according to patient size. COMPARISON: 03/25/2023 FINDINGS: Image quality: Excellent. Bones: There is normal overall bony alignment. The T7 wedge-shaped compression fracture without retr opulsed fracture fragment. Remainder the vertebral body heights and alignment is maintained. No centr al or foraminal stenosis.. No suspicious sclerotic or lytic bony lesions. Central spinal canal is o f normal overall caliber. Soft tissues: No paravertebral masses or hematomas. Visualized posteromedial lungs appear clear. IMPRESSION: T7 compression fracture without canals compromise, stable from prior exam 03/25/2023 Reviewed by: Jude Meneses MD on 09/18/2023 5:17 PM AKST Approved by: Jude Meneses MD on 09/18/2023 5:17 PM AKST Station ID: [id number]
[2023-09-18 18:52] VITALS: BP 144/89; O2SAT 98
== END 2023-09-18 18:51 | disposition home or self-care (01) ==
LOC: ED 16:44
DX: M62.830 Muscle spasm of back (principal)
CPT/HCPCS: 96372; 99283; 99284

== ENCOUNTER 2023-10-20 15:51 | Outpatient (CLI) | payer MEDICARE, MEDICAID | END 2023-10-20 15:52 | disposition critical access hospital (66) | LOC: EMS 15:51 | DX: M25.562 Pain in left knee (principal); M25.662 Stiffness of left knee, not elsewhere classified | CPT/HCPCS: A0425; A0429 ==

== ENCOUNTER 2023-10-20 15:58 | Emergency (ER) | payer MEDICARE, MEDICAID ==
[2023-10-20] MEDS ORDERED: KETOROLAC 60 MG/2 ML VIAL IM STA (16:04)
[2023-10-20] MEDS ORDERED: ACETAMINOPHEN/CODEINE 300 MG/30 MG TABLET PO STA ×2 (16:04→17:07)
--- NOTE | 2023-10-20 16:08 | ED Physician Documentation ---
History of Present Illness - Stated complaint Stated Complaint: L KNEE PX - Chief complaint Chief Complaint: Ext Problem - History obtained from History obtained from: Patient, EMS - History of Present Illness Timing: Today Pain level max: 7 Pain level now: 7 - Additonal information Additional information: Patient is a 68-year-old female who presents to the emergency department left knee pain. She states that she was trimming her toenails with her leg out to the side and developed pain in the left knee. She called 911. Did not take anything for pain at home. No swelling. No falls. No trauma. No twisting. She states occasionally there is numbness that goes down her leg. Not numb now. She states she has had trouble with this knee in the past but never had surgery on the knee. 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: None : None HEENT: Other Psych: Anxiety Musculoskeletal: None Derm: None - Past Surgical History Past Surgical History: Yes General: Hiatal hernia repair, EGD /[employer]MENT REPAIRMEN: Breast reduction HEENT: Tonsil/Adenoidectomy - Present Medications Home Medications: Ambulatory Orders Medication Instructions Recorded Confirmed Cyclobenzaprine [Flexeril] 10 mg PO PRN PRN 12/15/14 05/05/21 Cholecalciferol (Vitamin D3) 1,000 unit PO DAILY 10/14/16 05/05/21 [Vitamin D3] Cyanocobalamin (Vitamin B-12) 1,000 mcg PO DAILY 10/14/16 05/05/21 [Vitamin B-12] Red Marine Algae 0 10/14/16 Cyclobenzaprine [Flexeril] 10 mg PO TID PRN #14 tablet 04/23/20 05/05/21 tiZANidine [Zanaflex] 4 mg PO Q8H PRN #25 tablet 01/07/21 05/05/21 clonazePAM [Clonazepam] 1 tab PO DAILY 05/05/21 05/05/21 Acetaminophen/Cod 300/30 [Tylenol 1 each PO Q4-6H PRN #30 tablet 01/01/23 #3] methocarbamoL [Robaxin] 500 mg PO Q6H PRN #30 tablet 03/25/23 Cyclobenzaprine [Flexeril] 10 mg PO TID PRN #20 tablet 09/18/23 Acetaminophen/Cod 300/30 [Tylenol 1 each PO Q4-6H PRN #20 tablet 10/20/23 #3] - Allergies Allergies/Adverse Reactions: Allergies Allergy/AdvReac Type Severity Reaction Status Date / Time lithium [[place]] Allergy Severe swelling Verified 10/20/23 16:09 albuterol Allergy Intermediate tachycardia Verified 10/20/23 16:09 hydromorphone HCl * Allergy Mild itchy Verified 10/20/23 16:09 [From Dilaudid] cyclobenzaprine Allergy Hives Verified 10/20/23 16:09 [From Flexeril] gluten Allergy Unknown Verified 10/20/23 16:09 peanut Allergy Unknown Verified 10/20/23 16:09 sesame seed Allergy Unknown Verified 10/20/23 16:09 wheat Allergy Unknown Verified 10/20/23 16:09 hydrocodone AdvReac Itching Verified 10/20/23 16:09 oxycodone AdvReac Itching Verified 10/20/23 16:09 dairy Allergy Unknown Uncoded 10/20/23 16:09 - Social History Does the pt smoke?: No Smoking Status: Never smoker Does the pt drink ETOH?: No Does the pt have substance abuse?: Yes - Immunizations Immunizations are current?: Yes - POLST Patient has POLST: No PD ED PE NORMAL - Vitals Vital signs reviewed: Yes - General General: Alert and oriented X 3, No acute distress - Cardiac Cardiac: RRR - Respiratory Respiratory: No respiratory distress, Clear bilaterally - Derm Derm: Warm and dry - Extremities Extremities: Other (L knee - Limited range of motion secondary to pain. Neurovascular intact. No significant joint effusion. Patella tracks normally. ACL, MCL, PCL, LCL are intact. No joint line tenderness. Otherwise normal exam) - Neuro Neuro: Alert and oriented X 3 - Psych Psych: Normal mood, Normal affect Results - Vitals Vitals: Vital Signs - 24 hr 10/20/23 10/20/23 10/20/23 16:04 16:32 17:53 Temperature 36.2 C L 37.2 C Heart Rate 101 H 91 81 Respiratory 20 15 15 Rate Blood Pressure 133/110 H 139/74 H 126/62 O2 Saturation 97 95 100 Oxygen O2 Source Room air - Rads (name of study) Left knee x-ray Relevant Findings:: Final report received, See rad report PD Medical Decision Making - ED course Complexity details: reviewed results, re-evaluated patient, considered differ ential, d/w patient ED course: Pain improved with Toradol and Tylenol 3. Placed in articulating knee brace. No significant knee effusion. X-ray consistent with osteoarthritis. Does not appear to be a locked meniscus. She is able to move the knee after pain medication. Will have her follow-up with her doctor for further care. No indication for emergent MRI. No evidence of septic joint. No skin changes. No bruising. Neurovascular intact. Patient counseled regarding signs and symptoms for which I believe and urgent re-evaluation would be necessary. Patient with good understanding of and agreement to plan and is comfortable going home at this time This document was made in part using voice recognition software. While efforts are made to proofread this document, sound alike and grammatical errors may occur. Departure - Departure Disposition: 01 Home, Self Care Clinical Impression: Arthritis of knee Condition: Good Instructions: ED Degenerative Joint Disease Follow-Up: JORGITO DORADO DO [Primary Care Provider] - Within 1 week Prescriptions: Acetaminophen/Cod 300/30 [Tylenol #3] 1 each PO Q4-6H PRN #20 tablet PRN Reason: knee pain Comments: Your prescription was sent to the [facility] pharmacy. You can use the medication as needed for pain. Wear the brace as well. Please follow- up with your doctor within 1 week for repeat evaluation. Your x-ray today shows arthritis in your knee. Your doctor may want to order an MRI or refer you to an orthopedist I am prescribing a short course of narcotic pain medication for you. These are potentially dangerous and addictive medications that should be used carefully. These medications may constipate you. Take an lyrv-yzo-dkcbzal stool softener (docusate) twice daily with plenty of water while taking these medications. If you go 24 hours without a bowel movement, take omqh-arq-peetxte miralax, per package instructions. Do not drink or drive while taking these medications. If you received narcotic or sedating medications while in the emergency department, do not drive for 24 hours. Store this medication in a safe, secure place and out of reach of children. It is a violation of federal law to give or sell this medication to another person or to use in a manner other than prescribed. The ED will not refill narcotic prescriptions, including prescriptions lost or stolen. To dispose of unwanted medications: 1. [facility] [address] [facility] [place] has a medication drop box. They accept prescription medications (in pill form) Wednesday through Wednesday 9:00 a.m. to 5:00 p.m. 2. [facility] accepts prescription medications (in pill form only) for disposal year round. Call for more information. 3. Contact the [facility] for the next [facility] sponsored prescription drug collection event. , [phone], or [phone]; Forms: PCP List Discharge Date/Time: 10/20/23 17:55
--- NOTE | 2023-10-20 16:29 | XRAY Report ---
PROCEDURE: Knee 4 View LT INDICATIONS: L knee pain, no injury TECHNIQUE: 3 views of the knee(s) were acquired. COMPARISON: None. FINDINGS: Bones: No fractures or dislocations. No suspicious bony lesions. Mild to moderate tricompartmenta l arthritic change. Soft tissues: No knee joint effusion. No suspicious soft tissue calcifications or masses. IMPRESSION: Mild to moderate tricompartmental arthritic change. Reviewed by: Nataliya Garcia MD on 10/20/2023 4:28 PM PST Approved by: Nataliya Garcia MD on 10/20/2023 4:28 PM PST Station ID: [id number]
[2023-10-20 18:16] VITALS: BP 126/62; O2SAT 100
== END 2023-10-20 17:55 | disposition home or self-care (01) ==
LOC: EDUNIT# → ED 15:58
DX: M17.12 Unilateral primary osteoarthritis, left knee (principal)
CPT/HCPCS: 73564; 99283; A9270

== ENCOUNTER 2023-12-14 08:00 | Outpatient (CLI) | payer MEDICARE, MEDICAID ==
--- NOTE | 2023-12-14 17:02 | XRAY Report ---
PROCEDURE: Knee 4 View LT INDICATIONS: LEFT KNEE PAIN TECHNIQUE: 3 views of the knee(s) were acquired. COMPARISON: None. FINDINGS: Bones: No fractures or dislocations. No suspicious bony lesions. Diffuse osteopenia. Soft tissues: No knee joint effusion. No suspicious soft tissue calcifications or masses. IMPRESSION: Diffuse osteopenia. No acute bony abnormality. If there remains a high clinical concern for fracture, consider cross-sectional imaging now. If pain persists, consider repeat x-ray in 10-14 days or cross -sectional imaging. Reviewed by: Mukund Irby MD on 12/14/2023 5:01 PM PST Approved by: Mukund Irby MD on 12/14/2023 5:01 PM PST Station ID: [id number]
== END 2023-12-14 23:59 | disposition home or self-care (01) ==
LOC: DI.WOS 08:00
PROVIDERS: ATTEND Orthopaedic Surgery
DX: M25.562 Pain in left knee (principal); M85.862 Other specified disorders of bone density and structure, left lower leg

== ENCOUNTER 2023-12-22 17:40 | Outpatient (CLI) | payer MEDICARE, MEDICAID ==
--- NOTE | 2023-12-23 12:03 | MRI Report ---
PROCEDURE: Knee LT WO INDICATIONS: INJURY TO LEFT KNEE TECHNIQUE: Noncontrast sagittal PD fast spin echo and T2 fast spin echo with fat saturation, sagittal 3-D gradie nt sequence with fat saturation; coronal T1 spin echo and PD fast spin echo with fat saturation, and axial PD fast spin echo with fat saturation through the knee. COMPARISON: X-ray left knee, 12/22/2023. FINDINGS: Image quality: Excellent. Menisci: There is medial meniscal extrusion. The medial and lateral menisci demonstrate normal morph ology and internal signal. The meniscal root ligaments appear intact. Cruciate ligaments: The anterior and posterior cruciate ligaments appear intact. Medial structures: The medial collateral ligament appears intact. The semimembranosus tendon insert ions and meniscocapsular junction appear intact. Visualized portions of the pes anserinus tendons ap pear normal. No abnormal bursal fluid. Lateral structures: The lateral collateral ligament, long and short heads of the biceps femoris tend on appear intact. The popliteus tendon appears normal. Iliotibial band appears normal. Anterior structures: The quadriceps and patellar tendons appear intact. There is low-grade quadrice ps tendinitis at the patellar insertion. Mild patellar tendinitis in the distal patellar tendon at th e tibial tubercle insertion. Patellar alignment is normal. No femoral trochlear dysplasia or ventral trochlear prominence. No edema in the infrapatellar fat pad. Bones and cartilage: No bone marrow contusions or fractures. Mild cartilage fibrillation with preser marianne cartilage thickness. Joint space: There is trace knee joint fluid. There is a tiny Chambers's cyst. Normal appearing synovi al plicae are incidentally noted. IMPRESSION: 1. No meniscal or ligamentous injuries. 2. No fracture or bone contusions. 3. Medial meniscal extrusion. 4. Mild patellar tendinitis and quadriceps tendinitis. 5. Early cartilage degeneration with preserved cartilage thickness. Line Reviewed by: Richie Silva MD on 12/23/2023 12:01 PM PST Approved by: Richie Silva MD on 12/23/2023 12:01 PM PST Station ID: [id number]
== END 2023-12-22 17:41 | disposition home or self-care (01) ==
LOC: DI 17:40
PROVIDERS: ATTEND Orthopaedic Surgery
DX: M23.304 Other meniscus derangements, unspecified medial meniscus, left knee (principal); M76.52 Patellar tendinitis, left knee; M76.892 Other specified enthesopathies of left lower limb, excluding foot; M23.8X2 Other internal derangements of left knee